=== PATIENT | female | born 1950 | race Caucasian/White ===

== ENCOUNTER 2016-09-14 11:34 | Day surgery (SDC) | payer OTHER ==
[~2016-09-14] VITALS: Ht 142.2 cm; Wt 85.7 kg
[~2016-09-14 11:34] MED LIST: /DULO30CA OR; /INSU7030 SC; /INSULEV SUBQ; ACET1TAB17 PO; ACET50TAOT PO; ACET65TA OR; ADVAIR INH; ASPI1TAB PO; ASPI81CH32 PO; ASPI81TA83 OR; ASPI81TA85 PO; ATOR40TA75 PO; AZEL0.055; BACT800T5 PO; BENI20TA11 OR; CALC500T31 PO; CIPR-250 PO; FLAG500T PO; FLON0.05; FLUT1SPR2; FURO40TA2 PO; GLUC4CHW PO; GLUC4GMTAB PO; HUMA100I SC; HYDR12CA PO; IMOD2TAB16 PO; IRON65TA PO; K-TA10TA OR; LASI40TA OR; LASI40TA PO; LATA5OPD OU; LEVO100T5 PO; LISI-538 PO; LISI10TA4 PO; LISI20TA5 PO; LOPE2CA PO; LOPR50TA OR; METO50TA7 PO; NITR0.4S SL; NITR4TASL SL; NOVO1INJ4 SC; NOVOLOG SUBQ; NOVOLOG100 MG/ML SC; OMEP20TA PO; OMEP20TA7 OR; ONDA4TAB5 PO; PROAAER10 INH; PROVENTIL; ROSU10TA OR; SIMV40TA2 OR; SIMV40TA2 PO; SYMB16INH INH; SYNT100T OR; SYNT125T PO; TRUL0.5I SC; VICTOZA SUBQ; VITA-112 PO; VITA-122 PO; [UNRECOGNIZED DRUG - OTHER] INH; actos PO; antibiotic; asa PO; januvia PO; levamir SC; lortab PO; potassium OR; symbicort INH
[2016-09-14] MEDS ORDERED: LR 500 ML IV ONE (11:45)
[2016-09-14] MEDS ORDERED: LIDOCAINE 1% SDV 5 ML VIAL SQ ONE (11:45)
[2016-09-14] MEDS ORDERED: NS 1,000 ML IV SCH (11:45)
[2016-09-14] MEDS ORDERED: BUPIVACAINE HCL 0.25% 30 ML VIAL As Ordered ONE (12:45)
[2016-09-14] MEDS ORDERED: LIDOCAINE 1% SDV INJ 30 ML VIAL As Ordered ONE ×2 (12:45→13:31)
[2016-09-14] MEDS ORDERED: HEPARIN SOD (PORCINE) 5000 UNITS/ML VIAL As Ordered ONE ×2 (12:46→13:31)
[2016-09-14] MEDS ORDERED: BUPIVACAINE HCL 0.5% 30 ML VIAL As Ordered ONE (13:31)
[2016-09-14] MEDS ORDERED: PROPOFOL 500 MG/50 ML VIAL As Ordered ONE (13:34)
[2016-09-14] MEDS ORDERED: LIDOCAINE 2% INJ 100 MG/5 ML SDV (FOR ANES.) As Ordered ONE (13:34)
[2016-09-14] MEDS ORDERED: MIDAZOLAM INJ 2 MG/2 ML VIAL (J2250) As Ordered ONE (13:34)
[2016-09-14] MEDS ORDERED: fentaNYL 250 MCG/5 ML INJECTION (J3010) As Ordered ONE (13:34)
[2016-09-14] MEDS ORDERED: ONDANSETRON 4MG/2ML VIAL (J2405) As Ordered ONE (13:43)
[2016-09-14] MEDS ORDERED: PHENYLephrine HCL 500 MCG/5 ML (100MCG/ML) SYRINGE (J2370) As Ordered ONE (13:46)
[2016-09-14 15:45] VITALS: BP 196/71
[2016-09-14] MEDS ORDERED: ACETAMINOPHEN TAB 650MG DOSE (2X325MG) PO ONE (15:45)
--- NOTE | 2016-09-14 20:48 | ROOPDOC ---
[facility] Report Of Operation Report of Operation DATE OF PROCEDURE: 09/14/16 PREOPERATIVE DIAGNOSES: Chronic renal insufficiency nearing end-stage renal disease. POSTOPERATIVE DIAGNOSES: Chronic renal insufficiency nearing end-stage renal disease. PROCEDURE: Exploration of the right cephalic vein at the wrist. Right brachiocephalic arteriovenous fistula formation SURGEON: Dr. Manpreet Benito MD HADOOP ADMIN: None INDICATION: Patient is a 66-year-old female with chronic renal insufficiency nearing end-stage renal disease. Patient was evaluated and recommended to undergo a right radiocephalic possible brachiocephalic arteriovenous fistula formation. Risks, benefits and alternative treatment options were discussed with the patient. Benefits included but were not limited to presence of a functioning arteriovenous fistula at the time of hemodialysis initiation preventing need for central tunnel venous catheter for dialysis access. Alternative treatment options included but were not limited to no intervention. Risks included but were not limited to infection, bleeding, worsening of the patient's renal function requiring hemodialysis sooner than expected, failure of arterial venous access to maintain patency with thrombosis, failure of arterial venous access to mature requiring secondary intervention, steal syndrome, possible need for further open surgical intervention, cerebrovascular accident, myocardial infarction, pulmonary embolus, DVT, loss of limb, loss of life and poor outcome. Patient's questions were answered. The patient accepts these risks and consents to proceed with a right radiocephalic possible right brachiocephalic arteriovenous fistula formation. ANESTHESIA: Local Mac with 18 cc of 1% lidocaine mixed with 0.5% Marcaine. ESTIMATED BLOOD LOSS: Approximately 25 mL. IV FLUIDS: 100 cc HEPARIN: None PROTAMINE: None COMPLICATIONS: None. DRAINS: None SPECIMENS: None IMPLANTS: None PROCEDURE: Patient was taken to the operating room, placed supine on the operating room table and prepped and draped in a standard surgical fashion. A time out was then completed with myself and all the staff in the room with confirmation of the correct procedure, patient, and laterality. A tourniquet was applied to the right upper extremity the location of the cephalic vein at the wrist was marked as well as the radial artery. An incision was made overlying the cephalic vein after anesthetized the overlying skin of 1% lidocaine mixed with 0.5% Marcaine. An incision was made with a scalpel and carried down through the skin and subcutaneous tissue with Metzenbaum scissors. The cephalic vein was dissected free sharply and noted to be small and sclerotic and was not a good candidate for use for hemodialysis access creation. Hemostasis was obtained after which the incision was closed using 3- 0 Monocryl to close the skin in a running subcuticular fashion. Steri-Strips and dressings were applied The overlying skin at the antecubital fossa was then anesthetized with 1% lidocaine mixed with 0.5% Marcaine. The incision was then made transversely at the antecubital fossa. The cephalic vein was then sharply dissected free and clamped as far distal as possible. The cephalic vein was then transected with the remnant ligated distally using an a 3-0 silk suture. The brachial artery was then sharply dissected free and encircled with vessel loops. The cephalic vein was then dilated with heparinized saline and noted to flush easily. The cephalic vein was then brought to the brachial artery and was noted to be of adequate length and without tension.. The cephalic vein was then anastomosed to the brachial artery in an end to side fashion, after an arteriotomy was made in the brachial artery and after clamping proximally and distally. Once the anastomosis was completed and good flow was noted in the cephalic vein and the distal brachial artery with ultrasound evaluation. Hemostasis was obtained and the incision was closed using 2-0 Vicryl to approximate the deeper layers and 3-0 Monocryl suture in a running subcuticular fashion to approximate the skin. All instrument, sponge and needle counts were correct at the end of the case. There was good flow noted in the fistula with a thrill palpable. The right hand was well perfused after creation of the brachiocephalic arteriovenous fistula. Dr. Benito was present for and directed the entire case. There were no complications. Patient was transferred to the recovery room awake, alert, extubated and in stable condition. There was a thrill palpable in the cephalic vein in the right upper arm. Craig Benito MD Sep 14, 2016 20:48
--- NOTE | 2016-09-15 22:36 | ECGEPIP ---
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
== END 2016-09-14 16:15 | disposition home or self-care (01) ==
LOC: M SDC 11:34
PROVIDERS: ATTEND Surgery Vascular Surgery
DX: N18.4 Chronic kidney disease, stage 4 (severe) (principal); E11.9 Type 2 diabetes mellitus without complications; I10 Essential (primary) hypertension; I25.2 Old myocardial infarction; Z98.61 Coronary angioplasty status; E78.5 Hyperlipidemia, unspecified; E03.9 Hypothyroidism, unspecified; K44.9 Diaphragmatic hernia without obstruction or gangrene; K21.9 Gastro-esophageal reflux disease without esophagitis; Z79.899 Other long term (current) drug therapy; Z91.040 Latex allergy status; Z88.8 Allergy status to other drugs, medicaments and biological substances; Z79.82 Long term (current) use of aspirin
CPT/HCPCS: 36415; 36821; 84132; 93005; J2250; J2370; J2405; J3010

== ENCOUNTER 2016-09-17 11:57 | Day surgery (SDC) | payer OTHER ==
[~2016-09-17] VITALS: Ht 142.9 cm; Wt 84.6 kg
[2016-09-17] MEDS ORDERED: HUMA75VL SC ×2 (12:13)
[2016-09-17] MEDS ORDERED: AZOP0.2S OU (13:14)
[2016-09-17] MEDS ORDERED: CALC1CAP31 PO (13:14)
[2016-09-17] MEDS ORDERED: CLINDAMYCIN INJ 900MG/6ML VIAL As Ordered ONE (14:23)
[2016-09-17] MEDS ORDERED: CONRAY-60 60% 50ML VIAL (Q9961) As Ordered ONE (14:23)
[2016-09-17] MEDS ORDERED: BUPIVACAINE HCL 0.5% 30 ML VIAL As Ordered ONE ×2 (15:36→16:14)
[2016-09-17] MEDS ORDERED: LIDOCAINE 1% SDV INJ 30 ML VIAL As Ordered ONE ×2 (15:36→16:14)
[2016-09-17] MEDS ORDERED: fentaNYL 100 MCG/2 ML INJECTION (J3010) As Ordered ONE ×2 (15:44→16:46)
[2016-09-17] MEDS ORDERED: MIDAZOLAM INJ 2 MG/2 ML VIAL (J2250) As Ordered ONE (15:44)
[2016-09-17] MEDS ORDERED: HEPARIN SOD (PORCINE) 5000 UNITS/ML VIAL As Ordered ONE (16:14)
[2016-09-17] MEDS ORDERED: ALBUTEROL 90 MCG/ACT 8GM HFA INHALER INH PRN (17:30)
[2016-09-17] MEDS ORDERED: NITROGLYCERIN 0.4 MG SUBL TABLET SL PRN (17:30)
[2016-09-17] MEDS ORDERED: ACETAMINOPHEN TAB 650MG DOSE (2X325MG) PO PRN (17:30)
[2016-09-17] MEDS ORDERED: PERCOCET 5MG/325MG TAB As Ordered ONE (17:57)
[2016-09-17] MEDS ORDERED: NS 1,000 ML IV SCH (18:15)
[2016-09-17] MEDS ORDERED: ONDANSETRON 4MG/2ML VIAL (J2405) IV PRN (18:15)
[2016-09-17] MEDS ORDERED: PERCOCET 5MG/325MG TAB PO PRN (18:15)
[2016-09-17] MEDS ORDERED: fentaNYL 100 MCG/2 ML INJECTION (J3010) IV PRN (18:15)
[2016-09-17 18:45] VITALS: BP 140/82
[2016-09-17 19:15] VITALS: BP 167/72
[2016-09-17 19:45] VITALS: BP 158/70
[2016-09-17 20:45] VITALS: BP 142/67
[2016-09-17 21:45] VITALS: BP 137/64
[2016-09-17] MEDS: ATORVASTATIN 20 MG TAB PO SCH (22:06)
[2016-09-17] MEDS: NORCO, ANEXSIA 5/325MG TABLET (HYDROcodone/ACETAMINOPHEN) PO PRN (22:07)
[2016-09-17] MEDS: METOPROLOL TART 50 MG TAB PO SCH (22:07)
[2016-09-17] MEDS: HumaLOG 75/25 MIX INSULIN PER UNIT SC SCH (22:07)
[2016-09-17] MEDS: BRINZOLAMIDE 1 % OPHTH SUSP (AZOPT) 10ML OU SCH (22:08)
[2016-09-17] MEDS: LATANOPROST 0.005% OPHTH SOLN 2.5 ML OU SCH (22:08)
[2016-09-17 22:45] VITALS: BP 134/63
--- NOTE | 2016-09-17 23:47 | ROOPDOC ---
[facility] Report Of Operation Report of Operation DATE OF PROCEDURE: 09/17/16 PREOPERATIVE DIAGNOSES: Chronic renal insufficiency. Right hand pain, swelling and ischemia. Status post right brachiocephalic arterial venous fistula formation. POSTOPERATIVE DIAGNOSES: Chronic renal insufficiency. Right hand pain, swelling and ischemia. Status post right brachiocephalic arterial venous fistula formation. . PROCEDURE: Ligation right upper arm cephalic vein. Right brachial artery exploration with thromboembolectomy and patch angioplasty with XenoSure biologic patch. Ultrasound evaluation of the right brachial artery. Removal of ligation of cephalic vein and bandaging of cephalic vein. SURGEON: Dr. Manpreet Benito MD ELEMENTARY LIBRARIAN: None INDICATION: Patient is a 66-year-old female with chronic renal insufficiency who underwent creation of a right brachiocephalic arteriovenous fistula after exploration of the stopping at the wrists showed a cephalic vein which was not usable for hemodialysis access creation. Patient presented today with pain swelling and loss of motor and sensory in the right hand. Patient will undergo ligation of the arteriovenous fistula secondary to steal syndrome. Risks benefits and alternative treatment options were discussed with the patient. Benefits including but when not limited to return of function to her right hand and resolution of her symptoms. Alternative treatment options included but were not limited to no intervention. Risks included but were not limited to infection, bleeding, worsening of renal function requiring hemodialysis sooner than expected, cerebrovascular accident, myocardial infarction, pulmonary embolus, deep venous thrombosis, possible need for further surgical intervention , loss of limb, loss of life and poor outcome. Patient's questions were answered. Patient understands and accepts these risks and consents to proceed. ANESTHESIA: Local mac. ESTIMATED BLOOD LOSS: Approximately 20 mL. IV FLUIDS: 100 cc HEPARIN: 5000 units PROTAMINE: None COMPLICATIONS: None. DRAINS: None SPECIMENS: None IMPLANTS: The XenoSure patch for patch angioplasty of the right brachial artery PROCEDURE: Patient was taken to the operating room placed on the operating table in the right upper extremity was prepped and draped in a standard surgical fashion. A timeout was performed with myself and the staff members in the room confirming the correct patient, procedure and laterality. The skin overlying the cephalic vein above the antecubital fossa was anesthetized with 1 % lidocaine mixed with 0.5% Marcaine.. The cephalic vein was encircled with a 2 -0 silk suture and this was used to ligate the cephalic vein. There was still a good thrill in the fistula and a second stab incision was made with ligation of the cephalic vein which resulted in pulsatility of the right brachiocephalic arteriovenous fistula. The right-handed not perfuse well after ligation of the fistula. Radial and ulnar pulses were not able to be found with palpation or with the Doppler ultrasound. Ultrasound was then used to visualize the brachial artery above and below the anastomosis and at the anastomosis. The ultrasound showed the brachial artery to be widely patent needs a compressible free of thrombus above the anastomosis in anastomosis was widely patent but there was thrombus visualized within the brachial artery distal to the anastomosis of the brachial artery to the cephalic vein. The incision overlying the fistula creation was then opened. The brachial artery was sharply dissected free proximally and distally and then clamped after the patient had received heparin for systemic anticoagulations. An arteriotomy was made in the brachial artery and elongated proximally and distally with pot scissors. Upon opening the brachial artery there was thrombus noted distal to the arterial venous anastomosis. This was removed. There was good back bleeding from the brachial artery with retrograde flushing. There was good in flow noted with antegrade flushing of the brachial artery. The arteriotomy was then closed using a XenoSure biologic patch and 5-0 Prolene suture in a running continuous fashion. There was good flow noted in the brachial artery proximal and distal to the arch of venous anastomosis which was evaluated with Doppler ultrasound. The previously placed silk sutures are out. Vein were removed. There was good flow in the arteriovenous fistula. Doppler was then used to evaluate the brachial artery distal to the arch of venous anastomosis and the flow was noted to be monophasic. A 5-0 Prolene suture was then used to reduce the size of the cephalic vein just after the arterial venous anastomosis. There was still good flow in the fistula after bending of the cephalic vein and the flow in the brachial artery distal to the arterial venous anastomosis was now triphasic. The patient also had palpable radial and ulnar pulses at this time. The wounds were then closed with 2-0 Vicryl approximated beeper layers and 3-0 Monocryl to approximate the skin in a running subcuticular fashion. Steri-Strips and dressings were applied. All instrument, sponge and needle counts were correct at the end of the case. There were no complications. Dr. Benito was present for and directed entire case. Patient was transferred to the recovery room extubated, awake, alert and in stable condition. Craig Benito MD Sep 17, 2016 23:46
[2016-09-18] VITALS: BP 121/61
[2016-09-18 04:00] VITALS: BP 137/60
[2016-09-18] MEDS: NORCO, ANEXSIA 5/325MG TABLET (HYDROcodone/ACETAMINOPHEN) PO PRN ×2 (04:13→17:05)
[2016-09-18] MEDS: LEVOTHYROXINE 100MCG TABLET (0.1MG) PO SCH (05:33)
[2016-09-18] MEDS: HumaLOG 75/25 MIX INSULIN PER UNIT SC SCH ×4 (07:30→20:24)
[2016-09-18] MEDS: SYMBICORT 160/4.5MCG INHALER 6GM INH SCH ×2 (07:59→20:51)
[2016-09-18 08:00] VITALS: BP 149/70
[2016-09-18] MEDS ORDERED: ONDANSETRON 4MG/2ML VIAL (J2405) IV PRN (08:30)
[2016-09-18] MEDS ORDERED: ONDANSETRON 4 MG TAB (S0181) PO PRN (08:30)
[2016-09-18] MEDS ORDERED: ONDANSETRON 4MG/2ML VIAL (J2405) As Ordered ONE (08:44)
[2016-09-18] MEDS ORDERED: SLF 3 ML SYR IV PRN (09:00)
[2016-09-18] MEDS: CALCITRIOL 0.25 MCG CAP (S0169) PO SCH (10:00)
[2016-09-18] MEDS: VITAMIN D 1,000 INTERNATIONAL UNITS TABLET PO SCH (10:00)
[2016-09-18] MEDS: OMEPRAZOLE 20 MG CAP PO SCH (10:01)
[2016-09-18] MEDS: ASPIRIN 81 MG ENTERIC TAB PO SCH (10:01)
[2016-09-18] MEDS: METOPROLOL TART 50 MG TAB PO SCH ×2 (10:02→21:09)
[2016-09-18] MEDS: FUROSEMIDE 40 MG TAB PO SCH (10:02)
[2016-09-18] MEDS: BRINZOLAMIDE 1 % OPHTH SUSP (AZOPT) 10ML OU SCH ×2 (10:02→21:08)
[2016-09-18 12:00] VITALS: BP 142/69
[2016-09-18] MEDS: SLF 3 ML SYR IV SCH ×2 (14:00→21:09)
[2016-09-18 16:00] VITALS: BP 135/60
[2016-09-18] MEDS ORDERED: HumaLOG 75/25 MIX INSULIN PER UNIT SC ONE (18:15)
[2016-09-18 20:00] VITALS: BP 142/67
[2016-09-18] MEDS: LATANOPROST 0.005% OPHTH SOLN 2.5 ML OU SCH (21:08)
[2016-09-18] MEDS: ATORVASTATIN 20 MG TAB PO SCH (21:09)
--- NOTE | 2016-09-18 22:29 | IPNPDOC ---
Date Seen The patient was seen on 09/18/16. Progress Note SUBJECTIVE: Patient is complaining of pain in her right hand with some mild numbness and tingling. OBJECTIVE PHYSICAL EXAMINATION: VITAL SIGNS: Please see below. GENERAL: Sitting up eating dinner comfortably HEENT: Normal CARDIOVASCULAR: Regular rate and rhythm. RESPIRATORY: Clear to auscultation bilaterally. ABDOMINAL: Soft nontender nondistended EXTREMITIES: Right upper extremity well-perfused incisions clean, 2+ brachial radial and ulnar pulses the upper extremity. There is swelling in the hand and fingers with good range of motion. NEUROLOGICAL: Awake alert oriented x3 PSYCHOLOGICAL: Normal LABORATORY DATA: Please see below. MICROBIOLOGY: Please see below. DVT prophylaxis ordered?: Patient will risk for DVT and is up and ambulatory. ASSESSMENT AND PLAN: This is a 66-year-old white female with right hand numbness and tingling after undergoing a right brachiocephalic rupture of his fistula. The patient underwent revision of the fistula with findings of thrombosis of the brachial artery distal to the arteriovenous anastomosis. The patient now has good perfusion of the right hand with widely patent brachial artery. PROBLEMS: 1. right hand pain and swelling: Patient's and his well-perfused but continues to have pain and swelling in the right hand. 2 DISPOSITION: Patient for probable discharge 09/19/2016. VS, I&O, 24H, Fishbone Vital Signs/I&O Vital Signs Date Time Temp Pulse Resp B/P (MAP) Pulse Ox O2 Delivery O2 Flow Rate FiO2 09/18/16 21:09 76 142/67 09/18/16 20:00 97.7 16 95 Room Air I&O- Last 24 Hours up to 6 AM 09/18/16 06:00 Intake Total 1100 ml Output Total 720 ml Balance 380 ml Laboratory Data 24H LABS Laboratory Tests 2 09/18/16 06:03: Bedside Glucose (Misc Panel) 80 09/18/16 07:56: Bedside Glucose (Misc Panel) 106 09/18/16 11:42: Bedside Glucose (Misc Panel) 238H 09/18/16 16:45: Bedside Glucose (Misc Panel) 122H 09/18/16 20:07: Bedside Glucose (Misc Panel) 54L 09/18/16 21:07: Bedside Glucose (Misc Panel) 80 Craig Benito MD Sep 18, 2016 22:29
[2016-09-19] VITALS: BP 148/67
[2016-09-19 04:00] VITALS: BP 139/69
[2016-09-19] MEDS: LEVOTHYROXINE 100MCG TABLET (0.1MG) PO SCH (05:27)
[2016-09-19] MEDS: SLF 3 ML SYR IV SCH (05:28)
[2016-09-19 08:00] VITALS: BP 135/67
[2016-09-19] MEDS: SYMBICORT 160/4.5MCG INHALER 6GM INH SCH (08:21)
[2016-09-19 08:33] VITALS: BP 135/67
[2016-09-19] MEDS: FUROSEMIDE 40 MG TAB PO SCH (08:33)
[2016-09-19] MEDS: METOPROLOL TART 50 MG TAB PO SCH (08:33)
[2016-09-19] MEDS: VITAMIN D 1,000 INTERNATIONAL UNITS TABLET PO SCH (08:33)
[2016-09-19] MEDS: CALCITRIOL 0.25 MCG CAP (S0169) PO SCH (08:33)
[2016-09-19] MEDS: OMEPRAZOLE 20 MG CAP PO SCH (08:34)
[2016-09-19] MEDS: BRINZOLAMIDE 1 % OPHTH SUSP (AZOPT) 10ML OU SCH (08:34)
[2016-09-19] MEDS: ASPIRIN 81 MG ENTERIC TAB PO SCH (08:34)
[2016-09-19] MEDS: HumaLOG 75/25 MIX INSULIN PER UNIT SC SCH ×2 (08:37→12:00)
== END 2016-09-19 12:30 | disposition home or self-care (01) ==
LOC: M ED 11:57 → M SDC 12:45 → M PED 18:30 → M SDC 09-19 12:30
PROVIDERS: ATTEND Surgery Vascular Surgery
DX: T82.898A Other specified complication of vascular prosthetic devices, implants and grafts, initial encounter (principal); I74.2 Embolism and thrombosis of arteries of the upper extremities; N18.9 Chronic kidney disease, unspecified; I99.8 Other disorder of circulatory system
CPT/HCPCS: 35321; 37607; 93990; 94640; 99284; C1768; J2250; J2405; J3010

== ENCOUNTER 2016-09-22 08:31 | Emergency (ER) | payer OTHER ==
[~2016-09-22] VITALS: Ht 121.9 cm; Wt 85.0 kg
[~2016-09-22 08:31] MED LIST changes: +AZOP0.2S OU; +CALC1CAP31 PO; +HUMA75VL SC
--- NOTE | 2016-09-22 10:27 | REP ---
Right hip two views : There is no fracture or dislocation. Mineralization and joint spaces are normal. There are no calcifications or foreign bodies. Impression: Negative right hip . Signed by Ronny Muñoz MD 09/22/2016 10:19 A
[2016-09-22] MEDS ORDERED: TYLE500T78 PO (11:28)
[2016-09-22 11:41] VITALS: BP 166/74
== END 2016-09-22 11:40 | disposition home or self-care (01) ==
LOC: M ED 08:31
DX: S73.101A Unspecified sprain of right hip, initial encounter (principal); W18.30XA Fall on same level, unspecified, initial encounter; Y92.018 Other place in single-family (private) house as the place of occurrence of the external cause; Y99.9 Unspecified external cause status; Y93.9 Activity, unspecified; Z88.1 Allergy status to other antibiotic agents; Z88.2 Allergy status to sulfonamides; Z88.5 Allergy status to narcotic agent; Z91.040 Latex allergy status; Z79.82 Long term (current) use of aspirin; Z79.4 Long term (current) use of insulin; Z79.899 Other long term (current) drug therapy

== ENCOUNTER 2016-11-26 15:02 | Emergency (ER) | payer OTHER ==
[~2016-11-26] VITALS: Ht 142.2 cm; Wt 82.0 kg
[~2016-11-26 15:02] MED LIST changes: +TYLE500T78 PO
[2016-11-26] MEDS ORDERED: IRON65TA PO (15:20)
[2016-11-26] MEDS ORDERED: VENTAER IN (15:20)
[2016-11-26 16:21] LABS: BASO % 0.3 % (0.0-1.0); EOS # 0.3 10^3/uL (0.0-0.50); EOS % 2.4 % (0.0-3.0); IMMATURE GRANULOCYTE % 0.3 % (0-0); LYMPH # 1.4 10^3/uL (1.5-4.5); LYMPH % 11.8 % (24.0-44.0); MEAN CORPUSCULAR HEMOGLOBIN 28.4 pg (27.0-33.0); MEAN CORPUSCULAR HGB CONC 32.6 g/dl (32.0-36.5); MEAN CORPUSCULAR VOLUME 87.2 fl (80.0-96.0); MONO # 0.7 10^3/uL (0.0-0.8); MONO % 5.7 % (0.0-5.0); NEUTROPHILS # 9.6 10^3/uL (1.8-7.7); NEUTROPHILS % 79.5 % (36.0-66.0); PLATELET COUNT, AUTOMATED 362 10^3/uL (150-450); RED CELL DISTRIBUTION WIDTH 14.7 % (11.5-14.5)
[2016-11-26 16:33] LABS: INR 0.88
[2016-11-26 18:34] VITALS: BP 163/78
== END 2016-11-26 18:38 | disposition home or self-care (01) ==
LOC: EDBD 15:02 → M ED 15:02
DX: R04.0 Epistaxis (principal); E11.22 Type 2 diabetes mellitus with diabetic chronic kidney disease; N18.9 Chronic kidney disease, unspecified; J45.909 Unspecified asthma, uncomplicated; Z88.1 Allergy status to other antibiotic agents; Z88.2 Allergy status to sulfonamides; Z88.5 Allergy status to narcotic agent; Z88.8 Allergy status to other drugs, medicaments and biological substances; Z91.041 Radiographic dye allergy status; Z79.82 Long term (current) use of aspirin; Z79.84 Long term (current) use of oral hypoglycemic drugs; Z79.899 Other long term (current) drug therapy

== ENCOUNTER → 2017-03-21 | Outpatient (CLI) | payer OTHER | LOC: M RAD 12:57 | DX: N18.6 End stage renal disease (principal); I74.2 Embolism and thrombosis of arteries of the upper extremities | CPT/HCPCS: 93923 ==

== ENCOUNTER 2017-03-24 15:00 | Inpatient (IN) | payer OTHER ==
[2017-03-24] MEDS: ASPIRIN 81 MG CHEW TABLET PO (15:30)
[2017-03-24] MEDS: NITROGLYCERIN 0.4 MG SUBL TABLET SL ×2 (15:31→15:45)
[2017-03-24] MEDS: NS 1,000 ML IV (15:57)
[2017-03-24 16:03] LABS: VENOUS BASE EXCESS -2.7 (-2.0-2.0); VENOUS O2 SATURATION 52.4 % (60.0-80.0); VENOUS PARTIAL PRESSURE CO2 43.7 mmHg (38.0-50.0); VENOUS PARTIAL PRESSURE O2 30.3 mmHg (30.0-50.0); VENOUS PH 7.339 UNITS (7.330-7.430); VENOUS STANDARD HCO3 21.4 MEQ/L; VENOUS TOTAL CO2 24.3 MEQ/L (24.0-28.0)
[2017-03-24 16:10] LABS: BASO % 0.3 % (0.0-1.0); EOS # 0.1 10^3/uL (0.0-0.50); EOS % 0.9 % (0.0-3.0); HEMATOCRIT 30.7 % (36.0-47.0); HEMOGLOBIN 9.6 g/dl (12.0-16.0); IMMATURE GRANULOCYTE % 0.3 % (0-3.0); LYMPH # 1.7 10^3/uL (1.5-4.5); LYMPH % 14.8 % (24.0-44.0); MEAN CORPUSCULAR HEMOGLOBIN 26.2 pg (27.0-33.0); MEAN CORPUSCULAR HGB CONC 31.3 g/dl (32.0-36.5); MEAN CORPUSCULAR VOLUME 83.9 fl (80.0-96.0); MONO # 0.7 10^3/uL (0.0-0.8); MONO % 6.1 % (0.0-5.0); NEUTROPHILS % 77.6 % (36.0-66.0); PLATELET COUNT, AUTOMATED 539 10^3/uL (150-450); RED BLOOD COUNT 3.66 10^6/uL (4.00-5.40); RED CELL DISTRIBUTION WIDTH 15.4 % (11.5-14.5); WHITE BLOOD COUNT 11.7 10^3/uL (4.0-10.0)
[2017-03-24 16:20] LABS: INR 1.11; PROTHROMBIN TIME 14.5 SECONDS (12.4-14.5)
[2017-03-24 16:37] LABS: ALBUMIN 2.7 GM/DL (3.2-5.2); ALBUMIN/GLOBULIN RATIO 0.59 (1.00-1.93); ALKALINE PHOSPHATASE 136 U/L (45-117); ALT/SGPT 45 U/L (12-78); ANION GAP 8 MEQ/L (8-16); AST/SGOT 21 U/L (7-37); BILIRUBIN,DIRECT 0.1 MG/DL (0.0-0.2); BILIRUBIN,TOTAL 0.3 MG/DL (0.2-1.0); BLOOD UREA NITROGEN 54 MG/DL (7-18); CALCIUM LEVEL 8.3 MG/DL (8.8-10.2); CARBON DIOXIDE LEVEL 25 MEQ/L (21-32); CHLORIDE LEVEL 107 MEQ/L (98-107); CPK CREATINE PHOSPHOKINASE 119 U/L (26-192); CREATININE FOR GFR 2.66 MG/DL (0.55-1.30); GLUCOSE, FASTING 91 MG/DL (70-100); LIPASE 426 U/L (73-393); POTASSIUM SERUM 4.9 MEQ/L (3.5-5.1); SODIUM LEVEL 140 MEQ/L (136-145); TOTAL PROTEIN 7.3 GM/DL (6.4-8.2); TROPONIN I < 0.02 NG/ML (< 0.10)
[2017-03-24 16:38] LABS: CK-MB VALUE MASS 1.8 NG/ML (0.0-3.6); MB/CK RELATIVE INDEX 1.51 (< OR =4)
[2017-03-24 16:58] LABS: C REACTIVE PROTEIN QUANTITATIV 3.03 MG/DL (0.00-0.30)
[2017-03-24] MEDS ORDERED: DEXTROSE 50% 50 ML SYRINGE IV (19:00)
[2017-03-24] MEDS ORDERED: GLUCAGON FOR INJ 1 MG VIAL (J1610) SC (19:00)
[2017-03-24] MEDS ORDERED: GLUCOSE 4 GM CHEW TABLET PO (19:00)
[2017-03-24] MEDS ORDERED: ALBUTEROL 90 MCG/ACT 8GM HFA INHALER INH (19:00)
[2017-03-24] MEDS ORDERED: HEPARIN SOD (PORCINE) 5000 UNITS/ML VIAL IV (19:00)
[2017-03-24] MEDS ORDERED: ONDANSETRON 4MG/2ML VIAL (J2405) IV (19:00)
[2017-03-24] MEDS ORDERED: IPRATROPIUM 0.5MG/ALBUTEROL 2.5MG INH SOL UD 3ML (DUONEB)(J7620) NEB (19:30)
[2017-03-24] MEDS ORDERED: CALCITRIOL 0.25 MCG CAP (S0169) PO (19:30)
[2017-03-24 20:24] LABS: CK-MB VALUE MASS 2.1 NG/ML (0.0-3.6); CPK CREATINE PHOSPHOKINASE 180 U/L (26-192); MB/CK RELATIVE INDEX 1.16 (< OR =4); TROPONIN I < 0.02 NG/ML (< 0.10)
[2017-03-24] MEDS: HEPARIN DRIP 25,000 UNITS in APPROPRIATE DILUENT 1 EA IV (20:53)
[2017-03-24] MEDS: NITROGLYCERIN 2% OINT 1 GM *U/D* PKT TOP (20:55)
[2017-03-24] MEDS ORDERED: LEVEMIR (INSULIN DETEMIR) 1 UNITS/0.01ML SC (21:00)
[2017-03-24] MEDS: SENOKOT S TAB PO (21:00)
[2017-03-24] MEDS: HumaLOG INSULIN (NovoLOG) PER UNIT SC (21:00)
[2017-03-24] MEDS: LEVEMIR (INSULIN DETEMIR) 1 UNITS/0.01ML SC (21:00)
[2017-03-24 22:12] LABS: BEDSIDE GLUCOSE 144 MG/DL (80-115)
[2017-03-24] MEDS: SYMBICORT 160/4.5MCG INHALER 6GM INH (22:16)
[2017-03-24] MEDS: METOPROLOL TART 50 MG TAB PO (22:59)
[2017-03-24] MEDS: ATORVASTATIN 20 MG TAB PO (23:00)
[2017-03-24] MEDS: MEROPENEM INJ 500 MG in APPROPRIATE DILUENT 1 EA IV (23:07)
[2017-03-24] MEDS: ISOSORBIDE DIN. (ISORDIL) 30 MG TAB PO (23:41)
[2017-03-25 03:28] LABS: HEMATOCRIT 27.2 % (36.0-47.0); HEMOGLOBIN 8.6 g/dl (12.0-16.0); MEAN CORPUSCULAR HEMOGLOBIN 26.6 pg (27.0-33.0); MEAN CORPUSCULAR HGB CONC 31.6 g/dl (32.0-36.5); MEAN CORPUSCULAR VOLUME 84.2 fl (80.0-96.0); RED BLOOD COUNT 3.23 10^6/uL (4.00-5.40); RED CELL DISTRIBUTION WIDTH 15.5 % (11.5-14.5); WHITE BLOOD COUNT 12.2 10^3/uL (4.0-10.0)
[2017-03-25 03:33] LABS: PLATELET COUNT, AUTOMATED 411 10^3/uL (150-450)
[2017-03-25 03:42] LABS: PARTIAL THROMBOPLASTIN TIME 87.5 SECONDS (26.8-37.9)
[2017-03-25 03:52] LABS: ALBUMIN 2.2 GM/DL (3.2-5.2); ALBUMIN/GLOBULIN RATIO 0.47 (1.00-1.93); ALKALINE PHOSPHATASE 103 U/L (45-117); ALT/SGPT 37 U/L (12-78); ANION GAP 9 MEQ/L (8-16); AST/SGOT 19 U/L (7-37); BILIRUBIN,TOTAL 0.3 MG/DL (0.2-1.0); BLOOD UREA NITROGEN 53 MG/DL (7-18); C REACTIVE PROTEIN QUANTITATIV 2.49 MG/DL (0.00-0.30); CARBON DIOXIDE LEVEL 23 MEQ/L (21-32); CHLORIDE LEVEL 111 MEQ/L (98-107); CPK CREATINE PHOSPHOKINASE 286 U/L (26-192); CREATININE FOR GFR 2.66 MG/DL (0.55-1.30); GLUCOSE, FASTING 109 MG/DL (70-100); POTASSIUM SERUM 4.1 MEQ/L (3.5-5.1); SODIUM LEVEL 143 MEQ/L (136-145); T UPTAKE 35 % (30-39); THYROXINE (T4) 8.7 UG/DL (4.5-12.0); TOTAL PROTEIN 6.9 GM/DL (6.4-8.2); TROPONIN I < 0.02 NG/ML (< 0.10)
[2017-03-25 03:57] LABS: CK-MB VALUE MASS 2.8 NG/ML (0.0-3.6); MB/CK RELATIVE INDEX 0.97 (< OR =4)
[2017-03-25] MEDS: ISOSORBIDE DIN. (ISORDIL) 30 MG TAB PO ×3 (05:44→22:09)
[2017-03-25] MEDS: LEVOTHYROXINE 100MCG TABLET (0.1MG) PO (06:00)
[2017-03-25] MEDS: HumaLOG INSULIN (NovoLOG) PER UNIT SC ×4 (08:53→21:00)
[2017-03-25] MEDS: VITAMIN D 1,000 INTERNATIONAL UNITS TABLET PO (08:54)
[2017-03-25] MEDS: FERROUS SULFATE 325MG TAB PO (08:54)
[2017-03-25] MEDS: CALCITRIOL 0.25 MCG CAP (S0169) PO (08:54)
[2017-03-25] MEDS: ASPIRIN 81 MG ENTERIC TAB PO (08:54)
[2017-03-25] MEDS: METOPROLOL TART 50 MG TAB PO ×2 (08:55→22:09)
[2017-03-25] MEDS: FUROSEMIDE 40 MG TAB PO (08:55)
[2017-03-25] MEDS: SENOKOT S TAB PO ×2 (08:55→22:09)
[2017-03-25] MEDS: OMEPRAZOLE 20 MG CAP PO (08:55)
[2017-03-25] MEDS: LEVEMIR (INSULIN DETEMIR) 1 UNITS/0.01ML SC ×2 (08:55→21:00)
[2017-03-25] MEDS ORDERED: IRON SUCROSE 100MG 5ML VIAL (J1756 PER 1MG) IV (09:30)
[2017-03-25 09:40] LABS: INR 1.19; PROTHROMBIN TIME 15.3 SECONDS (12.4-14.5)
[2017-03-25 09:53] LABS: PARTIAL THROMBOPLASTIN TIME 126.1 SECONDS (26.8-37.9)
[2017-03-25] MEDS: SYMBICORT 160/4.5MCG INHALER 6GM INH ×2 (09:56→20:41)
[2017-03-25] MEDS: MEROPENEM INJ 500 MG in APPROPRIATE DILUENT 1 EA IV ×2 (11:42→22:08)
[2017-03-25] MEDS: INFLUENZA VIRUS VACCINE HIGH DOSE 0.5 ML SYRINGE (90662) IM (11:43)
[2017-03-25 12:20] LABS: BEDSIDE GLUCOSE 115 MG/DL (80-115)
[2017-03-25] MEDS: IRON SUCROSE 25 MG in NS 50 ML IV (12:23)
[2017-03-25] MEDS: IRON SUCROSE 475 MG in NS 250 ML IV (13:59)
[2017-03-25 17:18] LABS: BEDSIDE GLUCOSE 112 MG/DL (80-115)
[2017-03-25 18:16] LABS: PARTIAL THROMBOPLASTIN TIME 167.8 SECONDS (26.8-37.9)
[2017-03-25] MEDS: ATORVASTATIN 20 MG TAB PO (22:08)
[2017-03-26 01:40] LABS: PARTIAL THROMBOPLASTIN TIME 102.3 SECONDS (26.8-37.9)
[2017-03-26] MEDS: HEPARIN DRIP 25,000 UNITS in APPROPRIATE DILUENT 1 EA IV (03:05)
[2017-03-26 03:33] LABS: BEDSIDE GLUCOSE 233 MG/DL (80-115)
[2017-03-26 05:04] LABS: HEMATOCRIT 26.4 % (36.0-47.0); HEMOGLOBIN 8.3 g/dl (12.0-16.0); MEAN CORPUSCULAR HGB CONC 31.4 g/dl (32.0-36.5); MEAN CORPUSCULAR VOLUME 82.8 fl (80.0-96.0); PLATELET COUNT, AUTOMATED 451 10^3/uL (150-450); RED BLOOD COUNT 3.19 10^6/uL (4.00-5.40); RED CELL DISTRIBUTION WIDTH 15.3 % (11.5-14.5); WHITE BLOOD COUNT 10.1 10^3/uL (4.0-10.0)
[2017-03-26 05:28] LABS: ALBUMIN 2.2 GM/DL (3.2-5.2); ALBUMIN/GLOBULIN RATIO 0.48 (1.00-1.93); ALKALINE PHOSPHATASE 105 U/L (45-117); ALT/SGPT 31 U/L (12-78); ANION GAP 8 MEQ/L (8-16); AST/SGOT 17 U/L (7-37); BILIRUBIN,TOTAL 0.2 MG/DL (0.2-1.0); BLOOD UREA NITROGEN 48 MG/DL (7-18); CALCIUM LEVEL 8.3 MG/DL (8.8-10.2); CARBON DIOXIDE LEVEL 25 MEQ/L (21-32); CHLORIDE LEVEL 110 MEQ/L (98-107); GLOMERULAR FILTRATION RATE 20.5 (>45); GLUCOSE, FASTING 90 MG/DL (70-100); SODIUM LEVEL 143 MEQ/L (136-145); TOTAL PROTEIN 6.8 GM/DL (6.4-8.2)
[2017-03-26 05:54] LABS: PARTIAL THROMBOPLASTIN TIME 76.6 SECONDS (26.8-37.9)
[2017-03-26] MEDS: LEVOTHYROXINE 100MCG TABLET (0.1MG) PO (06:06)
[2017-03-26] MEDS: ISOSORBIDE DIN. (ISORDIL) 30 MG TAB PO (06:06)
[2017-03-26] MEDS: SYMBICORT 160/4.5MCG INHALER 6GM INH ×2 (06:52→20:00)
[2017-03-26] MEDS: HumaLOG INSULIN (NovoLOG) PER UNIT SC ×4 (07:38→20:51)
[2017-03-26] MEDS: ASPIRIN 81 MG ENTERIC TAB PO (10:00)
[2017-03-26] MEDS: VITAMIN D 1,000 INTERNATIONAL UNITS TABLET PO (10:00)
[2017-03-26] MEDS: CALCITRIOL 0.25 MCG CAP (S0169) PO (10:00)
[2017-03-26] MEDS: SENOKOT S TAB PO ×2 (10:01→21:57)
[2017-03-26] MEDS: OMEPRAZOLE 20 MG CAP PO (10:01)
[2017-03-26] MEDS: METOPROLOL TART 50 MG TAB PO ×2 (10:01→21:57)
[2017-03-26] MEDS: FERROUS SULFATE 325MG TAB PO (10:01)
[2017-03-26] MEDS: FUROSEMIDE 40 MG TAB PO (10:02)
[2017-03-26] MEDS: LEVEMIR (INSULIN DETEMIR) 1 UNITS/0.01ML SC ×2 (10:04→21:58)
[2017-03-26] MEDS: MEROPENEM INJ 500 MG in APPROPRIATE DILUENT 1 EA IV ×2 (10:04→22:25)
[2017-03-26 12:10] LABS: BEDSIDE GLUCOSE 204 MG/DL (80-115)
[2017-03-26 17:18] LABS: BEDSIDE GLUCOSE 127 MG/DL (80-115)
[2017-03-26 18:05] LABS: IRON (FE) 259 UG/DL (50-170); PERCENT SATURATION 101.6 % (13.2-45.0); TOTAL IRON BINDING CAPACITY 255 UG/DL (250-450)
[2017-03-26] MEDS: ATORVASTATIN 20 MG TAB PO (21:57)
[2017-03-26] MEDS: HEPARIN SOD (PORCINE) 5000 UNITS/ML VIAL SQ (21:58)
[2017-03-27] MEDS: LEVOTHYROXINE 100MCG TABLET (0.1MG) PO (05:46)
[2017-03-27 06:21] LABS: HEMATOCRIT 29.5 % (36.0-47.0); MEAN CORPUSCULAR HEMOGLOBIN 25.6 pg (27.0-33.0); MEAN CORPUSCULAR HGB CONC 30.5 g/dl (32.0-36.5); MEAN CORPUSCULAR VOLUME 83.8 fl (80.0-96.0); PLATELET COUNT, AUTOMATED 471 10^3/uL (150-450); RED BLOOD COUNT 3.52 10^6/uL (4.00-5.40); RED CELL DISTRIBUTION WIDTH 15.7 % (11.5-14.5); WHITE BLOOD COUNT 10.2 10^3/uL (4.0-10.0)
[2017-03-27 06:41] LABS: ALBUMIN 2.3 GM/DL (3.2-5.2); ALBUMIN/GLOBULIN RATIO 0.47 (1.00-1.93); ALKALINE PHOSPHATASE 105 U/L (45-117); ALT/SGPT 29 U/L (12-78); ANION GAP 9 MEQ/L (8-16); AST/SGOT 20 U/L (7-37); BILIRUBIN,TOTAL 0.2 MG/DL (0.2-1.0); BLOOD UREA NITROGEN 44 MG/DL (7-18); CALCIUM LEVEL 8.6 MG/DL (8.8-10.2); CARBON DIOXIDE LEVEL 23 MEQ/L (21-32); CHLORIDE LEVEL 109 MEQ/L (98-107); CREATININE FOR GFR 2.54 MG/DL (0.55-1.30); GLOMERULAR FILTRATION RATE 20.1 (>45); GLUCOSE, FASTING 90 MG/DL (70-100); POTASSIUM SERUM 4.2 MEQ/L (3.5-5.1); SODIUM LEVEL 141 MEQ/L (136-145); TOTAL PROTEIN 7.2 GM/DL (6.4-8.2)
[2017-03-27] MEDS: HumaLOG INSULIN (NovoLOG) PER UNIT SC ×4 (07:27→21:00)
[2017-03-27] MEDS: SYMBICORT 160/4.5MCG INHALER 6GM INH ×2 (08:13→21:21)
[2017-03-27] MEDS: LEVEMIR (INSULIN DETEMIR) 1 UNITS/0.01ML SC (09:00)
[2017-03-27] MEDS: HEPARIN SOD (PORCINE) 5000 UNITS/ML VIAL SQ ×2 (09:20→19:41)
[2017-03-27] MEDS: FERROUS SULFATE 325MG TAB PO (09:20)
[2017-03-27] MEDS: SENOKOT S TAB PO ×2 (09:21→19:43)
[2017-03-27] MEDS: FUROSEMIDE 40 MG TAB PO (09:21)
[2017-03-27] MEDS: OMEPRAZOLE 20 MG CAP PO (09:21)
[2017-03-27] MEDS: ASPIRIN 81 MG ENTERIC TAB PO (09:22)
[2017-03-27] MEDS: METOPROLOL TART 50 MG TAB PO ×2 (09:22→19:43)
[2017-03-27] MEDS: VITAMIN D 1,000 INTERNATIONAL UNITS TABLET PO (09:22)
[2017-03-27] MEDS: CALCITRIOL 0.25 MCG CAP (S0169) PO (09:22)
[2017-03-27] MEDS: MEROPENEM INJ 500 MG in APPROPRIATE DILUENT 1 EA IV ×2 (10:38→22:03)
[2017-03-27] MEDS ORDERED: ACETAMINOPHEN TAB 650MG DOSE (2X325MG) PO (13:15)
[2017-03-27] MEDS: ATORVASTATIN 20 MG TAB PO (19:42)
[2017-03-27 21:15] LABS: BEDSIDE GLUCOSE 140 MG/DL (80-115)
[2017-03-28 02:39] LABS: BEDSIDE GLUCOSE 88 MG/DL (80-115)
[2017-03-28 02:39] LABS: BEDSIDE GLUCOSE 174 MG/DL (80-115)
[2017-03-28 02:39] LABS: BEDSIDE GLUCOSE 146 MG/DL (80-115)
[2017-03-28 02:39] LABS: BEDSIDE GLUCOSE 64 MG/DL (80-115)
[2017-03-28 02:39] LABS: BEDSIDE GLUCOSE 84 MG/DL (80-115)
[2017-03-28 02:39] LABS: BEDSIDE GLUCOSE 48 MG/DL (80-115)
[2017-03-28] MEDS: LEVOTHYROXINE 100MCG TABLET (0.1MG) PO (06:04)
[2017-03-28 06:13] LABS: HEMATOCRIT 28.5 % (36.0-47.0); HEMOGLOBIN 8.8 g/dl (12.0-16.0); MEAN CORPUSCULAR HEMOGLOBIN 25.9 pg (27.0-33.0); MEAN CORPUSCULAR HGB CONC 30.9 g/dl (32.0-36.5); MEAN CORPUSCULAR VOLUME 83.8 fl (80.0-96.0); PLATELET COUNT, AUTOMATED 448 10^3/uL (150-450); RED CELL DISTRIBUTION WIDTH 15.6 % (11.5-14.5); WHITE BLOOD COUNT 10.6 10^3/uL (4.0-10.0)
[2017-03-28 06:45] LABS: ALBUMIN 2.3 GM/DL (3.2-5.2); ALBUMIN/GLOBULIN RATIO 0.47 (1.00-1.93); ALKALINE PHOSPHATASE 110 U/L (45-117); ALT/SGPT 31 U/L (12-78); ANION GAP 9 MEQ/L (8-16); AST/SGOT 24 U/L (7-37); BILIRUBIN,TOTAL 0.3 MG/DL (0.2-1.0); BLOOD UREA NITROGEN 41 MG/DL (7-18); CALCIUM LEVEL 8.7 MG/DL (8.8-10.2); CARBON DIOXIDE LEVEL 22 MEQ/L (21-32); CHLORIDE LEVEL 109 MEQ/L (98-107); CREATININE FOR GFR 2.51 MG/DL (0.55-1.30); GLOMERULAR FILTRATION RATE 20.4 (>45); GLUCOSE, FASTING 87 MG/DL (70-100); POTASSIUM SERUM 4.1 MEQ/L (3.5-5.1); SODIUM LEVEL 140 MEQ/L (136-145); TOTAL PROTEIN 7.2 GM/DL (6.4-8.2)
[2017-03-28] MEDS: HumaLOG INSULIN (NovoLOG) PER UNIT SC ×2 (07:30→12:00)
[2017-03-28] MEDS: SYMBICORT 160/4.5MCG INHALER 6GM INH (07:41)
[2017-03-28] MEDS: LEVEMIR (INSULIN DETEMIR) 1 UNITS/0.01ML SC (09:00)
[2017-03-28] MEDS ORDERED: DARBEPOETIN 100 MCG/0.5 ML *DIALYSIS* SYRINGE (J0882) SC (09:00)
[2017-03-28] MEDS: HEPARIN SOD (PORCINE) 5000 UNITS/ML VIAL SQ (09:12)
[2017-03-28] MEDS: CALCITRIOL 0.25 MCG CAP (S0169) PO (09:13)
[2017-03-28] MEDS: METOPROLOL TART 50 MG TAB PO (09:13)
[2017-03-28] MEDS: OMEPRAZOLE 20 MG CAP PO (09:13)
[2017-03-28] MEDS: VITAMIN D 1,000 INTERNATIONAL UNITS TABLET PO (09:13)
[2017-03-28] MEDS: SENOKOT S TAB PO (09:13)
[2017-03-28] MEDS: FUROSEMIDE 40 MG TAB PO (09:13)
[2017-03-28] MEDS: FERROUS SULFATE 325MG TAB PO (09:13)
[2017-03-28] MEDS: LevoFLOXacin 250 MG TABLET PO (09:13)
[2017-03-28] MEDS: ASPIRIN 81 MG ENTERIC TAB PO (09:13)
[2017-03-28] MEDS: DARBEPOETIN 100 MCG/0.5 ML *NON-DIALYSIS* SYRINGE (J0881) SC (10:29)
[2017-03-28] MEDS ORDERED: FUROSEMIDE 40 MG TAB PO (21:00)
[2017-03-30 05:59] LABS: BEDSIDE GLUCOSE 230 MG/DL (80-115)
== END 2017-03-28 16:15 | disposition home or self-care (01) | DRG 194 ==
LOC: M PCU 03-25 00:10 → M ED 15:00 → M MS5PR 03-26 20:15 → M ED INP 19:00
DX: J18.9 Pneumonia, unspecified organism (principal); N18.4 Chronic kidney disease, stage 4 (severe); N17.9 Acute kidney failure, unspecified; I13.0 Hypertensive heart and chronic kidney disease with heart failure and stage 1 through stage 4 chronic kidney disease, or unspecified chronic kidney disease; I50.32 Chronic diastolic (congestive) heart failure; D63.1 Anemia in chronic kidney disease; I25.10 Atherosclerotic heart disease of native coronary artery without angina pectoris; M19.90 Unspecified osteoarthritis, unspecified site; E78.5 Hyperlipidemia, unspecified; J45.909 Unspecified asthma, uncomplicated; I44.7 Left bundle-branch block, unspecified; Z88.8 Allergy status to other drugs, medicaments and biological substances; Z91.040 Latex allergy status; Z88.1 Allergy status to other antibiotic agents; Z79.82 Long term (current) use of aspirin; Z79.899 Other long term (current) drug therapy; Z79.4 Long term (current) use of insulin; I16.0 Hypertensive urgency; E03.9 Hypothyroidism, unspecified; G47.33 Obstructive sleep apnea (adult) (pediatric)

== ENCOUNTER → 2017-03-24 | Outpatient (REF) | payer OTHER ==
[2017-03-24 18:55] LABS: FERRITIN 88 NG/ML (8-252); IRON (FE) 20 UG/DL (50-170); PERCENT SATURATION 8.1 % (13.2-45.0); TOTAL IRON BINDING CAPACITY 247 UG/DL (250-450)
== END ==
LOC: M LAB REF 17:12
DX: N18.4 Chronic kidney disease, stage 4 (severe) (principal); D63.1 Anemia in chronic kidney disease

== ENCOUNTER → 2017-04-25 | Outpatient (CLI) | payer OTHER | LOC: M RAD 12:51 | DX: N18.6 End stage renal disease (principal); I74.2 Embolism and thrombosis of arteries of the upper extremities | CPT/HCPCS: G0365 ==

== ENCOUNTER 2017-07-26 13:45 | Day surgery (SDC) | payer OTHER ==
[~2017-07-26 13:45] MED LIST changes: -/DULO30CA OR; -/INSU7030 SC; -/INSULEV SUBQ; -ACET1TAB17 PO; -ACET50TAOT PO; -ACET65TA OR; -ADVAIR INH; -ASPI1TAB PO; -ASPI81CH32 PO; -ASPI81TA83 OR; -ASPI81TA85 PO; -ATOR40TA75 PO; -AZEL0.055; -AZOP0.2S OU; -BACT800T5 PO; -BENI20TA11 OR; -CALC1CAP31 PO; -CALC500T31 PO; -CIPR-250 PO; +DEXTROSE 50% 50 ML SYRINGE; -FLAG500T PO; -FLON0.05; -FLUT1SPR2; -FURO40TA2 PO; -GLUC4CHW PO; -GLUC4GMTAB PO; -HUMA100I SC; -HUMA75VL SC; -HYDR12CA PO; -IMOD2TAB16 PO; -IRON65TA PO; -K-TA10TA OR; -LASI40TA OR; -LASI40TA PO; -LATA5OPD OU; -LEVO100T5 PO; -LISI-538 PO; -LISI10TA4 PO; -LISI20TA5 PO; -LOPE2CA PO; -LOPR50TA OR; -METO50TA7 PO; -NITR0.4S SL; -NITR4TASL SL; -NOVO1INJ4 SC; -NOVOLOG SUBQ; -NOVOLOG100 MG/ML SC; -OMEP20TA PO; -OMEP20TA7 OR; -ONDA4TAB5 PO; -PROAAER10 INH; -PROVENTIL; -ROSU10TA OR; -SIMV40TA2 OR; -SIMV40TA2 PO; -SYMB16INH INH; -SYNT100T OR; -SYNT125T PO; -TRUL0.5I SC; -TYLE500T78 PO; -VICTOZA SUBQ; -VITA-112 PO; -VITA-122 PO; -[UNRECOGNIZED DRUG - OTHER] INH; -actos PO; -antibiotic; -asa PO; -januvia PO; -levamir SC; -lortab PO; -potassium OR; -symbicort INH
[2017-07-26] MEDS ORDERED: LR 1,000 ML IV (14:00)
[2017-07-26 14:10] LABS: BEDSIDE GLUCOSE 56 MG/DL (80-115)
[2017-07-26] MEDS ORDERED: MIDAZOLAM INJ 2 MG/2 ML VIAL (J2250) As Ordered (14:35)
[2017-07-26] MEDS ORDERED: fentaNYL 100 MCG/2 ML INJECTION (J3010) As Ordered (14:35)
[2017-07-26] MEDS ORDERED: PROPOFOL 200 MG/20 ML VIAL As Ordered ×7 (14:36→17:46)
[2017-07-26] MEDS ORDERED: LIDOCAINE 2% INJ 100 MG/5 ML SDV (FOR ANES.) As Ordered (14:36)
[2017-07-26] MEDS: NS 1,000 ML IV (14:36)
[2017-07-26] MEDS: DEXTROSE 50% 50 ML VIAL IV (14:37)
[2017-07-26 14:41] LABS: POTASSIUM SERUM 4.3 MEQ/L (3.5-5.1)
[2017-07-26 15:24] LABS: BEDSIDE GLUCOSE 104 MG/DL (80-115)
[2017-07-26] MEDS: HEPARIN SOD (PORCINE) 5000 UNITS/ML VIAL As Ordered ×2 (15:46→16:33)
[2017-07-26] MEDS ORDERED: HEPARIN SOD (PORCINE) 5000 UNITS/ML VIAL As Ordered (17:26)
[2017-07-26] MEDS: LIDOCAINE 1% MDV 20ML VIAL As Ordered (18:03)
[2017-07-26] MEDS: BUPIVACAINE HCL 0.5% 10 ML VIAL As Ordered (18:03)
[2017-07-26 18:36] LABS: BEDSIDE GLUCOSE 73 MG/DL (80-115)
[2017-07-26] MEDS ORDERED: fentaNYL 100 MCG/2 ML INJECTION (J3010) IV (19:00)
[2017-07-26] MEDS ORDERED: ONDANSETRON 4MG/2ML VIAL (J2405) IV (19:00)
== END 2017-07-26 19:36 | disposition home or self-care (01) ==
LOC: M SDC 13:45
DX: E11.22 Type 2 diabetes mellitus with diabetic chronic kidney disease (principal); I12.9 Hypertensive chronic kidney disease with stage 1 through stage 4 chronic kidney disease, or unspecified chronic kidney disease; N18.9 Chronic kidney disease, unspecified; I25.10 Atherosclerotic heart disease of native coronary artery without angina pectoris; I25.2 Old myocardial infarction; K21.9 Gastro-esophageal reflux disease without esophagitis; E03.9 Hypothyroidism, unspecified; K44.9 Diaphragmatic hernia without obstruction or gangrene; Z79.899 Other long term (current) drug therapy; Z87.891 Personal history of nicotine dependence; E78.5 Hyperlipidemia, unspecified; D64.9 Anemia, unspecified
CPT/HCPCS: 37246

== ENCOUNTER → 2017-08-16 | Outpatient (CLI) | payer OTHER ==
[~2017-08-16] MED LIST changes: -DEXTROSE 50% 50 ML SYRINGE; +ISOVUE-300 61% 50ML VIAL (Q9967) As Ordered; +MIDAZOLAM INJ 2 MG/2 ML VIAL (J2250) As Ordered; +fentaNYL 100 MCG/2 ML INJECTION (J3010) As Ordered
== END | disposition home or self-care (01) ==
LOC: M IRPRO 09:40
DX: T82.898A Other specified complication of vascular prosthetic devices, implants and grafts, initial encounter (principal); I70.208 Unspecified atherosclerosis of native arteries of extremities, other extremity; N18.9 Chronic kidney disease, unspecified; E11.22 Type 2 diabetes mellitus with diabetic chronic kidney disease; I12.9 Hypertensive chronic kidney disease with stage 1 through stage 4 chronic kidney disease, or unspecified chronic kidney disease
CPT/HCPCS: 36901

== ENCOUNTER → 2017-08-17 | Outpatient (REF) | payer OTHER ==
[2017-08-17 18:43] LABS: CHOLESTEROL LEVEL 112 MG/DL (<200); TRIGLYCERIDES LEVEL 115 MG/DL (<150)
[2017-08-17 18:44] LABS: CHOLESTEROL RISK RATIO 2.666 (<5); FERRITIN 122 NG/ML (8-252); HDL CHOLESTEROL 42 MG/DL (>40); IRON (FE) 36 UG/DL (50-170); NON-HDL-C 70 MG/DL; PERCENT SATURATION 15.5 % (13.2-45.0); TOTAL IRON BINDING CAPACITY 233 UG/DL (250-450)
[2017-08-19 10:50] LABS: HEPATITIS B SURFACE ANTIGEN NEGATIVE (NEGATIVE)
[2017-08-19 11:12] LABS: HEPATITIS C VIRUS ABY INDEX 0.1 INDEX (<0.8)
[2017-08-19 11:13] LABS: HEPATITIS B CORE ANTIBODY IGM NEGATIVE (NEGATIVE)
[2017-08-19 11:55] LABS: HEPATITIS B SURFACE ANTIBODY NEGATIVE (POSITIVE)
== END ==
LOC: M LAB REF 17:21
DX: N18.4 Chronic kidney disease, stage 4 (severe) (principal); D63.1 Anemia in chronic kidney disease
CPT/HCPCS: 83550

== ENCOUNTER 2017-08-18 15:52 | Emergency (ER) | payer OTHER ==
[2017-08-18] MEDS: NORCO, ANEXSIA 5/325MG TABLET (HYDROcodone/ACETAMINOPHEN) PO (17:50)
== END 2017-08-18 20:06 | disposition home or self-care (01) ==
LOC: M ED 15:52
DX: M51.36 Other intervertebral disc degeneration, lumbar region (principal); M54.32 Sciatica, left side; M43.16 Spondylolisthesis, lumbar region; W10.9XXA Fall (on) (from) unspecified stairs and steps, initial encounter; Y92.099 Unspecified place in other non-institutional residence as the place of occurrence of the external cause; Y93.9 Activity, unspecified; Y99.9 Unspecified external cause status; E11.9 Type 2 diabetes mellitus without complications; I50.9 Heart failure, unspecified; I25.2 Old myocardial infarction; I10 Essential (primary) hypertension; E78.5 Hyperlipidemia, unspecified; E03.9 Hypothyroidism, unspecified; M54.9 Dorsalgia, unspecified; F41.9 Anxiety disorder, unspecified; F32.9 Major depressive disorder, single episode, unspecified; J44.9 Chronic obstructive pulmonary disease, unspecified; G47.33 Obstructive sleep apnea (adult) (pediatric); K21.9 Gastro-esophageal reflux disease without esophagitis; Z79.82 Long term (current) use of aspirin; Z79.4 Long term (current) use of insulin; Z79.899 Other long term (current) drug therapy; Z88.8 Allergy status to other drugs, medicaments and biological substances; Z88.1 Allergy status to other antibiotic agents; Z88.5 Allergy status to narcotic agent; Z91.040 Latex allergy status
CPT/HCPCS: 72110

== ENCOUNTER 2017-10-04 17:44 | Inpatient (IN) | payer OTHER ==
[2017-10-04 18:25] LABS: VENOUS BASE EXCESS -11.8 (-2.0-2.0); VENOUS HCO3 13.4 MEQ/L (23.0-27.0); VENOUS O2 SATURATION 97.2 % (60.0-80.0); VENOUS PARTIAL PRESSURE CO2 27.8 mmHg (38.0-50.0); VENOUS PARTIAL PRESSURE O2 108.1 mmHg (30.0-50.0); VENOUS PH 7.301 UNITS (7.330-7.430); VENOUS STANDARD HCO3 14.9 MEQ/L; VENOUS TOTAL CO2 14.3 MEQ/L (24.0-28.0)
[2017-10-04 18:34] LABS: BASO % 0.2 % (0.0-1.0); EOS # 0.2 10^3/uL (0.0-0.50); EOS % 1.9 % (0.0-3.0); HEMATOCRIT 35.9 % (36.0-47.0); HEMOGLOBIN 11.3 g/dl (12.0-15.5); IMMATURE GRANULOCYTE % 0.3 % (0-3.0); LYMPH # 0.9 10^3/uL (1.5-4.5); LYMPH % 7.3 % (24.0-44.0); MEAN CORPUSCULAR HGB CONC 31.5 g/dl (32.0-36.5); MEAN CORPUSCULAR VOLUME 89.1 fl (80.0-96.0); MONO # 0.7 10^3/uL (0.0-0.8); MONO % 6.1 % (0.0-5.0); NEUTROPHILS # 10.2 10^3/uL (1.8-7.7); NEUTROPHILS % 84.2 % (36.0-66.0); PLATELET COUNT, AUTOMATED 380 10^3/uL (150-450); RED BLOOD COUNT 4.03 10^6/uL (4.00-5.40); RED CELL DISTRIBUTION WIDTH 14.5 % (11.5-14.5); WHITE BLOOD COUNT 12.2 10^3/uL (4.0-10.0)
[2017-10-04 18:55] LABS: BEDSIDE GLUCOSE 88 MG/DL (80-115)
[2017-10-04 18:56] LABS: AMMONIA 28 uMOL/L (<32)
[2017-10-04 18:59] LABS: LACTIC ACID SEPSIS PROTOCOL 0.9 MMOL/L (0.4-2.0)
[2017-10-04 19:00] LABS: ALBUMIN 3.2 GM/DL (3.2-5.2); ALKALINE PHOSPHATASE 104 U/L (45-117); ALT/SGPT 31 U/L (12-78); ANION GAP 11 MEQ/L (8-16); AST/SGOT 25 U/L (7-37); BILIRUBIN,DIRECT 0.1 MG/DL (0.0-0.2); BILIRUBIN,TOTAL 0.4 MG/DL (0.2-1.0); BLOOD UREA NITROGEN 57 MG/DL (7-18); CALCIUM LEVEL 9.3 MG/DL (8.8-10.2); CARBON DIOXIDE LEVEL 27 MEQ/L (21-32); CHLORIDE LEVEL 102 MEQ/L (98-107); CPK CREATINE PHOSPHOKINASE 183 U/L (26-192); CREATININE FOR GFR 3.54 MG/DL (0.55-1.30); GLOMERULAR FILTRATION RATE 13.6 (>45); GLUCOSE, FASTING 80 MG/DL (70-100); POTASSIUM SERUM 3.6 MEQ/L (3.5-5.1); SODIUM LEVEL 140 MEQ/L (136-145); TOTAL PROTEIN 8.5 GM/DL (6.4-8.2); TROPONIN I < 0.02 NG/ML (< 0.10)
[2017-10-04 19:06] LABS: CK-MB VALUE MASS 2.6 NG/ML (<3.6); MB/CK RELATIVE INDEX 1.42 (< OR =4)
[2017-10-04 20:11] LABS: BEDSIDE GLUCOSE 84 MG/DL (80-115)
[2017-10-04 20:59] LABS: PHOSPHORUS LEVEL 4.1 MG/DL (2.5-4.9)
[2017-10-04] MEDS: HumaLOG INSULIN (NovoLOG) PER UNIT SC (21:00)
[2017-10-04 22:18] LABS: CPK CREATINE PHOSPHOKINASE 184 U/L (26-192)
[2017-10-04 22:29] LABS: BEDSIDE GLUCOSE 44 MG/DL (80-115)
[2017-10-04] MEDS: D5W/0.9% SODIUM CHLORIDE 1,000 ML IV (22:29)
[2017-10-04] MEDS ORDERED: DEXTROSE 50% 50 ML SYRINGE IV (22:30)
[2017-10-04] MEDS ORDERED: GLUCAGON FOR INJ 1 MG VIAL (J1610) SC (22:30)
[2017-10-04] MEDS ORDERED: GLUCOSE 4 GM CHEW TABLET PO (22:30)
[2017-10-04 22:45] LABS: BEDSIDE GLUCOSE 74 MG/DL (80-115)
[2017-10-04 23:08] LABS: BEDSIDE GLUCOSE 83 MG/DL (80-115)
[2017-10-05 00:28] LABS: APPEARANCE, URINE HAZY (CLEAR); BACTERIA, URINE AUTO 1+ (NEGATIVE); BILIRUBIN, URINE AUTO NEGATIVE (NEGATIVE); BLOOD, URINE BLOOD 1+ (NEGATIVE); COLOR, URINE YELLOW (YELLOW); GLUCOSE, URINE (UA) AUTO NEGATIVE (NEGATIVE); KETONE, URINE AUTO NEGATIVE (NEGATIVE); LEUKOCYTE ESTERASE, URINE AUTO 3+ (NEGATIVE); NITRITE, URINE AUTO NEGATIVE (NEGATIVE); PROTEIN, URINE AUTO 1+ mg/dL (NEGATIVE); RBC, URINE AUTO 1 /HPF (0-3); SPECIFIC GRAVITY URINE AUTO 1.008 (1.002-1.035); SQUAMOUS EPITHELIAL CELL UR AU 0 /HPF (0-6); UROBILINOGEN, URINE AUTO 0.2 mg/dL (0.0-2.0); WBC, URINE AUTO 121 /HPF (0-3)
[2017-10-05] MEDS ORDERED: ACETAMINOPHEN 500 MG TAB PO (00:30)
[2017-10-05] MEDS: SYMBICORT 160/4.5MCG INHALER 6GM INH ×3 (00:30→20:04)
[2017-10-05] MEDS ORDERED: ALBUTEROL 90 MCG/ACT 8GM HFA INHALER INH (00:30)
[2017-10-05 00:38] LABS: SODIUM,RANDOM URINE 57 MEQ/L
[2017-10-05 00:38] LABS: CREATININE,RANDOM URINE 54.4 MG/DL
[2017-10-05 00:46] LABS: MAGNESIUM LEVEL 2.1 MG/DL (1.8-2.4)
[2017-10-05] MEDS: ATORVASTATIN 20 MG TAB PO ×2 (01:20→20:20)
[2017-10-05] MEDS: METOPROLOL TART 50 MG TAB PO ×3 (01:21→20:22)
[2017-10-05 02:01] LABS: BEDSIDE GLUCOSE 141 MG/DL (80-115)
[2017-10-05 05:00] LABS: BEDSIDE GLUCOSE 148 MG/DL (80-115)
[2017-10-05 06:15] LABS: BASO % 0.3 % (0.0-1.0); EOS # 0.3 10^3/uL (0.0-0.50); EOS % 2.9 % (0.0-3.0); HEMATOCRIT 30.4 % (36.0-47.0); HEMOGLOBIN 9.7 g/dl (12.0-15.5); IMMATURE GRANULOCYTE % 0.4 % (0-3.0); LYMPH # 1.1 10^3/uL (1.5-4.5); LYMPH % 11.6 % (24.0-44.0); MEAN CORPUSCULAR HEMOGLOBIN 27.9 pg (27.0-33.0); MEAN CORPUSCULAR HGB CONC 31.9 g/dl (32.0-36.5); MEAN CORPUSCULAR VOLUME 87.4 fl (80.0-96.0); MONO # 0.8 10^3/uL (0.0-0.8); MONO % 8.4 % (0.0-5.0); NEUTROPHILS # 7.1 10^3/uL (1.8-7.7); NEUTROPHILS % 76.4 % (36.0-66.0); PLATELET COUNT, AUTOMATED 339 10^3/uL (150-450); RED BLOOD COUNT 3.48 10^6/uL (4.00-5.40); RED CELL DISTRIBUTION WIDTH 14.4 % (11.5-14.5); WHITE BLOOD COUNT 9.3 10^3/uL (4.0-10.0)
[2017-10-05 06:16] LABS: ALBUMIN 2.5 GM/DL (3.2-5.2); ALBUMIN/GLOBULIN RATIO 0.57 (1.00-1.93); ALKALINE PHOSPHATASE 82 U/L (45-117); ALT/SGPT 21 U/L (12-78); ANION GAP 11 MEQ/L (8-16); AST/SGOT 20 U/L (7-37); BILIRUBIN,TOTAL 0.4 MG/DL (0.2-1.0); BLOOD UREA NITROGEN 55 MG/DL (7-18); CALCIUM LEVEL 8.7 MG/DL (8.8-10.2); CARBON DIOXIDE LEVEL 23 MEQ/L (21-32); CHLORIDE LEVEL 108 MEQ/L (98-107); CREATININE FOR GFR 3.03 MG/DL (0.55-1.30); GLOMERULAR FILTRATION RATE 16.3 (>45); GLUCOSE, FASTING 138 MG/DL (70-100); MAGNESIUM LEVEL 2.2 MG/DL (1.8-2.4); POTASSIUM SERUM 3.5 MEQ/L (3.5-5.1); SODIUM LEVEL 142 MEQ/L (136-145); TOTAL PROTEIN 6.9 GM/DL (6.4-8.2)
[2017-10-05 07:07] LABS: ESTIMATED AVERAGE GLUCOSE 148 MG/DL (60-110); HEMOGLOBIN A1c 6.8 %
[2017-10-05 08:32] LABS: BEDSIDE GLUCOSE 159 MG/DL (80-115)
[2017-10-05] MEDS: ASPIRIN 81 MG ENTERIC TAB PO (09:05)
[2017-10-05] MEDS: OMEPRAZOLE 20 MG CAP PO (09:05)
[2017-10-05] MEDS: D5W/0.9% SODIUM CHLORIDE 1,000 ML IV (09:05)
[2017-10-05] MEDS: LEVOTHYROXINE 100MCG TABLET (0.1MG) PO (09:05)
[2017-10-05] MEDS: FERROUS SULFATE 325MG TAB PO (09:05)
[2017-10-05] MEDS: HumaLOG INSULIN (NovoLOG) PER UNIT SC ×4 (09:05→20:00)
[2017-10-05] MEDS: PREVNAR 13 VACCINE SYRINGE (CPT CODE:90670) IM (09:06)
[2017-10-05] MEDS: VITAMIN D 1,000 INTERNATIONAL UNITS TABLET PO (09:06)
[2017-10-05] MEDS: HumaLOG 75/25 MIX INSULIN PER UNIT SC (09:51)
[2017-10-05 11:18] LABS: BEDSIDE GLUCOSE 198 MG/DL (80-115)
[2017-10-05 16:31] LABS: BEDSIDE GLUCOSE 66 MG/DL (80-115)
[2017-10-05 17:02] LABS: BEDSIDE GLUCOSE 60 MG/DL (80-115)
[2017-10-05 17:52] LABS: BEDSIDE GLUCOSE 114 MG/DL (80-115)
[2017-10-05 18:44] LABS: BEDSIDE GLUCOSE 131 MG/DL (80-115)
[2017-10-05 19:55] LABS: BEDSIDE GLUCOSE 127 MG/DL (80-115)
[2017-10-05 23:54] LABS: BEDSIDE GLUCOSE 175 MG/DL (80-115)
[2017-10-06 00:15] LABS: BEDSIDE GLUCOSE 173 MG/DL (80-115)
[2017-10-06 03:23] LABS: BEDSIDE GLUCOSE 146 MG/DL (80-115)
[2017-10-06 04:12] LABS: HEMATOCRIT 29.4 % (36.0-47.0); HEMOGLOBIN 9.3 g/dl (12.0-15.5); MEAN CORPUSCULAR HGB CONC 31.6 g/dl (32.0-36.5); MEAN CORPUSCULAR VOLUME 88.6 fl (80.0-96.0); PLATELET COUNT, AUTOMATED 329 10^3/uL (150-450); RED BLOOD COUNT 3.32 10^6/uL (4.00-5.40); RED CELL DISTRIBUTION WIDTH 14.4 % (11.5-14.5); WHITE BLOOD COUNT 8.2 10^3/uL (4.0-10.0)
[2017-10-06 04:29] LABS: CK-MB VALUE MASS 2.5 NG/ML (<3.6); CPK CREATINE PHOSPHOKINASE 155 U/L (26-192); MAGNESIUM LEVEL 2.1 MG/DL (1.8-2.4); MB/CK RELATIVE INDEX 1.61 (< OR =4); TROPONIN I < 0.02 NG/ML (< 0.10)
[2017-10-06 04:37] LABS: ANION GAP 10 MEQ/L (8-16); BLOOD UREA NITROGEN 48 MG/DL (7-18); CALCIUM LEVEL 8.1 MG/DL (8.8-10.2); CARBON DIOXIDE LEVEL 26 MEQ/L (21-32); CHLORIDE LEVEL 110 MEQ/L (98-107); CREATININE FOR GFR 3.14 MG/DL (0.55-1.30); GLOMERULAR FILTRATION RATE 15.7 (>45); GLUCOSE, FASTING 139 MG/DL (70-100); MAGNESIUM LEVEL 2.1 MG/DL (1.8-2.4); POTASSIUM SERUM 4.4 MEQ/L (3.5-5.1); SODIUM LEVEL 146 MEQ/L (136-145)
[2017-10-06] MEDS ORDERED: NITROGLYCERIN 0.4 MG SUBL TABLET SL (05:00)
[2017-10-06] MEDS: HumaLOG INSULIN (NovoLOG) PER UNIT SC ×2 (07:30→12:06)
[2017-10-06] MEDS: SYMBICORT 160/4.5MCG INHALER 6GM INH (07:58)
[2017-10-06] MEDS: ASPIRIN 81 MG ENTERIC TAB PO (08:33)
[2017-10-06] MEDS: LEVOTHYROXINE 100MCG TABLET (0.1MG) PO (08:33)
[2017-10-06] MEDS: OMEPRAZOLE 20 MG CAP PO (08:33)
[2017-10-06] MEDS: FERROUS SULFATE 325MG TAB PO (08:33)
[2017-10-06] MEDS: VITAMIN D 1,000 INTERNATIONAL UNITS TABLET PO (08:34)
[2017-10-06] MEDS: METOPROLOL TART 50 MG TAB PO (08:34)
[2017-10-06 11:37] LABS: BEDSIDE GLUCOSE 187 MG/DL (80-115)
== END 2017-10-06 14:40 | disposition home or self-care (01) | DRG 638 ==
LOC: M ED 17:44 → M ED INP 20:06 → M MSPAV 22:18
PROVIDERS: Hospitalist
DX: E10.641 Type 1 diabetes mellitus with hypoglycemia with coma (principal); N18.4 Chronic kidney disease, stage 4 (severe); N17.9 Acute kidney failure, unspecified; I25.10 Atherosclerotic heart disease of native coronary artery without angina pectoris; E03.9 Hypothyroidism, unspecified; Z95.2 Presence of prosthetic heart valve; M19.90 Unspecified osteoarthritis, unspecified site; E78.5 Hyperlipidemia, unspecified; I12.9 Hypertensive chronic kidney disease with stage 1 through stage 4 chronic kidney disease, or unspecified chronic kidney disease; J45.909 Unspecified asthma, uncomplicated; Z79.899 Other long term (current) drug therapy; Z79.82 Long term (current) use of aspirin; Z79.4 Long term (current) use of insulin; Z88.8 Allergy status to other drugs, medicaments and biological substances; Z88.2 Allergy status to sulfonamides; Z91.040 Latex allergy status

== ENCOUNTER 2017-11-02 13:14 | Outpatient (CLI) | payer OTHER ==
[2017-11-02] MEDS: IRON SUCROSE 25 MG in NS 50 ML IV (13:49)
[2017-11-02] MEDS: IRON SUCROSE 275 MG in NS 250 ML IV (15:00)
== END 2017-11-02 18:30 | disposition home or self-care (01) ==
LOC: M INFU 13:14
DX: D50.9 Iron deficiency anemia, unspecified (principal); Z88.1 Allergy status to other antibiotic agents; Z88.8 Allergy status to other drugs, medicaments and biological substances; Z91.040 Latex allergy status
CPT/HCPCS: J1756

== ENCOUNTER → 2017-12-23 | Outpatient (CLI) | payer OTHER | LOC: M PLARAD 13:15 | DX: M47.896 Other spondylosis, lumbar region (principal); M51.26 Other intervertebral disc displacement, lumbar region | CPT/HCPCS: 72148 ==

== ENCOUNTER → 2018-03-25 | Outpatient (CLI) | payer MEDICARE, OTHER ==
[~2018-03-25] MED LIST changes: +/DULO30CA OR; +/INSU7030 SC; +/INSULEV SUBQ; +ACET1TAB55 PO; +ACET500T15 PO; +ACET65TA OR; +ADVAIR INH; +AMLO5TAB6 PO; +ASPI1TAB PO; +ASPI81CH32 PO; +ASPI81TA83 OR; +ASPI81TA85 PO; +ATOR40TA75 PO; +AZEL0.055; +AZOP0.2S OU; +BACT800T5 PO; +BENI20TA11 OR; +CALC1CAP31 PO; +CALC500T31 PO; +CIPR-250 PO; +FLAG500T PO; +FLON0.05; +FLUT1SPR2; +FURO40TA2 PO; +GLUC4CHW19 PO; +GLUC4GMTAB PO; +HUMA100I SC; +HUMA100I5; +HUMA75IN2 SC; +HUMA75VL SC; +HUMA75VLDS SC; +HYDR12CA PO; +IMOD2TAB16 PO; +INSUHUMDS SC; +IRON65TA PO; -ISOVUE-300 61% 50ML VIAL (Q9967) As Ordered; +K-TA10TA OR; +LASI40TA OR; +LASI40TA PO; +LATA5OPD OU; +LEVA250T13 PO; +LEVO100T5 PO; +LISI-538 PO; +LISI10TA4 PO; +LISI20TA5 PO; +LOPE2CA PO; +LOPR50TA OR; +METO50TA7 PO; -MIDAZOLAM INJ 2 MG/2 ML VIAL (J2250) As Ordered; +NITR0.4S SL; +NITR4TASL SL; +NORCOTAB PO; +NOVO1INJ4 SC; +NOVOINJ3 SC; +NOVOLOG SUBQ; +NOVOLOG100 MG/ML SC; +OMEP20TA PO; +OMEP20TA7 OR; +ONDA4TAB5 PO; +PROAAER10 INH; +PROVENTIL; +ROSU10TA OR; +SIMV40TA2 OR; +SIMV40TA2 PO; +SYMB16INH INH; +SYNT100T OR; +SYNT125T PO; +TIZA-208 PO; +TORS20TA2 PO; +TRES1INJ; +TRUL0.5I SC; +TYLE500T78 PO; +VENTAER INH; +VICTOZA SUBQ; +VITA-112 PO; +VITA-121 PO; +VITA-122 PO; +[UNRECOGNIZED DRUG - OTHER] INH; +actos PO; +antibiotic; +asa PO; -fentaNYL 100 MCG/2 ML INJECTION (J3010) As Ordered; +januvia PO; +levamir SC; +lortab PO; +potassium OR; +symbicort INH
--- NOTE | 2018-03-26 09:02 | REP ---
CHEST PA AND LATERAL: 03/25/2018. COMPARISON: CT chest 10/05/2017, AP chest 10/04/2017, 03/24/2017. CLINICAL HISTORY: Dyspnea. Dialysis patient with history of LA, CHF, and hypertension. FINDINGS: Lung aquino are well inflated. Scarring peripherally in the left mid upper lung zone, adjacent pleural thickening and stranding into the left midchest, stable from multiple prior studies. Heavier basilar fibrotic change, but no definite effusion or dense consolidation. There is no pneumothorax or pneumomediastinum. Heart size mildly prominent with left atrial enlargement. Calcified tortuous aorta. This is unchanged. Airway is intact. No widening of the mediastinum. There are advanced degenerative changes of the left shoulder at the glenohumeral joint as before with [id number] and severe chondromalacia. There is no acute compression deformity on the lateral view. IMPRESSION: 1. Peripheral scarring left mid upper lung zone, unchanged with no effusion or dense consolidation. 2. Cardiomegaly with left atrial and ventricular enlargement. No christian edema. 3. Tortuous calcified aorta. Lateral pleural thickening on both sides other than that heavier scarring in the left upper lung zone. 4. Advanced degenerative changes left glenohumeral joint with sclerosis and [id number] changes. Electronically Signed by August Amezquita MD 03/26/2018 09:14 A
== END ==
LOC: M RAD 14:11
PROVIDERS: ATTEND Internal Medicine Nephrology
DX: I51.7 Cardiomegaly (principal); I70.0 Atherosclerosis of aorta; J92.9 Pleural plaque without asbestos; M19.012 Primary osteoarthritis, left shoulder; M94.212 Chondromalacia, left shoulder

== ENCOUNTER → 2018-03-27 | Outpatient (REF) | payer MEDICARE ==
[2018-03-27 17:49] LABS: CHOLESTEROL LEVEL 161 MG/DL (<200); CHOLESTEROL RISK RATIO 2.824 (<5); HDL CHOLESTEROL 57 MG/DL (>40); LDL CHOLESTEROL 82 MG/DL (<100); NON-HDL-C 104 MG/DL; TRIGLYCERIDES LEVEL 108 MG/DL (<150)
[2018-03-29 10:15] LABS: HEPATITIS B SURFACE ANTIGEN NEGATIVE (NEGATIVE)
[2018-03-29 10:30] LABS: HEPATITIS C VIRUS ABY INDEX < 0.0 INDEX (<0.8)
[2018-03-29 10:31] LABS: HEPATITIS B CORE ANTIBODY IGM NEGATIVE (NEGATIVE)
[2018-03-29 11:59] LABS: HEPATITIS B SURFACE ANTIBODY NEGATIVE (POSITIVE)
== END ==
LOC: M LAB REF 17:03
PROVIDERS: ATTEND Internal Medicine Nephrology
DX: E11.22 Type 2 diabetes mellitus with diabetic chronic kidney disease (principal); N18.4 Chronic kidney disease, stage 4 (severe); D63.1 Anemia in chronic kidney disease

== ENCOUNTER → 2018-05-08 | Outpatient (CLI) | payer MEDICARE ==
[~2018-05-08] MED LIST changes: -/DULO30CA OR; -/INSU7030 SC; -/INSULEV SUBQ; -ASPI1TAB PO; -ASPI81CH32 PO; +ASPI81CH33 PO; +ASPI81TA26 PO; +BUPIVACAINE HCL 0.5% 10 ML VIAL As Ordered ONE; +CRES10TA32 OR; +CYMB1CAP5 OR; -GLUC4GMTAB PO; +HYDR-3715 PO; +ISOVUE-300 61% 100ML VIAL (Q9967) As Ordered ONE; +ISOVUE-370 76% 125ML VIAL (Q9967 PER ML) As Ordered ONE; +LATA0.0013 OU; -LATA5OPD OU; +LEAD1CHW PO; +LEVE0.01 SUBQ; +LEVO112T2 PO; +LIDOCAINE 2% MDV 20 ML VIAL As Ordered ONE; +METO1TAB7 PO; +MIDAZOLAM INJ 2 MG/2 ML VIAL (J2250) As Ordered ONE; -NORCOTAB PO; -ROSU10TA OR; -TIZA-208 PO; +TIZA4TAB4 PO; +fentaNYL 100 MCG/2 ML INJECTION (J3010) As Ordered ONE
--- NOTE | 2018-05-08 13:06 | ROOPDOC ---
[facility] Report Of Operation Report of Operation DATE OF PROCEDURE: 05/08/2018 PREOPERATIVE DIAGNOSIS: End-stage renal disease. Dysfunctional autogenous left brachiocephalic arteriovenous fistula. POSTOPERATIVE DIAGNOSIS: End-stage renal disease. Dysfunctional autogenous left brachiocephalic arteriovenous fistula. PROCEDURE: Left brachiocephalic arteriovenous fistulogram. Retrograde left brachial artery angiogram. Recanalization of occluded left cephalic vein Left cephalic vein angioplasty with 5 mm X 200 mm balloon. Left subclavian vein angioplasty with 5 mm X 200 mm balloon SURGEON: Dr. Patito Benito MD TRANSPORTATION MUSEUM HELPER: [Mary Garcia, Cynthia Diaz] INDICATION: Patient is a with end-stage renal disease who dialyzes through a left brachiocephalic arteriovenous fistula. Patient has had . Patient has had difficulty with excessive bleeding on decannulization as well as pulsatility within the arteriovenous fistula. Patient will undergo a left brachiocephalic arteriovenous fistulogram with possible angioplasty, atherectomy and/or stenting. Risks, benefits and alternative treatment options were discussed with the patient. Benefits included but were not limited to improved functioning of the arterial venous fistula and maintained patency. Alternative treatment options included but were not limited to no intervention. Risks included but were not limited to infection, bleeding, loss of arteriovenous access, steal syndrome, possible need for open surgical intervention, anesthetic complications, allergic reaction or complication from the prepping and draping materials, scarring of the skin, hematoma formation, bruising, possible need for transfusion of blood products, cerebrovascular accident, myocardial infarction, pulmonary embolus, deep venous thrombosis, loss of limb, loss of life and poor outcome. Patient's questions were answered. Patient voices understanding of these risks, benefits and alternative treatment options. Patient voices acceptance of these risks associated with the procedure and consents to proceed with a fistulogram with possible angioplasty, atherectomy and/or stenting. ANESTHESIA: Local with mL of 2% lidocaine SEDATION TIME: [No sedation was given]. SEDATION TIME:. The sedation was administered by . The cardiopulmonary monitoring during sedation was performed by . Administration of sedation and cardiopulmonary monitoring were performed under my direct supervision and direction. I was present for and directed the entire case. There were no sedation related complications. Patient was stable post sedation and returned to pre-sedation status. ESTIMATED BLOOD LOSS: Approximately mL. IV FLUIDS: mL. HEPARIN: None PROTAMINE: None FLUORO TIME: minutes CONTRAST: mL. of isovue 300 COMPLICATIONS: None DRAINS: None. SPECIMENS: None. IMPLANTS: None PROCEDURE: Patient was taken to the angiography suite, placed supine on the angiography room table and then prepped and draped in a standard surgical fashion. A procedural time-out was conducted by myself and the team members involved in the procedure confirming the correct patient, procedure and laterality. The left brachiocephalic arteriovenous fistula was then cannulated with [a micro-puncture needle]. A fistulogram was performed showing . A micropuncture wire was then advanced through the micropuncture needle which was up-sized to a micropuncture sheath. A Jensen wire was advanced through the catheter and used to cross through the cephalic vein into the central venous system. The catheter was exchanged for a 5 Armenian sheath over the Jensen wire. The mm x mm balloon was then used to angioplasty the cephalic vein with a prolonged inflation time. The mm x mm balloon was then used to angioplasty the subclavian vein with a prolonged inflation time. The completion fistulogram was performed showing resolution of the stenosis with good flow through the cephalic vein subclavian vein junction. During inflation of the angioplasty balloon within the cephalic vein a retrograde brachial artery angiogram was performed showing [the remainder of the cephalic vein from the cannulation site to the brachial artery to be widely patent. There was good flow noted in the brachial artery proximal and distal to the arteriovenous anastomosis and no stenosis at the arteriovenous anastomosis.] The sheath was removed and a 2-0 Prolene pursestring suture was placed at the puncture site for hemostasis. Dressings were then applied. Patient tolerated the procedure well. All instrument, sponge and needle counts were correct at the end of the case. There were no complications. Dr. Benito was present for and directed the entire case. Patient was transferred to the recovery area and subsequently [to the floor in stable condition] once the 2-0 Prolene pursestring suture was removed and good hemostasis noted. PROCEDURE: Patient was taken to the angiography suite, placed supine on the angiography room table and then prepped and draped in a standard surgical fashion. A procedural time-out was conducted by myself and the team members involved in the procedure confirming the correct patient, procedure and laterality. The left brachiocephalic arteriovenous fistula was then cannulated with [a micro-puncture needle]. A fistulogram was performed showing . A micropuncture wire was then advanced through the micropuncture needle which was up-sized to a micropuncture sheath. A Jensen wire was advanced through the catheter and used to cross through the cephalic vein into the central venous system. The catheter was exchanged for a 5 Armenian sheath over the Jensen wire. The mm x mm balloon was then used to angioplasty the cephalic vein with a prolonged inflation time. The mm x mm balloon was then used to angioplasty the subclavian vein with a prolonged inflation time. The completion fistulogram was performed showing resolution of the stenosis with good flow through the cephalic vein subclavian vein junction. During inflation of the angioplasty balloon within the cephalic vein, a retrograde brachial artery angiogram was p erformed showing [the remainder of the cephalic vein from the cannulation site to the brachial artery to be widely patent. There was good flow noted in the brachial artery proximal and distal to the arteriovenous anastomosis and no stenosis at the arteriovenous anastomosis.] A second cannulation of the left brachiocephalic arteriovenous fistula was performed using a micropuncture needle after anesthetizing the overlying skin and subcutaneous tissue with 2% lidocaine. The micropuncture wire was advanced to the micropuncture needle which was upsized to a micropuncture sheath. A Jensen wire was advanced through the micropuncture sheath was upsized to a 5 Armenian sheath. An angled Glidewire and angle glide catheter were then used to traverse to stop pain into the brachial artery and a retrograde fashion. A selective brachial artery angiogram was then performed showing . The brachial artery was then angioplasty with a mm x mm balloon with a prolonged inflation time. A catheter was again placed in the brachial artery and followup angiogram and fistulogram were performed showing no residual stenosis, with good flow through the brachial artery into the arteriovenous fistula as well as in the brachial artery distal to the arteriovenous anastomosis. The sheaths were removed and a 2-0 Prolene pursestring sutures were placed at the puncture sites for hemostasis. Dressings were then applied. Patient tolerated the procedure well. All instrument, sponge and needle counts were correct at the end of the case. There were no complications. Dr. Benito was present for and directed the entire case. Patient was transferred to the recovery area and subsequently [to the floor in stable condition] once the 2-0 Prolene pursestring sutures were removed and good hemostasis noted. RADIOLOGIC SUPERVISION AND INTERPRETATION: The fistulogram showed the cephalic vein to have a percent stenosis in [cephalic vein subclavian vein junction]. The cephalic vein underwent angioplasty with a mm x mm balloon with prolonged inflation time. The subclavian vein underwent angioplasty with a mm x mm balloon with prolonged inflation time. The completion fistulogram showed resolution of the stenosis with excellent flow through the cephalic and subclavian veins. The retrograde brachial artery angiogram showed . A second cannulation of the arteriovenous fistula was performed. A catheter was then placed in the brachial artery and a retrograde fashion. The selective brachial artery angiogram with runoff and fistula gram showed . The brachial artery was then angioplasty with a mm x mm balloon with a prolonged inflation time. The cephalic vein at the antecubital fossa was then angioplasty with a mm x mm balloon with a prolonged inflation time. A completion selective brachial artery angiogram with runoff and fistulogram showed [ resolution of the stenosis at the arteriovenous anastomosis with good flow in the brachial artery proximal and distal to the arteriovenous anastomosis, as well as good flow into the arteriovenous fistula.] CONCLUSION:The fistula which had poor flow, weak thrill, decreased pulse within these vein with compression of the cephalic vein in the upper arm and pulsatility within the cephalic vein noted prior to the intervention had a strongly palpable thrill at the completion of the intervention and was stable for use for dialysis access. Craig Benito MD May 08, 2018 13:06
== END | disposition home or self-care (01) ==
LOC: M IRPRO 06:40
PROVIDERS: ATTEND Surgery Vascular Surgery
DX: T82.858A Stenosis of other vascular prosthetic devices, implants and grafts, initial encounter (principal); N18.6 End stage renal disease; Z99.2 Dependence on renal dialysis

== ENCOUNTER 2018-05-09 09:08 | Inpatient (IN) | payer MEDICARE ==
[~2018-05-09] VITALS: Ht 142.2 cm; Wt 87.8 kg
[2018-05-09] VITALS (10 sets, daily range): BP systolic 93–151; BP diastolic 52–90
[2018-05-09] MEDS: VITAMIN D 1,000 INTERNATIONAL UNITS TABLET PO SCH (09:00)
[2018-05-09] MEDS: OMEPRAZOLE 20 MG CAP PO SCH (09:00)
[~2018-05-09 09:08] MED LIST changes: +ASPI1TAB PO; +ASPI81CH32 PO; -ASPI81CH33 PO; -ASPI81TA26 PO; -BUPIVACAINE HCL 0.5% 10 ML VIAL As Ordered ONE; -ISOVUE-300 61% 100ML VIAL (Q9967) As Ordered ONE; -ISOVUE-370 76% 125ML VIAL (Q9967 PER ML) As Ordered ONE; -LEVO112T2 PO; -LIDOCAINE 2% MDV 20 ML VIAL As Ordered ONE; -METO1TAB7 PO; -MIDAZOLAM INJ 2 MG/2 ML VIAL (J2250) As Ordered ONE; +TIZA-208 PO; -TIZA4TAB4 PO; -fentaNYL 100 MCG/2 ML INJECTION (J3010) As Ordered ONE
[2018-05-09] MEDS ORDERED: HEPARIN 1,000 UNITS/ML 10ML VIAL (FOR RADIOLOGY& DIALYSIS ONLY) As Ordered ONE (09:26)
[2018-05-09] MEDS ORDERED: BUPIVACAINE HCL 0.5% 10 ML VIAL As Ordered ONE (09:26)
[2018-05-09] MEDS ORDERED: LIDOCAINE 2% MDV 20 ML VIAL As Ordered ONE (09:27)
[2018-05-09] MEDS ORDERED: MIDAZOLAM INJ 2 MG/2 ML VIAL (J2250) As Ordered ONE (10:22)
[2018-05-09] MEDS ORDERED: fentaNYL 100 MCG/2 ML INJECTION (J3010) As Ordered ONE (10:22)
[2018-05-09 11:01] LABS: HEMOGLOBIN 9.2 g/dl (12.0-15.5); MEAN CORPUSCULAR HGB CONC 30.7 g/dl (32.0-36.5); MEAN CORPUSCULAR VOLUME 91.2 fl (80.0-96.0); PLATELET COUNT, AUTOMATED 352 10^3/uL (150-450); RED BLOOD COUNT 3.29 10^6/uL (4.00-5.40); WHITE BLOOD COUNT 13.5 10^3/uL (4.0-10.0)
[2018-05-09 11:04] LABS: ABG BASE EXCESS -3.9 (-2.0-2.0); ABG HCO3 20.8 MEQ/L (22.0-26.0); ABG O2 SATURATION 99.1 % (95.0-99.0); ABG PARTIAL PRESSURE CO2 35.8 mmHg (35.0-45.0); ABG PARTIAL PRESSURE O2 157.7 mmHg (75.0-100.0); ABG STANDARD HCO3 21.3 MEQ/L (22.0-26.0); ABG TOTAL CO2 21.8 MEQ/L (23.0-31.0); ABG pH (ARTERIAL) 7.381 UNITS (7.350-7.450)
[2018-05-09 11:12] LABS: INR 1.11; PROTHROMBIN TIME 14.5 SECONDS (12.1-14.4)
[2018-05-09] MEDS ORDERED: HEPARIN 1,000 UNITS/ML 10ML VIAL (FOR RADIOLOGY& DIALYSIS ONLY) XX ONE (11:15)
[2018-05-09 11:24] LABS: CALCIUM LEVEL 8.5 MG/DL (8.8-10.2); CREATININE FOR GFR 3.49 MG/DL (0.55-1.30); GLOMERULAR FILTRATION RATE 13.9 (>45)
[2018-05-09 11:27] LABS: ALBUMIN 2.8 GM/DL (3.2-5.2); BILIRUBIN,TOTAL 0.5 MG/DL (0.2-1.0); CALCIUM LEVEL 8.2 MG/DL (8.8-10.2); CREATININE FOR GFR 3.49 MG/DL (0.55-1.30); GLOMERULAR FILTRATION RATE 13.9 (>45); MB/CK RELATIVE INDEX 2.01 (< OR =4); PHOSPHORUS LEVEL 5.4 MG/DL (2.5-4.9); POTASSIUM SERUM 5.1 MEQ/L (3.5-5.1); TOTAL PROTEIN 6.2 GM/DL (6.4-8.2); TROPONIN I 0.02 NG/ML (< 0.10)
--- NOTE | 2018-05-09 11:27 | REP ---
Chest one-view HISTORY: Chest pain Comparison: 03/25/2018 Parenchymal densities are present in the left mid and lower lung consistent with scarring. The right lung is clear. The cardiac silhouette is enlarged. The pulmonary vasculature is normal in appearance. Degenerative changes present in the left shoulder. A catheter is present in the region of the right atrium. Impression: No acute disease. Electronically Signed by Breezy Arenas MD 05/09/2018 11:19 A
[2018-05-09] MEDS ORDERED: ATROPINE SULF 1MG/10ML SYRINGE (J0461) ONE (11:28)
[2018-05-09] MEDS ORDERED: CALCIUM CHLORIDE 10% 1 GM/10 ML SYR ONE (11:28)
[2018-05-09] MEDS ORDERED: TORS20TA2 PO (11:52)
[2018-05-09] MEDS ORDERED: LEVO112T2 PO (11:52)
[2018-05-09] MEDS ORDERED: METO1TAB7 PO (11:52)
[2018-05-09] MEDS ORDERED: HUMA75VL SC (11:52)
[2018-05-09] MEDS ORDERED: HumaLOG INSULIN (NovoLOG) PER UNIT SC SCH (12:00)
[2018-05-09] MEDS ORDERED: ALBUTEROL 90 MCG/ACT 8GM HFA INHALER INH ONE (12:15)
[2018-05-09 12:27] LABS: FREE T4 1.27 NG/DL (0.76-1.46); THYROID STIMULATING HORMONE 4.09 uIU/ML (0.358-3.740)
[2018-05-09] MEDS: HEPARIN SOD (PORCINE) 5000 UNITS/ML VIAL SQ SCH ×2 (13:47→20:40)
[2018-05-09] MEDS: ASPIRIN 325 MG TAB PO SCH (13:47)
--- NOTE | 2018-05-09 15:23 | ECGEPIP ---
Stationary ECG Study [facility] Test Date: 2018-05-09 Pat Name: MARYBETH HERNADEZ Department: Room: [place] [address] Gender: F [employer]print Reader: : 1950 Requested By: GOVIND Rockwell Order Number: [id number] Reading MD: Kari Hopper Measurements Intervals [place] Rate: 76 P: 65 DE: 154 QRS: -1 QRSD: 136 T: -89 QT: 405 QTc: 456 Interpretive Statements SINUS RHYTHM LEFT BUNDLE BRANCH BLOCK stable c/w 10/06/17 Electronically Signed On 05-09-2018 15:23:20 EDT by Kari Hopper
--- NOTE | 2018-05-09 15:50 | ROOPDOC ---
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 PROCEDURE: Ultrasound guided right internal jugular vein cannulation. Fluoroscopic guided right internal jugular vein 19 cm tip to cuff tunneled central venous catheter insertion. ATTENDING SURGEON: DR. Patito Benito M.D. FIELD RADIO TECHNICIAN: Mary Garcia INDICATION:Patient is an 67-year-old female who has renal failure who requires access for renal replacement therapy. Patient has a left autogenous brachiocephalic arteriovenous fistula which has been difficult to cannulate with resultant large hematoma in the left arm and inability to obtain access for renal replacement therapy via hemodialysis. Patient will undergo ultrasound and fluoroscopic guided placement of a right internal jugular vein tunneled central venous catheter. The procedure was described and explained to the patient in detail including drawing of pictures demonstrating the procedure and anatomy. Risks, benefits and alternative treatment options were discussed with the patient. Alternative treatment options included but were not limited to no intervention. Benefits included but were not limited to access for hemodialysis until permanent access for renal replacement therapy is created. Risks included, but were not limited to infection, bleeding, pneumothorax, hemothorax, cannulation site deep venous thrombosis, possible need for open surgical intervention, allergic reaction or complication from prepping and draping materials, possible need for transfusion of blood products, anesthetic complications, cerebrovascular accident, myocardial infarction, pulmonary embolus, deep venous thrombosis, loss of limb, loss of life, poor satisfaction and poor outcome. Risks of not performing the procedure included but were not limited to inability to obtain renal replacement therapy via hemodialysis and . The patient's questions were answered. The patient voices understanding of these risks, benefits and alternative treatment options. The patient voices acceptance of the risks associated with the procedure and agrees to proceed with an ultrasound and fluoroscopic guided right internal jugular vein tunneled central venous catheter insertion. There were no promises or guarantees made to the patient regarding the outcome or results of the procedure. ANESTHESIA: Local with 20 mL of 2% lidocaine mixed with 0.5% Marcaine. EBL: 20 ml. IVF: 200 ml. FLUORO TIME: 1.1 minutes. CONTRAST: None. COMPLICATIONS: None. DRAINS: None. SPECIMENS: None. IMPLANTS: Right internal jugular vein tunneled central venous catheter with use of a 19 cm tip to cuff [place] hemodialysis catheter. DESCRIPTION OF PROCEDURE: Patient was taken to the angiography suite, placed supine on the angiography room table and then prepped and draped in a standard surgical fashion. A timeout was conducted by myself and the team members in the room confirming the correct patient, procedure and laterality. Ultrasound guidance was used to cannulate the right internal jugular vein using a micropuncture needle after anesthetizing the overlying skin and subcutaneous tissue with 2% lidocaine. The cannulation of the right internal jugular vein was performed with real-time concurrent visualization of the entry of the micropuncture needle into the right internal jugular vein with a hardcopy image preserved. The ultrasound showed the right internal jugular vein to be widely patent, easily compressible and free of thrombus. The micropuncture wire was advanced through the micropuncture needle which was upsized to a micropuncture sheath. An Amplatz wire was advanced through the micropuncture sheath which was then used to sequentially dilate the right internal jugular vein under fluoroscopic guidance. An introducer sheath was then placed over the Amplatz wire and the wire was removed. The catheter was tunneled through a puncture wound in the right chest after anesthetizing the overlying skin and subcutaneous tissue with 2% lidocaine and brought out through a puncture wound at the right internal jugular vein entry site. The catheter was then advanced through the introducer sheath which had been positioned under fluoroscopic guidance. The catheter was positioned under fluoroscopic guidance with the tip in the superior vena cava right atrial junction. Both ports of the catheter were aspirated, noted to aspirate easily and then flushed with heparinized saline. The catheter was secured to the right anterior chest wall using #2-0 Prolene suture after anesthetizing the overlying skin and subcutaneous tissue with 2% lidocaine. The puncture wound in the right neck was closed using #4-0 Monocryl in inverted interrupted fashion. Dressings were applied. The patient tolerated the procedure well. All instrument, sponge and needle counts were correct at the end of the case. There were no complications. Dr. Benito was present for and directed the entire case. Patient was transferred to the recovery area and subsequently to the ICU in critical condition. The tunneled central venous catheter is stable for use for hemodialysis access. RADIOLOGIC SUPERVISION AND INTERPRETATION: The initial ultrasound showed the right internal jugular vein to be easily compressible, widely patent and free of thrombus. Ultrasound was used to guide cannulation of the right internal jugular vein with real-time concurrent visualization of the entry of the needle into the right internal jugular vein with a hardcopy image preserved. Fluoroscopic guidance was then used to sequentially dilate the right internal jugular vein, place and introducer sheath and position the catheter with the tip in the superior vena cava/right atrial junction. Final fluoroscopic image showed the catheter to be in good position and good alignment with no pneumo- or hemothorax noted with the tip in the superior vena cava/right atrial junction. The tunneled central venous catheter is stable for use for hemodialysis access. Craig Benito MD May 09, 2018 15:50
--- NOTE | 2018-05-09 16:23 | HPE ---
DATE OF ADMISSION: 05/09/2017 CRITICAL CARE TIME: As mentioned on the H and P by the resident, Dr. Pal. I was called urgently by Dr. Benito to see a patient who went into complete AV block and then bradycardia. He had been placing a dialysis catheter. On my arrival to the floor, there was no evidence of pneumothorax. Patient was not hypoxic. She had a blood pressure but she was having left sided chest discomfort. Heart rate at that time was 35-40. She had already been transferred to a stretcher. Before moving her, I asked to give 1 gram of calcium gluconate, which was given out of the code cart. I was assured that pacer pads were in place and she was being monitored. I could see her monitor. She was able to talk. She was not tachypneic. She had oxygen in place. There were no obvious signs of hemorrhage. I therefore walked with them as she is being transferred to the intensive care unit (ICU), She did have nausea and bradycardia down to 20 in the elevator. I went to transcutaneously pace and found that the electrodes were not attached. I therefore could not synchronize pacing. Patient was then urgently brought into the ICU, placed on monitoring and by that time had converted to a sinus rhythm with a heart rate of 75. Electrodes were placed. Electrocardiogram was performed showing no ST elevation but a chronic left bundle branch block. There was some strain in ST depression in lead 6 that appeared slightly different from prior electrocardiogram. Troponin, cardiac enzymes were ordered. Blood pressure was 130 and as soon as her heart rate went up her anginal symptoms stopped. She currently denies chest discomfort. She is short of breath with the supine position but has 100% oxygen on 2 liters. Therefore, this patient with bradycardia was transient likely secondary to procedure with possible vagal episode, possible electrical disturbance in the face of electrolyte abnormalities with chronic kidney disease. Patient's potassium is 5.0. No evidence of acidemia on blood gas. Nephrology advised of her admission and they will consider whether or not dialysis is necessary. At this point in time, I do not have an acute indication for dialysis. Patient's blood sugar was checked after this episode on arrival to the ICU. Blood sugar was 65. We will continue to monitor for hypoglycemia and hold hypoglycemic medications. She will be on sliding scale insulin. Patient was assessed by myself and resident. We reviewed history and physical. I personally performed critical care at her bedside for an hour and a half, and this excludes all procedures. I agree with the history and physical as outlined above by Dr. Pal.
--- NOTE | 2018-05-09 16:39 | HPE ---
DATE OF ADMISSION: 05/09/2018 HISTORY OF PRESENT ILLNESS: Patient is a 67-year-old female who presented today for a PermaCath placement per Dr. Benito. She was undergoing her procedure when it was noticed that she developed some chest pain, as well as shortness of breath. The patient was found to be in a complete heart block at the time. Dr. Benito had contacted the courseware developer, stating that the patient was in heart block. She had pacers connected; however, she was never paced. Upon arrival in the angiogram suite, the patient was given 1 gram of calcium gluconate. She remained somewhat short of breath. The patient was transferred to the intensive care unit (ICU). Her vitals remained stable. The patient was awake and alert and had stated that she had previously been evaluated for end-stage renal disease and had received dialysis approximately two weeks ago. She had received a fistula in her left arm. She went to receive dialysis on 04/28/2018. At that time, her fistula was found to be occluded. They had attempted to do dialysis again yesterday, however, unsuccessful and she had her PermaCath placement today. The patient states that in the past, she has had chest pain and admits to a history of an myocardial infarction (SC) in which she was sent to [facility] in 2013 for a stent placement. She states that she does get short of breath with ambulation. She does get chest pains at times. She states that the chest pain that she had in the angiogram suite today was similar to the chest pain that she experienced during her first SC. She stated that the pain was located in the left side of her chest. She denies it radiating anywhere. She did admit to some nausea and she did admit to some feelings of flushness and dizziness when this chest pain came on. She stated the chest pain lasted approximately 20 minutes and when it resolved, so did the shortness of breath. The patient also admits to multiple episodes of hypoglycemia requiring hospitalization. She states she has had diabetes mellitus and she frequently bottoms out with her sugars and will fall over. PAST MEDICAL HISTORY: 1. History of myocardial infarction status post the stent placement 2013. 2. End-stage renal disease requiring hemodialysis. 3. Obstructive sleep apnea. 4. Asthma. 5. Diabetes mellitus, on insulin. 6. Hypothyroidism. 7. Hypertension. 8. Hypercholesterolemia. 9. Restrictive ventilatory impairment. PAST SURGICAL HISTORY: 1. Appendectomy. 2. Heart catheterization and stent placement 2013. 3. Right ankle fracture repair. CURRENT MEDICATIONS: - Symbicort 160/4.5 mcg two puffs twice a day - Ventolin HFA 108 two puffs daily as needed - Lasix 40 mg once a day - Synthroid 100 mcg daily - Nitrostat 0.4 mg as needed - metoprolol 50 mg twice a day - omeprazole 20 mg once daily - lisinopril 10 mg daily - continuous positive airway pressure (C-PAP) - vitamin D 1000 units - glucose 46 units - Flovent - saline nasal spray - aspirin 81 mg - Trulicity 0.75 mg - atorvastatin 40 mg daily - hydrochlorothiazide 25 mg - iron 325 mg - calcitriol 0.25 mcg - Humalog Kwikpen - Tresiba Flextouch ALLERGIES: MACROBID, KEFLEX, TRAMADOL, LATEX, BACTRIM, and TEQUIN. FAMILY HISTORY: Noncontributory. SOCIAL HISTORY: Patient lives at home with her daughter. 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 She denies any history of smoking. She denies any alcohol use. She denies any history of intravenous drug use. REVIEW OF SYSTEMS: RESPIRATORY: Patient complains of shortness of breath. She denies any cough. She denies any sputum production. She denies any hemoptysis. CARDIOVASCULAR: Patient complains of left-sided chest pain that lasts approximately 20 minutes associated with shortness of breath and diaphoresis. GASTROINTESTINAL: The patient complains of nausea or vomiting. Otherwise, review of systems negative. PHYSICAL EXAMINATION: VITAL SIGNS: Temperature 98.4, pulse 74, respiratory rate 18, blood pressure 139/90, mean arterial pressure (MAP) 106, pulse oximetry 95% on room air. GENERAL: Patient is awake, alert and oriented. She appears in mild distress, and she is not using accessory muscles. HEENT: Atraumatic, normocephalic. Eyes are nonicteric. Trachea is midline. Tongue is midline. CARDIOVASCULAR: Slightly distant heart sound with normal S1, S2. Regular rate and rhythm. No clicks, rubs or murmurs noted on examination. Slight jugular venous distention PULMONARY: Patient is currently on room air. She has clear vesicular lung sounds bilaterally. There are no wheezes, rhonchi or rales noted. Good respiratory effort. No wheezing or crackles. GASTROINTESTINAL: Abdomen is soft, nondistended, nontender to palpation in all four quadrants. No rebound tenderness or guarding. Positive bowel sounds. No rashes or lesions. No hernias. SKIN: No rashes or lesions noted on examination. EXTREMITIES: No edema. Pulses are full and equal on bilateral upper and lower extremities. NEUROLOGICAL: No focal neurological deficits noted on examination. ASSESSMENT: 1. Symptomatic bradycardia. Patient experienced an episode of symptomatic bradycardia. There is a rhythm strips demonstrating a moment of asystole. Patient was given atropine in the angiogram suite as well as a 1 gram of calcium gluconate. It appears this is likely physiologic, as she went into this bradycardia when she had the wire advanced; however, she also has end-stage renal disease and has not received dialysis. This could be secondary to metabolic derangement. The patient had tracer pads placed; however, was not transcutaneous paced. She was transferred to the ICU, where she has been monitored. Currently, she is in sinus rhythm. She has her metoprolol on hold. Cardiology consult has been placed. We will continue to monitor. 2. Ischemia, likely secondary to hypertension. As stated above, patient went into symptomatic bradycardia and experienced episode of hypotension. She did complain of left-sided chest pain that she described as similar to her previous chest pain when she had a myocardial infarction in 2013. Currently, she has received aspirin, atorvastatin which she takes daily. Her metoprolol has been held today due to her bradycardia. She has a stat echocardiogram ordered; however, the results are still pending. Cardiology has been consulted for evaluation. Cardiac marker panel revealed a troponin of 0.02. Will continue to trend. At this time, her vitals remained with good pressures. 3. History of hypertension and myocardial infarction. Will continue her atorvastatin and her aspirin 81 mg. Her metoprolol has been placed on hold due to episode of bradycardia and heart block. Will hold her lisinopril and her hydrochlorothiazide as well. Will monitor blood pressures. 4. Asthma. Patient will be continued on Symbicort and DuoNebs. Currently, she is saturating at 100% on room air. Will continue to monitor. 5. Leukocytosis. Patient's leukocytosis is likely reactive to her episode of symptomatic bradycardia. Will continue to monitor. She remains afebrile. No indication of infection. 6. Diabetes mellitus type 2 with history of hypoglycemia. Patient has a history of diabetes mellitus type 2. She is on insulin at home. She reports that she has multiple episodes of hypoglycemia and when then she bottoms out. A blood glucose level was drawn in the ICU. Her blood glucose was 65. She was given glucose tablets. We will continue to monitor. She is on every 6 hours sliding scale. 7. Anemia. Patient was found to be anemic on laboratory examination, with a hemoglobin of 9.2. This is likely chronic and secondary to her end-stage renal disease. Will continue to monitor for in-trend. 8. Hypothyroid. Patient's has a history of hypothyroidism. She is currently on Synthroid. A TSH was ordered due to her episode of bradycardia. Results are pending. 9. Gastrointestinal (GI) prophylaxis. Patient will be continued on omeprazole 20 mg. 10. Deep venous thrombosis (DVT) prophylaxis. Patient is receiving heparin every 8 hours subcutaneous. Critical Care Time 1hr 30 min My faculty preceptor for this patient encounter was physically present during the encounter and was fully available. All aspects of the patient interview, examination, medical decision-making process, and medical care plan development were reviewed and approved by the faculty preceptor. The faculty preceptor is aware and concurs with the plan as stated in the body of this note and will attest to such by his/her co-signature. ERMA
[2018-05-09] MEDS: HumaLOG INSULIN (NovoLOG) PER UNIT SC SCH ×2 (16:43→20:40)
[2018-05-09 18:28] LABS: MB/CK RELATIVE INDEX 1.57 (< OR =4); TROPONIN I 0.11 NG/ML (< 0.10)
[2018-05-09] MEDS: SYMBICORT 160/4.5MCG INHALER 6GM INH SCH (19:15)
[2018-05-09] MEDS: ATORVASTATIN 20 MG TAB PO SCH (20:39)
--- NOTE | 2018-05-09 21:20 | ECHO ---
DATE OF PROCEDURE: 05/09/2018 REFERRING PHYSICIAN: Dr. Elvis Pal. INDICATION: Chest pain, unspecified. HEIGHT: 142 cm. WEIGHT: 98.4 kg. 2D MEASUREMENTS: Left atrium: 3.5 cm Left atrial volume index: 30 Left ventricle diastole: 3.7 cm Ventricular septum: 1.28 cm Posterior wall: 1.30 cm Aortic root: 3.1 cm Aortic annulus: 1.8 cm Inferior vena cava: 1.6 cm with more than 50% respiratory variation. DOPPLER MEASUREMENTS: Aortic valve velocity: 168 cm/s LVOT velocity: 124 cm/s LVOT VTI: 27.4 cm Mitral E velocity: 75.2 cm/s Mitral A velocity: 98.0 cm/s Mitral deceleration time: 304 ms Mild tricuspid regurgitation. Estimated right ventricle systolic pressure: 28-33 mmHg assuming a right atrial pressure of 5-10 mmHg. Pulmonary artery systolic pressure: 33 mmHg by pulmonary acceleration method. MITRAL ANNULAR TISSUE DOPPLER: E prime septal: 4.9 cm/s E prime lateral: 5.55 cm/s DESCRIPTION: Rhythm was sinus with left bundle branch block. Image quality was adequate. This was a 2D, M-mode, color flow Doppler and pulse wave Doppler examination and included mitral annular tissue Doppler. CONCLUSIONS: 1. Mild concentric left ventricle hypertrophy. Normal regional left ventricular (LV) wall motion and wall thickening. No paradoxical septal motion apparent. Normal LV systolic function. Left ventricular ejection fraction (LVEF) 70% by visual estimate. Grade 1 LV diastolic dysfunction (impaired relaxation filling pattern). 2. Mild left atrial dilatation by left atrial volume index. 3. Tiny pericardial effusion seen over the posterior wall of the left ventricle. 4. Mild aortic valve sclerosis of a 3-cusp aortic valve. No aortic regurgitation. 5. Suggestive of mild elevation of pulmonary artery systolic pressure. 6. Otherwise normal appearing echocardiogram Doppler findings.
[2018-05-10] VITALS: BP 139/64
[2018-05-10 02:22] LABS: MB/CK RELATIVE INDEX 1.13 (< OR =4); TROPONIN I 0.05 NG/ML (< 0.10)
[2018-05-10 04:00] VITALS: BP 139/63
[2018-05-10 04:46] LABS: HEMATOCRIT 24.6 % (36.0-47.0); HEMOGLOBIN 7.8 g/dl (12.0-15.5); MEAN CORPUSCULAR HGB CONC 31.7 g/dl (32.0-36.5); MEAN CORPUSCULAR VOLUME 91.4 fl (80.0-96.0); PLATELET COUNT, AUTOMATED 278 10^3/uL (150-450); RED BLOOD COUNT 2.69 10^6/uL (4.00-5.40)
[2018-05-10] MEDS ORDERED: LEVOTHYROXINE 112MCG TABLET (0.112MG) PO SCH ×2 (06:00→10:57)
[2018-05-10] MEDS: HEPARIN SOD (PORCINE) 5000 UNITS/ML VIAL SQ SCH ×3 (06:08→21:27)
[2018-05-10 07:00] VITALS: BP 146/64
[2018-05-10] MEDS: HumaLOG INSULIN (NovoLOG) PER UNIT SC SCH ×4 (07:20→20:12)
[2018-05-10] MEDS: ASPIRIN 325 MG TAB PO SCH (08:29)
[2018-05-10] MEDS: VITAMIN D 1,000 INTERNATIONAL UNITS TABLET PO SCH (08:29)
[2018-05-10] MEDS: OMEPRAZOLE 20 MG CAP PO SCH (08:29)
[2018-05-10] MEDS: SYMBICORT 160/4.5MCG INHALER 6GM INH SCH ×2 (09:00→21:14)
[2018-05-10 10:13] LABS: CALCIUM LEVEL 8.2 MG/DL (8.8-10.2); CREATININE FOR GFR 3.88 MG/DL (0.55-1.30); GLOMERULAR FILTRATION RATE 12.3 (>45); MB/CK RELATIVE INDEX 1.13 (< OR =4); POTASSIUM SERUM 4.7 MEQ/L (3.5-5.1); TROPONIN I 0.02 NG/ML (< 0.10)
--- NOTE | 2018-05-10 10:35 | CCN ---
DATE: 05/10/2018 This is an addendum to the note already dictated by Dr. Pal. I, Dr. Rao Nelson, independently examined Barbie Duran. She is doing well off oxygen. No oxygen desaturation. No further bradycardia since yesterdays episode. She is anemic this morning. Because of her transient ischemia during the time of bradycardia, we have elected to transfuse her. This was felt to be best done while she is receiving dialysis. We will therefore have her stay for another day. She has not been significantly hyperglycemic despite holding her medications. She has frequent hypoglycemic episodes at home. This will likely need to be readjusted over time. There is a possibility that with the development of renal failure that she may not need as much hyperglycemic control. The plan for her cardiac is to have her have an event recorder at home. I believe this was a transient event due to the wire placement during the time of the catheter, which is a known phenomenon. However, Dr. Burton plans on following the patient to ensure no underlying arrhythmias that would require intervention. The patient is now considered to be able to be transferred to the floor, therefore we will transfer to the hospitalist service.
[2018-05-10] MEDS: LEVOTHYROXINE 112MCG TABLET (0.112MG) PO SCH (11:33)
[2018-05-10] MEDS: TORSEMIDE 20 MG TAB PO SCH (11:33)
--- NOTE | 2018-05-10 14:22 | CR ---
DATE OF CONSULTATION: 05/10/2018 REQUESTING PROVIDER: Dr. Seaman REASON FOR CONSULTATION: To assist in the management of end-stage renal disease. HISTORY OF PRESENT ILLNESS: Mrs. Duran is a 67-year-old female who was admitted to [facility] yesterday when she developed severe bradycardia with AV fabien block during the procedure for Perma-Cath placement. She recently started dialysis via left upper arm AV fistula and developed significant infiltration, due to which her fistula is not usable. She had a Perma-Cath placed yesterday for temporary use; however, developed severe bradycardia with fabien block, due to which she was admitted to intensive care unit for observation and possible consideration for a pacemaker placement. She was seen by Dr. Burton who did not feel that a pacemaker was indicated. In any event, the patient has not been dialyzed all week due to lack of a functioning access and nephrology consultation was requested due to the need for dialysis. The patient has complained of dyspnea on exertion and also has developed worsening anemia. Nephrology consultation was requested this morning as the patient needs dialysis. PAST MEDICAL AND SURGICAL HISTORY: Significant for: 1. End-stage renal disease, recently started dialysis. 2. Type 2 diabetes. 3. Obstructive sleep apnea. 4. History of asthma. 5. Hypertension. 6. Hypercholesterolemia. 7. Morbid obesity. 8. History of coronary artery disease with prior myocardial infarction, angioplasty and stent placement in 2013. Past surgical history is significant for: 1. Appendectomy. 2. Cardiac catheterization with stent placement. 3. Right ankle fracture. 4. Left arm AV fistula creation and Perma-Cath placement yesterday in her right internal jugular vein. MEDICATIONS: Home medications include: - Symbicort - Ventolin - Lasix - Synthroid - Nitrostat - metoprolol - omeprazole - lisinopril - vitamin D - Flovent inhaler - aspirin 81 mg daily - Trulicity - atorvastatin - hydrochlorothiazide, - ferrous sulfate - calcitriol - Humalog - Tresiba ALLERGIES: She has multiple allergies including: LATEX, BACTRIM, TEQUIN, TRAMADOL, KEFLEX, MACROBID. FAMILY HISTORY: Negative for end-stage renal disease. PERSONAL AND SOCIAL HISTORY: The patient lives at home with her daughter. 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 She denies any tobacco or alcohol use. REVIEW OF SYSTEMS: She is generally feeling weak but denies any fever or chills. Ears, nose and throat are unremarkable. Cardiovascular system significant for dyspnea on exertion. She denies any chest pain at present. She had AV block and bradycardia yesterday, which resolved spontaneously. She did have a new Perma-Cath placed. Respiratory system significant for asthma and obstructive sleep apnea. She denies any hemoptysis or pleuritic type of chest pain. Gastrointestinal system is negative for nausea, vomiting or diarrhea. Genitourinary system is negative for dysuria or hematuria. Endocrine system is significant for type 2 diabetes, hypothyroidism and secondary hyperparathyroidism. Neurological system is negative for seizures or stroke. Musculoskeletal system significant for chronic degenerative arthritis. Psychosocial system negative for depression or anxiety. Hematological system is significant for significant anemia with hemoglobin down to 7.8 and hematocrit 24.6 today. PHYSICAL EXAMINATION: The patient is seen in intensive care unit this morning while she is sitting in the chair. Her temperature is 97.6 degrees Fahrenheit, heart rate 76 per minute and respiratory rate 18 per minute. Blood pressure 146/64 mmHg and oxygen saturation 91% on room air. Head is atraumatic. Neck is supple and jugular venous distention (JVD) is probably mildly elevated while she is she is sitting upright. She has a right-sided internal jugular vein Perma-Cath in place. Heart sounds are regular at present and lungs with diminished breath sounds and a few basilar rales. Abdomen is obese, soft and nontender. Bowel sounds are present. Extremities are without cyanosis or clubbing. Left arm AV fistula is patent; however, she has massive ecchymosis and hematoma on her left arm. Neurologically, she is awake, alert and oriented times three. Today's labs show sodium 141, potassium 4.7, CO2 23, BUN 71 and creatinine 3.88. Calcium 8.2 and glucose 175. Yesterday her hemoglobin was 9.2 and hematocrit 31. Today, her hemoglobin is 7.8 and hematocrit 24.6. PROBLEMS: 1. End-stage renal disease. The patient had problems with her left arm AV fistula due to which dialysis was not possible and she underwent a Perma-Cath placement yesterday. We will dialyze here this afternoon. 2. Anemia. She most likely has acute blood loss anemia and will be transfused 2 units of packed red blood cells during dialysis. 3. Congestive heart failure. The patient has decompensated volume status with dyspnea on exertion. We will try to remove at least 2 liters of fluid with dialysis today and see how she tolerates. 4. Bradycardia and AV block. This was transient and related to guidewire and catheter placement, which resolved shortly after the incident. She has remained in sinus rhythm since then. At this point, I think she can be transferred out of ICU and we will dialyze her in the room. Thank you for involving me in the care of Ms. Duran. I will follow her along with you.
--- NOTE | 2018-05-10 14:53 | CR ---
DATE OF CONSULTATION: 05/09/2018 REFERRING PHYSICIAN: Dr. Craig Benito REASON FOR CONSULTATION: Complete heart block. HISTORY OF PRESENT ILLNESS: Barbie Duran is a pleasant 67-year-old woman with morbid obesity, diabetes on insulin, chronic kidney disease stage IV, status post left upper extremity hemodialysis arteriovenous (AV) fistula, chronic left bundle branch block, systemic hypertension, coronary artery disease status post percutaneous coronary stenting in 2013, and dyslipidemia. Earlier today during the insertion of a dual lumen dialysis catheter via the right internal jugular vein at the point that the guidewire had been placed into the vein she developed episodes of nonsustained ventricular tachycardia and complete heart block. The ventricular tachycardia resolved with pulling back on the guidewire and the complete heart block persisted longer than that but resolved on its own. She was not symptomatic during complete heart block. A rhythm strip acquired 05/09/2018 at 1024 hours shows underlying sinus rhythm with a complete heart block with heart rate of 33 beats per minute at which time she was hemodynamically stable with regards to blood pressure and she was having some chest pain. The patient estimates that she has had six episodes of loss of consciousness since coronary stenting in 2013 and attributes these to low blood sugar attacks. She reports infrequent episodes of a localized sharp stabbing pain unrelated to exertion along the mid lower left anterior chest. She had anterior chest pain during the dialysis catheter insertion procedure today. This has resolved. She reports chronic stable exertional dyspnea that occurs with ordinary activities of daily living. No orthopnea or paroxysmal nocturnal dyspnea (PND). No leg or ankle swelling. No embolic events, transient ischemic attacks (TIAs) or strokes. No palpitations. No claudication symptoms. ADVERSE DRUG REACTIONS: CEPHALEXIN (dyspnea), GATIFLOXACIN (rash, dyspnea), TRAMADOL (rash, dyspnea), NITROFURANTOIN (rash), LATEX, SULFAMETHOXAZOLE (renal dysfunction), TRIMETHOPRIM (renal dysfunction). MEDICATIONS PRIOR TO ADMISSION: - acetaminophen 500 mg times two tablets four times a day as needed - Ventolin 2 puffs four times a day as needed - aspirin 81 mg daily - atorvastatin 40 mg at bedtime - azelastine 0.15% nasal spray twice a day - Symbicort 2 puffs twice a day - calcitriol 0.5 mg fives times per week (Tuesday through Tuesday) - calcitriol 0.25 mg twice a week (Saturdays and Sundays) - vitamin D3 1000 units by mouth daily - glucose 4 grams by mouth as needed for blood sugars less than 50 - Humalog mix 75/25 - 20 units subcutaneous three times a day - iron 325 mg daily - levothyroxine 112 mcg daily - metoprolol succinate 50 mg twice a day - nitroglycerin 0.4 mg sublingual every 5 minutes as needed for chest pain - omeprazole 20 mg daily - torsemide 40 mg daily - Tresiba 94 units subcutaneous daily - Trulicity 1.5 mg subcutaneous once a week on Fridays CURRENT MEDICATIONS IN HOSPITAL: The patient's current medications in the hospital are as follows: - aspirin 325 mg daily - atorvastatin 40 mg at bedtime - Symbicort 2 puffs twice a day - calcitriol 0.25 mg twice a week (Saturdays and Sundays) - heparin 5000 units subcutaneous every 8 hours - Humalog insulin per sliding scale - levothyroxine 100 mcg daily - omeprazole 20 mg daily - vitamin D 1000 units by mouth daily OTHER PAST MEDICAL HISTORY AND PAST SURGICAL HISTORY: Chronic kidney disease (CKD) stage IV. Chronic diastolic heart failure. Coronary artery disease (CAD). Status post coronary stenting in 2013. Type 2 diabetes on insulin. Dyslipidemia. Systemic hypertension. Asthma. Status post left upper extremity arteriovenous (AV) fistula. Carpal tunnel surgery. Appendectomy. Cataract surgeries. Foot surgery. Morbid obesity. FAMILY HISTORY: Noncontributory at the patient's current age. SOCIAL HISTORY: Nonsmoker. No alcohol. REVIEW OF SYSTEMS: Status post bilateral cataract extractions. Glaucoma. Tonsillectomy. Vertigo. Headaches. Reports heart attacks in 1998 and 2014. Prior pleural effusion. Sleep apnea on continuous positive airway pressure (CPAP) with oxygen 2 liters per minute by nasal cannula. Hiatal hernia. Diverticulosis. section () times one, prior dilation and curettage (D and C). Urinary incontinence. Herniated neck disc. Arthritis is both knees and hands. A left foot fracture status post surgical repair. Bilateral carpal tunnel release. Prior back injury. Chronic back pain. Generalized muscle weakness. Iron deficiency anemia. No anxiety, panic attacks or depression. All other 10-point review of systems questions negative. PHYSICAL EXAMINATION: A pleasant, morbidly obese woman who appears her chronological age was not in any respiratory or psychological distress. Height 56 inches, weight 87.9 kg. Body mass index (BMI) 43.4. Temperature 98.4, pulse 75 (regular), respiratory rate 18, blood pressure 139/65, 02 saturation 100%. No conjunctival pallor, scleral icterus or xanthelasma. Oral mucosa is moist without pallor or cyanosis. Jugular venous pulsations were at 3 cm. Bandages over the right carotid region status post tunneled dialysis catheter in situ right pectoral region. Trachea midline. No palpable thyroid. No clubbing, nail bed cyanosis, or splinter hemorrhages. No skin lesions, skin pallor or icterus other than ecchymosis of right upper extremity. Oriented to person, place and time. Mood and affect normal. Curvature of the spine normal. Gait not tested as the patient is on bedrest. Gross motor, strength and tone normal. No vesiculations, abnormal movements or atrophy. Respiratory expansion effort was good. No crackles or wheezes. No palpable apex beat. No parasternal heaves, thrills, or palpable heart sounds. First and second heart sound normal. No S3 or S4. No murmurs. Carotids are normal in volume and contour and without bruits. No palpable abdominal aorta but difficult to palpate due to abdominal obesity. Femoral pulses normal. Pedal pulses normal. No peripheral edema. Abdomen was obese, soft, nontender with normal bowel sounds. Liver span difficult to assess due to abdominal obesity. No hepatosplenomegaly or other organomegaly. Stool for occult blood not presently indicated. INVESTIGATIONS: An echocardiogram 03/26/2017 on this patient at [facility] reported normal left ventricular (LV) size and sytolic function, left ventricular function (LVF) of 70% by visual estimate. No regional wall motion abnormalities of the left ventricle. Normal LV diastolic function. Mild elevation of estimated right ventricular systolic pressure. Left pleural effusion. No pericardial effusion. Mild mitral annular calcification with very mild mitral regurgitation. Mild aortic valve sclerosis of a three-cuspid aortic valve. Very mild aortic regurgitation. Moderately technically difficult echocardiogram. Electrocardiogram on 05/09/2018 at 1050 hours shows sinus rhythm with normal WI interval. Left bundle branch block. LABORATORY WORK 05/09/2018 was reviewed: White blood cell (WBC) 13.5, hemoglobin 9.2, hematocrit 30.0, platelets 352, PT/ INR 1.11. Sodium 143, potassium 5.1, chloride 111, CO2 24, BUN 69, creatinine 3.49, estimated glomerular filtration rate (GFR) of 13.9, glucose 92, calcium 8.2, phosphorus 5.4, bilirubin 0.5, AST 19, ALT 20, alkaline phosphatase 96, lactate dehydrogenase (LDH) 212, creatine phosphokinase (CPK) 134, CPK-MB 3.0, troponin I is 0.02. Total protein 6.2, albumin 2.8. Triglycerides 81, cholesterol 134. Thyroid-stimulating hormone (TSH) 4.049. Free T4 1.27. ASSESSMENT AND RECOMMENDATIONS: 1. Transient complete heart block. This patient's transient complete heart block occurred in the setting of a guidewire that was in the right ventricle enough to cause transient runs of ventricular ectopy which resolved with pulling back the wire. She has pre-existing left bundle branch block. I believe that the patient's transient complete heart block was most likely secondary to the guidewire inducing transient right bundle branch block in a patient with pre-existing left bundle branch block resulting in the transient third-degree arteriovenous (AV) block. This has resolved. At this point I recommend discontinuation of beta nanyc from the patient's regimen both in hospital and skilled nursing. My plan is to bring her back to my office and arrange for her to have an outpatient 30-day event monitor for further evaluation. 2. Coronary artery disease (CAD) ([place] vessel). The patient reports a remote history of prior heart attacks and percutaneous coronary intervention (PCI) in 2013. She has not been having any anginal type pain other than some chest discomfort this morning during her procedure. The plan will be to reassess her coronary prognosis with a cardiac nuclear stress test. Her electrocardiogram (ECG) shows left bundle branch block. One set of cardiac enzymes today was negative. My plan is to discontinue the patient's beta-nancy. She is maintained on aspirin and atorvastatin. OLIVIA inhibitor or angiotensin receptor nancy (ARB) are not good options for her in the setting of approaching end-stage kidney disease for which she is getting ready to be put on dialysis. 3. Status post percutaneous coronary intervention. As per CAD category above. 4. Dyslipidemia. Lipid values as above indicate control. Continue her usual dose of statin therapy. 5. Systemic hypertension. Blood pressures in hospital are adequately controlled at present. As mentioned, my plan is to take her off of beta-nancy. 6. Left bundle branch block. This is known to be chronic. As mentioned above, the plan will be to get an outpatient 30-day event monitor following her discharge from hospital. 7. A history of intermittent loss of consciousness over the past five years that she attributes to low blood sugar attacks. The plan will be to get a 30-day event monitor on her. 8. Precordial chest pain today during her dialysis catheter placement. Cardiac enzymes negative so far. The plan will be to assess her coronary prognosis with an inpatient cardiac nuclear stress test. Thank you kindly for asking me to participate in the cardiac care of Barbie Duran. Edited 05/10/2018 @ 1453 [facility]
[2018-05-10 16:40] VITALS: BP 165/74
--- NOTE | 2018-05-10 18:12 | CCN ---
DATE: 05/10/2018 CRITICAL CARE PROGRESS NOTE: SUBJECTIVE: The patient was seen and examined this morning. She currently has no complaints. She denies any chest pain. She denies any lightheadedness. She denies any shortness of breath. She states that she has an appetite and feels quite well. She stated that since the episode yesterday she has had no change in her symptoms. The patient has been monitored overnight. She has had no episodes of bradycardia. Of note, she has not received any of her insulin and she has been on a consistent-carbohydrate diet with fairly adequate glycemic control. The patient has been stable and will likely be transferred to medical/surgical floor. She has not received dialysis since arriving and will likely receive dialysis before her discharge from the hospital. OBJECTIVE: VITAL SIGNS: Temperature 97.6, pulse 64, respiratory rate 18, blood pressure 146/64 with a mean arterial pressure of 91, pulse oximetry 91% on room air. GENERAL: The patient is awake, alert, and oriented. She appears in no acute distress. She is sitting up comfortably in her chair. She is conversive. HEENT: Trachea is midline. Eyes are anicteric. Normocephalic, atraumatic. No jugular venous distention (JVD). CARDIOVASCULAR: Regular rate and rhythm. Normal S1, S2. No clicks, rubs or murmurs noted on examination. No JVD. No carotid bruits. RESPIRATORY: Clear vesicular lung sounds bilaterally with mild bibasilar crackles. Good respiratory effort. No wheezes, rhonchi or rales noted on examination. The patient is on room air and saturating at 91%. ABDOMINAL: Soft, nondistended, nontender to palpation in all four quadrants. No rebound tenderness or guarding. Positive bowel sounds throughout. EXTREMITIES: Pulses are full and equal in bilateral upper and lower extremities. No edema. NEUROLOGICAL: No focal neurological deficits noted on examination. PSYCHIATRIC: Mood and affect appear appropriate. LABORATORY DATA: Hematology: White blood cell count 9.0, hemoglobin 7.8, hematocrit 24.6, and platelet count 278. Chemistries: Sodium 141, potassium 4.7, chloride 110, carbon dioxide 23, BUN 71, creatinine 3.88, fasting glucose 175. Cardiac troponins 0.02 today. ASSESSMENT AND PLAN: 1. Anemia: The patient was found to be anemic today with a hemoglobin of 7.8. She did have a procedure yesterday and there was some bleeding. The patient did have an ischemic event with a bump in her troponin to 0.11 yesterday. She was continued on aspirin. Given her history of myocardial infarction (ND) in the past, we will transfuse two units of blood. The patient is to receive hemodialysis with her blood transfusion today. The patient has been type and screened. 2. Renal failure: The patient has a diagnosis of end-stage renal disease. She has recently had a fistula in her left arm. However, that failed due to thrombosis. She was in yesterday for a PermaCath placement and she had an episode of symptomatic bradycardia resulting incomplete heart block. She has since been stable and has still not received dialysis. Nephrology was consulted and has evaluated the patient. They will resume with dialysis today with the patient's blood transfusion. The patient will likely be discharged tomorrow. 3. Symptomatic bradycardia. The patient an episode of symptomatic bradycardia yesterday during her procedure. She has been in sinus rhythm with an appropriate rate since yesterday. She has been evaluated by cardiology who performed an echocardiogram which demonstrated a mild concentric left ventricular hypertrophy with normal regional left ventricular wall motion and wall thickening. No paradoxical septal motion was apparent. Left ventricular ejection fraction was 70% and a grade 1 left ventricular diastolic dysfunction. She had mild atrial dilation by left atrial volume index and a tiny pericardial effusion seen at the posterior wall of the left ventricle. The patient's metoprolol has been placed on hold. She will likely not be continued on this medication upon discharge. She will likely to have followup with Dr. Burton of cardiology. Dr. Burton of cardiology suggested a Holter monitor or 30-day event monitor upon discharge from the hospital. 4. History of hypoglycemia in the setting of type 2 diabetes mellitus. The patient has been on three medications including insulin, Tresiba, and Trulicity for her diabetes. She states that she frequently bottoms out and has at one point fallen and broken her arm. In the hospital, she has been on a consistent-carbohydrate diet and her glucose has been consistently low enough where she has not been receiving sliding scale. She will likely need to stop these medications upon discharge and followup with her primary care physician of her type 2 diabetes and episodes of hypoglycemia. 5. History of hypertension and myocardial infarction in 2013: The patient has a history of hypertension and her metoprolol is on hold. Her blood pressure is adequate. She is continued on atorvastatin and aspirin full dose due to her recent ischemic episode. 6. Asthma. The patient has a history of asthma. She is continued on Symbicort. She has no complaints and there is no wheezing on examination. 7. Leukocytosis. The patient had leukocytosis yesterday that was likely reactive to her ischemic event. This leukocytosis has resolved. 8. Hypothyroidism. The patient is currently on Synthroid. 9. Gastrointestinal (GI) prophylaxis. The patient is on omeprazole and we will continue. 10. Deep vein thrombosis (DVT) prophylaxis. The patient is receiving heparin subcutaneous. DISPOSITION: The patient will be transferred to the medical/surgical floor and transferred to hospitalist service for further management. She will likely be discharged tomorrow following her dialysis today. My faculty preceptor for this patient encounter was physically present during the encounter and was fully available. All aspects of the patient interview, examination, medical decision making process, and medical care plan development were reviewed and approved by the faculty preceptor. The faculty preceptor is aware and concurs with the plan as stated in the body of this note and will attest to such by his/her co-signature. ERMA
[2018-05-10] MEDS: ATORVASTATIN 20 MG TAB PO SCH (21:27)
[2018-05-10] MEDS ORDERED: ACETAMINOPH W/CODEINE #3 TAB UD PO ONE (21:45)
[2018-05-10 22:00] VITALS: BP 155/72
[2018-05-11] MEDS ORDERED: ONDANSETRON 4 MG TAB (S0181) PO PRN (04:15)
[2018-05-11] MEDS: LEVOTHYROXINE 112MCG TABLET (0.112MG) PO SCH (05:53)
[2018-05-11] MEDS: HEPARIN SOD (PORCINE) 5000 UNITS/ML VIAL SQ SCH (05:53)
[2018-05-11 06:00] VITALS: BP 156/70
[2018-05-11 06:37] LABS: HEMATOCRIT 33.9 % (36.0-47.0); MEAN CORPUSCULAR HEMOGLOBIN 28.7 pg (27.0-33.0); MEAN CORPUSCULAR HGB CONC 32.4 g/dl (32.0-36.5); MEAN CORPUSCULAR VOLUME 88.5 fl (80.0-96.0); PLATELET COUNT, AUTOMATED 246 10^3/uL (150-450); RED BLOOD COUNT 3.83 10^6/uL (4.00-5.40); WHITE BLOOD COUNT 9.1 10^3/uL (4.0-10.0)
[2018-05-11 07:01] LABS: CALCIUM LEVEL 7.7 MG/DL (8.8-10.2); CREATININE FOR GFR 2.58 MG/DL (0.55-1.30); GLOMERULAR FILTRATION RATE 19.7 (>45); POTASSIUM SERUM 3.9 MEQ/L (3.5-5.1)
[2018-05-11] MEDS: SYMBICORT 160/4.5MCG INHALER 6GM INH SCH (07:35)
[2018-05-11] MEDS: VITAMIN D 1,000 INTERNATIONAL UNITS TABLET PO SCH (08:23)
[2018-05-11] MEDS: ASPIRIN 325 MG TAB PO SCH (08:23)
[2018-05-11] MEDS: HumaLOG INSULIN (NovoLOG) PER UNIT SC SCH ×2 (08:24→11:54)
[2018-05-11] MEDS: OMEPRAZOLE 20 MG CAP PO SCH (08:24)
[2018-05-11] MEDS: TORSEMIDE 20 MG TAB PO SCH (08:24)
--- NOTE | 2018-05-11 11:53 | IPN ---
DATE OF VISIT: 05/11/2018 Mrs. Duran seen this morning on her bedside. She is feeling much better today and denies any dizziness, nausea, vomiting, dyspnea or chest pain. She was admitted due to bradycardia and atrioventricular (AV) block during Perma-Cath placement. She converted to sinus rhythm shortly afterwards in intensive care unit. She did have a drop in her hematocrit and required transfusion of 2 units of packed red blood cells (RBCs) yesterday. She was dialyzed yesterday afternoon and has been now transferred to regular medical floor. On physical exam, temperature 96.4 degrees Fahrenheit, heart rate 64 per minute and respiratory rate 16 per minute. Blood pressure 156/70 mmHg and oxygen saturation 93% on room air. Head is atraumatic. Neck is supple and without jugular venous distention (JVD) or thyroid enlargement. She has no oral thrush or ulcers. Heart sounds are regular and lungs sound clear to auscultation bilaterally. Abdomen soft and nontender, and bowel sounds are normal. Extremities have no cyanosis or clubbing. Her left arm AV fistula is patent with large area of ecchymosis and hematoma in her left upper arm. She has right-sided internal jugular vein Perma-Cath in place. Neurologically, she is awake, alert and oriented times three. Today's labs show WBC count 9.1, hemoglobin 11.0 and hematocrit 33.9. Sodium 138, potassium 3.9, CO2 of 28, BUN 29 and creatinine 2.58. Calcium level is 7.7. PROBLEMS: 1. End-stage renal disease. Patient was dialyzed yesterday and she will be next dialyzed tomorrow at her regular day and time. 2. Congestive heart failure. She does have history of congestive heart failure and we removed about 2.5 liters fluid yesterday with dialysis. At present, her volume seems clinically well-compensated. 3. Acute blood loss anemia. Patient has significant hematoma in her left arm due to infiltration of AV fistula. She dropped her hematocrit yesterday and was transfused 2 units of packed RBCs. Her anemia has already improved. She will be followed for anemia in outpatient dialysis clinic. 4. Bradycardia and AV fabien block. Patient did have a transient episode of bradycardia during the procedure for Perma-Cath placement. She has improved and remained stable since then. She was seen by cardiology and pacemaker was not indicated. She is feeling well now. I feel she can be discharged to home today and followup in outpatient dialysis clinic.
--- NOTE | 2018-05-11 20:47 | DSES ---
DATE OF ADMISSION: 05/09/2018 DATE OF DISCHARGE: 05/11/2018 DISCHARGE DIAGNOSIS: Heart block. SECONDARY DIAGNOSIS: End-stage renal disease, on hemodialysis. Coronary artery disease. Obstructive sleep apnea. Asthma. Insulin-dependent diabetes. Hypothyroidism. Hypertension. Hypercholesterolemia. Restrictive ambulatory impairment. Anemia of end-stage renal disease. Abnormal troponin. HOSPITAL COURSE: The patient is a 67-year-old female who was undergoing palpation to PermaCath placement for dialysis access. When the guidewire was placed, she did go into complete heart block. She was admitted to the medical intensive care unit and seen by supervisor blueprinting and photocopy services who will continue consultation by Dr. Burton of cardiology as well as Dr. Marcial of nephrology. It was believed that her transient heart block was secondary to a right ventricular guidewire placement and tip is almost going back to the wire. Cardiology did plan to have a 30 day event monitor to be completed on the outpatient setting as well as possibly a nuclear stress test in their office. SUBJECTIVE: Patient tells me that she is feeling well and would like to go home. She has no complaints whatsoever. OBJECTIVE: VITAL SIGNS: Temperature 96.4, pulse 64, respiratory rate 16, blood pressure 136/70, oxygen saturation 97% on room air. GENERAL: She is an obese pleasant female lying comfortably in bed. No acute distress. HEENT: Cranial nerves II through XII grossly intact. She has moist mucous membranes. No elevation of JVP. CARDIOVASCULAR: S1, S2, regular. RESPIRATORY: Fairly clear. ABDOMEN: Obese. She has a hematoma over her left fistula site because of right tunneled catheter in place. EXTREMITIES: No clubbing, cyanosis or edema. LABORATORY STUDIES: WBC 9.1, hemoglobin 11, platelet count 246. Chemistry panel: Sodium 138, potassium 8.9, chloride 104, bicarbonate 28, BUN 29, creatinine 2.5. IMAGING: The patient did have a chest x-ray that revealed no acute disease. ASSESSMENT AND PLAN: A 67-year-old female with end-stage renal disease, who is undergoing PermaCath placement who developed a transient complete heart block. 1. Transient complete heart block. Dr. Burton's help was greatly appreciated. Plan for outpatient 30 day event monitor. No recurrence. Likely secondary to guidewire in the right ventricle. It does appear to have resolved. 2. Coronary artery disease. She did have an abnormal troponin and she was hypotensive briefly. Agree with outpatient nuclear stress testing through Dr. Burton's office. 3. Anemia of end-stage renal disease. Nephrology's help is greatly appreciated. She did receive dialysis while hospitalized. She received 2 units of packed red blood cells during her stay. The patient is on calcitriol, torsemide. 4. Hypothyroidism. Continue Synthroid. 5. Dyslipidemia. Continue with Lipitor. 6. Gastroesophageal reflux disease. Continue with omeprazole. 7. Vitamin D deficiency. Continue with supplementation. 8. Insulin-dependent diabetes. She is on sliding scale while hospitalized and was well controlled. 9. COPD and asthma. She is to continue with Symbicort. 10. Coronary artery disease. She is on aspirin, statin. Curiously not a beta nancy. Will defer to cardiology. She has been taken off her beta nancy with regards to her heart block as outlined above. 11. Hypertension. No beta nancy as outlined above. 12. Deep venous thrombosis (DVT) prophylaxis. She received heparin while here. DISPOSITION: The patient is being discharged home. Her clinical condition has resolved. She has a followup with Dr. Burton and also followup with nephrology for regular hemodialysis. Followup with primary care provider within 7 days. Her activity as is prior to admission. Her diet is renal consistent carbohydrate. She is to check her fingersticks and restart insulin as needed at half the usual dosing. She is to call her primary care's office with questions. She had some mild hypoglycemia while here. MEDICATIONS AT THE TIME OF DISCHARGE: - Extra-strength Tylenol 1 gram 4 times daily as needed for pain - Ventolin HFA 2 puffs inhaled 4 times daily as needed for shortness of breath. - aspirin 81 mg daily - atorvastatin 40 mg at bedtime - azelastine one spray nasally twice a day - Symbicort 160/4.5 two puffs twice a day - calcitriol 0.5 mcg five times a week Tuesday through Tuesday and 2.25 mcg Tuesday and Tuesday - vitamin D3 1000 units daily - glucose 4 grams two as needed for blood sugar less than 50. - iron 325 mg by mouth daily - Synthroid 112 mcg daily - Nitrostat 0.4 mg sublingual every 5 minutes as needed for chest pain - omeprazole 20 mg daily - torsemide 40 mg daily She is to stop taking her metoprolol and her insulin as well as Trulicity in the interim and to monitor her fingersticks and restart if needed. Could consider outpatient hemoglobin A1c testing as well. Time: Greater than 30 minutes spent organizing disposition.
[2018-05-13] MEDS ORDERED: CALCITRIOL 0.25 MCG CAP (S0169) PO SCH (09:00)
== END 2018-05-11 13:50 | disposition home or self-care (01) | DRG 314 ==
LOC: M IRPRO 09:08 → M ICU 10:40 → M MSPAV 05-10 13:07
PROVIDERS: ADMIT Surgery Vascular Surgery; ATTEND Internal Medicine
PROC: 02HV33Z Insertion of Infusion Device into Superior Vena Cava, Percutaneous Approach (ICD-10-PCS; principal; 2018-05-09)
PROC: 0JH63XZ Insertion of Tunneled Vascular Access Device into Chest Subcutaneous Tissue and Fascia, Percutaneous Approach (ICD-10-PCS; 2018-05-09)
PROC: 30233N1 Transfusion of Nonautologous Red Blood Cells into Peripheral Vein, Percutaneous Approach (ICD-10-PCS; 2018-05-10)
PROC: 5A1D70Z Performance of Urinary Filtration, Intermittent, Less than 6 Hours Per Day (ICD-10-PCS; 2018-05-10)
DX: I97.89 Other postprocedural complications and disorders of the circulatory system, not elsewhere classified (principal); N18.6 End stage renal disease; I44.2 Atrioventricular block, complete; I13.2 Hypertensive heart and chronic kidney disease with heart failure and with stage 5 chronic kidney disease, or end stage renal disease; D62 Acute posthemorrhagic anemia; G47.33 Obstructive sleep apnea (adult) (pediatric); I25.10 Atherosclerotic heart disease of native coronary artery without angina pectoris; J45.909 Unspecified asthma, uncomplicated; E11.9 Type 2 diabetes mellitus without complications; E03.9 Hypothyroidism, unspecified; E78.00 Pure hypercholesterolemia, unspecified; D63.1 Anemia in chronic kidney disease; E78.5 Hyperlipidemia, unspecified; K21.9 Gastro-esophageal reflux disease without esophagitis; E55.9 Vitamin D deficiency, unspecified; Z79.82 Long term (current) use of aspirin; Z79.899 Other long term (current) drug therapy; I25.2 Old myocardial infarction; Z95.2 Presence of prosthetic heart valve; Z88.8 Allergy status to other drugs, medicaments and biological substances; Z91.040 Latex allergy status; D72.829 Elevated white blood cell count, unspecified; E66.01 Morbid (severe) obesity due to excess calories; I50.9 Heart failure, unspecified

== ENCOUNTER → 2018-05-23 | Outpatient (CLI) | payer MEDICARE ==
[~2018-05-23] MED LIST changes: +ACET-683 PO; -ASPI1TAB PO; -ASPI81CH32 PO; +ASPI81CH33 PO; +ASPI81TA26 PO; +BUPIVACAINE HCL 0.5% 10 ML VIAL As Ordered ONE; +D-101000 PO; +IRON65TA2 PO; +ISOVUE-300 61% 100ML VIAL (Q9967) As Ordered ONE; +LEVO112T2 PO; +LEVO500T3 PO; +LIDOCAINE 2% MDV 20 ML VIAL As Ordered ONE; +LOPE-1 PO; +METO1TAB7 PO; +MIDAZOLAM INJ 2 MG/2 ML VIAL (J2250) As Ordered ONE; +SYMB80INH INH; -TIZA-208 PO; +TIZA4TAB4 PO; +TRES100I SC; +fentaNYL 100 MCG/2 ML INJECTION (J3010) As Ordered ONE
--- NOTE | 2018-06-14 08:16 | REPIR ---
DATE OF PROCEDURE: 05/23/2017 ATTENDING SURGEON: Dr. Patito Benito ASSISTANTS: Jayla Cast and Jovan Ritchie PREOPERATIVE DIAGNOSES: 1. End-stage renal disease. 2. Dysfunctional left brachiocephalic arteriovenous fistula. POSTOPERATIVE DIAGNOSES: 1. End-stage renal disease. 2. Dysfunctional left brachiocephalic arteriovenous fistula. PROCEDURES: Left brachiocephalic arteriovenous fistulogram. Retrograde left brachial artery angiogram. Left cephalic vein angioplasty with 10 x 80 mm balloon. Left subclavian vein angioplasty with 10 x 80 mm balloon. INDICATION: The patient is a 67-year-old female with difficulty with use of her left brachiocephalic arteriovenous fistula who will undergo a fistulogram with possible angioplasty, stent and/or atherectomy. Risks, benefits and alternative treatment options were discussed with the patient. ANESTHESIA: Local with 1 mL of 2% lidocaine mixed with 0.5% Marcaine. FLUORO TIME: 0.3 minutes. CONTRAST: 3 mL of ISOVUE 300. HEPARIN: None. COMPLICATIONS: None. DRAINS: None. SPECIMENS: None. IMPLANTS: None. PROCEDURE: The patient was taken to the angiography suite, placed supine on the angiography room table, and the left upper extremity was prepped and draped in the standard surgical fashion. The fistula was cannulated and a fistulogram showed stenosis in the cephalic vein/subclavian vein junction. This was angioplastied with 10 x 80 balloon. A retrograde left brachial artery angiogram was performed during inflation with a 10 x 80 balloon showing no intervention required. The completion fistulogram showed resolution of the stenosis with excellent flow through the cephalic vein into the subclavian vein essentially with no residual stenosis remaining. Catheters and wires were removed. The sheath was removed and a #2-0 Prolene suture was placed at the puncture site for hemostasis. Dressings were then applied. The patient tolerated the procedure well. All instrument, sponge, and needle counts were correct at the end of the case. There were no complications. Dr. Benito was present for and directed the entire case. The patient was transferred to holding area and subsequently to the floor in stable condition. The fistula is stable for use for hemodialysis access.
== END | disposition home or self-care (01) ==
LOC: M IRPRO 08:37
PROVIDERS: ATTEND Surgery Vascular Surgery
DX: T82.858A Stenosis of other vascular prosthetic devices, implants and grafts, initial encounter (principal); N18.6 End stage renal disease
CPT/HCPCS: 36902; C1725; C1769; C1894; J2250; J3010; Q9967

== ENCOUNTER 2018-05-25 20:03 | Emergency (ER) | payer MEDICARE ==
[~2018-05-25] VITALS: Ht 142.2 cm; Wt 86.4 kg
[~2018-05-25 20:03] MED LIST changes: -ACET-683 PO; -BUPIVACAINE HCL 0.5% 10 ML VIAL As Ordered ONE; -D-101000 PO; -IRON65TA2 PO; -ISOVUE-300 61% 100ML VIAL (Q9967) As Ordered ONE; -LEVO500T3 PO; -LIDOCAINE 2% MDV 20 ML VIAL As Ordered ONE; -LOPE-1 PO; -MIDAZOLAM INJ 2 MG/2 ML VIAL (J2250) As Ordered ONE; -SYMB80INH INH; -TRES100I SC; -fentaNYL 100 MCG/2 ML INJECTION (J3010) As Ordered ONE
[2018-05-25] MEDS ORDERED: NS 1,000 ML IV SCH (20:30)
[2018-05-25] MEDS ORDERED: ACETAMINOPHEN TAB 650MG DOSE (2X325MG) PO ONE (20:30)
[2018-05-25] MEDS ORDERED: ONDANSETRON 4MG/2ML VIAL (J2405) IV ONE (20:30)
[2018-05-25 21:47] LABS: BASO # 0.1 10^3/uL (0.0-0.2); BASO % 0.3 % (0.0-1.0); HEMOGLOBIN 11.6 g/dl (12.0-15.5); LYMPH # 0.6 10^3/uL (1.5-4.5); LYMPH % 2.7 % (24.0-44.0); MEAN CORPUSCULAR HEMOGLOBIN 29.1 pg (27.0-33.0); MEAN CORPUSCULAR HGB CONC 32.2 g/dl (32.0-36.5); MEAN CORPUSCULAR VOLUME 90.5 fl (80.0-96.0); MONO # 0.9 10^3/uL (0.0-0.8); NEUTROPHILS % 92.2 % (36.0-66.0); PLATELET COUNT, AUTOMATED 234 10^3/uL (150-450); RED BLOOD COUNT 3.98 10^6/uL (4.00-5.40); WHITE BLOOD COUNT 23.8 10^3/uL (4.0-10.0)
[2018-05-25 22:05] LABS: ALBUMIN 2.9 GM/DL (3.2-5.2); BILIRUBIN,DIRECT 0.3 MG/DL (0.0-0.2); BILIRUBIN,TOTAL 0.7 MG/DL (0.2-1.0); CALCIUM LEVEL 8.5 MG/DL (8.8-10.2); CREATININE FOR GFR 3.25 MG/DL (0.55-1.30); GLOMERULAR FILTRATION RATE 15.1 (>45); POTASSIUM SERUM 3.8 MEQ/L (3.5-5.1); TOTAL PROTEIN 6.6 GM/DL (6.4-8.2)
--- NOTE | 2018-05-25 22:06 | REPVR ---
EXAM: XR Chest, 2 Views EXAM DATE/TIME: 05/25/2018 8:35 PM CLINICAL HISTORY: 67 years old, female; Condition or disease; Other: Fever TECHNIQUE: Imaging protocol: XR of the chest, 2 views. COMPARISON: CR PORTABLE CHEST X-RAY 05/09/2018 10:58 AM FINDINGS: Tubes, catheters and devices: Double-lumen venous catheter enters from the right subclavian approach with the tip at the superior cavoatrial junction. Lungs: Unremarkable. No consolidation. Pleural space: Unremarkable. No pleural effusion. No pneumothorax. Heart/Mediastinum: Unremarkable. No cardiomegaly. Bones/joints: Degenerative arthropathy left shoulder. Otherwise unremarkable. IMPRESSION: No acute findings Electronically signed by: Pito Owen On 05/25/2018 22:05:57 PM
[2018-05-25 22:11] LABS: INFLUENZA A AMPLIFICATION NEGATIVE (NEGATIVE); INFLUENZA B AMPLIFICATION NEGATIVE (NEGATIVE)
[2018-05-25] MEDS ORDERED: IBUPROFEN 600 MG TAB PO ONE (22:30)
[2018-05-25] MEDS ORDERED: SYMB80INH INH (23:30)
[2018-05-25] MEDS ORDERED: LOPE-1 PO (23:30)
[2018-05-25] MEDS ORDERED: TRUL0.5I SC (23:30)
[2018-05-25] MEDS ORDERED: HUMA75IN2 SC (23:35)
[2018-05-25] MEDS ORDERED: TRES100I SC (23:35)
[2018-05-25] MEDS ORDERED: METO50TA7 PO (23:35)
[2018-05-25] MEDS ORDERED: LevoFLOXacin IV 750 MG in APPROPRIATE DILUENT 1 EA IV ONE (23:45)
[2018-05-25] MEDS ORDERED: LEVO500T3 PO (23:51)
[2018-05-26 01:19] VITALS: BP 100/52
[2018-05-26] MEDS ORDERED: IRON65TA2 PO (22:40)
[2018-05-26] MEDS ORDERED: ACET-683 PO (22:40)
[2018-05-26] MEDS ORDERED: D-101000 PO (22:40)
== END 2018-05-26 01:37 | disposition home or self-care (01) ==
LOC: M ED 20:03
DX: N39.0 Urinary tract infection, site not specified (principal); E11.9 Type 2 diabetes mellitus without complications; I12.0 Hypertensive chronic kidney disease with stage 5 chronic kidney disease or end stage renal disease; N18.6 End stage renal disease; J45.909 Unspecified asthma, uncomplicated; E07.9 Disorder of thyroid, unspecified; E78.5 Hyperlipidemia, unspecified; G47.33 Obstructive sleep apnea (adult) (pediatric); Z99.2 Dependence on renal dialysis; Z79.899 Other long term (current) drug therapy; Z79.890 Hormone replacement therapy; Z79.4 Long term (current) use of insulin; Z79.82 Long term (current) use of aspirin; Z88.1 Allergy status to other antibiotic agents; Z88.2 Allergy status to sulfonamides; Z88.5 Allergy status to narcotic agent; Z88.8 Allergy status to other drugs, medicaments and biological substances; Z91.040 Latex allergy status

== ENCOUNTER 2018-05-26 21:08 | Inpatient (IN) | payer MEDICARE ==
[~2018-05-26] VITALS: Ht 149.9 cm; Wt 88.1 kg
[~2018-05-26 21:08] MED LIST changes: +LEVO500T3 PO; +LOPE-1 PO; +SYMB80INH INH; +TRES100I SC
[2018-05-26] MEDS: NS 1,000 ML IV SCH (21:45)
[2018-05-26 22:16] LABS: BASO % 0.2 % (0.0-1.0); HEMATOCRIT 32.9 % (36.0-47.0); HEMOGLOBIN 10.6 g/dl (12.0-15.5); LYMPH # 0.3 10^3/uL (1.5-4.5); LYMPH % 2.1 % (24.0-44.0); MEAN CORPUSCULAR HEMOGLOBIN 28.9 pg (27.0-33.0); MEAN CORPUSCULAR HGB CONC 32.2 g/dl (32.0-36.5); MEAN CORPUSCULAR VOLUME 89.6 fl (80.0-96.0); MONO # 0.7 10^3/uL (0.0-0.8); MONO % 5.3 % (0.0-5.0); NEUTROPHILS # 11.9 10^3/uL (1.8-7.7); NEUTROPHILS % 91.9 % (36.0-66.0); PLATELET COUNT, AUTOMATED 211 10^3/uL (150-450); RED BLOOD COUNT 3.67 10^6/uL (4.00-5.40)
[2018-05-26 22:27] LABS: ABG BASE EXCESS 4.8 (-2.0-2.0); ABG HCO3 27.2 MEQ/L (22.0-26.0); ABG PARTIAL PRESSURE CO2 32.5 mmHg (35.0-45.0); ABG PARTIAL PRESSURE O2 102.8 mmHg (75.0-100.0); ABG STANDARD HCO3 28.8 MEQ/L (22.0-26.0); ABG TOTAL CO2 28.2 MEQ/L (23.0-31.0); ABG pH (ARTERIAL) 7.541 UNITS (7.350-7.450)
[2018-05-26 22:38] LABS: ALBUMIN 2.4 GM/DL (3.2-5.2); BILIRUBIN,DIRECT 0.4 MG/DL (0.0-0.2); BILIRUBIN,TOTAL 0.7 MG/DL (0.2-1.0); CALCIUM LEVEL 7.5 MG/DL (8.8-10.2); CREATININE FOR GFR 2.49 MG/DL (0.55-1.30); GLOMERULAR FILTRATION RATE 20.5 (>45); MB/CK RELATIVE INDEX 0.67 (< OR =4); POTASSIUM SERUM 3.2 MEQ/L (3.5-5.1); TOTAL PROTEIN 5.9 GM/DL (6.4-8.2); TROPONIN I 0.02 NG/ML (< 0.10)
[2018-05-26] MEDS ORDERED: D-101000 PO (22:40)
[2018-05-26] MEDS ORDERED: ACET-683 PO (22:40)
[2018-05-26] MEDS ORDERED: IRON65TA2 PO (22:40)
[2018-05-26] MEDS ORDERED: NS 1,000 ML IV ONE (22:45)
[2018-05-26] MEDS ORDERED: GLUCOSE 4 GM CHEW TABLET PO PRN (22:45)
[2018-05-26] MEDS ORDERED: GLUCAGON FOR INJ 1 MG VIAL (J1610) SC PRN (22:45)
[2018-05-26] MEDS ORDERED: VANCOMYCIN HCL 1,000 MG, VIAL MATE ADAPTER 1 EACH in D5W 250 ML IV SCH (22:45)
[2018-05-26] MEDS ORDERED: IPRATROPIUM 0.5MG/ALBUTEROL 2.5MG INH SOL UD 3ML (DUONEB)(J7620) NEB PRN (22:45)
[2018-05-26] MEDS ORDERED: DEXTROSE 50% 50 ML SYRINGE IV PRN (22:45)
[2018-05-26] MEDS ORDERED: VANCOMYCIN HCL 1,000 MG, VIAL MATE ADAPTER 1 EACH in D5W 250 ML IV ONE (23:00)
[2018-05-26] MEDS: HumaLOG INSULIN (NovoLOG) PER UNIT SC SCH (23:42)
--- NOTE | 2018-05-26 23:42 | HPEPDOC ---
General Date of Admission May 26, 2018 at 22:36 Chief Complaint The patient is a 67-year-old female admitted with a reason for visit of UTI. History of Present Illness 67 year-old female past medical history of hypertension, dyslipidemia, diabetes, asthma, chronic diastolic congestive heart failure, coronary artery disease status post stenting in 2013, and end-stage renal disease on hemodialysis (M, W, F) was sent to the ER following dialysis this evening after she was noted to be hypotensive and febrile. The patient states that she has been having generalized weakness and several episodes of vomiting since Tuesday. She denies any acute complaints of lightheadedness, dizziness, chest pain, palpitations, abdominal pain, sick contacts, recent travel, or any diarrhea. She did come to the ER last night and was diagnosed with a urinary tract infection. She was discharged home on antibiotic therapy. However, the patient states that she started to feel febrile again today and was sent here for further evaluation and management. Home Medications Scheduled Aspirin (Aspirin EC) 81 Mg Tab, 81 MG PO DAILY, (Reported) Atorvastatin Calcium (Atorvastatin Calcium) 40 Mg Tab, 40 MG PO DAILY, (Reported) Azelastine HCl (Azelastine HCl) 0.15 % Spr, 1 SPRAY NA BID, (Reported) Budesonide/Formoterol (Symbicort 80-4.5 Mcg Inhaler) 6.9 Gm Hfa.aer.ad, 2 PUFF INH BID, (Reported) Calcitriol (Calcitriol) 0.25 Mcg Cap, 0.25 MCG PO DAILY, (Reported) Cholecalciferol (Vitamin D3) (Vitamin D3) 1,000 Unit Capsule, 1,000 UNIT PO DAILY, (Reported) Dulaglutide (Trulicity) 1.5 Mg/0.5 Ml Pen.injctr, 1.5 MG SC 1XWK, (Reported) TAKES ON FRIDAYS Ferrous Sulfate (Iron) 325 Mg Tablet, 325 MG PO DAILY, (Reported) Insulin Degludec (Tresiba) 100 Unit/1 Ml Vial, 80 UNIT SC QAM, (Reported) Insulin Lispro Protamin/Lispro (Humalog Mix 75-25 Kwikpen) 100 Unit/1 Ml Insuln.pen, 20 UNITS SC WM, (Reported) Levothyroxine Sodium (Levothyroxine Sodium) 112 Mcg Tab, 112 MCG PO DAILY, (Reported) Metoprolol Tartrate (Metoprolol Tartrate) 50 Mg Tablet, 50 MG PO BID, (Reported) Omeprazole (Omeprazole) 20 Mg Tab, 20 MG PO DAILY, (Reported) Torsemide (Torsemide) 20 Mg Tab, 30 MG PO DAILY, (Reported) Scheduled PRN Acetaminophen (Acetaminophen) 500 Mg Tablet, 1,000 MG PO Q6H PRN for PAIN, (Reported) Albuterol Sulfate (Ventolin Hfa) 108 Mcg/Act Aer, 2 PUFFS INH QID PRN for SHORTNESS OF BREATH, (Reported) Dextrose (Glucose) 4 Gm Chw, 4 GM PO PRN PRN for BLOOD SUGAR < 50, (Reported) Loperamide HCl (Imodium A-D) 2 Mg Capsule, 2 TAB PO DAILY PRN for DIARRHEA, (Reported) Nitroglycerin (Nitrostat) 0.4 Mg Subl, 0.4 MG SL NITRO PRN for CHEST PAIN, (Reported) Allergies Coded Allergies: cephalexin (Verified Allergy, Severe, RASH, DYSPNEA, 05/09/18) gatifloxacin (Verified Allergy, Severe, RASH, DYSPNEA, 05/09/18) tramadol (Verified Allergy, Severe, RASH, DYSPNEA, 05/09/18) nitrofurantoin (Verified Allergy, Mild, RASH, 05/09/18) latex (Verified Allergy, Unknown, 05/09/18) sulfamethoxazole (Verified Adverse Reaction, Intermediate, EFFECTS KIDNEY FUNCTION, 05/09/18) trimethoprim (Verified Adverse Reaction, Intermediate, EFFECTS KIDNEY FUNCTION, 05/09/18) Past Medical History Medical History As noted in HPI. Surgical History Cataract surgeries, appendectomy, carpal tunnel surgery, left upper extremity AV fistula creation, foot surgery, permacath placement for dialysis Social History * Smoker: Denies Alcohol: Denies Drugs: denies Review of Systems Other systems 10 point review of systems negative unless otherwise specified HPI. Physical Examination General Exam: Positive: Alert, Cooperative, No Acute Distress ENT Exam: Positive: Atraumatic; Negative: Mucous membr. moist/pink (dry mucous membranes) Chest Exam: Positive: Diminished Heart Exam: Positive: Rate Normal, Normal S1, Normal S2 Abdomen Exam: Positive: Soft; Negative: Tenderness Extremity Exam: Negative: Tenderness, Swelling Psych Exam: Positive: Oriented x 3 Vital Signs Vital Signs Date Time Temp Pulse Resp B/P (MAP) Pulse Ox O2 Delivery O2 Flow Rate FiO2 05/26/18 23:36 98.8 75 20 122/59 (80) 96 Nasal Cannula 2.0 Laboratory Data Labs 24H Laboratory Tests 2 05/26/18 21:59: Immature Granulocyte % (Auto) 0.5, White Blood Count 13.0H, Red Blood Count 3.67L, Hemoglobin 10.6L, Hematocrit 32.9L, Mean Corpuscular Volume 89.6, Mean Corpuscular Hemoglobin 28.9, Mean Corpuscular Hemoglobin Concent 32.2, Red Cell Distribution Width 16.2H, Platelet Count 211, Neutrophils (%) (Auto) 91.9H, Lymphocytes (%) (Auto) 2.1L, Monocytes (%) (Auto) 5.3H, Eosinophils (%) (Auto) 0.0, Basophils (%) (Auto) 0.2, Neutrophils # (Auto) 11.9H, Lymphocytes # (Auto) 0.3L, Monocytes # (Auto) 0.7, Eosinophils # (Auto) 0.0, Basophils # (Auto) 0.0, Nucleated Red Blood Cells % (auto) 0.0, Anion Gap 7L, Glomerular Filtration Rate 20.5L, Lactic Acid Level 1.2, Calcium Level 7.5L, Aspartate Amino Transf (AST/SGOT) 56H, Alanine Aminotransferase (ALT/SGPT) 37, Alkaline Phosphatase 132H, Total Bilirubin 0.7, Direct Bilirubin 0.4H, Total Creatine Kinase 706H, Creatine Kinase MB 5.0H, Creatine Kinase MB Relative Index 0.67, Troponin I 0.02, Total Protein 5.9L, Albumin 2.4L, Albumin/Globulin Ratio 0.69L, Lipase 88 05/26/18 22:20: Blood Gas Bicarbonate Standard 28.8H, Arterial Blood pH 7.541H, Arterial Blood Partial Pressure CO2 32.5L, Arterial Blood Partial Pressure O2 102.8H, Arterial Blood Total CO2 28.2, Arterial Blood HCO3 27.2H, Arterial Blood Base Excess 4.8H, Arterial Blood Oxygen Saturation 98.0 CBC/BMP Laboratory Tests 05/26/18 21:59 Red Blood Count 3.67 L, Mean Corpuscular Volume 89.6, Mean Corpuscular Hemoglobin 28.9, Mean Corpuscular Hemoglobin Concent 32.2, Red Cell Distribution Width 16.2 H, Neutrophils (%) (Auto) 91.9 H, Lymphocytes (%) (Auto) 2.1 L, Monocytes (%) (Auto) 5.3 H, Eosinophils (%) (Auto) 0.0, Basophils (%) (Auto) 0.2, Neutrophils # (Auto) 11.9 H, Lymphocytes # (Auto) 0.3 L, Monocytes # (Auto) 0.7, Eosinophils # (Auto) 0.0, Basophils # (Auto) 0.0 Plan / VTE VTE Prophylaxis Ordered?: Yes Plan Plan Sepsis possibly 2/2 UTI, s/p failure of outpatient Abx therapy Urinalysis noted, Urine Culture from 05/25 pending Blood cultures drawn in dialysis today--we will follow up WBC appears to be improving from yesterday We will cont to empirically cover the patient with Vanco/Zosyn Cont to monitor progress in PCU and de-escalate Abx coverage based on cultures ESRD on HD (M,W,F) s/p Dialysis today Consider Nephrology consult if the patient will remain admitted until Tuesday CAD s/p Stenting in 2013 Cont ASA, Statin Diabetes Mellitus ISS Basal insulin held 2/2 decreased PO intake Asthma, stable Cont Inhaler therapy as ordered Hx of Diastolic CHF Does not appear to be volume decompensated Dyslipidemia Continue statin GERD Continue PPI Hypothyroidism Continue levothyroxine DVT prophylaxis Heparin subcutaneous SHAKILA SANTILLAN MD May 26, 2018 23:41
[2018-05-27] MEDS: PIPERACILLIN/TAZOBACTAM SOD 2.25 GM in D5W MINI-BAG PLUS 50 ML IV SCH ×2 (01:13→13:16)
[2018-05-27] MEDS ORDERED: VANCOMYCIN HCL 1,000 MG, VIAL MATE ADAPTER 1 EACH in D5W 250 ML IV SCH (01:15)
[2018-05-27] MEDS: IPRATROPIUM 0.5MG/ALBUTEROL 2.5MG INH SOL UD 3ML (DUONEB)(J7620) NEB SCH ×4 (02:00→21:19)
--- NOTE | 2018-05-27 02:06 | PHACANCOPD ---
PHARMACY VANCOMYCIN DOSING Pt Demographics Demographics Patient Age:67 , Weight:84.000 , Gender: female Adjusted Body Weight Date: 05/27/18, Adjusted Body Weight: Kg Events Past 24 Hours Events Past 24 Hours: YES: Dialysis Vancomycin Vancomycin indication: SEPSIS/UIT Vancomycin Target Ranges: 10-20 mcg/ml Vancomycin Load Y/N: No Load Dose Date Time Vancomycin Load Dose: Date: Time: Vancomycin Dose Date: 05/27/18. Current Vancomycin Dose: [1 GRAM HD] Intermittent Dosing?: No Labs Labs Laboratory Tests 05/26/18 21:59 Red Blood Count 3.67 L, Mean Corpuscular Volume 89.6, Mean Corpuscular Hemoglobi n 28.9, Mean Corpuscular Hemoglobin Concent 32.2, Red Cell Distribution Width 16.2 H, Neutrophils (%) (Auto) 91.9 H, Lymphocytes (%) (Auto) 2.1 L, Monocytes (%) (Auto) 5.3 H, Eosinophils (%) (Auto) 0.0, Basophils (%) (Auto) 0.2, Neutrophils # (Auto) 11.9 H, Lymphocytes # (Auto) 0.3 L, Monocytes # (Auto) 0.7, Eosinophils # (Auto) 0.0, Basophils # (Auto) 0.0 Creatinine Clearance Date:05/27/18. Creatinine Clearance: [23.8]CALCULATED POST DIALYSIS. Assessment and Plan Maintaining Current Dose?: Yes Reason for dose change: No Dose Change Pharmacist Note Pharmacist Note Date: 05/27/18. Pharmacist note:67 YOF-[facility].HT;59",84KG;SCR=2.49 ;cALCULATED crcl=23.8.. ordered Pip/Tazo 2.25 grams IV Q12h and vancomycin per Pharmacy dosing protocol.Will administer Vancomycin post dialysis days(MWF)-will continue to follow [facility] May 27, 2018 02:06
[2018-05-27] MEDS: HEPARIN SOD (PORCINE) 5000 UNITS/ML VIAL SC SCH ×3 (06:34→21:06)
[2018-05-27] MEDS: LEVOTHYROXINE 112MCG TABLET (0.112MG) PO SCH (06:40)
[2018-05-27] MEDS: HumaLOG INSULIN (NovoLOG) PER UNIT SC SCH ×4 (07:30→21:00)
[2018-05-27] MEDS: NS 1,000 ML IV SCH (07:45)
[2018-05-27] MEDS: SYMBICORT 80/4.5MCG INHALER 6GM INH SCH ×2 (08:00→21:18)
[2018-05-27] MEDS: ATORVASTATIN 20 MG TAB PO SCH (08:33)
[2018-05-27] MEDS: OMEPRAZOLE 20 MG CAP PO SCH (08:34)
[2018-05-27] MEDS: ASPIRIN 81 MG ENTERIC TAB PO SCH (08:34)
[2018-05-27] MEDS: VITAMIN D 1,000 INTERNATIONAL UNITS TABLET PO SCH (08:34)
[2018-05-27] MEDS ORDERED: LevoFLOXacin IV 500 MG in APPROPRIATE DILUENT 1 EA IV SCH (09:00)
--- NOTE | 2018-05-27 12:25 | IPNPDOC ---
Subjective Date Seen The patient was seen on 05/27/18. Subjective Chief Complaint/HPI The patient is a 67 year-old female with a history chronic diastolic congestive heart failure, coronary artery disease status and ESRD on HD who was sent to the ER from dialysis after she was noted to be hypotensive and febrile Events since last encounter The patient reports she is feeling a little better compared to when she came in. She still feels a little dizzy. Denies any chest pain or shortness of breath or cough. Denies any nausea or vomiting. No abdominal pain. Denies any overt dysuria. Low-grade fever this morning. Reports she lives with her daughterit is a single story house but she has about 12 steps to get into the house. Usually uses a walker to ambulate. Objective Physical Examination General Exam: Positive: Alert, Cooperative, No Acute Distress, Other (lying in bed) ENT Exam: Positive: Atraumatic, Mucous membr. moist/pink Chest Exam: Positive: Clear to auscultation; Negative: Rales, Rhonchi Heart Exam: Positive: Rate Normal, Normal S1, Normal S2 Abdomen Exam: Positive: Soft; Negative: Tenderness Extremity Exam: Positive: Normal pulses Neuro Exam: Positive: Other (awake, alert, answering questions appropriately) Psych Exam: Positive: Mental status NL, Mood NL, Oriented x 3 Assessment /Plan Assessment Sepsis secondary to urinary tract infection present on admission with failed outpatient treatment: -Continue IV vancomycin and Zosyn -Follow up on urine cultures from 05/25pen -Labs ordered for tomorrow -Blood pressure normal -Low-grade fever -Respiratory virus panel negative -DC IV fluids as patient is a dialysis patient End-stage renal disease on hemodialysis Friday: -Last hemodialysis was on Tuesday -We will consult nephrology if patient does require dialysis on Tuesday if she still here Coronary disease status post stenting in 2014: -Continue aspirin and statin Diabetes Mellitus type 2: -Continue sliding insulin -Holding basal insulin - may resume by tomorrow if by mouth intake remains well. Patient did tolerate breakfast well this morning Asthma, stable -Continue Symbicort, nebs Chronic Diastolic CHF -Watch for any fluid overload. I will DC patient's IV fluids as she is tolerating oral intake Dyslipidemia -Continue atorvastatin GERD -Continue omeprazole Hypothyroidism -Continue levothyroxine DVT prophylaxis -Subcutaneous Heparin Disposition: Continue IV antibiotics and follow up on cultures. Anticipate eventual discharge home within the next 24-48 hours pending results of cultures and if patient is able to transition to oral antibiotics. PT/OT evaluation for eventual disposition. Plan/VTE VTE Prophylaxis Ordered?: Yes VS, I&O, 24H, Fishbone Vital Signs/I&O Vital Signs Date Time Temp Pulse Resp B/P (MAP) Pulse Ox O2 Delivery O2 Flow Rate FiO2 05/27/18 09:26 99.3 80 23 124/60 (81) 99 Room Air 05/27/18 06:40 2.0 I&O- Last 24 Hours up to 6 AM 05/27/18 06:00 Intake Total 1050 ml Balance 1050 ml Laboratory Data 24H LABS Laboratory Tests 2 05/26/18 21:59: Immature Granulocyte % (Auto) 0.5, White Blood Count 13.0H, Red Blood Count 3.67L, Hemoglobin 10.6L, Hematocrit 32.9L, Mean Corpuscular Volume 89.6, Mean Corpuscular Hemoglobin 28.9, Mean Corpuscular Hemoglobin Concent 32.2, Red Cell Distribution Width 16.2H, Platelet Count 211, Neutrophils (%) (Auto) 91.9H, Lymphocytes (%) (Auto) 2.1L, Monocytes (%) (Auto) 5.3H, Eosinophils (%) (Auto) 0.0, Basophils (%) (Auto) 0.2, Neutrophils # (Auto) 11.9H, Lymphocytes # (Auto) 0.3L, Monocytes # (Auto) 0.7, Eosinophils # (Auto) 0.0, Basophils # (Auto) 0.0, Nucleated Red Blood Cells % (auto) 0.0, Anion Gap 7L, Glomerular Filtration Rate 20.5L, Lactic Acid Level 1.2, Calcium Level 7.5L, Aspartate Amino Transf (AST/SGOT) 56H, Alanine Aminotransferase (ALT/SGPT) 37, Alkaline Phosphatase 132H, Total Bilirubin 0.7, Direct Bilirubin 0.4H, Total Creatine Kinase 706H, Creatine Kinase MB 5.0H, Creatine Kinase MB Relative Index 0.67, Troponin I 0.02, Total Protein 5.9L, Albumin 2.4L, Albumin/Globulin Ratio 0.69L, Lipase 88 05/26/18 22:20: Blood Gas Bicarbonate Standard 28.8H, Arterial Blood pH 7.541H, Arterial Blood Partial Pressure CO2 32.5L, Arterial Blood Partial Pressure O2 102.8H, Arterial Blood Total CO2 28.2, Arterial Blood HCO3 27.2H, Arterial Blood Base Excess 4.8H, Arterial Blood Oxygen Saturation 98.0 05/26/18 23:41: Bedside Glucose (Misc Panel) 88 05/27/18 06:56: Random Vancomycin Level 13.2 05/27/18 07:28: Bedside Glucose (Misc Panel) 73L 05/27/18 08:35: Bedside Glucose (Misc Panel) 107 05/27/18 11:11: Bedside Glucose (Misc Panel) 165H CBC/BMP Laboratory Tests 05/26/18 21:59 Red Blood Count 3.67 L, Mean Corpuscular Volume 89.6, Mean Corpuscular Hemoglobin 28.9, Mean Corpuscular Hemoglobin Concent 32.2, Red Cell Distribution Width 16.2 H, Neutrophils (%) (Auto) 91.9 H, Lymphocytes (%) (Auto) 2.1 L, Monocytes (%) (Auto) 5.3 H, Eosinophils (%) (Auto) 0.0, Basophils (%) (Auto) 0.2, Neutrophils # (Auto) 11.9 H, Lymphocytes # (Auto) 0.3 L, Monocytes # (Auto) 0.7, Eosinophils # (Auto) 0.0, Basophils # (Auto) 0.0 Microbiology Microbiology 05/27/18 MRSA Screen, Received Pending 05/27/18 Respiratory Virus Panel (PCR) ([facility]) - Final, Complete PRATTPRITESH Cunningham MD May 27, 2018 12:24
--- NOTE | 2018-05-27 12:41 | CR ---
DATE OF CONSULTATION: 05/27/2018 NEPHROLOGY CONSULTATION FOR: Austin Miller MD REASON FOR CONSULTATION: To assist in the management of end-stage renal disease. HISTORY OF PRESENT ILLNESS: Mrs. Duran is a 67-year-old female with known history of type 2 diabetes, hypertension, chronic diastolic congestive heart failure, coronary artery disease and end-stage renal disease. She was seen in the emergency room 2 days ago and was found to have urinalysis with multiple WBCs. She had fever and leukocytosis on CBC. At that time, it was felt by emergency room (ER) physician that she only has urinary tract infection (UTI), and she was given one dose of intravenous Levaquin and sent home with oral Levaquin. The patient came for her regular dialysis treatment yesterday and developed fever up to 102 degrees Fahrenheit with shivering and chills. She also has a Perma-Cath in place which is currently being used for dialysis due to problems with her left arm arteriovenous (AV) fistula. My concern was possible sepsis due to which she was sent back to the emergency room after dialysis. She was given vancomycin 1 gram in dialysis unit prior to admission. She was admitted last evening and I have seen her this morning. PAST MEDICAL AND SURGICAL HISTORY: Significant for: 1. Type 2 diabetes. 2. Hypertension. 3. Chronic diastolic congestive heart failure. 4. Asthma. 5. Coronary artery disease, status post angioplasty with stents. 6. End-stage renal disease. 7. Anemia. 8. Hyperlipidemia. 9. Hypothyroidism. 10. Gastroesophageal reflux disease. Past surgical history is significant for appendectomy, carpal tunnel surgery, cataract surgery, left upper extremity AV fistula creation, Perma-Cath placement and foot surgery. ALLERGIES: She has multiple allergies including CEPHALEXIN, TRAMADOL, NITROFURANTOIN, LATEX, SULFAMETHOXAZOLE and TRIMETHOPRIM. MEDICATIONS: Home medications include aspirin 81 mg daily, atorvastatin 40 mg daily, calcitriol 0.25 mcg daily, vitamin D 1000 units daily, Trulicity 1.5 mcg once a week, ferrous sulfate 325 mg daily, Tresiba 80 units daily, Humalog insulin per sliding scale, levothyroxine 112 mcg daily, metoprolol 50 mg twice a day, omeprazole 20 mg daily, and torsemide 20 mg daily. PERSONAL AND SOCIAL HISTORY: The patient does not smoke or drink. FAMILY HISTORY: Family history is noncontributory for this admission, and there is no family history for end-stage renal disease. REVIEW OF SYSTEMS: The patient had fever, chills and shivering during dialysis yesterday. Prior to this, she was seen in the emergency room 2 days ago with low grade fever and not feeling well. She was started on antibiotic for possible UTI. Ears, nose and throat are unremarkable. Cardiovascular system is significant for diastolic congestive heart failure. She denies any dyspnea, chest pain or leg edema. Respiratory system is negative for hemoptysis or cough. Gastrointestinal (GI) system is negative for vomiting or diarrhea. Genitourinary () system is significant for UTI on her urinalysis. She denies any flank pain or hematuria. Musculoskeletal system is significant for chronic degenerative arthritis. Hematological system is significant for anemia of chronic kidney disease. Endocrine system is significant for hypothyroidism, secondary hyperparathyroidism and type 2 diabetes. Psychosocial system is negative for depression or anxiety. Neurological system negative for seizures or stroke. PHYSICAL EXAMINATION: The patient is seen in the emergency room where she is still waiting for a bed. Her temperature is 98.8 degrees Fahrenheit, heart rate 80 per minute and respiratory rate 20 per minute. Blood pressure 148/60 mmHg and oxygen saturation 100% on 2 liters of oxygen. Head is atraumatic. Neck is supple and without jugular venous distention (JVD) or thyroid enlargement. Heart sounds are regular and lungs clear to auscultation. Abdomen is soft and nontender. Bowel sounds are normal. Extremities have no cyanosis or clubbing. She has an AV fistula in her left upper arm. She had a dressing on the antecubital fossa area where she had angioplasty done several days ago and I removed the dressing. There is no drainage of bleeding. She has a Perma-Cath on right upper chest without any drainage or bleeding. Neurologically she is awake, alert and oriented times three. LABORATORY DATA: WBC count is 13.0, hemoglobin 10.6 and hematocrit 32.9. Sodium 137, potassium 3.2, CO2 of 31, BUN 18 and creatinine 2.49. Lactic acid was 1.2 and calcium 7.5. Respiratory panel was negative. A urine culture is pending from 2 days ago. She also had blood cultures drawn in outpatient dialysis clinic, which are still pending. PROBLEM #1: Fever and chills. Concerned about possibility of sepsis related to hemodialysis catheter. The patient was given vancomycin 1 gram after dialysis last evening, and her vancomycin level this morning is 13.2. I will give her another dose of 500 mg of vancomycin today and then after next dialysis. She has already been on levofloxacin as an outpatient. She is also been started on Zosyn 2.25 grams every 12 hours. PROBLEM #2: End-stage renal disease. The patient did complete her dialysis treatment prior to admission and will be scheduled for next dialysis on Tuesday. There is no emergent need for dialysis today. PROBLEM #3: Hypokalemia. Her potassium was slightly low, but those labs were drawn right after her dialysis treatment. We will check her chemistry again tomorrow morning. At this point, I will hold off on potassium supplement. Thank you for involving me in the care of Mrs. Duran. I will follow her along with you.
[2018-05-27] MEDS ORDERED: VANCOMYCIN HCL 500 MG in D5W MINI-BAG PLUS 100 ML IV ONE (13:00)
--- NOTE | 2018-05-27 14:50 | PHACANCOPD ---
PHARMACY VANCOMYCIN DOSING Pt Demographics Demographics Patient Age:67 , Weight:84.000 , Gender: female Adjusted Body Weight Date: 05/27/18, Adjusted Body Weight: Kg Vancomycin Vancomycin indication: SEPSIS/UIT Vancomycin Target Ranges: 10-20 mcg/ml Vancomycin Load Y/N: No Load Dose Date Time Vancomycin Load Dose: Date: Time: Vancomycin Dose 05/27 - extra 500mg given - con't vanco 1gm after HD Date: 05/27/18. Current Vancomycin Dose: [1 GRAM HD] Intermittent Dosing?: No Labs Labs Vital Signs Label Value Date Time Patient Temperature 99.6 degrees F 05/27/18 1216 Temperature Source Oral 05/27/18 1216 Item Value Date Time White Blood Count 13.0 10^3/uL H 05/26/182158 Creatinine 2.49 MG/DL H 05/26/182158 Micro Microbiology 05/27/18 MRSA Screen, Received Pending 05/27/18 Respiratory Virus Panel (PCR) ([facility]) - Final, Complete Creatinine Clearance Date:05/27/18. Creatinine Clearance: [23.8]CALCULATED POST DIALYSIS. Assessment and Plan Maintaining Current Dose?: Yes Reason for dose change: Trough too low Pharmacist Note Pharmacist Note 05/27: Patient's random came back at 13.[address] Marcial ordered an additional 500mg of Vancomycin this morning. No labs were drawn this morning but patient had an elevated WBC yesterday of 13, and she has been running fevers (tmax 102 at dialysis yesterday). She has a procalcitonin and MRSA screen pending. Patient has no history of MRSA or Vancomycin use at our facility. We will continue to monitor and make adjustments as necessary. Date: 05/27/18. Pharmacist note:67 YOF-[facility].HT;59",84KG;SCR=2.49 ;cALCULATED crcl=23.8.. ordered Pip/Tazo 2.25 grams IV Q12h and vancomycin per Pharmacy dosing protocol.Will administer Van comycin post dialysis days(MWF)-will continue to follow [facility] May 27, 2018 14:50
[2018-05-27] MEDS: **VANCO AFTER HD** MISC XX SCH (16:00)
[2018-05-27] MEDS: ACETAMINOPHEN 500 MG TAB PO PRN (21:05)
[2018-05-28] MEDS: PIPERACILLIN/TAZOBACTAM SOD 2.25 GM in D5W MINI-BAG PLUS 50 ML IV SCH ×2 (00:27→13:11)
[2018-05-28] MEDS: IPRATROPIUM 0.5MG/ALBUTEROL 2.5MG INH SOL UD 3ML (DUONEB)(J7620) NEB SCH ×4 (02:00→20:00)
[2018-05-28] MEDS: LEVOTHYROXINE 112MCG TABLET (0.112MG) PO SCH (06:17)
[2018-05-28] MEDS: HEPARIN SOD (PORCINE) 5000 UNITS/ML VIAL SC SCH ×3 (06:17→20:35)
[2018-05-28] MEDS: HumaLOG INSULIN (NovoLOG) PER UNIT SC SCH ×4 (06:54→20:34)
[2018-05-28 07:05] LABS: HEMATOCRIT 28.7 % (36.0-47.0); HEMOGLOBIN 9.2 g/dl (12.0-15.5); MEAN CORPUSCULAR HEMOGLOBIN 29.1 pg (27.0-33.0); MEAN CORPUSCULAR HGB CONC 32.1 g/dl (32.0-36.5); MEAN CORPUSCULAR VOLUME 90.8 fl (80.0-96.0); PLATELET COUNT, AUTOMATED 190 10^3/uL (150-450); RED BLOOD COUNT 3.16 10^6/uL (4.00-5.40); WHITE BLOOD COUNT 7.4 10^3/uL (4.0-10.0)
[2018-05-28 07:39] LABS: ALBUMIN 2.1 GM/DL (3.2-5.2); CALCIUM LEVEL 7.7 MG/DL (8.8-10.2); CREATININE FOR GFR 3.81 MG/DL (0.55-1.30); GLOMERULAR FILTRATION RATE 12.5 (>45); PHOSPHORUS LEVEL 3.5 MG/DL (2.5-4.9); POTASSIUM SERUM 3.1 MEQ/L (3.5-5.1)
[2018-05-28] MEDS ORDERED: POTASSIUM CHLORIDE 10 MEQ SR TABLET PO ONE (08:00)
[2018-05-28] MEDS: ASPIRIN 81 MG ENTERIC TAB PO SCH (08:10)
[2018-05-28] MEDS: VITAMIN D 1,000 INTERNATIONAL UNITS TABLET PO SCH (08:10)
[2018-05-28] MEDS: ATORVASTATIN 20 MG TAB PO SCH (08:11)
[2018-05-28] MEDS: OMEPRAZOLE 20 MG CAP PO SCH (08:11)
[2018-05-28] MEDS: SYMBICORT 80/4.5MCG INHALER 6GM INH SCH ×2 (08:30→21:09)
--- NOTE | 2018-05-28 09:07 | REP ---
Portable chest, 10:06 p.m., single AP view, the patient is upright: Comparison is 05/25/2018. The cardiac size is enlarged and the cardiac apex obscures the left costophrenic angle. This is unchanged. The visualized left lung is clear. Right lung is clear. There is a right IJ dual lumen central venous catheter with the tip at the confluence of the superior vena cava and right atrium, unchanged. There is advanced deforming arthropathy of the left shoulder, unchanged. Impression: There is no interval change. Electronically Signed by Ronny Muñoz MD 05/27/2018 07:46 A
[2018-05-28] MEDS: **VANCO AFTER HD** MISC XX SCH (16:00)
[2018-05-28 16:45] VITALS: BP 144/62
--- NOTE | 2018-05-28 17:20 | IPNPDOC ---
Subjective Date Seen The patient was seen on 05/28/18. Subjective Chief Complaint/HPI The patient is a 67 year-old female with a history chronic diastolic congestive heart failure, coronary artery disease status and ESRD on HD who was sent to the ER from dialysis after she was noted to be hypotensive and febrile Events since last encounter The patient reports she is feeling better. Denies anyone and fevers/chills or sweats. No nausea or vomiting. Tolerating oral intake. Denies abdominal pain. Denies constipation. Has been urinatingdenies any dysuria. Reports she was a little dizzy/unsteady when she got up but seemed to do okay with assistance and was able to ambulate okay with assistance. No chest pain or shortness of breath. Objective Physical Examination General Exam: Positive: Alert, Cooperative, No Acute Distress, Other (lying in bed) ENT Exam: Positive: Atraumatic, Mucous membr. moist/pink Chest Exam: Positive: Clear to auscultation, Other (area of suture above right HD catheter siteminimal erythema and able to express very small amount of purulent discharge. HD catheter site itself has dressing in place and appears normal to inspection.); Negative: Rales, Rhonchi Heart Exam: Positive: Rate Normal, Normal S1, Normal S2 Abdomen Exam: Positive: Soft; Negative: Tenderness Extremity Exam: Positive: Normal pulses Neuro Exam: Positive: Other (awake, alert, answering questions appropriately) Psych Exam: Positive: Mental status NL Assessment /Plan Assessment Sepsis secondary to E coli urinary tract infection present on admission with dayami led outpatient treatment: -Continue D2 of IV vancomycin and Zosyn -Urine Cx shows pansensitive E coli -Discussed with Dr. Marcial regarding the small amount of purulent material that was expressed from the wound above the site of HD cath: I request to send the material for culture. -We will consult ID to evaluate regarding possible catheter infection -Blood cultures were sent at dialysis and should hopefully be back by tomorrow -Blood pressure normal -Fevers have resolved -Respiratory virus panel negative -Off IV fluids End-stage renal disease on hemodialysis : -Last hemodialysis was on Tuesday -HD per nephrology Coronary disease status post stenting in 2013: -Continue aspirin and statin Diabetes Mellitus type 2: -Continue sliding insulin -Holding basal insulin - may resume if oral intake is good and fingersticks are higher - fasting sugar this morning was only 86 Asthma, stable -Continue Symbicort, nebs Chronic Diastolic CHF -Watch for any fluid overload. Dyslipidemia -Continue atorvastatin GERD -Continue omeprazole Hypothyroidism -Continue levothyroxine DVT PPx: sc heparin Dispo: Continue IV antibiotics. We will need to consult ID tomorrow given c oncern regarding possible HD catheter infection. PT/OT evaluation to determine eventual disposition. Plan/VTE VTE Prophylaxis Ordered?: Yes VS, I&O, 24H, Fishbone Vital Signs/I&O Vital Signs Date Time Temp Pulse Resp B/P (MAP) Pulse Ox O2 Delivery O2 Flow Rate FiO2 05/28/18 15:10 98.2 74 20 134/62 (86) 100 Room Air 05/28/18 04:00 2.0 I&O- Last 24 Hours up to 6 AM 05/28/18 06:00 Intake Total 50 ml Output Total 300 ml Balance -250 ml Laboratory Data 24H LABS Laboratory Tests 2 05/27/18 17:51: Bedside Glucose (Misc Panel) 164H 05/27/18 20:56: Bedside Glucose (Misc Panel) 221H 05/27/18 23:40: Bedside Glucose (Misc Panel) 203H 05/28/18 06:54: Nucleated Red Blood Cells % (auto) 0.0, Blood Urea Nitrogen 33#H, Creatinine 3.81#H, Sodium Level 137, Potassium Level 3.1L, Chloride Level 102, Carbon Dioxide Level 27, Anion Gap 8, Glomerular Filtration Rate 12.5L, Calcium Level 7.7L, Phosphorus Level 3.5, Albumin 2.1L 05/28/18 12:04: Bedside Glucose (Misc Panel) 206H CBC/BMP Laboratory Tests 05/28/18 06:54 Red Blood Count 3.16 L, Mean Corpuscular Volume 90.8, Mean Corpuscular Hemoglobin 29.1, Mean Corpuscular Hemoglobin Concent 32.1, Red Cell Distribution Width 16.3 H, Anion Gap 8 Microbiology Microbiology 05/27/18 MRSA Screen - Final, Complete 05/27/18 Respiratory Virus Panel (PCR) ([facility]) - Final, Complete 05/28/18 Gram Stain, Received Pending 05/28/18 Wound Culture, Received Pending PRITESH PRATT MD May 28, 2018 17:20
[2018-05-28 20:00] VITALS: BP 125/53
--- NOTE | 2018-05-28 20:34 | ECGEPIP ---
Stationary ECG Study [facility] - ED Test Date: 2018-05-26 Pat Name: MARYBETH HERNADEZ Department: Room: [place] [address] Gender: F Duck Operator: ANTHONY : 1950 Requested By: KVNG Tristan Order Number: [id number] Reading MD: Lynn Womack Measurements Intervals [place] Rate: 87 P: 68 MA: 146 QRS: -24 QRSD: 152 T: 141 QT: 429 QTc: 517 Interpretive Statements SINUS RHYTHM WITH OCCASIONAL SUPRAVENTRICULAR PREMATURE COMPLEXES LEFT BUNDLE BRANCH BLOCK INCREASED RATE 05/09/18 Electronically Signed On 05-28-2018 20:33:51 EDT by Lynn Womack
[2018-05-28 23:59] VITALS: BP 129/71
[2018-05-29] MEDS: IPRATROPIUM 0.5MG/ALBUTEROL 2.5MG INH SOL UD 3ML (DUONEB)(J7620) NEB SCH ×5 (02:00→20:00)
[2018-05-29 04:00] VITALS: BP 152/64
[2018-05-29 05:23] LABS: BASO % 0.3 % (0.0-1.0); EOS # 0.2 10^3/uL (0.0-0.50); EOS % 2.1 % (0.0-3.0); HEMATOCRIT 29.3 % (36.0-47.0); HEMOGLOBIN 9.6 g/dl (12.0-15.5); LYMPH # 1.2 10^3/uL (1.5-4.5); LYMPH % 13.1 % (24.0-44.0); MEAN CORPUSCULAR HEMOGLOBIN 29.7 pg (27.0-33.0); MEAN CORPUSCULAR HGB CONC 32.8 g/dl (32.0-36.5); MEAN CORPUSCULAR VOLUME 90.7 fl (80.0-96.0); MONO # 0.9 10^3/uL (0.0-0.8); MONO % 9.8 % (0.0-5.0); NEUTROPHILS # 6.8 10^3/uL (1.8-7.7); NEUTROPHILS % 74.2 % (36.0-66.0); PLATELET COUNT, AUTOMATED 213 10^3/uL (150-450); RED BLOOD COUNT 3.23 10^6/uL (4.00-5.40); WHITE BLOOD COUNT 9.1 10^3/uL (4.0-10.0)
[2018-05-29] MEDS: LEVOTHYROXINE 112MCG TABLET (0.112MG) PO SCH (06:00)
[2018-05-29] MEDS: HEPARIN SOD (PORCINE) 5000 UNITS/ML VIAL SC SCH ×3 (06:11→20:28)
[2018-05-29] MEDS: HumaLOG INSULIN (NovoLOG) PER UNIT SC SCH ×4 (06:11→20:21)
[2018-05-29] MEDS: ATORVASTATIN 20 MG TAB PO SCH (06:12)
[2018-05-29] MEDS: ASPIRIN 81 MG ENTERIC TAB PO SCH (06:12)
[2018-05-29] MEDS: VITAMIN D 1,000 INTERNATIONAL UNITS TABLET PO SCH (06:12)
[2018-05-29] MEDS: OMEPRAZOLE 20 MG CAP PO SCH (06:12)
[2018-05-29 06:14] LABS: CALCIUM LEVEL 7.7 MG/DL (8.8-10.2); CREATININE FOR GFR 4.01 MG/DL (0.55-1.30); GLOMERULAR FILTRATION RATE 11.8 (>45); MAGNESIUM LEVEL 1.7 MG/DL (1.8-2.4); PHOSPHORUS LEVEL 2.8 MG/DL (2.5-4.9); POTASSIUM SERUM 3.9 MEQ/L (3.5-5.1)
[2018-05-29] MEDS ORDERED: MAGNESIUM OXIDE 400 MG TAB (MAG-OX) PO ONE (07:45)
[2018-05-29 08:00] VITALS: BP 158/78
--- NOTE | 2018-05-29 08:26 | IPN ---
DATE: 05/28/2018 Mrs. Duran is seen this morning on her bedside in the emergency room. She is still waiting for a floor bed. She is feeling better and denies any nausea, vomiting, dyspnea or chest pain. She is currently being treated for UTI and fever with broad-spectrum antibiotics. She was also given vancomycin 1 gram after dialysis on Tuesday and another dose of 500 mg yesterday. She has been on Zosyn 2.25 grams every 12 hours. She had fever up to 102 degrees Fahrenheit and shivering and chills on the day of admission. Since then, her fever has resolved and she denies any shivering or chills. PHYSICAL EXAMINATION: Temperature 97.2 degrees Fahrenheit, heart rate 70 per minute and respiratory rate 20 per minute. Blood pressure 140/64 mmHg and oxygen saturation 99% on room air. Head is atraumatic. Neck is supple and JVD is not abnormally elevated. She has no oral thrush or ulcers. Heart sounds are regular and lungs clear to auscultation. Abdomen is soft and nontender and without palpable organomegaly. Bowel sounds are normal. Extremities have no cyanosis or clubbing. Neurologically she is awake, alert and oriented times three. Today's labs show sodium 137, potassium 3.1, CO2 27, BUN 33 and creatinine 3.81. Albumin is 2.1. WBC count is 7.4, hemoglobin 9.2 and hematocrit 28.7. PROBLEMS: 1. End-stage renal disease. The patient was dialyzed on Tuesday prior to admission and we will go ahead and schedule her for dialysis tomorrow. We will reevaluate her tomorrow morning and see how she is doing. 2. Hypokalemia related to decreased oral intake and dialysis. It is likely to correct once she starts eating a regular diet. She has been given one dose of potassium supplement this morning and electrolytes should be checked again tomorrow morning. 3. Anemia. Her anemia did get worse since admission, probably related to hemodilution. Admission labs were drawn shortly after dialysis, at a time when she was most likely hemoconcentrated. Her CBC will be checked tomorrow morning and we will consider to give her Aranesp if needed during dialysis. 4. UTI and fever. There is no other obvious source of her fever. I was concerned about the possibility of bacteremia related to PermaCath. We covered her with vancomycin and will follow-up on the blood cultures that were drawn as an outpatient on Tuesday in dialysis clinic. She remains on Zosyn for now 2.25 grams for UTI. Her leukocytosis has resolved.
[2018-05-29] MEDS ORDERED: SLF 3 ML SYR IV PRN (11:00)
[2018-05-29 12:00] VITALS: BP 140/78
[2018-05-29] MEDS: PIPERACILLIN/TAZOBACTAM SOD 2.25 GM in D5W MINI-BAG PLUS 50 ML IV SCH ×3 (12:54)
[2018-05-29] MEDS: SYMBICORT 80/4.5MCG INHALER 6GM INH SCH ×2 (13:51→21:18)
[2018-05-29] MEDS: SLF 3 ML SYR IV SCH ×2 (14:51→20:28)
[2018-05-29 16:00] VITALS: BP 138/68
[2018-05-29] MEDS: **VANCO AFTER HD** MISC XX SCH (18:02)
--- NOTE | 2018-05-29 18:09 | IPNPDOC ---
Subjective Date Seen The patient was seen on 05/29/18. Subjective Chief Complaint/HPI The patient is a 67 year-old female with a history chronic diastolic congestive heart failure, coronary artery disease status and ESRD on HD who was sent to the ER from dialysis after she was noted to be hypotensive and febrile Events since last encounter The patient reports she is doing well. Denies anyone and Prilosec fevers chills or sweats. Denies any nausea or vomiting. Reports a little dizziness as well as some dyspnea with exertion and standing up. No abdominal pain. Denies any constipation. Denies dysuria. Objective Physical Examination General Exam: Positive: Alert, Cooperative, No Acute Distress, Other (lying in bed) ENT Exam: Positive: Atraumatic, Mucous membr. moist/pink Chest Exam: Positive: Other (very slight basilar crackles.); Negative: Rales, Rhonchi Heart Exam: Positive: Rate Normal, Normal S1, Normal S2 Abdomen Exam: Positive: Soft; Negative: Tenderness Extremity Exam: Positive: Normal pulses Skin Exam: Positive: Other skin issue (right permacath site of her chest appears intact with dressing in place. Area of suturing about the site shows minimal erythema. No purulence expressible today.) Neuro Exam: Positive: Other (awake, alert, answering questions appropriately) Psych Exam: Positive: Mental status NL Assessment /Plan Assessment Sepsis secondary to E coli urinary tract infection present on admission with failed outpatient treatment: -Continue D3 of IV vancomycin and Zosyn -Urine Cx shows pansensitive E coli -Per discussion nephrologyconcern is that she may have infection involving the permacath -Plan to attempt hemodialysis through her AV fistula site todayif successful, may be able to discontinue the permacath -Cultures sent from hemodialysis prior to presentation to the hospital were pendingresults were not available as of this morning -Discussed with IDDr. Beth. She'll be seeing the patient tomorrow to make recommendations regarding antibiotics -Hemodynamically stable -Fevers have resolved -Respiratory virus panel negative -Off IV fluids End-stage renal disease on hemodialysis : -Patient to undergo dialysis today -HD per nephrology Coronary disease status post stenting in 2013: -Continue aspirin and statin Diabetes Mellitus type 2: -Continue sliding insulin -Holding basal insulin - may resume if fingersticks are highercurrently 150-170 range Asthma, stable -Continue Symbicort, nebs Chronic Diastolic CHF -Watch for any fluid overload. Dyslipidemia -Continue atorvastatin GERD -Continue omeprazole Hypothyroidism -Continue levothyroxine DVT prophylaxis: -Subcutaneous heparin Plan/VTE VTE Prophylaxis Ordered?: Yes VS, I&O, 24H, Fishbone Vital Signs/I&O Vital Signs Date Time Temp Pulse Resp B/P (MAP) Pulse Ox O2 Delivery O2 Flow Rate FiO2 05/29/18 12:00 97.9 87 17 140/78 (98) 97 05/28/18 15:10 Room Air 05/28/18 04:00 2.0 I&O- Last 24 Hours up to 6 AM 05/29/18 06:00 Intake Total 770 ml Output Total 455 ml Balance 315 ml Laboratory Data 24H LABS Laboratory Tests 2 05/28/18 20:34: Bedside Glucose (Misc Panel) 140H 05/29/18 05:04: Immature Granulocyte % (Auto) 0.5, White Blood Count 9.1, Red Blood Count 3.23L, Hemoglobin 9.6L, Hematocrit 29.3L, Mean Corpuscular Volume 90.7, Mean Corpuscular Hemoglobin 29.7, Mean Corpuscular Hemoglobin Concent 32.8, Red Cell Distribution Width 16.6H, Platelet Count 213, Neutrophils (%) (Auto) 74.2H, Lymphocytes (%) (Auto) 13.1L, Monocytes (%) (Auto) 9.8H, Eosinophils (%) (Auto) 2.1, Basophils (%) (Auto) 0.3, Neutrophils # (Auto) 6.8, Lymphocytes # (Auto) 1.2L, Monocytes # (Auto) 0.9H, Eosinophils # (Auto) 0.2, Basophils # (Auto) 0.0, Nucleated Red Blood Cells % (auto) 0.0, Anion Gap 7L, Glomerular Filtration Rate 11.8L, Blood Urea Nitrogen 37H, Creatinine 4.01H, Sodium Level 138, Potassium Level 3.9#, Chloride Level 105, Carbon Dioxide Level 26, Calcium Level 7.7L, Ph osphorus Level 2.8, Magnesium Level 1.7L, Random Vancomycin Level 12.0 05/29/18 11:17: Bedside Glucose (Misc Panel) 177H 05/29/18 17:47: Bedside Glucose (Misc Panel) 157H CBC/BMP Laboratory Tests 05/29/18 05:04 Red Blood Count 3.23 L, Mean Corpuscular Volume 90.7, Mean Corpuscular Hemoglobin 29.7, Mean Corpuscular Hemoglobin Concent 32.8, Red Cell Distribution Width 16.6 H, Neutrophils (%) (Auto) 74.2 H, Lymphocytes (%) (Auto) 13.1 L, Monocytes (%) (Auto) 9.8 H, Eosinophils (%) (Auto) 2.1, Basophils (%) (Auto) 0.3, Neutrophils # (Auto) 6.8, Lymphocytes # (Auto) 1.2 L, Monocytes # (Auto) 0.9 H, Eosinophils # (Auto) 0.2, Basophils # (Auto) 0.0, Calcium Level 7.7 L Microbiology Microbiology 05/27/18 MRSA Screen - Final, Complete 05/27/18 Respiratory Virus Panel (PCR) ([facility]) - Final, Complete 05/28/18 Gram Stain - Final, Resulted 05/28/18 Wound Culture, Resulted Pending PRITESH PRATT MD May 29, 2018 18:09
[2018-05-29 20:00] VITALS: BP 148/69
[2018-05-29 22:35] VITALS: BP 149/66
[2018-05-30] MEDS: ACETAMINOPHEN 500 MG TAB PO PRN (01:05)
[2018-05-30] MEDS: IPRATROPIUM 0.5MG/ALBUTEROL 2.5MG INH SOL UD 3ML (DUONEB)(J7620) NEB SCH ×3 (01:28→13:58)
[2018-05-30] MEDS: PIPERACILLIN/TAZOBACTAM SOD 2.25 GM in D5W MINI-BAG PLUS 50 ML IV SCH ×2 (01:51→12:33)
[2018-05-30] MEDS: SLF 3 ML SYR IV SCH ×2 (05:32→14:00)
[2018-05-30] MEDS: HEPARIN SOD (PORCINE) 5000 UNITS/ML VIAL SC SCH ×2 (05:32→15:37)
[2018-05-30] MEDS: LEVOTHYROXINE 112MCG TABLET (0.112MG) PO SCH (05:32)
[2018-05-30 06:00] VITALS: BP 157/70
[2018-05-30 07:00] LABS: BASO # 0.1 10^3/uL (0.0-0.2); BASO % 0.5 % (0.0-1.0); EOS # 0.2 10^3/uL (0.0-0.50); EOS % 1.5 % (0.0-3.0); HEMATOCRIT 28.4 % (36.0-47.0); HEMOGLOBIN 9.1 g/dl (12.0-15.5); LYMPH # 1.9 10^3/uL (1.5-4.5); LYMPH % 17.5 % (24.0-44.0); MEAN CORPUSCULAR HEMOGLOBIN 28.6 pg (27.0-33.0); MEAN CORPUSCULAR VOLUME 89.3 fl (80.0-96.0); MONO # 1.1 10^3/uL (0.0-0.8); NEUTROPHILS # 7.7 10^3/uL (1.8-7.7); NEUTROPHILS % 69.9 % (36.0-66.0); PLATELET COUNT, AUTOMATED 222 10^3/uL (150-450); RED BLOOD COUNT 3.18 10^6/uL (4.00-5.40)
[2018-05-30 07:22] LABS: CALCIUM LEVEL 8.4 MG/DL (8.8-10.2); CREATININE FOR GFR 2.83 MG/DL (0.55-1.30); GLOMERULAR FILTRATION RATE 17.7 (>45); MAGNESIUM LEVEL 1.8 MG/DL (1.8-2.4); PHOSPHORUS LEVEL 2.9 MG/DL (2.5-4.9); POTASSIUM SERUM 3.3 MEQ/L (3.5-5.1)
[2018-05-30] MEDS: SYMBICORT 80/4.5MCG INHALER 6GM INH SCH (07:58)
--- NOTE | 2018-05-30 08:26 | IPN ---
DATE: 05/29/2018 Ms. Duran is seen this afternoon on her bedside during dialysis. I had seen her this morning also. She has been feeling well and fever and chills have completely resolved. Her blood cultures drawn in the outpatient dialysis clinic have been reported negative so far. She denies any nausea, vomiting, fever or chills. She does get some dyspnea on exertion. On physical examination, temperature 98.4 degrees Fahrenheit, heart rate 80 per minute and respiratory rate 17 per minute. Blood pressure 158/78 mmHg and oxygen saturation 96% on room air. Head is atraumatic. Neck is supple and without jugular venous distention (JVD) or thyroid enlargement. Heart sounds are irregular in rhythm. Lungs have slightly diminished breath sounds bilaterally. Abdomen obese, soft and nontender. Extremities have no cyanosis or clubbing. Left arm AV fistula is patent and seems ready for use. She also has a Perma-Cath in right upper chest. Today's labs show WBC count 9.1, hemoglobin 9.6 and hematocrit 29.3. Platelets 213. Sodium 138, potassium 3.9, CO2 26, BUN 37 and creatinine 4.01. Glucose 168 and calcium 7.7. PROBLEMS: 1. End-stage renal disease. The patient is being dialyzed today and we tried to use her left arm AV fistula which is working reasonably well. At this point, she still has a Perma-Cath and we would like to remove it as soon as her fistula function stabilizes. She is tolerating her dialysis treatment well. 2. Fever and chills. She did have a urinary tract infection (UTI) and blood cultures drawn in outpatient clinic have been negative so far. I do not feel that she has bacteremia. Her leukocytosis has resolved. She remains on Zosyn and vancomycin. 3. Anemia. Her anemia has been mild and stable and does not need any urgent intervention. 4. Hypokalemia. Her potassium level was low yesterday but has now improved. She will be dialyzed today with 3.0 mEq potassium bath. Her electrolytes will be checked tomorrow. 5. Disposition. I have feel that if the patient remains afebrile for the next 24 hours and blood cultures remain negative, she can probably be discharged to home and follow up at outpatient clinic. If her AV fistula could be used for next week during dialysis, then will consider to get her Perma-Cath removed.
[2018-05-30] MEDS: HumaLOG INSULIN (NovoLOG) PER UNIT SC SCH ×3 (08:47→17:49)
[2018-05-30] MEDS: OMEPRAZOLE 20 MG CAP PO SCH (08:47)
[2018-05-30] MEDS: VITAMIN D 1,000 INTERNATIONAL UNITS TABLET PO SCH (08:47)
[2018-05-30] MEDS: ATORVASTATIN 20 MG TAB PO SCH (08:47)
[2018-05-30] MEDS: ASPIRIN 81 MG ENTERIC TAB PO SCH (08:47)
[2018-05-30] MEDS ORDERED: LIDOCAINE 2% MDV 20 ML VIAL As Ordered ONE (10:53)
--- NOTE | 2018-05-30 12:49 | IPN ---
DATE OF SERVICE: 05/30/2018 SUBJECTIVE: The patient seen and examined this morning at the bedside. Denies any acute overnight events or issues. She was successfully dialyzed yesterday via her fistula. Her fistula has also been examined by vascular surgery (Dr. Benito), and plan is for PermCath removal this afternoon. She remains afebrile and has no new complaints. Tolerated her treatment yesterday. A review of intake and output yesterday shows net negative 1 liter. Weight in the bed scale today is not recorded. General: The patient is seen lying in bed. Elderly obese female. Comfortable. No acute distress. Extraocular muscles are intact. Tongue is moist. Neck is supple. Jugular veins are not elevated. Heart sounds are regular. S1, S2. There is symmetric air entry bilaterally. No crackle or rales. The abdomen is obese, soft, and there is no tenderness. The left upper extremity fistula is patent with thrill and bruit. The right PermCath has a dressing. The lower extremities are negative for edema or cyanosis. LABORATORIES: White count 11.0, hemoglobin 9.1, platelets 222. Sodium 137, potassium 3.3, bicarbonate 28, magnesium 1.8. INPATIENT MEDICATIONS: Reviewed by me and no change from prior. PROBLEMS: 1. End-stage renal disease. On hemodialysis on a Tuesday, Tuesday, Tuesday schedule. She was dialyzed yesterday successfully via her fistula. She did have fistuloplasty about a week ago, and her fistula was examined by vascular surgery today and deemed appropriate for use, and plan is for PermCath removal later on this afternoon. Her electrolytes and volume status are otherwise reasonable, and no change is being made to her chronic dialysis prescription. 2. Fevers and leukocytosis, Escherichia (E.) coli urinary tract infection (UTI), and concern for possible PermCath-associated infection. The patient is presently on broad-spectrum antibiotics. Plan is for PermCath removal later today, and she can be switched over to oral antibiotics. The primary team is in discussion with infectious disease regarding antibiotic management and the duration thereof. The patient remains afebrile, and outpatient hemodialysis blood cultures have been negative. 3. Diastolic congestive heart failure. The patient's volume status is regulated by dialysis and is acceptable. She continues on oral fluid restriction and is tolerating fluid removal without issue. 4. Anemia. This is mild and stable, and the patient will continue with Aranesp in the outpatient setting. DISPOSITION: The patient is for PermCath removal this afternoon. Her antibiotics are to be addressed by infectious disease, and she can likely be discharged on an oral regimen.
[2018-05-30 14:00] VITALS: BP 169/70
[2018-05-30] MEDS: **VANCO AFTER HD** MISC XX SCH (16:00)
[2018-05-30] MEDS ORDERED: TRES100I SC (18:05)
--- NOTE | 2018-05-30 18:17 | DS.PDOC ---
Discharge Summary General Date of Admission May 26, 2018 at 22:36 Date of Discharge 05/30/2018 Discharge Summary PROCEDURES PERFORMED DURING STAY: Removal of permacath by Dr. Benito ADMITTING DIAGNOSES: Sepsis possibly 2/2 UTI, s/p failure of outpatient Abx therapy ESRD on HD (M,W,F) CAD s/p Stenting in 2013 Diabetes Mellitus Asthma, stable Hx of Diastolic CHF Dyslipidemia GERD Hypothyroidism DISCHARGE DIAGNOSES: Sepsis secondary to E coli urinary tract infection present on admission with failed outpatient treatment as well as MSSA tunnel infection due to his post removal of permacath on 05/30/[address] Benito End-stage renal disease on hemodialysis Coronary disease status post stenting in 2013 Diabetes Mellitus type 2 Asthma, stable Chronic Diastolic CHF Dyslipidemia GERD Hypothyroidism COMPLICATIONS/CHIEF COMPLAINT: UTI. HISTORY OF PRESENT ILLNESS: The patient is a 67-year-old female with a history of end-stage renal disease and hemodialysis were initially present to the ER diagnosed with UTI sent him on oral antibiotics but on subsequent day of dialysis had developed fever of 10 2F as well as hypotension sent back to the ER found to be in sepsis secondary to urinary tract infection with failed outpatient treatment admitted to the hospital for further management of same. HOSPITAL COURSE: Sepsis secondary to E coli urinary tract infection present on admission with failed outpatient treatment: -Patient was treated with IV vancomycin and Zosyn -Urine Cx shows pansensitive E coli -Per discussion nephrologyconcern is that she may have infection involving the permacath -Cultures of purulent drainage from the permacath tunnel head revealed MSSA -Patient was seen in consultation from ID by Dr. Beth -Plan is for patient to get IV cefazolin with dialysis. -Permacath was removed by Dr. Benito today -Patient had hemodialysis done successfully yesterday using her left upper extremity AV fistula site -Hemodynamically stable -Fevers have resolved -Respiratory virus panel negative -Off IV fluids End-stage renal disease on hemodialysis : -Patient to resume dialysis per usual schedule starting tomorrow Coronary disease status post stenting in 2013: -Continue aspirin and statin Diabetes Mellitus type 2: -Was on sliding insulin -We will holding patient's Trulicity, Tresiba as well as scheduled premeal 75/25 insulin -Despite this, fingersticks are running in 150s to 170s range with the highest sugar being 233 this evening. -I will resume patient's Tresiba at 10 units daily (she received only 14 units total on sliding scale yesterday) -I have advised her to increase that to see Clari 10 units daily if fingersticks are consistently over 200s or as advised by her PCP -I will be holding the patient's Trulicity and 75/25 insulin on discharge as also her torsemide, since her oral intake is not yet at baseline Asthma, stable -Continue Symbicort, nebs Chronic Diastolic CHF -Hold torsemide on dischargemay be resumed as outpatient once tolerating oral intake well Dyslipidemia -Continue atorvastatin GERD -Continue omeprazole Hypothyroidism -Continue levothyroxine DISCHARGE MEDICATIONS: Please see below. ALLERGIES: Please see below. PHYSICAL EXAMINATION ON DISCHARGE: VITAL SIGNS: Please see below. GENERAL: Lying in bed. No distress HEENT: PERRLA CARDIOVASCULAR EXAMINATION: S1, S2 heard, no rubs or gallops RESPIRATORY EXAMINATION: Clear to auscultation ABDOMINAL EXAMINATION: Soft, nontender NEUROLOGICAL EXAMINATION: Awake, alert, answering questions appropriately LABORATORY DATA: Please see below. ACTIVITY: As tolerated with walker DIET: Renal diet DISCHARGE PLAN: Patient to be discharged home today. She may resume outpatient dialysis per usual schedule tomorrow. Patient to receive IV cefazolin with dialysis per discussion with Dr. Beth was discussed this with Dr. Marcial DISPOSITION: Home ITEMS TO FOLLOWUP ON ON OUTPATIENT: 1. Up titration of insulin regimen based on blood sugars 2. Resumption of torsemide once tolerating oral intake well DISCHARGE CONDITION: Stable. TIME SPENT ON DISCHARGE: 35 minutes. Vital Signs/I&Os Vital Signs Date Time Temp Pulse Resp B/P (MAP) Pulse Ox O2 Delivery O2 Flow Rate FiO2 05/30/18 14:00 97.3 72 18 169/70 (103) 98 05/28/18 15:10 Room Air 05/28/18 04:00 2.0 I&O- Last 24 Hours up to 6 AM 05/30/18 06:00 Intake Total 1370 ml Output Total 2200 ml Balance -830 ml Laboratory Data Labs 24H Laboratory Tests 2 05/29/18 20:18: Bedside Glucose (Misc Panel) 261H 05/30/18 06:24: Immature Granulocyte % (Auto) 0.6, White Blood Count 11.0H, Red Blood Count 3.18L, Hemoglobin 9.1L, Hematocrit 28.4L, Mean Corpuscular Volume 89.3, Mean Corpuscular Hemoglobin 28.6, Mean Corpuscular Hemoglobin Concent 32.0, Red Cell Distribution Width 16.4H, Platelet Count 222, Neutrophils (%) (Auto) 69.9H, Lymphocytes (%) (Auto) 17.5L, Monocytes (%) (Auto) 10.0H, Eosinophils (%) (Auto) 1.5, Basophils (%) (Auto) 0.5, Neutrophils # (Auto) 7.7, Lymphocytes # (Auto) 1.9, Monocytes # (Auto) 1.1H, Eosinophils # (Auto) 0.2, Basophils # (Auto) 0.1, Nucleated Red Blood Cells % (auto) 0.0, Anion Gap 6L, Glomerular Filtration Rate 17.7L, Blood Urea Nitrogen 27H, Creatinine 2.83H, Sodium Level 137, Potassium Level 3.3L, Chloride Level 103, Carbon Dioxide Level 28, Calcium Level 8.4L, Phosphorus Level 2.9, Magnesium Level 1.8 05/30/18 11:35: Bedside Glucose (Misc Panel) 171H 05/30/18 16:34: Bedside Glucose (Misc Panel) 233H CBC/BMP Laboratory Tests 05/30/18 06:24 Red Blood Count 3.18 L, Mean Corpuscular Volume 89.3, Mean Corpuscular Hemoglobin 28.6, Mean Corpuscular Hemoglobin Concent 32.0, Red Cell Distribution Width 16.4 H, Neutrophils (%) (Auto) 69.9 H, Lymphocytes (%) (Auto) 17.5 L, Monocytes (%) (Auto) 10.0 H, Eosinophils (%) (Auto) 1.5, Basophils (%) (Auto) 0.5, Neutrophils # (Auto) 7.7, Lymphocytes # (Auto) 1.9, Monocytes # (Auto) 1.1 H, Eosinophils # (Auto) 0.2, Basophils # (Auto) 0.1, Calcium Level 8.4 L FSBS Laboratory Tests Test 05/29/18 20:18 05/30/18 11:35 05/30/18 16:34 Range/Units Bedside Glucose (Misc Panel) 261 171 233 80-115 MG/DL Microbiology Microbiology 05/27/18 MRSA Screen - Final, Complete 05/27/18 Respiratory Virus Panel (PCR) (NAWAF) - Final, Complete 05/28/18 Gram Stain - Final, Complete 05/28/18 Wound Culture - Final, Complete Staphylococcus Aureus Discharge Medications Scheduled Aspirin (Aspirin EC) 81 Mg Tab, 81 MG PO DAILY, (Reported) Atorvastatin Calcium (Atorvastatin Calcium) 40 Mg Tab, 40 MG PO DAILY, (Reported) Azelastine HCl (Azelastine HCl) 0.15 % Spr, 1 SPRAY NA BID, (Reported) Budesonide/Formoterol (Symbicort 80-4.5 Mcg Inhaler) 6.9 Gm Hfa.aer.ad, 2 PUFF INH BID, (Reported) Calcitriol (Calcitriol) 0.25 Mcg Cap, 0.25 MCG PO DAILY, (Reported) Cholecalciferol (Vitamin D3) (Vitamin D3) 1,000 Unit Capsule, 1,000 UNIT PO DAILY, (Reported) Ferrous Sulfate (Iron) 325 Mg Tablet, 325 MG PO DAILY, (Reported) Insulin Degludec (Tresiba) 100 Unit/1 Ml Vial, 10 UNIT SC QAM Levothyroxine Sodium (Levothyroxine Sodium) 112 Mcg Tab, 112 MCG PO DAILY, (Reported) Metoprolol Tartrate (Metoprolol Tartrate) 50 Mg Tablet, 50 MG PO BID, (Reported) Omeprazole (Omeprazole) 20 Mg Tab, 20 MG PO DAILY, (Reported) Scheduled PRN Acetaminophen (Acetaminophen) 500 Mg Tablet, 1,000 MG PO Q6H PRN for PAIN, (Reported) Albuterol Sulfate (Ventolin Hfa) 108 Mcg/Act Aer, 2 PUFFS INH QID PRN for SHORTNESS OF BREATH, (Reported) Dextrose (Glucose) 4 Gm Chw, 4 GM PO PRN PRN for BLOOD SUGAR < 50, (Reported) Loperamide HCl (Imodium A-D) 2 Mg Capsule, 2 TAB PO DAILY PRN for DIARRHEA, (Reported) Nitroglycerin (Nitrostat) 0.4 Mg Subl, 0.4 MG SL NITRO PRN for CHEST PAIN, (Reported) Allergies Coded Allergies: cephalexin (Verified Allergy, Severe, RASH, DYSPNEA, 05/09/18) gatifloxacin (Verified Allergy, Severe, RASH, DYSPNEA, 05/09/18) tramadol (Verified Allergy, Severe, RASH, DYSPNEA, 05/09/18) nitrofurantoin (Verified Allergy, Mild, RASH, 05/09/18) latex (Verified Allergy, Unknown, 05/09/18) sulfamethoxazole (Verified Adverse Reaction, Intermediate, EFFECTS KIDNEY FUNCTION, 05/09/18) trimethoprim (Verified Adverse Reaction, Intermediate, EFFECTS KIDNEY FUNCTION, 05/09/18) PRITESH PRATT MD May 30, 2018 18:17
--- NOTE | 2018-05-30 23:44 | CR.PDOC ---
General Date of Consultation: May 30, 2018 Consultation Ms Duran is an 67 year old female who presented to the ED from her routine HD session after she was found to be hypotensive and febrile during her procedure. She apparently had been having episodes of generalized weakness and vomiting prior to that. She had been seen in the ED prior to this admission and was given antibiotics for a UTI. She currently denies any pain with urination, she states she does still make urine. She now feels well, no complaints of SOB or vomiting, her appetite is back to normal she says. No recent muscle aches or chills nor fevers. Past Medical Hx: HTN, DM2, asthma, CHF diastolic, CAD s/p stenting in 2013, ESRD with HD MWF, DLP Surgical History Cataract surgery, appendectomy, carpal tunnel surgery, left upper extremity AV fistula creation and permacath placement ALLERGIES: Please see below. HOME MEDICATIONS: Please see below. SOCIAL HISTORY: She does not smoke, drink nor do drugs. REVIEW OF SYSTEMS: CONSTITUTIONAL: no recent fevers or muscle aches HEENT: no change in vision CARDIOVASCULAR: no chest pain RESPIRATORY: no SOB or cough GENITOURINARY: no pain with urination or blood in urine MUSCULOSKELETAL: no new muscle aches or joint pain GASTROINTESTINAL: no n/v or diarrhea SKIN: no new rashes PHYSICAL EXAMINATION: VITAL SIGNS: Please see below. GENERAL APPEARANCE: plesant and conversant, no distress HEENT: nares patent b/l, no oral lesions, moist mucus membranes RESPIRATORY: no rales or rhonchi or wheezing or crackles appreciated, her chest shows permacath that has some surrounding erythema, no pus or blood exudation, vein does feel slight cord like CARDIOVASCULAR: normal s1 and s2, no murmurs rubs or gallops ABDOMEN: no hepatosplenomegaly, no distension, no pain to palpation, no distension, nabsx4 EXTREMITIES: trace swelling b/l LE LABORATORY DATA: Please see below. ASSESSMENT/PLAN: This is an 67 year old female who was admitted after found to be hypotensive and febrile during her routine HD session. 1. UTI with E.coli -would switch to IV Cefazolin for reasons outlined below and since it is sensitive to the patients E. coli infection, she has received vancomycin, levofloxacin and zosyn this visit. 2. Permacath suppurative thrombophlebitis -this permacath needs to be removed, once removed recommend 14 days of antibiotic therapy which can be with IV Cefazolin as sensitive to both MSSA and the patients E. coli, she can have this antibiotic during her routine outpatient HD sessions. Vital Signs/I&O Vital Signs Date Time Temp Pulse Resp B/P (MAP) Pulse Ox O2 Delivery O2 Flow Rate FiO2 05/30/18 14:00 97.3 72 18 169/70 (103) 98 05/28/18 15:10 Room Air 05/28/18 04:00 2.0 I&O- Last 24 Hours up to 6 AM 05/30/18 05:59 Intake Total 1490 ml Output Total 2400 ml Balance -910 ml Laboratory Data Labs 24H Laboratory Tests 2 05/30/18 06:24: Immature Granulocyte % (Auto) 0.6, White Blood Count 11.0H, Red Blood Count 3.18L, Hemoglobin 9.1L, Hematocrit 28.4L, Mean Corpuscular Volume 89.3, Mean Corpuscular Hemoglobin 28.6, Mean Corpuscular Hemoglobin Concent 32.0, Red Cell Distribution Width 16.4H, Platelet Count 222, Neutrophils (%) (Auto) 69.9H, Lymphocytes (%) (Auto) 17.5L, Monocytes (%) (Auto) 10.0H, Eosinophils (%) (Auto) 1.5, Basophils (%) (Auto) 0.5, Neutrophils # (Auto) 7.7, Lymphocytes # (Auto) 1.9, Monocytes # (Auto) 1.1H, Eosinophils # (Auto) 0.2, Basophils # (Auto) 0.1, Nucleated Red Blood Cells % (auto) 0.0, Anion Gap 6L, Glomerular Filtration Rate 17.7L, Blood Urea Nitrogen 27H, Creatinine 2.83H, Sodium Level 137, Potassium Level 3.3L, Chloride Level 103, Carbon Dioxide Level 28, Calcium Level 8.4L, Phosphorus Level 2.9, Magnesium Level 1.8 05/30/18 11:35: Bedside Glucose (Misc Panel) 171H 05/30/18 16:34: Bedside Glucose (Misc Panel) 233H CBC/BMP Laboratory Tests 05/30/18 06:24 Red Blood Count 3.18 L, Mean Corpuscular Volume 89.3, Mean Corpuscular Hem oglobin 28.6, Mean Corpuscular Hemoglobin Concent 32.0, Red Cell Distribution Width 16.4 H, Neutrophils (%) (Auto) 69.9 H, Lymphocytes (%) (Auto) 17.5 L, Monocytes (%) (Auto) 10.0 H, Eosinophils (%) (Auto) 1.5, Basophils (%) (Auto) 0.5, Neutrophils # (Auto) 7.7, Lymphocytes # (Auto) 1.9, Monocytes # (Auto) 1.1 H, Eosinophils # (Auto) 0.2, Basophils # (Auto) 0.1, Calcium Level 8.4 L Microbiology Microbiology 05/27/18 MRSA Screen - Final, Complete 05/27/18 Respiratory Virus Panel (PCR) (NAWAF) - Final, Complete 05/28/18 Gram Stain - Final, Complete 05/28/18 Wound Culture - Final, Complete Staphylococcus Aureus Allergies Coded Allergies: cephalexin (Verified Allergy, Severe, RASH, DYSPNEA, 05/09/18) gatifloxacin (Verified Allergy, Severe, RASH, DYSPNEA, 05/09/18) tramadol (Verified Allergy, Severe, RASH, DYSPNEA, 05/09/18) nitrofurantoin (Verified Allergy, Mild, RASH, 05/09/18) latex (Verified Allergy, Unknown, 05/09/18) sulfamethoxazole (Verified Adverse Reaction, Intermediate, EFFECTS KIDNEY FUNCTION, 05/09/18) trimethoprim (Verified Adverse Reaction, Intermediate, EFFECTS KIDNEY FUNCTION, 05/09/18) Home Medications Scheduled Aspirin (Aspirin EC) 81 Mg Tab, 81 MG PO DAILY, (Reported) Atorvastatin Calcium (Atorvastatin Calcium) 40 Mg Tab, 40 MG PO DAILY, (Reported) Azelastine HCl (Azelastine HCl) 0.15 % Spr, 1 SPRAY NA BID, (Reported) Budesonide/Formoterol (Symbicort 80-4.5 Mcg Inhaler) 6.9 Gm Hfa.aer.ad, 2 PUFF INH BID for 30 Days, #10.2 (Reported) Calcitriol (Calcitriol) 0.25 Mcg Cap, 0.25 MCG PO DAILY, (Reported) Cholecalciferol (Vitamin D3) (Vitamin D3) 1,000 Unit Capsule, 1,000 UNIT PO DAILY, (Reported) Ferrous Sulfate (Iron) 325 Mg Tablet, 325 MG PO DAILY, (Reported) Insulin Degludec (Tresiba) 100 Unit/1 Ml Vial, 10 UNIT SC QAM, #1 Levothyroxine Sodium (Levothyroxine Sodium) 112 Mcg Tab, 112 MCG PO DAILY, (Reported) Metoprolol Tartrate (Metoprolol Tartrate) 50 Mg Tablet, 50 MG PO BID, (Reported) Omeprazole (Omeprazole) 20 Mg Tab, 20 MG PO DAILY, (Reported) Scheduled PRN Acetaminophen (Acetaminophen) 500 Mg Tablet, 1,000 MG PO Q6H PRN for PAIN, (Reported) Albuterol Sulfate (Ventolin Hfa) 108 Mcg/Act Aer, 2 PUFFS INH QID PRN for SHORTNESS OF BREATH, (Reported) Dextrose (Glucose) 4 Gm Chw, 4 GM PO PRN PRN for BLOOD SUGAR < 50, (Reported) Loperamide HCl (Imodium A-D) 2 Mg Capsule, 2 TAB PO DAILY PRN for DIARRHEA, (Reported) Nitroglycerin (Nitrostat) 0.4 Mg Subl, 0.4 MG SL NITRO PRN for CHEST PAIN, (Reported) GME ATTESTATION GME ATTESTATION My faculty preceptor for this patient encounter was physically present during the encounter and was fully available. All aspects of the patient interview, examination, medical decision making process, and medical care plan development were reviewed and approved by the faculty preceptor. The faculty preceptor is aware and concurs with the plan as stated in the body of this note and will attest to such by his/her cosignature. FLOR ROMO DO May 30, 2018 23:44
== END 2018-05-30 18:53 | disposition home or self-care (01) | DRG 314 ==
LOC: EDBD 21:08 → M ED 21:08 → M ED INP 22:36 → M PCU 05-28 16:45 → M MS4PR 05-29 22:31
PROVIDERS: ADMIT Internal Medicine; ATTEND Internal Medicine
PROC: 5A1D70Z Performance of Urinary Filtration, Intermittent, Less than 6 Hours Per Day (ICD-10-PCS; principal; 2018-05-29)
PROC: 02PY33Z Removal of Infusion Device from Great Vessel, Percutaneous Approach (ICD-10-PCS; 2018-05-30)
DX: T82.7XXA Infection and inflammatory reaction due to other cardiac and vascular devices, implants and grafts, initial encounter (principal); A41.9 Sepsis, unspecified organism; N18.6 End stage renal disease; N39.0 Urinary tract infection, site not specified; I50.32 Chronic diastolic (congestive) heart failure; I13.2 Hypertensive heart and chronic kidney disease with heart failure and with stage 5 chronic kidney disease, or end stage renal disease; I25.10 Atherosclerotic heart disease of native coronary artery without angina pectoris; Z95.2 Presence of prosthetic heart valve; E03.9 Hypothyroidism, unspecified; K21.9 Gastro-esophageal reflux disease without esophagitis; E11.9 Type 2 diabetes mellitus without complications; J45.909 Unspecified asthma, uncomplicated; E78.5 Hyperlipidemia, unspecified; B96.29 Other Escherichia coli [E. coli] as the cause of diseases classified elsewhere; B95.61 Methicillin susceptible Staphylococcus aureus infection as the cause of diseases classified elsewhere; Z79.82 Long term (current) use of aspirin; Z79.899 Other long term (current) drug therapy; Z91.040 Latex allergy status; Z88.8 Allergy status to other drugs, medicaments and biological substances; Z88.2 Allergy status to sulfonamides; Z79.4 Long term (current) use of insulin; D63.1 Anemia in chronic kidney disease; E87.6 Hypokalemia; Y83.1 Surgical operation with implant of artificial internal device as the cause of abnormal reaction of the patient, or of later complication, without mention of misadventure at the time of the procedure

== ENCOUNTER 2018-07-14 12:34 | Emergency (ER) | payer MEDICARE ==
[~2018-07-14 12:34] MED LIST changes: +ACET-683 PO; +D-101000 PO; +IRON65TA2 PO
[2018-07-14] MEDS ORDERED: TIZA4CAP PO (13:06)
[2018-07-14] MEDS ORDERED: HUMA75VL SC (13:06)
[2018-07-14 14:32] VITALS: BP 120/56
== END 2018-07-14 14:35 | disposition home or self-care (01) ==
LOC: EDBD 12:34 → EDUNIT# 12:34 → M ED 12:34
DX: E11.649 Type 2 diabetes mellitus with hypoglycemia without coma (principal); I10 Essential (primary) hypertension; J44.9 Chronic obstructive pulmonary disease, unspecified; N28.9 Disorder of kidney and ureter, unspecified; E07.9 Disorder of thyroid, unspecified; Z79.899 Other long term (current) drug therapy; Z79.890 Hormone replacement therapy; Z79.82 Long term (current) use of aspirin; Z79.4 Long term (current) use of insulin; Z88.1 Allergy status to other antibiotic agents; Z88.2 Allergy status to sulfonamides; Z88.5 Allergy status to narcotic agent; Z88.8 Allergy status to other drugs, medicaments and biological substances; Z91.040 Latex allergy status

== ENCOUNTER 2018-08-05 14:18 | Emergency (ER) | payer MEDICARE ==
[~2018-08-05] VITALS: Ht 142.2 cm; Wt 86.4 kg
[~2018-08-05 14:18] MED LIST changes: +TIZA4CAP PO
[2018-08-05 14:58] LABS: BASO # 0.1 10^3/uL (0.0-0.2); BASO % 0.4 % (0.0-1.0); EOS # 0.2 10^3/uL (0.0-0.50); EOS % 1.1 % (0.0-3.0); HEMATOCRIT 39.6 % (36.0-47.0); HEMOGLOBIN 12.6 g/dl (12.0-15.5); LYMPH # 1.1 10^3/uL (1.5-4.5); LYMPH % 8.1 % (24.0-44.0); MEAN CORPUSCULAR HEMOGLOBIN 31.3 pg (27.0-33.0); MEAN CORPUSCULAR HGB CONC 31.8 g/dl (32.0-36.5); MEAN CORPUSCULAR VOLUME 98.3 fl (80.0-96.0); MONO # 0.8 10^3/uL (0.0-0.8); MONO % 5.4 % (0.0-5.0); NEUTROPHILS # 11.9 10^3/uL (1.8-7.7); NEUTROPHILS % 84.6 % (36.0-66.0); PLATELET COUNT, AUTOMATED 325 10^3/uL (150-450); RED BLOOD COUNT 4.03 10^6/uL (4.00-5.40)
[2018-08-05] MEDS ORDERED: TRUL0.5I SC (15:02)
[2018-08-05 15:34] LABS: BLOOD UREA NITROGEN 49 MG/DL (7-18); CARBON DIOXIDE LEVEL 23 MEQ/L (21-32); CHLORIDE LEVEL 106 MEQ/L (98-107); GLOMERULAR FILTRATION RATE 12.9 (>45); GLUCOSE, FASTING 77 MG/DL (70-100); POTASSIUM SERUM 4.5 MEQ/L (3.5-5.1); SODIUM LEVEL 138 MEQ/L (136-145)
[2018-08-05 15:35] LABS: ALBUMIN 3.5 GM/DL (3.2-5.2); ALT/SGPT 30 U/L (12-78); BILIRUBIN,DIRECT < 0.1 MG/DL (0.0-0.2); BILIRUBIN,TOTAL 0.5 MG/DL (0.2-1.0); CALCIUM LEVEL 9.4 MG/DL (8.8-10.2)
[2018-08-05 16:15] VITALS: BP 152/74
--- NOTE | 2018-08-06 07:06 | ECGEPIP ---
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
== END 2018-08-05 16:30 | disposition home or self-care (01) ==
LOC: EDBD 14:18 → M ED 14:18
DX: E11.649 Type 2 diabetes mellitus with hypoglycemia without coma (principal); I13.2 Hypertensive heart and chronic kidney disease with heart failure and with stage 5 chronic kidney disease, or end stage renal disease; I50.9 Heart failure, unspecified; I25.10 Atherosclerotic heart disease of native coronary artery without angina pectoris; E78.5 Hyperlipidemia, unspecified; N18.5 Chronic kidney disease, stage 5; Z99.2 Dependence on renal dialysis; E11.22 Type 2 diabetes mellitus with diabetic chronic kidney disease; J45.909 Unspecified asthma, uncomplicated; Z95.5 Presence of coronary angioplasty implant and graft; Z88.1 Allergy status to other antibiotic agents; Z88.2 Allergy status to sulfonamides; Z88.5 Allergy status to narcotic agent; Z91.040 Latex allergy status; Z79.899 Other long term (current) drug therapy; Z79.82 Long term (current) use of aspirin

== ENCOUNTER 2018-08-08 17:37 | Inpatient (IN) | payer MEDICARE ==
[~2018-08-08] VITALS: Ht 144.8 cm; Wt 88.2 kg
[~2018-08-08 17:37] MED LIST changes: -ALTEPLASE 2 MG/2 ML VIAL (J2997 PER 1MG) As Ordered ONE; -BUPIVACAINE HCL 0.5% 10 ML VIAL As Ordered ONE; -DEXTROSE 50% 50 ML SYRINGE As Ordered ONE; -HEPARIN 1,000 UNITS/ML 10ML VIAL (FOR RADIOLOGY& DIALYSIS ONLY) As Ordered ONE; -HUMA100I3 SC; -ISOVUE-300 61% 50ML VIAL (Q9967) As Ordered ONE; -LIDOCAINE 2% INJ 100 MG/5 ML SDV (FOR ANES.) As Ordered ONE; -LIDOCAINE 2% MDV 20 ML VIAL As Ordered ONE; -LOPE2TAB11 PO; -PROPOFOL 200 MG/20 ML VIAL As Ordered ONE; -PROTAMINE SULF INJ 50 MG/5 ML VIAL (J2720) As Ordered ONE; -TRES1INJ SQ
[2018-08-08] MEDS ORDERED: ONDANSETRON 4MG/2ML VIAL (J2405) IV ONE (18:00)
[2018-08-08] MEDS ORDERED: TORS20TA2 PO ×3 (18:07→22:04)
[2018-08-08] MEDS ORDERED: TRES1INJ SQ (18:07)
[2018-08-08 19:33] LABS: BASO # 0.1 10^3/uL (0.0-0.2); BASO % 0.3 % (0.0-1.0); EOS % 0.2 % (0.0-3.0); HEMATOCRIT 27.2 % (36.0-47.0); HEMOGLOBIN 8.7 g/dl (12.0-15.5); LYMPH # 1.4 10^3/uL (1.5-4.5); LYMPH % 8.1 % (24.0-44.0); MEAN CORPUSCULAR HEMOGLOBIN 31.9 pg (27.0-33.0); MEAN CORPUSCULAR VOLUME 99.6 fl (80.0-96.0); MONO # 1.2 10^3/uL (0.0-0.8); MONO % 7.2 % (0.0-5.0); NEUTROPHILS # 14.4 10^3/uL (1.8-7.7); NEUTROPHILS % 83.6 % (36.0-66.0); PLATELET COUNT, AUTOMATED 292 10^3/uL (150-450); RED BLOOD COUNT 2.73 10^6/uL (4.00-5.40); WHITE BLOOD COUNT 17.3 10^3/uL (4.0-10.0)
[2018-08-08 19:43] LABS: INR 1.07; PARTIAL THROMBOPLASTIN TIME 27.7 SECONDS (25.0-38.4); PROTHROMBIN TIME 13.6 SECONDS (11.8-14.0)
[2018-08-08 20:11] LABS: CREATININE FOR GFR 4.11 MG/DL (0.55-1.30); GLOMERULAR FILTRATION RATE 11.5 (>45)
[2018-08-08 20:12] LABS: ALBUMIN 2.8 GM/DL (3.2-5.2); BILIRUBIN,DIRECT 0.1 MG/DL (0.0-0.2); BILIRUBIN,TOTAL 0.4 MG/DL (0.2-1.0); CALCIUM LEVEL 8.5 MG/DL (8.8-10.2); CK-MB VALUE MASS 3.2 NG/ML (<3.6); FREE T4 1.16 NG/DL (0.76-1.46); MB/CK RELATIVE INDEX 2.96 (< OR =4); POTASSIUM SERUM 4.2 MEQ/L (3.5-5.1); THYROID STIMULATING HORMONE 4.46 uIU/ML (0.358-3.740); TOTAL PROTEIN 6.3 GM/DL (6.4-8.2); TROPONIN I 0.06 NG/ML (< 0.10)
[2018-08-08] MEDS: DOCUSATE SODIUM 100 MG CAP PO SCH (21:00)
[2018-08-08] MEDS ORDERED: MAALOX 30 ML SUSP *UDC PO PRN (22:00)
[2018-08-08] MEDS ORDERED: MOM 30ML SUSPENSION UDC PO PRN (22:00)
[2018-08-08] MEDS ORDERED: LOPE2TAB11 PO (22:04)
[2018-08-08] MEDS ORDERED: TRUL0.5I SC (22:04)
[2018-08-08] MEDS ORDERED: HUMA100I3 SC (22:04)
[2018-08-08] MEDS ORDERED: SYMB16INH INH (22:04)
[2018-08-08] MEDS ORDERED: METO50TA7 PO (22:04)
--- NOTE | 2018-08-08 22:29 | ECGEPIP ---
[facility] - ED Test Date: 2018-08-08 Pat Name: MARYBETH HERNADEZ Department: Room: - Gender: Female Spray Operator: TC : 1950 Requested By: KOKI Kay Order Number: [id number] Reading MD: Billy Bennett Measurements Intervals [place] Rate: 90 P: 53 FL: 147 QRS: QRSD: 140 T: 161 QT: 404 QTc: 496 Interpretive Statements SINUS RHYTHM LEFT BUNDLE BRANCH BLOCK Prolonged QT interval Similar to tracing done 08-05-18 Electronically Signed on 08-08-2018 22:29:03 EDT by Billy Bennett
[2018-08-08] MEDS ORDERED: NS 1,000 ML IV SCH (23:13)
[2018-08-08 23:15] VITALS: BP 149/64
[2018-08-08] MEDS ORDERED: diphenhydrAMINE 25 MG CAP PO ONE (23:15)
[2018-08-08] MEDS ORDERED: ACETAMINOPHEN TAB 650MG DOSE (2X325MG) PO ONE (23:15)
[2018-08-09 01:00] VITALS: BP 120/54
[2018-08-09 01:15] VITALS: BP 121/58
[2018-08-09 02:00] VITALS: BP 122/56
--- NOTE | 2018-08-09 03:52 | HPEPDOC ---
General Date of Admission 08/08/18 Date of Service: Aug 08, 2018 Primary Care Physician: Mehreen Weinstein Other Providers Acosta LUTZ Attending Physician: RAYNA CALDERÓN DO Chief Complaint The patient is a 68-year-old female admitted with a reason for visit of Lightheaded After Procedure. Source: Patient Exam Limitations: No limitations Timing/Duration: Day(s), Getting worse Severity: Severe Associated Symptoms: Diaphoresis, Malaise, Nausea, Shortness of breath, Syncope, Weakness, Hypotension, Dizziness History of Present Illness 68 yo diabetic female with ESRD on dialysis (MWF) brought to ED after near syncopal episode. Patient had dialysis on tuesday and problems with fistula to left arm including "stringy clots" in dialysis machine. She was dr Lutz today and had fisulogram performed with increased bleeding. Pressure dressing applied and patient was monitor. While in XRAY she became diaphoretic, hypotensive and increased bleeding from fistula in left arm. She had brief near syncopal episode and brought to ED. In the ED Vomited twice. She was not hypoglycemic. Lab evaluation showed a significant drop in hemoglobin from 12 to 8.7. Case discussed with Dr Lutz by ED doc and I discussed case also with nephrology industrial relations specialist (Dr Shane). patient is being admitted for transfusion, monitoring of fistula bleeding and dialysis tomorrow. Home Medications Scheduled Aspirin (Aspirin EC) 81 Mg Tab, 81 MG PO DAILY, (Reported) Atorvastatin Calcium (Atorvastatin Calcium) 40 Mg Tab, 40 MG PO DAILY, (Reported) ON HOLD Azelastine HCl (Azelastine HCl) 0.15 % Spr, 1 SPRAY NA BID, (Reported) Budesonide/Formoterol (Symbicort 160-4.5 Mcg Inhaler) 6 Gm Hfa.aer.ad, 2 PUFF INH BID, (Reported) Calcitriol (Calcitriol) 0.25 Mcg Cap, 0.25 MCG PO DAILY, (Reported) Cholecalciferol (Vitamin D3) (Vitamin D3) 1,000 Unit Capsule, 1,000 UNIT PO DAILY, (Reported) Dulaglutide (Trulicity) 1.5 Mg/0.5 Ml Pen.injctr, 1.5 MG SC 1XWK, (Reported) FRIDAYS Ferrous Sulfate (Iron) 325 Mg Tablet, 325 MG PO DAILY, (Reported) Insulin Degludec (Tresiba Flextouch U-200) 200 Unit/1 Ml Insuln.pen, 80 UNITS SQ DAILY, (Reported) Insulin Lispro (Humalog) 100 Unit/1 Ml Cartridge, 15 UNITS SC AC, (Reported) Levothyroxine Sodium (Levothyroxine Sodium) 112 Mcg Tab, 112 MCG PO DAILY, (Reported) Metoprolol Tartrate (Metoprolol Tartrate) 50 Mg Tablet, 50 MG PO BID, (Reported) ON HOLD Omeprazole (Omeprazole) 20 Mg Tab, 20 MG PO DAILY, (Reported) Torsemide (Torsemide) 20 Mg Tablet, 40 MG PO DAILY, (Reported) Torsemide (Torsemide) 20 Mg Tablet, 30 MG PO QPM, (Reported) 1500 Scheduled PRN Albuterol Sulfate (Ventolin Hfa) 108 Mcg/Act Aer, 2 PUFFS INH QID PRN for SHORTNESS OF BREATH, (Reported) Dextrose (Glucose) 4 Gm Chw, 4 GM PO ASDIRECTED PRN for BLOOD SUGAR < 50, (Reported) Loperamide HCl (Imodium A-D) 2 Mg Tablet, 2 MG PO DAILY PRN for DIARRHEA, (Reported) Nitroglycerin (Nitrostat) 0.4 Mg Subl, 0.4 MG SL NITRO PRN for CHEST PAIN, (Reported) Allergies Coded Allergies: cephalexin (Verified Allergy, Severe, RASH, DYSPNEA, 05/09/18) gatifloxacin (Verified Allergy, Severe, RASH, DYSPNEA, 05/09/18) tramadol (Verified Allergy, Severe, RASH, DYSPNEA, 05/09/18) nitrofurantoin (Verified Allergy, Mild, RASH, 05/09/18) latex (Verified Allergy, Unknown, 05/09/18) sulfamethoxazole (Verified Adverse Reaction, Intermediate, EFFECTS KIDNEY FUNCTION, 05/09/18) trimethoprim (Verified Adverse Reaction, Intermediate, EFFECTS KIDNEY FUNCTION, 05/09/18) Past Medical History Medical History hypertension, dyslipidemia, diabetes, asthma, chronic diastolic congestive heart failure, coronary artery disease status post stenting in 2013, and end- stage renal disease on hemodialysis (M, W, F), hypothryoid, cholelithiasis Surgical History Appy, T&A, left fistula placement 07/2017, Bilateral cataract surgery, Carpal tunnel surgery bilaterally, left elbow fracture, abd laparotomy Family History Significant Family History: COPD (both parents) Social History * Smoker: Denies Alcohol: Denies Drugs: denies A-FIB/CHADSVASC A-FIB History Current/History of A-Fib/PAF?: No Current PO Anticoag Therapy: No Review of Systems Other systems 12 comprehensive systems reviewed and negative except as per HPI Physical Examination General Exam: Positive: Alert, Cooperative, No Acute Distress Eye Exam: Positive: PERRLA, Conjunctiva & lids normal ENT Exam: Positive: Atraumatic, Mucous membr. moist/pink, Pharynx Normal, Other ENT (edentulous) Neck Exam: Positive: Supple, +2 carotid pulse wo bruit Chest Exam: Positive: Clear to auscultation, Normal air movement, Rales (bibase) Heart Exam: Positive: Rate Normal, Regular Rhythm Telemetry: Positive: Other Telemetry: (LBBB (chronic) Patient is wearing a holter monitor) Abdomen Exam: Positive: Normal bowel sounds, Soft (NT ND) Extremity Exam: Positive: Normal pulses; Negative: Clubbing, Cyanosis, Edema Skin Exam: Positive: Nl turgor and temperature Neuro Exam: Positive: Normal Speech, Strength at 5/5 X4 ext, Normal Tone, Sensation Intact Psych Exam: Positive: Mental status NL, Mood NL, Oriented x 3 Vital Signs Vital Signs Date Time Temp Pulse Resp B/P (MAP) Pulse Ox O2 Delivery O2 Flow Rate FiO2 08/08/18 20:36 75 122/57 (78) 82 139/61 (87) 88 128/63 (84) 08/08/18 20:00 18 100 08/08/18 17:56 96.0 Room Air Laboratory Data Labs 24H Laboratory Tests 2 08/08/18 19:16: Immature Granulocyte % (Auto) 0.6, White Blood Count 17.3H, Red Blood Count 2.73L, Hemoglobin 8.7L, Hematocrit 27.2L, Mean Corpuscular Volume 99.6H, Mean Corpuscular Hemoglobin 31.9, Mean Corpuscular Hemoglobin Concent 32.0, Red Cell Distribution Width 15.1H, Platelet Count 292, Neutrophils (%) (Auto) 83.6H, Lymphocytes (%) (Auto) 8.1L, Monocytes (%) (Auto) 7.2H, Eosinophils (%) (Auto) 0.2, Basophils (%) (Auto) 0.3, Neutrophils # (Auto) 14.4H, Lymphocytes # (Auto) 1.4L, Monocytes # (Auto) 1.2H, Eosinophils # (Auto) 0.0, Basophils # (Auto) 0.1, Nucleated Red Blood Cells % (auto) 0.0, Prothrombin Time 13.6, Prothromb Time International Ratio 1.07, Activated Partial Thromboplast Time 27.7, Anion Gap 12, Glomerular Filtration Rate 11.5L, Calcium Level 8.5L, Aspartate Amino Transf (AST/SGOT) 19, Alanine Aminotransferase (ALT/SGPT) 21, Alkaline Phosphatase 94, Total Bilirubin 0.4, Direct Bilirubin 0.1, Total Creatine Kinase 108, Creatine Kinase MB 3.2, Creatine Kinase MB Relative Index 2.96, Troponin I 0.06, Total Protein 6.3L, Albumin 2.8L, Albumin/Globulin Ratio 0.80L, Lipase 169, Thyroid Stimulating Hormone (TSH) 4.460H, Free Thyroxine 1.16 08/08/18 19:25: Bedside Glucose (Misc Panel) 164H CBC/BMP Laboratory Tests 08/08/18 19:16 Red Blood Count 2.73 L, Mean Corpuscular Volume 99.6 H, Mean Corpuscular Hemoglobin 31.9, Mean Corpuscular Hemoglobin Concent 32.0, Red Cell Distribution Width 15.1 H, Neutrophils (%) (Auto) 83.6 H, Lymphocytes (%) (Auto) 8.1 L, Monocytes (%) (Auto) 7.2 H, Eosinophils (%) (Auto) 0.2, Basophils (%) (Auto) 0.3, Neutrophils # (Auto) 14.4 H, Lymphocytes # (Auto) 1.4 L, Monocytes # (Auto) 1.2 H, Eosinophils # (Auto) 0.0, Basophils # (Auto) 0.1 RAD Interpretation STUDY: CXR Rad Actions: Report Not Available, Films Reviewed, Discussed with the pt (and ER doc) RAD Interpretation: Other Result Comments: (cardiomegally, no CHF, no effusion) Assessment/Plan 1) acute blood loss anemia from left arm fistula after fistulogram performed earlier today Transfuse [address] Lutz (notified by ED Doc). serial H/H q12h 2) ESRD with CKD V - dialysis M,W,F - Dr Shane notified and case discussed 3) Diabetes - on chronic insulin without hyperglycemia or hypoglycemia - SSI, Levemir 4) LBBB - chronic - continue with outpatient holter monitor. daughter to bring in replacement battery. Has f/u appt with cardiology (Dr Cruz) 5) DIXON - daughter to bring in home CPAP machine CODE: FULL DVT Prophylaxis - hold enoxaprin due to acute blood loss anemia. SCD ordered Plan / VTE VTE Prophylaxis Ordered?: Yes RAYNA CALDERÓN DO Aug 08, 2018 21:46
[2018-08-09] MEDS ORDERED: LOPERAMIDE 2 MG CAP PO PRN (04:00)
[2018-08-09] MEDS ORDERED: ALBUTEROL 90 MCG/ACT 8GM HFA INHALER INH PRN (04:00)
[2018-08-09 05:52] LABS: HEMATOCRIT 27.2 % (36.0-47.0); MEAN CORPUSCULAR HEMOGLOBIN 30.9 pg (27.0-33.0); MEAN CORPUSCULAR HGB CONC 33.1 g/dl (32.0-36.5); MEAN CORPUSCULAR VOLUME 93.5 fl (80.0-96.0); PLATELET COUNT, AUTOMATED 238 10^3/uL (150-450); RED BLOOD COUNT 2.91 10^6/uL (4.00-5.40); WHITE BLOOD COUNT 11.2 10^3/uL (4.0-10.0)
[2018-08-09] MEDS: LEVOTHYROXINE 112MCG TABLET (0.112MG) PO SCH (06:14)
[2018-08-09] MEDS: ACETAMINOPHEN TAB 650MG DOSE (2X325MG) PO PRN (06:14)
[2018-08-09 07:10] LABS: CALCIUM LEVEL 8.3 MG/DL (8.8-10.2); CREATININE FOR GFR 4.22 MG/DL (0.55-1.30); GLOMERULAR FILTRATION RATE 11.1 (>45); POTASSIUM SERUM 3.9 MEQ/L (3.5-5.1)
--- NOTE | 2018-08-09 07:52 | REP ---
REASON: Near syncopal episode. COMPARISON: Frontal view obtained 05/26/2018 and two-view examination of 05/15/2018. There is cardiomegaly status quo. The lung aquino are stable. No acute parenchymal opacities or pleural effusions have developed. The right-sided central venous catheter has been removed. There are chronic osseous changes status quo. IMPRESSION: Stable appearing chronic left lung base changes and cardiomegaly without evidence of acute cardiopulmonary disease. Electronically Signed by Jayant Jordan DO 08/09/2018 03:42 P
[2018-08-09] MEDS: SYMBICORT 160/4.5MCG INHALER 6GM INH SCH ×2 (07:54→20:44)
[2018-08-09 08:00] VITALS: BP 112/60
[2018-08-09] MEDS: OMEPRAZOLE 20 MG CAP PO SCH (11:04)
[2018-08-09] MEDS: METOPROLOL TART 50 MG TAB PO SCH ×2 (11:04→20:23)
[2018-08-09] MEDS: ATORVASTATIN 20 MG TAB PO SCH (11:04)
[2018-08-09] MEDS: DOCUSATE SODIUM 100 MG CAP PO SCH ×2 (11:05→20:23)
[2018-08-09] MEDS: TORSEMIDE 20 MG TAB PO SCH (11:05)
[2018-08-09] MEDS: CALCITRIOL 0.25 MCG CAP (S0169) PO SCH (11:05)
[2018-08-09] MEDS: FERROUS SULFATE 325MG TAB PO SCH (11:05)
[2018-08-09] MEDS: VITAMIN D 1,000 INTERNATIONAL UNITS TABLET PO SCH (11:05)
[2018-08-09] MEDS: ASPIRIN 81 MG ENTERIC TAB PO SCH (11:05)
--- NOTE | 2018-08-09 14:35 | CR.PDOC ---
General Date of Consultation: Aug 09, [address] Benito. HPI: 68 yo female with ESRD on dialysis (MWF) brought to ED after near syncopal episode. Patient had dialysis on tuesday and had problems with fistula to left arm including "stringy clots" in dialysis machine. She was seen by Dr Benito 08/08/18 for fistulogram. Report from Fistulogram 08/08/18 not available. The pt apparently had bleeding and pressure dressing was applied and the patient was monitored. While in XR she became diaphoretic, hypotensive and increased bleeding from fistula in left arm. She had brief near syncopal episode and was brought to ED. Lab evaluation showed a significant drop in hemoglobin from 12 to 8.7. Case was discussed with Dr Benito by ED, the patient was admitted for transfusion, monitoring of fistula bleeding and dialysis as per Nephrology. No acute medical complaints today. The pt is OOB to chair, dressing is applied to AVF LUE and no additional bleeding since admission. Denies any fevers, chills, weakness, fatigue, Headache, Chest Pain, Shortness of breath, cough, palpitations, abdominal pain, N/V/D or changes in bowel or bladder habits. Medical History hypertension, dyslipidemia, diabetes, asthma, chronic diastolic congestive heart failure, coronary artery disease status post stenting in 2013, end-stage renal disease on hemodialysis (M, W, F), hypothryoid, cholelithiasis Surgical History Appendectomy, T&A, left fistula placement 07/2017, Bilateral cataract surgery, Carpal tunnel surgery bilaterally, left elbow fracture, abd laparotomy SOCHX: Tobacco use Denies Alcohol: Denies Drugs: denies FAMHX: Mother/father COPD. ROS: As noted in HPI, otherwise 11pt ROS of systems reviewed and unremarkable. PE: GEN: 68yoF, appears stated age. Well-nourished, well developed. No acute distress. Alert and oriented x 3. HEENT: Normocephalic, atraumatic. Sclera are nonicteric. Conjunctiva without injection. Moist mucous membranes. CHEST: Regular rate and rhythm, +S1, +S2 LUNGS: Clear to auscultation bilaterally. No wheezes, rales, or rhonchi. Parachute thing appears symmetric and easy. ABD: Round, soft, non-tender, non-distended. +Bowel sounds throughout. EXT: AVF Lt upper arm with dressing applied, no bleeding. SKIN: Dar[place], dry, warm. No rashes. NEURO: Alert and oriented x 3. Cranial nerves III-XII are intact. No focal deficits appreciated. A&P: 1. ESRD. Hemodialysis every Tuesday/Tuesday/Tuesday as per nephrology. AVF Lt upper extremity S/P fistulogram as per Dr. Benito 08/08/18 report is not available at this time. The patient had subsequent bleeding from AVF. No recurrent bleeding is reported since admission. 1 U PRBC 08/09/18. Hgb 9.0. Plan as relayed by Dr. Benito 08/09/18 is for PermCath 08/10/18. Thank you for your consultation. We will continue to follow along with you. Vital Signs/I&O Vital Signs Date Time Temp Pulse Resp B/P (MAP) Pulse Ox O2 Delivery O2 Flow Rate FiO2 08/09/18 11:04 98/64 08/09/18 08:00 96.7 68 17 98 2.0 08/08/18 17:56 Room Air I&O- Last 24 Hours up to 6 AM 08/09/18 06:00 Intake Total 0 ml Output Total 0 ml Balance 0 ml Laboratory Data Labs 24H Laboratory Tests 2 08/08/18 19:16: Immature Granulocyte % (Auto) 0.6, White Blood Count 17.3H, Red Blood Count 2.73L, Hemoglobin 8.7L, Hematocrit 27.2L, Mean Corpuscular Volume 99.6H, Mean Corpuscular Hemoglobin 31.9, Mean Corpuscular Hemoglobin Concent 32.0, Red Cell Distribution Width 15.1H, Platelet Count 292, Neutrophils (%) (Auto) 83.6H, Lymphocytes (%) (Auto) 8.1L, Monocytes (%) (Auto) 7.2H, Eosinophils (%) (Auto) 0.2, Basophils (%) (Auto) 0.3, Neutrophils # (Auto) 14.4H, Lymphocytes # (Auto) 1.4L, Monocytes # (Auto) 1.2H, Eosinophils # (Auto) 0.0, Basophils # (Auto) 0.1, Nucleated Red Blood Cells % (auto) 0.0, Prothrombin Time 13.6, Prothromb Time International Ratio 1.07, Activated Partial Thromboplast Time 27.7, Anion Gap 12, Glomerular Filtration Rate 11.5L, Calcium Level 8.5L, Aspartate Amino Transf (AST/SGOT) 19, Alanine Aminotransferase (ALT/SGPT) 21, Alkaline Phosphatase 94, Total Bilirubin 0.4, Direct Bilirubin 0.1, Total Creatine Kinase 108, Creatine Kinase MB 3.2, Creatine Kinase MB Relative Index 2.96, Troponin I 0.06, Total Protein 6.3L, Albumin 2.8L, Albumin/Globulin Ratio 0.80L, Lipase 169, Thyroid Stimulating Hormone (TSH) 4.460H, Free Thyroxine 1.16 08/08/18 19:25: Bedside Glucose (Misc Panel) 164H 08/09/18 05:24: Nucleated Red Blood Cells % (auto) 0.0, Anion Gap 9, Glomerular Filtration Rate 11.1L, Calcium Level 8.3L, Blood Urea Nitrogen 58H, Creatinine 4.22H, Sodium Level 141, Potassium Level 3.9, Chloride Level 110H, Carbon Dioxide Level 22 CBC/BMP Laboratory Tests 08/08/18 19:16 Red Blood Count 2.73 L, Mean Corpuscular Volume 99.6 H, Mean Corpuscular Hemoglobin 31.9, Mean Corpuscular Hemoglobin Concent 32.0, Red Cell Distribution Width 15.1 H, Neutrophils (%) (Auto) 83.6 H, Lymphocytes (%) (Auto) 8.1 L, Monocytes (%) (Auto) 7.2 H, Eosinophils (%) (Auto) 0.2, Basophils (%) (Auto) 0.3, Neutrophils # (Auto) 14.4 H, Lymphocytes # (Auto) 1.4 L, Monocytes # (Auto) 1.2 H, Eosinophils # (Auto) 0.0, Basophils # (Auto) 0.1 08/09/18 05:24 Red Blood Count 2.91 L, Mean Corpuscular Volume 93.5, Mean Corpuscular Hemoglobin 30.9, Mean Corpuscular Hemoglobin Concent 33.1, Red Cell Distribution Width 15.9 H, Calcium Level 8.3 L Allergies Coded Allergies: cephalexin (Verified Allergy, Severe, RASH, DYSPNEA, 05/09/18) gatifloxacin (Verified Allergy, Severe, RASH, DYSPNEA, 05/09/18) tramadol (Verified Allergy, Severe, RASH, DYSPNEA, 05/09/18) nitrofurantoin (Verified Allergy, Mild, RASH, 05/09/18) latex (Verified Allergy, Unknown, 05/09/18) sulfamethoxazole (Verified Adverse Reaction, Intermediate, EFFECTS KIDNEY FUNCTION, 05/09/18) trimethoprim (Verified Adverse Reaction, Intermediate, EFFECTS KIDNEY FUNCTION, 05/09/18) Home Medications Scheduled Aspirin (Aspirin EC) 81 Mg Tab, 81 MG PO DAILY, (Reported) Atorvastatin Calcium (Atorvastatin Calcium) 40 Mg Tab, 40 MG PO DAILY, (Reported) ON HOLD Azelastine HCl (Azelastine HCl) 0.15 % Spr, 1 SPRAY NA BID, (Reported) Budesonide/Formoterol (Symbicort 160-4.5 Mcg Inhaler) 6 Gm Hfa.aer.ad, 2 PUFF INH BID, (Reported) Calcitriol (Calcitriol) 0.25 Mcg Cap, 0.25 MCG PO DAILY, (Reported) Cholecalciferol (Vitamin D3) (Vitamin D3) 1,000 Unit Capsule, 1,000 UNIT PO DAILY, (Reported) Dulaglutide (Trulicity) 1.5 Mg/0.5 Ml Pen.injctr, 1.5 MG SC 1XWK, (Reported) FRIDAYS Ferrous Sulfate (Iron) 325 Mg Tablet, 325 MG PO DAILY, (Reported) Insulin Degludec (Tresiba Flextouch U-200) 200 Unit/1 Ml Insuln.pen, 80 UNITS SQ DAILY, (Reported) Insulin Lispro (Humalog) 100 Unit/1 Ml Cartridge, 15 UNITS SC AC, (Reported) Levothyroxine Sodium (Levothyroxine Sodium) 112 Mcg Tab, 112 MCG PO DAILY, (Reported) Metoprolol Tartrate (Metoprolol Tartrate) 50 Mg Tablet, 50 MG PO BID, (Reported) ON HOLD Omeprazole (Omeprazole) 20 Mg Tab, 20 MG PO DAILY, (Reported) Torsemide (Torsemide) 20 Mg Tablet, 40 MG PO DAILY, (Reported) Torsemide (Torsemide) 20 Mg Tablet, 30 MG PO QPM, (Reported) 1500 Scheduled PRN Albuterol Sulfate (Ventolin Hfa) 108 Mcg/Act Aer, 2 PUFFS INH QID PRN for SHORTNESS OF BREATH, (Reported) Dextrose (Glucose) 4 Gm Chw, 4 GM PO ASDIRECTED PRN for BLOOD SUGAR < 50, (Reported) Loperamide HCl (Imodium A-D) 2 Mg Tablet, 2 MG PO DAILY PRN for DIARRHEA, (Reported) Nitroglycerin (Nitrostat) 0.4 Mg Subl, 0.4 MG SL NITRO PRN for CHEST PAIN, (Reported) Bisi Pastor Aug 09, 2018 14:35
--- NOTE | 2018-08-09 14:49 | IPNPDOC ---
Text Note Date of Service The patient was seen on 08/09/18. NOTE Subjective: Patient is a 68-year-old female with a PMHx of ESRD on HD (MWF), HTN, DLP, DM2, Asthma, Chronic Diastolic CHF, CAD s/p stent (2013), Hypothyroidism, who presented to the ER after she was found to have a near-syncopal episode after a procedure. She reported that on Tuesday she was having problems with her fistula causing clots in the dialysis machine and she was subsequent sent for a fistulogram with Dr. Benito. Her procedure, patient began to experience some bleeding .Pressure dressing was applied. However, patient became hypotensive and diaphoretic and was sent to the emergency room for further evaluation. Patient was admitted to hospital service for further evaluation and treatment. Vascular surgery and nephrology were called on consultation. Patient was seen and examined at the bedside. . Currently, patient reports that she stilts rinsing some mild left arm pain. She denies nausea, vomiting, abdominal pain, constipation, diarrhea. Objective: Vitals (See below) General: Lying in bed, no acute distress, comfortable, AAOx3 HEENT: NC, AT CVS: RRR, +S1S2 Lungs: Fair air entry b/l, -w/r/r Abdomen: Soft, nondistended, nontender Extremities: - Edema, - Calf tenderness, left arm AV fistula with pressure dressing in place Assessment and plan: Acute blood loss anemia - likely 2/2 bleeding from L arm AVF - Continue patient is an improvement in her blood count - s/p 1 unit PRBC; will transfuse additional unit of PRBC - Will go for reevaluation of fistula with Dr. Benito within next 2 days - Vascular surgery on consultation ESRD on HD - Patient has received dialysis on Tuesday - On for additional hemodialysis after permacath is placed tomorrow with Dr. Benito - Nephrology is on consultation Left bundle-branch block - Has a known history of this and follows with cardiology as an outpatient, Dr. Burton - Patient has a Holter monitor placed IDDM2 - c/w ISS and Levemir HTN - BP well controlled - c/w Metoprolol and Torsemide Chronic Diastolic CHF - no evidence of fluid overload - c/w Torsemide DLP - c/w atorvastatin Asthma - c/w inhaled therapy as ordered DIXON on CPAP - may allow home CPAP use while inpatient CAD s/p stent (2013) - c/w ASA 81, Atorvastatin Hypothyroidism - c/w Levothyroxine GERD - c/w Omeprazole DVT prophylaxis - c/w SCDs/RAFA Code Status: - Full code VS,Fishbone, I+O VS, Fishbone, I+O Laboratory Tests 08/08/18 19:16 Red Blood Count 2.73 L, Mean Corpuscular Volume 99.6 H, Mean Corpuscular Hemoglobin 31.9, Mean Corpuscular Hemoglobin Concent 32.0, Red Cell Distribution Width 15.1 H, Neutrophils (%) (Auto) 83.6 H, Lymphocytes (%) (Auto) 8.1 L, Monocytes (%) (Auto) 7.2 H, Eosinophils (%) (Auto) 0.2, Basophils (%) (Auto) 0.3, Neutrophils # (Auto) 14.4 H, Lymphocytes # (Auto) 1.4 L, Monocytes # (Auto) 1.2 H, Eosinophils # (Auto) 0.0, Basophils # (Auto) 0.1 08/09/18 05:24 Red Blood Count 2.91 L, Mean Corpuscular Volume 93.5, Mean Corpuscular Hemoglobin 30.9, Mean Corpuscular Hemoglobin Concent 33.1, Red Cell Distribution Width 15.9 H, Calcium Level 8.3 L Vital Signs Date Time Temp Pulse Resp B/P (MAP) Pulse Ox O2 Delivery O2 Flow Rate FiO2 08/09/18 11:04 98/64 08/09/18 08:00 96.7 68 17 98 2.0 08/08/18 17:56 Room Air I&O- Last 24 Hours up to 6 AM 08/09/18 06:00 Intake Total 0 ml Output Total 0 ml Balance 0 ml RAYMOND GROVES MD Aug 09, 2018 14:49
[2018-08-09] MEDS ORDERED: TORSEMIDE 20 MG TAB PO SCH (15:00)
[2018-08-09] MEDS ORDERED: SLF 3 ML SYR IV PRN (15:00)
[2018-08-09 16:00] VITALS: BP 135/95
[2018-08-09 18:35] LABS: HEMATOCRIT 37.1 % (36.0-47.0); HEMOGLOBIN 12.2 g/dl (12.0-15.5)
[2018-08-09] MEDS: SLF 3 ML SYR IV SCH (20:23)
[2018-08-09 22:00] VITALS: BP 155/72
[2018-08-10 00:31] LABS: HEMATOCRIT 29.7 % (36.0-47.0)
[2018-08-10 00:48] LABS: HEMOGLOBIN 9.9 g/dl (12.0-15.5)
[2018-08-10] MEDS: ACETAMINOPHEN TAB 650MG DOSE (2X325MG) PO PRN ×2 (00:48→18:02)
[2018-08-10 06:00] VITALS: BP 148/61
[2018-08-10] MEDS: SLF 3 ML SYR IV SCH ×3 (06:20→21:02)
[2018-08-10] MEDS: LEVOTHYROXINE 112MCG TABLET (0.112MG) PO SCH (06:20)
--- NOTE | 2018-08-10 07:26 | CR ---
INITIAL INPATIENT CONSULTATION DATE OF SERVICE: 08/09/2018 REQUESTING PHYSICIAN: Dr. Magali Kaur CONSULTING PHYSICIAN: Dr. Shane REASON FOR CONSULTATION: Management of end-stage renal disease and hemodialysis. CHIEF COMPLAINT: The patient was admitted after the outpatient fistulogram procedure because of bleeding and lightheadedness. HISTORY OF PRESENT ILLNESS: Barbie Duran is a 68-year-old female with past medical history of end-stage renal disease on hemodialysis every Tuesday, Tuesday, Tuesday, history of diabetes mellitus type 2, hypertension, secondary hyperparathyroidism, other multiple medical comorbidities as mentioned below. She was having a problem with the left upper arm AV fistula flow and was having clots. She was seen by vascular surgery as outpatient. She got the fistulogram done yesterday and removal of clots was attempted, however, the patient had bleeding during the procedure and fistula could not be opened up adequately. She was sent to the emergency room for further evaluation. She was diaphoretic and hypotensive and complained of lightheadedness. The patient also vomited twice in the emergency room. She was admitted overnight under the hospitalist service. Initial evaluation showed that her hemoglobin had dropped from 12 to 8.7 after the procedure. She was given 2 units of packed red blood cells (PRBC) transfusion overnight. Nephrology service was called for further help in the management of this patient and arrangement of hemodialysis today. I saw and evaluated the patient today morning at the bedside. The patient reports that she is feeling much better today as compared with yesterday. She denies any more bleeding from the AV fistula site. She is otherwise afebrile and denies any active complaints. OBJECTIVE: Vital signs: Temperature is 97 degrees Fahrenheit, blood pressure 135/95, pulse is 71, respiratory rate of 17, saturating 98% on room air. Head and neck exam extraocular muscles intact. Pupils equally round and reactive to light. Mucous membranes are moist. Neck is supple. There is no jugular venous distention (JVD). Cardiovascular: S1, S2, regular rate. Trace edema of the bilateral lower extremities. Respiratory: Chest is clear to auscultation bilaterally. Bilateral equal air entry. No rales or rhonchi. Abdomen: Soft, obese, positive bowel sounds, nontender. No organomegaly. Musculoskeletal: No clubbing or cyanosis. Pulses are 2+. CAREER DEVELOPMENT SPECIALIST: No focal deficit. Power is 5+5 in all extremities. Skin: No rashes or ulcers. AV axis - the patient has left upper arm AV fistula site dressing. There is no thrill and bruit noted in the AV fistula. LAB REVIEW: CBC showed a WBC of 17.3 and hemoglobin of 8.7 with a platelet of 292 on arrival, INR is 1. BMP today showed sodium 141, potassium 3.9, chloride 110, bicarb 22, BUN 58, creatinine is 4.2. IMAGING STUDIES: A chest x-ray done yesterday showed stable appearing chronic left lung base changes and cardiomegaly without acute cardiopulmonary disease. CURRENT INPATIENT MEDICATIONS: The patient's medications were all reviewed by me. She was getting gentle IV fluid hydration which has been stopped now. She is on Tylenol as needed, albuterol as needed, aspirin 81 mg daily, Lipitor 40 mg daily, Symbicort two puffs twice a day, calcitriol 0.25 mcg by mouth daily, Benadryl 25 mg by mouth once dose, Colace 100 mg by mouth twice a day, iron tablet 325 mg by mouth daily, levothyroxine 112 mcg by mouth daily, metoprolol 50 mg by mouth twice a day, Milk of Magnesia, omeprazole 20 mg daily, torsemide 40 mg by mouth daily, vitamin D 1000 units by mouth daily. ASSESSMENT: 68-year-old female with past medical history of end-stage renal disease on hemodialysis, diabetes mellitus type 2, admitted this time because of symptomatic anemia and near syncope after left upper arm AV fistula site procedure and bleeding. PLAN: 1. End-stage renal disease on hemodialysis. Today is patient's regular day of dialysis according to Tuesday, Tuesday, Tuesday schedule, however, patient's left arm AV fistula is thrombosed now. She has no access. She will get tunneled hemodialysis catheter placement and she will be dialyzed after the catheter. 2. Acute blood loss anemia. The patient already got 2 units of PRBC transfusion, hemoglobin has nicely improved. There is no more bleeding from the AV fistula site. 3. Left upper arm AV fistula malfunction. Thrombectomy was tried yesterday, however, the patient has excessive bleeding. AV fistula has thrombosed. The patient will get tunneled dialysis catheter tomorrow morning. 4. Diabetes mellitus type 2. Continue current dose of insulin sliding scale. Rest of the management is as per primary team. 5. Secondary hyperparathyroidism in renal failure. Continue current dose of calcitriol 0.25 mcg by mouth daily. 6. Chronic lower extremity edema. Continue home dose of torsemide 30 mg by mouth daily. Thank you for involving me in the care of this patient. I shall be happy to follow the patient with you tomorrow morning.
[2018-08-10] MEDS: SYMBICORT 160/4.5MCG INHALER 6GM INH SCH ×2 (07:30→20:28)
[2018-08-10] MEDS ORDERED: fentaNYL 100 MCG/2 ML INJECTION (J3010) As Ordered ONE (07:45)
[2018-08-10] MEDS ORDERED: PROPOFOL 200 MG/20 ML VIAL As Ordered ONE (07:45)
[2018-08-10] MEDS ORDERED: LIDOCAINE 2% INJ 100 MG/5 ML SDV (FOR ANES.) As Ordered ONE (07:45)
[2018-08-10] MEDS ORDERED: DARBEPOETIN 100 MCG/0.5 ML *DIALYSIS* SYRINGE (J0882) IV SCH (08:30)
[2018-08-10] MEDS: TORSEMIDE 20 MG TAB PO SCH (09:00)
[2018-08-10] MEDS: DOCUSATE SODIUM 100 MG CAP PO SCH ×2 (09:24→21:01)
[2018-08-10] MEDS: METOPROLOL TART 50 MG TAB PO SCH ×2 (09:25→21:01)
[2018-08-10] MEDS: CALCITRIOL 0.25 MCG CAP (S0169) PO SCH (09:25)
[2018-08-10] MEDS: ATORVASTATIN 20 MG TAB PO SCH (09:25)
[2018-08-10] MEDS: OMEPRAZOLE 20 MG CAP PO SCH (09:25)
[2018-08-10] MEDS: FERROUS SULFATE 325MG TAB PO SCH (09:25)
[2018-08-10] MEDS: ASPIRIN 81 MG ENTERIC TAB PO SCH (09:25)
[2018-08-10] MEDS: VITAMIN D 1,000 INTERNATIONAL UNITS TABLET PO SCH (09:25)
--- NOTE | 2018-08-10 09:58 | IPNPDOC ---
Text Note Date of Service The patient was seen on 08/10/18. NOTE Subjective: Patient is a 68-year-old female with a PMHx of ESRD on HD (MW), HTN, DLP, DM2, Asthma, Chronic Diastolic CHF, CAD s/p stent (2013), Hypothyroidism, who presented to the ER after she was found to have a near-syncopal episode after a procedure. She reported that on Tuesday she was having problems with her fistula causing clots in the dialysis machine and she was subsequent sent for a fistulogram with Dr. Benito. Her procedure, patient began to experience some bleeding .Pressure dressing was applied. However, patient became hypotensive and diaphoretic and was sent to the emergency room for further evaluation. Patient was admitted to hospital service for further evaluation and treatment. Vascular surgery and nephrology were called on consultation. Patient was seen and examined at the bedside. Patient reports some left arm pain. She denies any nausea, vomiting, chest pain, shortness of breath or palpitations. Denies any diarrhea or constipation. Objective: Vitals (See below) General: Lying in bed, no acute distress, comfortable, AAOx3 HEENT: NC, AT CVS: RRR, +S1S2 Lungs: Fair air entry b/l, no appreciable wheezing, rhonchi, rales Abdomen: Remains soft, without any distention or tenderness Extremities: No evidence of edema, - Calf tenderness, left arm AV fistula with pressure dressing in place Assessment and plan: Acute blood loss anemia - likely 2/2 bleeding from L arm AVF - Continue patient is an improvement in her blood count - s/p 2 unit PRBC; Hg has improved appropriately - Vascular surgery on consultation ESRD on HD - Patient has received dialysis on Tuesday - Will go for additional hemodialysis after permacath is placed today with Dr. Benito; tentatively scheduled for 11 AM today - Nephrology is on consultation Left bundle-branch block - Has a known history of this and follows with cardiology as an outpatient, Dr. Burton - Patient has a Holter monitor placed IDDM2 - c/w ISS and Levemir HTN - BP well controlled - c/w Metoprolol and Torsemide Chronic Diastolic CHF - no evidence of fluid overload - c/w Torsemide DLP - c/w atorvastatin Asthma - c/w inhaled therapy as ordered DIXON on CPAP - may allow home CPAP use while inpatient CAD s/p stent (2013) - c/w ASA 81, Atorvastatin Hypothyroidism - c/w Levothyroxine GERD - c/w Omeprazole DVT prophylaxis - c/w SCDs/RAFA Code Status: - Full code VS,Fishbone, I+O VS, Fishbone, I+O Laboratory Tests 08/09/18 18:18 08/10/18 00:07 Vital Signs Date Time Temp Pulse Resp B/P (MAP) Pulse Ox O2 Delivery O2 Flow Rate FiO2 08/10/18 09:25 76 84/40 08/10/18 06:00 97.2 16 99 08/09/18 08:00 2.0 08/08/18 17:56 Room Air I&O- Last 24 Hours up to 6 AM 08/10/18 06:00 Intake Total 965 ml Output Total 600 ml Balance 365 ml RAYMOND GROVES MD Aug 10, 2018 09:57
[2018-08-10] MEDS ORDERED: NS 500 ML IV ONE (10:00)
[2018-08-10] MEDS ORDERED: DEXTROSE 50% 50 ML SYRINGE IV PRN (10:45)
[2018-08-10] MEDS ORDERED: GLUCOSE 4 GM CHEW TABLET PO PRN (10:45)
[2018-08-10] MEDS ORDERED: GLUCAGON FOR INJ 1 MG VIAL (J1610) SC PRN (10:45)
[2018-08-10] MEDS ORDERED: HEPARIN SOD (PORCINE) 5000 UNITS/ML VIAL As Ordered ONE (10:53)
[2018-08-10] MEDS ORDERED: LIDOCAINE 1% SDV INJ 30 ML VIAL As Ordered ONE (10:53)
[2018-08-10] MEDS ORDERED: BUPIVACAINE HCL 0.5% 30 ML VIAL As Ordered ONE (10:54)
[2018-08-10 11:20] LABS: ALBUMIN 2.9 GM/DL (3.2-5.2); CALCIUM LEVEL 7.9 MG/DL (8.8-10.2); CREATININE FOR GFR 4.23 MG/DL (0.55-1.30); GLOMERULAR FILTRATION RATE 11.1 (>45); PHOSPHORUS LEVEL 4.9 MG/DL (2.5-4.9); POTASSIUM SERUM 4.6 MEQ/L (3.5-5.1)
[2018-08-10] MEDS ORDERED: HEPARIN 1,000 UNITS/ML 10ML VIAL (FOR RADIOLOGY& DIALYSIS ONLY) XX ONE (11:45)
[2018-08-10] MEDS: HumaLOG INSULIN (NovoLOG) PER UNIT SC SCH ×2 (12:00→17:30)
[2018-08-10 12:05] LABS: HEMATOCRIT 29.9 % (36.0-47.0); HEMOGLOBIN 9.9 g/dl (12.0-15.5)
--- NOTE | 2018-08-10 12:54 | REP ---
Clinical: Catheter placement. Technique: Intraoperative fluoroscopic imaging using C-arm technique. Findings: Multiple images demonstrate the patient to be status post left-sided Perma-Cath placement with tip in the right atrium. Total fluoroscopic time 7 seconds. Impression: Satisfactory Perma-Cath placement. Electronically Signed by John King MD 08/10/2018 12:45 P
--- NOTE | 2018-08-10 14:57 | IPN ---
DATE OF SERVICE: 08/10/2018 SUBJECTIVE: The patient was seen and examined at the bedside today morning. The patient is afebrile. She denies any more bleeding from the AV fistula site. She cannot have dialysis done yesterday because she had no access. The patient is going to have tunneled dialysis catheter placed today. She otherwise denies any active complaints. OBJECTIVE: Vital signs: Temperature is 97.2 degrees Fahrenheit, blood pressure 148/61, pulse is 71, respiratory rate of 16, saturating 99% on room air. Intake and output - urine output recorded as 850 mL so far today since overnight. Weight in the bed scale is not available. PHYSICAL EXAMINATION: General: The patient is awake, alert, oriented times three, laying in bed in no apparent distress. Head and neck exam extraocular muscles intact. Pupils equally round and reactive to light. Mucous membranes are moist. Neck is supple. There is no jugular venous distention (JVD). Cardiovascular: S1 and S2, regular rate. No murmur, rub, or gallop. Trace edema of the bilateral extremities. Respiratory: Chest is clear to auscultation bilaterally. Bilateral equal air entry. No rales or rhonchi. Abdomen: Soft, obese, positive bowel sounds. Nontender. No organomegaly. Musculoskeletal: No clubbing or cyanosis. Pulses are 2+. TIMBER FELLER: No focal deficit. Power is 5/5 in all extremities. Skin: No rashes or ulcers. Left upper arm AV fistula is covered with a dressing and there is no thrill or bruit. LAB REVIEW: Hemoglobin today morning is 9.9, hematocrit is 29.7. BMP is pending. CURRENT INPATIENT MEDICATIONS: The patient's medications were all reviewed by me. There is no change in the medications today as compared with yesterday. ASSESSMENT AND PLAN: 1. End-stage renal disease on hemodialysis. The patient's regular dialysis days are Tuesday, Tuesday, Tuesday. She missed her dialysis yesterday. The patient is going to have her tunneled dialysis catheter placed and she will be dialyzed after that. 2. Acute blood loss anemia. The patient has been given 2 units of packed red blood cells (PRBC) transfusion, hemoglobin is stable at 9.9. No further need of blood transfusion. 3. Chronic lower extremity edema. Continue current dose of torsemide 30 mg daily.
[2018-08-10 16:00] VITALS: BP 140/75
[2018-08-10 19:00] LABS: CK-MB VALUE MASS 2.8 NG/ML (<3.6); MB/CK RELATIVE INDEX 3.18 (< OR =4); TROPONIN I 0.2 NG/ML (< 0.10)
[2018-08-10] MEDS ORDERED: HumaLOG INSULIN (NovoLOG) PER UNIT SC SCH (21:00)
[2018-08-10 22:00] VITALS: BP 125/75
[2018-08-11 00:22] LABS: HEMATOCRIT 30.2 % (36.0-47.0); HEMOGLOBIN 10.2 g/dl (12.0-15.5)
[2018-08-11 01:10] LABS: CK-MB VALUE MASS 2.4 NG/ML (<3.6); MB/CK RELATIVE INDEX 2.5 (< OR =4); TROPONIN I 0.11 NG/ML (< 0.10)
[2018-08-11 06:00] VITALS: BP 131/58
[2018-08-11 06:16] LABS: TROPONIN I 0.06 NG/ML (< 0.10)
[2018-08-11] MEDS: SLF 3 ML SYR IV SCH (06:34)
[2018-08-11] MEDS: LEVOTHYROXINE 112MCG TABLET (0.112MG) PO SCH (06:34)
[2018-08-11] MEDS: HumaLOG INSULIN (NovoLOG) PER UNIT SC SCH (07:30)
--- NOTE | 2018-08-11 07:52 | REP ---
Clinical: Trauma. Fall. Technique: AP, lateral, bilateral oblique and sunrise views of the left knee. Findings: Mild/early moderate tricompartmental osteoarthritic degenerative changes are appreciated. No definite acute fracture identified. Impression: Limited by osteopenia and degenerative changes. No definite acute fracture. If the patient remains symptomatic consider reevaluation including CT or MRI based on symptomatology. Electronically Signed by John King MD 08/11/2018 07:43 A
[2018-08-11] MEDS: SYMBICORT 160/4.5MCG INHALER 6GM INH SCH (08:02)
[2018-08-11 08:23] VITALS: BP 133/91
[2018-08-11 08:55] LABS: BASO # 0.1 10^3/uL (0.0-0.2); BASO % 0.4 % (0.0-1.0); EOS # 0.4 10^3/uL (0.0-0.50); EOS % 3.3 % (0.0-3.0); HEMATOCRIT 29.9 % (36.0-47.0); HEMOGLOBIN 9.8 g/dl (12.0-15.5); LYMPH # 1.7 10^3/uL (1.5-4.5); LYMPH % 13.6 % (24.0-44.0); MEAN CORPUSCULAR HEMOGLOBIN 30.8 pg (27.0-33.0); MEAN CORPUSCULAR HGB CONC 32.8 g/dl (32.0-36.5); MONO # 1.2 10^3/uL (0.0-0.8); NEUTROPHILS # 9.3 10^3/uL (1.8-7.7); NEUTROPHILS % 73.3 % (36.0-66.0); PLATELET COUNT, AUTOMATED 200 10^3/uL (150-450); RED BLOOD COUNT 3.18 10^6/uL (4.00-5.40); WHITE BLOOD COUNT 12.7 10^3/uL (4.0-10.0)
[2018-08-11 09:00] VITALS: BP 133/91
[2018-08-11] MEDS: METOPROLOL TART 50 MG TAB PO SCH (09:00)
[2018-08-11] MEDS: DOCUSATE SODIUM 100 MG CAP PO SCH (09:00)
[2018-08-11] MEDS ORDERED: HEPARIN 1,000 UNITS/ML 10ML VIAL (FOR RADIOLOGY& DIALYSIS ONLY) IV ONE (10:00)
[2018-08-11] MEDS ORDERED: HEPARIN 1,000 UNITS/ML 10ML VIAL (FOR RADIOLOGY& DIALYSIS ONLY) XX ONE (10:00)
[2018-08-11 10:05] LABS: ALBUMIN 2.6 GM/DL (3.2-5.2); BILIRUBIN,TOTAL 0.4 MG/DL (0.2-1.0); CALCIUM LEVEL 8.1 MG/DL (8.8-10.2); CREATININE FOR GFR 3.08 MG/DL (0.55-1.30); MAGNESIUM LEVEL 1.9 MG/DL (1.8-2.4); POTASSIUM SERUM 3.3 MEQ/L (3.5-5.1); TOTAL PROTEIN 6.5 GM/DL (6.4-8.2)
[2018-08-11] MEDS: ATORVASTATIN 20 MG TAB PO SCH (10:08)
[2018-08-11] MEDS: FERROUS SULFATE 325MG TAB PO SCH (10:08)
[2018-08-11] MEDS: VITAMIN D 1,000 INTERNATIONAL UNITS TABLET PO SCH (10:08)
[2018-08-11] MEDS: OMEPRAZOLE 20 MG CAP PO SCH (10:08)
[2018-08-11] MEDS: TORSEMIDE 20 MG TAB PO SCH (10:09)
[2018-08-11] MEDS: ASPIRIN 81 MG ENTERIC TAB PO SCH (10:09)
[2018-08-11] MEDS: CALCITRIOL 0.25 MCG CAP (S0169) PO SCH (10:09)
--- NOTE | 2018-08-11 11:01 | DS.PDOC ---
Discharge Summary General Date of Admission Aug 08, 2018 at 21:46 Date of Discharge 08/11/2018 Discharge Summary PROCEDURES PERFORMED DURING STAY: PermCath placement with Dr. Benito on 08/10/2018 ADMITTING DIAGNOSES / DISCHARGE DIAGNOSES: Acute blood loss anemia - likely 2/2 bleeding from L arm AVF ESRD on HD Left bundle-branch block IDDM2 HTN Chronic Diastolic CHF DLP Asthma DIXON on CPAP CAD s/p stent (2013) Hypothyroidism GERD DVT prophylaxis COMPLICATIONS/CHIEF COMPLAINT: Shortness of breath / Dialysis malfunction HISTORY OF PRESENT ILLNESS: Patient is a 68-year-old female with a PMHx of ESRD on HD (MWF), HTN, DLP, DM2, Asthma, Chronic Diastolic CHF, CAD s/p stent (2013), Hypothyroidism, who presented to the ER after she was found to have a near-syncopal episode after a procedure. She reported that on Tuesday she was having problems with her fistula causing clots in the dialysis machine and she was subsequent sent for a fistulogram with Dr. Benito. Her procedure, patient began to experience some bleeding .Pressure dressing was applied. However, patient became hypotensive and diaphoretic and was sent to the emergency room for further evaluation. Patient was admitted to hospital service for further evaluation and treatment. Vascular surgery and nephrology were called on consultation. HOSPITAL COURSE: Acute blood loss anemia - likely 2/2 bleeding from L arm AVF - Continue patient is an improvement in her blood count - s/p 2 unit PRBC; Hg has improved appropriately - Vascular surgery on consultation ESRD on HD - Patient has received dialysis on Tuesday and on - s/p PermaCath placement with Dr. Benito on 08/10/18 - Will go for outpatient HD today - Nephrology is on consultation Left bundle-branch block - Has a known history of this and follows with cardiology as an outpatient, Dr. Burton - Patient has a Holter monitor placed IDDM2 - c/w ISS and Levemir HTN - BP well controlled - c/w Metoprolol and Torsemide Chronic Diastolic CHF - no evidence of fluid overload - c/w Torsemide DLP - c/w atorvastatin Asthma - c/w inhaled therapy as ordered DIXON on CPAP - may allow home CPAP use while inpatient CAD s/p stent (2013) - c/w ASA 81, Atorvastatin Hypothyroidism - c/w Levothyroxine GERD - c/w Omeprazole DVT prophylaxis - c/w SCDs/RAFA DISCHARGE MEDICATIONS: Please see below. ALLERGIES: Please see below. PHYSICAL EXAMINATION ON DISCHARGE: Vitals (See below) General: Lying in bed, no acute distress, comfortable, AAOx3 HEENT: NC, AT CVS: RRR, +S1S2, Chest wall PermaCath with dressing in place Lungs: Fair air entry b/l, there are no appreciable rhonchi, rales or wheezing Abdomen: Remains soft, remains soft without distention or tenderness Extremities: No evidence of edema, - Calf tenderness, left arm AV fistula with pressure dressing intact LABORATORY DATA: Please see below. ACTIVITY: [As tolerated]. DISCHARGE PLAN: Follow up with Dr. Aggie Mujica, Dr. Benito Remain compliant with treatment plan and medications Return to the ER if you experience any problems DISPOSITION: Home with services DISCHARGE CONDITION: [Stable]. TIME SPENT ON DISCHARGE: 35 minutes Vital Signs/I&Os Vital Signs Date Time Temp Pulse Resp B/P (MAP) Pulse Ox O2 Delivery O2 Flow Rate FiO2 08/11/18 09:00 74 133/91 08/11/18 06:00 98.1 15 99 08/09/18 08:00 2.0 08/08/18 17:56 Room Air I&O- Last 24 Hours up to 6 AM 08/11/18 06:00 Intake Total 1080 ml Output Total 2925 ml Balance -1845 ml Laboratory Data Labs 24H Laboratory Tests 2 08/10/18 16:03: Bedside Glucose (Misc Panel) 113 08/10/18 18:13: Total Creatine Kinase 88, Creatine Kinase MB 2.8, Creatine Kinase MB Relative Index 3.18, Troponin I 0.20#H 08/10/18 20:11: Bedside Glucose (Misc Panel) 158H 08/11/18 00:17: Total Creatine Kinase 96, Creatine Kinase MB 2.4, Creatine Kinase MB Relative Index 2.50, Troponin I 0.11#H 08/11/18 05:24: Immature Granulocyte % (Auto) 0.4, White Blood Count 12.7H, Red Blood Count 3.18L, Hemoglobin 9.8L, Hematocrit 29.9L, Mean Corpuscular Volume 94.0, Mean Corpuscular Hemoglobin 30.8, Mean Corpuscular Hemoglobin Concent 32.8, Red Cell Distribution Width 16.2H, Platelet Count 200, Neutrophils (%) (Auto) 73.3H, Lymphocytes (%) (Auto) 13.6L, Monocytes (%) (Auto) 9.0H, Eosinophils (%) (Auto) 3.3H, Basophils (%) (Auto) 0.4, Neutrophils # (Auto) 9.3H, Lymphocytes # (Auto) 1.7, Monocytes # (Auto) 1.2H, Eosinophils # (Auto) 0.4, Basophils # (Auto) 0.1, Nucleated Red Blood Cells % (auto) 0.0, Anion Gap 13, Glomerular Filtration Rate 16.0L, Blood Urea Nitrogen 29#H, Creatinine 3.08H, Sodium Level 139, Potassium Level 3.3#L, Chloride Level 105, Carbon Dioxide Level 21, Calcium Level 8.1L, Aspartate Amino Transf (AST/SGOT) 16, Alanine Aminotransferase (ALT/SGPT) 18, Alkaline Phosphatase 86, Total Bilirubin 0.4, Total Protein 6.5, Albumin 2.6L, Magnesium Level 1.9, Troponin I 0.06#, Albumin/Globulin Ratio 0.67L CBC/BMP Laboratory Tests 08/11/18 00:17 08/11/18 05:24 Red Blood Count 3.18 L, Mean Corpuscular Volume 94.0, Mean Corpuscular Hemoglobin 30.8, Mean Corpuscular Hemoglobin Concent 32.8, Red Cell Distribution Width 16.2 H, Neutrophils (%) (Auto) 73.3 H, Lymphocytes (%) (Auto) 13.6 L, Monocytes (%) (Auto) 9.0 H, Eosinophils (%) (Auto) 3.3 H, Basophils (%) (Auto) 0.4, Neutrophils # (Auto) 9.3 H, Lymphocytes # (Auto) 1.7, Monocytes # (Auto) 1.2 H, Eosinophils # (Auto) 0.4, Basophils # (Auto) 0.1, Calcium Level 8.1 L, Aspartate Amino Transf (AST/SGOT) 16, Alanine Aminotransferase (ALT/SGPT) 18, Alkaline Phosphatase 86, Total Bilirubin 0.4, Total Protein 6.5, Albumin 2.6 L FSBS Laboratory Tests Test 08/10/18 16:03 08/10/18 20:11 Range/Units Bedside Glucose (Misc Panel) 113 158 80-115 MG/DL Discharge Medications Scheduled Aspirin (Aspirin EC) 81 Mg Tab, 81 MG PO DAILY, (Reported) Atorvastatin Calcium (Atorvastatin Calcium) 40 Mg Tab, 40 MG PO DAILY, (Reported) ON HOLD Azelastine HCl (Azelastine HCl) 0.15 % Spr, 1 SPRAY NA BID, (Reported) Budesonide/Formoterol (Symbicort 160-4.5 Mcg Inhaler) 6 Gm Hfa.aer.ad, 2 PUFF INH BID, (Reported) Calcitriol (Calcitriol) 0.25 Mcg Cap, 0.25 MCG PO DAILY, (Reported) Cholecalciferol (Vitamin D3) (Vitamin D3) 1,000 Unit Capsule, 1,000 UNIT PO DAILY, (Reported) Dulaglutide (Trulicity) 1.5 Mg/0.5 Ml Pen.injctr, 1.5 MG SC 1XWK, (Reported) FRIDAYS Ferrous Sulfate (Iron) 325 Mg Tablet, 325 MG PO DAILY, (Reported) Insulin Degludec (Tresiba Flextouch U-200) 200 Unit/1 Ml Insuln.pen, 80 UNITS SQ DAILY, (Reported) Insulin Lispro (Humalog) 100 Unit/1 Ml Cartridge, 15 UNITS SC AC, (Reported) Levothyroxine Sodium (Levothyroxine Sodium) 112 Mcg Tab, 112 MCG PO DAILY, (Reported) Metoprolol Tartrate (Metoprolol Tartrate) 50 Mg Tablet, 50 MG PO BID, (Reported) ON HOLD Omeprazole (Omeprazole) 20 Mg Tab, 20 MG PO DAILY, (Reported) Torsemide (Torsemide) 20 Mg Tablet, 40 MG PO DAILY, (Reported) Torsemide (Torsemide) 20 Mg Tablet, 30 MG PO QPM, (Reported) 1500 Scheduled PRN Albuterol Sulfate (Ventolin Hfa) 108 Mcg/Act Aer, 2 PUFFS INH QID PRN for SHORTNESS OF BREATH, (Reported) Dextrose (Glucose) 4 Gm Chw, 4 GM PO ASDIRECTED PRN for BLOOD SUGAR < 50, (Reported) Loperamide HCl (Imodium A-D) 2 Mg Tablet, 2 MG PO DAILY PRN for DIARRHEA, (Reported) Nitroglycerin (Nitrostat) 0.4 Mg Subl, 0.4 MG SL NITRO PRN for CHEST PAIN, (Reported) Allergies Coded Allergies: cephalexin (Verified Allergy, Severe, RASH, DYSPNEA, 05/09/18) gatifloxacin (Verified Allergy, Severe, RASH, DYSPNEA, 05/09/18) tramadol (Verified Allergy, Severe, RASH, DYSPNEA, 05/09/18) nitrofurantoin (Verified Allergy, Mild, RASH, 05/09/18) latex (Verified Allergy, Unknown, 05/09/18) sulfamethoxazole (Verified Adverse Reaction, Intermediate, EFFECTS KIDNEY FUNCTION, 05/09/18) trimethoprim (Verified Adverse Reaction, Intermediate, EFFECTS KIDNEY FUNCTION, 05/09/18) RAYMOND GROVES MD Aug 11, 2018 11:01
--- NOTE | 2018-08-11 11:18 | ECGEPIP ---
[facility] Test Date: 2018-08-10 Pat Name: MARYBETH HERNADEZ Department: Room: [place] [address] Gender: Female [employer] Supervisor: MIKEY : [id number] Requested By: RAYMOND GROVES Order Number: [id number] Reading MD: Kristin Escobedo Measurements Intervals [place] Rate: 71 P: 69 MS: 149 QRS: 1 QRSD: 153 T: 177 QT: 449 QTc: 489 Interpretive Statements SINUS RHYTHM LEFT BUNDLE BRANCH BLOCK NO CHANGE COMPARED TO 08/08/18 Electronically Signed on 08-11-2018 11:17:57 EDT by Kristin Escobedo
--- NOTE | 2018-08-11 15:31 | IPN ---
DATE: 08/11/2018 SUBJECTIVE: The patient was seen and examined at the bedside this morning. She is afebrile, hemodynamically stable. She was dialyzed yesterday after replacement of the tunneled hemodialysis catheter. She denies any active complaints. OBJECTIVE: Vital signs: Temperature is 98.1 degrees Fahrenheit, blood pressure 133/91, pulse is 74, respiratory of 15, saturating 99% on room air. Intake and output: Urine output recorded are 475 mL, ultrafiltration with hemodialysis was 2 liters. Weight on the bed scale is not available. PHYSICAL EXAMINATION: General: The patient is awake, alert, oriented times three. She is laying in bed in no apparent distress. Head and neck exam: Extraocular muscles intact. Pupils equally round and reactive to light. Mucous membranes are moist. Neck is supple. She has a left IJ tunneled hemodialysis catheter. Cardiovascular: S1, S2. Regular rate. No murmur, rub or gallop. Respiratory: Chest is clear to auscultation bilaterally. Bilateral equal air entry. No rales or rhonchi. Abdomen: Soft. Positive bowel sounds. Nontender. No organomegaly. Musculoskeletal: No clubbing or cyanosis. Pulses are 2+. Central nervous system (MOLDER LABELS): No focal deficit. Power is 5/5 in all extremities. LABORATORY REVIEW: CBC showed WBC 12.7, hemoglobin 9.8, platelets are 200. BMP showed sodium 139, potassium 3.3, chloride 105, bicarbonate 21, BUN 29, creatinine is 3. ASSESSMENT/PLAN: 1. End-stage renal disease on hemodialysis. The patient was dialyzed yesterday after placement of catheter. Today is the patient's regular day of dialysis. She will be dialyzed as outpatient today. She has a chair available at [facility]. 2. Acute blood loss anemia. The patient got packed red blood cell transfusion. Hemoglobin level is stable. Rest of anemia management will be done as outpatient with Eliseo. 3. Lower extremity edema. Continue current dose of torsemide. The patient will get further fluid removal with dialysis today. 4. Hypokalemia. I have talked to the dialysis center, they will dialyze her with a 3K bath instead of her regular 2K bath.
--- NOTE | 2018-08-11 17:19 | ROOPDOC ---
[facility] Report Of Operation Report of Operation DATE OF PROCEDURE: 08/10/2018 PREPROCEDURE DIAGNOSES: End-stage renal disease requiring access for renal replacement therapy. Thrombosed left brachiocephalic arteriovenous fistula. POSTPROCEDURE DIAGNOSES: End-stage renal disease requiring access for renal replacement therapy. Thrombosed left brachiocephalic arteriovenous fistula. PROCEDURE: Ultrasound right internal jugular vein evaluation. Ultrasound guided left internal jugular vein cannulation. Fluoroscopic guided left internal jugular vein 19 cm tip to cuff tunneled central venous catheter insertion. ATTENDING SURGEON: DR. Patito Benito M.D. ASSOCIATE MANAGER: None INDICATION:Patient is an 68-year-old female who has renal failure who requires access for renal replacement therapy. Patient presented with thrombosed left brachiocephalic arteriovenous fistula which underwent thrombolysis and has had recurrent thrombosis. Patient requires access to undergo renal replacement therapy via hemodialysis. Patient will undergo ultrasound and fluoroscopic guided placement of a left internal jugular vein tunneled central venous catheter. The procedure was described and explained to the patient in detail including drawing of pictures demonstrating the procedure and anatomy. Risks, benefits and alternative treatment options were discussed with the patient. A lternative treatment options included but were not limited to no intervention. Benefits included but were not limited to access for hemodialysis until permanent access for renal replacement therapy is created. Risks included, but were not limited to infection, bleeding, pneumothorax, hemothorax, cannulation site deep venous thrombosis, possible need for open surgical intervention, allergic reaction or complication from prepping and draping materials, possible need for transfusion of blood products, anesthetic complications, cerebrovascular accident, myocardial infarction, pulmonary embolus, deep venous thrombosis, loss of limb, loss of life, poor satisfaction and poor outcome. Risks of not performing the procedure included but were not limited to inability to obtain renal replacement therapy via hemodialysis and . The patient's questions were answered. The patient voices understanding of these risks, benefits and alternative treatment options. The patient voices acceptance of the risks associated with the procedure and agrees to proceed with an ultrasound and fluoroscopic guided left internal jugular vein tunneled central venous catheter insertion. There were no promises or guarantees made to the patient regarding the outcome or results of the procedure. ANESTHESIA: Local MAC with 20 mL of 1% lidocaine mixed with 0.5% Marcaine. EBL: 15 ml. IVF: 100 ml. FLUORO TIME: 0.1 minutes. CONTRAST: None. COMPLICATIONS: None. DRAINS: None. SPECIMENS: None. IMPLANTS: Left internal jugular vein tunneled central venous catheter with use of a 23 cm tip to cuff [place] hemodialysis catheter. DESCRIPTION OF PROCEDURE: Patient was taken to the angiography suite, placed supine on the angiography room table and then prepped and draped in a standard surgical fashion. A timeout was conducted by myself and the team members in the room confirming the correct patient, procedure and laterality. Ultrasound was used to evaluate the right internal jugular vein which was noted to be severely stenotic just above the clavicle with the cervical internal jugular vein noted to be widely patent, easily compressible and free of thrombus. Due to the high- grade stenosis in the right internal jugular vein and the plan for a future right upper extremity arteriovenous access the decision was made to proceed with a left internal jugular vein tunneled central venous catheter. Ultrasound guidance was used to cannulate the left internal jugular vein using a micropuncture needle after anesthetizing the overlying skin and subcutaneous tissue with 1% lidocaine mixed with 0.5% Marcaine. The cannulation of the left internal jugular vein was performed with real-time concurrent visualization of the entry of the micropuncture needle into the left internal jugular vein with a hardcopy image preserved. The ultrasound showed the left internal jugular vein to be widely patent, easily compressible and free of thrombus. The micropuncture wire was advanced through the micropuncture needle which was upsized to a micropuncture sheath. An Amplatz wire was advanced through the micropuncture sheath which was then used to sequentially dilate the left internal jugular vein under fluoroscopic guidance. An introducer sheath was then placed over the Amplatz wire and the wire was removed. The catheter was tunneled through a puncture wound in the left chest after anesthetizing the overlying skin and subcutaneous tissue with 1% lidocaine mixed with 0.5% Marcaine and brought out through a puncture wound at the left internal jugular vein entry site. The catheter was then advanced through the introducer sheath which had been positioned under fluoroscopic guidance. The catheter was positioned under fluoroscopic guidance with the tip in the superior vena cava right atrial junction. Both ports of the catheter were aspirated, noted to aspirate easily and then flushed with heparinized saline. The catheter was secured to the left anterior chest wall using #2-0 Prolene suture after anesthetizing the overlying skin and subcutaneous tissue with 1% lidocaine mixed with 0.5% Marcaine. The puncture wound in the left neck was closed using #4-0 Monocryl in inverted interrupted fashion. Steri-Strips and dressings were applied. The patient tolerated the procedure well. All instrument, sponge and needle counts were correct at the end of the case. There were no complications. Dr. Benito was present for and directed the entire case. Patient was transferred to the recovery area and subsequently to the floor in stable condition. The tunneled central venous catheter is stable for use for hemodialysis access. RADIOLOGIC SUPERVISION AND INTERPRETATION: The right internal jugular vein was evaluated using ultrasound guidance and there was noted to be a high-grade stenosis in these internal jugular vein just above the clavicle. The right i nternal jugular vein above the stenosis in the cervical portion was widely patent, easily compressible and free of thrombus. The ultrasound of the left internal jugular vein showed the left internal jugular vein to be easily compressible, widely patent and free of thrombus. Ultrasound was used to guide cannulation of the left internal jugular vein with real-time concurrent visuali zation of the entry of the needle into the left internal jugular vein with a hardcopy image preserved. Fluoroscopic guidance was then used to sequentially dilate the left internal jugular vein, place and introducer sheath and position the catheter with the tip in the superior vena cava/right atrial junction. Final fluoroscopic image showed the catheter to be in good position and good alignment with no pneumo- or hemothorax noted with the tip in the superior vena cava/right atrial junction. The tunneled central venous catheter is stable for use for hemodialysis access. PLAN: The left internal jugular vein tunneled central venous catheter stable for use. The patient has a thrombosed left brachiocephalic arteriovenous fistula which has undergone multiple interventions and thrombolysis in an attempt to maintain patency. The patient will require new access created in the right upper extremity and will use her left internal jugular vein tunneled central venous catheter for hemodialysis access until the new permanent access is created and stable for use. Craig Benito MD Aug 11, 2018 17:19
--- NOTE | 2018-08-16 15:02 | REPIR ---
DATE OF PROCEDURE: 08/08/2018 ATTENDING SURGEON: Dr. Patito Benito ASSISTANTS: Cynthia Diaz and Mary Garcia. PREOPERATIVE DIAGNOSES: End-stage renal disease, thrombosed left brachiocephalic arteriovenous fistula. POSTOPERATIVE DIAGNOSES: End-stage renal disease, thrombosed left brachiocephalic arteriovenous fistula. PROCEDURE: Left brachiocephalic arteriovenous fistulogram and thrombolysis, left brachial artery cephalic vein angioplasty with 6 x 100 balloon, left cephalic vein and subclavian vein angioplasty with 8 x 20 balloon. INDICATION: The patient is a 68-year-old female with a thrombosed left brachiocephalic arteriovenous fistula, who will undergo angioplasty and/or thrombolysis. ANESTHESIA: Was local. ESTIMATED BLOOD LOSS: Minimal. FLUOROSCOPY TIME: 3.4 minutes. CONTRAST: 6 mL. HEPARIN: None. COMPLICATION: None. DRAINS: None. SPECIMENS: None. IMPLANTS: None. PROCEDURE: The patient was taken to the angiography suite, placed supine on the angiography room table and then prepped and draped in a standard surgical fashion. The fistula was cannulated and noted to be thrombosed. A wire was advanced through the fistula and two sheaths were placed and TPN heparin were given, and then, the fistula was ballooned with the brachial artery and cephalic vein being angioplasty with a 6 x 100 balloon, the entire length of the cephalic vein and subclavian vein being angioplastied with an 8 x 20 balloon. A completion fistulogram showed the fistula to be patent with good flow through the fistula. Sheaths were removed and #2-0 Prolene sutures were placed at the puncture site for hemostasis. Dressings were then applied. The patient tolerated the procedure well. All instrument, sponge and needle counts were correct at the end of the case. There were no complications. Dr. Benito was present for and directed the entire case. The patient was transferred to the holding area and subsequently discharged in stable condition.
== END 2018-08-11 11:22 | disposition home or self-care (01) | DRG 314 ==
LOC: M ED 17:37 → M ED INP 21:46 → M PCU 23:20 → M MSPAV 08-09 15:37
PROVIDERS: ADMIT Family Medicine; ATTEND Internal Medicine
PROC: 30233N1 Transfusion of Nonautologous Red Blood Cells into Peripheral Vein, Percutaneous Approach (ICD-10-PCS; principal; 2018-08-09)
PROC: 02HV33Z Insertion of Infusion Device into Superior Vena Cava, Percutaneous Approach (ICD-10-PCS; 2018-08-10)
PROC: 0JH63XZ Insertion of Tunneled Vascular Access Device into Chest Subcutaneous Tissue and Fascia, Percutaneous Approach (ICD-10-PCS; 2018-08-10)
PROC: 5A1D70Z Performance of Urinary Filtration, Intermittent, Less than 6 Hours Per Day (ICD-10-PCS; 2018-08-10)
DX: T82.868A Thrombosis due to vascular prosthetic devices, implants and grafts, initial encounter (principal); N18.6 End stage renal disease; D62 Acute posthemorrhagic anemia; I13.2 Hypertensive heart and chronic kidney disease with heart failure and with stage 5 chronic kidney disease, or end stage renal disease; I50.32 Chronic diastolic (congestive) heart failure; T81.83XA Persistent postprocedural fistula, initial encounter; I97.618 Postprocedural hemorrhage of a circulatory system organ or structure following other circulatory system procedure; K21.9 Gastro-esophageal reflux disease without esophagitis; G47.33 Obstructive sleep apnea (adult) (pediatric); J45.909 Unspecified asthma, uncomplicated; I44.7 Left bundle-branch block, unspecified; I25.10 Atherosclerotic heart disease of native coronary artery without angina pectoris; Z95.2 Presence of prosthetic heart valve; E03.9 Hypothyroidism, unspecified; E11.9 Type 2 diabetes mellitus without complications; Z79.899 Other long term (current) drug therapy; Z79.82 Long term (current) use of aspirin; Z79.4 Long term (current) use of insulin; Z88.2 Allergy status to sulfonamides; Z91.040 Latex allergy status; Z88.8 Allergy status to other drugs, medicaments and biological substances; R55 Syncope and collapse; E78.5 Hyperlipidemia, unspecified; E87.6 Hypokalemia; Y83.8 Other surgical procedures as the cause of abnormal reaction of the patient, or of later complication, without mention of misadventure at the time of the procedure

== ENCOUNTER → 2018-08-08 | Outpatient (CLI) | payer MEDICARE ==
[~2018-08-08] MED LIST changes: +ALTEPLASE 2 MG/2 ML VIAL (J2997 PER 1MG) As Ordered ONE; +BUPIVACAINE HCL 0.5% 10 ML VIAL As Ordered ONE; +DEXTROSE 50% 50 ML SYRINGE As Ordered ONE; +HEPARIN 1,000 UNITS/ML 10ML VIAL (FOR RADIOLOGY& DIALYSIS ONLY) As Ordered ONE; +HUMA100I3 SC; +ISOVUE-300 61% 50ML VIAL (Q9967) As Ordered ONE; +LIDOCAINE 2% INJ 100 MG/5 ML SDV (FOR ANES.) As Ordered ONE; +LIDOCAINE 2% MDV 20 ML VIAL As Ordered ONE; +LOPE2TAB11 PO; +PROPOFOL 200 MG/20 ML VIAL As Ordered ONE; +PROTAMINE SULF INJ 50 MG/5 ML VIAL (J2720) As Ordered ONE; +TRES1INJ SQ
--- NOTE | 2018-08-16 15:02 | REPIR ---
DATE OF PROCEDURE: 08/08/2018 ATTENDING SURGEON: Dr. Patito Benito ASSISTANTS: Cynthia Diaz and Mary Garcia. PREOPERATIVE DIAGNOSES: End-stage renal disease, thrombosed left brachiocephalic arteriovenous fistula. POSTOPERATIVE DIAGNOSES: End-stage renal disease, thrombosed left brachiocephalic arteriovenous fistula. PROCEDURE: Left brachiocephalic arteriovenous fistulogram and thrombolysis, left brachial artery cephalic vein angioplasty with 6 x 100 balloon, left cephalic vein and subclavian vein angioplasty with 8 x 200 balloon. INDICATION: The patient is a 68-year-old female with a thrombosed left brachiocephalic arteriovenous fistula, who will undergo angioplasty and/or thrombolysis. ANESTHESIA: Was local. ESTIMATED BLOOD LOSS: Minimal. FLUOROSCOPY TIME: 3.4 minutes. CONTRAST: 6 mL. HEPARIN: None. COMPLICATION: None. DRAINS: None. SPECIMENS: None. IMPLANTS: None. DESCRIPTION OF PROCEDURE: Patient was taken to the angiography suite, placed supine on the angiography room table, and then prepped and draped in a standard surgical fashion. The fistula was cannulated and noted to be thrombosed. A wire was advanced through the fistula and two sheaths were placed, and tissue plasminogen activator (tPA) and heparin were given. Then, the fistula was ballooned with the brachial artery and cephalic vein being angioplastied with a 6 x 100 balloon, the entire length of the cephalic vein and subclavian vein being angioplastied with an 8 x 200 balloon. A completion fistulogram showed the fistula to be patent with good flow through the fistula. Sheaths were removed, and #2-0 Prolene sutures were placed at the puncture sites for hemostasis. Dressings were then applied. Patient tolerated the procedure well. All instrument, sponge, and needle counts were correct at the end of the case. There were no complications. Dr. Benito was present for and directed the entire case. Patient was transferred to the holding area and subsequently discharged in stable condition. Edited: [facility] 08/18/2018 1949
== END ==
LOC: M IRPRO 12:44
PROVIDERS: ATTEND Surgery Vascular Surgery
DX: N18.6 End stage renal disease (principal); T82.868A Thrombosis due to vascular prosthetic devices, implants and grafts, initial encounter; X58.XXXA Exposure to other specified factors, initial encounter

== ENCOUNTER → 2018-09-19 | Outpatient (CLI) | payer MEDICARE ==
[~2018-09-19] MED LIST changes: +HUMA100I3 SC; -LOPE-1 PO; +LOPE-39 PO; +LOPE2TAB12 PO; +TRES1INJ SQ
--- NOTE | 2018-09-19 18:05 | REP ---
BILATERAL VEIN MAPPING PRE AVF: 09/19/2018. Local history: 94. The fistula., end-stage renal disease. Left upper extremity: The patient has an AV fistula on the left which is occluded with thrombus. There is thrombus in the left subclavian, axillary and cephalic vein proximal to distal. Right upper extremity: VENOUS Basilic (mm) Cephalic (mm) Proximal humerus: 7.3 4.0 Distal humerus: 6.4 4.7 Upper forearm: 3.0 2.2 Lower forearm/wrist: 1.8 2.5 ARTERIAL: PSV Waveform Size (mm) Axillary: 119 cm/S triphasic 5.2 Brachial 111 cm/S triphasic 4.5 Radial: 96.3 cm/S triphasic 2.2 Ulnar: 90.9 cm/S triphasic 2.5 Electronically Signed by August Amezquita MD 09/19/2018 05:56 P
== END ==
LOC: M RAD 12:48
PROVIDERS: ATTEND Physician Assistant
DX: N18.6 End stage renal disease (principal); Z01.818 Encounter for other preprocedural examination

== ENCOUNTER 2018-10-31 07:54 | Day surgery (SDC) | payer MEDICARE ==
[~2018-10-31] VITALS: Ht 157.5 cm; Wt 85.9 kg
[~2018-10-31 07:54] MED LIST changes: +LIDOCAINE 1% MDV 20ML VIAL SQ PRN; +NS 1,000 ML IV ONE
[2018-10-31] MEDS ORDERED: D5W/0.9% SODIUM CHLORIDE 1,000 ML IV ONE (09:00)
[2018-10-31] MEDS ORDERED: PROPOFOL 500 MG/50 ML VIAL As Ordered ONE (13:07)
[2018-10-31] MEDS ORDERED: LIDOCAINE 2% INJ 100 MG/5 ML SDV (FOR ANES.) As Ordered ONE (13:07)
[2018-10-31] MEDS ORDERED: ONDANSETRON 4MG/2ML VIAL (J2405) As Ordered ONE (13:07)
[2018-10-31] MEDS ORDERED: fentaNYL 100 MCG/2 ML INJECTION (J3010) As Ordered ONE (13:08)
[2018-10-31] MEDS ORDERED: MIDAZOLAM INJ 2 MG/2 ML VIAL (J2250) As Ordered ONE (13:08)
[2018-10-31] MEDS ORDERED: HEPARIN SOD (PORCINE) 5000 UNITS/ML VIAL As Ordered ONE ×2 (13:10→13:11)
[2018-10-31] MEDS ORDERED: BUPIVACAINE HCL 0.5% 30 ML VIAL As Ordered ONE (13:11)
[2018-10-31] MEDS ORDERED: LIDOCAINE 1% SDV INJ 30 ML VIAL As Ordered ONE (13:11)
[2018-10-31] MEDS ORDERED: LIDOCAINE 2% MDV 20 ML VIAL As Ordered ONE (13:12)
[2018-10-31 15:30] VITALS: BP 129/58
--- NOTE | 2018-11-02 21:19 | ROOPDOC ---
[facility] Report Of Operation Report of Operation DATE OF PROCEDURE: PREOPERATIVE DIAGNOSES: [End-stage renal disease.] POSTOPERATIVE DIAGNOSES: [End-stage renal disease.] PROCEDURE: Right brachiocephalic autogenous arteriovenous fistula creation. SURGEON: Dr. Patito Benito M.D. RN AMBULATORY: INDICATION: [ ] Patient was evaluated and recommendation was to undergo an autogenous right brachiocephalic arteriovenous fistula creation. The procedure was explained and described to the patient in detail including drawing of pictures delineating the surgery and the anatomy. Risks, benefits and alternative treatment options were discussed with the patient. Benefits included but were not limited to having a functioning arteriovenous fistula allowing for removal of the current tunneled central venous catheter being used for dialysis access. Alternative treatment options included but were not limited to no intervention with continued use of the tunneled central venous catheter for he modialysis access. Risks included but were not limited to infection, bleeding, failure of autogenous arteriovenous fistula to maintain patency with thrombosis, failure of arteriovenous fistula to mature requiring secondary intervention, steal syndrome, possible need for further open surgical intervention, complication reaction to the prepping and draping materials, anesthetic complication, possible need for transfusion of blood products, scarring, bruising, nerve injury, cerebrovascular accident, myocardial infarction, pulmonary embolus , deep venous thrombosis, sedation related complication, loss of limb, loss of life, poor satisfaction and poor outcome. Patient's questions were answered. Patient voices understanding of these risks, benefits and alternative treatment options. Patient voices understanding of the risks associated with the procedure and consents to proceed with autogenous arteriovenous fistula formation. No guarantees or promises were made regarding the results or outcome of the procedure. ANESTHESIA: [Local Mac.] IVF: mL. ESTIMATED BLOOD LOSS: mL. HEPARIN:[None] PROTAMINE:[None] COMPLICATIONS:[None] DRAINS:[None] SPECIMENS:[None] IMPLANTS:[None] FINDINGS: [ ] DESCRIPTION OF PROCEDURE: Patient was taken to operating room, placed supine on the operating room table, and the patient was prepped and draped in a standard surgical fashion. A time-out was then conducted by myself and the team members in the room confirming the correct patient, procedure and laterality. A tourniquet was then applied to the right upper arm to dilate the cephalic vein along the course of the forearm and upper arm. An incision was then made at the antecubital fossa after the overlying tissue were anesthetized with 1% lidocaine mixed with 0.5 % Marcaine. The cephalic vein and brachial artery were sharply dissected proximally and distally and encircled with vessel loops. The cephalic vein was then transected as far distal as possible with the remnant ligated with a 2-0 silk suture. The cephalic vein was then dilated using heparinized saline. The cephalic vein was brought to the brachial artery and anastomosed to the brachial artery in an end to side fashion using 6-0 Prolene suture after an arteriotomy was made in the brachial artery and elongated with stephenson scissors. There was good flow noted in the fistula at the completion of the anastomosis using Doppler ultrasound. Hemostasis was obtained after which the incision was closed using 4-0 Monocryl to approximate the skin in a running subcuticular fashion. Steri-Strips and dressings were applied. The patient tolerated the procedure well. All instrument, sponge and needle counts were correct at the end of the case. There were no complications. Dr. Benito was present for and directed the entire case. Patient was transferred to the recovery room awake, alert, extubated and in stable condition. The right hand was well perfused with 2+ radial and ulnar pulses palpable at the completion of the procedure. The results of the procedure were discussed with the patient in the recovery room. [The results of the procedure were discussed with the family in the surgical holding area.] Craig Benito MD Nov 02, 2018 21:19
== END 2018-10-31 15:46 | disposition home or self-care (01) ==
LOC: M SDC 07:54
PROVIDERS: ATTEND Surgery Vascular Surgery
DX: N18.6 End stage renal disease (principal); E11.22 Type 2 diabetes mellitus with diabetic chronic kidney disease; I12.0 Hypertensive chronic kidney disease with stage 5 chronic kidney disease or end stage renal disease; I25.119 Atherosclerotic heart disease of native coronary artery with unspecified angina pectoris; I25.2 Old myocardial infarction; E03.9 Hypothyroidism, unspecified; D63.1 Anemia in chronic kidney disease; J45.909 Unspecified asthma, uncomplicated; J30.89 Other allergic rhinitis; R60.0 Localized edema; I42.9 Cardiomyopathy, unspecified; K21.9 Gastro-esophageal reflux disease without esophagitis; M15.0 Primary generalized (osteo)arthritis; M81.0 Age-related osteoporosis without current pathological fracture; G47.30 Sleep apnea, unspecified; R06.83 Snoring; K44.9 Diaphragmatic hernia without obstruction or gangrene; Z91.040 Latex allergy status; Z79.899 Other long term (current) drug therapy; Z79.82 Long term (current) use of aspirin; Z79.4 Long term (current) use of insulin; Z95.5 Presence of coronary angioplasty implant and graft; Z86.718 Personal history of other venous thrombosis and embolism; Z96.1 Presence of intraocular lens; Z98.41 Cataract extraction status, right eye; Z98.42 Cataract extraction status, left eye; Z99.2 Dependence on renal dialysis; Z78.0 Asymptomatic menopausal state
CPT/HCPCS: 36415; 36821; 84132; J2250; J2405; J3010

== ENCOUNTER → 2018-11-23 | Outpatient (CLI) | payer MEDICARE ==
[~2018-11-23] MED LIST changes: -LIDOCAINE 1% MDV 20ML VIAL SQ PRN; -NS 1,000 ML IV ONE; +OMEP-358 PO; -OMEP20TA PO
--- NOTE | 2018-11-24 08:05 | REP ---
Bilateral upper extremity arterial and venous Doppler ultrasound: History: Encounter for preprocedural exam. End-stage renal disease. Right-sided arteriovenous fistula placed September 30. Nonfunctioning left-sided arterial venous fistula placed 1 year ago. Findings: The left-sided cephalic vein in the upper arm is occluded. No other evidence of venous thrombosis. Adjacent to the left cephalic vein at the shoulder anteriorly there is a 1.5 cm cyst. The left arteriovenous fistula is occluded 7 mm from the brachial artery and anastomosis with swirling blood flow. Monophasic wave form is retrieved from the brachial artery and anastomosis with 110 cm/sec velocity. On the right the arteriovenous fistula is patent. Brachial artery to cephalic vein. The brachial arterial side monophasic flow is seen with velocity of 10.4 cm/sec. Mid and anastomosis velocity is 4.5 cm/sec. The cephalic vein at the site of the anastomosis velocity is 5.3 cm/sec flow is felt to be decreased in the right brachial arteriovenous fistula question partial occlusion. Right upper extremity venous diameter chart: Right upper humerus basilic 4.1 mm, cephalic 2.3 mm Lower humerus basilic 2.6 mm, cephalic 2.9 mm Upper forearm basilic 1.7 mm, cephalic 1.4 mm Lower forearm basilic 1.1 mm, cephalic 0.7 mm Median cubital 3.0 mm Left upper extremity venous diameter chart: Left upper humerus basilic 3.4 mm, cephalic occluded Lower humerus basilic 3.7 mm, cephalic occluded Upper forearm basilic 1.8 mm, cephalic 2.2 mm Lower forearm basilic 0.8 mm, cephalic 1.2 mm Median cubital 2.2 mm Right upper extremity arterial velocity and size diameter chart: Axillary artery 123 cm/S, 4.5 mm Brachial artery 117 cm/S, 3.2 mm Radial artery 74 cm/sec, 1.9 mm Ulnar artery 88 cm/sec, 1.4 mm Left upper extremity arterial Doppler velocity and size diameter chart: Axillary artery 124 cm/sec, 3.7 mm Brachial artery 132 cm/sec, 3.6 mm Radial artery 40 cm/sec, 1.6 mm Ulnar artery 68 cm/sec, 1.8 mm Electronically Signed by Adryan Hurt MD 11/24/2018 07:56 A
== END ==
LOC: M RAD 10:51
PROVIDERS: ATTEND Physician Assistant
DX: Z01.818 Encounter for other preprocedural examination (principal); N18.6 End stage renal disease

== ENCOUNTER → 2018-12-19 | Outpatient (CLI) | payer MEDICARE ==
[~2018-12-19] MED LIST changes: +ISOVUE-300 61% 50ML VIAL (Q9967) As Ordered ONE; +LIDOCAINE 1% MDV 20ML VIAL As Ordered ONE; +MIDAZOLAM INJ 2 MG/2 ML VIAL (J2250) As Ordered ONE; +fentaNYL 100 MCG/2 ML INJECTION (J3010) As Ordered ONE
--- NOTE | 2018-12-19 11:40 | ROOPDOC ---
[facility] Report Of Operation Report of Operation DATE OF PROCEDURE: 12/19/18 PREPROCEDURE DIAGNOSES: End-stage renal disease with poor maturation of diminutive diameter right upper extremity brachiocephalic AV fistula POSTPROCEDURE DIAGNOSES: End-stage renal disease with thrombosed right upper extremity brachiocephalic AV fistula PROCEDURE: Ultrasound examination of right brachiocephalic AV fistula SURGEON: Familia Aleman MD ANESTHESIA: None. INDICATION FOR PROCEDURE: Ms. Duran is a 68-year-old patient with end-stage renal disease currently dialyzing with a PermCath due to difficulties with her left upper extremity brachiocephalic AV fistula. She underwent an arteriogram with Dr. Benito and had rupture of the fistula with gross extravasation and extensive hematoma and bruising in the arm and the fistula was subsequently not salvageable. She then had a PermCath placed and a right brachiocephalic AV fistula, but the fistula is extremely diminutive in size. We examined in clinic and it was patent but small and we suggested we try to see if we can gently dilate it up with balloon-assisted maturation, but that there was a possibility it was too small for maturation. Risks benefits and alternatives to a fistulogram with intervention were explained to the patient she was agreeable to proceed. Informed consent was obtained. INTERPRETATION: Initial ultrasound exam of the arm revealed that the fistula was not only still diminutive in size but also thrombosed and not viable. The wall of the vein was thickened and very small. This will not be suitable for maturation and use for AV access. The brachial artery is widely patent. No fistulogram was performed. REPORT OF OPERATION: Patient was brought to the angiographic suite in stable co ndition. A right M is prepped and draped in a sterile fashion. A timeout was performed. Upon ultrasound examination of the arm prior to access, I noted that the vein was very thickened, diminutive, and thrombosed. The brachial artery is widely patent. I discussed with the patient that I did not feel the fistula was suitable for a thrombectomy and would not mature successfully for AV access. I discussed with her that I feel the best option for her would be a brachial axillary graft. We will schedule her for new access placement. We will plan on using the right upper extremity since left upper extremity is still healing after previous fistula rupture. ESTIMATED BLOOD LOSS: Approximately 0 mL. COMPLICATIONS: None. PLAN: Our plan will be see patient back in clinic to discuss options for brachial axillary graft in the right upper extremity. The benefit of this for this particular patient with very diminutive veins and poor options for autologous access is that the graft will be able to be used for dialysis within 1-2 weeks. Continue using PermCath for dialysis. FAMILIA ALEMAN MD Dec 19, 2018 11:40
[2018-12-19 11:43] VITALS: BP 129/58
== END ==
LOC: M IRPRO 07:42
PROVIDERS: ATTEND Surgery Vascular Surgery
DX: T82.868A Thrombosis due to vascular prosthetic devices, implants and grafts, initial encounter (principal); N18.6 End stage renal disease; X58.XXXA Exposure to other specified factors, initial encounter; Y93.9 Activity, unspecified; Y92.9 Unspecified place or not applicable; Y99.9 Unspecified external cause status
CPT/HCPCS: 93971; C1769; C1894; Q9967

== ENCOUNTER 2019-01-16 14:09 | Day surgery (SDC) | payer MEDICARE ==
[~2019-01-16] VITALS: Ht 142.2 cm; Wt 85.7 kg
[~2019-01-16 14:09] MED LIST changes: -AZEL0.055; +AZEL0.055 NARES; -ISOVUE-300 61% 50ML VIAL (Q9967) As Ordered ONE; -LIDOCAINE 1% MDV 20ML VIAL As Ordered ONE; -MIDAZOLAM INJ 2 MG/2 ML VIAL (J2250) As Ordered ONE; -SIMV40TA2 PO; +SIMV40TA20 PO; +TRES1INJ SC; -TRES1INJ SQ; +VANCOMYCIN HCL 500 MG in D5W MINI-BAG PLUS 100 ML IV SCH; -fentaNYL 100 MCG/2 ML INJECTION (J3010) As Ordered ONE
[2019-01-16] MEDS: D5W/0.2% SODIUM CHLORIDE 1,000 ML IV ONE (15:30)
[2019-01-16] MEDS ORDERED: VIAL MATE ADAPTER XX ONE (15:33)
[2019-01-16] MEDS ORDERED: LIDOCAINE 2% INJ 100 MG/5 ML SDV (FOR ANES.) As Ordered ONE (15:36)
[2019-01-16] MEDS ORDERED: PROPOFOL 200 MG/20 ML VIAL As Ordered ONE (15:36)
[2019-01-16] MEDS ORDERED: ONDANSETRON 4MG/2ML VIAL (J2405) As Ordered ONE (15:37)
[2019-01-16] MEDS ORDERED: dexameTHASONE 4 MG/ML 1ML VIAL (J1100) As Ordered ONE (15:37)
[2019-01-16] MEDS: VANCOMYCIN HCL 1,000 MG, VIAL MATE ADAPTER 1 EACH in D5W 250 ML IV ONE (16:10)
[2019-01-16] MEDS: VANCOMYCIN HCL 500 MG in D5W MINI-BAG PLUS 100 ML IV ONE (16:12)
[2019-01-16] MEDS ORDERED: MIDAZOLAM INJ 2 MG/2 ML VIAL (J2250) As Ordered ONE (16:25)
[2019-01-16] MEDS ORDERED: fentaNYL 100 MCG/2 ML INJECTION (J3010) As Ordered ONE ×2 (16:26→19:34)
[2019-01-16] MEDS ORDERED: ROCURONIUM BROMIDE 50 MG/5 ML VIAL As Ordered ONE (17:17)
[2019-01-16] MEDS ORDERED: ePHEDrine SULFATE 25 MG/5 ML(5MG/ML) SYRINGE As Ordered ONE (18:05)
[2019-01-16] MEDS ORDERED: PHENYLephrine HCL 500 MCG/5 ML (100MCG/ML) SYRINGE (J2370) As Ordered ONE (18:22)
[2019-01-16] MEDS: HEPARIN SOD (PORCINE) 5000 UNITS/ML VIAL As Ordered ONE ×2 (18:22)
[2019-01-16] MEDS ORDERED: SUGAMMADEX SODIUM 500 MG/5 ML VIAL (BRIDION) As Ordered ONE (18:28)
[2019-01-16] MEDS ORDERED: HEPARIN SOD (PORCINE) 5000 UNITS/ML VIAL As Ordered ONE (19:24)
[2019-01-16] MEDS: LIDOCAINE 1% SDV INJ 30 ML VIAL As Ordered ONE (20:21)
[2019-01-16] MEDS ORDERED: OXYC1TAB23 PO (20:32)
[2019-01-16] MEDS ORDERED: PLAV1TAB2 PO (20:37)
[2019-01-16] MEDS ORDERED: fentaNYL 100 MCG/2 ML INJECTION (J3010) IV PRN (20:45)
[2019-01-16] MEDS ORDERED: ONDANSETRON 4MG/2ML VIAL (J2405) IV PRN (20:45)
[2019-01-16] MEDS: NORCO, ANEXSIA 5/325MG TABLET (HYDROcodone/ACETAMINOPHEN) PO PRN (20:50)
--- NOTE | 2019-01-16 20:50 | ROOPDOC ---
[facility] Report Of Operation Report of Operation DATE OF PROCEDURE: 01/16/19 PREPROCEDURE DIAGNOSES: End-stage renal disease requiring access for dialysis POSTPROCEDURE DIAGNOSES: Same PROCEDURE: Right upper extremity brachial axillary artegraft AV access placement SURGEON: Familia Aleman MD ANESTHESIA: Local anesthesia 15 mL lidocaine and LMA anesthesia. INTERPRETATION FOR PROCEDURE: Ms. Duran is a very pleasant 68-year-old patient who has had multiple bilateral upper extremity failed fistulas in the past with Dr. Benito including radial cephalic and brachiocephalic fistulas, and required new access for dialysis. After reviewing her vein mapping, it was apparent that the patient has very small veins not suitable for maturation for access. We discussed instead the placement of a brachial axillary Artegraft instead. Risks benefits and alternatives were explained she is agreeable to proceed. Informed consent was obtained. REPORT OF OPERATION: The patient was brought to the operating room in stable condition. LMA anesthesia and antibiotics were administered without complication. Her right upper extremity and axilla were prepped and draped in a sterile fashion including Ioban. A timeout was performed. Local anesthesia was a dministered to the skin and subcutaneous tissue just proximal to the antecubital crease vertically over the brachial artery pulse. An incision was made over the brachial artery and carried down to the subcutaneous tissue with Bovie cautery. The brachial sheath was opened and the artery was encountered and skeletonized proximally and distally and Vesseloops were placed. Local anesthesia was administered to the skin and subcutaneous tissue in the axilla over the axillary artery pulse. Incision was made and carried down through the extensive axillary subcutaneous tissue with Bovie cautery. The axillary vein was identified and skeletonized proximally and distally within the incision. A vessel loop was placed distally. The Artegraft was prepared. The distal end was beveled to a 5 mm opening and the excess graft was closed with a 5-0 Prolene suture. This will be the arterial end of the graft. The graft was marked to ensure orientation remained intact. A tunneler was used to tunnel from the brachial artery to the axillary vein and the graft was then placed through the tunneler keeping orientation intact. The 5 mm graft opening was anastomosed to the brachial artery and an end-to-side fashion. The Vesseloops were secured on the brachial artery and a 5 mm arteriotomy was made. The graft was anastomosed with running 5-0 Prolene suture. Before the final sutures are placed we flushed the inflow an d the outflow of the graft. A clamp was placed on the graft and flow was restored to the hand. Following this, the graft was flushed with heparinized saline and cut in a long bevel for the venous anastomosis. The vessel loop was secured is fully on the vein and a bulldog clamp was placed proximally. Along venotomy was made in the graft was anastomosed to the vein in an end-to-side fashion with 5-0 Prolene suture. Before the final sutures are placed we had good inflow and outflow through the vein but we did not have good flow to the graft when reroute at least the clamp. We did not complete her venous anastomosis and returned to the arterial anastomosis. A small transverse incision was made in the bower of the graft near the arterial anastomosis and a 2 Paramjit balloon was passed proximally and distally in the brachial artery. A very small platelet aggregate was removed no significant clot was noted. We closed the graft with 5- 0 Prolene suture and had excellent flow through the brachial artery and through the graft. We then finished her anastomosis on the vein and restored flow. Following this we had an excellent signal over the graft in the upper arm and over the palmar arch. The hand was warm and pink. Both incisions were copiously irrigated with saline. The arterial incision was closed in 3 layers with 3-0 Vicryl suture and 4-0 Vicryl suture and the skin was closed with a running subc uticular Monocryl suture. Mastisol and Steri-Strips were used to dress the wound. The axillary incision was closed with 2 deep layers of 2-0 Vicryl suture, 2 more superficial layers with 3-0 Vicryl suture, the deep dermal layer was approximated with running 4-0 Vicryl suture. The skin was closed with a running subcuticular Monocryl suture. Mastisol and Steri-Strips were placed over the incision. Sterile dressings were applied. The patient was allowed to awaken and taken to recovery in stable condition. There were no complications. She tolerated the procedure well. ESTIMATED BLOOD LOSS: Approximately 50 mL. COMPLICATIONS: None. PLAN: We will see the patient back in a week to check her incisions and flow through the AV graft. We'll start her on Plavix to prevent thrombosis of the graft. She will have a prescription for pain as well. It's okay to shower every 24 hours and pat incisions dry. Try to leave the Steri-Strips intact for 7 days to help with healing. FAMILIA ALEMAN MD Jan 16, 2019 20:50
[2019-01-16] MEDS: PERCOCET 5MG/325MG TAB PO ONE (22:20)
[2019-01-16] MEDS: CLOPIDOGREL 75 MG TAB PO ONE (22:20)
[2019-01-16 22:25] VITALS: BP 146/67
== END 2019-01-16 22:30 | disposition home or self-care (01) ==
LOC: M SDC 14:09
PROVIDERS: ATTEND Surgery Vascular Surgery
DX: N18.6 End stage renal disease (principal); T82.898A Other specified complication of vascular prosthetic devices, implants and grafts, initial encounter; I13.11 Hypertensive heart and chronic kidney disease without heart failure, with stage 5 chronic kidney disease, or end stage renal disease; E10.22 Type 1 diabetes mellitus with diabetic chronic kidney disease; E10.40 Type 1 diabetes mellitus with diabetic neuropathy, unspecified; I25.119 Atherosclerotic heart disease of native coronary artery with unspecified angina pectoris; I25.2 Old myocardial infarction; I44.2 Atrioventricular block, complete; E78.00 Pure hypercholesterolemia, unspecified; R60.0 Localized edema; I42.9 Cardiomyopathy, unspecified; K57.30 Diverticulosis of large intestine without perforation or abscess without bleeding; K44.9 Diaphragmatic hernia without obstruction or gangrene; R19.7 Diarrhea, unspecified; M15.0 Primary generalized (osteo)arthritis; M50.20 Other cervical disc displacement, unspecified cervical region; M81.0 Age-related osteoporosis without current pathological fracture; R42 Dizziness and giddiness; J45.909 Unspecified asthma, uncomplicated; R06.83 Snoring; G47.33 Obstructive sleep apnea (adult) (pediatric); R94.31 Abnormal electrocardiogram [ECG] [EKG]; Z88.1 Allergy status to other antibiotic agents; Z88.5 Allergy status to narcotic agent; Z88.8 Allergy status to other drugs, medicaments and biological substances; Z91.040 Latex allergy status; Z79.899 Other long term (current) drug therapy; Z79.82 Long term (current) use of aspirin; Z79.4 Long term (current) use of insulin; Z96.1 Presence of intraocular lens; Z98.41 Cataract extraction status, right eye; Z98.42 Cataract extraction status, left eye; Z78.0 Asymptomatic menopausal state; X58.XXXA Exposure to other specified factors, initial encounter; Y93.9 Activity, unspecified; Y92.9 Unspecified place or not applicable; Y99.9 Unspecified external cause status; Z99.2 Dependence on renal dialysis

== ENCOUNTER 2019-01-19 12:08 | Inpatient (IN) | payer MEDICARE ==
[~2019-01-19] VITALS: Ht 142.2 cm; Wt 89.5 kg
[~2019-01-19 12:08] MED LIST changes: +OXYC1TAB23 PO; +PLAV1TAB2 PO; -VANCOMYCIN HCL 500 MG in D5W MINI-BAG PLUS 100 ML IV SCH
[2019-01-19 13:00] VITALS: BP 114/52
--- NOTE | 2019-01-19 13:49 | CR.PDOC ---
General Date of Consultation: Jan 19, [address] Aleman HPI: Ms. Duran is a 68-year-old patient who had a left upper extremity AV access that failed, and then Dr. Benito had placed a new right upper extremity brachiocephalic AV fistula. Subsequently the fistula was very small and attempts to salvage were unsuccessful related to finding it thrombosed. No additional procedures were attempted on the left upper extremity because she was still healing from a gross extravasation after fistulogram and angioplasty with Dr. Benito in the past. The patient is status post right upper extremity brachial axillary graft 01/16/[address] Aleman. The patient is still using her PermCath for dialysis. This morning the patient was seen on an urgent basis as she called the office stating she has been having intense right arm pain which kept her up all last evening. She used Percocet to try to relieve the pain however it only helped slightly. She also reports numbness and tingling in her right hand which is worse if her hand is down, she keeps it across her abdomen to try to minimize the discomfort. Her right hand has been purplish in color. Her fingers feel colder than her left. Sometimes the pain has been so intense she feels weak in the hand. She states it has been getting worse since she went home on January 16. She states her arm just does not "feel right". She states the pain kept her up all of last evening. She had pain all throughout yesterday and is afraid is going to get worse over the weekend. Currently she remains on dialysis every Tuesday, she is due for dialysis today. The pt denies TIA, amaurosis fugax, nausea, vomiting, fever, chills, SOB, chest pain, abdominal pain, back pain. PMHx: IDDM Hypertension Dyslipidemia Glaucoma CAD GERD COPD Obesity. BMI 41.8 PSHX: Cataract extraction Right foot fracture Carpal tunnel release Tonsillectomy Appendectomy Left upper extremity and right upper extremity AV fistula and fistula revisions. Multiple fistulograms. SOCHX: Tobacco use: Nonsmoker ETOH: Denies FAMHX: History of diabetes, CAD, hypertension ROS: As noted in HPI, otherwise 11pt ROS of systems reviewed and unremarkable. PE: GEN: 68 yo F, appears stated age. Well-nourished, well developed. No acute distress. Alert and oriented x 3. Pleasant, interactive. HEENT: Normocephalic, atraumatic. Moist mucous membranes. CHEST: Regular rate and rhythm, +S1, +S2 LUNGS: Clear to auscultation bilaterally. No wheezes, rales, or rhonchi. ABD: Round, soft, non-tender, non-distended. EXT: The patient is noted to have surgical sites right upper extremity status post recent right upper extremity AV graft placement, the patient is noted to have some ecchymosis surrounding the surgical sites however there is no active bleeding or drainage. The patient is noted to have a general purplish discoloration to the fingers of her right hand. This is in contrast to pinkish appearance of the left hand. Fingers of the right hand are cooler to touch than the left. She is holding her arm across her abdomen to decrease her discomfort. The patient is noted to have sluggish capillary refill of the fingers of her right hand. Radial and ulnar pulses are nonpalpable. I am able to get a monophasic radial pulse with Doppler, ulnar pulse is monophasic with Doppler and difficult to obtain Doppler pulse over the palmar arch. With placing some pressure over the patient's AV graft radial pulse improves with strong Doppler signal. Ulnar pulse is slightly improved but still monophasic and I am able to Doppler signal over the palmar arch. The patient also reports the numb tingly sensation improves with applying pressure over the graft NEURO: Alert and oriented x 3. Cranial nerves III-XII are intact. Patient ambulates with the assistance of a walker. A&P: The patient is status post right upper extremity brachial axillary graft 01/16/[address] Aleman. The patient is reporting symptoms consistent with steal syndrome of the right upper extremity status post recent AV graft placement in the right upper extremity. The patient is reviewed with Dr. Aleman. The plan is to arrange direct admission from our office with hospitalist service. Spoke with Dr. Murphy to assist in facilitating this. I have relayed to Dr. Marcial that the patient is due for dialysis today. Continue with hemodialysis as per nephrology. The patient is currently using PermCath for dialysis access. Plan is for possible AV graft revision/banding versus ligation. The procedure, indication, risks, and benefits are reviewed with the patient. The patient verbalizes understanding and agreement. Informed consent is obtained and placed with the chart. Nothing by mouth after midnight tonight. The patient's medication list from the office is reviewed. The patient is currently on aspirin 81 mg daily. Vital Signs/I&O Vital Signs Date Time Temp Pulse Resp B/P (MAP) Pulse Ox O2 Delivery O2 Flow Rate FiO2 01/19/19 13:00 97.6 52 17 114/52 (72) 98 Laboratory Data Labs 24H Admission labs pending. Allergies Coded Allergies: cephalexin (Verified Allergy, Severe, RASH, DYSPNEA, 01/01/19) gatifloxacin (Verified Allergy, Severe, RASH, DYSPNEA, 01/01/19) tramadol (Verified Allergy, Severe, RASH, DYSPNEA, 01/01/19) nitrofurantoin (Verified Allergy, Mild, RASH, 01/01/19) latex (Verified Allergy, Unknown, RED, SWOLLEN, RASH, 01/01/19) sulfamethoxazole (Verified Adverse Reaction, Intermediate, EFFECTS KIDNEY FUNCTION, 01/01/19) trimethoprim (Verified Adverse Reaction, Intermediate, EFFECTS KIDNEY FUNCTION, 01/01/19) Home Medications Scheduled Aspirin (Aspirin EC) 81 Mg Tab, 81 MG PO DAILY, (Reported) Atorvastatin Calcium (Atorvastatin Calcium) 40 Mg Tab, 40 MG PO DAILY, (Reported) Azelastine HCl (Azelastine HCl) 0.15 % Spr, 1 SPRAY NA BID, (Reported) Budesonide/Formoterol (Symbicort 160-4.5 Mcg Inhaler) 6 Gm Hfa.aer.ad, 2 PUFF INH BID, (Reported) Calcitriol (Calcitriol) 0.25 Mcg Cap, 0.25 MCG PO DAILY, (Reported) Cholecalciferol (Vitamin D3) (Vitamin D3) 1,000 Unit Capsule, 1,000 UNIT PO DAILY, (Reported) Clopidogrel Bisulfate (Plavix) 75 Mg Tablet, 75 MG PO DAILY for 30 Days, #30 Dulaglutide (Trulicity) 1.5 Mg/0.5 Ml Pen.injctr, 1.5 MG SC 1XWK, (Reported) FRIDAYS Ferrous Sulfate (Iron) 325 Mg Tablet, 325 MG PO DAILY, (Reported) Insulin Degludec (Tresiba Flextouch U-200) 200 Unit/1 Ml Insuln.pen, 80 UNITS SQ DAILY, (Reported) Insulin Lispro (Humalog) 100 Unit/1 Ml Cartridge, 15-20 UNITS SC AC, (Reported) Levothyroxine Sodium (Levothyroxine Sodium) 112 Mcg Tab, 112 MCG PO DAILY, (Reported) Metoprolol Tartrate (Metoprolol Tartrate) 50 Mg Tablet, 50 MG PO BID, (Reported) Omeprazole (Omeprazole) 20 Mg Tab, 20 MG PO DAILY, (Reported) Torsemide (Torsemide) 20 Mg Tablet, 40 MG PO 4TIMES WEEKLY, (Reported) Scheduled PRN Albuterol Sulfate (Ventolin Hfa) 108 Mcg/Act Aer, 2 PUFFS INH QID PRN for SHORTNESS OF BREATH, (Reported) Dextrose (Glucose) 4 Gm Chw, 4 GM PO ASDIRECTED PRN for BLOOD SUGAR < 50, (Reported) Loperamide HCl (Imodium A-D) 2 Mg Tablet, 2 MG PO DAILY PRN for DIARRHEA, (Reported) Nitroglycerin (Nitrostat) 0.4 Mg Subl, 0.4 MG SL NITRO PRN for CHEST PAIN, (Reported) Oxycodone HCl/Acetaminophen (Oxycodone-Acetaminophen 5-325) 1 Each Tablet, 1 TAB PO QIDP PRN for pain for 5 Days, #20 Bisi Pastor Jan 19, 2019 13:49
[2019-01-19] MEDS ORDERED: VITA100066 PO (14:14)
[2019-01-19] MEDS ORDERED: CLOP75TA2 PO (14:14)
[2019-01-19] MEDS ORDERED: OXYC1TAB23 PO (14:14)
[2019-01-19 14:47] LABS: HEMATOCRIT 32.5 % (36.0-47.0); HEMOGLOBIN 10.5 g/dl (12.0-15.5); MEAN CORPUSCULAR HEMOGLOBIN 32.5 pg (27.0-33.0); MEAN CORPUSCULAR HGB CONC 32.3 g/dl (32.0-36.5); MEAN CORPUSCULAR VOLUME 100.6 fl (80.0-96.0); PLATELET COUNT, AUTOMATED 282 10^3/uL (150-450); RED BLOOD COUNT 3.23 10^6/uL (4.00-5.40); WHITE BLOOD COUNT 14.5 10^3/uL (4.0-10.0)
[2019-01-19 14:58] LABS: INR 1.09; PROTHROMBIN TIME 13.8 SECONDS (11.8-14.0)
[2019-01-19 15:04] LABS: ALBUMIN 2.8 GM/DL (3.2-5.2); BILIRUBIN,TOTAL 0.3 MG/DL (0.2-1.0); CALCIUM LEVEL 8.4 MG/DL (8.8-10.2); CREATININE FOR GFR 4.77 MG/DL (0.55-1.30); GLOMERULAR FILTRATION RATE 9.6 (>45); TOTAL PROTEIN 6.4 GM/DL (6.4-8.2)
[2019-01-19 15:23] LABS: PHOSPHORUS LEVEL 4.8 MG/DL (2.5-4.9)
[2019-01-19] MEDS ORDERED: GLUCOSE 4 GM CHEW TABLET PO PRN ×2 (16:15→16:30)
[2019-01-19] MEDS ORDERED: NITROGLYCERIN 0.4 MG SUBL TABLET SL PRN (16:15)
[2019-01-19] MEDS ORDERED: LOPERAMIDE 2 MG CAPLET PO PRN (16:15)
[2019-01-19] MEDS ORDERED: PERCOCET 5MG/325MG TAB PO PRN (16:15)
[2019-01-19] MEDS ORDERED: GLUCAGON FOR INJ 1 MG VIAL (J1610) SC PRN (16:30)
[2019-01-19] MEDS ORDERED: DEXTROSE 50% 50 ML SYRINGE IV PRN (16:30)
[2019-01-19] MEDS ORDERED: HumaLOG INSULIN (NovoLOG) PER UNIT SC SCH (17:30)
[2019-01-19] MEDS: HumaLOG INSULIN (NovoLOG) PER UNIT SC SCH ×2 (18:45→21:00)
--- NOTE | 2019-01-19 19:06 | HPEPDOC ---
General Date of Admission Jan 19, 2019 at 12:48 Date of Service: Jan 19, 2019 Other Providers [id number] Attending Physician: AIMEE OSCAR MD Chief Complaint The patient is a 68-year-old female admitted with a reason for visit of A/V Fistula. Source: Patient Exam Limitations: No limitations Timing/Duration: Day(s) Severity: Moderate History of Present Illness 68 yo woman with ESRD on HD (MWF), hypertension, dyslipidemia, diabetes, chronic diastolic congestive heart failure, CAD s/p PCI who was seen in the vascular clinic this morning as an urgent visit for intense right arm pain that did not allow her to sleep last night despite taking her Percocet to try to relieve the pain, with associated numbness and tingling which was worse when she allowed it drop to gravity. She also noticed that it was more purplish than her left and felt cooler. Of note, Ms. Duran has a complicated RUE dialysis access history, including a right upper extremity brachiocephalic AV fistula that was subsequently established to be very small and attempts to salvage it were unsuccessful after it thrombosed. She then most recently had a right upper extremity brachial axillary graft on 01/16/[address] Aleman and now presented to the clinic today with the complaint detailed above and was found to have steal syndrome 2/2 to the graft and was sent for direct admission to the hospital in preparation for a revision tomorrow by Dr. Aleman. Of note, she was also due for HD today, that she had after arrival to the floor via a permcath. On arrival to the floor from clinic, her vitals were BP 114/52, HR 52, RR 17, temp 97.6 while saturating 98% on room air. She was comfortable and having her lunch before heading over to dialysis and reported her pain as mild at this time. Initial labs showed WBC 14.5, H/H 10.5/32.5, platelets 282, K 5, BUN 65, Cr 4.77, glucose 153 and unremarkable LFTs. Home Medications Scheduled Aspirin (Aspirin EC) 81 Mg Tab, 81 MG PO DAILY, (Reported) Atorvastatin Calcium (Atorvastatin Calcium) 40 Mg Tab, 40 MG PO DAILY, (Reported) Azelastine HCl (Azelastine HCl) 0.15 % Spr, 1 SPRAY NARES DAILY, (Reported) Budesonide/Formoterol (Symbicort 160-4.5 Mcg Inhaler) 6 Gm Hfa.aer.ad, 2 PUFF INH BID, (Reported) Calcitriol (Calcitriol) 0.25 Mcg Cap, 0.25 MCG PO 3XW, (Reported) RECEIVES AT DIALYIS MON/WED/TUE Cholecalciferol (Vitamin D3) (Vitamin D3) 1,000 Unit Tablet, 1,000 UNIT PO DAILY, (Reported) Clopidogrel Bisulfate (Clopidogrel) 75 Mg Tablet, 75 MG PO DAILY, (Reported) Dulaglutide (Trulicity) 1.5 Mg/0.5 Ml Pen.injctr, 1.5 MG SC QWEEK, (Reported) FRIDAYS Ferrous Sulfate (Iron) 325 Mg Tablet, 325 MG PO DAILY, (Reported) Insulin Degludec (Tresiba Flextouch U-200) 200 Unit/1 Ml Insuln.pen, 40 UNITS SC DAILY, (Reported) Insulin Lispro (Humalog) 100 Unit/1 Ml Cartridge, 15-20 UNITS SC AC, (Reported) Levothyroxine Sodium (Levothyroxine Sodium) 112 Mcg Tab, 112 MCG PO DAILY, (Reported) Metoprolol Tartrate (Metoprolol Tartrate) 50 Mg Tablet, 50 MG PO BID, (Reported) Omeprazole (Omeprazole) 20 Mg Tab, 20 MG PO DAILY, (Reported) Torsemide (Torsemide) 20 Mg Tablet, 40 MG PO 4XWK, (Reported) TAKES ON NON-DIALYSIS DAYS TUE//TUE/TUE Scheduled PRN Albuterol Sulfate (Ventolin Hfa) 108 Mcg/Act Aer, 2 PUFFS INH QID PRN for SHORTNESS OF BREATH, (Reported) Dextrose (Glucose) 4 Gm Chw, 4 GM PO ASDIRECTED PRN for BLOOD SUGAR < 50, (Reported) Loperamide HCl (Imodium A-D) 2 Mg Tablet, 2 MG PO DAILY PRN for DIARRHEA, (Reported) Nitroglycerin (Nitrostat) 0.4 Mg Subl, 0.4 MG SL Q5MP PRN for CHEST PAIN, (Reported) Oxycodone HCl/Acetaminophen (Oxycodone-Acetaminophen 5-325) 1 Each Tablet, 1 TAB PO QID PRN for PAIN, (Reported) Allergies Coded Allergies: cephalexin (Verified Allergy, Severe, RASH, DYSPNEA, 01/01/19) gatifloxacin (Verified Allergy, Severe, RASH, DYSPNEA, 01/01/19) tramadol (Verified Allergy, Severe, RASH, DYSPNEA, 01/01/19) nitrofurantoin (Verified Allergy, Mild, RASH, 01/01/19) chlorhexidine (Verified Allergy, Unknown, RASH, 01/19/19) latex (Verified Allergy, Unknown, RED, SWOLLEN, RASH, 01/01/19) sulfamethoxazole (Verified Adverse Reaction, Intermediate, EFFECTS KIDNEY FUNCTION, 01/01/19) trimethoprim (Verified Adverse Reaction, Intermediate, EFFECTS KIDNEY FUNCTION, 01/01/19) Past Medical History Medical History hypertension, dyslipidemia, diabetes, asthma, chronic diastolic congestive heart failure, coronary artery disease status post stenting in 2013, and end-stage renal disease on hemodialysis (M, W, F), hypothryoid, cholelithiasis, glaucoma, GERD, COPD, morbid obesity Surgical History Appendectomy, Bilateral cataract surgery, Carpal tunnel surgery bilaterally, left elbow fracture, abd laparotomy, right foot fracture, tonsillectomy, C- section, Left upper extremity and right upper extremity AV fistula and fistula revisions. Multiple fistulograms. Family History History of diabetes, CAD, hypertension Social History * Smoker: Denies Alcohol: Denies Drugs: denies Recent Travel/Sick Contacts: Denies: Recent travel, Recent sick contacts Psychosocial History: No pertinent psych hx A-FIB/CHADSVASC A-FIB History Current/History of A-Fib/PAF?: No Current PO Anticoag Therapy: No Age/Risk Factor Scoring CHADSVASC: CHADSVASC Response (Comments) Value Age Risk Factor Age 65-74 years old 1 Gender Risk Factor Female 1 Hx of HTN Yes 1 Hx of Stroke/TIA/or VTE No 0 Hx of Diabetes Yes 1 Hx of Vascular Disease Yes 1 Total 5 Treatment Treatment ordered: NONE Reason Anticoagulant not given: Not indicated/[id number] Physical Examination Extremity Exam: Positive: Other (cool hands, purplish in color, RUE brachial graft, LUE is WWP, no extremity edema) Vital Signs Vital Signs Date Time Temp Pulse Resp B/P (MAP) Pulse Ox O2 Delivery O2 Flow Rate FiO2 01/19/19 13:00 97.6 52 17 114/52 (72) 98 Laboratory Data Labs 24H Laboratory Tests 2 12/13/19 14:23: Nucleated Red Blood Cells % (auto) 0.0, Prothrombin Time 13.8, Prothromb Time International Ratio 1.09, Anion Gap 11, Glomerular Filtration Rate 9.6L, Calcium Level 8.4L, Phosphorus Level 4.8, Total Bilirubin 0.3, Aspartate Amino Transf (AST/SGOT) 23, Alanine Aminotransferase (ALT/SGPT) 33, Alkaline Phosphatase 124H, Total Protein 6.4, Albumin 2.8L, Albumin/Globulin Ratio 0.78L CBC/BMP Laboratory Tests 01/19/19 14:23 Assessment/Plan Assessment: 68 yo woman with ESRD on HD (MWF), hypertension, dyslipidemia, diabetes, chronic diastolic congestive heart failure, CAD s/p PCI who was seen in the vascular clinic this morning as an urgent visit for intense right arm pain and was found to have steal syndrome 2/2 a right upper extremity brachial axillary graft that was placed on 01/16/19 and was sent for direct admission to the hospital in preparation for a revision tomorrow by Dr. Aleman. Of note, she was also due for HD today, that she had after arrival to the floor via a permcath. Plan: RUE steal syndrome with associated pain: -continue home percocet, appears sufficient for the pain -NPO at midnight for revision tomorrow with Dr. Aleman, vascular surgery c onsult is placed and team is planning and driving the plan ESRD with CKD V -dialysis M,W,F, had dialysis shortly after arrival today -nephrology consult placed -has permcath access for HD -NPO after midnight for OR tomorrow AM Diabetes -Levemir for home script -SSI -FSBG AC/HS -hypoglycemia protocol -consistent carb diet, 2g sodium DIXON -CPAP per home settings CAD: -continue cardioprotective meds, including ASA and plavix COPD: -continue symbicort -Duonebs Q6H PRN Hyperlipidemia: -continue home lipitor Fe deficiency anemia: -continue Fe supplementation diastolic CHF: well compensated -continue torsemide per home script -Has HD per home schedule -2g sodium Hypothyroidism: -continue home synthroid DVT ppx: will wait on heparin SC pending OR tomorrow AM. SCDs Diet: 2g sodium, consistent carb, NPO after midnight for OR tomorrow CODE: FULL Plan / VTE VTE Prophylaxis Ordered?: Yes AIMEE OSCAR MD Jan 19, 2019 19:06
[2019-01-19] MEDS: SYMBICORT 160/4.5MCG INHALER 6GM INH SCH (20:00)
[2019-01-19] MEDS ORDERED: HEPARIN SOD (PORCINE) 5000 UNITS/ML VIAL SC SCH (21:00)
[2019-01-19] MEDS: METOPROLOL TART 50 MG TAB PO SCH (21:25)
[2019-01-19 22:00] VITALS: BP 141/73
[2019-01-20] VITALS (10 sets, daily range): BP systolic 113–146; BP diastolic 54–60
[2019-01-20] MEDS: LEVOTHYROXINE 112MCG TABLET (0.112MG) PO SCH (05:29)
[2019-01-20 05:57] LABS: HEMATOCRIT 32.4 % (36.0-47.0); HEMOGLOBIN 10.6 g/dl (12.0-15.5); MEAN CORPUSCULAR HEMOGLOBIN 32.4 pg (27.0-33.0); MEAN CORPUSCULAR HGB CONC 32.7 g/dl (32.0-36.5); MEAN CORPUSCULAR VOLUME 99.1 fl (80.0-96.0); PLATELET COUNT, AUTOMATED 279 10^3/uL (150-450); RED BLOOD COUNT 3.27 10^6/uL (4.00-5.40); WHITE BLOOD COUNT 11.3 10^3/uL (4.0-10.0)
[2019-01-20 06:30] LABS: CALCIUM LEVEL 8.3 MG/DL (8.8-10.2); CREATININE FOR GFR 3.02 MG/DL (0.55-1.30); GLOMERULAR FILTRATION RATE 16.3 (>45); MAGNESIUM LEVEL 1.9 MG/DL (1.8-2.4); POTASSIUM SERUM 4.1 MEQ/L (3.5-5.1)
[2019-01-20] MEDS: HumaLOG INSULIN (NovoLOG) PER UNIT SC SCH ×4 (07:30→20:45)
--- NOTE | 2019-01-20 08:01 | IPNPDOC ---
Date Seen The patient was seen on 01/20/19. Progress Note Patient seen and examined. Right upper extremity hand perfusion is diminished status post placement of a right brachial axillary Artegraft 2 days ago. She has had multiple failed autologous access in the past with Dr. Benito, including Lisbeth fistula and brachiocephalic fistula. After multiple fistulas, there can be some diminishment of flow through the arterial system at baseline, and then we added additional limitation with a new graft placement. She had a good biphasic signal in the palmar arch in the operating room, but as flow through the graft increased over the past few days, the flow to her hand has diminished. With compression of the graft, we do have yazidi of flow to the hand, which indicates that she has not thrombosed distal to the graft. Her hand is cool pale but motor and sensory are intact. It is somewhat painful for her to move her hand with full range of motion. I discussed with the patient the risks benefits alternatives to a revision of her graft to narrow the arterial inflow and see if we can preserve flow into the graft while giving her additional blood flow to her hand. Unfortunately, this patient has very limited options for AV access, and we are hopeful we can salvage the graft, but if necessary we will ligate the graft to preserve flow to the hand. After an extensive conversation, the patient was agreeable to proceed and informed consent was obtained. Today, I went over the plan again with her this morning prior to surgery and she is again a greeable. We will give her 1 g of vancomycin for surgical prophylaxis, I did explain to her that a redo surgery with an artificial graft is higher risk for infection while healing, but we will do our best to try to make sure she feels a satisfactory manner. Depending on how the patient does today, she may be ready for discharge later today or tomorrow. VS, I&O, 24H, Fishbone Vital Signs/I&O Vital Signs Date Time Temp Pulse Resp B/P (MAP) Pulse Ox O2 Delivery O2 Flow Rate FiO2 01/20/19 06:00 98.3 67 16 128/60 (82) 97 Room Air l I&O- Last 24 Hours up to 6 AM 01/20/19 06:00 Intake Total 240 ml Output Total 2600 ml Balance -2360 ml Laboratory Data 24H LABS Laboratory Tests 2 01/19/19 14:23: Nucleated Red Blood Cells % (auto) 0.0, Prothrombin Time 13.8, Prothromb Time International Ratio 1.09, Anion Gap 11, Glomerular Filtration Rate 9.6L, Calcium Level 8.4L, Phosphorus Level 4.8, Total Bilirubin 0.3, Aspartate Amino Transf (AST/SGOT) 23, Alanine Aminotransferase (ALT/SGPT) 33, Alkaline Phosphatase 124H, Total Protein 6.4, Albumin 2.8L, Albumin/Globulin Ratio 0.78L 01/19/19 18:57: Bedside Glucose (Misc Panel) 98 01/19/19 21:12: Bedside Glucose (Misc Panel) 194H 01/20/19 05:09: Nucleated Red Blood Cells % (auto) 0.0, Anion Gap 9, Glomerular Filtration Rate 16.3L, Calcium Level 8.3L, Magnesium Level 1.9 CBC/BMP Laboratory Tests 01/19/19 14:23 01/20/19 05:09 FAMILIA PACE MD Jan 20, 2019 08:01
[2019-01-20] MEDS ORDERED: VANCOMYCIN 1000 MG/20 ML VIAL (J3370) As Ordered ONE (08:19)
[2019-01-20] MEDS ORDERED: LIDOCAINE 1% SDV INJ 30 ML VIAL As Ordered ONE (08:19)
[2019-01-20] MEDS ORDERED: HEPARIN SOD (PORCINE) 5000 UNITS/ML VIAL As Ordered ONE (08:19)
[2019-01-20] MEDS ORDERED: ONDANSETRON 4MG/2ML VIAL (J2405) As Ordered ONE (08:37)
[2019-01-20] MEDS ORDERED: MIDAZOLAM INJ 2 MG/2 ML VIAL (J2250) As Ordered ONE (08:37)
[2019-01-20] MEDS ORDERED: DESFLURANE 240 ML INHALANT As Ordered ONE (08:37)
[2019-01-20] MEDS ORDERED: fentaNYL 100 MCG/2 ML INJECTION (J3010) As Ordered ONE (08:37)
[2019-01-20] MEDS ORDERED: METOCLOPRAMIDE INJ 10MG/2ML VIAL (J2765) As Ordered ONE (08:37)
[2019-01-20] MEDS ORDERED: SUGAMMADEX SODIUM 500 MG/5 ML VIAL (BRIDION) As Ordered ONE (08:37)
[2019-01-20] MEDS ORDERED: LIDOCAINE 2% INJ 100 MG/5 ML SDV (FOR ANES.) As Ordered ONE (08:37)
[2019-01-20] MEDS ORDERED: ROCURONIUM BROMIDE 50 MG/5 ML VIAL As Ordered ONE (08:37)
[2019-01-20] MEDS ORDERED: PROPOFOL 200 MG/20 ML VIAL As Ordered ONE (08:37)
[2019-01-20] MEDS ORDERED: LEVEMIR (INSULIN DETEMIR) 1 UNITS/0.01ML SC SCH (09:00)
[2019-01-20] MEDS: AZELASTINE 137MCG NASAL SPY 30 ML (ASTELIN) SCH (09:00)
[2019-01-20] MEDS ORDERED: LEVEMIR (INSULIN DETEMIR) 1 UNITS/0.01ML SC ONE (09:00)
[2019-01-20] MEDS ORDERED: ACETAMINOPHEN 1000MG 100ML IV BTL (OFIRMEV) (J0131 PER 10MG) As Ordered ONE (09:17)
--- NOTE | 2019-01-20 10:12 | ROOPDOC ---
[facility] Report Of Operation Report of Operation DATE OF PROCEDURE: 01/20/19 PREPROCEDURE DIAGNOSES: End-stage renal disease with steal syndrome right upper extremity status post brachial axillary graft placement. POSTPROCEDURE DIAGNOSES: Same. PROCEDURE: 1. Banding right brachial axillary graft SURGEON: Familia Aleman MD ANESTHESIA: Gen. anesthesia and local. INDICATION FOR PROCEDURE: Ms. Duran is a very pleasant 68-year-old patient who has had multiple failed autologous access in the right upper extremity in the past with Dr. Benito, no option for new access in the left upper extremity, and underwent a right brachial axillary Artegraft placement 2 days ago. Initially, the patient had good perfusion to her hand in the operating room postprocedure, but as graft flow increased, she developed worsening ischemic symptoms to her right hand. Her sensation and motor were intact, but the fingertips were purple and cool and I could not palpate a radial pulse. With compression of the graft, perfusion to the hand dramatically improved indicating she did not have a distal thrombosis. Risks benefits and alternatives to a right AV graft banding versus ligation were explained to the patient and she was agreeable to proceed. Informed consent was obtained. REPORT OF OPERATION: The patient was brought to the operating room in stable condition and placed supine and the or table. Anesthesia was administered along with antibiotics without complication. Her right upper extremity was prepped and draped in sterile fashion. A timeout was performed. Her previous antecubital incision sutures were removed and saline was used to irrigate. The graft was compressed, and Doppler was used to listen at the palmar arch. We slowly released flow through the graft and established the amount of limitation of inflow needed to maintain perfusion to the hand. We then narrowed the graft with 5-0 Prolene suture near the AV anastomosis for 2 cm length and then extended the taper out to the edge of the graft. Following this, there was still excellent Doppler flow over the graft, but we now had a warm pink and with triphasic flow at the palmar arch as well. We irrigated with copious amounts of normal saline. The deep tissues were approximated with a running 3-0 Vicryl suture. The deep dermal layer was approximated with a running 3-0 Vicryl suture. The skin was closed with a running subcuticular Monocryl suture. Steri-Strips and Mastisol were used to dress the incision and a 2 x 2 gauze and Tegaderm were placed over the incision. The patient was allowed to awaken from anesthesia and was taken to recovery in stable condition. ESTIMATED BLOOD LOSS: Approximately 5 mL. COMPLICATIONS: None. PLAN: We will continue to use the PermCath for dialysis until the patient's ante cubital and axillary incisions have healed. Hopefully, when we see her in a week for follow-up, her incisions will be healed and we can start to use the graft for dialysis. If the patient is doing well later this afternoon, it is okay for discharge home today if she feels up to it; otherwise, we can discharge her in the morning. Resume preoperative diet. FAMILIA ALEMAN MD Jan 20, 2019 10:12
[2019-01-20] MEDS ORDERED: NS 1,000 ML IV SCH (10:15)
[2019-01-20] MEDS ORDERED: fentaNYL 100 MCG/2 ML INJECTION (J3010) IV PRN (10:15)
[2019-01-20] MEDS ORDERED: PERCOCET 5MG/325MG TAB PO PRN (10:15)
[2019-01-20] MEDS ORDERED: ONDANSETRON 4MG/2ML VIAL (J2405) IV PRN (10:15)
[2019-01-20] MEDS: METOPROLOL TART 50 MG TAB PO SCH ×2 (11:07→20:53)
[2019-01-20] MEDS: OMEPRAZOLE 20 MG CAP PO SCH (11:08)
[2019-01-20] MEDS: VITAMIN D 1,000 INTERNATIONAL UNITS TABLET PO SCH (11:08)
[2019-01-20] MEDS: FERROUS SULFATE 325MG TAB PO SCH (11:08)
[2019-01-20] MEDS: TORSEMIDE 20 MG TAB PO SCH (11:08)
[2019-01-20] MEDS: ATORVASTATIN 20 MG TAB PO SCH (11:08)
[2019-01-20] MEDS: ASPIRIN 81 MG ENTERIC TAB PO SCH (11:09)
[2019-01-20] MEDS: SYMBICORT 160/4.5MCG INHALER 6GM INH SCH ×2 (11:28→19:34)
--- NOTE | 2019-01-20 14:37 | IPNPDOC ---
Text Note Date of Service The patient was seen on 01/20/19. NOTE Subjective: -Doing well this morning -No issues, pending going to the OR this morning Objective: General: morbidly obese, comfortable, NAD HEENT: NCAT, PERRLA, EOMI, MMM Neck: supple, no JVD Pulm: CTAB, no crackles or wheezing, breathing comfortably on room air and speaking in full sentences Cardiac: 2/6 systolic murmur, RRR Abd: Normoactive bowel sounds, soft, NTND Ext: WWP, no LE edema, cool right hand, purplish in color, RUE brachial graft, LUE is WWP, no extremity edema, with scars of prior HD access. Neuro: AOx3, moving all extremities Psych: AOx3, normal affect Labs: WBC 11.6 Hgb 10.6 Hct 32.4 Platelets 279 Na 136 K 4.1 Cr 3.02 Mag 1.9 68 yo woman with ESRD on HD (MWF), hypertension, dyslipidemia, diabetes, chronic diastolic congestive heart failure, CAD s/p PCI who was seen in the vascular clinic this morning as an urgent visit for intense right arm pain and was found to have steal syndrome 2/2 a right upper extremity brachial axillary graft that was placed on 01/16/19 and was sent for direct admission to the hospital in preparation for a revision today by Dr. Aleman. Plan: RUE steal syndrome with associated pain: -continued home percocet overnight, will assess after the OR -has revision this morning with Dr. Aleman ESRD with CKD V -dialysis M,W,F, had dialysis shortly after arrival 01/19 -nephrology consult placed -has permcath access for HD Diabetes -Levemir per home script -SSI -FSBG AC/HS -hypoglycemia protocol -Diet per vascular team after OR, otherwise to get back to consistent carb diet, 2g sodium DIXON -CPAP per home settings CAD: -continue cardioprotective meds, including ASA and plavix COPD: -continue symbicort -Duonebs Q6H PRN Hyperlipidemia: -continue home lipitor Fe deficiency anemia: -continue Fe supplementation diastolic CHF: well compensated -continue torsemide per home script -Has HD per home schedule -2g sodium Hypothyroidism: -continue home synthroid DVT ppx: SCDs with OR today Diet: Per vascular after OR, to eventual 2g sodium, consistent carb CODE: FULL VS,Fishbone, I+O VS, Fishbone, I+O Laboratory Tests 01/19/19 14:23 01/20/19 05:09 Vital Signs Date Time Temp Pulse Resp B/P (MAP) Pulse Ox O2 Delivery O2 Flow Rate FiO2 01/20/19 06:00 98.3 67 16 128/60 (82) 97 Room Air I&O- Last 24 Hours up to 6 AM 01/20/19 06:00 Intake Total 240 ml Output Total 2600 ml Balance -2360 ml AIMEE OSCAR MD Jan 20, 2019 08:00
--- NOTE | 2019-01-20 16:09 | IPNPDOC ---
Date Seen The patient was seen on 01/20/19. Progress Note POSTOP CHECK: Patient seen and examined status post right upper extremity banding of her brach ial axillary AV graft. She is doing well and says her hand feels so much better. It is warm and pink with a palpable radial pulse. She has a triphasic signal over the palmar arch. She has a good signal over the AV graft. It is a little more difficult to actually feel the thrill in the graft after narrowing the inflow, but there is a strong Doppler signal. Were pleased that her hand perfusion is improved. It is okay from a vascular standpoint for her to go home tonight or tomorrow. VS, I&O, 24H, Fishbone Vital Signs/I&O Vital Signs Date Time Temp Pulse Resp B/P (MAP) Pulse Ox O2 Delivery O2 Flow Rate FiO2 01/20/19 16:01 97.0 66 18 113/55 (74) 97 Room Air 01/20/19 10:40 2 I&O- Last 24 Hours up to 6 AM0 01/20/19 06:00 Intake Total 240 ml Output Total 2600 ml Balance -2360 ml Laboratory Data 24H LABS Laboratory Tests 2 01/19/19 18:57: Bedside Glucose (Misc Panel) 98 01/19/19 21:12: Bedside Glucose (Misc Panel) 194H 01/20/19 05:09: Nucleated Red Blood Cells % (auto) 0.0, Anion Gap 9, Glomerular Filtration Rate 16.3L, Calcium Level 8.3L, Magnesium Level 1.9 01/20/19 10:00: Bedside Glucose (Misc Panel) 118H 01/20/19 11:25: Bedside Glucose (Misc Panel) 124H CBC/BMP Laboratory Tests 01/20/19 05:09 FAMILIA PACE MD Jan 20, 2019 16:09
[2019-01-21 02:00] VITALS: BP 119/54
[2019-01-21] MEDS: LEVOTHYROXINE 112MCG TABLET (0.112MG) PO SCH (05:37)
[2019-01-21 06:00] VITALS: BP 119/55
[2019-01-21 06:14] LABS: HEMATOCRIT 33.7 % (36.0-47.0); HEMOGLOBIN 10.7 g/dl (12.0-15.5); MEAN CORPUSCULAR HEMOGLOBIN 32.4 pg (27.0-33.0); MEAN CORPUSCULAR HGB CONC 31.8 g/dl (32.0-36.5); MEAN CORPUSCULAR VOLUME 102.1 fl (80.0-96.0); PLATELET COUNT, AUTOMATED 277 10^3/uL (150-450); WHITE BLOOD COUNT 11.2 10^3/uL (4.0-10.0)
[2019-01-21 06:35] LABS: CALCIUM LEVEL 7.9 MG/DL (8.8-10.2); CREATININE FOR GFR 4.54 MG/DL (0.55-1.30); GLOMERULAR FILTRATION RATE 10.2 (>45); POTASSIUM SERUM 4.4 MEQ/L (3.5-5.1)
[2019-01-21] MEDS: HumaLOG INSULIN (NovoLOG) PER UNIT SC SCH (07:30)
[2019-01-21] MEDS: SYMBICORT 160/4.5MCG INHALER 6GM INH SCH (07:52)
[2019-01-21] MEDS ORDERED: VANCOMYCIN HCL 1,000 MG, VIAL MATE ADAPTER 1 EACH in D5W 250 ML IV ONE (09:00)
[2019-01-21] MEDS ORDERED: LEVEMIR (INSULIN DETEMIR) 1 UNITS/0.01ML SC SCH (09:00)
[2019-01-21 09:20] VITALS: BP 130/52
[2019-01-21] MEDS: VITAMIN D 1,000 INTERNATIONAL UNITS TABLET PO SCH (09:20)
[2019-01-21] MEDS: OMEPRAZOLE 20 MG CAP PO SCH (09:20)
[2019-01-21] MEDS: ATORVASTATIN 20 MG TAB PO SCH (09:20)
[2019-01-21] MEDS: METOPROLOL TART 50 MG TAB PO SCH (09:20)
[2019-01-21] MEDS: TORSEMIDE 20 MG TAB PO SCH (09:20)
[2019-01-21] MEDS: FERROUS SULFATE 325MG TAB PO SCH (09:20)
[2019-01-21] MEDS: ASPIRIN 81 MG ENTERIC TAB PO SCH (09:20)
[2019-01-21] MEDS: AZELASTINE 137MCG NASAL SPY 30 ML (ASTELIN) SCH (09:21)
--- NOTE | 2019-01-21 09:35 | DS.PDOC ---
Discharge Summary General Date of Admission Jan 19, 2019 at 12:48 Date of Discharge 01/21/2019 Attending Physician: AIMEE OSCAR MD Specialist/Consultants Involve: FAMILIA ALEMAN MD Discharge Summary PROCEDURES PERFORMED DURING STAY: s/p right upper extremity banding of her brachial axillary AV graft on 01/20/2019 ADMITTING DIAGNOSES: 1. RUE steal syndrome 2/2 brachial axillary AV dialysis graft DISCHARGE DIAGNOSES: 1. RUE steal syndrome 2/2 brachial axillary AV dialysis graft COMPLICATIONS/CHIEF COMPLAINT: A/V Fistula. HISTORY OF PRESENT ILLNESS: 68 yo woman with ESRD on HD (MWF), hypertension, dyslipidemia, diabetes, chronic diastolic congestive heart failure, CAD s/p PCI who was seen in the vascular clinic on the morning of admission as an urgent visit for intense right arm pain that did not allow her to sleep the night befor e despite taking her Percocet to try to relieve the pain, with associated numbness and tingling which was worse when she allowed it drop to gravity. She also noticed that it was more purplish than her left and felt cooler. Of note, Ms. Duran has a complicated RUE dialysis access history, including a right upper extremity brachiocephalic AV fistula that was subsequently established to be very small and attempts to salvage it were unsuccessful after it thrombosed. She then most recently had a right upper extremity brachial axillary graft on 01/16/[address] Aleman and prior to this admission presented to the clinic today with the complaint detailed above and was found to have steal syndrome 2/2 to the graft and was sent for direct admission to the hospital in preparation for a revision on 01/20/[address] Aleman. Of note, she was also due for HD on the day of admission that she had after arrival to the floor via a permcath. HOSPITAL COURSE: On arrival to the floor from clinic, her vitals were BP 114/52, HR 52, RR 17, temp 97.6 while saturating 98% on room air. She was comfortable and having her lunch before heading over to dialysis and reported her pain as mild at this time. Initial labs showed WBC 14.5, H/H 10.5/32.5, platelets 282, K 5, BUN 65, Cr 4.77, glucose 153 and unremarkable LFTs. She had her right upper extremity banding of her brachial axillary AV graft and did well post procedure and was cleared by Dr. Aleman for discharge home. I am not discharging her home to follow up with vascular, nephrology and her PCP as an outpatient, without any changes to her medications. DISCHARGE MEDICATIONS: Please see below. ALLERGIES: Please see below. PHYSICAL EXAMINATION ON DISCHARGE: VITAL SIGNS: Please see below. General: morbidly obese, comfortable, NAD HEENT: NCAT, PERRLA, EOMI, MMM Neck: supple, no JVD Pulm: CTAB, no crackles or wheezing, breathing comfortably on room air and speaking in full sentences Cardiac: 2/6 systolic murmur, RRR Abd: Normoactive bowel sounds, soft, NTND Ext: WWP, no LE edema, bilateral US WWP with normal color, no extremity edema. Neuro: AOx3, moving all extremities Psych: AOx3, normal affect LABORATORY DATA: Please see below. IMAGING: None this admission PROGNOSIS: Good ACTIVITY: As tolerated DIET: Consistent carb, renal and 2g sodium DISCHARGE PLAN: Home with vascular, nephrology and PCP follow up DISPOSITION: Home DISCHARGE INSTRUCTIONS: 1. Home with vascular, nephrology and PCP follow up, and resume HD schedule per outpatient schedule ITEMS TO FOLLOWUP ON ON OUTPATIENT: 1. RUE recent right upper extremity banding of her brachial axillary AV graft, with vascular 2. HD for ESRD 3. PCP follow up DISCHARGE CONDITION: Stable TIME SPENT ON DISCHARGE: 45 minutes. Vital Signs/I&Os Vital Signs Date Time Temp Pulse Resp B/P (MAP) Pulse Ox O2 Delivery O2 Flow Rate FiO2 01/21/19 07:02 94 Room Air 01/21/19 06:00 97.9 60 14 119/55 (76) 01/20/19 10:40 2 I&O- Last 24 Hours up to 6 AM 01/21/19 06:00 Intake Total 1495 ml Output Total 1000 ml Balance 495 ml Laboratory Data Labs 24H Laboratory Tests 2 01/20/19 10:00: Bedside Glucose (Misc Panel) 118H 01/20/19 11:25: Bedside Glucose (Misc Panel) 124H 01/20/19 16:31: Bedside Glucose (Misc Panel) 150H 01/20/19 20:44: Bedside Glucose (Misc Panel) 173H 01/21/19 05:23: Nucleated Red Blood Cells % (auto) 0.0, Anion Gap 10, Glomerular Filtration Rate 10.2L, Calcium Level 7.9L, Magnesium Level 2.0 CBC/BMP Laboratory Tests 01/21/19 05:23 FSBS Laboratory Tests Test 01/20/19 10:00 01/20/19 11:25 01/20/19 16:31 01/20/19 20:44 Range/Units Bedside Glucose (Misc Panel) 118 124 150 173 80-115 MG/DL Discharge Medications Scheduled Aspirin (Aspirin EC) 81 Mg Tab, 81 MG PO DAILY, (Reported) Atorvastatin Calcium (Atorvastatin Calcium) 40 Mg Tab, 40 MG PO DAILY, (Reported) Azelastine HCl (Azelastine HCl) 0.15 % Spr, 1 SPRAY NARES DAILY, (Reported) Budesonide/Formoterol (Symbicort 160-4.5 Mcg Inhaler) 6 Gm Hfa.aer.ad, 2 PUFF INH BID, (Reported) Calcitriol (Calcitriol) 0.25 Mcg Cap, 0.25 MCG PO 3XW, (Reported) RECEIVES AT DIALYIS TUE/TUE/TUE Cholecalciferol (Vitamin D3) (Vitamin D3) 1,000 Unit Tablet, 1,000 UNIT PO DAILY, (Reported) Clopidogrel Bisulfate (Clopidogrel) 75 Mg Tablet, 75 MG PO DAILY, (Reported) Dulaglutide (Trulicity) 1.5 Mg/0.5 Ml Pen.injctr, 1.5 MG SC QWEEK, (Reported) FRIDAYS Ferrous Sulfate (Iron) 325 Mg Tablet, 325 MG PO DAILY, (Reported) Insulin Degludec (Tresiba Flextouch U-200) 200 Unit/1 Ml Insuln.pen, 40 UNITS SC DAILY, (Reported) Insulin Lispro (Humalog) 100 Unit/1 Ml Cartridge, 15-20 UNITS SC AC, (Reported) Levothyroxine Sodium (Levothyroxine Sodium) 112 Mcg Tab, 112 MCG PO DAILY, (Reported) Metoprolol Tartrate (Metoprolol Tartrate) 50 Mg Tablet, 50 MG PO BID, (Reported) Omeprazole (Omeprazole) 20 Mg Tab, 20 MG PO DAILY, (Reported) Torsemide (Torsemide) 20 Mg Tablet, 40 MG PO 4XWK, (Reported) TAKES ON NON-DIALYSIS DAYS TUE//SAT/SUN Scheduled PRN Albuterol Sulfate (Ventolin Hfa) 108 Mcg/Act Aer, 2 PUFFS INH QID PRN for SHORTNESS OF BREATH, (Reported) Dextrose (Glucose) 4 Gm Chw, 4 GM PO ASDIRECTED PRN for BLOOD SUGAR < 50, (Repor randi) Loperamide HCl (Imodium A-D) 2 Mg Tablet, 2 MG PO DAILY PRN for DIARRHEA, (Reported) Nitroglycerin (Nitrostat) 0.4 Mg Subl, 0.4 MG SL Q5MP PRN for CHEST PAIN, (Reported) Oxycodone HCl/Acetaminophen (Oxycodone-Acetaminophen 5-325) 1 Each Tablet, 1 TAB PO QID PRN for PAIN, (Reported) Allergies Coded Allergies: cephalexin (Verified Allergy, Severe, RASH, DYSPNEA, 01/01/19) gatifloxacin (Verified Allergy, Severe, RASH, DYSPNEA, 01/01/19) tramadol (Verified Allergy, Severe, RASH, DYSPNEA, 01/01/19) nitrofurantoin (Verified Allergy, Mild, RASH, 01/01/19) chlorhexidine (Verified Allergy, Unknown, RASH, 01/19/19) latex (Verified Allergy, Unknown, RED, SWOLLEN, RASH, 01/01/19) sulfamethoxazole (Verified Adverse Reaction, Intermediate, EFFECTS KIDNEY FUNCTION, 01/01/19) trimethoprim (Verified Adverse Reaction, Intermediate, EFFECTS KIDNEY FUNCTION, 01/01/19) AIMEE OSCAR MD Jan 21, 2019 08:21
== END 2019-01-21 11:14 | disposition home or self-care (01) | DRG 252 ==
LOC: M MSPAV 12:48
PROVIDERS: ADMIT Internal Medicine; ATTEND Internal Medicine
PROC: 5A1D70Z Performance of Urinary Filtration, Intermittent, Less than 6 Hours Per Day (ICD-10-PCS; principal; 2019-01-19)
PROC: 03L70ZZ Occlusion of Right Brachial Artery, Open Approach (ICD-10-PCS; 2019-01-20)
DX: T82.898A Other specified complication of vascular prosthetic devices, implants and grafts, initial encounter (principal); N18.6 End stage renal disease; I50.32 Chronic diastolic (congestive) heart failure; I13.2 Hypertensive heart and chronic kidney disease with heart failure and with stage 5 chronic kidney disease, or end stage renal disease; E78.5 Hyperlipidemia, unspecified; E11.9 Type 2 diabetes mellitus without complications; I25.10 Atherosclerotic heart disease of native coronary artery without angina pectoris; E66.01 Morbid (severe) obesity due to excess calories; Z79.82 Long term (current) use of aspirin; Z79.899 Other long term (current) drug therapy; Z88.8 Allergy status to other drugs, medicaments and biological substances; Z88.2 Allergy status to sulfonamides; G47.33 Obstructive sleep apnea (adult) (pediatric); J44.9 Chronic obstructive pulmonary disease, unspecified; D50.9 Iron deficiency anemia, unspecified; E03.9 Hypothyroidism, unspecified; Y83.2 Surgical operation with anastomosis, bypass or graft as the cause of abnormal reaction of the patient, or of later complication, without mention of misadventure at the time of the procedure

== ENCOUNTER 2019-02-23 16:41 | Emergency (ER) | payer MEDICARE ==
[~2019-02-23] VITALS: Ht 142.2 cm; Wt 91.2 kg
[~2019-02-23 16:41] MED LIST changes: +CLOP75TA2 PO; +ONDA-83 PO; -ONDA4TAB5 PO; +VITA100066 PO
[2019-02-23] MEDS ORDERED: HUMA75IN2 SC (17:07)
[2019-02-23] MEDS ORDERED: GI COCKTAIL 50ML BTL(HYOSCYAMINE/MAALOX/LIDOCAINE VISCOUS)(1:3:1) PO ONE (17:45)
[2019-02-23] MEDS ORDERED: ONDANSETRON 4MG/2ML VIAL (J2405) IV ONE (17:45)
[2019-02-23] MEDS ORDERED: ACETAMINOPHEN 325 MG TAB PO ONE (18:15)
[2019-02-23 18:17] LABS: BASO # 0.1 10^3/uL (0.0-0.2); BASO % 0.5 % (0.0-1.0); EOS # 0.2 10^3/uL (0.0-0.5); EOS % 1.4 % (0.0-3.0); LYMPH # 1.5 10^3/uL (1.5-5.0); LYMPH % 11.2 % (24.0-44.0); MEAN CORPUSCULAR HEMOGLOBIN 32.3 pg (27.0-33.0); MEAN CORPUSCULAR HGB CONC 32.4 g/dl (32.0-36.5); MEAN CORPUSCULAR VOLUME 99.5 fl (80.0-96.0); MONO # 0.8 10^3/uL (0.0-0.8); MONO % 5.9 % (0.0-5.0); NEUTROPHILS # 10.8 10^3/uL (1.5-8.5); NEUTROPHILS % 80.7 % (36.0-66.0); PLATELET COUNT, AUTOMATED 331 10^3/uL (150-450); RED BLOOD COUNT 3.72 10^6/uL (4.00-5.40); WHITE BLOOD COUNT 13.4 10^3/uL (4.0-10.0)
[2019-02-23 18:46] LABS: ALBUMIN 3.1 GM/DL (3.2-5.2); ALT/SGPT 25 U/L (12-78); BILIRUBIN,DIRECT < 0.1 MG/DL (0.0-0.2); BILIRUBIN,TOTAL 0.3 MG/DL (0.2-1.0); LIPASE 266 U/L (73-393); TOTAL PROTEIN 6.8 GM/DL (6.4-8.2)
--- NOTE | 2019-02-23 19:18 | REPVR ---
PROCEDURE INFORMATION: Exam: CT Abdomen And Pelvis Without Contrast Exam date and time: 02/23/2019 6:11 PM Age: 68 years old Clinical indication: Abdominal pain; Additional info: Llq abdominal pain, HX diverticulitis TECHNIQUE: Imaging protocol: Computed tomography of the abdomen and pelvis without contrast. Radiation optimization: All CT scans at this facility use at least one of these dose optimization techniques: automated exposure control; mA and/or kV adjustment per patient size (includes targeted exams where dose is matched to clinical indication); or iterative reconstruction. COMPARISON: CT ABD PELVIS W/O CONTRAST 2015-10-03 05:57 FINDINGS: Lungs: Dependent subsegmental pulmonary atelectasis. Left lower lobe from atelectasis. Pleural space: Trace left-sided pleural effusion. Left lower lung pleural thickening. Liver: Normal. No mass. Gallbladder and bile ducts: Normal. No calcified stones. No ductal dilation. Pancreas: Normal. No ductal dilation. Spleen: Normal. No splenomegaly. Adrenals: Normal. No mass. Kidneys and ureters: Renal lobulation. Stomach and bowel: Moderate diverticulosis coli without acute inflammation. Gastric wall thickening. Appendix: No evidence of appendicitis. Intraperitoneal space: Unremarkable. No free air. No significant fluid collection. Vasculature: Unremarkable. No abdominal aortic aneurysm. Lymph nodes: Unremarkable. No enlarged lymph nodes. Bladder: Unremarkable as visualized. Reproductive: Unremarkable as visualized. Bones/joints: Moderate lumbar spondylosis. Soft tissues: Unremarkable. IMPRESSION: 1. Moderate diverticulosis coli without acute inflammation. 2. Gastric wall thickening. Electronically signed by: Billy Rojas On 02/23/2019 19:18:30 PM
[2019-02-23] MEDS ORDERED: AUGM500T34 PO (19:57)
[2019-02-23] MEDS ORDERED: AUGMENTIN 500 MG TAB PO ONE (20:00)
[2019-02-23 20:12] VITALS: BP 128/58
== END 2019-02-23 20:54 | disposition home or self-care (01) ==
LOC: M ED 16:41
DX: N39.0 Urinary tract infection, site not specified (principal); K57.30 Diverticulosis of large intestine without perforation or abscess without bleeding; K31.89 Other diseases of stomach and duodenum; R42 Dizziness and giddiness; E11.9 Type 2 diabetes mellitus without complications; N18.6 End stage renal disease; I11.9 Hypertensive heart disease without heart failure; Z88.1 Allergy status to other antibiotic agents; Z88.2 Allergy status to sulfonamides; Z88.5 Allergy status to narcotic agent; Z91.040 Latex allergy status
CPT/HCPCS: 74176; 80047; 80076; 81001; 83605; 83690; 85025; 87088; 87186; 93041; 96374; 99284; J2405

== ENCOUNTER 2019-04-18 17:17 | Emergency (ER) | payer MEDICARE ==
[~2019-04-18] VITALS: Ht 142.2 cm; Wt 86.8 kg
[~2019-04-18 17:17] MED LIST changes: +AUGM500T34 PO
[2019-04-18] MEDS ORDERED: HUMA100I5 (17:42)
[2019-04-18] MEDS ORDERED: LANTINJ4 (17:42)
--- NOTE | 2019-04-18 18:07 | REP ---
Portable chest, 05:45 p.m., single AP view with the patient semi upright: Comparison is the PA and lateral chest dated 08/08/2018. As chronic effacement of the left costophrenic angle, likely pleural adhesion, unchanged. The lung aquino otherwise clear. The There is a left IJ dual lumen central venous catheter with the tip seen in the right atrium in satisfactory location. There is no pneumothorax. There is chronic deformity of the left humeral head, unchanged. Impression: There has been interval placement of a left IJ dual lumen central venous catheter. Otherwise, there are chronic changes as described. Electronically Signed by Ronny Muñoz MD 04/18/2019 05:59 P
[2019-04-18 18:29] LABS: BASO # 0.1 10^3/uL (0.0-0.2); BASO % 0.5 % (0.0-1.0); EOS # 0.2 10^3/uL (0.0-0.5); EOS % 1.8 % (0.0-3.0); HEMATOCRIT 37.7 % (36.0-47.0); HEMOGLOBIN 12.3 g/dl (12.0-15.5); LYMPH # 1.6 10^3/uL (1.5-5.0); LYMPH % 12.1 % (24.0-44.0); MEAN CORPUSCULAR HEMOGLOBIN 31.9 pg (27.0-33.0); MEAN CORPUSCULAR HGB CONC 32.6 g/dl (32.0-36.5); MEAN CORPUSCULAR VOLUME 97.7 fl (80.0-96.0); MONO # 0.8 10^3/uL (0.0-0.8); MONO % 5.9 % (0.0-5.0); NEUTROPHILS # 10.7 10^3/uL (1.5-8.5); NEUTROPHILS % 79.3 % (36.0-66.0); PLATELET COUNT, AUTOMATED 378 10^3/uL (150-450); RED BLOOD COUNT 3.86 10^6/uL (4.00-5.40); WHITE BLOOD COUNT 13.5 10^3/uL (4.0-10.0)
[2019-04-18 18:40] LABS: INR 0.96; PROTHROMBIN TIME 12.4 SECONDS (11.8-14.0)
[2019-04-18 18:41] LABS: PARTIAL THROMBOPLASTIN TIME 38.9 SECONDS (25.0-38.4)
[2019-04-18 19:03] LABS: ALBUMIN 3.3 GM/DL (3.2-5.2); ALT/SGPT 31 U/L (12-78); BILIRUBIN,DIRECT < 0.1 MG/DL (0.0-0.2); BILIRUBIN,TOTAL 0.3 MG/DL (0.2-1.0); BLOOD UREA NITROGEN 29 MG/DL (7-18); CALCIUM LEVEL 8.8 MG/DL (8.8-10.2); CARBON DIOXIDE LEVEL 26 MEQ/L (21-32); CHLORIDE LEVEL 97 MEQ/L (98-107); CK-MB VALUE MASS 3.1 NG/ML (<3.6); CPK CREATINE PHOSPHOKINASE 92 U/L (26-192); CREATININE FOR GFR 2.99 MG/DL (0.55-1.30); GLOMERULAR FILTRATION RATE 16.5 (>45); GLUCOSE, FASTING 454 MG/DL (70-100); LIPASE 284 U/L (73-393); MB/CK RELATIVE INDEX 3.37 (< OR =4); NT-PRO BNP 1171 PG/ML (<125); POTASSIUM SERUM 4.4 MEQ/L (3.5-5.1); SODIUM LEVEL 131 MEQ/L (136-145); TOTAL PROTEIN 7.4 GM/DL (6.4-8.2); TROPONIN I < 0.02 NG/ML (< 0.10)
[2019-04-18] MEDS ORDERED: HumuLIN R (REGULAR) INSULIN (NovoLIN R) **100U/ML** PER UNIT IV ONE (19:45)
[2019-04-18] MEDS ORDERED: ASPIRIN 325 MG TAB PO ONE (19:45)
--- NOTE | 2019-04-18 21:01 | ECGEPIP ---
[facility] - ED Test Date: 2019-04-18 Pat Name: MARYBETH HERNADEZ Department: Room: - Gender: Female [employer] Director: AB : 1950 Requested By: SUZY Caputo Order Number: [id number] Reading MD: Lynn Womack Measurements Intervals [place] Rate: 79 P: 39 MD: 152 QRS: 4 QRSD: 141 T: 156 QT: 407 QTc: 469 Interpretive Statements SINUS RHYTHM LEFT BUNDLE BRANCH BLOCK SIMILAR 08/10/18 Electronically Signed on 04-18-2019 21:01:04 EDT by Lynn Womack
[2019-04-18 22:09] LABS: CK-MB VALUE MASS 2.4 NG/ML (<3.6); CPK CREATINE PHOSPHOKINASE 81 U/L (26-192); MB/CK RELATIVE INDEX 2.96 (< OR =4); TROPONIN I < 0.02 NG/ML (< 0.10)
[2019-04-18 22:27] VITALS: BP 141/78
--- NOTE | 2019-04-19 18:55 | ECGEPIP ---
[facility] - ED Test Date: 2019-04-18 Pat Name: MARYBETH HERNADEZ Department: Room: - Gender: Female Director Funds Development: apoorva : 1950 Requested By: CARINA ALVARES Order Number: [id number] Reading MD: Lynn Womack Measurements Intervals [place] Rate: 74 P: 50 RI: 148 QRS: 5 QRSD: 142 T: 170 QT: 418 QTc: 467 Interpretive Statements SINUS RHYTHM LEFT BUNDLE BRANCH BLOCK SIMILAR 04/18/19 Electronically Signed on 04-19-2019 18:55:24 EDT by Lynn Womack
== END 2019-04-18 22:28 | disposition home or self-care (01) ==
LOC: EDSEX 17:17 → EDBD 17:17 → M ED 17:17
DX: E11.65 Type 2 diabetes mellitus with hyperglycemia (principal); N18.9 Chronic kidney disease, unspecified; I25.10 Atherosclerotic heart disease of native coronary artery without angina pectoris; I12.9 Hypertensive chronic kidney disease with stage 1 through stage 4 chronic kidney disease, or unspecified chronic kidney disease; E78.49 Other hyperlipidemia; G47.33 Obstructive sleep apnea (adult) (pediatric); Z98.61 Coronary angioplasty status; Z88.1 Allergy status to other antibiotic agents; Z88.2 Allergy status to sulfonamides; Z88.8 Allergy status to other drugs, medicaments and biological substances; Z91.040 Latex allergy status

== ENCOUNTER 2019-04-29 13:36 | Inpatient (IN) | payer MEDICARE ==
[~2019-04-29] VITALS: Ht 142.2 cm; Wt 90.5 kg
[~2019-04-29 13:36] MED LIST changes: +HUMA100I5 SC; +LANTINJ4 SC
[2019-04-29] MEDS ORDERED: NS 1,000 ML IV SCH (13:50)
[2019-04-29] MEDS ORDERED: ONDANSETRON 4MG/2ML VIAL (J2405) IV ONE (14:00)
--- NOTE | 2019-04-29 14:14 | REP ---
Clinical: Chest pain and malaise. Comparison: 04/18/2019. Findings: Double-lumen dialysis catheter again noted with tip in the SVC/right atrium. The mediastinum and cardiac silhouette are stable. Lung aquino demonstrate diffuse chronic interstitial changes along with chronic left pleuroparenchymal changes including blunting and elevation to the left diaphragmatic surface with blunting of the left costophrenic angle and lateral pleural thickening. No obvious acute process. No pneumothorax. Skeletal structures are intact. Impression: 1. Chronic appearing pleuroparenchymal changes at the left base unchanged from prior examination. 2. No obvious acute process appreciated. Electronically Signed by John King MD 04/29/2019 02:05 P
[2019-04-29 14:28] LABS: BASO # 0.1 10^3/uL (0.0-0.2); BASO % 0.6 % (0.0-1.0); EOS # 0.2 10^3/uL (0.0-0.5); EOS % 1.7 % (0.0-3.0); HEMATOCRIT 30.8 % (36.0-47.0); HEMOGLOBIN 9.9 g/dl (12.0-15.5); LYMPH # 1.1 10^3/uL (1.5-5.0); LYMPH % 8.8 % (24.0-44.0); MEAN CORPUSCULAR HEMOGLOBIN 31.6 pg (27.0-33.0); MEAN CORPUSCULAR HGB CONC 32.1 g/dl (32.0-36.5); MEAN CORPUSCULAR VOLUME 98.4 fl (80.0-96.0); MONO # 0.7 10^3/uL (0.0-0.8); MONO % 5.4 % (0.0-5.0); NEUTROPHILS # 10.6 10^3/uL (1.5-8.5); NEUTROPHILS % 82.6 % (36.0-66.0); PLATELET COUNT, AUTOMATED 287 10^3/uL (150-450); RED BLOOD COUNT 3.13 10^6/uL (4.00-5.40); WHITE BLOOD COUNT 12.8 10^3/uL (4.0-10.0)
[2019-04-29 14:57] LABS: ALBUMIN 2.9 GM/DL (3.2-5.2); ALT/SGPT 23 U/L (12-78); BILIRUBIN,DIRECT < 0.1 MG/DL (0.0-0.2); BILIRUBIN,TOTAL 0.3 MG/DL (0.2-1.0); BLOOD UREA NITROGEN 108 MG/DL (7-18); CALCIUM LEVEL 7.7 MG/DL (8.8-10.2); CARBON DIOXIDE LEVEL 21 MEQ/L (21-32); CHLORIDE LEVEL 105 MEQ/L (98-107); CREATININE FOR GFR 5.62 MG/DL (0.55-1.30); GLUCOSE, FASTING 235 MG/DL (70-100); LIPASE 260 U/L (73-393); POTASSIUM SERUM 5.1 MEQ/L (3.5-5.1); SODIUM LEVEL 136 MEQ/L (136-145); TOTAL PROTEIN 6.8 GM/DL (6.4-8.2)
[2019-04-29] MEDS ORDERED: VITAD1000T PO (16:10)
[2019-04-29] MEDS ORDERED: ACET-683 PO (16:11)
--- NOTE | 2019-04-29 16:46 | HPEPDOC ---
[facility] Medical History & Physical Date of Admission Apr 29, 2019 Date of Service: Apr 29, 2019 History and Physical CHIEF COMPLAINT: SOB HISTORY OF PRESENT ILLNESS: Patient is 68 year old female with PMH ESRD on HD MWF, IDDM, CAD s/p PCI, chronic HFpEF, Asthma, GERD presents to the ER with complaints of feeling ill and SOB. She stated that she started having diarrhea early in the week and had not gone to dialysis because of that. Diarrhea had resolved but she missed 2 sessions and started to get SOB this morning. She also reports associated chills and feel like she is wheezing. Otherwise denies any other complaints including chest pain, fever, nausea, vomiting, or diarrhea at this time. PAST MEDICAL HISTORY: Refer to HPI PAST SURGICAL HISTORY: Appendectomy Cataract surgery Carpal tunnel surgery Tonsillectomy SOCIAL HISTORY: Denies tobacco, alcohol or illicit drug use. FAMILY HISTORY: Mother- COPD Father- unknown ALLERGIES: Please see below. REVIEW OF SYSTEMS: 10 point review of system negative except as stated in HPI HOME MEDICATIONS: Please see below. PHYSICAL EXAMINATION: General: Alert, morbidly obese, limited in mobility Eyes: Normal sclera, EOMI HENT: Atraumatic Cardiovascular: Normal rate Pulmonary: no wheezing appreciated, decrease breath sounds due to body habitus, possibly minimal crackles at lung bases. GI: Soft, nontender, nondistended Skin: Warm and dry Neuro: CN grossly intact. No focal deficits. Psych: oriented x 3 LABORATORY DATA: See below. IMAGING: CXR- 1. Chronic appearing pleuroparenchymal changes at the left base unchanged from prior examination. 2. No obvious acute process appreciated. MICROBIOLOGY: Please see below. ASSESSMENT AND PLAN: 1. ESRD on HD MWF - missed 2 session of dialysis now with SOB started today. - Likely 2/2 fluid overload. No significant wheezing noted on lung exam, may have minimal crackles. - Consulted nephrology for likely HD tomorrow. Elevated BUN/Cr but electrolytes are otherwise satisfactory. K 5.1. - c/w diuresis in the mean time. 2. chronic HFpEF - No significant LE edema but symptomatically likely fluid overloaded 2/2 missed HD. - c/w torsemide. 3. IDDM - resume home insulin regimen. -ISS with ACHS. 4. CAD s/p PCI - c/w asa, plavix and statin. - No active chest pain. EKG with LBBB, old, similar to previous EKGs. 5. Asthma - Has SOB but in no apparent respiratory distress. - c/w nebs PRN. 6. GERD - c/w prilosec. 7. Hypothyroidism - on synthroid 112 mcg. 8. Morbid obesity BMI 44.8, complicating nursing care DVT ppx: HSQ and RAFA Code status: Full code Vital Signs Vital Signs Date Time Temp Pulse Resp B/P (MAP) Pulse Ox O2 Delivery O2 Flow Rate FiO2 04/29/19 15:31 95.7 22 Room Air 04/29/19 15:15 58 112/76 (88) 99 Laboratory Data Labs 24H Laboratory Tests 2 04/29/19 14:22: Immature Granulocyte % (Auto) 0.9, Neutrophils (%) (Auto) 82.6H, Lymphocytes (%) (Auto) 8.8L, Monocytes (%) (Auto) 5.4H, Eosinophils (%) (Auto) 1.7, Basophils (%) (Auto) 0.6, Neutrophils # (Auto) 10.6H, Lymphocytes # (Auto) 1.1L, Monocytes # (Auto) 0.7, Eosinophils # (Auto) 0.2, Basophils # (Auto) 0.1, Nucleated Red Blood Cells % (auto) 0.0, Anion Gap 10, Glomerular Filtration Rate 8.0L, Calcium Level 7.7L, Total Bilirubin 0.3, Direct Bilirubin < 0.1, Aspartate Amino Transf (AST/SGOT) 14, Alanine Aminotransferase (ALT/SGPT) 23, Alkaline Phosphatase 111, Total Protein 6.8, Albumin 2.9L, Albumin/Globulin Ratio 0.74L, Lipase 260 CBC/BMP Laboratory Tests 04/29/19 14:22 Home Medications Scheduled Aspirin (Aspirin EC) 81 Mg Tab, 81 MG PO DAILY Atorvastatin Calcium (Atorvastatin Calcium) 40 Mg Tab, 40 MG PO DAILY Azelastine HCl (Azelastine HCl) 0.15 % Spr, 1 SPRAY NARES DAILY Budesonide/Formoterol (Symbicort 160-4.5 Mcg Inhaler) 6 Gm Hfa.aer.ad, 2 PUFF INH BID Calcitriol (Calcitriol) 0.25 Mcg Cap, 0.25 MCG PO 3XW RECEIVES AT DIALYIS MON/WED/FRI Cholecalciferol (Vitamin D3) (Vitamin D3) 1,000 Unit Tablet, 1,000 UNITS PO DAILY Clopidogrel Bisulfate (Clopidogrel) 75 Mg Tablet, 75 MG PO DAILY Dulaglutide (Trulicity) 1.5 Mg/0.5 Ml Pen.injctr, 1.5 MG SC QWEEK FRIDAYS Ferrous Sulfate (Iron) 325 Mg Tablet, 325 MG PO DAILY Insulin Glargine,Hum.rec.anlog (Lantus Solostar) 100 Unit/1 Ml Insuln.pen, 10 UNITS SC DAILY Insulin Lispro (Humalog Kwikpen U-100) 100 Unit/1 Ml Insuln.pen, 20 UNITS SC AC Levothyroxine Sodium (Levothyroxine Sodium) 112 Mcg Tab, 112 MCG PO DAILY Metoprolol Tartrate (Metoprolol Tartrate) 50 Mg Tablet, 50 MG PO BID Omeprazole (Omeprazole) 20 Mg Tab, 20 MG PO DAILY Torsemide (Torsemide) 20 Mg Tablet, 40 MG PO 4XWK TAKES ON NON-DIALYSIS DAYS TUE//TUE/TUE Scheduled PRN Acetaminophen (Acetaminophen) 500 Mg Tablet, 1,000 MG PO Q6H PRN for PAIN Albuterol Sulfate (Ventolin Hfa) 108 Mcg/Act Aer, 2 PUFFS INH QID PRN for SHORTNESS OF BREATH Dextrose (Glucose) 4 Gm Chw, 4 GM PO ASDIRECTED PRN for BLOOD SUGAR < 50 Loperamide HCl (Imodium A-D) 2 Mg Tablet, 2 MG PO DAILY PRN for DIARRHEA Nitroglycerin (Nitrostat) 0.4 Mg Subl, 0.4 MG SL Q5MP PRN for CHEST PAIN Allergies Coded Allergies: cephalexin (Verified Allergy, Severe, RASH, DYSPNEA, 01/01/19) gatifloxacin (Verified Allergy, Severe, RASH, DYSPNEA, 01/01/19) tramadol (Verified Allergy, Severe, RASH, DYSPNEA, 01/01/19) chlorhexidine (Verified Allergy, Mild, RASH, 02/23/19) nitrofurantoin (Verified Allergy, Mild, RASH, 01/01/19) Cephalosporins (Verified Allergy, Unknown, 02/23/19) latex (Verified Allergy, Unknown, RED, SWOLLEN, RASH, 01/01/19) sulfamethoxazole (Verified Adverse Reaction, Intermediate, EFFECTS KIDNEY FUNCTION, 01/01/19) trimethoprim (Verified Adverse Reaction, Intermediate, EFFECTS KIDNEY FUNCTION, 01/01/19) A-FIB/CHADSVASC A-FIB History Current/History of A-Fib/PAF?: No ZANE MELÉNDEZ MD Apr 29, 2019 16:46
[2019-04-29] MEDS ORDERED: LOPERAMIDE 2 MG CAPLET PO PRN (17:00)
[2019-04-29] MEDS ORDERED: GLUCOSE 4 GM CHEW TABLET PO PRN (17:00)
[2019-04-29] MEDS ORDERED: ALBUTEROL 90 MCG/ACT 8GM HFA INHALER INH PRN (17:00)
[2019-04-29] MEDS ORDERED: NITROGLYCERIN 0.4 MG SUBL TABLET SL PRN (17:00)
[2019-04-29] MEDS: HumaLOG INSULIN (NovoLOG) PER UNIT SC SCH (17:30)
[2019-04-29 17:45] VITALS: BP 135/59
[2019-04-29 17:48] VITALS: O2SAT 100
--- NOTE | 2019-04-29 17:52 | ECGEPIP ---
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
[2019-04-29] MEDS: METOPROLOL TART 50 MG TAB PO SCH (20:56)
[2019-04-29] MEDS: HEPARIN SOD (PORCINE) 5000 UNITS/ML VIAL (J1644 PER 1000UNITS) SC SCH (21:02)
[2019-04-29] MEDS: SYMBICORT 160/4.5MCG INHALER 6GM INH SCH (21:37)
[2019-04-29 22:00] VITALS: BP 154/82
[2019-04-30] MEDS: ACETAMINOPHEN 500 MG TAB PO PRN ×2 (01:08→15:27)
[2019-04-30 06:00] VITALS: BP 118/90
[2019-04-30] MEDS: HEPARIN SOD (PORCINE) 5000 UNITS/ML VIAL (J1644 PER 1000UNITS) SC SCH ×2 (06:17→14:51)
[2019-04-30] MEDS: LEVOTHYROXINE 112MCG TABLET (0.112MG) PO SCH (06:17)
[2019-04-30] MEDS: METOPROLOL TART 50 MG TAB PO SCH ×2 (06:18→20:07)
[2019-04-30 06:23] LABS: HEMATOCRIT 28.2 % (36.0-47.0); HEMOGLOBIN 9.3 g/dl (12.0-15.5); MEAN CORPUSCULAR HEMOGLOBIN 32.4 pg (27.0-33.0); MEAN CORPUSCULAR VOLUME 98.3 fl (80.0-96.0); PLATELET COUNT, AUTOMATED 286 10^3/uL (150-450); RED BLOOD COUNT 2.87 10^6/uL (4.00-5.40); WHITE BLOOD COUNT 11.8 10^3/uL (4.0-10.0)
[2019-04-30 06:45] LABS: ALBUMIN 2.7 GM/DL (3.2-5.2); BILIRUBIN,TOTAL 0.3 MG/DL (0.2-1.0); CALCIUM LEVEL 7.7 MG/DL (8.8-10.2); CREATININE FOR GFR 5.35 MG/DL (0.55-1.30); GLOMERULAR FILTRATION RATE 8.4 (>45); POTASSIUM SERUM 4.6 MEQ/L (3.5-5.1)
[2019-04-30] MEDS: SYMBICORT 160/4.5MCG INHALER 6GM INH SCH ×2 (08:05→20:17)
[2019-04-30] MEDS: OMEPRAZOLE 20 MG CAP PO SCH (08:06)
[2019-04-30] MEDS: ATORVASTATIN 20 MG TAB PO SCH (08:06)
[2019-04-30] MEDS: VITAMIN D 1,000 INTERNATIONAL UNITS TABLET PO SCH (08:06)
[2019-04-30] MEDS: LEVEMIR (INSULIN DETEMIR) 1 UNITS/0.01ML SC SCH (08:07)
[2019-04-30] MEDS: HumaLOG INSULIN (NovoLOG) PER UNIT SC SCH ×3 (08:07→17:30)
[2019-04-30] MEDS: ASPIRIN 81 MG ENTERIC TAB PO SCH (09:00)
[2019-04-30] MEDS ORDERED: ASPIRIN 81 MG ENTERIC TAB PO SCH (09:00)
[2019-04-30] MEDS ORDERED: FERROUS SULFATE 325MG TAB PO SCH (09:00)
[2019-04-30] MEDS ORDERED: CLOPIDOGREL 75 MG TAB PO SCH (09:00)
[2019-04-30] MEDS ORDERED: IRON SUCROSE 100MG 5ML VIAL (J1756 PER 1MG) IV SCH (10:00)
[2019-04-30] MEDS ORDERED: DARBEPOETIN 200MCG/0.4ML *DIALYSIS* SYRINGE (J0882 PER 1MCG) IV SCH (10:00)
[2019-04-30] MEDS ORDERED: HEPARIN 1,000 UNITS/ML 10ML VIAL (FOR RADIOLOGY& DIALYSIS ONLY)(J1644-10) IV ONE (11:30)
[2019-04-30] MEDS ORDERED: HEPARIN 1,000 UNITS/ML 10ML VIAL (FOR RADIOLOGY& DIALYSIS ONLY)(J1644-10) XX ONE (11:30)
[2019-04-30] MEDS ORDERED: DARBEPOETIN 100 MCG/0.5 ML *DIALYSIS* SYRINGE (J0882) IV ONE (12:00)
--- NOTE | 2019-04-30 12:36 | CR ---
DATE OF CONSULTATION: 04/30/2019 REQUESTING PHYSICIAN: Dr. Vasquez Frye CONSULTING PHYSICIAN: Dr. Shane REASON FOR CONSULTATION: Management of end-stage renal disease and hemodialysis. CHIEF COMPLAINT: The patient presented to the emergency room with progressive shortness of breath. HISTORY OF PRESENT ILLNESS: Barbie Duran is a 68 year old female with past medical history of end-stage renal disease on hemodialysis q. Tuesday, Tuesday, Tuesday, chronic diastolic congestive heart failure, and multiple other comorbidities as mentioned below. She is supposed to come for dialysis on a regular schedule, but she missed the last two sessions of dialysis on Tuesday and Tuesday and reported she was not feeling well so she did not come for dialysis She started getting progressive shortness of breath and instead of coming for dialysis she presented to the emergency room yesterday. She was admitted under the hospitalist service yesterday because of acute on chronic decompensated diastolic congestive heart failure. Nephrology service was called for further help in the management of this patient. I saw and evaluated the patient today morning at the bedside during hemodialysis procedure which I had already arranged today morning to be done. The patient is tolerating the hemodialysis procedure well. PAST MEDICAL HISTORY: Past medical history of end-stage renal disease on hemodialysis q. Tuesday, Tuesday, Tuesday, diabetes mellitus type 2 - insulin dependent, coronary artery disease status post percutaneous coronary intervention (PCI) in the past, chronic diastolic congestive heart failure, asthma, gastroesophageal reflux disease, and morbid obesity. PAST SURGICAL HISTORY: Status post appendectomy in the past, status post cataract surgery, carpal tunnel surgery, tonsillectomy, , status post right upper arm AV fistula placement, and left internal jugular (IJ) tunneled dialysis catheter placement. ALLERGIES: She is allergic to CEPHALOSPORINS, CHLORHEXIDINE, CHLOROQUINOLONES, LATEX, NITROFURANTOIN, and SULFA DRUGS. FAMILY HISTORY: No significant family history of end-stage renal disease requiring hemodialysis. SOCIAL HISTORY: The patient denies any smoking, illicit drug abuse or alcohol abuse. REVIEW OF SYSTEMS: Constitutional: The patient denies any fevers or chills. Eyes: She denies any blurry vision or double vision. ENT: She denies any dysphagia or odynophagia. Respiratory: Mildly decreased breath sounds at the bases, otherwise no active rales or rhonchi. Abdomen is obese, soft. No organomegaly was noted. Musculoskeletal: No clubbing or cyanosis. Pulses are 2+. GLOBAL ACCOUNT MANAGER: No focal deficit. Power is 5/5 in all extremities. LAB REVIEW: CBC showed a WBC of 11.8, hemoglobin 9.3, platelets of 286. BMP showed sodium 139, potassium 4.6, chloride 107, bicarb 21, BUN 107, creatinine 5.3, albumin is 2.7. IMAGING STUDIES: A chest x-ray was done yesterday which showed chronic pleural parenchymal changes at the left base. No obvious acute process was appreciated. CURRENT INPATIENT MEDICATIONS: The patient's medications include Tylenol p.r.n., albuterol p.r.n., aspirin 81 mg daily, Lipitor 40 mg daily, Symbicort two puffs twice a day, Plavix 75 mg by mouth daily, Aranesp was started today morning 200 mcg IV with hemodialysis, ferrous sulfate 325 mg by mouth daily, insulin Levemir 10 units subcutaneous daily, insulin lispro sliding scale. I have started her on Venofer 200 mg IV with hemodialysis. She is on levothyroxine 112 mcg by mouth daily, Imodium p.r.n. for diarrhea, metoprolol 50 mg by mouth twice a day, omeprazole 20 mg by mouth daily, Zofran p.r.n., and vitamin D 1000 units by mouth daily. ASSESSMENT: 68-year-old female with history of insulin dependent diabetes, coronary artery disease, chronic diastolic congestive heart failure, history of asthma, and end-stage renal disease on hemodialysis admitted at this time with shortness of breath secondary to noncompliance with hemodialysis. PLAN: 1. End-stage renal disease on hemodialysis. The patient has missed two sessions of hemodialysis last week. She is being urgently dialyzed at this time today morning. She is tolerating the hemodialysis procedure well. Ultrafiltration goal is 5 liters as tolerated by her blood pressure. 2. Anemia in end-stage renal disease. The patient is started on Venofer and Aranesp with dialysis. Hemoglobin level is expected to improve. 3. Acute on chronic diastolic congestive heart failure. As mentioned above, the patient has missed two sessions of dialysis. Her volume status would get better with dialysis today. 4. Diabetes mellitus type 2 insulin dependent. Continue current dose of insulin regimen. 5. Coronary artery disease without angina pectoris. Continue current dose of aspirin, Lipitor, metoprolol and Plavix. 6. Hypothyroidism. Continue current dose of levothyroxine 112 mcg by mouth daily. Thank you for involving me in the care of this patient. I shall be happy to follow the patient along with you tomorrow morning.
[2019-04-30] MEDS ORDERED: ALBUTEROL SULFATE 2.5 MG/0.5 ML INH NEB SOLN INH PRN (12:45)
[2019-04-30 14:00] VITALS: BP 114/49
[2019-04-30] MEDS: CAPSAICIN 0.025% CR 60 GM TOP PRN (15:26)
--- NOTE | 2019-04-30 15:29 | IPNPDOC ---
Date Seen The patient was seen on 04/30/19. Progress Note SUBJECTIVE: Patient underwent HD this morning and reported that she is breathing much bet ter, although still reports some SOB. Denies any other complaints in particular apart from mild SOB. BUN/Cr this AM 107/5.35. Afebrile overnight. K 4.5 OBJECTIVE PHYSICAL EXAMINATION: VITAL SIGNS: Please see below. General: Alert, morbidly obese, limited in mobility Eyes: Normal sclera, EOMI HENT: Atraumatic Cardiovascular: Normal rate Pulmonary: no wheezing appreciated, decrease breath sounds due to body habitus, possibly minimal crackles at lung bases. GI: Soft, nontender, nondistended Skin: Warm and dry Neuro: CN grossly intact. No focal deficits. Psych: oriented x 3 LABORATORY DATA, IMAGING STUDIES, MICROBIOLOGY: Please see below. DVT prophylaxis ordered?: HSQ and RAFA IMAGING: CXR- 1. Chronic appearing pleuroparenchymal changes at the left base unchanged from prior examination. 2. No obvious acute process appreciated. MICROBIOLOGY: Please see below. ASSESSMENT AND PLAN: 1. ESRD on HD MWF - missed 2 session of dialysis and presented with SOB. improved post dialysis. - Monitor electrolytes. Unsure if patient will need another HD session tomorrow given current volume status. - Diuretic had been held as patient only takes it on days when she doesn't get HD. If she doesn't get HD tomorrow, restart diuretic. 2. chronic HFpEF - No significant LE edema but symptomatically likely fluid overloaded 2/2 missed HD. - c/w torsemide schedule as at home on days when HD is not given. 3. IDDM - resume home insulin regimen. -ISS with ACHS. 4. CAD s/p PCI - c/w asa, plavix and statin. - No active chest pain. EKG with LBBB, old, similar to previous EKGs. 5. Asthma - Has SOB but in no apparent respiratory distress. - c/w nebs PRN. 6. GERD - c/w prilosec. 7. Hypothyroidism - on synthroid 112 mcg. 8. Morbid obesity BMI 44.8, complicating nursing care DVT ppx: HSQ and RAFA Code status: Full code Dispo: Likely can be d/c tomorrow if pass PT home safety eval and clear by nephro. Re-assess breathing status in AM. VS, I&O, 24H, [place] Vital Signs/I&O Vital Signs Date Time Temp Pulse Resp B/P (MAP) Pulse Ox O2 Delivery O2 Flow Rate FiO2 04/30/19 14:00 97.2 77 17 114/49 (70) 99 Room Air I&O- Last 24 Hours up to 6 AM 04/30/19 06:00 Intake Total 900 ml Output Total 400 ml Balance 500 ml Laboratory Data 24H LABS Laboratory Tests 2 04/30/19 06:03: Nucleated Red Blood Cells % (auto) 0.0, Anion Gap 11, Glomerular Filtration Rate 8.4L, Calcium Level 7.7L, Total Bilirubin 0.3, Aspartate Amino Transf (AST/SGOT) 10, Alanine Aminotransferase (ALT/SGPT) 15, Alkaline Phosphatase 98, Total Protein 6.0L, Albumin 2.7L, Albumin/Globulin Ratio 0.82L 04/30/19 13:03: Bedside Glucose (Misc Panel) 104 CBC/BMP Laboratory Tests 04/30/19 06:03 ZANE MELÉNDEZ MD Apr 30, 2019 15:29
[2019-04-30 16:51] VITALS: O2SAT 97
[2019-04-30] MEDS: NYSTATIN 100,000 UNITS/GM TOPICAL PWD 15 GM TOP SCH (20:11)
[2019-04-30 21:46] VITALS: O2SAT 96
[2019-04-30 21:54] LABS: HEMATOCRIT 25.5 % (36.0-47.0); HEMOGLOBIN 8.4 g/dl (12.0-15.5)
[2019-04-30 22:00] VITALS: BP 106/42
[2019-05-01] VITALS (11 sets, daily range): BP systolic 90–116; BP diastolic 42–53; O2SAT 96–97
[2019-05-01] MEDS: ACETAMINOPHEN 500 MG TAB PO PRN (01:44)
[2019-05-01 03:30] LABS: HEMATOCRIT 25.6 % (36.0-47.0); HEMOGLOBIN 8.4 g/dl (12.0-15.5)
[2019-05-01] MEDS: LEVOTHYROXINE 112MCG TABLET (0.112MG) PO SCH (06:10)
[2019-05-01 06:44] LABS: HEMATOCRIT 24.6 % (36.0-47.0); HEMOGLOBIN 8.1 g/dl (12.0-15.5); MEAN CORPUSCULAR HEMOGLOBIN 32.3 pg (27.0-33.0); MEAN CORPUSCULAR HGB CONC 32.9 g/dl (32.0-36.5); PLATELET COUNT, AUTOMATED 292 10^3/uL (150-450); RED BLOOD COUNT 2.51 10^6/uL (4.00-5.40); WHITE BLOOD COUNT 14.1 10^3/uL (4.0-10.0)
[2019-05-01 07:04] LABS: ALBUMIN 2.6 GM/DL (3.2-5.2); BILIRUBIN,TOTAL 0.3 MG/DL (0.2-1.0); CALCIUM LEVEL 7.3 MG/DL (8.8-10.2); CREATININE FOR GFR 3.92 MG/DL (0.55-1.30); GLOMERULAR FILTRATION RATE 12.1 (>45); POTASSIUM SERUM 4.5 MEQ/L (3.5-5.1); TOTAL PROTEIN 5.7 GM/DL (6.4-8.2)
[2019-05-01] MEDS: SYMBICORT 160/4.5MCG INHALER 6GM INH SCH ×2 (07:43→20:11)
[2019-05-01] MEDS: NYSTATIN 100,000 UNITS/GM TOPICAL PWD 15 GM TOP SCH (08:07)
[2019-05-01] MEDS: ATORVASTATIN 20 MG TAB PO SCH (08:07)
[2019-05-01] MEDS: OMEPRAZOLE 20 MG CAP PO SCH (08:07)
[2019-05-01] MEDS: ASPIRIN 81 MG ENTERIC TAB PO SCH (08:07)
[2019-05-01] MEDS: VITAMIN D 1,000 INTERNATIONAL UNITS TABLET PO SCH (08:07)
[2019-05-01] MEDS: LEVEMIR (INSULIN DETEMIR) 1 UNITS/0.01ML SC SCH (08:08)
[2019-05-01] MEDS: METOPROLOL TART 50 MG TAB PO SCH ×2 (08:08→21:33)
[2019-05-01] MEDS: HumaLOG INSULIN (NovoLOG) PER UNIT SC SCH ×3 (08:18→16:20)
[2019-05-01] MEDS ORDERED: PREVNAR 13 VACCINE SYRINGE (CPT CODE:90670) IM ONE (09:00)
[2019-05-01] MEDS ORDERED: D5W MINI IV SCH (11:30)
[2019-05-01] MEDS ORDERED: AZTREONAM IV SCH (11:30)
--- NOTE | 2019-05-01 12:16 | IPN ---
DATE: 05/01/2019 SUBJECTIVE: The patient was seen and examined the bedside this morning. She was dialyzed yesterday. She tolerated the hemodialysis procedure well. 1.1 liters of fluid was removed. The last 24-hour events were noted. The patient started having bright red blood per rectum and mixed with the stools. She is currently being worked up for possible GI bleed. Plavix was stopped yesterday. The patient reports moderate amount of pain in the lower abdomen bilaterally. She denies any nausea, vomiting or fevers or chills but she has worsening leukocytosis. OBJECTIVE: Vital signs: Temperature is 96.8 degrees Fahrenheit, blood pressure 113/46, pulse is 70, respiratory of 16, saturating 96% on room air. Intake and output: Urine output is not recorded since overnight. Ultrafiltration with hemodialysis was 1.9 liters weight in the bed scale is 88.3 kg. PHYSICAL EXAMINATION: General: The patient is awake, alert, oriented times three, laying in bed in no apparent distress. Head and neck exam extraocular muscles intact. Pupils equally round and reactive to light. Mucous membranes are moist. Neck is supple. There is no jugular venous distention (JVD). Cardiovascular: S1, S2 regular rate. No edema of the bilateral lower extremities. Respiratory: Chest is clear to auscultation bilaterally. Bilateral equal air entry. No rales or rhonchi. Abdomen: Soft, mildly tender to deep palpation in bilateral lower quadrants Genitourinary: Bladder is not palpable. Musculoskeletal: No clubbing or cyanosis. Pulses are 2+. AV axis: She has a right upper arm AV fistula with a positive thrill and bruit and she has a left internal jugular (IJ) tunneled hemodialysis catheter. Central nervous system (VOLUMETRIC WEIGHER): No focal deficit. Power is 5/5 in all extremities. LAB REVIEW: CBC showed WBC 14.1, hemoglobin 8.1, platelets of 292. BMP showed sodium 137, potassium 4.5, chloride 103, bicarb 26, BUN 51, creatinine is 3.9, albumin is 2.6. CURRENT INPATIENT MEDICATIONS. The patient's medications were all reviewed by me. The patient is allergic to multiple antibiotics so I have started her on aztreonam 0.5 grams IV every 12 hourly and Flagyl 500 mg IV every eight hourly, Plavix was stopped yesterday. She continues to be on aspirin. No other change in the medications today as compared with yesterday. ASSESSMENT/PLAN: 1. End-stage renal disease: The patient was dialyzed yesterday after missing two sessions of dialysis last week. Volume status is optimal. No urgent need of dialysis again today. She will be dialyzed tomorrow morning. 2. Anemia secondary to end-stage renal disease and possible GI bleed. I have ordered 1 unit of pack red blood cell (PRBC) transfusion. Continue current dose of Venofer and Aranesp with dialysis as well. 3. Bright red blood per rectum: The patient has tenderness in the bilateral lower quadrant. She has history of diverticulosis as well. I have covered her with antibiotics for possible diverticulitis versus GI bleed and as mentioned above, she has been started on Azactam and IV Flagyl. Rest of the management is as per primary team. 4. Chronic diastolic congestive heart failure. Volume status is optimal. Further dialysis and fluid removal will be tomorrow morning. 5. Coronary artery disease without angina pectoris: The patient is having blood per rectum. She continues to be on aspirin and Lipitor and metoprolol. Plavix has been stopped. 6. Diabetes mellitus type 2 insulin dependent. Continue insulin Levemir and sliding scale.
[2019-05-01] MEDS: metroNIDAZOLE 500 MG in IV 1 EA IV SCH ×2 (12:23→21:34)
[2019-05-01] MEDS: AZTREONAM 0.5 GM in D5W 50 ML IV SCH (14:23)
[2019-05-01] MEDS: ONDANSETRON 4 MG TAB (S0181) PO PRN (18:34)
--- NOTE | 2019-05-01 19:24 | IPNPDOC ---
Date Seen The patient was seen on 05/01/19. Progress Note SUBJECTIVE: 68-year-old female with past medical history of end-stage renal disease, diabetes mellitus, coronary artery disease and GERD who was admitted for missing 2 of her dialysis sessions and presenting with volume overload requiring emergent hemodialysis. Upon completion of hemodialysis. Patient developed bright red blood per rectum, which has persisted since then and had multiple episodes overnight and one episode in the morning today. Patient denies any prior history of GI bleed, currently on aspirin and Plavix for coronary artery disease/peripheral artery disease. Patient is otherwise asymptomatic, denies any shortness of breath, chest pain, nausea, vomiting or headache. She does report mild diffuse abdominal pain. 10 point review of system is negative except for above PHYSICAL EXAMINATION: VITAL SIGNS: Please see below. GENERAL: Morbidly Obese HEENT: Normocephalic, atraumatic, moist mucous membranes NECK: Supple CARDIOVASCULAR EXAMINATION: S1, S2, no murmurs RESPIRATORY EXAMINATION: Scattered rhonchi, no wheezing ABDOMINAL EXAMINATION: Soft, mild diffuse tenderness, nondistended, positive bowel sounds EXTREMITIES: Range of motion intact SKIN: No rash NEUROLOGICAL EXAMINATION: Alert and oriented 3, no focal deficits PSYCHIATRIC EXAMINATION: Calm and cooperative LABORATORY DATA, IMAGING STUDIES, MICROBIOLOGY: Please see below. ASSESSMENT AND PLAN: 68-year-old female with multiple medical comorbidities admitted for rectal bleeding and missing outpatient with dialysis. PROBLEMS: 1. GI bleed: Will hold Plavix, H&H downtrending, transfuse 1 unit of packed red blood cells today, GI following, empiric antibiotics, GI panel pending. 2. End-stage renal disease: Missed 2 consecutive hemodialysis sessions prior to hospitalization, now stable after receiving hemodialysis, continue further management as per nephrology. 3. Diabetes mellitus: Discontinue Levemir, continue sliding scale insulin coverage with meals and at bedtime.. 4. Coronary artery disease: continue aspirin, statin and beta nancy hold Plavix. 5. Hypothyroidism: Continue levothyroxine DVT prophylaxis: SCDs. GI prophylaxis: PPI VS, I&O, 24H, Fishbone Vital Signs/I&O Vital Signs Date Time Temp Pulse Resp B/P (MAP) Pulse Ox O2 Delivery O2 Flow Rate FiO2 05/01/19 18:35 97.7 71 18 100/48 95 Room Air I&O- Last 24 Hours up to 6 AM 3/24/20 06:00 Intake Total 500 ml Output Total 2050 ml Balance -1550 ml Laboratory Data 24H LABS Laboratory Tests 2 04/30/19 20:07: Bedside Glucose (Misc Panel) 95 05/01/19 06:33: Nucleated Red Blood Cells % (auto) 0.0, Anion Gap 8, Glomerular Filtration Rate 12.1L, Calcium Level 7.3L, Total Bilirubin 0.3, Aspartate Amino Transf (AST/SGOT) 14, Alanine Aminotransferase (ALT/SGPT) 18, Alkaline Phosphatase 88, Total Protein 5.7L, Albumin 2.6L, Albumin/Globulin Ratio 0.84L 05/01/19 11:22: Bedside Glucose (Misc Panel) 71L 05/01/19 16:16: Bedside Glucose (Misc Panel) 93 CBC/BMP Laboratory Tests 04/30/19 21:48 05/01/19 03:24 05/01/19 06:33 KORI EVANS MD May 01, 2019 19:24
[2019-05-02] VITALS (14 sets, daily range): BP systolic 101–133; BP diastolic 48–86; O2SAT 97
[2019-05-02] MEDS: AZTREONAM 0.5 GM in D5W 50 ML IV SCH ×2 (01:26→17:39)
[2019-05-02] MEDS: metroNIDAZOLE 500 MG in IV 1 EA IV SCH ×2 (03:38→18:27)
[2019-05-02] MEDS: VITAMIN D 1,000 INTERNATIONAL UNITS TABLET PO SCH (06:02)
[2019-05-02] MEDS: ASPIRIN 81 MG ENTERIC TAB PO SCH (06:02)
[2019-05-02] MEDS: OMEPRAZOLE 20 MG CAP PO SCH (06:02)
[2019-05-02] MEDS: METOPROLOL TART 50 MG TAB PO SCH ×2 (06:02→20:21)
[2019-05-02] MEDS: LEVOTHYROXINE 112MCG TABLET (0.112MG) PO SCH (06:03)
[2019-05-02] MEDS: ATORVASTATIN 20 MG TAB PO SCH (06:03)
[2019-05-02 06:13] LABS: HEMATOCRIT 24.1 % (36.0-47.0); HEMOGLOBIN 7.8 g/dl (12.0-15.5); MEAN CORPUSCULAR HEMOGLOBIN 31.7 pg (27.0-33.0); MEAN CORPUSCULAR HGB CONC 32.4 g/dl (32.0-36.5); PLATELET COUNT, AUTOMATED 276 10^3/uL (150-450); RED BLOOD COUNT 2.46 10^6/uL (4.00-5.40); WHITE BLOOD COUNT 13.6 10^3/uL (4.0-10.0)
[2019-05-02 06:37] LABS: ALBUMIN 2.6 GM/DL (3.2-5.2); BILIRUBIN,TOTAL 0.3 MG/DL (0.2-1.0); CALCIUM LEVEL 7.4 MG/DL (8.8-10.2); CREATININE FOR GFR 4.65 MG/DL (0.55-1.30); GLOMERULAR FILTRATION RATE 9.9 (>45); POTASSIUM SERUM 4.4 MEQ/L (3.5-5.1); TOTAL PROTEIN 5.8 GM/DL (6.4-8.2)
[2019-05-02] MEDS: SYMBICORT 160/4.5MCG INHALER 6GM INH SCH ×2 (07:23→20:36)
[2019-05-02] MEDS: HumaLOG INSULIN (NovoLOG) PER UNIT SC SCH ×4 (07:30→21:00)
[2019-05-02] MEDS: NYSTATIN 100,000 UNITS/GM TOPICAL PWD 15 GM TOP SCH (07:57)
[2019-05-02] MEDS ORDERED: IRON SUCROSE 100MG 5ML VIAL (J1756 PER 1MG) IV SCH (10:00)
[2019-05-02] MEDS ORDERED: HEPARIN 1,000 UNITS/ML 10ML VIAL (FOR RADIOLOGY& DIALYSIS ONLY)(J1644-10) XX ONE (10:15)
[2019-05-02] MEDS ORDERED: GLUCAGON FOR INJ 1 MG VIAL (J1610) SC PRN (10:45)
[2019-05-02] MEDS ORDERED: DEXTROSE 50% 50 ML SYRINGE IV PRN (10:45)
--- NOTE | 2019-05-02 11:07 | IPN ---
DATE OF SERVICE: 05/02/2019 SUBJECTIVE: The patient was seen and examined at the bedside today morning. She is afebrile, hemodynamically stable. She reports that she is still having some blood in the stools, but the frequency is decreasing. She feels better today as compared with yesterday and abdominal pain is better. She is also having more appetite and able to keep some liquid diet down. Today is day of dialysis as well. Her hemoglobin has dropped to 7.8 and she will need some blood transfusion with dialysis today. OBJECTIVE: Vital Signs: Temperature is 97.9 degrees Fahrenheit, blood pressure 112/50, pulse is 70, respiratory rate of 18, saturating 97% on room air. Intake and Output. There is no urine output recorded. She had one void since overnight. Weight in the bed scale is 88.5 kg. PHYSICAL EXAMINATION: General: The patient is awake, alert, oriented x3, laying in bed, in no apparent distress. Head and Neck Exam: Extraocular muscles intact. Pupils equally round and reactive to light. Mucous membranes are moist. Neck is supple. There is no jugular venous distention (JVD). Cardiovascular: S1, S2, regular rate. No edema of the bilateral lower extremities. Respiratory: Chest is clear to auscultation bilaterally. Bilateral equal air entry. No rales or rhonchi. Abdomen: Soft, obese, positive bowel sounds. Nontender at this time. Genitourinary: Bladder is not palpable. Musculoskeletal: No clubbing or cyanosis. Pulses are 2+. AV Kindred: He has a right upper arm AV fistula with positive thrill and bruit and a left internal jugular (IJ) tunneled dialysis catheter. INFORMATION TECH: No focal deficit. Power is 5/5 in all extremities. LAB REVIEW: CBC showed WBC 13.6, hemoglobin 7.8, platelets of 176. BMP showed sodium 136, potassium 4.4, chloride 103, bicarb 23, BUN 61, creatinine is 4.6. CURRENT INPATIENT MEDICATIONS: The patient's medications were all reviewed by me. She was started on Azactam and Flagyl yesterday. Her aspirin has been stopped today. She continues to be on IV Venofer and 2 units of blood have been ordered today to be given with dialysis. ASSESSMENT/PLAN: 1. End-stage renal disease. The patient will be dialyzed today in the afternoon. Ultrafiltration goal will be 1.5 to 2 liters during dialysis. 2. Anemia secondary to end-stage renal disease and GI bleed. The patient is going to get 2 units of PRBC transfusion during dialysis and she is also getting Venofer with dialysis along with Aranesp. 3. Lower GI bleed. The patient is pending evaluation by GI. Antiplatelet medications have been on hold. She is being empirically covered with Azactam and Flagyl for possible diverticulitis. 4. Chronic diastolic congestive heart failure. Volume status is optimal and it is being managed with dialysis. 5. Coronary artery disease without angina pectoris. The patient's aspirin and Plavix have been on hold. She continues to be on Lipitor and metoprolol.
[2019-05-02] MEDS ORDERED: MOM 30ML SUSPENSION UDC PO ONE (17:00)
[2019-05-02] MEDS: ACETAMINOPHEN 500 MG TAB PO PRN (20:21)
[2019-05-02] MEDS: CAPSAICIN 0.025% CR 60 GM TOP PRN (20:22)
--- NOTE | 2019-05-02 21:16 | IPNPDOC ---
Date Seen The patient was seen on 05/02/19. Progress Note SUBJECTIVE: 68-year-old female with past medical history of end-stage renal disease, diabetes mellitus, coronary artery disease and GERD who was admitted for missing 2 of her dialysis sessions and presenting with volume overload requiring emergent hemodialysis. Upon completion of hemodialysis. Patient developed bright red blood per rectum, which has persisted since then and had multiple episodes overnight and one episode in the morning today. Patient denies any prior history of GI bleed, currently on aspirin and Plavix for coronary artery disease/peripheral artery disease. Patient is otherwise asymptomatic, denies any shortness of breath, chest pain, nausea, vomiting or headache. She does report mild diffuse abdominal pain. 05/02/19 Had multiple bloody BMs yesterday, starting improving overnight with decreased amount of blood with continued improvement today as she reports having one BM in the morning with small amount of blood mixed in. She is otherwise asymptomatic, received 1 unit PRBC yesterday with progressive decline in hemoglobin today. 10 point review of system is negative except for above PHYSICAL EXAMINATION: VITAL SIGNS: Please see below. GENERAL: Morbidly Obese HEENT: Normocephalic, atraumatic, moist mucous membranes NECK: Supple CARDIOVASCULAR EXAMINATION: S1, S2, no murmurs RESPIRATORY EXAMINATION: Scattered rhonchi, no wheezing ABDOMINAL EXAMINATION: Soft, mild diffuse tenderness, nondistended, positive bowel sounds EXTREMITIES: Range of motion intact SKIN: No rash NEUROLOGICAL EXAMINATION: Alert and oriented 3, no focal deficits PSYCHIATRIC EXAMINATION: Calm and cooperative LABORATORY DATA, IMAGING STUDIES, MICROBIOLOGY: Please see below. ASSESSMENT AND PLAN: 68-year-old female with multiple medical comorbidities admitted for rectal bleeding and missing outpatient with dialysis. PROBLEMS: 1. GI bleed: Will hold aspirin/Plavix, s/p 1 unit PRBC yesterday, H&H downtrending, transfuse 2 unit of packed red blood cells today during HD, GI eval appreciated, tentatively plan for endoscopy on Tuesday, empiric antibiotics. 2. End-stage renal disease: HD today, management as per nephrology. 3. Diabetes mellitus: continue sliding scale insulin coverage with meals and at bedtime.. 4. Coronary artery disease: continue statin and beta nancy holding aspirin/Plavix. 5. Hypothyroidism: Continue levothyroxine DVT prophylaxis: SCDs. GI prophylaxis: PPI VS, I&O, 24H, Fishbone Vital Signs/I&O Vital Signs Date Time Temp Pulse Resp B/P (MAP) Pulse Ox O2 Delivery O2 Flow Rate FiO2 05/02/19 20:21 76 120/59 05/02/19 16:27 97.8 17 92 Nasal Cannula 2.0 I&O- Last 24 Hours up to 6 AM 05/02/19 06:00 Intake Total 2120 ml Output Total 0 ml Balance 2120 ml Laboratory Data 24H LABS Laboratory Tests 2 05/02/19 05:50: Nucleated Red Blood Cells % (auto) 0.1H, Anion Gap 10, Glomerular Filtration Rate 9.9L, Calcium Level 7.4L, Total Bilirubin 0.3, Aspartate Amino Transf (AST/SGOT) 18, Alanine Aminotransferase (ALT/SGPT) 17, Alkaline Phosphatase 86, Total Protein 5.8L, Albumin 2.6L, Albumin/Globulin Ratio 0.81L 05/02/19 17:32: Bedside Glucose (Misc Panel) 97 05/02/19 20:30: Bedside Glucose (Misc Panel) 239H CBC/BMP Laboratory Tests 05/02/19 05:50 KORI EVANS MD May 02, 2019 21:16
[2019-05-02] MEDS: ONDANSETRON 4 MG TAB (S0181) PO PRN (23:03)
[2019-05-03] MEDS: metroNIDAZOLE 500 MG in IV 1 EA IV SCH ×3 (01:51→18:03)
[2019-05-03 04:09] VITALS: O2SAT 100
[2019-05-03] MEDS: AZTREONAM 0.5 GM in D5W 50 ML IV SCH ×2 (05:12→17:05)
[2019-05-03 06:00] VITALS: BP 116/56
[2019-05-03] MEDS: LEVOTHYROXINE 112MCG TABLET (0.112MG) PO SCH (06:05)
[2019-05-03 06:16] LABS: HEMATOCRIT 33.1 % (36.0-47.0); MEAN CORPUSCULAR VOLUME 94.3 fl (80.0-96.0); PLATELET COUNT, AUTOMATED 241 10^3/uL (150-450); RED BLOOD COUNT 3.51 10^6/uL (4.00-5.40); WHITE BLOOD COUNT 14.1 10^3/uL (4.0-10.0)
[2019-05-03 06:25] LABS: HEMOGLOBIN 11.6 g/dl (12.0-15.5)
[2019-05-03] MEDS: SYMBICORT 160/4.5MCG INHALER 6GM INH SCH ×2 (07:29→20:21)
[2019-05-03] MEDS ORDERED: MOM 30ML SUSPENSION UDC PO ONE (08:00)
[2019-05-03] MEDS: METOPROLOL TART 50 MG TAB PO SCH ×2 (08:15→21:08)
[2019-05-03] MEDS: OMEPRAZOLE 20 MG CAP PO SCH (08:15)
[2019-05-03] MEDS: VITAMIN D 1,000 INTERNATIONAL UNITS TABLET PO SCH (08:15)
[2019-05-03] MEDS: NYSTATIN 100,000 UNITS/GM TOPICAL PWD 15 GM TOP SCH (08:15)
[2019-05-03] MEDS: ATORVASTATIN 20 MG TAB PO SCH (08:15)
[2019-05-03] MEDS: HumaLOG INSULIN (NovoLOG) PER UNIT SC SCH ×4 (08:16→21:08)
--- NOTE | 2019-05-03 11:18 | IPN ---
DATE OF SERVICE: 05/03/2019 SUBJECTIVE: The patient was seen and examined at the bedside today morning. She is afebrile, hemodynamically stable. She reports she is still having some blood mixed with the stools. She was given packed red blood cell (PRBC) transfusion unit yesterday. Hemoglobin has nicely improved to 11.6, but the patient reports that she is getting the colonoscopy prep done today and she will have the colonoscopy done tomorrow. She was also dialyzed yesterday. She tolerated the hemodialysis procedure well. OBJECTIVE: Vital Signs: Temperature is 97.4 degrees Fahrenheit, blood pressure 116/56, pulse is 64, respiratory rate of 18, saturating 99% on nasal cannula at 2 liters. Intake and Output: There is no urine output recorded. Ultrafiltration with hemodialysis was 2 liters. Weight in the bed scale is 89.3 kg. PHYSICAL EXAMINATION: General: The patient is awake, alert, oriented x3, sitting up in the sofa, in no apparent distress. Head and Neck Exam: Extraocular muscles intact. Pupils equally round and reactive to light. Mucous membranes are moist. Neck is supple. There is no jugular venous distention (JVD). Cardiovascular: S1, S2, regular rate. No edema of the bilateral lower extremities. Respiratory: Chest is clear to auscultation bilaterally. Bilateral equal air entry. No rales or rhonchi. Abdomen: Soft. Positive bowel sounds. Nontender. No organomegaly. Musculoskeletal: No clubbing or cyanosis. Pulses are 2+. PARALEGAL ASSISTANT: No focal deficit. Power is 5/5 in all extremities. LAB REVIEW: CBC showed a WBC of 14.1, hemoglobin 11.6, platelets 241. BMP showed sodium 136, potassium 4.4, chloride 103, bicarb 23, BUN 61, creatinine is 4.6. CURRENT INPATIENT MEDICATIONS: The patient's medications were all reviewed by me. She continues to be on aztreonam and Flagyl. No other change in the medications today as compared with yesterday. ASSESSMENT/PLAN: 1. End-stage renal disease. The patient was dialyzed yesterday. Volume status is optimal. Next hemodialysis will be done tomorrow. 2. Anemia secondary to end-stage renal disease and lower GI bleed. The patient got two PRBC transfusion yesterday and hemoglobin level is optimal. Continue Aranesp and Venofer. 3. Bright red blood per rectum. The patient is getting the colonoscopy prep done today and she is going to have colonoscopy tomorrow. 4. Chronic diastolic congestive heart failure. Volume status is optimal.
[2019-05-03 14:00] VITALS: BP 111/61
[2019-05-03] MEDS ORDERED: POLYETHYLENE GLYCOL (MIRALAX) 238GM BOTTLE PO ONE (15:00)
--- NOTE | 2019-05-03 18:26 | IPNPDOC ---
Date Seen The patient was seen on 05/03/19. Progress Note SUBJECTIVE: 68-year-old female with past medical history of end-stage renal disease, diabetes mellitus, coronary artery disease and GERD who was admitted for missing 2 of her dialysis sessions and presenting with volume overload requiring emergent hemodialysis. Upon completion of hemodialysis. Patient developed bright red blood per rectum, which has persisted since then and had multiple episodes overnight and one episode in the morning today. Patient denies any prior history of GI bleed, currently on aspirin and Plavix for coronary artery disease/peripheral artery disease. Patient is otherwise asymptomatic, denies any shortness of breath, chest pain, nausea, vomiting or headache. She does report mild diffuse abdominal pain. 05/02/19 Had multiple bloody BMs yesterday, starting improving overnight with decreased amount of blood with continued improvement today as she reports having one BM in the morning with small amount of blood mixed in. She is otherwise asymptomatic, received 1 unit PRBC yesterday with progressive decline in hemoglobin today. 05/03/19 Patient seen in the morning, comfortable, continues to have left his bowel movements, significant improvement in hemoglobin after receiving 2 units of packed cells yesterday, no new complaints. 10 point review of system is negative except for above PHYSICAL EXAMINATION: VITAL SIGNS: Please see below. GENERAL: Morbidly Obese HEENT: Normocephalic, atraumatic, moist mucous membranes NECK: Supple CARDIOVASCULAR EXAMINATION: S1, S2, no murmurs RESPIRATORY EXAMINATION: Scattered rhonchi, no wheezing ABDOMINAL EXAMINATION: Soft, no tenderness, nondistended, positive bowel sounds EXTREMITIES: Range of motion intact SKIN: No rash NEUROLOGICAL EXAMINATION: Alert and oriented 3, no focal deficits PSYCHIATRIC EXAMINATION: Calm and cooperative LABORATORY DATA, IMAGING STUDIES, MICROBIOLOGY: Please see below. ASSESSMENT AND PLAN: 68-year-old female with multiple medical comorbidities admitted for rectal bleeding and missing outpatient with dialysis. PROBLEMS: 1. GI bleed: Will hold aspirin/Plavix, s/p 3 units PRBC total, hemoglobin is significantly improved, scheduled for colonoscopy tomorrow, empiric antibiotics. 2. End-stage renal disease: Underwent hemodialysis yesterday, management as per nephrology. 3. Diabetes mellitus: continue sliding scale insulin coverage with meals and at bedtime.. 4. Coronary artery disease: continue statin and beta nancy holding aspirin/Plavix. 5. Hypothyroidism: Continue levothyroxine DVT prophylaxis: SCDs. GI prophylaxis: PPI VS, I&O, 24H, Fishbone Vital Signs/I&O Vital Signs Date Time Temp Pulse Resp B/P (MAP) Pulse Ox O2 Delivery O2 Flow Rate FiO2 05/03/19 14:00 97.7 68 18 111/61 (78) 97 Room Air 05/03/19 06:00 2.0 I&O- Last 24 Hours up to 6 AM 05/03/19 06:00 Intake Total 2250 ml Output Total 2000 ml Balance 250 ml Laboratory Data 24H LABS Laboratory Tests 2 05/02/19 20:30: Bedside Glucose (Misc Panel) 239H 05/03/19 06:00: Nucleated Red Blood Cells % (auto) 0.4H 05/03/19 06:08: Bedside Glucose (Misc Panel) 157H 05/03/19 11:54: Bedside Glucose (Misc Panel) 183H 05/03/19 16:38: Bedside Glucose (Misc Panel) 233H CBC/BMP Laboratory Tests 05/03/19 06:00 KORI EVANS MD May 03, 2019 18:26
[2019-05-03 22:00] VITALS: BP 119/58; O2SAT 94
[2019-05-04] MEDS: metroNIDAZOLE 500 MG in IV 1 EA IV SCH ×3 (01:33→20:15)
[2019-05-04] MEDS ORDERED: POLYETHYLENE GLYCOL (MIRALAX) 238GM BOTTLE PO ONE (05:00)
[2019-05-04] MEDS: AZTREONAM 0.5 GM in D5W 50 ML IV SCH ×2 (05:01→18:30)
[2019-05-04] MEDS: METOPROLOL TART 50 MG TAB PO SCH ×2 (05:48→20:15)
[2019-05-04] MEDS: LEVOTHYROXINE 112MCG TABLET (0.112MG) PO SCH (05:48)
[2019-05-04] MEDS: ATORVASTATIN 20 MG TAB PO SCH (05:48)
[2019-05-04] MEDS: VITAMIN D 1,000 INTERNATIONAL UNITS TABLET PO SCH (05:48)
[2019-05-04] MEDS: OMEPRAZOLE 20 MG CAP PO SCH (05:49)
[2019-05-04 06:00] VITALS: BP 111/63
[2019-05-04] MEDS: SYMBICORT 160/4.5MCG INHALER 6GM INH SCH ×2 (07:09→20:05)
[2019-05-04] MEDS: HumaLOG INSULIN (NovoLOG) PER UNIT SC SCH ×4 (08:34→20:09)
[2019-05-04] MEDS: NYSTATIN 100,000 UNITS/GM TOPICAL PWD 15 GM TOP SCH (08:34)
[2019-05-04 10:21] VITALS: O2SAT 98
[2019-05-04 14:00] VITALS: BP 112/63
[2019-05-04] MEDS ORDERED: propofoL 200 MG/20 ML VIAL As Ordered ONE (16:25)
[2019-05-04] MEDS ORDERED: LIDOCAINE 2% INJ 100 MG/5 ML SDV (FOR ANES.) As Ordered ONE (16:25)
[2019-05-04] MEDS ORDERED: GLUCAGON FOR INJ 1 MG VIAL (J1610) As Ordered ONE (17:14)
--- NOTE | 2019-05-04 17:42 | ROOR ---
Patient Name: Barbie Duran Procedure Date: 05/04/2019 4:32 PM Date of : 1950 Age: 68 Gender: Female Note Status: Finalized Procedure: Colonoscopy Indications: Hematochezia, Acute post hemorrhagic anemia Providers: Billy KAPLAN MD Referring MD: 2. Inpatient 2. Inpatient Requesting Provider: Medicines: Monitored Anesthesia Care Complications: No immediate complications. Procedure: Pre-Anesthesia Assessment: - The heart rate, respiratory rate, oxygen saturations, blood pressure, adequacy of pulmonary ventilation, and response to care were monitored throughout the procedure. The Colonoscope was introduced through the anus and advanced to the cecum, identified by appendiceal orifice and ileocecal valve. The colonoscopy was somewhat difficult due to multiple diverticula in the colon, inadequate bowel prep and a tortuous colon. The patient tolerated the procedure well. The quality of the bowel preparation was fair. Findings: The perianal and digital rectal examinations were normal. A single (solitary) fifteen mm ulcer was found in the mid ascending colon. Stigmata of recent bleeding were present. Biopsies were taken with a cold forceps for histology. Multiple small and large-mouthed diverticula were found in the sigmoid colon, descending colon, transverse colon and ascending colon. There was no evidence of diverticular bleeding. Small Internal Hemorrhoids. Impression: - Preparation of the colon was fair. - A single (solitary) ulcer in the mid ascending colon. Biopsied. - Severe diverticulosis in the sigmoid colon, in the descending colon, in the transverse colon and in the ascending colon. There was no evidence of diverticular bleeding. - Small Internal Hemorrhoids. (- I suspect acute bleeding episode was likely form ulcer site. There is presently no bleeding, and the site appears to be healing/granulation tissue). Recommendation: - Await pathology results. - Advance diet as tolerated. - Telephone my office for pathology results in 2 weeks. - Please assess need for plavix in this patient. Would prefer to hold plavix another 4-5 days if at all possible. - Return to primary care physician as previously scheduled. - If the pathology report is benign, then repeat colonoscopy to check healing in 6 months. Billy Kaplan MD Billy KAPLAN MD 05/04/2019 5:42:50 PM Electronically signed by Billy KAPLAN MD Number of Addenda: 0 Note Initiated On: 05/04/2019 4:32 PM Estimated Blood Loss: Estimated blood loss: none.
[2019-05-04] MEDS ORDERED: LR 1,000 ML IV SCH (17:45)
--- NOTE | 2019-05-04 18:20 | IPNPDOC ---
Date Seen The patient was seen on 05/04/19. Progress Note SUBJECTIVE: 68-year-old female with past medical history of end-stage renal disease, diabetes mellitus, coronary artery disease and GERD who was admitted for missing 2 of her dialysis sessions and presenting with volume overload requiring emergent hemodialysis. Upon completion of hemodialysis. Patient developed bright red blood per rectum, which has persisted since then and had multiple episodes overnight and one episode in the morning today. Patient denies any prior history of GI bleed, currently on aspirin and Plavix for coronary artery disease/peripheral artery disease. Patient is otherwise asymptomatic, denies any shortness of breath, chest pain, nausea, vomiting or headache. She does report mild diffuse abdominal pain. 05/02/19 Had multiple bloody BMs yesterday, starting improving overnight with decreased amount of blood with continued improvement today as she reports having one BM in the morning with small amount of blood mixed in. She is otherwise asymptomatic, received 1 unit PRBC yesterday with progressive decline in hemoglobin today. 05/03/19 Patient seen in the morning, comfortable, continues to have left his bowel movements, significant improvement in hemoglobin after receiving 2 units of packed cells yesterday, no new complaints. 05/04/19 Underwent bowel prep for colonoscopy overnight, comfortable in chair, no complaints at this time, scheduled for colonoscopy later today. 10 point review of system is negative except for above PHYSICAL EXAMINATION: VITAL SIGNS: Please see below. GENERAL: Morbidly Obese HEENT: Normocephalic, atraumatic, moist mucous membranes NECK: Supple CARDIOVASCULAR EXAMINATION: S1, S2, no murmurs RESPIRATORY EXAMINATION: Scattered rhonchi, no wheezing ABDOMINAL EXAMINATION: Soft, no tenderness, nondistended, positive bowel sounds EXTREMITIES: Range of motion intact SKIN: No rash NEUROLOGICAL EXAMINATION: Alert and oriented 3, no focal deficits PSYCHIATRIC EXAMINATION: Calm and cooperative LABORATORY DATA, IMAGING STUDIES, MICROBIOLOGY: Please see below. ASSESSMENT AND PLAN: 68-year-old female with multiple medical comorbidities admitted for rectal bleeding and missing outpatient with dialysis. PROBLEMS: 1. GI bleed: Holding aspirin/Plavix, s/p 3 units PRBC total, H&H stable, scheduled for colonoscopy later today, empiric antibiotics. 2. End-stage renal disease: Continue Aranesp, hemodialysis as per nephrology. 3. Diabetes mellitus: continue sliding scale insulin coverage with meals and at bedtime.. 4. Coronary artery disease: continue statin and beta nancy holding aspirin/Plavix. 5. Hypothyroidism: Continue levothyroxine DVT prophylaxis: SCDs. GI prophylaxis: PPI VS, I&O, 24H, Fishbone Vital Signs/I&O Vital Signs Date Time Temp Pulse Resp B/P (MAP) Pulse Ox O2 Delivery O2 Flow Rate FiO2 05/04/19 17:40 62 18 124/60 (81) 98 Room Air 05/04/19 17:35 97.5 05/04/19 10:21 2.0 I&O- Last 24 Hours up to 6 AM 05/04/19 06:00 Intake Total 2580 ml Balance 2580 ml Laboratory Data 24H LABS Laboratory Tests 2 05/03/19 20:28: Bedside Glucose (Misc Panel) 253H 05/04/19 08:04: Bedside Glucose (Misc Panel) 210H 05/04/19 11:32: Bedside Glucose (Misc Panel) 124H 05/04/19 16:46: Bedside Glucose (Misc Panel) 102 KORI EVANS MD May 04, 2019 18:20
[2019-05-04 18:27] VITALS: BP 121/51
--- NOTE | 2019-05-04 20:58 | IPN ---
DATE: 05/04/2019 SUBJECTIVE The patient was seen and examined the bedside today morning. She is afebrile, hemodynamically stable. She got the colonoscopy prep done overnight. She is nothing by mouth (npo) at this time for colonoscopy in the afternoon. Today's is the patient's regular day of dialysis. However dialysis is being postponed because of colonoscopy today. She denies any more bleeding per rectum. OBJECTIVE Vital signs: Temperature is 97.4 degrees Fahrenheit, blood pressure 121/51, pulse is 88, respiratory rate of 20, saturating 97% on room air. Intake and output: There is no urine output recorded. Weight on the bed scale is 90.7 kg. PHYSICAL EXAMINATION General: The patient is awake, alert, oriented times three, laying in bed in no apparent distress. Head and neck examination: Extraocular muscles intact. Pupils equally round and reactive to light. Mucous membranes are moist. Neck is supple. There is no JVD. Cardiovascular: S1, S2, regular rate. No edema of the bilateral lower extremities. Respiratory: Chest is clear to auscultation bilaterally. Bilateral equal air entry. No rales or rhonchi. Abdomen: Soft, positive bowel sounds. Nontender. No organomegaly. Musculoskeletal: No clubbing or cyanosis, pulse 2+. FINANCIAL INVESTMENT MANAGER: No focal deficit. Power is 5/5 in all extremities. LAB REVIEW: CBC showed a WBC of 14.1 and hemoglobin 11.6 and that was from yesterday. There is no BMP available today. CURRENT INPATIENT MEDICATIONS The patient's medications were all reviewed by myself. No significant change in the medications today as compared with yesterday. ASSESSMENT/PLAN 1. End-stage renal disease. The patient is cleaned for colonoscopy. She is nothing by mouth. She will not be dialyzed today. She will be dialyzed tomorrow morning. 2. Anemia secondary to GI bleed and end-stage renal disease. The patient continues to be on Aranesp and Venofer. She denies any more active complaints. She is going for colonoscopy today. 3. Chronic diastolic congestive heart failure. Volume status is optimal. Fluid is managed with dialysis. 4. Coronary artery disease. Beta-nancy and statins continue. Aspirin and Plavix was stopped because of GI bleeding.
[2019-05-05] MEDS: metroNIDAZOLE 500 MG in IV 1 EA IV SCH ×2 (02:06→10:00)
[2019-05-05] MEDS: LEVOTHYROXINE 112MCG TABLET (0.112MG) PO SCH (05:34)
[2019-05-05] MEDS: AZTREONAM 0.5 GM in D5W 50 ML IV SCH (05:34)
[2019-05-05 06:00] VITALS: BP 131/58
[2019-05-05 06:14] LABS: BASO # 0.1 10^3/uL (0.0-0.2); BASO % 0.4 % (0.0-1.0); EOS # 0.2 10^3/uL (0.0-0.5); EOS % 1.2 % (0.0-3.0); HEMATOCRIT 33.1 % (36.0-47.0); HEMOGLOBIN 11.1 g/dl (12.0-15.5); LYMPH # 1.1 10^3/uL (1.5-5.0); LYMPH % 6.7 % (24.0-44.0); MEAN CORPUSCULAR HEMOGLOBIN 32.3 pg (27.0-33.0); MEAN CORPUSCULAR HGB CONC 33.5 g/dl (32.0-36.5); MEAN CORPUSCULAR VOLUME 96.2 fl (80.0-96.0); MONO # 0.8 10^3/uL (0.0-0.8); MONO % 5.3 % (0.0-5.0); NEUTROPHILS # 13.4 10^3/uL (1.5-8.5); NEUTROPHILS % 85.5 % (36.0-66.0); PLATELET COUNT, AUTOMATED 229 10^3/uL (150-450); RED BLOOD COUNT 3.44 10^6/uL (4.00-5.40); WHITE BLOOD COUNT 15.7 10^3/uL (4.0-10.0)
[2019-05-05] MEDS: VITAMIN D 1,000 INTERNATIONAL UNITS TABLET PO SCH (06:31)
[2019-05-05] MEDS: ATORVASTATIN 20 MG TAB PO SCH (06:31)
[2019-05-05] MEDS: OMEPRAZOLE 20 MG CAP PO SCH (06:31)
[2019-05-05 06:32] VITALS: BP 131/58
[2019-05-05] MEDS: METOPROLOL TART 50 MG TAB PO SCH (06:32)
[2019-05-05 06:44] LABS: ALBUMIN 2.6 GM/DL (3.2-5.2); CALCIUM LEVEL 7.5 MG/DL (8.8-10.2); CREATININE FOR GFR 3.59 MG/DL (0.55-1.30); GLOMERULAR FILTRATION RATE 13.4 (>45); PHOSPHORUS LEVEL 3.8 MG/DL (2.5-4.9); POTASSIUM SERUM 3.4 MEQ/L (3.5-5.1)
[2019-05-05] MEDS: CAPSAICIN 0.025% CR 60 GM TOP PRN (07:36)
[2019-05-05] MEDS: NYSTATIN 100,000 UNITS/GM TOPICAL PWD 15 GM TOP SCH (07:36)
[2019-05-05] MEDS: HumaLOG INSULIN (NovoLOG) PER UNIT SC SCH ×2 (07:36→12:59)
[2019-05-05] MEDS: ACETAMINOPHEN 500 MG TAB PO PRN (07:37)
[2019-05-05] MEDS: SYMBICORT 160/4.5MCG INHALER 6GM INH SCH (07:40)
[2019-05-05] MEDS ORDERED: HEPARIN 1,000 UNITS/ML 10ML VIAL (FOR RADIOLOGY& DIALYSIS ONLY)(J1644-10) XX ONE (10:45)
[2019-05-05 14:00] VITALS: BP 128/58
--- NOTE | 2019-05-05 18:05 | IPN ---
DATE: 05/05/2019 SUBJECTIVE: The patient was seen and examined at the bedside today morning during hemodialysis procedure. She is tolerating the hemodialysis procedure well. She denies any more bleeding per rectum. Her hemoglobin level is stable. OBJECTIVE: Vital signs: Temperature is 97.8 degrees Fahrenheit, blood pressure 128/58, pulse is 78, respiratory of 17, saturating 96 on room air. Intake and output: There is no urine output recorded. Weight in the bed scale is 90.5 kg. PHYSICAL EXAMINATION: GENERAL: The patient is awake, alert, oriented times three, lying in bed getting hemodialysis done. HEAD AND NECK: Extraocular muscles intact. Pupils equally round and reactive to light. Mucous membranes are moist. Neck is supple. There is no jugular venous distention (JVD). CARDIOVASCULAR: S1, S2, regular rate. No edema of the bilateral lower extremities. RESPIRATORY: Chest is clear to auscultation bilaterally. Bilateral equal air entry. No rales or rhonchi. ABDOMEN: Soft. Positive bowel sounds. Nontender. No organomegaly. MUSCULOSKELETAL: No clubbing or cyanosis. Pulses are 2+. CENTRAL NERVOUS SYSTEM: No focal deficit. Power is 5/5 in all extremities. LABORATORY REVIEW: CBC showed WBC 15.7, hemoglobin is 11.1, platelets are 129. BMP showed sodium 134, potassium 3.4, chloride 102, bicarbonate 24, BUN 30, creatinine is 3.5. CURRENT INPATIENT MEDICATIONS: The patient's medications were all reviewed by myself. There is no significant change in the medications today as compared with yesterday. ASSESSMENT AND PLAN: 1. End-stage renal disease. The patient is being dialyzed today. Ultrafiltration goal will be 2 liters as tolerated by her blood pressure. She will resume her outpatient dialysis schedule when she is discharged from the hospital. 2. Anemia secondary to gastrointestinal (GI) bleed. The patient is status post Venofer, Aranesp, and packed red blood cells (PRBC) transfusion. Hemoglobin is stable. 3. Lower GI bleed. The patient is status post colonoscopy, which showed a healing ulcer in the ascending colon. Antiplatelet medications are on hold. Biopsy result is pending. 4. Coronary artery disease. Continue the beta nancy and statin at this time. Aspirin will be restarted after about 2 weeks. DISPOSITION: The patient is optimized from nephrology standpoint to be discharged home after dialysis today.
--- NOTE | 2019-05-05 21:53 | DS.PDOC ---
Discharge Summary General Date of Admission Apr 29, 2019 at 16:22 Date of Discharge 05/05/19 Attending Physician: KORI EVANS MD Discharge Summary PROCEDURES PERFORMED DURING STAY: Colonoscopy ADMITTING DIAGNOSES: 1. GI bleed, colonic ulcer, ESRD DISCHARGE DIAGNOSES: 1. GI bleed, colonic ulcer, ESRD COMPLICATIONS/CHIEF COMPLAINT: Shortness Of Breath. HISTORY OF PRESENT ILLNESS: 68 y.o female w/ multiple medical comorbidities was initially admitted for missing 2 HD sessions with fluid overload. She underwent emergent HD with significant clinical improvement and return to baseline. She then developed rectal bleeding, Aspirin/Plavix held, evaluated by GI, underwent colonoscopy which showed a non-bleeding ulcer in the colon. She received a total of 3 units of PRBC, bleeding resolved and H/H remained stable for >48 hours. She was advised to continue holding Plavix for 5 days and follow up w/ her PCP after to discuss restarting the Plavix. She is clinically and hemodynamically stable for discharge at this time. HOSPITAL COURSE: As above DISCHARGE MEDICATIONS: Please see below. ALLERGIES: Please see below. PHYSICAL EXAMINATION: VITAL SIGNS: Please see below. GENERAL: Morbidly Obese HEENT: Normocephalic, atraumatic, moist mucous membranes NECK: Supple CARDIOVASCULAR EXAMINATION: S1, S2, no murmurs RESPIRATORY EXAMINATION: Scattered rhonchi, no wheezing ABDOMINAL EXAMINATION: Soft, no tenderness, nondistended, positive bowel sounds EXTREMITIES: Range of motion intact SKIN: No rash NEUROLOGICAL EXAMINATION: Alert and oriented 3, no focal deficits PSYCHIATRIC EXAMINATION: Calm and cooperative LABORATORY DATA: Please see below. PROGNOSIS: Fair ACTIVITY: As tolerated DIET: Cardiac DISCHARGE PLAN: Follow up w/ GI, Nephrology & PCP in 1 week DISPOSITION: 01 Home, Self-Care. DISCHARGE INSTRUCTIONS: 1. As above DISCHARGE CONDITION: Stable TIME SPENT ON DISCHARGE: Greater than 32 minutes. Vital Signs/I&Os Vital Signs Date Time Temp Pulse Resp B/P (MAP) Pulse Ox O2 Delivery O2 Flow Rate FiO2 05/05/19 14:00 97.8 78 17 128/58 (81) 96 Room Air 05/05/19 09:00 2.0 I&O- Last 24 Hours up to 6 AM 05/05/19 06:00 Intake Total 1160 ml Balance 1160 ml Laboratory Data Labs 24H Laboratory Tests 2 05/05/19 05:54: Immature Granulocyte % (Auto) 0.9, Neutrophils (%) (Auto) 85.5H, Lymphocytes (%) (Auto) 6.7L, Monocytes (%) (Auto) 5.3H, Eosinophils (%) (Auto) 1.2, Basophils (%) (Auto) 0.4, Neutrophils # (Auto) 13.4H, Lymphocytes # (Auto) 1.1L, Monocytes # (Auto) 0.8, Eosinophils # (Auto) 0.2, Basophils # (Auto) 0.1, Nucleated Red Blood Cells % (auto) 0.2H, Anion Gap 8, Glomerular Filtration Rate 13.4L, Calcium Level 7.5L, Phosphorus Level 3.8, Albumin 2.6L 05/05/19 12:52: Bedside Glucose (Misc Panel) 150H CBC/BMP Laboratory Tests 05/05/19 05:54 FSBS Laboratory Tests Test 05/05/19 12:52 Range/Units Bedside Glucose (Misc Panel) 150 80-115 MG/DL Discharge Medications Scheduled Aspirin (Aspirin EC) 81 Mg Tab, 81 MG PO DAILY, (Reported) Atorvastatin Calcium (Atorvastatin Calcium) 40 Mg Tab, 40 MG PO DAILY, (Reported) Azelastine HCl (Azelastine HCl) 0.15 % Spr, 1 SPRAY NARES DAILY, (Reported) Budesonide/Formoterol (Symbicort 160-4.5 Mcg Inhaler) 6 Gm Hfa.aer.ad, 2 PUFF INH BID, (Reported) Calcitriol (Calcitriol) 0.25 Mcg Cap, 0.25 MCG PO 3XW, (Reported) RECEIVES AT DIALYIS TUE/TUE/TUE Cholecalciferol (Vitamin D3) (Vitamin D3) 1,000 Unit Tablet, 1,000 UNITS PO DAILY, (Reported) Dulaglutide (Trulicity) 1.5 Mg/0.5 Ml Pen.injctr, 1.5 MG SC QWEEK, (Reported) FRIDAYS Ferrous Sulfate (Iron) 325 Mg Tablet, 325 MG PO DAILY, (Reported) Insulin Glargine,Hum.rec.anlog (Lantus Solostar) 100 Unit/1 Ml Insuln.pen, 10 UNITS SC DAILY, (Reported) Insulin Lispro (Humalog Kwikpen U-100) 100 Unit/1 Ml Insuln.pen, 20 UNITS SC AC, (Reported) Levothyroxine Sodium (Levothyroxine Sodium) 112 Mcg Tab, 112 MCG PO DAILY, (Reported) Metoprolol Tartrate (Metoprolol Tartrate) 50 Mg Tablet, 50 MG PO BID, (Reported) Omeprazole (Omeprazole) 20 Mg Tab, 20 MG PO DAILY, (Reported) Torsemide (Torsemide) 20 Mg Tablet, 40 MG PO 4XWK, (Reported) TAKES ON NON-DIALYSIS DAYS E//TUE/SUN Scheduled PRN Acetaminophen (Acetaminophen) 500 Mg Tablet, 1,000 MG PO Q6H PRN for PAIN, (Reported) Albuterol Sulfate (Ventolin Hfa) 108 Mcg/Act Aer, 2 PUFFS INH QID PRN for SHORTNESS OF BREATH, (Reported) Dextrose (Glucose) 4 Gm Chw, 4 GM PO ASDIRECTED PRN for BLOOD SUGAR < 50, (Reported) Loperamide HCl (Imodium A-D) 2 Mg Tablet, 2 MG PO DAILY PRN for DIARRHEA, (Reported) Nitroglycerin (Nitrostat) 0.4 Mg Subl, 0.4 MG SL Q5MP PRN for CHEST PAIN, (Reported) Allergies Coded Allergies: cephalexin (Verified Allergy, Severe, RASH, DYSPNEA, 01/01/19) gatifloxacin (Verified Allergy, Severe, RASH, DYSPNEA, 01/01/19) tramadol (Verified Allergy, Severe, RASH, DYSPNEA, 01/01/19) chlorhexidine (Verified Allergy, Mild, RASH, 02/23/19) nitrofurantoin (Verified Allergy, Mild, RASH, 01/01/19) Cephalosporins (Verified Allergy, Unknown, 02/23/19) latex (Verified Allergy, Unknown, RED, SWOLLEN, RASH, 01/01/19) sulfamethoxazole (Verified Adverse Reaction, Intermediate, EFFECTS KIDNEY FUNCTION, 01/01/19) trimethoprim (Verified Adverse Reaction, Intermediate, EFFECTS KIDNEY FUNCTION, 01/01/19) KORI EVANS MD May 05, 2019 21:53
== END 2019-05-05 14:17 | disposition home or self-care (01) | DRG 640 ==
LOC: M ED 13:36 → M ED INP 16:22 → ENRESERVTM 17:04 → ENRESERVDT 17:04 → M MSPAV 17:30
PROVIDERS: ADMIT Student in an Organized Health Care Education/Training Program; ATTEND Internal Medicine
PROC: 5A1D70Z Performance of Urinary Filtration, Intermittent, Less than 6 Hours Per Day (ICD-10-PCS; 2019-04-30)
PROC: 30233N1 Transfusion of Nonautologous Red Blood Cells into Peripheral Vein, Percutaneous Approach (ICD-10-PCS; 2019-05-01)
PROC: 0DBK8ZX Excision of Ascending Colon, Via Natural or Artificial Opening Endoscopic, Diagnostic (ICD-10-PCS; principal; 2019-05-04 14:08)
DX: E87.70 Fluid overload, unspecified (principal); N18.6 End stage renal disease; I50.32 Chronic diastolic (congestive) heart failure; Z68.41 Body mass index [BMI] 40.0-44.9, adult; K92.2 Gastrointestinal hemorrhage, unspecified; K63.3 Ulcer of intestine; K64.9 Unspecified hemorrhoids; E11.22 Type 2 diabetes mellitus with diabetic chronic kidney disease; J45.909 Unspecified asthma, uncomplicated; K21.9 Gastro-esophageal reflux disease without esophagitis; Z99.2 Dependence on renal dialysis; Z91.15 Patient's noncompliance with renal dialysis; Z90.49 Acquired absence of other specified parts of digestive tract; Z98.49 Cataract extraction status, unspecified eye; Z98.61 Coronary angioplasty status; I25.10 Atherosclerotic heart disease of native coronary artery without angina pectoris; E03.9 Hypothyroidism, unspecified; E66.01 Morbid (severe) obesity due to excess calories; Z79.01 Long term (current) use of anticoagulants; Z79.4 Long term (current) use of insulin; Z79.82 Long term (current) use of aspirin; Z79.899 Other long term (current) drug therapy; Z88.1 Allergy status to other antibiotic agents; Z88.8 Allergy status to other drugs, medicaments and biological substances; Z91.040 Latex allergy status; E11.65 Type 2 diabetes mellitus with hyperglycemia; Z88.2 Allergy status to sulfonamides; D63.1 Anemia in chronic kidney disease; D72.829 Elevated white blood cell count, unspecified

== ENCOUNTER 2019-06-20 19:47 | Emergency (ER) | payer MEDICARE ==
[~2019-06-20] VITALS: Ht 142.2 cm; Wt 87.9 kg
[~2019-06-20 19:47] MED LIST changes: +VITAD1000T PO
[2019-06-20 21:40] LABS: BASO # 0.1 10^3/uL (0.0-0.2); BASO % 0.6 % (0.0-1.0); EOS # 0.2 10^3/uL (0.0-0.5); EOS % 1.7 % (0.0-3.0); HEMATOCRIT 37.8 % (36.0-47.0); HEMOGLOBIN 12.2 g/dl (12.0-15.5); LYMPH # 1.3 10^3/uL (1.5-5.0); LYMPH % 10.6 % (24.0-44.0); MEAN CORPUSCULAR HGB CONC 32.3 g/dl (32.0-36.5); MEAN CORPUSCULAR VOLUME 95.9 fl (80.0-96.0); MONO # 0.9 10^3/uL (0.0-0.8); MONO % 7.2 % (0.0-5.0); NEUTROPHILS # 9.7 10^3/uL (1.5-8.5); NEUTROPHILS % 79.6 % (36.0-66.0); PLATELET COUNT, AUTOMATED 376 10^3/uL (150-450); RED BLOOD COUNT 3.94 10^6/uL (4.00-5.40); WHITE BLOOD COUNT 12.1 10^3/uL (4.0-10.0)
[2019-06-20 21:56] LABS: INR 1.04; PROTHROMBIN TIME 13.3 SECONDS (11.8-14.0)
[2019-06-20 21:57] LABS: PARTIAL THROMBOPLASTIN TIME 28.1 SECONDS (25.0-38.4)
[2019-06-20 22:23] VITALS: BP 146/86
== END 2019-06-20 22:33 | disposition home or self-care (01) ==
LOC: M ED 19:47
DX: T82.898A Other specified complication of vascular prosthetic devices, implants and grafts, initial encounter (principal); X58.XXXA Exposure to other specified factors, initial encounter; Y92.89 Other specified places as the place of occurrence of the external cause; I10 Essential (primary) hypertension; E11.9 Type 2 diabetes mellitus without complications; I50.9 Heart failure, unspecified; N18.6 End stage renal disease; J45.909 Unspecified asthma, uncomplicated; E78.5 Hyperlipidemia, unspecified; G47.33 Obstructive sleep apnea (adult) (pediatric); K21.9 Gastro-esophageal reflux disease without esophagitis; E61.1 Iron deficiency; Z99.2 Dependence on renal dialysis; Z95.1 Presence of aortocoronary bypass graft; Z95.5 Presence of coronary angioplasty implant and graft; Z79.899 Other long term (current) drug therapy; Z79.890 Hormone replacement therapy; Z79.82 Long term (current) use of aspirin; Z79.4 Long term (current) use of insulin; Z88.1 Allergy status to other antibiotic agents; Z88.2 Allergy status to sulfonamides; Z88.5 Allergy status to narcotic agent; Z88.8 Allergy status to other drugs, medicaments and biological substances

== ENCOUNTER → 2019-07-17 | Outpatient (CLI) | payer MEDICARE ==
[~2019-07-17] MED LIST changes: +LIDOCAINE W/EPINEPHRINE 1% 20ML VIAL As Ordered ONE
[2019-07-17 07:45] VITALS: BP 137/70
--- NOTE | 2019-07-17 09:27 | ROOPDOC ---
[facility] Report Of Operation Report of Operation DATE OF PROCEDURE: 07/17/19 PREPROCEDURE DIAGNOSES: End-stage renal disease no longer requiring PermCath for dialysis POSTPROCEDURE DIAGNOSES: Same. PROCEDURE: Removal left IJ PermCath. SURGEON: Familia Aleman MD ANESTHESIA: Local anesthesia 8 mL lidocaine with epinephrine INDICATION FOR PROCEDURE: This is a very pleasant 68-year-old patient with end- stage renal disease currently dialyzing with a right brachial axillary AV graft. She no longer requires her left IJ PermCath for dialysis. Risks benefits and alternatives to removal of the PermCath were explained to the patient and she is agreeable to proceed. Informed consent was obtained. REPORT OF OPERATION: The patient's left neck and chest including the catheter were prepped and draped in sterile fashion. A timeout was performed. Local anesthesia was administered to the skin and subcutaneous tissue in the left chest around the catheter exit site. Blunt dissection was used to loosen the cuff from the subcutaneous tissue. Pressure was held at the jugular access site the catheter was removed. The catheter was inspected, and the cuff and tips were intact and no portion was left behind, the catheter was completely intact. Press ure was held for 15 minutes for good hemostasis and sterile dressings were applied. The patient was monitored for 30 minutes post procedure to make sure she does not have any bleeding or hematoma in the right neck. Following this she was discharged in stable condition. ESTIMATED BLOOD LOSS: Negligible. COMPLICATIONS: None. PLAN: Continue to use right upper extremity AV graft for dialysis. Resume preoperative diet and medications. Resume Plavix and eliquis tomorrow. Try to avoid laying flat or bending over for 24 hours to decreased venous pressure. Try to rest with head of bed elevated at least 45. Okay to remove dressing and s hower tomorrow. Replace dry dressing if needed. Follow-up on an as-needed basis. We appreciate the opportunity to participate in the care of this patient. FAMILIA ALEMAN MD Jul 17, 2019 09:27
== END ==
LOC: M IRPRO 07:39
PROVIDERS: ATTEND Surgery Vascular Surgery
DX: Z45.2 Encounter for adjustment and management of vascular access device (principal); N18.6 End stage renal disease; E10.22 Type 1 diabetes mellitus with diabetic chronic kidney disease; I12.0 Hypertensive chronic kidney disease with stage 5 chronic kidney disease or end stage renal disease; G47.33 Obstructive sleep apnea (adult) (pediatric); J45.909 Unspecified asthma, uncomplicated; E66.9 Obesity, unspecified; Z79.899 Other long term (current) drug therapy; Z79.82 Long term (current) use of aspirin; Z88.1 Allergy status to other antibiotic agents; Z88.5 Allergy status to narcotic agent; Z91.040 Latex allergy status; Z91.09 Other allergy status, other than to drugs and biological substances; Z99.2 Dependence on renal dialysis

== ENCOUNTER 2019-08-07 11:38 | Inpatient (IN) | payer MEDICARE ==
[~2019-08-07] VITALS: Ht 142.2 cm; Wt 89.0 kg
[~2019-08-07 11:38] MED LIST changes: -LIDOCAINE W/EPINEPHRINE 1% 20ML VIAL As Ordered ONE
--- NOTE | 2019-08-07 12:48 | REP ---
Clinical: Altered mental status. Comparison: 04/29/2019. Findings: Mediastinum and cardiac silhouette are stable. Lung aquino demonstrate chronic interstitial changes including blunting to the left diaphragmatic surface and costophrenic angle similar to prior examination. No pneumothorax. Skeletal structures stable. Impression: Chronic stable changes primarily involving the left base. Subtle superimposed acute left lower lobe opacity cannot be excluded. Electronically Signed by John King MD 08/07/2019 12:39 P
[2019-08-07] MEDS ORDERED: OMEP-218 (13:44)
[2019-08-07] MEDS ORDERED: CLOP75TA2 PO (13:44)
[2019-08-07 14:00] LABS: BASO % 0.4 % (0.0-1.0); EOS # 0.2 10^3/uL (0.0-0.5); HEMATOCRIT 32.9 % (36.0-47.0); HEMOGLOBIN 10.4 g/dl (12.0-15.5); LYMPH # 1.3 10^3/uL (1.5-5.0); LYMPH % 11.1 % (24.0-44.0); MEAN CORPUSCULAR HEMOGLOBIN 31.3 pg (27.0-33.0); MEAN CORPUSCULAR HGB CONC 31.6 g/dl (32.0-36.5); MEAN CORPUSCULAR VOLUME 99.1 fl (80.0-96.0); MONO # 0.6 10^3/uL (0.0-0.8); MONO % 5.3 % (0.0-5.0); NEUTROPHILS # 9.2 10^3/uL (1.5-8.5); NEUTROPHILS % 80.8 % (36.0-66.0); PLATELET COUNT, AUTOMATED 349 10^3/uL (150-450); RED BLOOD COUNT 3.32 10^6/uL (4.00-5.40); WHITE BLOOD COUNT 11.3 10^3/uL (4.0-10.0)
[2019-08-07 14:27] LABS: ALBUMIN 2.9 GM/DL (3.2-5.2); ALT/SGPT 32 U/L (12-78); BILIRUBIN,DIRECT 0.1 MG/DL (0.0-0.2); BILIRUBIN,TOTAL 0.3 MG/DL (0.2-1.0); BLOOD UREA NITROGEN 67 MG/DL (7-18); CARBON DIOXIDE LEVEL 26 MEQ/L (21-32); CHLORIDE LEVEL 102 MEQ/L (98-107); CK-MB VALUE MASS 2.5 NG/ML (<3.6); CPK CREATINE PHOSPHOKINASE 78 U/L (26-192); CREATININE FOR GFR 4.86 MG/DL (0.55-1.30); GLOMERULAR FILTRATION RATE 9.4 (>39); GLUCOSE, FASTING 253 MG/DL (70-100); MB/CK RELATIVE INDEX 3.21 (< OR =4); NT-PRO BNP 3546 PG/ML (<125); POTASSIUM SERUM 5.1 MEQ/L (3.5-5.1); SODIUM LEVEL 136 MEQ/L (136-145); TOTAL PROTEIN 6.4 GM/DL (6.4-8.2); TROPONIN I < 0.02 NG/ML (< 0.10)
--- NOTE | 2019-08-07 15:36 | REP ---
Clinical: Chest pain. Technique: Axial noncontrast images from the thoracic inlet to the upper abdomen with coronal and sagittal re-formations. Comparison: 10/05/2017. Findings: Irregular areas of pleural thickening involving the left hemithorax with trace bibasilar atelectasis (left greater than right) identified along with mild underlying emphysematous disease. No significant effusion or consolidation. No pneumothorax. No obvious adenopathy. Mediastinum demonstrates atherosclerotic changes to the thoracic aorta and coronary arteries without aortic aneurysm. No pericardial effusion. Musculoskeletal structures demonstrate age-related changes. Impression: Findings primarily involving the left hemithorax are likely chronic. No obvious acute focal consolidation or effusion. Electronically Signed by John King MD 08/07/2019 03:27 P
--- NOTE | 2019-08-07 15:40 | REP ---
CT BRAIN WITHOUT CONTRAST: HISTORY: Dizziness. Comparison head CT study October 04, 2017. CT FINDINGS: Preliminary digital funeral professional radiograph is unremarkable. Bone window settings demonstrate an intact bony calvarium. Visualized paranasal sinuses are clear. No intraorbital abnormality is appreciated. There is mild generalized volume loss. Vascular calcification is again noted. There are small vessel atherosclerotic changes in the periventricular white matter of the frontal lobes bilaterally. There is no evidence of intracranial hemorrhage. No infarct, mass, extra-axial fluid collection, or midline shift is appreciated. Findings are unchanged from the comparison study. IMPRESSION: Vascular calcification, diffuse atrophy and small vessel changes. No acute intracranial abnormality. Electronically Signed by Adryan Hurt MD 08/07/2019 04:03 P
--- NOTE | 2019-08-07 16:23 | ECGEPIP ---
[facility] - ED Test Date: 2019-08-07 Pat Name: MARYBETH HERNADEZ Department: Room: - Gender: Female Regulatory Affairs Analyst: : 1950 Requested By: Sterling Ronquillo Order Number: [id number] Reading MD: Lynn Womack Measurements Intervals [place] Rate: 63 P: 53 [place]: 148 QRS: 6 QRSD: 134 T: 161 QT: 458 QTc: 472 Interpretive Statements SINUS RHYTHM LEFT BUNDLE BRANCH BLOCK SIMILAR 04/29/19 Electronically Signed on 08-07-2019 16:23:07 EDT by Lynn Womack
[2019-08-07] MEDS ORDERED: DEXTROSE 50% 50 ML SYRINGE IV PRN (17:00)
[2019-08-07] MEDS ORDERED: GLUCAGON INJ 1MG VIAL SC PRN (17:00)
[2019-08-07] MEDS ORDERED: GLUCOSE 4GM CHEW TABLET PO PRN (17:00)
[2019-08-07] MEDS ORDERED: ACETAMINOPHEN TAB 650MG DOSE (2X325MG) PO PRN (17:00)
[2019-08-07] MEDS ORDERED: LIDO2.5C15 TOP (17:06)
[2019-08-07] MEDS ORDERED: ALBUTEROL SULFATE 2.5 MG/0.5 ML INH NEB SOLN INH PRN (17:15)
--- NOTE | 2019-08-07 17:16 | HPEPDOC ---
General Date of Admission 08/07/2019 Date of Service: Aug 07, 2019 Chief Complaint The patient is a 69-year-old female who presented to the hospital with complaints of the room spinning History of Present Illness Patient is a 69-year-old female with a PMHx of ESRD on HD (MWF), CAD s/p stent, Diastolic CHF, IDDM2, Asthma, GERD, Recent history of GI bleed 2/2 ulcer in colon who presented to the hospital after she reported the room spinning yesterday evening. Patient reported that yesterday evening she experienced the room spinning. Patient went back to bed. She noted that when she woke up this morning again, the room was spinning, upon trying to sit up. Patient denied any nausea, vomiting, abdominal pain. Denied any constipation or urinary discomfort. Patient has not expense any fevers or chills. Patient did report that yesterday she experienced some loose bowel movements, a nd she noted 3 such events. Because of this, she had avoided going to dialysis. Patient denies any chest pain or any change in her baseline shortness of breath or cough. Denies palpitations Patient reports that she may have experienced prior episodes but she is unclear when. Patient reports her appetite is poor and is unaware of any weight changes. Home Medications Scheduled Aspirin (Aspirin EC) 81 Mg Tab, 81 MG PO DAILY, (Reported) Atorvastatin Calcium (Atorvastatin Calcium) 40 Mg Tab, 40 MG PO DAILY, ( Reported) Azelastine HCl (Azelastine HCl) 0.15 % Spr, 1 SPRAY NARES BID, (Reported) Budesonide/Formoterol (Symbicort 160-4.5 Mcg Inhaler) 6 Gm Hfa.aer.ad, 2 PUFF INH BID, (Reported) Calcitriol (Calcitriol) 0.25 Mcg Cap, 0.25 MCG PO 3XW, (Reported) RECEIVES AT DIALYIS MON/WED/FRI Cholecalciferol (Vitamin D3) (Vitamin D3) 1,000 Unit Tablet, 1,000 UNITS PO DAILY, (Reported) Clopidogrel Bisulfate (Clopidogrel) 75 Mg Tablet, 75 MG PO DAILY, (Reported) Dulaglutide (Trulicity) 1.5 Mg/0.5 Ml Pen.injctr, 1.5 MG SC QWEEK, (Reported) FRIDAYS Ferrous Sulfate (Iron) 325 Mg Tablet, 325 MG PO DAILY, (Reported) Insulin Glargine,Hum.rec.anlog (Lantus Solostar) 100 Unit/1 Ml Insuln.pen, 30 UNITS SC DAILY, (Reported) Insulin Lispro (Humalog Kwikpen U-100) 100 Unit/1 Ml Insuln.pen, 20 UNITS SC AC, (Reported) Levothyroxine Sodium (Levothyroxine Sodium) 112 Mcg Tab, 112 MCG PO DAILY, (Reported) Lidocaine/Prilocaine (Lidocaine-Prilocaine Cream) 2.5%/2.5% Cream..g., 1 APLCT TOP ASDIRECTED, (Reported) APPLY TO ACCESS SITE 1-2 HOURS PRIOR TO DIALYSIS Metoprolol Tartrate (Metoprolol Tartrate) 50 Mg Tablet, 50 MG PO BID, (Reported) Omeprazole (Omeprazole) 20 Mg Tab, 20 MG PO DAILY, (Reported) Torsemide (Torsemide) 20 Mg Tablet, 40 MG PO 4XWK, (Reported) TAKES ON NON-DIALYSIS DAYS TUE//TUE/TUE Scheduled PRN Acetaminophen (Acetaminophen) 500 Mg Tablet, 1,000 MG PO Q6H PRN for PAIN, (Reported) Albuterol Sulfate (Ventolin Hfa) 108 Mcg/Act Aer, 2 PUFFS INH QID PRN for SHORTN ESS OF BREATH, (Reported) Dextrose (Glucose) 4 Gm Chw, 4 GM PO ASDIRECTED PRN for BLOOD SUGAR < 50, (Reported) Loperamide HCl (Imodium A-D) 2 Mg Tablet, 2 MG PO DAILY PRN for DIARRHEA, (Reported) Nitroglycerin (Nitrostat) 0.4 Mg Subl, 0.4 MG SL Q5MP PRN for CHEST PAIN, (Reported) Allergies Coded Allergies: cephalexin (Verified Allergy, Severe, RASH, DYSPNEA, 01/01/19) gatifloxacin (Verified Allergy, Severe, RASH, DYSPNEA, 01/01/19) tramadol (Verified Allergy, Severe, RASH, DYSPNEA, 01/01/19) silver nitrate (Verified Allergy, Intermediate, HIVES, RASH, 08/07/19) chlorhexidine (Verified Allergy, Mild, RASH, 02/23/19) latex (Verified Allergy, Mild, RED, SWOLLEN, RASH, 08/07/19) nitrofurantoin (Verified Allergy, Mild, RASH, 01/01/19) sulfamethoxazole (Verified Adverse Reaction, Intermediate, EFFECTS KIDNEY FUNCTION, 01/01/19) trimethoprim (Verified Adverse Reaction, Intermediate, EFFECTS KIDNEY FUN CTION, 01/01/19) Past Medical History Medical History ESRD on HD (MWF), CAD s/p stent, Diastolic CHF, IDDM2, Asthma, GERD, Recent history of GI bleed 2/2 ulcer in colon Surgical History Appendectomy Cataract surgery Carpal tunnel surgery Tonsillectomy Left ankle fracture repair Family History - Mother with a history of COPD Social History - Denies the use of alcohol, tobacco or illicit drugs - Denies recent travel or sick contacts - Lives with daughter - 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; 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 Review of Systems Other systems 10 point review of systems complete, all negative otherwise stated in HPI Vital Signs - Vitals: BP 145/58, HR 58, RR 16, Sat 93%RA, Temp 97.9F - General: Lying in bed, Speaking in full sentences, AAOx3 - HEENT: NC, AT, PERRLA - CVS: RRR, +S1S2 - Lungs: Fair air entry bilaterally, No appreciable wheezing / rales / rhonchi - Abdomen: Soft, Non-distended, Non-tender - Extremities: Trace pitting edema bilaterally, No calf tenderness - Neuro: No focal motor or sensory deficit - Skin: No visible rashes Laboratory Data Labs 24H Laboratory Tests 2 08/07/19 12:02: Anion Gap 8, Glomerular Filtration Rate 9.4L, Calcium Level 8.0L, Total Bilirubin 0.3, Direct Bilirubin 0.1, Aspartate Amino Transf (AST/SGOT) 24, Alanine Aminotransferase (ALT/SGPT) 32, Alkaline Phosphatase 111, Total Creatine Kinase 78, Creatine Kinase MB 2.5, Creatine Kinase MB Relative Index 3.21, Troponin I < 0.02, XX-Lia-T-Type Natriuretic Peptide 3546H, Total Protein 6.4, Albumin 2.9L, Albumin/Globulin Ratio 0.8L, Thyroid Stimulating Hormone (TSH) 2.660 08/07/19 13:40: Immature Granulocyte % (Auto) 0.4, Neutrophils (%) (Auto) 80.8H, Lymphocytes (%) (Auto) 11.1L, Monocytes (%) (Auto) 5.3H, Eosinophils (%) (Auto) 2.0, Basophils (%) (Auto) 0.4, Neutrophils # (Auto) 9.2H, Lymphocytes # (Auto) 1.3L, Monocytes # (Auto) 0.6, Eosinophils # (Auto) 0.2, Basophils # (Auto) 0.0, Nucleated Red Blood Cells % (auto) 0.0, Lactic Acid Level 1.2 CBC/BMP Laboratory Tests 08/07/19 12:02 08/07/19 13:40 Microbiology Microbiology 08/07/19 Blood Culture, Received Pending 08/07/19 Blood Culture, Received Pending Plan / VTE VTE Prophylaxis Ordered?: Yes Plan Plan Vertigo - Patient presented to the emergency room after she had reported vertigo-like symptoms that started yesterday evening - Troponin x1 negative; will continue to trend - EKG reviewed and is consistent with priors on record - CT head 08/06: Vascular calcification, diffuse atrophy and small vessel changes. No acute intracranial abnormality. - Will get MRI brain - Will start PT (vestibular therapy) ESRD on HD (MWF) / Diastolic CHF - Currently, patient does not appear to be in any acute distress - Saturating well on room air - Physical with trace lower extremity edema - Lab work without any significant electrolyte abnormalities - CXR 08/06: Chronic stable changes primarily involving the left base. Subtle superimposed acute left lower lobe opacity cannot be excluded. - Chest CT 08/06: Findings primarily involving the left hemithorax are likely chronic. No obvious acute focal consolidation or effusion. - Discussed case with nephrology; plan for hemodialysis tomorrow morning CAD s/p stent - c/w ASA, Plavix, and Atorvastatin HTN - c/w Metoprolol IDDM2 - Will c/w adjusted dose of long acting insulin and ISS Asthma - No evidence of exacerbation - c/w inhaled therapy as ordered Hypothyroidism - c/w Levothyroxine GERD / Recent history of GI bleed 2/2 ulcer in colon - c/w Omeprazole DVT prophylaxis - Will start TEDs / RAYMOND Vicente MD Aug 07, 2019 17:16
[2019-08-07] MEDS ORDERED: EMLA CREAM 5GM (LIDOCAINE/PRILOCAINE) TOP SCH (17:30)
[2019-08-07] MEDS ORDERED: NITROGLYCERIN 0.4 MG SUBL TABLET SL PRN (17:30)
[2019-08-07 18:35] LABS: CK-MB VALUE MASS 2.5 NG/ML (<3.6); MB/CK RELATIVE INDEX 2.98 (< OR =4); TROPONIN I 0.02 NG/ML (< 0.10)
[2019-08-07] MEDS: HumaLOG INSULIN (NovoLOG) PER UNIT SC SCH ×2 (19:39→20:59)
[2019-08-07] MEDS: ALBUTEROL SULFATE 2.5 MG/0.5 ML INH NEB SOLN INH SCH (20:00)
[2019-08-07 20:40] VITALS: BP 154/74
[2019-08-07] MEDS: METOPROLOL TART 50 MG TAB PO SCH (21:04)
[2019-08-07] MEDS: SYMBICORT 160/4.5MCG INHALER 6GM INH SCH (21:10)
--- NOTE | 2019-08-07 22:53 | REPVR ---
PROCEDURE INFORMATION: Exam: MR Head Without Contrast Exam date and time: 08/07/2019 7:55 PM Age: 69 years old Clinical indication: Altered mental status/memory loss; Age related cognitive decline; Patient HX: AMS; Additional info: Evaluate for stroke TECHNIQUE: Imaging protocol: MR of the head without contrast. COMPARISON: CT Head without contrast 08/07/2019 2:54 PM FINDINGS: Brain: There is mild cerebral atrophy and changes of chronic white matter microvascular disease. No signs of a recent infarction or hemorrhage. Scattered cavernomas are noted in the cerebellum. Ventricles: Normal. No ventriculomegaly. Bones/joints: Unremarkable. Sinuses: Normal as visualized. No acute sinusitis. Mastoid air cells: Normal as visualized. No mastoid effusion. Orbits: Unremarkable. Soft tissues: Unremarkable. IMPRESSION: 1. Atrophy and chronic white matter changes. 2. No acute intracranial abnormality. Electronically signed by: Santiago Cruz On 08/07/2019 22:53:09 PM
[2019-08-08] VITALS: BP 122/77
[2019-08-08 01:00] LABS: CK-MB VALUE MASS 2.2 NG/ML (<3.6); CPK CREATINE PHOSPHOKINASE 80 U/L (26-192); MB/CK RELATIVE INDEX 2.75 (< OR =4); TROPONIN I < 0.02 NG/ML (< 0.10)
[2019-08-08 04:00] VITALS: BP 135/63
[2019-08-08 05:07] LABS: BASO # 0.1 10^3/uL (0.0-0.2); BASO % 0.5 % (0.0-1.0); EOS # 0.3 10^3/uL (0.0-0.5); EOS % 2.8 % (0.0-3.0); HEMATOCRIT 33.2 % (36.0-47.0); HEMOGLOBIN 10.5 g/dl (12.0-15.5); LYMPH # 1.6 10^3/uL (1.5-5.0); LYMPH % 14.1 % (24.0-44.0); MEAN CORPUSCULAR HEMOGLOBIN 30.8 pg (27.0-33.0); MEAN CORPUSCULAR HGB CONC 31.6 g/dl (32.0-36.5); MEAN CORPUSCULAR VOLUME 97.4 fl (80.0-96.0); MONO # 0.7 10^3/uL (0.0-0.8); MONO % 6.5 % (0.0-5.0); NEUTROPHILS # 8.3 10^3/uL (1.5-8.5); NEUTROPHILS % 75.6 % (36.0-66.0); PLATELET COUNT, AUTOMATED 362 10^3/uL (150-450); RED BLOOD COUNT 3.41 10^6/uL (4.00-5.40)
[2019-08-08 05:31] LABS: CALCIUM LEVEL 8.1 MG/DL (8.8-10.2); CREATININE FOR GFR 4.66 MG/DL (0.55-1.30); GLOMERULAR FILTRATION RATE 9.9 (>39); MAGNESIUM LEVEL 1.6 MG/DL (1.8-2.4); POTASSIUM SERUM 4.7 MEQ/L (3.5-5.1)
[2019-08-08] MEDS: LEVOTHYROXINE 112MCG TABLET (0.112MG) PO SCH (06:09)
[2019-08-08] MEDS: HumaLOG INSULIN (NovoLOG) PER UNIT SC SCH ×4 (06:09→20:49)
[2019-08-08] MEDS: SYMBICORT 160/4.5MCG INHALER 6GM INH SCH ×2 (07:26→19:44)
[2019-08-08] MEDS: ALBUTEROL SULFATE 2.5 MG/0.5 ML INH NEB SOLN INH SCH ×4 (07:26→19:43)
[2019-08-08] MEDS: ATORVASTATIN 20 MG TAB PO SCH (07:57)
[2019-08-08] MEDS: FERROUS SULFATE 325MG TAB PO SCH (07:57)
[2019-08-08] MEDS: VITAMIN D 1,000 INTERNATIONAL UNITS TABLET PO SCH (07:57)
[2019-08-08] MEDS: CLOPIDOGREL 75 MG TAB PO SCH (07:57)
[2019-08-08] MEDS: ASPIRIN 81 MG ENTERIC TAB PO SCH (07:57)
[2019-08-08] MEDS: METOPROLOL TART 50 MG TAB PO SCH ×2 (07:58→20:49)
[2019-08-08] MEDS: OMEPRAZOLE 20 MG CAP PO SCH (07:58)
[2019-08-08] MEDS: LEVEMIR (INSULIN DETEMIR) 1 UNITS/0.01ML SC SCH (07:59)
[2019-08-08 08:00] VITALS: BP 133/64
[2019-08-08] MEDS ORDERED: CALCITRIOL 0.25 MCG CAP (S0169) PO SCH (09:00)
--- NOTE | 2019-08-08 10:02 | IPNPDOC ---
Text Note Date of Service The patient was seen on 08/08/19. NOTE Subjective: Patient is a 69-year-old female with a PMHx of ESRD on HD (MWF), CAD s/p stent, Diastolic CHF, IDDM2, Asthma, GERD, Recent history of GI bleed 2/2 ulcer in colon who presented to the hospital after she reported the room spinning yesterday evening. Patient reported that yesterday evening she experienced the room spinning. Patient went back to bed. She noted that when she woke up this morning again, the room was spinning, upon trying to sit up. Patient was admitted to the hospitalist service for further evaluation of her vertigo. Patient was seen and examined at the bedside. Patient reports that this morning she has not had any recurrence of her symptoms. She denies nausea, vomiting, abdominal pain. Denies any diarrhea. Patient is scheduled for dialysis today and will be working with physical therapy after that. Objective: Vitals (See below) General: Lying in bed, appears comfortable, AAOx3 HEENT: NC, AT CVS: +S1S2 Lungs: Fair air entry b/l, no evidence of wheezing, rhonchi or crackles Abdomen: Soft, ND, NT Extremities: Lower extremities do reveal 1+ pitting edema, - Calf tenderness Assessment and plan: Vertigo - Patient presented to the ER after she had reported vertigo-like symptoms that started yesterday evening - Patient reports she has not had a recurrence of her symptoms - Troponin x3 negative - EKG reviewed and is consistent with priors on record - CT head 08/06: Vascular calcification, diffuse atrophy and small vessel changes. No acute intracranial abnormality. - MRI brain 08/06: 1. Atrophy and chronic white matter changes. 2. No acute intracranial abnormality. - Patient will be evaluated by PT (vestibular therapy); will likely require continued outpatient vestibular therapy ESRD on HD (MWF) / Diastolic CHF - Patient reports that she missed her hemodialysis session on Tuesday - Physical with evidence of lower extremity edema - Lab work without any significant electrolyte abnormalities - CXR 08/06: Chronic stable changes primarily involving the left base. Subtle superimposed acute left lower lobe opacity cannot be excluded. - Chest CT 08/06: Findings primarily involving the left hemithorax are likely chronic. No obvious acute focal consolidation or effusion. - Nephrology on consultation; appreciate their input; will be going for regularly scheduled HD today CAD s/p stent - c/w ASA, Plavix, and Atorvastatin HTN - c/w Metoprolol IDDM2 - c/w adjusted dose of long acting insulin and ISS Asthma - No evidence of exacerbation - c/w inhaled therapy as ordered Hypothyroidism - c/w Levothyroxine GERD / Recent history of GI bleed 2/2 ulcer in colon - c/w Omeprazole DVT prophylaxis - c/w TEDs / Sequentials Disposition: - Dialysis today - Will have Vestibular therapy later today VS,Raffibone, I+O VS, Raffibone, I+O Laboratory Tests 08/07/19 12:02 08/07/19 13:40 08/08/19 04:51 Vital Signs Date Time Temp Pulse Resp B/P (MAP) Pulse Ox O2 Delivery O2 Flow Rate FiO2 08/08/19 08:00 97.6 62 16 133/64 (87) 98 Room Air I&O- Last 24 Hours up to 6 AM 08/08/19 06:00 Intake Total 400 ml Output Total 500 ml Balance -100 ml RAYMOND GROVES MD Aug 08, 2019 10:02
[2019-08-08] MEDS ORDERED: LIDOCAINE 1% SDV 5ML VIAL SQ ONE (10:30)
[2019-08-08 13:07] VITALS: BP 151/70
[2019-08-08 15:32] VITALS: BP 135/53
--- NOTE | 2019-08-08 15:57 | CR ---
DATE OF CONSULTATION: 08/08/2019 REASON FOR CONSULTATION: Assist in the management of end-stage renal disease. HISTORY OF PRESENT ILLNESS: Mrs. Duran is a 69-year-old female with multiple chronic medical problems including diabetes, coronary artery disease, diastolic congestive heart failure, gastroesophageal reflux disease (GERD), prior history of gastrointestinal (GI) bleed and asthma. She missed her dialysis on Tuesday due to not feeling well and was last dialyzed on Tuesday. She presented to the emergency room on 08/07/2019 with complaint of dizziness and the room spinning around her. It is important to know that she did not have dialysis on Tuesday and denies any vomiting or diarrhea. In any event, the patient was admitted yesterday and a nephrology consultation was requested. I have seen the patient this morning. PAST MEDICAL AND SURGICAL HISTORY: Significant for 1. History of longstanding diabetes. 2. Hypertension. 3. Coronary artery disease with prior angioplasty and stents. 4. History of diastolic congestive heart failure. 5. History of asthma. 6. History of gastroesophageal reflux disease. 7. History of GI bleed recently. 8. History of anemia of chronic renal failure. 9. History of secondary hyperparathyroidism. The past surgical history is significant for: 1. Appendectomy. 2. Cataract surgery. 3. Carpal tunnel release, 4. Tonsillectomy. 5. . 6. Left ankle fracture repair. 7. Multiple procedures for her AV fistula. MEDICATIONS: Her home medications include - aspirin 81 mg daily - atorvastatin 40 mg daily - Symbicort inhaler two puffs twice a day - vitamin D 1000 units daily - calcitriol 0.25 mcg three times a week - Plavix 75 mg daily -Trulicity 1.5 mg injection once a week - ferrous sulfate 325 mg daily - Lantus insulin 30 units daily - Humalog insulin per sliding scale - levothyroxine 112 mcg daily - metoprolol 50 mg twice a day - omeprazole 20 mg daily - torsemide 20 mg, two tablets daily four times a week on nondialysis days. - Tylenol as needed for pain - albuterol inhaler as needed for dyspnea - nitroglycerin 0.4 mg as needed for chest pain - loperamide 2 mg as needed for diarrhea. PERSONAL AND SOCIAL HISTORY: The patient denies any smoking, alcohol or drug use. FAMILY HISTORY: Noncontributory for this admission. REVIEW OF SYSTEMS: The patient denies any fever or chills. On review of head and neck. She felt that her head was lightheaded and the room was spinning around her yesterday. Those symptoms have now improved. She denies any ears, nose or throat problems. Cardiovascular system is significant for diastolic congestive heart failure and coronary artery disease. She denies any chest pain or dyspnea at present. Respiratory system is significant for asthma. She has no hemoptysis or pleuritic type of chest pain. Her breathing is comfortable. GI system is negative for vomiting or diarrhea. She does have recent history of GI bleed. system is negative for dysuria or hematuria. Endocrine system is significant for hypothyroidism, type 2 diabetes and secondary hyperparathyroidism. Psychosocial system negative for depression or anxiety. Hematological system is significant for anemia of chronic kidney disease. She is not on chronic anticoagulation. Neurological system is negative for seizures or stroke. Musculoskeletal system is significant for chronic back pain but no lower extremity edema. Skin is negative for rash or ulcers. PHYSICAL EXAMINATION: Temperature 97.6 degrees Fahrenheit, heart rate 62 per minute and respiratory rate 16 per minute. Blood pressure 133/64 mmHg and oxygen saturation 98% on room air. Head is atraumatic. Neck: Supple and jugular venous distention (JVD) difficult to be assessed. She has no oral thrush or ulcers. Heart: Sounds are regular. Lungs: Sound clear to auscultation. Abdomen: Obese, soft and nontender and bowel sounds are normal. Extremities have no cyanosis or clubbing. A right arm AV fistula is being used for dialysis and functioning well. Neurologically she is awake, alert and at her baseline mentation without a focal deficit. LABORATORY DATA: Today's labs show WBC count 11.0, hemoglobin 10.5 and hematocrit 33.2, platelets 362. Sodium 137, potassium 4.7, CO2 24, BUN 68 and creatinine 4.66. Calcium 8.1 and magnesium 1.6. Yesterday her lactic acid level was 1.2. PROBLEMS: 1. End-stage renal disease. The patient did miss her dialysis on Tuesday. She is being dialyzed this morning and tolerating her dialysis well so far. 2. Diastolic congestive heart failure: The patient has been reasonably well-compensated with dialysis and diuretic on nondialysis days. We are trying to remove about 2 liters of fluid today and she is tolerating it very well. 3. Dizziness and vertigo: She is feeling better and it remains to be seen how she does after dialysis. We will continue to monitor closely. 4. Anemia: Her anemia has been stable and does not need any urgent intervention at present. 5. Hypertension: Blood pressure very well controlled on current medications and no changes are being made today. Thank you for involving me in the care of Ms. Duran. I will follow her along with you.
[2019-08-08 20:00] VITALS: BP 106/68
[2019-08-09] VITALS: BP 105/56
[2019-08-09 04:00] VITALS: BP 130/62
[2019-08-09 05:08] LABS: BASO # 0.1 10^3/uL (0.0-0.2); BASO % 0.6 % (0.0-1.0); EOS # 0.2 10^3/uL (0.0-0.5); EOS % 2.1 % (0.0-3.0); HEMATOCRIT 32.2 % (36.0-47.0); HEMOGLOBIN 10.3 g/dl (12.0-15.5); LYMPH # 1.2 10^3/uL (1.5-5.0); LYMPH % 13.4 % (24.0-44.0); MEAN CORPUSCULAR HEMOGLOBIN 30.9 pg (27.0-33.0); MEAN CORPUSCULAR VOLUME 96.7 fl (80.0-96.0); MONO # 0.7 10^3/uL (0.0-0.8); MONO % 7.8 % (0.0-5.0); NEUTROPHILS # 6.8 10^3/uL (1.5-8.5); NEUTROPHILS % 75.8 % (36.0-66.0); PLATELET COUNT, AUTOMATED 341 10^3/uL (150-450); RED BLOOD COUNT 3.33 10^6/uL (4.00-5.40)
[2019-08-09 05:28] LABS: CREATININE FOR GFR 3.13 MG/DL (0.55-1.30); GLOMERULAR FILTRATION RATE 15.6 (>39); MAGNESIUM LEVEL 1.7 MG/DL (1.8-2.4)
[2019-08-09] MEDS ORDERED: ONDANSETRON 4MG/2ML VIAL As Ordered ONE (06:03)
[2019-08-09] MEDS ORDERED: ONDANSETRON 4MG/2ML VIAL IV PRN (06:15)
[2019-08-09] MEDS: LEVOTHYROXINE 112MCG TABLET (0.112MG) PO SCH (06:15)
[2019-08-09 07:21] VITALS: BP 124/58
[2019-08-09] MEDS: ALBUTEROL SULFATE 2.5 MG/0.5 ML INH NEB SOLN INH SCH ×2 (07:24→11:52)
[2019-08-09] MEDS: SYMBICORT 160/4.5MCG INHALER 6GM INH SCH (07:24)
[2019-08-09] MEDS: HumaLOG INSULIN (NovoLOG) PER UNIT SC SCH ×2 (08:14→11:21)
[2019-08-09] MEDS: LEVEMIR (INSULIN DETEMIR) 1 UNITS/0.01ML SC SCH (08:14)
[2019-08-09 08:15] VITALS: BP 124/58
[2019-08-09] MEDS: FERROUS SULFATE 325MG TAB PO SCH (08:15)
[2019-08-09] MEDS: CLOPIDOGREL 75 MG TAB PO SCH (08:15)
[2019-08-09] MEDS: ASPIRIN 81 MG ENTERIC TAB PO SCH (08:15)
[2019-08-09] MEDS: METOPROLOL TART 50 MG TAB PO SCH (08:15)
[2019-08-09] MEDS: OMEPRAZOLE 20 MG CAP PO SCH (08:15)
[2019-08-09] MEDS: VITAMIN D 1,000 INTERNATIONAL UNITS TABLET PO SCH (08:15)
[2019-08-09] MEDS: ATORVASTATIN 20 MG TAB PO SCH (08:15)
[2019-08-09] MEDS ORDERED: TORSEMIDE 20 MG TAB PO SCH (09:00)
--- NOTE | 2019-08-09 10:19 | DS.PDOC ---
Discharge Summary General Date of Admission Aug 07, 2019 at 16:52 Date of Discharge 08/09/2019 Discharge Summary PROCEDURES PERFORMED DURING STAY: [None]. ADMITTING DIAGNOSES / DISCHARGE DIAGNOSES: Vertigo ESRD on HD (MWF) / Diastolic CHF CAD s/p stent HTN IDDM2 Asthma Hypothyroidism GERD / Recent history of GI bleed 2/2 ulcer in colon DVT prophylaxis COMPLICATIONS/CHIEF COMPLAINT: Vertigo. HISTORY OF PRESENT ILLNESS: Patient is a 69-year-old female with a PMHx of ESRD on HD (MWF), CAD s /p stent, Diastolic CHF, IDDM2, Asthma, GERD, Recent history of GI bleed 2/2 ulcer in colon who presented to the hospital after she reported the room spinning yesterday evening. Patient reported that yesterday evening she experienced the room spinning. Patient went back to bed. She noted that when she woke up this morning again, the room was spinning, upon trying to sit up. Patient was admitted to the hospitalist service for further evaluation of her vertigo. HOSPITAL COURSE: Vertigo - Patient has denied any vertigo-like symptoms since admission - Troponin x3 negative - EKG reviewed and is consistent with priors on record - CT head 08/06: Vascular calcification, diffuse atrophy and small vessel changes. No acute intracranial abnormality. - MRI brain 08/06: 1. Atrophy and chronic white matter changes. 2. No acute intracranial abnormality. - Patient is cleared physical therapy for discharge home; will have outpatient follow-up with vestibular therapy if there is recurrence of her symptoms ESRD on HD (MWF) / Diastolic CHF - Patient reports that she missed her hemodialysis session on Tuesday - Lab work without any significant electrolyte abnormalities - CXR 08/06: Chronic stable changes primarily involving the left base. Subtle superimposed acute left lower lobe opacity cannot be excluded. - Chest CT 08/06: Findings primarily involving the left hemithorax are likely chronic. No obvious acute focal consolidation or effusion. - s/p HD on 08/07 - Nephrology on consultation; appreciate their input CAD s/p stent - c/w ASA, Plavix, and Atorvastatin HTN - c/w Metoprolol IDDM2 - c/w adjusted dose of long acting insulin and ISS Asthma - No evidence of exacerbation - c/w inhaled therapy as ordered Hypothyroidism - c/w Levothyroxine GERD / Recent history of GI bleed 2/2 ulcer in colon - c/w Omeprazole DVT prophylaxis - c/w TEDs / Sequentials DISCHARGE MEDICATIONS: Please see below. ALLERGIES: Please see below. PHYSICAL EXAMINATION ON DISCHARGE: Vitals (See below) General: Lying in bed without any evidence of distress, appears to be comfortable, AAOx3 HEENT: NC, AT CVS: +S1S2 Lungs: Air entry is fair bilaterally without evidence of rhonchi, crackles or wheezing Abdomen: Soft, nondistended Extremities: Trace pitting edema bilaterally , - Calf tenderness LABORATORY DATA: Please see below. ACTIVITY: [As tolerated]. DISCHARGE PLAN: Follow-up with primary care provider and nephrology within 7 days Remain compliant with treatment plan and medications Return to the ER if you experience any problems DISPOSITION: Home DISCHARGE CONDITION: [Stable]. TIME SPENT ON DISCHARGE: 35 minutes. Vital Signs/I&Os Vital Signs Date Time Temp Pulse Resp B/P (MAP) Pulse Ox O2 Delivery O2 Flow Rate FiO2 08/09/19 08:15 64 124/58 08/09/19 07:21 96.4 18 98 Room Air I&O- Last 24 Hours up to 6 AM 08/09/19 06:00 Intake Total 940 ml Output Total 2800 ml Balance -1860 ml Laboratory Data Labs 24H Laboratory Tests 2 08/08/19 13:10: Bedside Glucose (Misc Panel) 117H 08/08/19 16:41: Bedside Glucose (Misc Panel) 194H 08/08/19 20:46: Bedside Glucose (Misc Panel) 160H 08/09/19 04:49: Immature Granulocyte % (Auto) 0.3, Neutrophils (%) (Auto) 75.8H, Lymphocytes (%) (Auto) 13.4L, Monocytes (%) (Auto) 7.8H, Eosinophils (%) (Auto) 2.1, Basophils (%) (Auto) 0.6, Neutrophils # (Auto) 6.8, Lymphocytes # (Auto) 1.2L, Monocytes # (Auto) 0.7, Eosinophils # (Auto) 0.2, Basophils # (Auto) 0.1, Nucleated Red Blood Cells % (auto) 0.0, Anion Gap 8, Glomerular Filtration Rate 15.6L, Calcium Level 8.0L, Magnesium Level 1.7L CBC/BMP Laboratory Tests 08/09/19 04:49 FSBS Laboratory Tests Test 08/08/19 13:10 08/08/19 16:41 08/08/19 20:46 Range/Units Bedside Glucose (Misc Panel) 117 194 160 83-110 MG/DL Microbiology Microbiology 08/07/19 Blood Culture - Preliminary, Resulted No growth after 24 hours . All specim... 08/07/19 Blood Culture - Preliminary, Resulted No growth after 24 hours . All specim... Discharge Medications Scheduled Aspirin (Aspirin EC) 81 Mg Tab, 81 MG PO DAILY, (Reported) Atorvastatin Calcium (Atorvastatin Calcium) 40 Mg Tab, 40 MG PO DAILY, (Reported) Azelastine HCl (Azelastine HCl) 0.15 % Spr, 1 SPRAY NARES BID, (Reported) Budesonide/Formoterol (Symbicort 160-4.5 Mcg Inhaler) 6 Gm Hfa.aer.ad, 2 PUFF INH BID, (Reported) Calcitriol (Calcitriol) 0.25 Mcg Cap, 0.25 MCG PO 3XW, (Reported) RECEIVES AT DIALYIS TUE/TUE/TUE Cholecalciferol (Vitamin D3) (Vitamin D3) 1,000 Unit Tablet, 1,000 UNITS PO DAILY, (Reported) Clopidogrel Bisulfate (Clopidogrel) 75 Mg Tablet, 75 MG PO DAILY, (Reported) Dulaglutide (Trulicity) 1.5 Mg/0.5 Ml Pen.injctr, 1.5 MG SC QWEEK, (Reported) FRIDAYS Ferrous Sulfate (Iron) 325 Mg Tablet, 325 MG PO DAILY, (Reported) Insulin Glargine,Hum.rec.anlog (Lantus Solostar) 100 Unit/1 Ml Insuln.pen, 30 UNITS SC DAILY, (Reported) Insulin Lispro (Humalog Kwikpen U-100) 100 Unit/1 Ml Insuln.pen, 20 UNITS SC AC, (Reported) Levothyroxine Sodium (Levothyroxine Sodium) 112 Mcg Tab, 112 MCG PO DAILY, (Reported) Lidocaine/Prilocaine (Lidocaine-Prilocaine Cream) 2.5%/2.5% Cream..g., 1 APLCT TOP ASDIRECTED, (Reported) APPLY TO ACCESS SITE 1-2 HOURS PRIOR TO DIALYSIS Metoprolol Tartrate (Metoprolol Tartrate) 50 Mg Tablet, 50 MG PO BID, (Reported) Omeprazole (Omeprazole) 20 Mg Tab, 20 MG PO DAILY, (Reported) Torsemide (Torsemide) 20 Mg Tablet, 40 MG PO 4XWK, (Reported) TAKES ON NON-DIALYSIS DAYS TUE//TUE/TUE Scheduled PRN Acetaminophen (Acetaminophen) 500 Mg Tablet, 1,000 MG PO Q6H PRN for PAIN, (Reported) Albuterol Sulfate (Ventolin Hfa) 108 Mcg/Act Aer, 2 PUFFS INH QID PRN for SHORTNESS OF BREATH, (Reported) Dextrose (Glucose) 4 Gm Chw, 4 GM PO ASDIRECTED PRN for BLOOD SUGAR < 50, (Reported) Loperamide HCl (Imodium A-D) 2 Mg Tablet, 2 MG PO DAILY PRN for DIARRHEA, (Reported) Nitroglycerin (Nitrostat) 0.4 Mg Subl, 0.4 MG SL Q5MP PRN for CHEST PAIN, (Reported) Allergies Coded Allergies: cephalexin (Verified Allergy, Severe, RASH, DYSPNEA, 01/01/19) gatifloxacin (Verified Allergy, Severe, RASH, DYSPNEA, 01/01/19) tramadol (Verified Allergy, Severe, RASH, DYSPNEA, 01/01/19) silver nitrate (Verified Allergy, Intermediate, HIVES, RASH, 08/07/19) chlorhexidine (Verified Allergy, Mild, RASH, 02/23/19) latex (Verified Allergy, Mild, RED, SWOLLEN, RASH, 08/07/19) nitrofurantoin (Verified Allergy, Mild, RASH, 01/01/19) sulfamethoxazole (Verified Adverse Reaction, Intermediate, EFFECTS KIDNEY FUNCTION, 01/01/19) trimethoprim (Verified Adverse Reaction, Intermediate, EFFECTS KIDNEY FUNCTION, 01/01/19) RAYMOND GROVES MD Aug 09, 2019 10:19
--- NOTE | 2019-08-09 15:25 | IPN ---
DATE OF VISIT: 08/08/2019 Mrs. Duran is seen this morning on her bedside. She is sitting in the chair and reports that she had nausea this morning, which has now improved after she was medicated. She denies any dizziness or vertigo. She did have dialysis yesterday, which she tolerated very well, and we were able to remove about 2.5 liters of fluid with dialysis. She denies any dyspnea or chest pain. On physical exam, temperature 96.4 degrees Fahrenheit, heart rate 64 per minute and respiratory rate 18 per minute. Blood pressure 124/58 mmHg and oxygen saturation 98% on room air. Head is atraumatic. Neck is supple and jugular venous distention (JVD) difficult to be assessed. Heart sounds are regular and lungs with diminished breath sounds. Abdomen obese, soft and nontender, and bowel sounds are normal. Extremities without any cyanosis or clubbing. Right arm arteriovenous (AV) fistula is patent. Neurologically, she is awake, alert and oriented times three. Today's labs show WBC count 9.0, hemoglobin 10.3 and hematocrit 32.2. Sodium 135, potassium 4.0, CO2 28, BUN 35 and creatinine 3.13. Calcium 8.0 and magnesium 1.7. PROBLEMS: 1. End-stage renal disease. Patient was dialyzed yesterday and she tolerated dialysis well. Her next regular dialysis day is tomorrow. She can be dialyzed as an outpatient if she gets discharged today. 2. Congestive heart failure. Volume status is very well compensated and we were able to remove 2-1/2 liters of fluid yesterday without any problem. 3. Vertigo and dizziness. Her symptoms have improved and completely resolved. She is feeling well now and can continue with symptomatic treatment. I do not feel that her vertigo was related to dehydration. DISPOSITION: From renal standpoint, patient can be discharged to home and will followup in outpatient dialysis clinic. Her next dialysis is scheduled for tomorrow.
== END 2019-08-09 12:40 | disposition home or self-care (01) | DRG 149 ==
LOC: EDBD 11:38 → M ED 11:38 → M ED INP 16:52 → ENRESERV 19:46 → M PCU 20:40
PROVIDERS: ADMIT Internal Medicine; ATTEND Internal Medicine
PROC: 5A1D70Z Performance of Urinary Filtration, Intermittent, Less than 6 Hours Per Day (ICD-10-PCS; principal; 2019-08-08)
DX: R42 Dizziness and giddiness (principal); N18.6 End stage renal disease; I50.32 Chronic diastolic (congestive) heart failure; N25.81 Secondary hyperparathyroidism of renal origin; E11.9 Type 2 diabetes mellitus without complications; J45.909 Unspecified asthma, uncomplicated; K21.9 Gastro-esophageal reflux disease without esophagitis; E03.9 Hypothyroidism, unspecified; I25.10 Atherosclerotic heart disease of native coronary artery without angina pectoris; Z95.2 Presence of prosthetic heart valve; Z79.82 Long term (current) use of aspirin; Z79.899 Other long term (current) drug therapy; Z79.4 Long term (current) use of insulin; Z91.040 Latex allergy status; Z88.2 Allergy status to sulfonamides; Z88.8 Allergy status to other drugs, medicaments and biological substances

== ENCOUNTER 2019-11-03 14:02 | Emergency (ER) | payer MEDICARE ==
[~2019-11-03] VITALS: Ht 142.2 cm; Wt 86.8 kg
[~2019-11-03 14:02] MED LIST changes: +AMLO1TAB24 PO; -AMLO5TAB6 PO; +D31000TA2 PO; +LIDO2.5C15 TOP; +OMEP-218; -VITAD1000T PO
--- NOTE | 2019-11-03 14:43 | REPVR ---
PROCEDURE INFORMATION: Exam: CT Cervical Spine Without Contrast Exam date and time: 11/03/2019 2:25 PM Age: 69 years old Clinical indication: Injury or trauma; Fall; Initial encounter; Blunt trauma TECHNIQUE: Imaging protocol: Computed tomography images of the cervical spine without contrast. Radiation optimization: All CT scans at this facility use at least one of these dose optimization techniques: automated exposure control; mA and/or kV adjustment per patient size (includes targeted exams where dose is matched to clinical indication); or iterative reconstruction. COMPARISON: No relevant prior studies available. FINDINGS: Vertebrae: Cortical irregularity along the left lateral aspect of the T1 vertebral body and pedicle extending towards the transverse process best seen on axial image number 77 is favored chronic, with no convincing acute fracture line. There is moderate degenerative disc disease at C5-C6 with otherwise mild multilevel degenerative change. No acute cervical spine fracture or traumatic malalignment. Soft tissues: Unremarkable. Lungs: Lung apices are normal. Vasculature: Scattered atherosclerotic calcifications. IMPRESSION: No acute cervical spine fracture or traumatic malalignment. Electronically signed by: Dylan Hernandez On 11/03/2019 14:43:35 PM
--- NOTE | 2019-11-03 14:46 | REPVR ---
PROCEDURE INFORMATION: Exam: CT Head Without Contrast Exam date and time: 11/03/2019 2:25 PM Age: 69 years old Clinical indication: Injury or trauma; Fall; Initial encounter; Blunt trauma (contusions or hematomas) TECHNIQUE: Imaging protocol: Computed tomography of the head without contrast. Radiation optimization: All CT scans at this facility use at least one of these dose optimization techniques: automated exposure control; mA and/or kV adjustment per patient size (includes targeted exams where dose is matched to clinical indication); or iterative reconstruction. COMPARISON: CT Head without contrast 08/07/2019 2:54 PM FINDINGS: Brain: Moderate generalized cerebral volume loss and moderate patchy white matter hypoattenuation, commonly secondary to chronic small vessel ischemic change. Moderate intracranial atherosclerosis. No acute ischemic infarction. No acute intracranial hemorrhage. Cerebral ventricles: Ventriculomegaly, in keeping with degree of parenchymal volume loss. Bones/joints: No acute fracture. Paranasal sinuses: Visualized sinuses are unremarkable. No fluid levels. Mastoid air cells: Visualized mastoid air cells are well aerated. Auditory system: Partially calcified debris partially occludes both external auditory canals, likely cerumen. Soft tissues: Unremarkable. IMPRESSION: No acute intracranial abnormality. Electronically signed by: Dylan Hernandez On 11/03/2019 14:46:06 PM
[2019-11-03 15:30] VITALS: BP 120/58
--- NOTE | 2019-11-03 16:33 | REPVR ---
PROCEDURE INFORMATION: Exam: XR Lumbosacral Spine, 4 or 5 Views Exam date and time: 11/03/2019 3:24 PM Age: 69 years old Clinical indication: Other: [place]; Additional info: Trauma TECHNIQUE: Imaging protocol: XR of the lumbosacral spine, 4 or 5 views. COMPARISON: MRI-Spine, L.S. without con 12/23/2017 1:41 PM FINDINGS: Vertebrae: Minimal levocurvature of the lower lumbar spine. Multilevel posterior facet joint arthropathy. Mild to moderate disc space narrowing at L2-L3, L3-L4, and L4-L5. Moderate degenerative endplate changes at L2-L3 through L4-L5. No acute fracture is identified. Normal sagittal alignment. Soft tissues: Unremarkable. Vasculature: Atherosclerotic vascular calcifications. IMPRESSION: No acute lumbar spine fracture is identified. Electronically signed by: Mile Huddleston On 11/03/2019 16:32:49 PM
== END 2019-11-03 18:00 | disposition home or self-care (01) ==
LOC: EDBD 14:02 → M ED 14:02
DX: S13.4XXA Sprain of ligaments of cervical spine, initial encounter (principal); S39.012A Strain of muscle, fascia and tendon of lower back, initial encounter; W10.8XXA Fall (on) (from) other stairs and steps, initial encounter; Y92.019 Unspecified place in single-family (private) house as the place of occurrence of the external cause; N18.6 End stage renal disease; Z99.2 Dependence on renal dialysis; I11.0 Hypertensive heart disease with heart failure; E11.9 Type 2 diabetes mellitus without complications; Z88.1 Allergy status to other antibiotic agents; Z88.8 Allergy status to other drugs, medicaments and biological substances; Z88.2 Allergy status to sulfonamides; Z91.040 Latex allergy status; Z79.51 Long term (current) use of inhaled steroids; Z79.899 Other long term (current) drug therapy

== ENCOUNTER 2019-11-05 17:46 | Emergency (ER) | payer MEDICARE ==
[~2019-11-05] VITALS: Ht 142.2 cm; Wt 87.3 kg
[2019-11-05] MEDS ORDERED: vit d (18:00)
[2019-11-05] MEDS ORDERED: OMEP-218 (18:00)
[2019-11-05] MEDS ORDERED: magnesium (18:02)
--- NOTE | 2019-11-05 18:22 | REPVR ---
PROCEDURE INFORMATION: Exam: CT Cervical Spine Without Contrast Exam date and time: 11/05/2019 6:10 PM Age: 69 years old Clinical indication: Injury or trauma; Fall; Initial encounter; Blunt trauma; Additional info: Fall on thinner TECHNIQUE: Imaging protocol: Computed tomography images of the cervical spine without contrast. Radiation optimization: All CT scans at this facility use at least one of these dose optimization techniques: automated exposure control; mA and/or kV adjustment per patient size (includes targeted exams where dose is matched to clinical indication); or iterative reconstruction. COMPARISON: CT Spine,cervical w/o contrast 11/03/2019 2:22 PM FINDINGS: Vertebrae: Vertebral body heights are maintained. No locked or perched facets. Multilevel facet arthropathy. No acute cervical spine fracture. The dens is intact. Atlanto-axial intervals are normal. Discs/Spinal canal/Neural foramina: Multilevel degenerative changes with intervertebral disc height loss and osteophyte formation. No significant spinal stenosis. Soft tissues: Unremarkable. Lungs: Lung apices are clear. IMPRESSION: No acute cervical spine fracture. Electronically signed by: Dinh Fish On 11/05/2019 18:22:09 PM
--- NOTE | 2019-11-05 18:24 | REPVR ---
PROCEDURE INFORMATION: Exam: CT Head Without Contrast Exam date and time: 11/05/2019 6:10 PM Age: 69 years old Clinical indication: Injury or trauma; Fall; Blunt trauma (contusions or hematomas); Additional info: Fall on thinner TECHNIQUE: Imaging protocol: Computed tomography of the head without contrast. Radiation optimization: All CT scans at this facility use at least one of these dose optimization techniques: automated exposure control; mA and/or kV adjustment per patient size (includes targeted exams where dose is matched to clinical indication); or iterative reconstruction. COMPARISON: CT Head without contrast 11/03/2019 2:22 PM FINDINGS: Brain: Nonspecific hypodensities of the periventricular and deep subcortical white matter, most likely secondary to chronic small vessel ischemic change. No intracranial hemorrhage or extra-axial fluid collection. No evidence of mass effect or midline shift. Garza-white matter differentiation is normal. Cerebral ventricles: Prominence of the ventricles and sulci, most likely attributed to parenchymal volume loss. Bones/joints: No acute osseus lesion or fracture. Paranasal sinuses: Visualized sinuses are unremarkable. No fluid levels. Mastoid air cells: Unremarkable. Soft tissues: Unremarkable. IMPRESSION: 1. No acute intracranial pathology. 2. Other chronic findings, as above. Electronically signed by: Dinh Fish On 11/05/2019 18:23:48 PM
[2019-11-05] MEDS ORDERED: ONDA4TAB6 PO (20:16)
[2019-11-05 20:24] VITALS: BP 158/70
== END 2019-11-05 20:25 | disposition home or self-care (01) ==
LOC: M ED 17:46
DX: S06.0X0A Concussion without loss of consciousness, initial encounter (principal); W10.8XXA Fall (on) (from) other stairs and steps, initial encounter; Y92.019 Unspecified place in single-family (private) house as the place of occurrence of the external cause; Y99.9 Unspecified external cause status; G89.29 Other chronic pain; M54.5 Low back pain; M54.2 Cervicalgia; I11.0 Hypertensive heart disease with heart failure; J45.909 Unspecified asthma, uncomplicated; N18.6 End stage renal disease; E61.1 Iron deficiency; Z79.899 Other long term (current) drug therapy

== ENCOUNTER 2019-11-10 12:28 | Emergency (ER) | payer MEDICARE ==
[~2019-11-10] VITALS: Ht 142.2 cm; Wt 86.8 kg
[~2019-11-10 12:28] MED LIST changes: +ONDA4TAB6 PO; +magnesium; +vit d
[2019-11-10] MEDS ORDERED: ACETAMINOPHEN TAB 650MG DOSE (2X325MG) PO ONE (13:00)
[2019-11-10] MEDS ORDERED: METOCLOPRAMIDE 10 MG TAB PO ONE (13:00)
[2019-11-10] MEDS ORDERED: METOPROLOL TART 25 MG TABLET PO ONE (13:15)
[2019-11-10 13:19] VITALS: BP 146/58
--- NOTE | 2019-11-10 14:02 | REPVR ---
PROCEDURE INFORMATION: Exam: XR Right Knee Exam date and time: 11/10/2019 12:57 PM Age: 69 years old Clinical indication: Injury or trauma; Fall; Sprain or strain; Patella or knee; Bilateral TECHNIQUE: Imaging protocol: XR Right knee. Views: 1 or 2 views. COMPARISON: None provided. FINDINGS: Bones/joints: No acute fracture or dislocation is identified. The medial compartment is mildly narrowed and with mild periarticular osteophyte formation. The patellofemoral compartment is moderately narrowed and with mild periarticular osteophyte formation. Very mild osteophyte formation is present about the lateral compartment. The bones appear osteopenic. There are superior and inferior patellar enthesophytes. Soft tissues: Moderate fullness of the soft tissues in the suprapatellar region is noted. Vasculature: Atherosclerotic vascular calcifications are noted. IMPRESSION: 1. No acute fracture or dislocation identified. 2. Moderate suprapatellar soft tissue fullness suggesting effusion and/or synovial hypertrophy. 3. Apparent osteopenia. 4. Degenerative changes as described. PROCEDURE INFORMATION: Exam: XR Left Knee Exam date and time: 11/10/2019 12:57 PM Age: 69 years old Clinical indication: Injury or trauma; Fall; Sprain or strain; Patella or knee; Bilateral TECHNIQUE: Imaging protocol: XR Left knee. Views: 1 or 2 views. COMPARISON: CR Knee, complete 08/11/2018 1:37 AM FINDINGS: Bones/joints: No acute fracture or dislocation is identified. The medial compartment is mildly narrowed. The patellofemoral compartment is mildly narrowed and with mild periarticular osteophyte formation. The lateral compartment demonstrates very mild periarticular osteophyte formation. An inferior patellar enthesophyte is again present. The degenerative changes appear fairly stable. The bones again appear osteopenic. Soft tissues: Mild fullness of the soft tissues in the suprapatellar region is noted. Vasculature: Atherosclerotic vascular calcifications are again present. IMPRESSION: 1. No acute fracture or dislocation identified. 2. Mild suprapatellar soft tissue fullness suggesting effusion and/or synovial hypertrophy. 3. Apparent osteopenia, as on 08/11/18. 4. Similar degenerative changes. Electronically signed by: Festus Rodriguez On 11/10/2019 14:02:39 PM
[2019-11-10 14:34] VITALS: BP 139/65
== END 2019-11-10 14:43 | disposition home or self-care (01) ==
LOC: M ED 12:28
DX: S09.90XA Unspecified injury of head, initial encounter (principal); S80.01XA Contusion of right knee, initial encounter; S80.02XA Contusion of left knee, initial encounter; W10.8XXA Fall (on) (from) other stairs and steps, initial encounter; Y92.019 Unspecified place in single-family (private) house as the place of occurrence of the external cause; Y93.9 Activity, unspecified; M85.88 Other specified disorders of bone density and structure, other site; E11.22 Type 2 diabetes mellitus with diabetic chronic kidney disease; Z99.2 Dependence on renal dialysis; G47.33 Obstructive sleep apnea (adult) (pediatric); I51.9 Heart disease, unspecified; Z88.1 Allergy status to other antibiotic agents; Z88.2 Allergy status to sulfonamides; Z88.8 Allergy status to other drugs, medicaments and biological substances; Z91.040 Latex allergy status; Z79.4 Long term (current) use of insulin; Z79.51 Long term (current) use of inhaled steroids; Z79.899 Other long term (current) drug therapy; Z79.01 Long term (current) use of anticoagulants

== ENCOUNTER → 2019-12-10 | Outpatient (REF) | payer MEDICARE | LOC: M LAB REF 16:48 | PROVIDERS: ATTEND Internal Medicine Nephrology | DX: N39.0 Urinary tract infection, site not specified (principal) ==

== ENCOUNTER → 2020-02-26 | Outpatient (CLI) | payer MEDICARE ==
[~2020-02-26] MED LIST changes: +ISOVUE-300 61% 50ML VIAL As Ordered ONE; +LIDOCAINE 1% MDV 20ML VIAL As Ordered ONE; -LISI-538 PO; +LISI10TA22 PO; -LISI10TA4 PO; +LISI20TA33 PO; +MIDAZOLAM INJ 2MG/2ML VIAL (J2250 PER 1MG) As Ordered ONE; +fentaNYL 100 MCG/2 ML INJECTION (J3010) As Ordered ONE
--- NOTE | 2020-02-26 13:58 | ROOPDOC ---
[facility] [place] Report Of Operation Report of Operation DATE OF PROCEDURE: 02/26/20 PREPROCEDURE DIAGNOSES: End-stage renal disease with difficulty with cannulation right brachial axillary graft and increased venous pressures POSTPROCEDURE DIAGNOSES: Same PROCEDURE: 1. Ultrasound-guided access right brachial axillary graft 2. Right upper extremity fistulogram and central venogram 3. Angioplasty right AV graft and venous anastomosis with 7 x 100 [place] balloon 4. Angioplasty right AV graft, axillary vein, subclavian vein into SVC with 8 x 200 Conyers balloon 5. Angioplasty right axillary vein with 8 x 20 cutting balloon 6. Completion venograms SURGEON: Familia Aleman MD ANESTHESIA: Local anesthesia 2 mL lidocaine. Moderate intravenous conscious sedation was administered by Dr. Aleman. The patient was independently monitored by registered nurse assigned at the Department of radiology using automated blood pressure, EKG, and pulse oximetry. The detailed sedation record is permanently stored in the hospital information system. The following is a brief sedation record: Start time 12:57, stop time 13:36, Versed 1 mg IV, fentanyl 50 g IV. CONTRAST: 28 mL Isovue-300 INDICATION FOR PROCEDURE: Ms. Duran is a very pleasant 69-year-old patient with end-stage renal disease currently having increased venous pressures and difficulty with cannulation in her right brachiocephalic AV graft. Risks benefits and alternatives to a right upper extremity fistulogram potential intervention were explained to the patient and she is agreeable to proceed. Informed consent was obtained. INTERPRETATION: 1. The AV anastomosis is widely patent on ultrasound. Images were saved. 2. The graft is widely patent but there is a focal stenosis in an area of fr equent access near the AV anastomosis, approximately 70% stenotic, and widely patent outflow, with the central veins widely patent. 3. After angioplasty of the graft with a 7 x 100 Conyers balloon, there is definitely an improvement in flow throughout and the outflow from the graft is dramatically improved, but still we note some residual stenosis and pulsatility, so I suspect there may be stenoses not readily visualized with fistulogram. 4. After angioplasty of the graft and the outflow back to the central system with an 8 x 200 Conyers balloon, we saw a definite improvement flow through the graft and at the graft axillary and venous anastomosis, and we noted a tight stenosis in the mid axillary vein that was difficult to appreciate initially on her first images. No extravasation noted. 5. After angioplasty of the axillary vein with an 8 x 20 cutting balloon, there is widely patent inflow through the vein and an excellent thrill in the graft. No extravasation was noted. REPORT OF OPERATION: Patient was brought to the angiographic suite in stable condition. Her right upper extremity was prepped and draped in sterile fashion. A timeout was performed. Local anesthesia was administered to skin and subcutaneous tissue near the AV anastomosis over the graft. Ultrasound was used to examine the AV anastomosis in the graft. Please interpretation above. We then accessed the graft and antegrade fashion with a microneedle under ultrasound guidance. A wire was passed through this access and the needle was removed. A 4 [place] sheath was placed and flushed with saline. Fistula grams and central venograms were performed. Please see interpretation above. We then advanced a Glidewire into the central system in the IVC under fluoroscopic guidance. We changed the sheath for some [place] sheath. We first angioplasty across the graft with a 7 x 100 Conyers balloon for three-minute inflations, please see inte rpretation for post angioplasty above. We exchange the splint for an 8 x 200 balloon to make sure there was no other outflow obstruction that we were missing on her initial imaging. With the sensation, the balloon easily inflated through the graft and the graft venous outflow anastomosis, but there was a tight waist on the balloon in the mid axillary vein, the central veins otherwise seemed widely patent with the balloon. After three-minute inflations, venogram confirmed there was no extravasation there was still good flow through the fistula, but still a little bit of pulsatility. We therefore exchange the wire in the balloon for an O18 Glidewire advantage and an 8 x 20 cutting balloon. This was advanced for several inflations across the stenosis in the axillary vein, and following this there was widely patent inflow through the axillary vein with no extravasation noted. There was no longer any pulsatility in the graft an excellent thrill was noted. We then placed a [id number] Prolene suture at the sheath site and removed the sheath and secured the suture. Pressure was held and sterile dressings were applied. Good hemostasis was noted. We marked the graft on the skin to help with access. The patient was then taken to recovery in stable condition. She tolerated the procedure and the sedation well. ESTIMATED BLOOD LOSS: Approximately 5 mL. COMPLICATIONS: None. PLAN: It is okay to use the fistula for dialysis. It's okay to resume all home medications including Plavix, and resume her diet. We encourage the patient to let us know if she is having any further issues with dialysis. We appreciate the opportunity to participate in the care of this patient. FAMILIA ALEMAN MD Feb 26, 2020 13:58
[2020-02-26 14:15] VITALS: BP 128/56
== END ==
LOC: M IRPRO 11:11
PROVIDERS: ATTEND Surgery Vascular Surgery
DX: T82.598A Other mechanical complication of other cardiac and vascular devices and implants, initial encounter (principal); N18.6 End stage renal disease; I12.0 Hypertensive chronic kidney disease with stage 5 chronic kidney disease or end stage renal disease; E10.22 Type 1 diabetes mellitus with diabetic chronic kidney disease; E66.9 Obesity, unspecified; G47.33 Obstructive sleep apnea (adult) (pediatric); J45.909 Unspecified asthma, uncomplicated; X58.XXXA Exposure to other specified factors, initial encounter; Z68.41 Body mass index [BMI] 40.0-44.9, adult; Z79.4 Long term (current) use of insulin; Z79.82 Long term (current) use of aspirin; Z79.890 Hormone replacement therapy; Z79.899 Other long term (current) drug therapy; Z88.1 Allergy status to other antibiotic agents; Z88.8 Allergy status to other drugs, medicaments and biological substances; Z91.040 Latex allergy status; Z91.09 Other allergy status, other than to drugs and biological substances; Z99.2 Dependence on renal dialysis
CPT/HCPCS: 36902; 36907; 99152; 99153; C1725; C1729; C1769; C1894; J1644; J2250; J3010; Q9967

== ENCOUNTER 2020-03-01 16:24 | Emergency (ER) | payer MEDICARE ==
[~2020-03-01 16:24] MED LIST changes: -ISOVUE-300 61% 50ML VIAL As Ordered ONE; -LIDOCAINE 1% MDV 20ML VIAL As Ordered ONE; -MIDAZOLAM INJ 2MG/2ML VIAL (J2250 PER 1MG) As Ordered ONE; -fentaNYL 100 MCG/2 ML INJECTION (J3010) As Ordered ONE
[2020-03-01] MEDS ORDERED: ACETAMINOPHEN TAB 650MG DOSE (2X325MG) PO ONE (16:45)
[2020-03-01 17:08] LABS: BASO # 0.1 10^3/uL (0.0-0.2); BASO % 0.7 % (0.0-1.0); EOS # 0.2 10^3/uL (0.0-0.5); EOS % 1.7 % (0.0-3.0); HEMATOCRIT 36.5 % (36.0-47.0); HEMOGLOBIN 11.4 g/dl (12.0-15.5); LYMPH # 1.4 10^3/uL (1.5-5.0); LYMPH % 11.7 % (24.0-44.0); MEAN CORPUSCULAR HEMOGLOBIN 29.7 pg (27.0-33.0); MEAN CORPUSCULAR HGB CONC 31.2 g/dl (32.0-36.5); MEAN CORPUSCULAR VOLUME 95.1 fl (80.0-96.0); MONO % 8.1 % (0.0-5.0); NEUTROPHILS # 9.1 10^3/uL (1.5-8.5); NEUTROPHILS % 77.3 % (36.0-66.0); PLATELET COUNT, AUTOMATED 304 10^3/uL (150-450); RED BLOOD COUNT 3.84 10^6/uL (4.00-5.40); WHITE BLOOD COUNT 11.8 10^3/uL (4.0-10.0)
--- NOTE | 2020-03-01 17:13 | REP ---
INDICATION: DYSPNEA/COUGH. COMPARISON: 08/07/2019 TECHNIQUE: Portable FINDINGS: The technique utilized in obtaining the radiograph has magnified the cardiac silhouette and accentuated the interstitial markings. There is evidence of mild cardiomegaly accentuated by technique. There are chronic fibrotic changes seen particularly in the lung bases and left greater than right status quo. No acute patchy parenchymal opacities or pleural effusions have developed. There is no change in the osseous structures. IMPRESSION: No evidence of acute disease or significant change compared to the prior exam. <Electronically signed by Jayant Jordan > 03/01/20 [id number]
[2020-03-01 17:19] LABS: INR 0.91; PROTHROMBIN TIME 12.4 SECONDS (12.5-14.3)
[2020-03-01 17:43] LABS: RSV AMPLIFICATION NEGATIVE (NEGATIVE)
[2020-03-01 17:52] LABS: ALBUMIN 3.3 GM/DL (3.2-5.2); ALT/SGPT 52 U/L (12-78); BILIRUBIN,DIRECT < 0.1 MG/DL (0.0-0.2); BILIRUBIN,TOTAL 0.5 MG/DL (0.2-1.0); BLOOD UREA NITROGEN 23 MG/DL (7-18); CALCIUM LEVEL 8.7 MG/DL (8.8-10.2); CARBON DIOXIDE LEVEL 35 MEQ/L (21-32); CHLORIDE LEVEL 97 MEQ/L (98-107); CK-MB VALUE MASS 2.3 NG/ML (<3.6); CPK CREATINE PHOSPHOKINASE 144 U/L (26-192); CREATININE FOR GFR 2.22 MG/DL (0.55-1.30); GLOMERULAR FILTRATION RATE 23.2 (>39); GLUCOSE, FASTING 125 MG/DL (70-100); NT-PRO BNP 4311 PG/ML (<125); POTASSIUM SERUM 5.1 MEQ/L (3.5-5.1); SODIUM LEVEL 135 MEQ/L (136-145); THYROXINE (T4) 11.6 UG/DL (4.5-12.0); TOTAL PROTEIN 7.2 GM/DL (6.4-8.2); TROPONIN I < 0.02 NG/ML (< 0.10)
[2020-03-01 20:02] LABS: CK-MB VALUE MASS 2.1 NG/ML (<3.6); CPK CREATINE PHOSPHOKINASE 77 U/L (26-192); MB/CK RELATIVE INDEX 2.73 (< OR =4); TROPONIN I < 0.02 NG/ML (< 0.10)
[2020-03-01 22:30] VITALS: BP 139/64
--- NOTE | 2020-03-02 08:17 | ECGEPIP ---
[facility] - ED Test Date: 2020-03-01 Pat Name: MARYBETH HERNADEZ Department: Room: - Gender: Female Policy Checker: NELSON : 1950 Requested By: SUZY GIRALDO Order Number: [id number] Reading MD: Sterling Arriaga Measurements Intervals [place] Rate: 58 P: 67 KS: 168 QRS: -2 QRSD: 141 T: 117 QT: 469 QTc: 463 Interpretive Statements SINUS BRADYCARDIA LEFT BUNDLE BRANCH BLOCK SIMILAR TO PRIOR ON SAME DATE Electronically Signed on 03-02-2020 8:17:37 EST by Sterling Arriaga
--- NOTE | 2020-03-02 08:17 | ECGEPIP ---
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
== END 2020-03-01 20:40 | disposition home or self-care (01) ==
LOC: M ED 16:24 → EDBD 16:24 → M ED 20:40
DX: R07.89 Other chest pain (principal); R05 Cough; R06.02 Shortness of breath; R94.31 Abnormal electrocardiogram [ECG] [EKG]; E11.9 Type 2 diabetes mellitus without complications; I12.0 Hypertensive chronic kidney disease with stage 5 chronic kidney disease or end stage renal disease; Z99.2 Dependence on renal dialysis; I25.2 Old myocardial infarction; E78.5 Hyperlipidemia, unspecified; K21.9 Gastro-esophageal reflux disease without esophagitis; Z88.1 Allergy status to other antibiotic agents; Z88.8 Allergy status to other drugs, medicaments and biological substances; Z88.6 Allergy status to analgesic agent; Z79.899 Other long term (current) drug therapy; Z79.4 Long term (current) use of insulin; Z79.51 Long term (current) use of inhaled steroids

== ENCOUNTER 2020-04-02 10:44 | Emergency (ER) | payer MEDICARE ==
[~2020-04-02] VITALS: Ht 142.2 cm; Wt 86.8 kg
[2020-04-02] MEDS ORDERED: DEXTROSE 50% 50 ML SYRINGE IV STA (11:13)
--- NOTE | 2020-04-02 11:45 | REP ---
INDICATION: hypoglycemia. COMPARISON: 03/01/2020. TECHNIQUE: SINGLE PORTABLE AP VIEW OF THE CHEST WAS PERFORMED. FINDINGS: Stable interstitial fibrotic change is noted left greater than right. There is left pleural thickening unchanged. There is no definite superimposed acute infiltrate. The heart and mediastinum are unchanged. IMPRESSION: NO ACUTE PULMONARY DISEASE.Stable chronic findings. <Electronically signed by Ronny Garza > 04/02/20 0062
[2020-04-02 11:46] LABS: BASO # 0.1 10^3/uL (0.0-0.2); BASO % 0.6 % (0.0-1.0); EOS # 0.3 10^3/uL (0.0-0.5); EOS % 2.4 % (0.0-3.0); HEMATOCRIT 35.5 % (36.0-47.0); LYMPH # 1.3 10^3/uL (1.5-5.0); MEAN CORPUSCULAR HEMOGLOBIN 30.1 pg (27.0-33.0); MONO # 0.9 10^3/uL (0.0-0.8); MONO % 8.4 % (2.0-8.0); NEUTROPHILS # 8.1 10^3/uL (1.5-8.5); NEUTROPHILS % 76.1 % (36.0-66.0); PLATELET COUNT, AUTOMATED 284 10^3/uL (150-450); RED BLOOD COUNT 3.66 10^6/uL (4.00-5.40); WHITE BLOOD COUNT 10.6 10^3/uL (4.0-10.0)
[2020-04-02] MEDS ORDERED: INSU100I16 SUBQ (12:14)
--- OUTSIDE RECORDS SUMMARY | 2020-04-02 12:18 | CCD | Continuity of Care Document ---
Author Author Barbie ESQUIVEL PA Organization Unknown Address [id number] [place] [address] [place] [address] Phone [phone] Care Team Providers Care Visual Basic Programmer Name Role Phone Aimee Willard MD AUTM [phone] Scar Marcial MD AUTM [phone] Shweta Harry RN ANP AUTM [phone] Sita Aleman MD AUTM [phone] Coco Preston MD AUTM [phone] Problems Active Problems Provider Date Preoperative cardiovascular examination ANDREW Buck Onset: 01/11/2019 Complete atrioventricular block ANDREW Buck Onset: 01/11/2019 Electrocardiogram abnormal ANDREW Buck Onset: 01/11 Dietary management surveillance ANDREW Buck Onset: 01/11/2019 Atherosclerotic heart disease of [place] coronary arter y without angina pectoris ANDREW Buck Onset: 01/11/2019 Hypertensive heart disease without heart failure ANDREW Braxton Onset: 01/11/2019 Obesity ANDREW Ronquillo Onset: 03/13/2020 Social History Type Date Description Comments Sex Unknown ETOH Use Does not consume alcohol Tobacco Use Start: Unknown Patient has never smoked Smoking Status Reviewed: 03/13/20 Patient has never smoked Exercise Type/Frequency Walks sporadically Exercise Type/Frequency Does housework sporadica lly Exercise Limitations Fatigue Exercise Limitations Shortness Of Breath Allergies, Adverse Reactions, Alerts Active Allergies Reaction Severity Comments Date Cephalosporins rash 05/31/2018 Nitrofurantoin rash 05/31/2018 Gatifloxacin rash 05/31/2018 Latex rash 05/31/2018 Tramadol rash/swelling 05/31/2018 Chlorhexidine 03/12/2020 Medications Active Medications SIG Qnty Indications Ordering Provide r Date Ipratropium [place] 0.02% Solution 2 sprays into each nostril twice daily Manpreet Preston MD 08/27/2019 Lantus Solostar 100U nit/ML Solution Pen-Inject as directed by nephrology Scar Marcial MD 08/27/2019 Humalog Kwikpen 100U nit/ML Solution Pen-Inject inject as directed per sliding scale Scar Phan MD 08/27/2019 Loperamide HCL 2mg Capsules 1 by mouth four times a day as needed Unknown 05/30 Glucose 4gm Chewtabs 1 tab by mouth as needed Unknown 05/30/2018 Nitroglycerin 0.4mg Tablets Sub 1 tab sl every 5 min times 3 doses as needed chest disc U nknown 05/30/2018 Metoprolol Tartrate 50mg Tablets 1 by mouth twice a day Unknown 05/30/2018 Levothyroxine Sodium 112mcg Tablet s 1 by mouth every day Unknown 05/30/2018 Iron 325(65Fe) mg Tablets 1 by mouth every day Unknown 05/30/2018 Symbicort 80-4.5mcg/Act Aerosol 2 puff twice a day Unknown 05/30/[address] 1 by mouth every day Unknown 05/30/2018 Ventolin HFA 108(90Base) mcg/Act A erosol 2 puffs as needed Unknown 05/30/2018 Acetaminophen 500mg Tablets 1-2 by mouth every 6 hours as needed Unknown 05/31/19 19 Vitamin D 1000Unit Tablets 1 by mouth every day Unknown 05/30/[address] 1 by mouth every day Unknown 05/30/2018 Calcitriol 0.25mcg Capsules 1 by mouth twice a week Unknown 05/30/2018 Atorvastatin Calcium 40mg Tablets 1 by mouth every night at bedtime Unknown Immunizations Description No Information Available Vital Signs Date Vital Result Comment 03/13/2020 1:32pm Weight 190.00 lb Home Weight 191lb Height 56 inches 4'8" BMI (Body Mass Index) 42.6 kg/m2 Heart Rate 67 /min BP Systolic Sitting 118 mmHg LA, large cuff (Ra w ith Av fistula) BP Diastolic Sitting 70 mmHg LA, large cuff (Ra with Av fistula) 08/28/2019 11:44am Weight 192.00 lb Home Weight 190lb Height 56 inches 4'8" BMI (Body Mass Index) 43.0 kg/m2 Heart Rate 66 /min BP Systolic Sitting 114 mmHg large cuff, LA BP Diastolic Sitting 62 mmHg large cuff, LA Results Test Acquired Date Facility Test Result H/L Range Note CBC without Differential 03/01/2020 [facility] - not inter faced (315)- - White Blood Count 11.8 High 4.0-10.0 Red Blood Count 3.84 Low 4.00-5.40 Platelets 304 150-450 Hemoglobin 11.4 Hematocrit 36.5 BMP 03/01/2020 [facility] - not interfaced (315)- - Calcium Ser/Plasma Mass/Vol 8.7 Sodium 135 Carbon Dioxide Ser/Plasm 35 Chloride Serum/Plasma 97 Potassium 5.1 Glucose 125 High 70-100 Blood Urea Nitrogen 23 High 7-18 Creatinine 2.22 High 0.55-1.30 G F R 23.2 Laboratory test finding 03/01/2020 [facility] - not interf aced (315)- - Thyroid Stimulating Hormone 2.900 NT Probnp QN Ser/Plas 4311 Magnesium Level 2.0 1.8-2.4 Procedures Date Code Description Status 03/13/2020 22096 ECG 12-Lead Completed Medical Devices Description No Information Available Encounters Type Date Location Provider Dx Diagnosis Office Visit 03/13/2020 2:00p Main Office ANDREW Ronquillo I25 .10 Athscl heart disease [place] coronary artery w/o ang pctrs I11.9 [facility] Atrioventricular block, comp lete R94.31 Abnormal electrocardiogram [ ECG] [EKG] E66.8 Other obesity Z71.3 Dietary counseling and surve illance Assessments Date Code Description Provider 03/13/2020 I25.10 Atherosclerotic heart disease of [place] coronary artery with ANDREW Ronquillo 03/13/2020 I11.9 Hypertensive heart disease witho ut heart failure ANDREW Ronquillo 03/13/2020 I44.2 Atrioventricular block, complete ANDREW Ronquillo 03/13/2020 R94.31 Abnormal electrocardiogram [ECG] [EKG] ANDREW Ronquillo 03/13/2020 E66.8 Other obesity ANDREW Tatum Cha, se 03/13/2020 Z71.3 Dietary counseling and surveilla nce ANDREW Ronquillo Plan of Treatment Future Appointment(s):* 09/11/2020 2:30 pm - ANDREW Ronquillo at Main Office * 04/01/2020 12:00 pm - [facility] at Main Office 03/13/2020 - ANDREW Ronquillo* I25.10 Atherosclerotic heart disease of [place] coronary artery with* New Xrays:* NM Heart Myocardial Perfusion Spect Multiple Studies, Scheduled: 06/09/20 * Recommendations:* Stress SPECT ordered for further evaluation Continue aspirin, atorvastatin, and metoprolol therapy at the current dosages Patient has nitroglycerin PRN should symptoms arise. Stressed the importance of sitting down prior to use as side effects include dizziness and lightheadedness. * I11.9 Hypertensive heart disease without heart failure* Recommendations:* Continue metoprolol at the current dosage Advised patient to please monitor blood pressures at home and to alert our office with readings >140/>90 * I44.2 Atrioventricular block, complete* Recommendations:* No further evaluation needed at this time * R94.31 Abnormal electrocardiogram [ECG] [EKG]* Recommendations:* No further evaluation is needed at this time. * E66.8 Other obesity* Recommendations:* Recommended for patient to follow a more whole food diet. Advised patient to avoid overly processed foods and packaged foods. Advised patient to avoid sodas, juices and other liquid calories. Recommended at least 30 minutes of exercise 3 days a week. * Z71.3 Dietary counseling and surveillance* Recommendations:* Recommended for patient to follow a more whole food diet. Advised patient to avoid overly processed foods and packaged foods. Advised patient to avoid sodas, juices and other liquid calories. Recommended at least 30 minutes of exercise 3 days a week. * All * Follow up:* Follow up in 6 months Functional Status Functional Condition Comment Date Status Requires assistance with ambulating uses wheeled walke r when out of the house, uses a can when at home Active Independent with bathing Active Independent with dressing Active Independent with feeding Active Independent with grooming Active Independent with standing Active Independent with toileting Activ e Mental Status Description No Information Available Referrals Description No Information Available
--- OUTSIDE RECORDS SUMMARY | 2020-04-02 12:18 | CCD | Continuity of Care Document ---
Author Author Barbie Preston M.D. Organization Unknown Address [address] [address] Phone [phone] Care Team Providers [employer] Studio Sales Associate Name Role Phone Benson Nelson MD AUTM [phone] Mehreen Weinstein AUTM [phone] Jaron Montano MD AUTM [phone] Coco Preston MD AUTM [phone] Problems Active Problems Provider Date Type 2 diabetes mellitus Sonam Ledbetter D.O. Onset: 0 05/28/2011 Chronic kidney disease stage 3 Sonam Ledbetter D.O. On set: 05/28/2011 Chronic diastolic heart failure Sonam Ledbetter D.O. O nset: 05/28/2011 Hyperlipidemia Sonam Ledbetter D.O. Onset: 2011 Benign essential hypertension Sonam Ledbetter D.O. Ons et: 05/28/2011 Type 2 diabetes mellitus Sonam Ledbetter D.O. Onset: 0 05/28/2011 Pure hypercholesterolemia Sonam Ledbetter D.O. Onset: 05/28/2011 Hypothyroidism Sonam Ledbetter D.O. Onset: 2011 Social History Type Date Description Comments Sex Unknown ETOH Use Denies alcohol use Tobacco Use Start: Unknown Patient has never smoked Allergies, Adverse Reactions, Alerts Active Allergies Reaction Severity Comments Date Keflex,Tequin,Macrobid rash 10/23 Latex Allergy 09/11/2012 TeQuin hives 03/03/2017 Macrobid hives 03/03/2017 Medications Active Medications SIG Qnty Indications Ordering Provide r Date Humalog Kwikpen 100U nit/ML Solution Pen-Inject 16 units sq before breakfast; 20 units s q before lunch and supper; MDD 60 units 45ml Coco Preston M.D. 01/22/20 20 Calcitriol 0.25mcg Capsules 2 tabs/d 4x/wk (Not HD) Coco Preston M.D. 01/22/20 20 Magnesium 500mg Tablets 1 by mouth qd Coco Preston M.D. 01/22/2020 Capsacin Cream OTC prn Coco Preston M.D. 01/22/2020 Levothyroxine Sodium 125mcg Tablet s take 1 tablet daily before breakfast on an empty stomach 90tabs Coco Preston M.D. 10/03/2019 Lantus Solostar 100U nit/ML Solution Pen-Inject inject 40 units under the skin every morning 15units Coco Preston M.D. 10/02/2019 Ipratropium [place] 0.03% Solution 1-2 sprays each nostril 2-3x/day as needed 30ml Coco Preston M.D. 08/14/2019 Clopidogrel Bisulfate 75mg Tablets 1 by mouth every day 90tabs Coco Preston M.D. 05/10/19 20 Trulicity 1.5mg/0.5ML Solution Pen -Inject inject 0.5ml once a week 6ml Coco Preston M.D. 05/10/2019 Lopressor 50mg Tablets 1 PO bid (Please Deliver) 180tabs Mehreen Weinstein, JOE 05/23/2018 Sanaexperttouch Ultra 2 w/Device Kit test twice a day and as directed e11.65 1units Mehreen Weinstein, JOE 02/14/2018 Onetouch Ultra Blue Strips use twice daily to check blood sugar dx e11.65 200units Mehreen Hernandez icer, ANP 02/14/2018 Onetouch Ultrasoft Lancets Misc test twice a day e11.65 200units Mehreen Weinstein, ANP 02/14/19 19 Cervical Collar/Soft Foam-Standard/Mediu m Misc wear as directed 1units Mehreen Weinstein, BANNER Walker With Wheels Misc use daily with seat and brakes. dx: m19.9 1units Mehreen Weinstein, ANP 07/07/2017 BD Pen Needle/Sulma/Ultra Fine/32G X 4mm 32G X 4 mm Misc 4 times a day 300units Mehreen Weinstein, BANNER 2016 Pen Duncan 31G X 6 mm Misc as dir 4/day 210units Mehreen Weinstein, ANP 01/11/2017 Ferrous Gluconate 324(37.5Fe) mg T ablets 1 by mouth every day 30tabs Adarsh Florez MD 017 Ventolin HFA 108(90Base) mcg/Act A erosol 2 puffs four times a day as needed 54gm Coco montgomery M.D. 12/12/2014 Nitrostat 0.4mg Tablets Sub one under tongue every 5 minutes x 3 as needed for chest discomfort 25tabs Mehreen Weinstein, BANNER 11/25/2014 Atorvastatin Calcium 40mg Tablets Take One Tablet By Mouth Every Day 90tabs ANDREW Thao JR 04/19/2014 Insulin Syringe/Needle 28G X 1/2" 1 ML Misc useQID Or as Directed dxE11.9 400units Mehreen bateman, BANNER 11/12/2013 Glucose 4gm Chewtabs chew 4 tablets as needed for low sugar 30units Mehreen Weinstein, BANNER 2012 Unifine Pentips [id number] 29G X 12m m Misc use bid or as directed 250.00 100units Sonam moses, D.OKitty 01/12/[address] take one capsule by mouth once daily 90caps Mehreen Weinstein, BANNER 04/24/2010 Symbicort 160-4.5mcg/Act Aerosol 2 puff twice a day 18gm Mehreen Weinstein, ANP Aspirin Adult Low Dose 81mg Tablet s DR 1 by mouth every day Unknown Vitamin D-1000 Maximum Strength 1000Unit Tablets 1 by mouth every day Unknown 0 000 Acetaminophen Extra Strength 500mg Tablets 2 by mouth three times a day for pain Unk nown Loperamide HCL 2mg Capsules 1 by mouth every day as needed Unknown Torsemide 20mg Tablets 1 by mouth four times a week Unknown Medications Administered in Office Medication SIG Qnty Indications Ordering Provider Date Administration Of Flu Vaccine Inj ection Coco Preston M.D. 11/13/19 20 Immunization Adminstration,1 Vaccine/Tox oid Injection Mehreen Weinstein, ANP 019 Administration Of Flu Vaccine Inj ection Sonam Ledbetter D.O. 11/22 Administration Of Flu Vaccine Inj ection Sonam Ledbetter D.O. 12/04 Administration Of Flu Vaccine Inj ection Sonam Ledbetter D.O. 11/29 Administration Of Flu Vaccine Inj ection Sonam Ledbetter D.O. 11/18 Administration Of Flu Vaccine Inj ection Mehreen Weinstein, ANP 11/18/2010 Administration Of Flu Vaccine Inj ection Sonam Ledbetter D.O. 11/25 Administration Of Flu Vaccine Inj ection Sonam Ledbetter D.O. 12/09 Administration Of Flu Vaccine Inj ection Sonam Ledbetter D.O. 12/24 Immunizations CPT Code Status Date Vaccine Lot # [id number] Given 11/13/2019 Influenza Vaccin e Quadrivalent Preser/Antibiotic Free Im Use [id number] Given 12/26/2018 Adacel- Tetanus Diphtheria P ertussis (Age64 & Under) [id number] 87285 Given 10/12/2017 Pneumovax 23 [id number] U-PneuC Given 10/05/2017 Prevnar 13 U-Flu Given 03/25/2017 Influenza,Unspecified U-PneuC Given 03/12/2015 Prevnar 13 [id number] Given 11/22/2014 Fluvirin Virus Vaccine 16730 01 Q2037 Given 12/04/2013 Fluvirin Virus Vaccine 96207 01 Q2037 Given 11/29/2012 Fluvirin Virus Vaccine Q2037 Given 11/19/2011 Fluvirin Virus Vaccine 20956 Given 11/19/2011 Pneumovax 23 [id number] Q2037 Given 11/18/2010 Fluvirin Virus Vaccine 25110 01 43628 Given 11/25/2009 Influenza Virus Vaccine 39398 Given 12/09/2008 Influenza Virus Vaccine 27908 Given 12/25/2007 Influenza Virus Vaccine 61584 Given 01/18/2006 Influenza Virus Vaccine 13221 Given 12/15/2004 Influenza Virus Vaccine 72796 Refused 10/12/2017 Zoster Vaccine 23381 Refused 10/12/2017 Shingrix Zoster Vaccine (HZV), Recombinant, Subunit, Adjuvanted Vital Signs Date Vital Result Comment 01/22/2020 1:55pm BP Systolic 130 mmHg BP Diastolic 70 mmHg Heart Rate 71 /min Height 57.5 inches 4'9.50" Weight 191.50 lb BMI (Body Mass Index) 40.7 kg/m2 11/13/2019 2:49pm BP Systolic 128 mmHg BP Diastolic 72 mmHg Heart Rate 64 /min Height 57.5 inches 4'9.50" Weight 195.00 lb O2 % BldC Oximetry 99 % BMI (Body Mass Index) 41.5 kg/m2 Results Test Acquired Date Facility Test Result H/L Range Note Cardiac Marker Panel 03/01/2020 [facility] enter [address] [place] [address] [phone] CPK Creatine Phosphokinase 77 U/L Normal 26-19 2 CK-MB Value Mass 2.1 NG/ML Normal <3.6 MB/CK Relative Index 2.73 Normal < Or =4 1 Troponin I < 0.02 NG/ML Normal < 0.10 2 CBC With Differential 03/01/2020 [facility] [address] [place] [address] [phone] White Blood Count 11.8 10 High 4.0-10.0 Red Blood Count 3.84 10 Low 4.00-5.40 Hemoglobin 11.4 g/dL Low 12.0-15.5 Hematocrit 36.5 % Normal 36.0-47.0 Mean Corpuscular Volume 95.1 fl Normal 80.0-96.0 Mean Corpuscular Hemoglobin 29.7 pg Normal 27.0-33.0 Mean Corpuscular HGB Conc 31.2 g/dL Low 32.0-36.5 Red Cell Distribution Width 15.0 % High 11.5-14.5 Platelet Count, Automated 304 10 Normal 150-450 Neutrophils % 77.3 % High 36.0-66.0 Lymph % 11.7 % Low 24.0-44.0 [place] % 8.1 % High 0.0-5.0 Eos % 1.7 % Normal 0.0-3.0 Baso % 0.7 % Normal 0.0-1.0 Immature Granulocyte % 0.5 % Normal 0-3.0 Nucleated Red Blood Cell % 0.0 % Normal 0-0 Neutrophils # 9.1 10 High 1.5-8.5 Lymph # 1.4 10 Low 1.5-5.0 [place] # 1.0 10 High 0.0-0.8 Eos # 0.2 10 Normal 0.0-0.5 Baso # 0.1 10 Normal 0.0-0.2 Influenza A/B RSV Covid Amp 03/01/2020 [facility] [address] [place] [address] [phone] Influenza A Amplification NEGATIVE Normal Negati ve 3 Influenza B Amplification NEGATIVE Normal Negative 4 RSV Amplification NEGATIVE Normal Negative 5 Sars Covid-19 Amplification NEGATIVE Normal Negative 6 Prothrombin Time/Inr 03/01/2020 [facility] enter [address] [place] [address] [phone] Prothrombin Time 12.4 seconds Normal 12.5-14.3 Inr 0.91 Normal 7 Cardiac Marker Panel 03/01/2020 [facility] enter [address] [place] [id number] [phone] CPK Creatine Phosphokinase 144 U/L Normal 26-19 2 CK-MB Value Mass 2.3 NG/ML Normal <3.6 MB/CK Relative Index 1.60 Normal < Or =4 8 Troponin I < 0.02 NG/ML Normal < 0.10 9 Liver Profile 03/01/2020 [facility]ter [address] [place] [address] [phone] Ast/Sgot 56 U/L High 7-37 Alt/SGPT 52 U/L Normal 12-78 Alkaline Phosphatase 132 U/L High 45-117 Bilirubin,Total 0.5 mg/dL Normal 0.2-1.0 Bilirubin,Direct < 0.1 mg/dL Normal 0.0-0.2 Total Protein 7.2 GM/DL Normal 6.4-8.2 Albumin 3.3 GM/DL Normal 3.2-5.2 Albumin/Globulin Ratio 0.8 Low 1.2-2.2 Basic Metabolic Profile 03/01/[address] [address] [phone] Glucose, Fasting 125 mg/dL High 70-100 Blood Urea Nitrogen 23 mg/dL High 7-18 Creatinine For GFR 2.22 mg/dL High 0.55-1.30 Glomerular Filtration Rate 23.2 Low >39 1 0 Sodium Level 135 mEq/L Low 136-145 Potassium Serum 5.1 mEq/L Normal 3.5-5.1 11 Chloride Level 97 mEq/L Low 98-107 Carbon Dioxide Level 35 mEq/L High 21-32 Anion Gap 3 mEq/L Low 8-16 Calcium Level 8.7 mg/dL Low 8.8-10.2 Laboratory test finding 03/01/[address] [address] [phone] NT-Pro BNP 4311 pg/mL High <125 Thyroxine (T4) 11.6 g/dL Normal 4.5-12.0 Thyroid Stimulating Hormone 2.900 uIU/ML Normal 0.358-3.740 Magnesium Level 2.0 mg/dL Normal 1.8-2.4 Laboratory test finding 02/26/[address] [address] [phone] Bedside Glucose 161 mg/dL High 83-110 12 A1c 10/02/2019 [facility] Exhibition Designer: [place] [address] [phone] Hba1c 9.9 g/dL High 4.8 - 5.6 13 Est Avg Glucose 237 mg/dL High 60 - 110 Laboratory test finding 10/02/2019 [facility] Exhibition Designer: [place] [address] [phone] Thyroid Stimulating Hormone 4.60 uIU/mL High 0.3 6 - 3.74 1 DIAGNOSIS CRITERIA MMB ng/ml Relative Index (RI) NON-AMI < or = 5 N/A DESAI ZONE > 5 < or = 4 AMI > 5 > 4 2 Troponin I Reference Interva l for Siemens [place] LOCI: 99th Percentile= 0.00-0.045 ng/ml Risk Stratification: <= 0.10 ng/ml Decreased Risk for Adverse Clinical Events. 0.10-1.50 ng/ml Increased Risk for Adv erse Clinical Events. Evaluation of additional criterion and/or repeat testing in 2-6 hours is suggested to rule out myocardial damage. >= 1.50 ng/ml Indicative of Myocardial Injury. 3 Negative results do not prec lude influenza or RSV virus infection and should not be used as the sole basis for treatment or other patient management decisions. 4 Negative results do not prec lude influenza or RSV virus infection and should not be used as the sole basis for treatment or other patient management decisions. 5 Negative results do not prec lude influenza or RSV virus infection and should not be used as the sole basis for treatment or other patient management decisions. 6 A false negative result may occur if a specimen is improperly collected, transported or handled. False negative results may also occur if inadequate numbers of organisms are present in the specimen. As with any molecular test, mutations within the target regions of Xpert Xpress SARS-CoV-2 could affect primer and/or probe binding resulting in failure to detect the presence of virus. This test cannot rule out diseases caused by other bacterial or viral pathogens. DISCLAIMER: Testing was performed using the [employer] SARS-CoV-2 test. This test was developed and its performance characteristics determined by [employer]. This test has not been FDA cleared or approved. This test has been authorized by FDA under an Emergency Use Authorization (EUA). This test is only authorized for the duration of time the declaration that circumstances exist justifying the authorization of the emergency use of in vitro diagnostic tests for detection of SARS-CoV-2 virus and/or diagnosis of COVID-19 infection under section 564(b)(1) of the Act, 21 U.S.C. 360bbb-3(b)(1), unless the authorization is terminated or revoked sooner. 7 THERAPUTIC HUMAN INR VALUES INDICATIONS NORMAL RANGES PROPHYLAXIS/TREATMENT OF: VENOUS THROMBOSIS 2.0-3.0 PULMONARY EMBOLISM 2.0-3.0 PREVENTION OF SYSTEMIC EMBOLISM FROM: TISSUE HEART VALVES 2.0-3.0 ACUTE MYOCARDIAL INFARCTION 2.0-3.0 VALVULAR HEART DISEASE 2.0-3.0 ATRIAL FIBRILLATION 2.0-3.0 MECHANICAL VALVES(HIGH RISK) 2.5-3.5 RECURRENT MYOCARDIAL INFARCTION 2.5-3.5 8 DIAGNOSIS CRITERIA MMB ng/ml Relative Index (RI) NON-AMI < or = 5 N/A DESAI ZONE > 5 < or = 4 AMI > 5 > 4 9 Troponin I Reference Interva l for [employer] [place] LOCI: 99th Percentile= 0.00-0.045 ng/ml Risk Stratification: <= 0.10 ng/ml Decreased Risk for Adverse Clinical Events. 0.10-1.50 ng/ml Increased Risk for Adv erse Clinical Events. Evaluation of additional criterion and/or repeat testing in 2-6 hours is suggested to rule out myocardial damage. >= 1.50 ng/ml Indicative of Myocardial Injury. 10 Units are mL/min/1.73 m2 Chronic Kidney Disease Staging per NKF: Stage I & II GFR >=60 Normal to Mildly Decreased Stage III GFR 30-59 Moderately Decreased Stage IV GFR 15-29 Severely Decreased Stage V GFR <15 Very Little GFR Left ESRD GFR <15 on SURVEY WORKERS SUPERVISOR 11 Testing was performed on a h emolysed specimen. Suggest recollection of specimen for more accurate test results. 12 RN Notified Nurse Notified 13 Lab Result Notes: Pre-Diabetes 5.7 - 6.4 % Diabetes = or > 6.5% Procedures Date Code Description Status 05/04/2019 [id number] Colonoscopy Completed 05/11/2016 [id number] Mammogram Completed 04/17/2015 [id number] Diabetic Retinal Eye Exam [facility] 03/18/2015 [id number] Mammogram Completed 10/16/2014 [id number] Diabetic Retinal [facility] Exam [facility] 06/12/2014 [id number] Diabetic Retinal [facility] 12/11/2013 [id number] Mammogram Completed 06/11/2013 [id number] Diabetic Retinal Eye Exam [facility] 12/11/2012 [id number] Diabetic Retinal Eye Exam [facility] 07/12/2012 [id number] Mammogram Completed 06/09/2012 [id number] Diabetic Retinal Eye Exam [facility] 11/16/2011 [id number] Diabetic Retinal Eye Exam [facility] 06/16/2011 [id number] Mammogram Completed 05/17/2011 [id number] Diabetic Retinal Eye Exam [facility] 11/13/2010 [id number] Diabetic Retinal Eye Exam [facility] 03/26/2010 [id number] Diabetic Retinal Eye Exam [facility] 01/10/2008 [id number] Mammogram Completed 01/10/2008 [id number] Bone Mineral Density Test [facility] 03/20/2002 [id number] Colonoscopy Completed Medical Devices Description No Information Available Encounters Type Date Location Provider Dx Diagnosis Office Visit 01/22/2020 2:30p [facility] Preston M.D. I12.0 Hyp chr kidney disease w sta ge 5 chr kidney disease or Esrd N18.6 End stage renal disease I25.10 Athscl heart disease of [place] coronary artery w/o ang pctrs E03.9 Hypothyroidism, unspecified K21.9 Gastro-esophageal reflux dis ease without esophagitis J45.909 Unspecified asthma, uncompli cated E11.65 Type 2 diabetes mellitus wit h hyperglycemia I50.32 Chronic diastolic (congestiv e) heart failure J30.9 Allergic rhinitis, unspecifi ed M19.90 Unspecified osteoarthritis, unspecified site Z13.89 Encounter for screening for other disorder Office Visit 11/13/2019 3:00p [facility] PTiffanie Preston M.D. 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 01/22/2020 N18.6 End stage renal disease Coco Preston M.D. 01/22/2020 I25.10 Atherosclerotic hear t disease of [place] coronary artery without angina pectoris Coco Preston M.D. 01/22/2020 E03.9 Hypothyroidism, unspecified Kaci Preston M.D. 01/22/2020 K21.9 Gastro-esophageal reflux disease without esophagitis Coco Preston M.D. 01/22/2020 J45.909 Unspecified asthma, uncomplicate d Coco Preston M.D. 01/22/2020 E11.65 Type 2 diabetes mellitus with hy perglycemia Coco Preston M.D. 01/22/2020 I50.32 Chronic diastolic (congestive) h eart failure Coco Preston M.D. 01/22/2020 J30.9 Allergic rhinitis, unspecified J vinicius Preston M.D. 01/22/2020 M19.90 Unspecified osteoarthritis, unsp ecified site Coco Preston M.D. 01/22/2020 Z13.89 Encounter for screening for othe r disorder Coco Preston M.D. 11/13/2019 E11.65 Type 2 diabetes mellitus with hy perglycemia Coco Preston M.D. 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 11/13/2019 E03.9 Hypothyroidism, unspecified Kaci Pretson M.D. 11/13/2019 J45.909 Unspecified asthma, uncomplicate d Coco Preston M.D. 11/13/2019 I12.0 Hypertensive chronic kidney disease with stage 5 chronic kidney disease or end stage renal disease Coco Preston M.D. 11/13/2019 N18.6 End stage renal disease Coco Preston M.D. 11/13/2019 Z99.2 Dependence on renal dialysis Nasir Preston M.D. 11/13/2019 K21.9 Gastro-esophageal reflux disease without esophagitis Coco Preston M.D. 11/13/2019 I25.10 Atherosclerotic hear t disease of [place] coronary artery without angina pectoris Coco Preston M.D. 11/13/2019 Z23 Encounter for immunization Coco Preston M.D. 10/02/2019 R42 Dizziness and giddiness Coco Preston M.D. 10/02/2019 Z99.2 Dependence on renal dialysis Nasir Preston M.D. 10/02/2019 N18.6 End stage renal disease Coco Preston M.D. 10/02/2019 I25.10 Atherosclerotic hear t disease of [place] coronary artery without angina pectoris Coco Preston M.D. 10/02/2019 K21.9 Gastro-esophageal reflux disease without esophagitis Coco Preston M.D. 10/02/2019 E11.65 Type 2 diabetes mellitus with hy perglycemia Coco Preston M.D. 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 10/02/2019 E03.9 Hypothyroidism, unspecified Kaci Preston M.D. 10/02/2019 J45.909 Unspecified asthma, uncomplicate d Coco Preston M.D. Plan of Treatment Future Appointment(s):* 04/22/2020 2:00 pm - Coco Preston M.D. at [facility] 01/22/2020 - Coco Preston M.D.* I12.0 Hypertensive chronic kidney disease with stage 5 chronic kidney disease or end stage renal disease * N18.6 End stage renal disease * I25.10 Atherosclerotic heart disease of [place] coronary artery without angina pectoris * E03.9 Hypothyroidism, unspecified * K21.9 Gastro-esophageal reflux disease without esophagitis * J45.909 Unspecified asthma, uncomplicated * E11.65 Type 2 diabetes mellitus with hyperglycemia * I50.32 Chronic diastolic (congestive) heart failure * J30.9 Allergic rhinitis, unspecified * M19.90 Unspecified osteoarthritis, unspecified site * Z13.89 Encounter for screening for other disorder * All * New Medication:* Humalog Kwikpen 100 Unit/ML - 16 units sq before breakfast; 20 units sq before lunch and supper; MDD 60 units * Calcitriol 0.25 mcg - 2 tabs/d 4x/wk (Not HD) * Magnesium 500 mg - 1 by mouth qd * Capsacin Cream OTC - prn * Comments:* 11. Diarrhea. Etiology unclear. Needs Imodium 2 times a month.12. Health Maintenance. Medicare wellness paperwork reviewed. Patient not smoking. Check list reviewed. CAGE, PHQ9. I have encouraged her to bring in her Healthcare Proxy paperwork. Cognitive screen is adequate. [facility] Preventative wellness reviewed. She is agreeable to Mammogram an order will be sent. Bone density not indicated. Will be managed by Nephrology. Vaccines are up to date except for Shingrix. This is recommended and she will pursue. Diet, exercise encouraged. Functional Status Description No Information Available Mental Status Description No Information Available Referrals Refer to Reason for Referral Status Appt Date Jaron Montano MD DIRECTOR OF BLOOD CONSULT FOR DIABETIC EYE CARE Sent [place] [facility] [place] [address] [phone]
--- OUTSIDE RECORDS SUMMARY | 2020-04-02 12:19 | CCD | Continuity of Care Document ---
Author Author Barbie HAWK PA Organization Unknown Address [address] [facility] [address] [place] [address] Phone [phone] Care Team Providers Care Delphi Programmer Name Role Phone Coco Trotter M.D. AUTM [phone] Problems Active Problems Provider Date Type 1 diabetes mellitus Patito Benito M.D. Onset: 08/20 Essential hypertension Patito Benito M.D. Onset: 017 Allergic asthma without status asthmaticus Patito Benito M.D. Onset: 08/20/2016 Epistaxis Tacho Austin MD Onset: 02/01/2017 Obstructive sleep apnea syndrome Tacho Austin MD Onset: 02/01/2017 End-stage renal disease Tacho Austin MD Onset: 8 Dyspnea Shweta Harry, A.N.P. Onset: 03/07/2014 Asthma without status asthmaticus Shweta Harry, A.N.P. Onset: 03/07/2014 History of allergy to latex Benson Nelson MD Onset: 11/17 Body mass index 30+ - obesity Benson Nelson MD Onset: 12/2010 Obesity Benson Nelson MD Onset: 11/17/2010 Allergic rhinitis Benson Nelson MD Onset: 11/17/2010 Disorder of lung Benson Nelson MD Onset: 05/04/2010 Uncomplicated moderate persistent asthma JOE Quan Onset: 09/20/2019 Social History Type Date Description Comments Sex Unknown Smokeless Tobacco Never Used Smokeless Tobacco ETOH Use Denies alcohol use Tobacco Use Reviewed: 09/20/19 Non Smoker Recreational Drug Use Denies Drug Use Smoking Status Reviewed: 09/20/19 Non Smoker Allergies, Adverse Reactions, Alerts Active Allergies Reaction Severity Comments Date Cephalosporins RASH, NUMBNESS 08/20/2016 Nitrofurantoin RASH, NUMBNESS 08/20/2016 Gatifloxacin RASH, NUMBNESS 08/20/2016 Tramadol RASH, NUMBNESS 08/20/2016 Latex RASH 08/20/2016 Rubber RASH 08/20/2016 Sulfamethoxazole / Trimethoprim 09/10/2015 Tramadol HCL Anaphylaxis, Additional Unspecified 11/18/2006 Macrobid Anaphylaxis 10/14/2006 Keflex Anaphylaxis 10/14/2006 Tequin Anaphylaxis 10/14/2006 Medications Active Medications SIG Qnty Indications Ordering Provide r Date Clopidogrel Bisulfate 75mg Tablets K51.411 Unknown 10/16/2019 CPAP Device 11cm JOE De La Garza 09/18/2019 Humalog 100Unit/ML Solution 16U In Am And 20U AT Lunch And PM Unknown Lantus Solostar 100U nit/ML Solution Pen-Inject 34 U every day Unknown Torsemide 20mg Tablets 40 mg once a day Unknown Hydrochlorothiazide 25mg Tablets 1 po qd Unknown HM Glucose 4-6GM-mg Chewtabs 4 by mouth as needed Unknown Latanoprost 0.005% Solution 1 gtt both eyes at hs Unknown Imodium A-D 2mg Tablets 1 by mouth as needed Unknown Azopt 1% Suspension 2 x daily Unknown Vitamin D3 1000Unit Tablets 1 qd Unknown Synthroid 100mcg Tablets 1 by mouth every day Unknown Glucose Tabs as needed Unknown Omeprazole 20mg Capsules DR 20 mg by mouth daily Unknown Nitrostat 0.4mg Tablets Sub p rn Unknown Metoprolol Tartrate 50mg Tablets 1 tab 2 x daily Unknown Ferrous Sulfate 325(65Fe) mg Table ts 1 by mouth once a day Unknown Symbicort 160-4.5mcg/Act Aerosol 2 puff twice a day Unknown Atorvastatin Calcium 40mg Tablets 1 daily Unknown Aspirin 81mg Tablets DR 1 by mouth every day Unknown Ventolin HFA 108(90Base) mcg/Act A erosol 2 puffs qid/prn Unknown Calcitriol 0.25mcg Capsules 0.25 mcg by mouth once a day Unknown Immunizations CPT Code Status Date Vaccine Lot # 72786 Given 12/12/2018 Afluria, Quadrivalent, 0.5ml , [facility]# [id number] 17690 Given 03/12/2015 Prevnar 13 72718 Given 11/21/2014 Influenza Virus Split 3 Yrs And Above For Intramuscular Use 89095 Given 11/21/2013 Influenza Virus Split 3 Yrs And Above For Intramuscular Use Q2036 Given 11/16/2012 Influenza Vaccine 3 Years Of Age Or Older (Flulaval) Q2036 Given 11/18/2010 Influenza Vaccine 3 Years Of Age Or Older (Flulaval) 56433 Given 12/04/2009 Influenza Virus Split 3 Yrs And Above For Intramuscular Use 74601 Given 07/23/2009 Pneumococcal PPSV23 Vital Signs Date Vital Result Comment 01/29/2020 11:45am BP Systolic 135 mmHg BP Diastolic 71 mmHg Height 56.5 inches 4'8.50" Weight 193.00 lb BMI (Body Mass Index) 42.5 kg/m2 [place] Body Weight 100 lb Weight 87.545 kg BSA (Body Surface Area) 1.76 m2 11/15/2019 1:42pm BP Systolic 165 mmHg BP Diastolic 72 mmHg Height 56.5 inches 4'8.50" Weight 192.00 lb BMI (Body Mass Index) 42.3 kg/m2 [place] Body Weight 100 lb Weight 87.091 kg BSA (Body Surface Area) 1.76 m2 Results Description No Information Available Procedures Date Code Description Status 09/20/2019 59164 Spirometry Completed Medical Devices Description No Information Available Encounters Type Date Location Provider Dx Diagnosis Office Visit 11/15/2019 1:45p [facility] Billy khalil MD K51.411 Inflammatory polyps of colon with rectal bleeding Office Visit 09/20/2019 1:30p [facility] Shweta To susane, JOE J45.909 Unspecified asthma, uncomplicated G47.33 Obstructive sleep apnea (jamir lt) (pediatric) Assessments Date Code Description Provider 11/15/2019 K51.411 Inflammatory polyps of colon wit h rectal bleeding Billy Kaplan MD 09/20/2019 J45.909 Unspecified asthma, uncomplicate d JOE Quan 09/20/2019 G47.33 Obstructive sleep apnea (adult) (pediatric) JOE Quan Plan of Treatment Future Appointment(s):* 03/24/2020 1:30 pm - JOE Quan at [facility] Functional Status Description No Information Available Mental Status Description No Information Available Referrals Description No Information Available
--- OUTSIDE RECORDS SUMMARY | 2020-04-02 12:19 | CCD | Continuity of Care Document ---
Author Author Barbie Preston M.D. Organization Unknown Address [address] [address] Phone [phone] Care Team Providers Care Patient Care Representative Name Role Phone Benson Nelson MD AUTM [phone] Mehreen Weinstein AUTM [phone] Jaron Montano MD AUTM [phone] Coco Preston MD AUTM [phone] Problems Active Problems Provider Date Type 2 [...] morning 15units Coco Preston M.D. 10/02/2019 Ipratropium [place] 0.03% Solution 1-2 sprays each nostril 2-3x/day as needed 30ml Coco Preston M.D. 08/14/2019 Clopidogrel Bisulfate 75mg Tablets 1 by mouth every day 90tabs Coco Preston M.D. 05/10/19 20 Trulicity 1.5mg/0.5ML Solution Pen -Inject inject 0.5ml once a week 6ml Coco Preston M.D. 05/10/2019 Lopressor 50mg Tablets 1 PO bid (Please Deliver) 180tabs Mehreen Weinstein, JOE 05/23/2018 [place] [employer] Ultra 2 w/Device Kit test twice a [...] day 300units Mehreen Weinstein, BANNER 2016 Pen [place] 31G X 6 mm Misc as dir [...] 30units Mehreen Weinstein, BANNER 2012 Unifine Pentips [id number] 29G X 12m m Misc use bid [...] CPT Code Status Date Vaccine Lot # [id number] Given 11/13/2019 Influenza Vaccin e Quadrivalent Preser/Antibiotic Free Im Use [id number] 08724 Given 12/26/2018 Adacel- Tetanus Diphtheria P ertussis (Age64 & Under) [id number] 37134 Given 10/12/2017 Pneumovax 23 [id number] U-PneuC Given 10/05/2017 Prevnar 13 U-Flu Given 03/25/2017 Influenza,Unspecified U-PneuC Given 03/12/2015 Prevnar 13 Q2037 Given 11/22/2014 Fluvirin Virus Vaccine 96888 01 Q2037 Given 12/04/2013 Fluvirin Virus Vaccine 03427 01 Q2037 Given 11/29/2012 Fluvirin Virus Vaccine Q2037 Given 11/19/2011 Fluvirin Virus Vaccine 10872 Given 11/19/2011 Pneumovax 23 [id number] Q2037 Given 11/18/2010 Fluvirin Virus Vaccine 55032 01 28157 Given 11/25/2009 Influenza Virus Vaccine 51485 Given 12/09/2008 Influenza Virus Vaccine 12601 Given 12/25/2007 Influenza Virus Vaccine 99058 Given 01/18/2006 Influenza Virus Vaccine 04353 Given 12/15/2004 Influenza Virus Vaccine 46153 Refused 10/12/2017 Zoster Vaccine 71745 Refused 10/12/2017 Shingrix Zoster Vaccine (HZV), Recombinant, [...] H/L Range Note Cardiac Marker Panel 03/01/2020 [facility] enter [address] [place] [address] [phone] CPK Creatine Phosphokinase 77 U/L Normal 26-19 2 CK-MB Value Mass 2.1 NG/ML Normal <3.6 MB/CK Relative Index 2.73 Normal < Or =4 1 Troponin I < 0.02 NG/ML Normal < 0.10 2 CBC With Differential 03/01/2020 [facility] [address] [place] [address] [phone] White Blood Count 11.8 10 High 4.0-10.0 [...] 36.0-66.0 Lymph % 11.7 % Low 24.0-44.0 [place] % 8.1 % High 0.0-5.0 Eos % 1.7 % Normal 0.0-3.0 Baso % 0.7 % Normal 0.0-1.0 Immature Granulocyte % 0.5 % Normal 0-3.0 Nucleated Red Blood Cell % 0.0 % Normal 0-0 Neutrophils # 9.1 10 High 1.5-8.5 Lymph # 1.4 10 Low 1.5-5.0 [place] # 1.0 10 High 0.0-0.8 Eos # 0.2 10 Normal 0.0-0.5 Baso # 0.1 10 Normal 0.0-0.2 Influenza A/B RSV Covid Amp 03/01/2020 [facility] [address] [place] [address] [phone] Influenza A Amplification NEGATIVE Normal Negati ve 3 Influenza B Amplification NEGATIVE Normal Negative 4 RSV Amplification NEGATIVE Normal Negative 5 Sars Covid-19 Amplification NEGATIVE Normal Negative 6 Prothrombin Time/Inr 03/01/2020 [facility] enter [address] [place] [address] [phone] Prothrombin Time 12.4 seconds Normal 12.5-14.3 Inr 0.91 Normal 7 Cardiac Marker Panel 03/01/2020 [facility] enter [address] [place] [id number] [phone] CPK Creatine Phosphokinase 144 U/L Normal 26-19 2 CK-MB Value Mass 2.3 NG/ML Normal <3.6 MB/CK Relative Index 1.60 Normal < Or =4 8 Troponin I < 0.02 NG/ML Normal < 0.10 9 Liver Profile 03/01/2020 [facility] [address] [place] [address] [phone] Ast/Sgot 56 U/L High 7-37 Alt/SGPT 52 U/L Normal 12-78 Alkaline Phosphatase 132 U/L High 45-117 Bilirubin,Total 0.5 mg/dL Normal 0.2-1.0 Bilirubin,Direct < 0.1 mg/dL Normal 0.0-0.2 Total Protein 7.2 GM/DL Normal 6.4-8.2 Albumin 3.3 GM/DL Normal 3.2-5.2 Albumin/Globulin Ratio 0.8 Low 1.2-2.2 Basic Metabolic Profile 03/01/[address] [address] [phone] Glucose, Fasting 125 mg/dL High 70-100 Blood [...] mg/dL Low 8.8-10.2 Laboratory test finding 03/01/[address] [address] [phone] NT-Pro BNP 4311 pg/mL High <125 Thyroxine (T4) 11.6 g/dL Normal 4.5-12.0 Thyroid Stimulating Hormone 2.900 uIU/ML Normal 0.358-3.740 Magnesium Level 2.0 mg/dL Normal 1.8-2.4 Laboratory test finding 02/26/[address] [address] [phone] Bedside Glucose 161 mg/dL High 83-110 12 A1c 10/02/2019 [facility] Truckman: [place] [address] [phone] Hba1c 9.9 g/dL High 4.8 - 5.6 13 Est Avg Glucose 237 mg/dL High 60 - 110 Laboratory test finding 10/02/2019 [facility] Truckman: [place] [address] [phone] Thyroid Stimulating Hormone 4.60 uIU/mL High 0.3 6 - 3.74 1 DIAGNOSIS CRITERIA MMB ng/ml Relative Index (RI) NON-AMI < or = 5 N/A DESAI ZONE > 5 < or = 4 AMI > 5 > 4 2 Troponin I Reference Interva l for [employer] [place] LOCI: 99th Percentile= 0.00-0.045 ng/ml Risk Stratification: [...] pathogens. DISCLAIMER: Testing was performed using the [employer] SARS-CoV-2 test. This test was developed and its performance characteristics determined by [employer]. This test has not been FDA cleared [...] 9 Troponin I Reference Interva l for [employer] [place] LOCI: 99th Percentile= 0.00-0.045 ng/ml Risk Stratification: [...] Little GFR Left ESRD GFR <15 on TRAFFIC CHIEF 11 Testing was performed on a h emolysed specimen. Suggest recollection of specimen for more accurate test results. 12 RN Notified Nurse Notified 13 Lab Result Notes: Pre-Diabetes 5.7 - 6.4 % Diabetes = or > 6.5% Procedures Date Code Description Status 05/04/2019 [id number] Colonoscopy Completed 05/11/2016 [id number] Mammogram Completed 04/17/2015 [id number] Diabetic Retinal Eye Exam [facility] 03/18/2015 [id number] Mammogram Completed 10/16/2014 [id number] Diabetic Retinal Eye Exam [facility] 06/12/2014 [id number] Diabetic Retinal Eye Exam [facility]ple [facility] 12/11/2013 [id number] Mammogram Completed 06/11/2013 [id number] Diabetic Retinal Eye Exam Comple [facility] 12/11/2012 [id number] Diabetic Retinal Eye Exam Comple [facility] 07/12/2012 [id number] Mammogram Completed 06/09/2012 [id number] Diabetic Retinal Eye Exam [facility] 11/16/2011 [id number] Diabetic Retinal Eye Exam Comple [facility] 06/16/2011 [id number] Mammogram Completed 05/17/2011 [id number] Diabetic Retinal Eye Exam Comple [facility] 11/13/2010 [id number] Diabetic Retinal Eye Exam Comple [facility] 03/26/2010 [id number] Diabetic Retinal Eye Exam Comple [facility] 01/10/2008 [id number] Mammogram Completed 01/10/2008 [id number] Bone Mineral Density Test Comple [facility] 03/20/2002 [id number] Colonoscopy Completed Medical Devices Description No Information Available Encounters Type Date Location Provider Dx Diagnosis Office Visit 01/22/2020 2:30p [facility] P.CKitty Preston M.D. I12.0 Hyp chr [...] for other disorder Office Visit 11/13/2019 3:00p [facility] PTiffanie Preston M.D. E11.65 Type 2 diabetes mellitus wit h hyperglycemia Z79.4 ui application developer (current) use of i nsulin E03.9 Hypothyroidism, [...] Encounter for immunization Office Visit 10/02/2019 2:00p [facility] PTiffanie Preston M.D. 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 01/22/2020 N18.6 End stage renal disease Coco Preston M.D. 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 11/13/2019 Z79.4 ui application developer (current) use of insul in Ccoo Preston M.D. 11/13/2019 E03.9 Hypothyroidism, unspecified Kaci Preston M.D. 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 11/13/2019 Z23 Encounter for immunization Coco Preston M.D. 10/02/2019 R42 Dizziness and giddiness Coco Preston M.D. 10/02/2019 Z99.2 Dependence on renal dialysis Nasir Preston M.D. 10/02/2019 N18.6 End stage renal disease Coco Preston M.D. 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 10/02/2019 K21.9 Gastro-esophageal reflux disease without esophagitis Coco Preston M.D. 10/02/2019 E11.65 Type 2 diabetes mellitus with hy perglycemia Coco Preston M.D. 10/02/2019 Z79.4 ui application developer (current) use of insul in Coco Preston M.D. 10/02/2019 E03.9 Hypothyroidism, unspecified Kaci Preston M.D. 10/02/2019 J45.909 Unspecified asthma, uncomplicate d Coco Preston M.D. Plan of Treatment Future Appointment(s):* 04/22/2020 2:00 pm - Coco Preston M.D. at [facility] 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
--- OUTSIDE RECORDS SUMMARY | 2020-04-02 12:19 | CCD | Continuity of Care Document ---
Author Author Barbie Preston M.D. Organization Unknown Address [address] [address] Phone [phone] Care Team Providers Care Tire Recapping Machine Operator Name Role Phone Benson Nelson MD AUTM [phone] Mehreen Weinstein AUTM [phone] Jaron Montano MD AUTM [phone] Coco Preston MD AUTM [phone] Problems Active Problems Provider Date Type 2 [...] 10/03/2019 Lantus Solostar 100U nit/ML Solution Pen-Inject 40 units sq every morning 15ml Coco montgomery M.D. 10/02/2019 Ipratropium [place] 0.03% Solution 1-2 sprays each nostril 2-3x/day as needed 30ml Coco Preston M.D. 08/14/2019 Clopidogrel Bisulfate 75mg Tablets 1 by mouth every day 90tabs Coco Preston M.D. 05/10/19 20 Trulicity 1.5mg/0.5ML Solution Pen -Inject inject 0.5ml once a week 6ml Coco Preston M.D. 05/10/2019 Lopressor 50mg Tablets 1 PO bid (Please Deliver) 180tabs Mehreen Weinstein, JOE 05/23/2018 Onetouch Ultra 2 w/Device Kit test twice a day and as directed e11.65 1units Mehreen Weinstein, JOE 02/14/2018 Onetouch Ultra Blue Strips use twice daily to check blood sugar dx e11.65 200units Mehreen Hernandez icer, ANP 02/14/2018 Onetouch Ultrasoft Lancets Misc test twice a day e11.65 200units Mehreen Weinstein, JOE 02/14/19 19 Cervical Collar/Soft Foam-Standard/Mediu m Misc wear as directed 1units Mehreen Weinstein, [facility] Walker With Wheels Misc use daily with seat and brakes. dx: m19.9 1units Mehreen Weinstein, ANP 07/07/2017 BD Pen Needle/Sulma/Ultra Fine/32G X 4mm 32G X 4 mm Misc 4 times a day 300units Mehreen Weinstein, ANP 2016 Pen [place] 31G X 6 mm Misc as dir [...] needed for chest discomfort 25tabs Mehreen Weinstein, [facility]) 11/25/2014 Atorvastatin Calcium 40mg Tablets Take One Tablet By Mouth Every Day 90tabs ANDREW Thao JR 04/19/2014 Insulin Syringe/Needle 28G X 1/2" 1 ML Misc useQID Or as Directed dxE11.9 400units Mehreen bateman, [facility]) 11/12/2013 Glucose 4gm Chewtabs chew 4 tablets as needed for low sugar 30units Mehreen Weinstein, [facility]) 2012 Unifine Pentips [id number] 29G X 12m m Misc use bid or as directed 250.00 100units Sonam moses, D.OKitty 01/12/[address] take one capsule by mouth once daily 90caps Laura Harrington 04/24/2010 Symbicort 160-4.5mcg/Act Aerosol 2 puff twice a day 18gm Mehreen Weinstein, ANP Aspirin Adult Low Dose 81mg Tablet s DR 1 by mouth every day Unknown Vitamin D-1000 Maximum Strength 1000Unit Tablets 1 by mouth every day Unknown 000 Acetaminophen Extra Strength 500mg Tablets 2 by mouth three times a day for pain Unk nown Loperamide HCL 2mg Capsules 1 by mouth every day as needed Unknown Torsemide 20mg Tablets 1 by mouth four times a week Unknown History Medications Lantus Solostar 100U nit/ML Solution Pen-Inject 34 units sq every morning 15ml Coco montgomery M.D. 08/14/2019 - 10/02/2019 Medications Administered in Office Medication SIG Qnty [...] CPT Code Status Date Vaccine Lot # [id number] Given 11/13/2019 Influenza Vaccin e Quadrivalent Preser/Antibiotic Free Im Use [id number] 48474 Given 12/26/2018 Adacel- Tetanus Diphtheria P ertussis (Age64 & Under) [id number] 34928 Given 10/12/2017 Pneumovax 23 [id number] U-PneuC Given 10/05/2017 Prevnar 13 U-Flu Given 03/25/2017 Influenza,Unspecified U-PneuC Given 03/12/2015 Prevnar 13 Q2037 Given 11/22/2014 Fluvirin Virus Vaccine 65927 01 Q2037 Given 12/04/2013 Fluvirin Virus Vaccine 53235 01 Q2037 Given 11/29/2012 Fluvirin Virus Vaccine Q2037 Given 11/19/2011 Fluvirin Virus Vaccine 04748 Given 11/19/2011 Pneumovax 23 [id number] Q2037 Given 11/18/2010 Fluvirin Virus Vaccine 15715 01 93670 Given 11/25/2009 Influenza Virus Vaccine 75043 Given 12/09/2008 Influenza Virus Vaccine 96473 Given 12/25/2007 Influenza Virus Vaccine 90095 Given 01/18/2006 Influenza Virus Vaccine 74077 Given 12/15/2004 Influenza Virus Vaccine 55138 Refused 10/12/2017 Zoster Vaccine 68918 Refused 10/12/2017 Shingrix Zoster Vaccine (HZV), Recombinant, [...] Date Facility Test Result H/L Range Note A1c 10/02/2019 [facility] Filer Helper: Dr Adarsh Florez [place], [place] [id number] [phone] Hba1c 9.9 g/dL High 4.8 - 5.6 1 Est Avg Glucose 237 mg/dL High 60 - 110 Laboratory test finding 10/02/2019 [facility] Filer Helper: Dr Adarsh Florez [place], [place] [address] [phone] Thyroid Stimulating Hormone 4.60 uIU/mL High 0.3 6 - 3.74 CBC With Differential 08/07/2019 [facility] [address] [place] [address] [phone] White Blood Count 11.3 10 High 4.0-10.0 Red Blood Count 3.32 10 Low 4.00-5.40 Hemoglobin 10.4 g/dL Low 12.0-15.5 Hematocrit 32.9 % Low 36.0-47.0 Mean Corpuscular Volume 99.1 fl High 80.0-96.0 Mean Corpuscular Hemoglobin 31.3 pg Normal 27.0-33.0 Mean Corpuscular HGB Conc 31.6 g/dL Low 32.0-36.5 Red Cell Distribution Width 14.5 % Normal 11.5-14.5 Platelet Count, Automated 349 10 Normal 150-450 Neutrophils % 80.8 % High 36.0-66.0 Lymph % 11.1 % Low 24.0-44.0 [place] % 5.3 % High 0.0-5.0 Eos % 2.0 % Normal 0.0-3.0 Baso % 0.4 % Normal 0.0-1.0 Immature Granulocyte % 0.4 % Normal 0-3.0 Nucleated Red Blood Cell % 0.0 % Normal 0-0 Neutrophils # 9.2 10 High 1.5-8.5 Lymph # 1.3 10 Low 1.5-5.0 [place] # 0.6 10 Normal 0.0-0.8 Eos # 0.2 10 Normal 0.0-0.5 Baso # 0.0 10 Normal 0.0-0.2 Laboratory test finding 08/07/2019 [facility] [address] [place] [address] [phone] Lactic Acid Sepsis Protocol 1.2 mmol/L Normal 0.4- 2.0 2 Type & Screen -Incl Blood Type,Joshua,AB SC 08/07/[address] [address] [phone] Blood Type B POSITIVE Normal AB Screen (Indirect Steph)Vis NEGATIVE Normal Cardiac Marker Panel 08/07/2019 [facility] [address] [place] [address] [phone] CPK Creatine Phosphokinase 78 U/L Normal 26-19 2 CK-MB Value Mass 2.5 NG/ML Normal <3.6 MB/CK Relative Index 3.21 Normal < Or =4 3 Troponin I < 0.02 NG/ML Normal < 0.10 4 Liver Profile 08/07/2019 [facility] nter [address] [place], [place] [id number] [phone] Ast/Sgot 24 U/L Normal 7-37 Alt/SGPT 32 U/L Normal 12-78 Alkaline Phosphatase 111 U/L Normal 45-117 Bilirubin,Total 0.3 mg/dL Normal 0.2-1.0 Bilirubin,Direct 0.1 mg/dL Normal 0.0-0.2 Total Protein 6.4 GM/DL Normal 6.4-8.2 Albumin 2.9 GM/DL Low 3.2-5.2 Albumin/Globulin Ratio 0.8 Low 1.2-2.2 Basic Metabolic Profile 08/07/2019 [facility] [address] [place] [address] [phone] Glucose, Fasting 253 mg/dL High 70-100 Blood Urea Nitrogen 67 mg/dL High 7-18 Creatinine For GFR 4.86 mg/dL High 0.55-1.30 Glomerular Filtration Rate 9.4 Low >39 5 Sodium Level 136 mEq/L Normal 136-145 Potassium Serum 5.1 mEq/L Normal 3.5-5.1 Chloride Level 102 mEq/L Normal 98-107 Carbon Dioxide Level 26 mEq/L Normal 21-32 Anion Gap 8 mEq/L Normal 8-16 Calcium Level 8.0 mg/dL Low 8.8-10.2 Laboratory test finding 08/07/2019 [place] [id number] [phone] NT-Pro BNP 3546 pg/mL High <125 6 Thyroid Stimulating Hormone 2.660 uIU/ML Normal 0.358-3.740 7 1 Lab Result Notes: Pre-Diabetes 5.7 - 6.4 % Diabetes = or > 6.5% 2 Y/N query for Sepsis Lactate Rule: Y 3 DIAGNOSIS CRITERIA MMB ng/ml Relative Index (RI) NON-AMI < or = 5 N/A DESAI ZONE > 5 < or = 4 AMI > 5 > 4 4 Troponin I Reference Interva l for ADP LOCI: 99th Percentile= 0.00-0.045 ng/ml Risk Stratification: <= 0.10 ng/ml Decreased Risk for Adverse Clinical Events. 0.10-1.50 ng/ml Increased Risk for Adv erse Clinical Events. Evaluation of additional criterion and/or repeat testing in 2-6 hours is suggested to rule out myocardial damage. >= 1.50 ng/ml Indicative of Myocardial Injury. 5 Units are mL/min/1.73 m2 Chronic Kidney Disease Staging per NKF: Stage I & II GFR >=60 Normal to Mildly Decreased Stage III GFR 30-59 Moderately Decreased Stage IV GFR 15-29 Severely Decreased Stage V GFR <15 Very Little GFR Left ESRD GFR <15 on GROUND INTELLIGENCE OFFICER 6 1251. 7 1251. Procedures Date Code Description Status 05/04/2019 [id number] Colonoscopy Completed 05/11/2016 [id number] Mammogram Completed 04/17/2015 [id number] Diabetic Retinal Eye Exam Comple randi 03/18/2015 [id number] Mammogram Completed 10/16/2014 [id number] Diabetic Retinal Eye Exam Comple randi 06/12/2014 [id number] Diabetic Retinal Eye Exam Comple randi 12/11/2013 [id number] Mammogram Completed 06/11/2013 [id number] Diabetic Retinal Eye Exam Comple [facility] 12/11/2012 [id number] Diabetic Retinal Eye Exam Comple randi 07/12/2012 [id number] Mammogram Completed 06/09/2012 [id number] Diabetic Retinal Eye Exam Comple randi 11/16/2011 392695354 Diabetic Retinal Eye Exam Comple randi 06/16/2011 [id number] Mammogram Completed 05/17/2011 [id number] Diabetic Retinal Eye Exam Comple randi 11/13/2010 [id number] Diabetic Retinal Eye Exam Comple [facility] 03/26/2010 [id number] Diabetic Retinal Eye Exam Comple [facility] 01/10/2008 [id number] Mammogram Completed 01/10/2008 [id number] Bone Mineral Density Test Comple [facility] 03/20/2002 [id number] Colonoscopy Completed Medical Devices Description No Information Available Encounters Type Date Location Provider Dx Diagnosis Office Visit 01/22/2020 2:30p [facility] Preston M.D. I12.0 Hyp chr kidney [...] for other disorder Office Visit 11/13/2019 3:00p [facility] Preston M.D. E11.65 Type 2 diabetes mellitus wit h hyperglycemia Z79.4 bed bug exterminator (current) use of i nsulin E03.9 Hypothyroidism, [...] Encounter for immunization Office Visit 10/02/2019 2:00p [facility] Preston M.D. R42 Dizziness and giddiness Z99.2 Dependence on renal dialysis N18.6 End stage renal disease I25.10 Athscl heart disease of [place] coronary artery w/o ang pctrs K21.9 Gastro-esophageal reflux dis ease without esophagitis E11.65 Type 2 diabetes mellitus wit h hyperglycemia Z79.4 custodial (current) use of i nsulin E03.9 Hypothyroidism, unspecified J45.909 Unspecified asthma, uncompli cated Office Visit 08/14/2019 8:30a [facility]itty Preston M.D. I12.0 Hyp chr kidney disease w sta ge 5 chr kidney disease or Esrd N18.6 End stage renal disease I25.10 Athscl heart disease of [place] coronary artery w/o ang pctrs K21.9 Gastro-esophageal reflux dis ease without esophagitis E11.65 Type 2 diabetes mellitus wit h hyperglycemia Z79.4 bed bug exterminator (current) use of i nsulin E03.9 Hypothyroidism, unspecified J45.909 Unspecified asthma, uncompli cated Assessments Date Code Description Provider 01/22/2020 I12.0 Hypertensive chronic kidney disease with stage 5 chronic kidney disease or end stage renal disease Coco Preston M.D. 01/22/2020 N18.6 End stage renal disease Coco Preston M.D. 01/22/2020 I25.10 Atherosclerotic hear t disease of [place] coronary artery without angina pectoris Coco Preston [...] hy perglycemia Coco Preston M.D. 11/13/2019 Z79.4 custodial (current) use of insul in Coco Preston [...] 11/13/2019 I25.10 Atherosclerotic hear t disease of [place] coronary artery without angina pectoris Coco Preston M.D. 11/13/2019 Z23 Encounter for immunization Coco Preston M.D. 10/02/2019 R42 Dizziness and giddiness Coco Preston M.D. 10/02/2019 Z99.2 Dependence on renal dialysis Nasir Preston M.D. 10/02/2019 N18.6 End stage renal disease Coco Preston M.D. 10/02/2019 I25.10 Atherosclerotic hear t disease of [place] coronary artery without angina pectoris Coco Preston M.D. 10/02/2019 K21.9 Gastro-esophageal reflux disease without esophagitis Coco Preston M.D. 10/02/2019 E11.65 Type 2 diabetes mellitus with hy perglycemia Coco Preston M.D. 10/02/2019 Z79.4 custodial (current) use of insul in Coco Preston M.D. 10/02/2019 E03.9 Hypothyroidism, unspecified Kaci Preston M.D. 10/02/2019 J45.909 Unspecified asthma, uncomplicate d Coco Preston M.D. 08/14/2019 I12.0 Hypertensive chronic kidney disease with stage 5 chronic kidney disease or end stage renal disease Coco Preston M.D. 08/14/2019 N18.6 End stage renal disease Coco Preston M.D. 08/14/2019 I25.10 Atherosclerotic hear t disease of [place] coronary artery without angina pectoris Coco Preston M.D. 08/14/2019 K21.9 Gastro-esophageal reflux disease without esophagitis Coco Preston M.D. 08/14/2019 E11.65 Type 2 diabetes mellitus with hy perglycemia Coco Preston M.D. 08/14/2019 Z79.4 bed bug exterminator (current) use of insul in Coco Preston M.D. 08/14/2019 E03.9 Hypothyroidism, unspecified Kaci Preston M.D. 08/14/2019 J45.909 Unspecified asthma, uncomplicate d Coco Preston M.D. Plan of Treatment Future Appointment(s):* 04/22/2020 2:00 pm - [facility] 01/22/2020 - Coco Preston M.D.* I12.0 Hypertensive chronic kidney disease with stage 5 chronic kidney disease or end stage renal disease * N18.6 End stage renal disease * I25.10 Atherosclerotic heart disease of [place] coronary artery without angina pectoris * E03.9 [...]
--- OUTSIDE RECORDS SUMMARY | 2020-04-02 12:19 | CCD | Continuity of Care Document ---
Author Author Barbie Preston M.D. Organization Unknown Address [address] [address] Phone [phone] Care Team Providers Care Supervisor Intermediates Name Role Phone Benson Nelson MD AUTM [phone] Mehreen Weinstein AUTM [phone] Jaron Montano MD AUTM [phone] Coco Preston MD AUTM [phone] Problems Active Problems Provider Date Type 2 [...] morning 15ml Coco montgomery M.D. 10/02/2019 Ipratropium [place] 0.03% Solution 1-2 sprays each nostril 2-3x/day [...] Misc wear as directed 1units Mehreen Weinstein, [facility] Walker With Wheels Misc use daily with seat and brakes. dx: m19.9 1units Mehreen Weinstein, ANP 07/07/2017 BD Pen Needle/Sulma/Ultra Fine/32G X 4mm 32G X 4 mm Misc 4 times a day 300units Mehreen Weinstein, ANP 2016 Pen [place] 31G X 6 mm Misc as dir [...] needed for chest discomfort 25tabs Mehreen Weinstein, [facility] 11/25/2014 Atorvastatin Calcium 40mg Tablets Take One Tablet By Mouth Every Day 90tabs ANDREW Thao JR 04/19/2014 Insulin Syringe/Needle 28G X 1/2" 1 ML Misc useQID Or as Directed dxE11.9 400units Mehreen bateman, [facility] 11/12/2013 Glucose 4gm Chewtabs chew 4 tablets as needed for low sugar 30units Mehreen Weinstein, [facility] 2012 Unifine Pentips [id number] 29G X 12m m Misc use bid [...] CPT Code Status Date Vaccine Lot # [id number] Given 11/13/2019 Influenza Vaccin e Quadrivalent Preser/Antibiotic Free Im Use [id number] 92669 Given 12/26/2018 Adacel- Tetanus Diphtheria P ertussis (Age64 & Under) [id number] 37101 Given 10/12/2017 Pneumovax 23 [id number] U-PneuC Given 10/05/2017 Prevnar 13 U-Flu Given 03/25/2017 Influenza,Unspecified U-PneuC Given 03/12/2015 Prevnar 13 Q2037 Given 11/22/2014 Fluvirin Virus Vaccine 01637 01 Q2037 Given 12/04/2013 Fluvirin Virus Vaccine 00505 01 Q2037 Given 11/29/2012 Fluvirin Virus Vaccine Q2037 Given 11/19/2011 Fluvirin Virus Vaccine 23219 Given 11/19/2011 Pneumovax 23 [id number] Q2037 Given 11/18/2010 Fluvirin Virus Vaccine 48495 01 93821 Given 11/25/2009 Influenza Virus Vaccine 76544 Given 12/09/2008 Influenza Virus Vaccine 56823 Given 12/25/2007 Influenza Virus Vaccine 50894 Given 01/18/2006 Influenza Virus Vaccine 99082 Given 12/15/2004 Influenza Virus Vaccine 36897 Refused 10/12/2017 Zoster Vaccine 71114 Refused 10/12/2017 Shingrix Zoster Vaccine (HZV), Recombinant, [...] Test Result H/L Range Note A1c 10/02/2019 [facility] Assistant Wrestling Coach: Dr Adarsh Florez [place], [place] [id number] [phone] Hba1c 9.9 g/dL High 4.8 - 5.6 1 Est Avg Glucose 237 mg/dL High 60 - 110 Laboratory test finding 10/02/2019 [facility] Assistant Wrestling Coach: Dr Adarsh Florez [place], [place] [address] [phone] Thyroid Stimulating Hormone 4.60 uIU/mL High 0.3 6 - 3.74 CBC With Differential 08/07/2019 [facility] [address] [place] [address] [phone] White Blood Count 11.3 10 High 4.0-10.0 [...] 36.0-66.0 Lymph % 11.1 % Low 24.0-44.0 [place] % 5.3 % High 0.0-5.0 Eos % 2.0 % Normal 0.0-3.0 Baso % 0.4 % Normal 0.0-1.0 Immature Granulocyte % 0.4 % Normal 0-3.0 Nucleated Red Blood Cell % 0.0 % Normal 0-0 Neutrophils # 9.2 10 High 1.5-8.5 Lymph # 1.3 10 Low 1.5-5.0 [place] # 0.6 10 Normal 0.0-0.8 Eos # 0.2 10 Normal 0.0-0.5 Baso # 0.0 10 Normal 0.0-0.2 Laboratory test finding 08/07/2019 [facility] [address] [place] [address] [phone] Lactic Acid Sepsis Protocol 1.2 mmol/L Normal 0.4- 2.0 2 Type & Screen -Incl Blood Type,Joshua,AB SC 08/07/[address] [address] [phone] Blood Type B POSITIVE Normal AB Screen (Indirect Steph)Vis NEGATIVE Normal Cardiac Marker Panel 08/07/2019 [facility] [address] [place] [address] [phone] CPK Creatine Phosphokinase 78 U/L Normal 26-19 2 CK-MB Value Mass 2.5 NG/ML Normal <3.6 MB/CK Relative Index 3.21 Normal < Or =4 3 Troponin I < 0.02 NG/ML Normal < 0.10 4 Liver Profile 08/07/2019 [facility] nter [address] [place], [place] [id number] [phone] Ast/Sgot 24 U/L Normal 7-37 Alt/SGPT 32 U/L Normal 12-78 Alkaline Phosphatase 111 U/L Normal 45-117 Bilirubin,Total 0.3 mg/dL Normal 0.2-1.0 Bilirubin,Direct 0.1 mg/dL Normal 0.0-0.2 Total Protein 6.4 GM/DL Normal 6.4-8.2 Albumin 2.9 GM/DL Low 3.2-5.2 Albumin/Globulin Ratio 0.8 Low 1.2-2.2 Basic Metabolic Profile 08/07/2019 [facility] [address] [place] [address] [phone] Glucose, Fasting 253 mg/dL High 70-100 Blood [...] mg/dL Low 8.8-10.2 Laboratory test finding 08/07/2019 [place] [id number] [phone] NT-Pro BNP 3546 pg/mL High <125 6 [...] 4 Troponin I Reference Interva l for [employer] LOCI: 99th Percentile= 0.00-0.045 ng/ml Risk Stratification: [...] Little GFR Left ESRD GFR <15 on TEAMCENTER CONSULTANT 6 1251. 7 1251. Procedures Date Code Description Status 05/04/2019 [id number] Colonoscopy Completed 05/11/2016 [id number] Mammogram Completed 04/17/2015 [id number] Diabetic Retinal Eye Exam Comple randi 03/18/2015 [id number] Mammogram Completed 10/16/2014 614577071 Diabetic Retinal Eye Exam Comple randi 06/12/2014 [id number] Diabetic Retinal Eye Exam Comple randi 12/11/2013 [id number] Mammogram Completed 06/11/2013 147770869 Diabetic Retinal Eye Exam Comple randi 12/11/2012 [id number] Diabetic Retinal Eye Exam Comple randi 07/12/2012 [id number] Mammogram Completed 06/09/2012 738928807 Diabetic Retinal Eye Exam Comple randi 11/16/2011 [id number] Diabetic Retinal Eye Exam Comple randi 06/16/2011 [id number] Mammogram Completed 05/17/2011 [id number] Diabetic Retinal Eye Exam Comple randi 11/13/2010 [id number] Diabetic Retinal Eye Exam Comple randi 03/26/2010 789077482 Diabetic Retinal Eye Exam Comple [facility] 01/10/2008 [id number] Mammogram Completed 01/10/2008 964530659 Bone Mineral Density Test Comple [facility] 03/20/2002 [id number] Colonoscopy Completed Medical Devices Description No Information Available Encounters Type Date Location Provider Dx Diagnosis Office Visit 11/13/2019 3:00p [facility] Preston M.D. 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 R42 Dizziness and giddiness Z99.2 Dependence on renal dialysis N18.6 End stage renal disease I25.10 Athscl heart disease of [place] coronary artery w/o ang pctrs K21.9 Gastro-esophageal reflux dis ease without esophagitis E11.65 Type 2 diabetes mellitus wit h hyperglycemia Z79.4 halfway (current) use of i nsulin E03.9 Hypothyroidism, unspecified J45.909 Unspecified asthma, uncompli cated Office Visit 08/14/2019 8:30a [facility]itty Preston M.D. I12.0 Hyp chr kidney disease w sta ge 5 chr kidney disease or Esrd N18.6 End stage renal disease I25.10 Athscl heart disease of [place] coronary artery w/o ang pctrs K21.9 Gastro-esophageal reflux dis ease without esophagitis E11.65 Type 2 diabetes mellitus wit h hyperglycemia Z79.4 halfway (current) use of i nsulin E03.9 Hypothyroidism, unspecified J45.909 Unspecified asthma, uncompli cated Assessments Date Code Description Provider 11/13/2019 E11.65 Type 2 diabetes mellitus with hy perglycemia Coco Preston M.D. 11/13/2019 Z79.4 halfway (current) use of insul in Coco Preston [...] 11/13/2019 I25.10 Atherosclerotic hear t disease of [place] coronary artery without angina pectoris Coco Preston M.D. 11/13/2019 Z23 Encounter for immunization Coco Preston M.D. 10/02/2019 R42 Dizziness and giddiness Coco Preston M.D. 10/02/2019 Z99.2 Dependence on renal dialysis Nasir Preston M.D. 10/02/2019 N18.6 End stage renal disease Coco Preston M.D. 10/02/2019 I25.10 Atherosclerotic hear t disease of [place] coronary artery without angina pectoris Coco Preston M.D. 10/02/2019 K21.9 Gastro-esophageal reflux disease without esophagitis Coco Preston M.D. 10/02/2019 E11.65 Type 2 diabetes mellitus with hy perglycemia Coco Preston M.D. 10/02/2019 Z79.4 salvage determiner (current) use of insul in Coco Preston M.D. 10/02/2019 E03.9 Hypothyroidism, unspecified Kaci Preston M.D. 10/02/2019 J45.909 Unspecified asthma, uncomplicate d Coco Preston M.D. 08/14/2019 I12.0 Hypertensive chronic kidney disease with stage 5 chronic kidney disease or end stage renal disease Coco Preston M.D. 08/14/2019 N18.6 End stage renal disease Coco Preston M.D. 08/14/2019 I25.10 Atherosclerotic hear t disease of [place] coronary artery without angina pectoris Coco Preston M.D. 08/14/2019 K21.9 Gastro-esophageal reflux disease without esophagitis Coco Preston M.D. 08/14/2019 E11.65 Type 2 diabetes mellitus with hy perglycemia Coco Preston M.D. 08/14/2019 Z79.4 halfway (current) use of insul in Coco Preston M.D. 08/14/2019 E03.9 Hypothyroidism, unspecified Kaci Preston M.D. 08/14/2019 J45.909 Unspecified asthma, uncomplicate d Coco Preston M.D. Plan of Treatment Future Appointment(s):* 04/22/2020 2:00 pm - Coco Preston M.D. at [facility]. 01/22/2020 - Coco Preston M.D.* All * New Medication:* Humalog Kwikpen 100 Unit/ML - 16 units sq before breakfast; 20 units sq before lunch and supper; MDD 60 units * Calcitriol 0.25 mcg - 2 tabs/d 4x/wk (Not HD) * Magnesium 500 mg - 1 by mouth qd * Capsacin Cream OTC - prn Functional Status Description No Information Available Mental Status Description No Information Available Referrals Description No Information Available
--- OUTSIDE RECORDS SUMMARY | 2020-04-02 12:19 | CCD | Continuity of Care Document ---
Author Author Barbie Preston M.D. Organization Unknown Address [address] [address] Phone [phone] Care Team Providers Care Rural Route Carrier Name Role Phone Benson Nelson MD AUTM [phone] Mehreen Weinstein AUTM [phone] Jaron Montano MD AUTM [phone] Coco Preston MD AUTM [phone] Problems Active Problems Provider Date Type 2 [...] morning 15units Coco Preston M.D. 10/02/2019 Ipratropium [place] 0.03% Solution 1-2 sprays each nostril 2-3x/day as needed 30ml Coco Preston M.D. 08/14/2019 Clopidogrel Bisulfate 75mg Tablets 1 by mouth every day 90tabs Coco Preston M.D. 05/10/19 20 Trulicity 1.5mg/0.5ML Solution Pen -Inject inject 0.5ml once a week 6ml Coco Preston M.D. 05/10/2019 Lopressor 50mg Tablets 1 PO bid (Please Deliver) 180tabs Mehreen Weinstein, JOE 05/23/2018 Framebridgetouch Ultra 2 w/Device Kit test twice a day and as directed e11.65 1units Mehreen Weinstein, JOE 02/14/2018 Onetouch Ultra Blue Strips use twice daily to check blood sugar dx e11.65 200units Mehreen Hernandez icer, ANP 02/14/2018 Onetouch Ultrasoft Lancets Misc test twice a day e11.65 200units Mehreen Weinstein, ANP 02/14/19 19 Cervical Collar/Soft Foam-Standard/Mediu m Misc wear as directed 1units Mehreen Weinstein, [facility] Walker With Wheels Misc use daily with seat and brakes. dx: m19.9 1units Mehreen Weinstein, ANP 07/07/2017 BD Pen Needle/Sulma/Ultra Fine/32G X 4mm 32G X 4 mm Misc 4 times a day 300units Mehreen Weinstein, [facility] 2016 Pen [place] 31G X 6 mm Misc as dir [...] needed for chest discomfort 25tabs Mehreen Weinstein, [facility] 11/25/2014 Atorvastatin Calcium 40mg Tablets Take One Tablet By Mouth Every Day 90tabs ANDREW Thao JR 04/19/2014 Insulin Syringe/Needle 28G X 1/2" 1 ML Misc useQID Or as Directed dxE11.9 400units Mehreen bateman, [facility] 11/12/2013 Glucose 4gm Chewtabs chew 4 tablets as needed for low sugar 30units Mehreen Weinstein, [facility] 2012 Unifine Pentips [id number] 29G X 12m m Misc use bid or as directed 250.00 100units Sonam moses, D.OKitty 01/12/[address] take one capsule by mouth once daily 90caps Mehreen Weinstein, [facility] 04/24/2010 Symbicort 160-4.5mcg/Act Aerosol 2 puff twice [...] CPT Code Status Date Vaccine Lot # [id number] Given 11/13/2019 Influenza Vaccin e Quadrivalent Preser/Antibiotic Free Im Use [id number] 30225 Given 12/26/2018 Adacel- Tetanus Diphtheria P ertussis (Age64 & Under) [id number] Given 10/12/2017 Pneumovax 23 [id number] U-PneuC Given 10/05/2017 Prevnar 13 U-Flu Given 03/25/2017 Influenza,Unspecified U-PneuC Given 03/12/2015 Prevnar 13 Q2037 Given 11/22/2014 Fluvirin Virus Vaccine [id number] 01 Q2037 Given 12/04/2013 Fluvirin Virus Vaccine 25148 01 Q2037 Given 11/29/2012 Fluvirin Virus Vaccine Q2037 Given 11/19/2011 Fluvirin Virus Vaccine 30240 Given 11/19/2011 Pneumovax 23 [id number] Q2037 Given 11/18/2010 Fluvirin Virus Vaccine 60074 01 23631 Given 11/25/2009 Influenza Virus Vaccine 19588 Given 12/09/2008 Influenza Virus Vaccine 26534 Given 12/25/2007 Influenza Virus Vaccine 24155 Given 01/18/2006 Influenza Virus Vaccine 25363 Given 12/15/2004 Influenza Virus Vaccine 64289 Refused 10/12/2017 Zoster Vaccine 21737 Refused 10/12/2017 Shingrix Zoster Vaccine (HZV), Recombinant, [...] H/L Range Note Cardiac Marker Panel 03/01/2020 [facility] enter [address] [place] [address] [phone] CPK Creatine Phosphokinase 77 U/L Normal 26-19 2 CK-MB Value Mass 2.1 NG/ML Normal <3.6 MB/CK Relative Index 2.73 Normal < Or =4 1 Troponin I < 0.02 NG/ML Normal < 0.10 2 CBC With Differential 03/01/2020 [facility] [address] [place] [address] [phone] White Blood Count 11.8 10 High 4.0-10.0 [...] 36.0-66.0 Lymph % 11.7 % Low 24.0-44.0 [place]ier % 8.1 % High 0.0-5.0 Eos % 1.7 % Normal 0.0-3.0 Baso % 0.7 % Normal 0.0-1.0 Immature Granulocyte % 0.5 % Normal 0-3.0 Nucleated Red Blood Cell % 0.0 % Normal 0-0 Neutrophils # 9.1 10 High 1.5-8.5 Lymph # 1.4 10 Low 1.5-5.0 [place] # 1.0 10 High 0.0-0.8 Eos # 0.2 10 Normal 0.0-0.5 Baso # 0.1 10 Normal 0.0-0.2 Influenza A/B RSV Covid Amp 03/01/2020 [facility] [address] [place] [address] [phone] Influenza A Amplification NEGATIVE Normal Negati ve 3 Influenza B Amplification NEGATIVE Normal Negative 4 RSV Amplification NEGATIVE Normal Negative 5 Sars Covid-19 Amplification NEGATIVE Normal Negative 6 Prothrombin Time/Inr 03/01/2020 [facility] enter [address] [place] [address] [phone] Prothrombin Time 12.4 seconds Normal 12.5-14.3 Inr 0.91 Normal 7 Cardiac Marker Panel 03/01/2020 [facility] enter [address] [place] [id number] [phone] CPK Creatine Phosphokinase 144 U/L Normal 26-19 2 CK-MB Value Mass 2.3 NG/ML Normal <3.6 MB/CK Relative Index 1.60 Normal < Or =4 8 Troponin I < 0.02 NG/ML Normal < 0.10 9 Liver Profile 03/01/2020 [facility] nter [address] [place] [address] [phone] Ast/Sgot 56 U/L High 7-37 Alt/SGPT 52 U/L Normal 12-78 Alkaline Phosphatase 132 U/L High 45-117 Bilirubin,Total 0.5 mg/dL Normal 0.2-1.0 Bilirubin,Direct < 0.1 mg/dL Normal 0.0-0.2 Total Protein 7.2 GM/DL Normal 6.4-8.2 Albumin 3.3 GM/DL Normal 3.2-5.2 Albumin/Globulin Ratio 0.8 Low 1.2-2.2 Basic Metabolic Profile 03/01/[address] [address] [phone] Glucose, Fasting 125 mg/dL High 70-100 Blood [...] mg/dL Low 8.8-10.2 Laboratory test finding 03/01/[address] [address] [phone] NT-Pro BNP 4311 pg/mL High <125 Thyroxine (T4) 11.6 g/dL Normal 4.5-12.0 Thyroid Stimulating Hormone 2.900 uIU/ML Normal 0.358-3.740 Magnesium Level 2.0 mg/dL Normal 1.8-2.4 Laboratory test finding 02/26/[address] [address] [phone] Bedside Glucose 161 mg/dL High 83-110 12 A1c 10/02/2019 [facility] Dice Maker: Dr [place] [address] [phone] Hba1c 9.9 g/dL High 4.8 - 5.6 13 Est Avg Glucose 237 mg/dL High 60 - 110 Laboratory test finding 10/02/2019 [facility] Dice Maker: Dr [place] [address] [phone] Thyroid Stimulating Hormone 4.60 uIU/mL High 0.3 6 - 3.74 1 DIAGNOSIS CRITERIA MMB ng/ml Relative Index (RI) NON-AMI < or = 5 N/A DESAI ZONE > 5 < or = 4 AMI > 5 > 4 2 Troponin I Reference Interva l for Siemens [employer] LOCI: 99th Percentile= 0.00-0.045 ng/ml Risk Stratification: [...] pathogens. DISCLAIMER: Testing was performed using the [facility] SARS-CoV-2 test. This test was developed and its performance characteristics determined by [facility]. This test has not been FDA cleared [...] 9 Troponin I Reference Interva l for Telespree [employer] LOCI: 99th Percentile= 0.00-0.045 ng/ml Risk Stratification: [...] Little GFR Left ESRD GFR <15 on PUTTY TINTER MAKER 11 Testing was performed on a h emolysed specimen. Suggest recollection of specimen for more accurate test results. 12 RN Notified Nurse Notified 13 Lab Result Notes: Pre-Diabetes 5.7 - 6.4 % Diabetes = or > 6.5% Procedures Date Code Description Status 05/04/2019 [id number] Colonoscopy Completed 05/11/2016 [id number] Mammogram Completed 04/17/2015 [id number] Diabetic Retinal Eye Exam [facility] 03/18/2015 [id number] Mammogram Completed 10/16/2014 [id number] Diabetic Retinal Eye Exam [facility] 06/12/2014 [id number] Diabetic Retinal Eye Exam [facility] 12/11/2013 [id number] Mammogram Completed 06/11/2013 [id number] Diabetic Retinal Eye Exam [facility] 12/11/2012 [id number] Diabetic Retinal Eye Exam [facility] 07/12/2012 [id number] Mammogram Completed 06/09/2012 [id number] Diabetic Retinal Eye Exam [facility] 11/16/2011 [id number] Diabetic Retinal Eye Exam [facility] 06/16/2011 [id number] Mammogram Completed 05/17/2011 [id number] Diabetic Retinal Eye Exam [facility] 11/13/2010 [id number] Diabetic Retinal Eye Exam [facility] 03/26/2010 [id number] Diabetic Retinal Eye Exam [facility] 01/10/2008 [id number] Mammogram Completed 01/10/2008 [id number] Bone Mineral Density Test [facility] 03/20/2002 [id number] Colonoscopy Completed Medical Devices Description No Information Available Encounters Type Date Location Provider Dx Diagnosis Office Visit 01/22/2020 2:30p [facility] P.CKitty Preston M.D. I12.0 Hyp chr [...] for other disorder Office Visit 11/13/2019 3:00p [facility] PTiffanie Preston M.D. 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 R42 Dizziness and giddiness Z99.2 Dependence on renal dialysis N18.6 End stage renal disease I25.10 Athscl heart disease of [place] coronary artery w/o ang pctrs K21.9 Gastro-esophageal reflux dis ease without esophagitis E11.65 Type 2 diabetes mellitus wit h hyperglycemia Z79.4 buttermaker helper (current) use of i nsulin E03.9 Hypothyroidism, unspecified J45.909 Unspecified asthma, uncompli cated Assessments Date Code Description Provider 01/22/2020 I12.0 Hypertensive chronic kidney disease with stage 5 chronic kidney disease or end stage renal disease Coco Preston M.D. 01/22/2020 N18.6 End stage renal disease Coco Preston M.D. 01/22/2020 I25.10 Atherosclerotic hear t disease of [place] coronary artery without angina pectoris Coco Preston [...] hy perglycemia Coco Preston M.D. 11/13/2019 Z79.4 buttermaker helper (current) use of insul in Coco Preston [...] 11/13/2019 I25.10 Atherosclerotic hear t disease of [place] coronary artery without angina pectoris Coco Preston M.D. 11/13/2019 Z23 Encounter for immunization Coco Preston M.D. 10/02/2019 R42 Dizziness and giddiness Coco Preston M.D. 10/02/2019 Z99.2 Dependence on renal dialysis Nasir Preston M.D. 10/02/2019 N18.6 End stage renal disease Coco Preston M.D. 10/02/2019 I25.10 Atherosclerotic hear t disease of [place] coronary artery without angina pectoris Coco Preston M.D. 10/02/2019 K21.9 Gastro-esophageal reflux disease without esophagitis Coco Preston M.D. 10/02/2019 E11.65 Type 2 diabetes mellitus with hy perglycemia Coco Preston M.D. 10/02/2019 Z79.4 buttermaker helper (current) use of insul in Coco Preston M.D. 10/02/2019 E03.9 Hypothyroidism, unspecified Kaci Preston M.D. 10/02/2019 J45.909 Unspecified asthma, uncomplicate d Coco Preston M.D. Plan of Treatment Future Appointment(s):* 04/22/2020 2:00 pm - Coco Preston M.D. at [facility] 01/22/2020 - Coco Preston M.D.* I12.0 Hypertensive chronic kidney disease with stage 5 chronic kidney disease or end stage renal disease * N18.6 End stage renal disease * I25.10 Atherosclerotic heart disease of [place] coronary artery without angina pectoris * E03.9 [...] Referral Status Appt Date Jaron Montano MD ALCOHOL STILL OPERATOR CONSULT FOR DIABETIC EYE CARE Sent [place] [facility] [place] [address] [phone]
--- OUTSIDE RECORDS SUMMARY | 2020-04-02 12:19 | CCD | Continuity of Care Document ---
Author Organization Unknown Address Unknown Phone Unavailable Care Team Providers Care Decision Analyst Name Role Phone Benson Nelson MD AUTM [phone] Mehreen Weinstein AUTM [phone] Jaron Montano MD AUTM [phone] Coco Preston MD AUTM [phone] Problems Active Problems Provider Date Type 2 [...] Alerts Active Allergies Reaction Severity Comments Date KeJim jorgensen,Macrobid rash 10/23 Latex Allergy 09/11/2012 TeQuin hives [...] under the skin every morning 15units Coco Pretson M.D. 10/02/2019 Ipratropium [place] 0.03% Solution 1-2 sprays each nostril 2-3x/day [...] check blood sugar dx e11.65 200units Mehreen Caputo Sp icer, ANP 02/14/2018 Onetouch Ultrasoft Lancets Misc test twice a day e11.65 200units Mehreen Weinstein, JOE 02/14/19 19 Cervical Collar/Soft Foam-Standard/Mediu m Misc wear as directed 1units Mehreen Weinstein, ANP Walker With Wheels Misc use daily with seat and brakes. dx: m19.9 1units Mehreen Weinstein, [facility] 07/07/2017 BD Pen Needle/Sulma/Ultra Fine/32G X 4mm 32G X 4 mm Misc 4 times a day 300units Mehreen Weinstein, ANP 2016 Pen [place] 31G X 6 mm Misc as dir 4/day 210units Mehreen Weinstein, [facility] 01/11/2017 Ferrous Gluconate 324(37.5Fe) mg T ablets 1 by mouth every day 30tabs Adarsh Florez MD 017 Ventolin HFA 108(90Base) mcg/Act A erosol 2 puffs four times a day as needed 54gm Coco montgomery M.D. 12/12/2014 Nitrostat 0.4mg Tablets Sub one under tongue every 5 minutes x 3 as needed for chest discomfort 25tabs Mehreen Weinstein, [facility] 11/25/2014 Atorvastatin Calcium 40mg Tablets Take One Tablet By Mouth Every Day 90tabs ANDREW Thao JR 04/19/2014 Insulin Syringe/Needle 28G X 1/2" 1 ML Misc useQID Or as Directed dxE11.9 400units Mehreen bateman, [facility] 11/12/2013 Glucose 4gm Chewtabs chew 4 tablets as needed for low sugar 30units Mehreen Weinstein, [facility] 2012 Unifine Pentips [id number] 29G X 12m m Misc use bid or as directed 250.00 100units Sonam moses, D.OKitty 01/12/[address] take one capsule by mouth once daily 90caps Mehreen Weinstein, [facility] 04/24/2010 Symbicort 160-4.5mcg/Act Aerosol 2 puff twice [...] 11/18/2010 Administration Of Flu Vaccine Inj ection Angelika Anaya.O. 11/25 Administration Of Flu Vaccine Inj ection Sonam Ledbetter D.O. 12/09 Administration Of Flu Vaccine Inj ection Sonam Ledbetter D.O. 12/24 Immunizations CPT Code Status Date Vaccine Lot # [id number] Given 11/13/2019 Influenza Vaccin e Quadrivalent Preser/Antibiotic Free Im Use [id number] 39681 Given 12/26/2018 Adacel- Tetanus Diphtheria P ertussis (Age64 & Under) [id number] 27209 Given 10/12/2017 Pneumovax 23 [id number] U-PneuC Given 10/05/2017 Prevnar 13 U-Flu Given 03/25/2017 Influenza,Unspecified U-PneuC Given 03/12/2015 Prevnar 13 Q2037 Given 11/22/2014 Fluvirin Virus Vaccine 71245 01 Q2037 Given 12/04/2013 Fluvirin Virus Vaccine 77474 01 Q2037 Given 11/29/2012 Fluvirin Virus Vaccine Q2037 Given 11/19/2011 Fluvirin Virus Vaccine 87185 Given 11/19/2011 Pneumovax 23 [id number] Q2037 Given 11/18/2010 Fluvirin Virus Vaccine 44705 01 28805 Given 11/25/2009 Influenza Virus Vaccine 61464 Given 12/09/2008 Influenza Virus Vaccine 93061 Given 12/25/2007 Influenza Virus Vaccine 05934 Given 01/18/2006 Influenza Virus Vaccine 46847 Given 12/15/2004 Influenza Virus Vaccine 68448 Refused 10/12/2017 Zoster Vaccine 77878 Refused 10/12/2017 Shingrix Zoster Vaccine (HZV), Recombinant, [...] Date Facility Test Result H/L Range Note Laboratory test finding 02/26/2020 [facility] [address] [place], [place] [id number] [phone] Bedside Glucose 161 mg/dL High 83-110 1 A1c 10/02/2019 [facility] Lens Assistant: [place] [address] [phone] Hba1c 9.9 g/dL High 4.8 - 5.6 2 Est Avg Glucose 237 mg/dL High 60 - 110 Laboratory test finding 10/02/2019 [facility] Lens Assistant: Dr Adarsh Florez [place], [place] [address] [phone] Thyroid Stimulating Hormone 4.60 uIU/mL High 0.3 6 - 3.74 1 RN Notified Nurse Notified 2 Lab Result Notes: Pre-Diabetes 5.7 - 6.4 % Diabetes = or > 6.5% Procedures Date Code Description Status 05/04/2019 [id number] Colonoscopy Completed 05/11/2016 [id number] Mammogram Completed 04/17/2015 [id number] Diabetic Retinal Eye Exam [facility] 03/18/2015 [id number] Mammogram Completed 10/16/2014 [id number] Diabetic Retinal Eye Exam [facility] 06/12/2014 [id number] Diabetic Retinal Eye Exam [facility] 12/11/2013 [id number] Mammogram Completed 06/11/2013 [id number] Diabetic Retinal Eye Exam [facility] 12/11/2012 [id number] Diabetic Retinal Eye Exam [facility] 07/12/2012 [id number] Mammogram Completed 06/09/2012 [id number] Diabetic Retinal Eye Exam [facility] 11/16/2011 [id number] Diabetic Retinal Eye Exam [facility] 06/16/2011 [id number] Mammogram Completed 05/17/2011 [id number] Diabetic Retinal Eye Exam [facility] 11/13/2010 [id number] Diabetic Retinal Eye Exam [facility] 03/26/2010 [id number] Diabetic Retinal Eye Exam [facility] 01/10/2008 [id number] Mammogram Completed 01/10/2008 [id number] Bone Mineral Density Test [facility] 03/20/2002 [id number] Colonoscopy Completed Medical Devices Description No Information Available Encounters Type Date Location Provider Dx Diagnosis Office Visit 01/22/2020 2:30p [facility] Preston M.D. I12.0 Hyp chr [...] for other disorder Office Visit 11/13/2019 3:00p [facility] Preston M.D. 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 01/22/2020 N18.6 End stage renal disease Coco Preston M.D. 01/22/2020 I25.10 Atherosclerotic hear t disease of [place] coronary artery without angina pectoris Coco Preston [...] hy perglycemia Coco Preston M.D. 11/13/2019 Z79.4 assisted (current) use of insul in Coco Preston [...] 11/13/2019 I25.10 Atherosclerotic hear t disease of [place] coronary artery without angina pectoris Coco Preston M.D. 11/13/2019 Z23 Encounter for immunization Coco Preston M.D. 10/02/2019 R42 Dizziness and giddiness Coco Preston M.D. 10/02/2019 Z99.2 Dependence on renal dialysis Nasir Preston M.D. 10/02/2019 N18.6 End stage renal disease Coco Preston M.D. 10/02/2019 I25.10 Atherosclerotic hear t disease of [place] coronary artery without angina pectoris Coco Preston M.D. 10/02/2019 K21.9 Gastro-esophageal reflux disease without esophagitis Coco Preston M.D. 10/02/2019 E11.65 Type 2 diabetes mellitus with hy perglycemia Coco Preston M.D. 10/02/2019 Z79.4 assisted (current) use of insul in Coco Preston M.D. 10/02/2019 E03.9 Hypothyroidism, unspecified Kaci Preston M.D. 10/02/2019 J45.909 Unspecified asthma, uncomplicate d Coco Preston M.D. Plan of Treatment Future Appointment(s):* 04/22/2020 2:00 pm - Coco Preston M.D. at [facility] 01/22/2020 - Coco Preston M.D.* I12.0 Hypertensive chronic kidney disease with stage 5 chronic kidney disease or end stage renal disease * N18.6 End stage renal disease * I25.10 Atherosclerotic heart disease of [place] coronary artery without angina pectoris * E03.9 [...] Referral Status Appt Date Jaron Montano MD SOFTWARE DEVELOPMENT INTERN CONSULT FOR DIABETIC EYE CARE Sent [place] [facility] [address] [place] [address] [phone]
--- OUTSIDE RECORDS SUMMARY | 2020-04-02 12:20 | CCD | Continuity of Care Document ---
Author Author Nurse #2 Barbie A Organization Unknown Address [address] [address] Phone Unavailable Care Team Providers Care Dental Hygiene Teacher Name Role Phone Benson Nelson MD AUTM [phone] Mehreen Weinstein AUTM [phone] Jaron Montano MD AUTM [phone] Coco Preston MD AUTM [phone] Problems Active Problems Provider Date Type 2 [...] SIG Qnty Indications Ordering Provide r Date Levothyroxine Sodium 125mcg Tablet s take 1 tablet daily before breakfast on an empty stomach 90tabs Coco Preston M.D. 10/03/2019 Lantus Solostar 100U nit/ML Solution Pen-Inject 40 units sq every morning 15ml Coco montgomery M.D. 10/02/2019 Ipratropium [place] 0.03% Solution 1-2 sprays each nostril 2-3x/day as needed 30ml Coco Preston M.D. 08/14/2019 Clopidogrel Bisulfate 75mg Tablets 1 by mouth every day 90tabs Coco Preston M.D. 05/10/19 20 Trulicity 1.5mg/0.5ML Solution Pen -Inject inject 0.5ml once a week 6ml Coco Preston M.D. 05/10/2019 Lopressor 50mg Tablets 1 PO bid (Please Deliver) 180tabs Mehreen Weinstein, JOE 05/23/2018 Flonase Sensimist 27 .5mcg/[place] Suspension 2 sprays each nostril 11.8ml Mehreen Weinstein, AN P 04/18/2018 Onetouch Ultra 2 w/Device Kit test twice a day and as directed e11.65 1units Mehreen Weinstein, JOE 02/14/2018 Onetouch Ultra Blue Strips use twice daily to check blood sugar dx e11.65 200units Mehreen Caputo Sp icer, ANP 02/14/2018 Onetouch Ultrasoft Lancets Misc test twice a day e11.65 200units Mehreen Weinstein, ANP 02/14/19 19 Eucrisa 2% Ointment tw ice a day to hands 60gm Mehreen Weinstein, ANP 01/17/2018 Cervical Collar/Soft Foam-Standard/Mediu m Misc wear as directed 1uncierra Weinstein, JOE Walker With Wheels Misc use daily with seat and brakes. dx: m19.9 1uncierra Weinstein, JOE 07/07/2017 Humalog Kwikpen 100U nit/ML Solution Pen-Inject Inject 20 Units Under The Skin Before Meals Maximum Da ranulfo Dose = 60 Units 15units Coco Preston M.D. 04/03/2017 Pen Rogers 31G X 6 mm Misc as dir 4/day 210units Mehreen Weinstein, ANP 01/11/2017 BD Pen Needle/Sulma/Ultra Fine/32G X 4mm 32G X 4 mm Misc 4 times a day 300units Mehreen Weinstein, ANP 2016 Ferrous Gluconate 324(37.5Fe) mg T ablets 1 by mouth every day 30tabs Adarsh Florez MD 017 Ventolin HFA 108(90Base) mcg/Act A erosol 2 puffs four times a day as needed 54gm Coco montgomery M.D. 12/12/2014 Nitrostat 0.4mg Tablets Sub one under tongue every 5 minutes x 3 as needed for chest discomfort 25tabs Mehreen Weinstein, [facility] 11/25/2014 Atorvastatin Calcium 40mg Tablets Take One Tablet By Mouth Every Day 90tabs ANDREW Thao JR 04/19/2014 Insulin Syringe/Needle 28G X 1/2" 1 ML Misc useQID Or as Directed dxE11.9 400units Mehreen bateman, [facility] 11/12/2013 Glucose 4gm Chewtabs chew 4 tablets as needed for low sugar 30units Mehreen Weinstein, [facility] 2012 Unifine Pentips [id number] 29G X 12m m Misc use bid or as directed 250.00 100units Sonam moses, D.OKitty 01/12/[address] take one capsule by mouth once daily 90caps Laura Harrington 04/24/2010 Torsemide 20mg Tablets 1 by mouth four times a week Unknown Loperamide HCL 2mg Capsules 1 by mouth every day as needed Unknown Acetaminophen Extra Strength 500mg Tablets 2 by mouth three times a day for pain Unk nown Calcitriol 0.25mcg Capsules 1 by mouth every day Unknown Azopt 1% Suspension 1 drop both eyes twice a day Unknown Vitamin D-1000 Maximum Strength 1000Unit Tablets 1 by mouth every day Unknown /0 000 Aspirin Adult Low Dose 81mg Tablet s DR 1 by mouth every day Unknown Symbicort 160-4.5mcg/Act Aerosol 2 puff twice a day 18gm Mehreen Weinstein, JOE History Medications Lantus Solostar 100U nit/ML Solution Pen-Inject 34 units sq every morning 15ml Coco montgomery M.D. 08/14/2019 - 10/02/2019 Medications Administered in Office Medication SIG Qnty Indications Ordering Provider Date Administration Of Flu Vaccine Inj ection Coco Preston M.D. 11/13/19 20 Immunization Adminstration,1 Vaccine/Tox oid Injection Mehreen Weinstein, JOE 019 Administration Of Flu Vaccine Inj ection Sonam Ledbetter D.O. 11/22 Administration Of Flu Vaccine Inj ection Sonam Ledbetter D.O. 12/04 Administration Of Flu Vaccine Inj ection Sonam Ledbetter D.O. 11/29 Administration Of Flu Vaccine Inj ection Sonam Ledbetter D.O. 11/18 Administration Of Flu Vaccine Inj ection Mehreen Weinstein, JOE 11/18/2010 Administration Of Flu Vaccine Inj ection Sonam Ledbetter D.O. 11/25 Administration Of Flu Vaccine Inj ection Sonam Ledbetter D.O. 12/09 Administration Of Flu Vaccine Inj ection Sonam Ledbetter D.O. 12/24 Immunizations CPT Code Status Date Vaccine Lot # [id number] Given 11/13/2019 Influenza Vaccin e Quadrivalent Preser/Antibiotic Free Im Use [id number] 88762 Given 12/26/2018 Adacel- Tetanus Diphtheria P ertussis (Age64 & Under) [id number] Given 10/12/2017 Pneumovax 23 [id number] U-PneuC Given 10/05/2017 Prevnar 13 U-Flu Given 03/25/2017 Influenza,Unspecified U-PneuC Given 03/12/2015 Prevnar 13 Q2037 Given 11/22/2014 Fluvirin Virus Vaccine [id number] 01 Q2037 Given 12/04/2013 Fluvirin Virus Vaccine 83099 01 Q2037 Given 11/29/2012 Fluvirin Virus Vaccine Q2037 Given 11/19/2011 Fluvirin Virus Vaccine 52809 Given 11/19/2011 Pneumovax 23 [id number] Q2037 Given 11/18/2010 Fluvirin Virus Vaccine 80713 01 57547 Given 11/25/2009 Influenza Virus Vaccine 37676 Given 12/09/2008 Influenza Virus Vaccine 36067 Given 12/25/2007 Influenza Virus Vaccine 13084 Given 01/18/2006 Influenza Virus Vaccine 12070 Given 12/15/2004 Influenza Virus Vaccine 50834 Refused 10/12/2017 Zoster Vaccine 29936 Refused 10/12/2017 Shingrix Zoster Vaccine (HZV), Recombinant, [...] Test Result H/L Range Note A1c 10/02/2019 [facility] Laborer [place]: Dr Adarsh Florez [place], [place] [id number] [phone] Hba1c 9.9 g/dL High 4.8 - 5.6 1 Est Avg Glucose 237 mg/dL High 60 - 110 Laboratory test finding 10/02/2019 [facility] Lab[facility] [place]: Dr Adarsh Florez [place], [place] [id number] [phone] Thyroid Stimulating Hormone 4.60 uIU/mL High 0.3 6 - 3.74 CBC With Differential 08/07/2019 [facility] [address] [place] [address] [phone] White Blood Count 11.3 10 High 4.0-10.0 [...] 36.0-66.0 Lymph % 11.1 % Low 24.0-44.0 [place]irie % 5.3 % High 0.0-5.0 Eos % 2.0 % Normal 0.0-3.0 Baso % 0.4 % Normal 0.0-1.0 Immature Granulocyte % 0.4 % Normal 0-3.0 Nucleated Red Blood Cell % 0.0 % Normal 0-0 Neutrophils # 9.2 10 High 1.5-8.5 Lymph # 1.3 10 Low 1.5-5.0 [place]irie # 0.6 10 Normal 0.0-0.8 Eos # 0.2 10 Normal 0.0-0.5 Baso # 0.0 10 Normal 0.0-0.2 Laboratory test finding 08/07/2019 [facility] [address] [place] [address] [phone] Lactic Acid Sepsis Protocol 1.2 mmol/L Normal 0.4- 2.0 2 Type & Screen -Incl Blood Type,Joshua,AB SC 08/07/[address] [address] [phone] Blood Type B POSITIVE Normal AB Screen (Indirect Steph)Vis NEGATIVE Normal Cardiac Marker Panel 08/07/2019 [facility] enter [address] [place] [address] [phone] CPK Creatine Phosphokinase 78 U/L Normal 26-19 2 CK-MB Value Mass 2.5 NG/ML Normal <3.6 MB/CK Relative Index 3.21 Normal < Or =4 3 Troponin I < 0.02 NG/ML Normal < 0.10 4 Liver Profile 08/07/2019 [facility] nter [address] [place], [place] [id number] [phone] Ast/Sgot 24 U/L Normal 7-37 Alt/SGPT 32 U/L Normal 12-78 Alkaline Phosphatase 111 U/L Normal 45-117 Bilirubin,Total 0.3 mg/dL Normal 0.2-1.0 Bilirubin,Direct 0.1 mg/dL Normal 0.0-0.2 Total Protein 6.4 GM/DL Normal 6.4-8.2 Albumin 2.9 GM/DL Low 3.2-5.2 Albumin/Globulin Ratio 0.8 Low 1.2-2.2 Basic Metabolic Profile 08/07/2019 [facility] [address] [place] [address] [phone] Glucose, Fasting 253 mg/dL High 70-100 Blood [...] mg/dL Low 8.8-10.2 Laboratory test finding 08/07/2019 [place] [id number] [phone] NT-Pro BNP 3546 pg/mL High <125 6 [...] 4 Troponin I Reference Interva l for Genasys LOCI: 99th Percentile= 0.00-0.045 ng/ml Risk Stratification: [...] Little GFR Left ESRD GFR <15 on MEDICAL LOGISTICS SPECIALIST 6 1251. 7 1251. Procedures Date Code Description Status 05/04/2019 [id number] Colonoscopy Completed 05/11/2016 [id number] Mammogram Completed 04/17/2015 [id number] Diabetic Retinal Eye Exam Comple randi 03/18/2015 [id number] Mammogram Completed 10/16/2014 [id number] Diabetic Retinal Eye Exam Comple randi 06/12/2014 [id number] Diabetic Retinal Eye Exam Comple randi 12/11/2013 [id number] Mammogram Completed 06/11/2013 222594547 Diabetic Retinal Eye Exam Comple randi 12/11/2012 [id number] Diabetic Retinal Eye Exam Comple randi 07/12/2012 [id number] Mammogram Completed 06/09/2012 [id number] Diabetic Retinal Eye Exam Comple randi 11/16/2011 [id number] Diabetic Retinal Eye Exam Comple randi 06/16/2011 [id number] Mammogram Completed 05/17/2011 [id number] Diabetic Retinal Eye Exam Comple randi 11/13/2010 [id number] Diabetic Retinal Eye Exam Comple randi 03/26/2010 [id number] Diabetic Retinal Eye Exam Comple [facility] 01/10/2008 [id number] Mammogram Completed 01/10/2008 770392505 Bone Mineral Density Test Comple [facility] 03/20/2002 [id number] Colonoscopy Completed Medical Devices Description No Information Available Encounters Type Date Location Provider Dx Diagnosis Office Visit 11/13/2019 3:00p [facility] M.D. 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 11/13/2019 Z79.4 correction (current) use of insul in Coco Preston [...] 11/13/2019 I25.10 Atherosclerotic hear t disease of [place] coronary artery without angina pectoris Coco Preston M.D. 11/13/2019 Z23 Encounter for immunization Coco Preston M.D. 10/02/2019 R42 Dizziness and giddiness Coco Preston M.D. 10/02/2019 Z99.2 Dependence on renal dialysis Nasir Presotn M.D. 10/02/2019 N18.6 End stage renal disease Coco Preston M.D. 10/02/2019 I25.10 Atherosclerotic hear t disease of [place] coronary artery without angina pectoris Coco Preston M.D. 10/02/2019 K21.9 Gastro-esophageal reflux disease without esophagitis Coco Preston M.D. 10/02/2019 E11.65 Type 2 diabetes mellitus with hy perglycemia Coco Preston M.D. 10/02/2019 Z79.4 exterminator (current) use of insul in Coco Preston M.D. 10/02/2019 E03.9 Hypothyroidism, unspecified Kaci Preston M.D. 10/02/2019 J45.909 Unspecified asthma, uncomplicate d Coco Preston M.D. 08/14/2019 I12.0 Hypertensive chronic kidney disease with stage 5 chronic kidney disease or end stage renal disease Coco Preston M.D. 08/14/2019 N18.6 End stage renal disease Coco Preston M.D. 08/14/2019 I25.10 Atherosclerotic hear t disease of [place] coronary artery without angina pectoris Coco Preston M.D. 08/14/2019 K21.9 Gastro-esophageal reflux disease without esophagitis Coco Preston M.D. 08/14/2019 E11.65 Type 2 diabetes mellitus with hy perglycemia Coco Preston M.D. 08/14/2019 Z79.4 exterminator (current) use of insul in Coco Preston M.D. 08/14/2019 E03.9 Hypothyroidism, unspecified Kaci Preston M.D. 08/14/2019 J45.909 Unspecified asthma, uncomplicate d Coco Preston M.D. Plan of Treatment No Information Available Functional Status Description No Information Available Mental Status Description No Information Available Referrals Description No Information Available
--- OUTSIDE RECORDS SUMMARY | 2020-04-02 12:21 | CCD ---
Author Author [facility] Organization [facility] Address Unknown Phone Unavailable Care Team Providers Care Order Processing Specialist Name Role Phone Destiney Aleman MD Unavailable Unavailable Destiney Aleman MD Unavailable Unavailable Destiney Aleman MD Unavailable Unavailable Destiney Aleman MD Unavailable Unavailable Destiney Aleman MD Unavailable Unavailable Destiney Aleman MD Unavailable Unavailable Destiney Aleman MD Unavailable Unavailable Destiney Aleman MD Unavailable Unavailable Destiney Aleman MD Unavailable Unavailable Destiney Aleman MD Unavailable Unavailable Destiney Aleman MD Unavailable Unavailable Destiney Aleman MD Unavailable Unavailable Destiney Aleman MD Unavailable Unavailable Destiney Aleman MD Unavailable Unavailable Destiney Aleman MD Unavailable Unavailable Laura Preston MD Unavailable Unavailable Laura Preston MD Unavailable Unavailable Laura Preston MD Unavailable Unavailable Laura Preston MD Unavailable Unavailable Laura Preston MD Unavailable Unavailable Laura Preston MD Unavailable Unavailable Laura Preston MD Unavailable Unavailable Laura Preston MD Unavailable Unavailable Laura Preston MD Unavailable Unavailable Laura Preston MD Unavailable Unavailable Laura Preston MD Unavailable Unavailable KaryLaura saeed MD Unavailable Unavailable KaryLaura MD Unavailable Unavailable KaryLaura goff MD Unavailable Unavailable KaryLaura MD Unavailable Unavailable KaryLaura MD Unavailable Unavailable KaryLaura MD Unavailable Unavailable KaryLaura MD Unavailable Unavailable KaryLaura saeed MD Unavailable Unavailable KaryLaura MD Unavailable Unavailable KaryLaura MD Unavailable Unavailable KaryLaura MD Unavailable Unavailable KaryLaura MD Unavailable Unavailable KaryLaura MD Unavailable Unavailable KaryLaura MD Unavailable Unavailable KaryLaura MD Unavailable Unavailable KaryLaura MD Unavailable Unavailable KaryLaura MD Unavailable Unavailable KaryLaura goff MD Unavailable Unavailable KaryLaura saeed MD Unavailable Unavailable Laura Preston MD Unavailable Unavailable Laura Pretson MD Unavailable Unavailable Laura Preston MD Unavailable Unavailable Laura Preston MD Unavailable Unavailable Laura Preston MD Unavailable Unavailable Laura Preston MD Unavailable Unavailable Laura Preston MD Unavailable Unavailable Laura Preston MD Unavailable Unavailable Laura Preston MD Unavailable Unavailable KaryLaura goff MD Unavailable Unavailable Laura Preston MD Unavailable Unavailable Laura Preston MD Unavailable Unavailable Laura Preston MD Unavailable Unavailable Laura Preston MD Unavailable Unavailable Laura Preston MD Unavailable Unavailable Laura Preston MD Unavailable Unavailable Laura Preston MD Unavailable Unavailable Laura Preston MD Unavailable Unavailable Laura Preston MD Unavailable Unavailable Laura Preston MD Unavailable Unavailable Laura Preston MD Unavailable Unavailable Laura Preston MD Unavailable Unavailable Laura Preston MD Unavailable Unavailable Laura Preston MD Unavailable Unavailable Laura Preston MD Unavailable Unavailable Laura Preston MD Unavailable Unavailable Laura Preston MD Unavailable Unavailable Laura Preston MD Unavailable Unavailable Laura Preston MD Unavailable Unavailable KaryLaura MD Unavailable Unavailable KaryLaura MD Unavailable Unavailable Laura Preston MD Unavailable Unavailable Laura Preston MD Unavailable Unavailable Laura Preston MD Unavailable Unavailable Laura Preston MD Unavailable Unavailable Laura Preston MD Unavailable Unavailable Laura Preston MD Unavailable Unavailable Laura Preston MD Unavailable Unavailable Laura Preston MD Unavailable Unavailable Laura Preston MD Unavailable Unavailable Laura Preston MD Unavailable Unavailable Laura Preston MD Unavailable Unavailable Laura Preston MD Unavailable Unavailable Laura Preston MD Unavailable Unavailable Laura Preston MD Unavailable Unavailable Laura Preston MD Unavailable Unavailable Laura Preston MD Unavailable Unavailable Laura Preston MD Unavailable Unavailable Martin, L Shawanda PA Unavailable Unavailable Martin, L Shawanda PA Unavailable Unavailable Martin, L Shawanda PA Unavailable Unavailable Martin, L Shawanda PA Unavailable Unavailable Martin, L Shawanda PA Unavailable Unavailable Martin, L Shawanda PA Unavailable Unavailable Martin, L Shawanda PA Unavailable Unavailable Martin, L Shawanda PA Unavailable Unavailable Martin, L Shawanda PA Unavailable Unavailable Martin, L Shawanda PA Unavailable Unavailable Martin, L Shawanda PA Unavailable Unavailable Martin, L Shawanda PA Unavailable Unavailable Martin, L Shawanda PA Unavailable Unavailable Martin, L Shawanda PA Unavailable Unavailable Martin, L Shawanda PA Unavailable Unavailable Martin, L Shawanda PA Unavailable Unavailable Martin, L Shawanda PA Unavailable Unavailable Martin, L Shawanda PA Unavailable Unavailable Martin, L Shawanda PA Unavailable Unavailable Martin, L Shawanda PA Unavailable Unavailable Martin, L Shawanda PA Unavailable Unavailable Martin, L Shawanda PA Unavailable Unavailable Martin, L Shawanda PA Unavailable Unavailable Pastor, L Bisi RPA Unavailable Unavailable Pastor, L Bisi RPA Unavailable Unavailable Pastor, L Bisi RPA Unavailable Unavailable Pastor, L Bisi RPA Unavailable Unavailable Pastor, L Bisi RPA Unavailable Unavailable Pastor, L Bisi RPA Unavailable Unavailable Pastor, L Bisi RPA Unavailable Unavailable Pastor, L Bisi RPA Unavailable Unavailable Pastor, L Bisi RPA Unavailable Unavailable Pastor, L Bisi RPA Unavailable Unavailable Pastor, L Bisi RPA Unavailable Unavailable Pastor, L Bisi RPA Unavailable Unavailable Pastor, L Bisi RPA Unavailable Unavailable Pastor, L Bisi RPA Unavailable Unavailable Pastor, L Bisi RPA Unavailable Unavailable Pastor, L Bisi RPA Unavailable Unavailable Pastor, L Bisi RPA Unavailable Unavailable Pastor, L Bisi RPA Unavailable Unavailable Pastor, L Bisi RPA Unavailable Unavailable Pastor, L Bisi RPA Unavailable Unavailable Pastor, L Bisi RPA Unavailable Unavailable Pastor, L Bisi RPA Unavailable Unavailable Pastor, L Bisi RPA Unavailable Unavailable Pastor, L Bisi RPA Unavailable Unavailable Pastor, L Bisi RPA Unavailable Unavailable Pastor, L Bisi RPA Unavailable Unavailable Pastor, L Bisi RPA Unavailable Unavailable Pastor, L Bisi RPA Unavailable Unavailable Pastor, L Bisi RPA Unavailable Unavailable Pastor, L Bisi RPA Unavailable Unavailable Pastor, L Bisi RPA Unavailable Unavailable Pastor, L Bisi RPA Unavailable Unavailable ALEXA, J Mehreen ANP Unavailable Unavailable ALEXA, J Mehreen ANP Unavailable Unavailable ALEXA, J Mehreen ANP Unavailable Unavailable ALEXA, J Mehreen ANP Unavailable Unavailable ALEXA, J Mehreen ANP Unavailable Unavailable ALEXA, J Mehreen ANP Unavailable Unavailable ALEXA, J Mehreen ANP Unavailable Unavailable ALEXA, J Mehreen ANP Unavailable Unavailable ALEXA, J Mehreen ANP Unavailable Unavailable ALEXA, J Mehreen ANP Unavailable Unavailable ALEXA, J Mehreen ANP Unavailable Unavailable ALEXA, J Mehreen ANP Unavailable Unavailable ALEXA, J Mehreen ANP Unavailable Unavailable ALEXA, J Mehreen ANP Unavailable Unavailable ALEXA, J Mehreen ANP Unavailable Unavailable ALEXA, J Mehreen ANP Unavailable Unavailable ALEXA, J Mehreen ANP Unavailable Unavailable ALEXA, J Mehreen ANP Unavailable Unavailable ALEXA, J Mehreen ANP Unavailable Unavailable ALEXA, J Mehreen ANP Unavailable Unavailable ALEXA, J Mehreen ANP Unavailable Unavailable ALEXA, J Mehreen ANP Unavailable Unavailable ALEXA, J Mehreen ANP Unavailable Unavailable ALEXA, J Mehreen ANP Unavailable Unavailable ALEXA, J Mehreen ANP Unavailable Unavailable ALEXA, J Mehreen ANP Unavailable Unavailable ALEXA, J Mehreen ANP Unavailable Unavailable ALEXA, J Mehreen ANP Unavailable Unavailable ALEXA, J Mehreen ANP Unavailable Unavailable ALEXA, J Mehreen ANP Unavailable Unavailable ALEXA, J Mehreen ANP Unavailable Unavailable ALEXA, J Mehreen ANP Unavailable Unavailable ALEXA, J Mehreen ANP Unavailable Unavailable ALEXA, J Mehreen ANP Unavailable Unavailable ALEXA, J Mehreen ANP Unavailable Unavailable ALEXA, J Mehreen ANP Unavailable Unavailable ALEXA, J Mehreen ANP Unavailable Unavailable ALEXA, J Mehreen ANP Unavailable Unavailable ALEXA, J Mehreen ANP Unavailable Unavailable ALEXA, J Mehreen ANP Unavailable Unavailable ALEXA, J Mehreen ANP Unavailable Unavailable ALEXA, J Mehreen ANP Unavailable Unavailable ALEXA, J Mehreen ANP Unavailable Unavailable ALEXA, J Mehreen ANP Unavailable Unavailable ALEXA, J Mehreen ANP Unavailable Unavailable ALEXA, J Mehreen ANP Unavailable Unavailable ALEXA, J Mehreen ANP Unavailable Unavailable ALEXA, J Mehreen ANP Unavailable Unavailable ALEXA, J Mehreen ANP Unavailable Unavailable ALEXA, J Mehreen ANP Unavailable Unavailable ALEXA, J Mehreen ANP Unavailable Unavailable ALEXA, J Mehreen ANP Unavailable Unavailable ALEXA, J Mehreen ANP Unavailable Unavailable ALEXA, J Mehreen ANP Unavailable Unavailable ALEXA, J Mehreen ANP Unavailable Unavailable ALEXA, J Mehreen ANP Unavailable Unavailable ALEXA, J Mehreen ANP Unavailable Unavailable ALEXA, J Mehreen ANP Unavailable Unavailable ALEXA, J Mehreen ANP Unavailable Unavailable ALEXA, J Mehreen ANP Unavailable Unavailable ALEXA, J Mehreen ANP Unavailable Unavailable ALEXA, J Mehreen ANP Unavailable Unavailable ALEXA, J Mehreen ANP Unavailable Unavailable ALEXA, J Mehreen ANP Unavailable Unavailable ALEXA, J Mehreen ANP Unavailable Unavailable ALEXA, J Mehreen ANP Unavailable Unavailable RAMONDL, SUZY STYLES Unavailable Unavailable REINDL, SUZY STYLES Unavailable Unavailable REINDL, SUZY STYLES Unavailable Unavailable REINDL, SUZY STYLES Unavailable Unavailable REINDL, SUZY STYLES Unavailable Unavailable REINDL, SUZY STYLES Unavailable Unavailable REINDL, SUZY STYLES Unavailable Unavailable REINDL, SUZY STYLES Unavailable Unavailable REINDL, SUZY STYLES Unavailable Unavailable REINDL, SUZY STYLES Unavailable Unavailable REINDL, SUZY STYLES Unavailable Unavailable REINDL, SUZY STYLES Unavailable Unavailable REINDL, SUZY STYLES Unavailable Unavailable REINDL, SUZY STYLES Unavailable Unavailable REINDL, SUZY STYLES Unavailable Unavailable REINDL, SUZY STYLES Unavailable Unavailable REINDL, SUZY STYLES Unavailable Unavailable REINDL, SUZY STYLES Unavailable Unavailable REINDL, SUZY STYLES Unavailable Unavailable REINDL, SUZY STYLES Unavailable Unavailable REINDL, SUZY STYLES Unavailable Unavailable REINDL, SUZY STYLES Unavailable Unavailable REINDL, SUZY STYLES Unavailable Unavailable REINDL, SUZY STYLES Unavailable Unavailable REINDL, SUZY STYLES Unavailable Unavailable REINDL, SUZY STYLES Unavailable Unavailable REINDL, SUZY STYLES Unavailable Unavailable REINDL, SUZY STYLES Unavailable Unavailable REINDL, SUZY STYLES Unavailable Unavailable REINDL, SUZY STYLES Unavailable Unavailable REINDL, SUZY STYLES Unavailable Unavailable REINDL, SUZY STYLES Unavailable Unavailable REINDL, SUZY STYLES Unavailable Unavailable REINDL, SUZY STYLES Unavailable Unavailable REINDL, SUZY STYLES Unavailable Unavailable REINDL, SUZY STYLES Unavailable Unavailable REINDL, SUZY STYLES Unavailable Unavailable REINDL, SUZY STYLES Unavailable Unavailable REINDL, SUZY STYLES Unavailable Unavailable REINDL, SUZY STYLES Unavailable Unavailable REINDL, SUZY STYLES Unavailable Unavailable REINDL, SUZY STYLES Unavailable Unavailable REINDL, SUZY STYLES Unavailable Unavailable REINDL, SUZY STYLES Unavailable Unavailable SIERRA, L ZACH PA Unavailable Unavailable SIERRA, L ZACH PA Unavailable Unavailable SIERRA, L ZACH PA Unavailable Unavailable SIERRA, L ZACH PA Unavailable Unavailable SIERRA, L ZACH PA Unavailable Unavailable SIERRA, L ZACH PA Unavailable Unavailable SIERRA, L ZACH PA Unavailable Unavailable SIERRA, L ZACH PA Unavailable Unavailable SIERRA, L ZACH PA Unavailable Unavailable SIERRA, L ZACH PA Unavailable Unavailable SIERRA, L ZACH PA Unavailable Unavailable SIERRA, L ZACH PA Unavailable Unavailable Piero, L Shweta STEAM ROOM ATTENDANT Unavailable Unavailable Piero, L Shweta STEAM ROOM ATTENDANT Unavailable Unavailable Piero, L Shweta STEAM ROOM ATTENDANT Unavailable Unavailable Piero, L Shweta STEAM ROOM ATTENDANT Unavailable Unavailable Piero, L Shweta STEAM ROOM ATTENDANT Unavailable Unavailable Piero, L Shweta STEAM ROOM ATTENDANT Unavailable Unavailable Piero, L Shweta STEAM ROOM ATTENDANT Unavailable Unavailable Piero, L Shweta STEAM ROOM ATTENDANT Unavailable Unavailable Piero, L Shweta STEAM ROOM ATTENDANT Unavailable Unavailable Piero, L Shweta STEAM ROOM ATTENDANT Unavailable Unavailable Piero, L Shweta STEAM ROOM ATTENDANT Unavailable Unavailable Piero, L Shweta STEAM ROOM ATTENDANT Unavailable Unavailable Piero, L Shweta STEAM ROOM ATTENDANT Unavailable Unavailable Piero, L Shweta STEAM ROOM ATTENDANT Unavailable Unavailable Piero, L Shweta STEAM ROOM ATTENDANT Unavailable Unavailable Piero, L Shweta STEAM ROOM ATTENDANT Unavailable Unavailable Piero, L Shweta STEAM ROOM ATTENDANT Unavailable Unavailable Piero, L Shweta STEAM ROOM ATTENDANT Unavailable Unavailable Piero, L Shweta STEAM ROOM ATTENDANT Unavailable Unavailable Piero, L Shweta STEAM ROOM ATTENDANT Unavailable Unavailable Piero, L Shweta STEAM ROOM ATTENDANT Unavailable Unavailable Piero, L Shweta STEAM ROOM ATTENDANT Unavailable Unavailable Re-disclosure Warning The records that you are about to access may contain information from federally-assisted alcohol or drug abuse programs. If such information is present, then the following federally mandated warning applies: This information has been disclosed to you from records protected by federal confidentiality rules (42 CFR part 2). The federal rules prohibit you from making any further disclosure of this information unless further disclosure is expressly permitted by the written consent of the person to whom it pertains or as otherwise permitted by 42 CFR part 2. A general authorization for the release of medical or other information is NOT sufficient for this purpose. The Federal rules restrict any use of the information to criminally investigate or prosecute any alcohol or drug abuse patient.The records that you are about to access may contain highly sensitive health information, the redisclosure of which is protected by Article 27-F of the [facility] Public Health law. If you continue you may have access to information: Regarding HIV / AIDS; Provided by facilities licensed or operated by the [facility] Office of Mental Health; or Provided by the [facility] Office for People With Developmental Disabilities. If such information is present, then the following [facility] mandated warning applies: This information has been disclosed to you from confidential records which are protected by state law. State law prohibits you from making any further disclosure of this information without the specific written consent of the person to whom it pertains, or as otherwise permitted by law. Any unauthorized further disclosure in violation of state law may result in a fine or half-way sentence or both. A general authorization for the release of medical or other information is NOT sufficient authorization for further disc losure. Family History Family Member Name Family Member Gender Family Member Status Date o f Status Description Data Source(s) Unknown Male Problem [facility] ([facility] Unknown Unknown Problem [facility] ([facility] Unknown Male Problem [facility] Unknown Female Problem [facility] ([facility]) Unknown Female Problem [facility] ([facility]) Unknown Female Problem [facility] ([facility]) Encounters Encounter Providers Location Date Indications Data Source(s ) Outpatient Attender: ZACH MORALES Main Office 03/13/2020 0 1:00:00 PM EST [facility] ([facility] Outpatient Attender: Coco Hopper 01:30:00 PM EST MED[facility] ([facility] ) Outpatient Attender: SUZY Nice/Sommer/Marcus/Ramon khalil 11/15/2019 01:45:00 PM EDT [facility] ([facility]) Outpatient Attender: Coco Hopper 03:00:00 PM EDT [facility] ([facility] ) Outpatient Attender: Coco Hopper 02:00:00 PM EDT [facility] ([facility] ) Outpatient Attender: Shweta Thompsonang/[place]/Marcus/Reindl 09/20/2019 01:30:00 PM EDT [facility] Outpatient Attender: Shawanda MORALES Main Office 08/28/2019 11:30:0 0 AM EDT [facility] ([facility]) Outpatient Attender: Coco Hopper 08:30:00 AM EDT [facility] ([facility] ) Outpatient Attender: Bisi Pastor RPA Arlet/[place]/Marcus/R eindl 07/26/2019 10:30:00 AM EDT [facility] Outpatient Attender: Bisi Pastor RPA [place]/Marcus/R eindl 07/05/2019 10:15:00 AM EDT [facility] Outpatient Attender: Coco Hopper 01:45:00 PM EDT [facility] ([facility] ) Outpatient Attender: Sita Nice/[place]/Marcus/ Reindl 05/22/2019 09:30:00 AM EDT [facility] Outpatient Attender: Coco Hopper 09:00:00 AM EDT [facility] ([facility] ) Outpatient Referrer: Mehreen DIAZ 05/08/2019 02:35:00 PM EDT [facility] Outpatient Referrer: Mehreen DIAZ 03/01/2019 02:21:00 PM EST [facility] Immunizations Vaccine Date Status Description Data Source(s) Influenza, injectable, MDCK, preservative free, juan antonio valent 11/13/2019 02:59:00 PM EDT completed [facility] ([place] [facility]) Medications Medication Brand Name Start Date Product Form Dose Route Admi nistrative Instructions Pharmacy Instructions Status Indications Reaction Description Data Source(s) BLOOD SUGAR DIAGNOSTIC 03/22/2020 12:00:00 AM EST strip 200 USE TWO TIMES A DAY DAILY USE TWO TIMES A DAY DAILY SOLD: 03/22/2020 [facility] 50 mg 03/21/2020 12:00:00 AM EST tablet 180 TAKE ONE TABLET BY MOUTH TWICE A DAY TAKE ONE TABLET BY MOUTH TWICE A DAY SOLD: 03/22/2020 [facility] 100 unit/mL (3 mL) 03/19/2020 12:00:00 AM EST insulin pen 45 INJECT 16UNITS UNDER SKIN AT BREAKFAST 20UNITS AT LUNCH & SUPPER MAX 60UNITS/DAY INJECT 16UNITS UNDER SKIN AT BREAKFAST 20UNITS AT LUNCH & SUPPER MAX 60UNITS/DAY SOLD: 03/19/2020 [facility] 160-4.5 mcg/actuation 03/05/2020 12:00:00 AM EST HFA aerosol inhaler 10 INHALE TWO PUFFS BY MOUTH TWICE A DAY INHALE TWO PUFFS BY MOUTH TWICE A DAY SOLD: 03/05/2020 [facility] atorvastatin 40 MG Oral Tablet ATORVASTATIN CALCIUM 03/05/2020 1 2:00:00 AM EST tablet 90 TAKE ONE TABLET BY MOUTH EVERY D AY TAKE ONE TABLET BY MOUTH EVERY DAY SOLD: 03/05/2020 [facility] 100 unit/mL 03/05/2020 12:00:00 AM EST insulin pen 45 INJECT 16UNITS BEFORE BREAKFAST;20UNITS BEFORE LUNCH & SUPPER MAX=60UNITS/DAY INJECT 16UNITS BEFORE BREAKFAST;20UNITS BEFORE LUNCH & SUPPER MAX=60UNITS/DAY SOLD: 03/05/2020 [facility] 100 unit/mL (3 mL) 03/01/2020 12:00:00 AM EST insulin pen 15 INJECT 40 UNITS UNDER THE SKIN EVERY MORNING INJECT 40 UNITS UNDER THE SKIN EVERY MORNING SOLD: 03/02/2020 [facility] 75 mg 02/20/2020 12:00:00 AM EST tablet 30 TAKE ONE TABLET BY MOUTH ONCE DAILY TAKE ONE TABLET BY MOUTH ONCE DAILY SOLD: 02/20/2020 [facility] 75 mg 02/20/2020 12:00:00 AM EST tablet 30 TAKE ONE TABLET BY MOUTH ONCE DAILY TAKE ONE TABLET BY MOUTH ONCE DAILY SOLD: 03/22/2020 [facility] 20 mg 02/20/2020 12:00:00 AM EST capsule,delayed release (DR/EC) 90 TAKE ONE CAPSULE BY MOUTH EVERY DAY TAKE ONE CAPSULE BY MOUTH EVERY DAY SOLD: 02/20/2020 [facility] 100 unit/mL (3 mL) 02/05/2020 12:00:00 AM EST insulin pen 15 INJECT 40 UNITS UNDER THE SKIN EVERY MORNING INJECT 40 UNITS UNDER THE SKIN EVERY MORNING SOLD: 02/05/2020 [facility] 32 gauge x 5/32" 02/02/2020 12:00:00 AM EST needle 300 DIRECTED FOUR TIMES A DAY DIRECTED FOUR TIMES A DAY SOLD: 02/03/2020 [facility] Capsacin Cream OTC 01/22/2020 12:00:00 AM EST active [facility] ([facility]) Magnesium 01/22/2020 12:00:00 AM EST ORAL active [facility] ([facility]) Calcitriol 0.22855 MG Oral Capsule Calcitriol 01/22/2020 12:00:[address] active [facility] ([facility]) 3 ML Insulin Lispro 100 UNT/ML Pen Injector [Humalog] Humfred Coburn 01/22/2020 12:00:00 AM EST SUBCUTANEOUS active [facility] ([facility]) 100 unit/mL 12/31/2019 12:00:00 AM EST insulin pen 15 INJECT 20 UNITS UNDER THE SKIN BEFORE MEALS MAXIMUM DAILY DOSE = 60 UNITS INJECT 20 UNITS UNDER THE SKIN BEFORE MEALS MAXIMUM DAILY DOSE = 60 UNITS SOLD: 01/01/2020 [facility] 100 unit/mL 12/31/2019 12:00:00 AM EST insulin pen 15 INJECT 20 UNITS UNDER THE SKIN BEFORE MEALS MAXIMUM DAILY DOSE = 60 UNITS INJECT 20 UNITS UNDER THE SKIN BEFORE MEALS MAXIMUM DAILY DOSE = 60 UNITS SOLD: 02/05/2020 [facility] Sulfamethoxazole 400 MG / Trimethoprim 80 MG Oral Tabl et 400-80 mg SULFAMETHOXAZOLE/TRIMETHOPRIM 12/10/2019 12:00:00 AM EST tablet 10 TAKE ONE TABLET BY MOUTH TWICE A DAY TAKE ONE TABLET BY MOUTH TWICE A DAY SOLD: 12/10/2019 [facility] 20 mg 12/06/2019 12:00:00 AM EDT tablet 90 TAKE TWO TABLETS BY MOUTH ON NON- DIALYSIS DAYS DURING THE WEEK TAKE TWO TABLETS BY MOUTH ON NON-DIALYSI S DAYS DURING THE WEEK SOLD: 03/05/2020 [facility] 20 mg 12/06/2019 12:00:00 AM EDT tablet 90 TAKE TWO TABLETS BY MOUTH ON NON- DIALYSIS DAYS DURING THE WEEK TAKE TWO TABLETS BY MOUTH ON NON-DIALYSI S DAYS DURING THE WEEK SOLD: 12/07/2019 [facility] 32 gauge x 5/32" 11/27/2019 12:00:00 AM EDT needle 300 USE DIRECTED FOUR TIMES A DAY USE DIRECTED FOUR TIMES A DAY SOLD: 11/27/2019 [facility] 20 mg 11/14/2019 12:00:00 AM EDT capsule,delayed release (DR/EC) 90 TAKE ONE CAPSULE BY MOUTH ONCE DAILY TAKE ONE CAPSULE BY MOUTH ONCE DAILY SOLD: 11/14/2019 [facility] 90 mcg/actuation 11/14/2019 12:00:00 AM EDT HFA aerosol inha ler 54 INHALE TWO PUFFS BY MOUTH FOUR TIMES A DAY NEEDED INHALE TWO PUFFS BY MOUTH FOUR TIMES A DAY NEEDED SOLD: 11/14/2019 [facility] Administration Of Flu Vaccine 11/13/2019 12:00:00 AM EDT completed [facility] ([place] [facility]) Medication administered onsite 4 mg 11/06/2019 12:00:00 AM EDT tablet,disintegrating 6 DISSOLVE ONE TABLET ON TONGUE EVERY 12 HOURS NEEDED FOR NAUSEA AND VOMITING DISSOLVE ONE TABLET ON TONGUE EVERY 12 HOURS NEEDED FOR NAUSEA AND VOMITING SOLD: 11/06/2019 [facility] 75 mg 11/02/2019 12:00:00 AM EDT tablet 30 TAKE ONE TABLET BY MOUTH ONCE DAILY TAKE ONE TABLET BY MOUTH ONCE DAILY SOLD: 11/02/2019 [facility] 75 mg 11/02/2019 12:00:00 AM EDT tablet 30 TAKE ONE TABLET BY MOUTH ONCE DAILY TAKE ONE TABLET BY MOUTH ONCE DAILY SOLD: 12/07/2019 [facility] clopidogrel 75 MG Oral Tablet Clopidogrel Bisulfate 10/16/2019 1 2:00:00 AM EDT active [facility] ( [facility] Levothyroxine Sodium 0.125 MG Oral Tablet Levothyroxine Sodi um 10/03/2019 12:00:00 AM EDT active M EDENT ([facility]) 100 unit/mL (3 mL) 10/03/2019 12:00:00 AM EDT insulin pen 15 INJECT 40 UNITS UNDER THE SKIN EVERY MORNING INJECT 40 UNITS UNDER THE SKIN EVERY MORNING SOLD: 10/03/2019 [facility] 125 mcg 10/03/2019 12:00:00 AM EDT tablet 90 TAKE 1 TABLET BY MOUTH DAILY BEFORE BREAKFAST ON AN EMPTY STOMACH TAKE 1 TABLET BY MOUTH DAILY BEFORE BREAKFAST ON AN EMPTY STOMACH SOLD: 10/03/2019 [facility] 125 mcg 10/03/2019 12:00:00 AM EDT tablet 90 TAKE 1 TABLET BY MOUTH DAILY BEFORE BREAKFAST ON AN EMPTY STOMACH TAKE 1 TABLET BY MOUTH DAILY BEFORE BREAKFAST ON AN EMPTY STOMACH SOLD: 12/28/2019 [facility] 125 mcg 10/03/2019 12:00:00 AM EDT tablet 90 TAKE 1 TABLET BY MOUTH DAILY BEFORE BREAKFAST ON AN EMPTY STOMACH TAKE 1 TABLET BY MOUTH DAILY BEFORE BREAKFAST ON AN EMPTY STOMACH SOLD: 03/22/2020 [facility] 100 unit/mL (3 mL) 10/03/2019 12:00:00 AM EDT insulin pen 15 INJECT 40 UNITS UNDER THE SKIN EVERY MORNING INJECT 40 UNITS UNDER THE SKIN EVERY MORNING SOLD: 11/29/2019 [facility] 100 unit/mL (3 mL) 10/03/2019 12:00:00 AM EDT insulin pen 15 INJECT 40 UNITS UNDER THE SKIN EVERY MORNING INJECT 40 UNITS UNDER THE SKIN EVERY MORNING SOLD: 01/01/2020 [facility] 3 ML Insulin Glargine 100 UNT/ML Pen Injector [Lantus] Lanfloryu s Tatyana 10/02/2019 12:00:00 AM EDT active MEDENT ([facility]) 100 unit/mL 09/27/2019 12:00:00 AM EDT insulin pen 15 INJECT 20 UNITS UNDER THE SKIN BEFORE MEALS MAXIMUM DAILY DOSE = 60 UNITS INJECT 20 UNITS UNDER THE SKIN BEFORE MEALS MAXIMUM DAILY DOSE = 60 UNITS SOLD: 09/27/2019 [facility] 100 unit/mL 09/27/2019 12:00:00 AM EDT insulin pen 15 INJECT 20 UNITS UNDER THE SKIN BEFORE MEALS MAXIMUM DAILY DOSE = 60 UNITS INJECT 20 UNITS UNDER THE SKIN BEFORE MEALS MAXIMUM DAILY DOSE = 60 UNITS SOLD: 11/02/2019 [facility] 100 unit/mL 09/27/2019 12:00:00 AM EDT insulin pen 15 INJECT 20 UNITS UNDER THE SKIN BEFORE MEALS MAXIMUM DAILY DOSE = 60 UNITS INJECT 20 UNITS UNDER THE SKIN BEFORE MEALS MAXIMUM DAILY DOSE = 60 UNITS SOLD: 11/27/2019 [facility] CPAP 09/18/2019 12:00:00 AM EDT active MEDENT ([facility], ) atorvastatin 40 MG Oral Tablet ATORVASTATIN CALCIUM 09/12/2019 1 2:00:00 AM EDT tablet 90 TAKE ONE TABLET BY MOUTH EVERY D AY TAKE ONE TABLET BY MOUTH EVERY DAY SOLD: 12/07/2019 [facility] 40 mg 09/12/2019 12:00:00 AM EDT tablet 90 TAKE ONE TABLET BY MOUTH EVERY DAY TAKE ONE TABLET BY MOUTH EVERY DAY SOLD: 09/12/2019 [facility] 32 gauge x 5/32" 09/04/2019 12:00:00 AM EDT needle 300 USE DIRECTED FOUR TIMES A DAY USE DIRECTED FOUR TIMES A DAY SOLD: 09/04/2019 [facility] 3 ML Insulin Lispro 100 UNT/ML Pen Injector [Humalog] Humalo g Kwikpen 08/27/2019 12:00:00 AM EDT active MEDENT ([facility]) 3 ML Insulin Glargine 100 UNT/ML Pen Injector [Lantus] Lantu s Solostar 08/27/2019 12:00:00 AM EDT active MED[facility] ([facility]) Ipratropium [place] 0.2 MG/ML Inhalant Solution Ipratropium [place] 08/27/2019 12:00:00 AM EDT active M EDENT ([facility] 100 unit/mL (3 mL) 08/22/2019 12:00:00 AM EDT insulin pen 15 INJECT 34 UNITS UNDER THE SKIN EVERY MORNING INJECT 34 UNITS UNDER THE SKIN EVERY MORNING SOLD: 08/22/2019 [facility] 0.03 % 08/14/2019 12:00:00 AM EDT spray,non-aerosol 30 SPARY 1-2 SPRAYS IN EACH NOSTRIL 2-3 TIMES A DAY NEEDED SPARY 1-2 SPRAYS IN EACH NOSTRIL 2-3 TIMES A DAY NEEDED SOLD: 10/10/2019 [facility] 0.03 % 08/14/2019 12:00:00 AM EDT spray,non-aerosol 30 SPARY 1-2 SPRAYS IN EACH NOSTRIL 2-3 TIMES A DAY NEEDED SPARY 1-2 SPRAYS IN EACH NOSTRIL 2-3 TIMES A DAY NEEDED SOLD: 08/15/2019 [facility] Ipratropium [place] Ipratropium [place] 08/14/2019 12:00:00 AM EDT active [facility] 3 ML Insulin Glargine 100 UNT/ML Pen Injector [Lantus] Lantu s Heydiostar 08/14/2019 12:00:00 AM EDT SUBCUTANEOUS completed ROSE ([facility]) 0.03 % 08/14/2019 12:00:00 AM EDT spray,non-aerosol 30 SPARY 1-2 SPRAYS IN EACH NOSTRIL 2-3 TIMES A DAY NEEDED SPARY 1-2 SPRAYS IN EACH NOSTRIL 2-3 TIMES A DAY NEEDED SOLD: 03/23/2020 [facility] 100 unit/mL 08/06/2019 12:00:00 AM EDT insulin pen 15 INJECT 20 UNITS UNDER THE SKIN BEFORE MEALS MAXIMUM DAILY DOSE = 60 UNITS INJECT 20 UNITS UNDER THE SKIN BEFORE MEALS MAXIMUM DAILY DOSE = 60 UNITS SOLD: 08/06/2019 [facility] 0.15 % (205.5 mcg) 08/06/2019 12:00:00 AM EDT spray,non-aero heydi 30 SPRAY 2 SPRAYS IN EACH NOSTRIL ONCE A DAY SPRAY 2 SPRAYS IN EACH NOSTRIL ONCE A DAY SOLD: 08/06/2019 [facility] 20 mg 08/06/2019 12:00:00 AM EDT capsule,delayed release (DR/EC) 90 TAKE ONE CAPSULE BY MOUTH EVERY DAY TAKE ONE CAPSULE BY MOUTH EVERY DAY SOLD: 08/06/2019 [facility] 100 unit/mL 08/06/2019 12:00:00 AM EDT insulin pen 15 INJECT 20 UNITS UNDER THE SKIN BEFORE MEALS MAXIMUM DAILY DOSE = 60 UNITS INJECT 20 UNITS UNDER THE SKIN BEFORE MEALS MAXIMUM DAILY DOSE = 60 UNITS SOLD: 09/03/2019 [facility] 75 mg 07/30/2019 12:00:00 AM EDT tablet 30 TAKE 1 TABLET BY MOUTH DAILY TAKE 1 TABLET BY MOUTH DAILY SOLD: 07/30/2019 [facility] 75 mg 07/30/2019 12:00:00 AM EDT tablet 30 TAKE 1 TABLET BY MOUTH DAILY TAKE 1 TABLET BY MOUTH DAILY SOLD: 08/31/2019 [facility] 75 mg 07/30/2019 12:00:00 AM EDT tablet 30 TAKE 1 TABLET BY MOUTH DAILY TAKE 1 TABLET BY MOUTH DAILY SOLD: 10/10/2019 [facility] 100 unit/mL (3 mL) 07/10/2019 12:00:00 AM EDT insulin pen 15 INJECT 24 UNITS SUBCUTANEOUSLY EVERY MORNING INJECT 24 UNITS SUBCUTANEOUSLY EVERY MORNING SOLD: 07/10/2019 [facility] 75 mg 07/04/2019 12:00:00 AM EDT tablet 30 TAKE 1 TABLET BY MOUTH DAILY TAKE 1 TABLET BY MOUTH DAILY SOLD: 07/04/2019 [facility] 20 mg 06/22/2019 12:00:00 AM EDT tablet 90 TAKE 2 TABS. BY MOUTH DIRECTED ON NON-DIALYSIS DAYS DURING THE WEEK TAKE 2 TABS. BY MOUTH DIRECTED ON NON - DIALYSIS DAYS DURING THE WEEK SOLD: 09/12/2019 [facility] 20 mg 06/22/2019 12:00:00 AM EDT tablet 90 TAKE 2 TABS. BY MOUTH DIRECTED ON NON-DIALYSIS DAYS DURING THE WEEK TAKE 2 TABS. BY MOUTH DIRECTED ON NON - DIALYSIS DAYS DURING THE WEEK SOLD: 06/22/2019 [facility] 3 ML Insulin Glargine 100 UNT/ML Pen Injector [Lantus] Lantu s Solostar 06/07/2019 12:00:00 AM EDT SUBCUTANEOUS completed MED[facility] ([facility]) 32 gauge x 5/32" 06/04/2019 12:00:00 AM EDT needle 300 USE DIRECTED FOUR TIMES A DAY USE DIRECTED FOUR TIMES A DAY SOLD: 06/04/2019 [facility] 100 unit/mL 06/04/2019 12:00:00 AM EDT insulin pen 15 INJECT 20 UNITS UNDER THE SKIN BEFORE MEALS MAX 60 UNITS PER DAY INJECT 20 UNITS UNDER THE SKIN BEFORE MEALS MAX 60 UNITS PER DAY SOLD: 06/04/2019 [facility] 100 unit/mL 06/04/2019 12:00:00 AM EDT insulin pen 15 INJECT 20 UNITS UNDER THE SKIN BEFORE MEALS MAX 60 UNITS PER DAY INJECT 20 UNITS UNDER THE SKIN BEFORE MEALS MAX 60 UNITS PER DAY SOLD: 06/29/2019 [facility] BD Uf Sulma Pen Needle [id number] 06/03/2019 12:00:00 AM EDT active MEDENT ([facility]) 1.5 mg/0.5 mL 05/11/2019 12:00:00 AM EDT pen injector 6 INJECT CONTENTS OF 1 SYRINGE UNDER THE SKIN ONCE A WEEK INJECT CONTENTS OF 1 SYRINGE UNDER THE S KIN ONCE A WEEK SOLD: 05/11/2019 [facility] 0.5 ML dulaglutide 3 MG/ML Auto-Injector [Trulicity] Trulici ty 05/10/2019 12:00:00 AM EDT active M EDENT ([facility]) clopidogrel 75 MG Oral Tablet Clopidogrel Bisulfate 05/10/2019 1 2:00:00 AM EDT ORAL active MEDENT ( [facility]) 3 ML Insulin Glargine 100 UNT/ML Pen Injector [Lantus] Lantu s Solostar 05/10/2019 12:00:00 AM EDT SUBCUTANEOUS completed MEDENT ([facility]) 100 unit/mL (3 mL) 05/10/2019 12:00:00 AM EDT insulin pen 15 INJECT 20 UNITS UNDER THE SKIN EVERY MORNING INJECT 20 UNITS UNDER THE SKIN EVERY MORNING SOLD: 05/10/2019 [facility] 112 mcg 05/02/2019 12:00:00 AM EDT tablet 90 TAKE ONE TABLET BY MOUTH EVERY DAY BEFORE BREAKFAST ON AN EMPTY STOMACH TAKE ONE TABLET BY MOUTH EVERY DAY BEFORE BREAKFAST ON AN EMPTY STOMACH SOLD: 08/31/2019 [facility] 112 mcg 05/02/2019 12:00:00 AM EDT tablet 90 TAKE ONE TABLET BY MOUTH EVERY DAY BEFORE BREAKFAST ON AN EMPTY STOMACH TAKE ONE TABLET BY MOUTH EVERY DAY BEFORE BREAKFAST ON AN EMPTY STOMACH SOLD: 05/07/2019 [facility] 100 unit/mL 04/04/2019 12:00:00 AM EST insulin pen 15 INJECT 20UNITS UNDER SKIN BEFORE MEALS MAX 60UNITS/DAY INJECT 20UNITS UNDER SKIN BEFORE MEALS M AX 60UNITS/DAY SOLD: 04/29/2019 [facility] 100 unit/mL 04/04/2019 12:00:00 AM EST insulin pen 15 INJECT 20UNITS UNDER SKIN BEFORE MEALS MAX 60UNITS/DAY INJECT 20UNITS UNDER SKIN BEFORE MEALS M AX 60UNITS/DAY SOLD: 05/07/2019 [facility] 75 mg 03/27/2019 12:00:00 AM EST tablet 30 TAKE 1 TABLET BY MOUTH DAILY TAKE 1 TABLET BY MOUTH DAILY SOLD: 06/04/2019 [facility] 75 mg 03/27/2019 12:00:00 AM EST tablet 30 TAKE 1 TABLET BY MOUTH DAILY TAKE 1 TABLET BY MOUTH DAILY SOLD: 05/07/2019 [facility] 100 unit/mL (3 mL) 03/27/2019 12:00:00 AM EST insulin pen 6 INJECT 10 UNITS UNDER THE SKIN DAILY INJECT 10 UNITS UNDER THE SKIN DAILY SOLD: 03/27/2019 [facility] 75 mg 03/27/2019 12:00:00 AM EST tablet 30 TAKE 1 TABLET BY MOUTH DAILY TAKE 1 TABLET BY MOUTH DAILY SOLD: 03/27/2019 [facility] 3 ML Insulin Glargine 100 UNT/ML Pen Injector [Lantus] Paulinou antoine Joe 03/27/2019 12:00:00 AM EST completed [facility] 50 mg 03/16/2019 12:00:00 AM EST tablet 180 TAKE ONE TABLET BY MOUTH TWICE A DAY TAKE ONE TABLET BY MOUTH TWICE A DAY SOLD: 03/16/2019 [facility] 50 mg 03/16/2019 12:00:00 AM EST tablet 180 TAKE ONE TABLET BY MOUTH TWICE A DAY TAKE ONE TABLET BY MOUTH TWICE A DAY SOLD: 09/28/2019 [facility] 33 gauge 03/16/2019 12:00:00 AM EST misc 200 TEST TWO TIMES A DAY TEST TWO TIMES A DAY SOLD: 06/29/2019 [facility] BLOOD SUGAR DIAGNOSTIC 03/16/2019 12:00:00 AM EST strip 200 DIRECTED TWO TIMES A DAY TO CHECK BLOOD SUGAR DIRECTED TWO TIMES A DAY TO CHECK BLO OD SUGAR SOLD: 03/16/2019 [facility] 33 gauge 03/16/2019 12:00:00 AM EST misc 200 TEST TWO TIMES A DAY TEST TWO TIMES A DAY SOLD: 10/10/2019 [facility] 50 mg 03/16/2019 12:00:00 AM EST tablet 180 TAKE ONE TABLET BY MOUTH TWICE A DAY TAKE ONE TABLET BY MOUTH TWICE A DAY SOLD: 12/28/2019 [facility] 160-4.5 mcg/actuation 03/16/2019 12:00:00 AM EST HFA aerosol inhaler 10 INHALE TWO PUFFS BY MOUTH TWICE A DAY INHALE TWO PUFFS BY MOUTH TWICE A DAY SOLD: 01/01/2020 [facility] 160-4.5 mcg/actuation 03/16/2019 12:00:00 AM EST HFA aerosol inhaler 10 INHALE TWO PUFFS BY MOUTH TWICE A DAY INHALE TWO PUFFS BY MOUTH TWICE A DAY SOLD: 08/15/2019 [facility] BLOOD SUGAR DIAGNOSTIC 03/16/2019 12:00:00 AM EST strip 200 DIRECTED TWO TIMES A DAY TO CHECK BLOOD SUGAR DIRECTED TWO TIMES A DAY TO CHECK BLO OD SUGAR SOLD: 12/28/2019 [facility] 160-4.5 mcg/actuation 03/16/2019 12:00:00 AM EST HFA aerosol inhaler 10 INHALE TWO PUFFS BY MOUTH TWICE A DAY INHALE TWO PUFFS BY MOUTH TWICE A DAY SOLD: 09/21/2019 [facility] 160-4.5 mcg/actuation 03/16/2019 12:00:00 AM EST HFA aerosol inhaler 10 INHALE TWO PUFFS BY MOUTH TWICE A DAY INHALE TWO PUFFS BY MOUTH TWICE A DAY SOLD: 07/02/2019 [facility] 50 mg 03/16/2019 12:00:00 AM EST tablet 180 TAKE ONE TABLET BY MOUTH TWICE A DAY TAKE ONE TABLET BY MOUTH TWICE A DAY SOLD: 06/21/2019 [facility] BLOOD SUGAR DIAGNOSTIC 03/16/2019 12:00:00 AM EST strip 200 DIRECTED TWO TIMES A DAY TO CHECK BLOOD SUGAR DIRECTED TWO TIMES A DAY TO CHECK BLO OD SUGAR SOLD: 06/29/2019 [facility] 33 gauge 03/16/2019 12:00:00 AM EST misc 200 TEST TWO TIMES A DAY TEST TWO TIMES A DAY SOLD: 03/16/2019 [facility] BLOOD SUGAR DIAGNOSTIC 03/16/2019 12:00:00 AM EST strip 200 DIRECTED TWO TIMES A DAY TO CHECK BLOOD SUGAR DIRECTED TWO TIMES A DAY TO CHECK BLO OD SUGAR SOLD: 09/28/2019 [facility] 160-4.5 mcg/actuation 03/16/2019 12:00:00 AM EST HFA aerosol inhaler 10 INHALE TWO PUFFS BY MOUTH TWICE A DAY INHALE TWO PUFFS BY MOUTH TWICE A DAY SOLD: 05/25/2019 [facility] 160-4.5 mcg/actuation 03/16/2019 12:00:00 AM EST HFA aerosol inhaler 10 INHALE TWO PUFFS BY MOUTH TWICE A DAY INHALE TWO PUFFS BY MOUTH TWICE A DAY SOLD: 03/16/2019 [facility] 100 unit/mL 02/27/2019 12:00:00 AM EST insulin pen 15 INJECT 20 UNITS UNDER THE SKIN BEFORE MEALS MAXIMUM DAILY DOSE = 60 UNITS INJECT 20 UNITS UNDER THE SKIN BEFORE MEALS MAXIMUM DAILY DOSE = 60 UNITS SOLD: 02/27/2019 [facility] 32 gauge x 5/32" 02/26/2019 12:00:00 AM EST needle 300 USE DIRECTED FOUR TIMES A DAY USE DIRECTED FOUR TIMES A DAY SOLD: 02/26/2019 [facility] LANCETS 02/24/2019 12:00:00 AM EST misc 200 TEST TWO TIMES A DAY TEST TWO TIMES A DAY SOLD: 02/25/2019 [facility] 500-125 mg 02/24/2019 12:00:00 AM EST tablet 10 TAKE ONE TABLET BY MOUTH EVERY DAY TAKE ONE TABLET BY MOUTH EVERY DAY SOLD: 02/25/2019 [facility] 40 mg 02/22/2019 12:00:00 AM EST tablet 90 TAKE ONE TABLET BY MOUTH EVERY DAY TAKE ONE TABLET BY MOUTH EVERY DAY SOLD: 06/04/2019 [facility] 40 mg 02/22/2019 12:00:00 AM EST tablet 90 TAKE ONE TABLET BY MOUTH EVERY DAY TAKE ONE TABLET BY MOUTH EVERY DAY SOLD: 02/22/2019 [facility] 75 mg 02/20/2019 12:00:00 AM EST tablet 30 TAKE ONE TABLET BY MOUTH EVERY DAY TAKE ONE TABLET BY MOUTH EVERY DAY SOLD: 02/22/2019 [facility] 112 mcg 02/20/2019 12:00:00 AM EST tablet 90 TAKE ONE TABLET BY MOUTH EVERY MORNING ON AN EMPTY STOMACH TAKE ONE TABLET BY MOUTH EVERY MORNING O N AN EMPTY STOMACH SOLD: 02/22/2019 [facility] Insurance Providers Payer name Policy type / Coverage type Policy ID Covered libertarian ID Covered libertarian's relationship to crump Policy Crump Plan Information [facility] OPTIONS [id number] SP [id number] MEDICARE [id number] SP [id number] [id number] AAR HEALTH CARE OPTIONS [id number] SP [id number] AAR O [id number] S [id number] MEDICARE C [id number] S [id number] [place] [id number] SP [id number] WELLCARE [id number] SP [id number] MEDICARE [id number] SP [id number] C99 WELLCARE [id number] SP [id number] Ghi FHP Medigap Part B [id number] Self 0AN [id number] Medicaid Medigap Part B [id number] Self [id number] Medicare Natl Govt Servic Medicare Primary [id number] Self [id number] Medicaid Medigap Part B [id number] Self [id number] Wellcare/Todays Optr Commercial [id number] Self [id number] WELLCARE O [id number] S [id number] Ghi FHP Medigap Part B [id number] Self 0AN [id number] Medicaid Medigap Part B [id number] Self [id number] Medicare [place]l Govt Servic Medicare Primary [id number] Self [id number] Medicaid Medigap Part B [id number] Self [id number] WELLCARE [id number] SP [id number] Medicare - NGS Medicare Primary [id number] Self [id number] Medicare - NGS Medicare Primary [id number] Self [id number] [place] Part [place] [id number] Self [id number] [place] Commercial [id number] Self [id number] Wellcare Commercial [id number] Self [id number] TODAYS OPTIONS [id number] SP [id number] MEDICARE [id number] SP [id number] A Today's Options Ppo Commercial [id number] Self [id number] Wellcare MCR - To Ppo Commercial [id number] Self [id number] Today's Options Ppo Commercial [id number] Self [id number] Wellcare MCR - To Ppo Commercial [id number] Self [id number] Ghi FHP Medigap Part B [id number] Self 0AN [id number] Medicaid Medigap Part B [id number] Self [id number] Medicare Natl Govt Servic Medicare Primary [id number] Self [id number] Medicaid Medigap Part B [id number] Self [id number] WELLCARE [id number] SP [id number] Ghi FHP Medigap Part B [id number] Self 0AN [id number] Medicaid Medigap Part B [id number] Self [id number] Medicare [place] Govt Servic Medicare Primary [id number] Self [id number] Medicaid Medigap Part B [id number] Self [id number] Todays Option Medicare Commercial [id number] Self [id number] PHCS (pr) Commercial [id number] Self [id number] [place] [id number] Self [id number] Todays Options Commercial [id number] Self [id number] PHCS (pr) Commercial [id number] Self [id number] [place] Med[place] B [id number] Self [id number] Todays Options Commercial [id number] Self [id number] Medicare - NGS Medicare Primary [id number] Self [id number] Medicare - NGS Medicare Primary [id number] Self [id number] [place] [id number] Self [id number] [place] Commercial [id number] Self [id number] PHCS (pr) Commercial [id number] Self [id number] [place] Med[place] Part B [id number] Self [id number] Todays Options Commercial [id number] Self [id number] Ghi P Medigap Part B [id number] Self 0AN [id number] Medicaid Medigap Part B [id number] Self [id number] Medicare [place] Govt Servic Medicare Primary [id number] Self [id number] Medicaid Medigap Part B [id number] Self [id number] Todays Option Medicare Commercial [id number] Self [id number] Ghi FHP Medigap Part B [id number] Self 0AN [id number] Medicaid Medigap Part B [id number] Self [id number] Medicare [place]l Govt Servic Medicare Primary [id number] Self [id number] Medicaid Medigap Part B [id number] Self [id number] Todays Option Medicare Commercial [id number] Self [id number] Medicare - NGS Medicare Primary [id number] Self [id number] Medicare - NGS Medicare Primary [id number] Self [id number] [place] [id number] Self [id number] [place] Commercial [id number] Self [id number] TODAYS OPTIONS/EQUATORIAL GUINEAN O [id number] S [id number] Ghi FHP Medigap Part B [id number] Self 0AN [id number] Medicaid Medigap Part B [id number] Self [id number] Medicare Natl Govt Servic Medicare Primary [id number] Self [id number] Medicaid Medigap Part B [id number] Self [id number] Todays Option Medicare Commercial [id number] Self [id number] Today's Options Medicare Commercial [id number] Self [id number] Ghi FHP Medigap Part B [id number] Self 0AN [id number] Medicaid Medigap Part B [id number] Self [id number] Medicare Natl Govt Servic Medicare Primary [id number] Self [id number] Medicaid Medigap Part B [id number] Self [id number] Todays Option Medicare Commercial [id number] Self [id number] Today's Options Medicare Commercial [id number] Self [id number] Today's Options Medicare Commercial [id number] Self [id number] Medicare - NGS Medicare Primary [id number] Self [id number] Medicare - NGS Medicare Primary [id number] Self [id number] [place] [id number] Self [id number] [place] Commercial [id number] Self [id number] Ghi FHP Medigap Part B [id number] Self 0AN [id number] Medicaid Medigap Part B [id number] Self [id number] Medicare [place] Govt Servic Medicare Primary [id number] Self [id number] Medicaid Medigap Part B [id number] Self [id number] Todays Option Medicare Commercial [id number] Self [id number] Ghi FHP Medigap Part B [id number] Self 0AN [id number] Medicaid Medigap Part B [id number] Self [id number] Medicare [place]l Govt Servic Medicare Primary [id number] Self [id number] Medicaid Medigap Part B [id number] Self [id number] Todays Option Medicare Commercial [id number] Self [id number] Ghi FHP Medigap Part B [id number] Self 0AN [id number] Medicaid Medigap Part B [id number] Self [id number] Medicare [place]l Govt Servic Medicare Primary [id number] Self [id number] Medicaid Medigap Part B [id number] Self [id number] Todays Option Medicare Commercial [id number] Self [id number] Ghi FHP Medigap Part B [id number] Self 0AN [id number] Medicaid Medigap Part B [id number] Self [id number] Medicare Natl Govt Servic Medicare Primary [id number] Self [id number] Medicaid Medigap Part B [id number] Self [id number] Todays Option Medicare Commercial [id number] Self [id number] Ghi FHP Medigap Part B [id number] Self 0AN [id number] Medicaid Medigap Part B [id number] Self [id number] Medicare [place] Govt Servic Medicare Primary [id number] Self [id number] Medicaid Medigap Part B [id number] Self [id number] Todays Option Medicare Commercial [id number] Self [id number] Ghi FHP Medigap Part B [id number] Self 0AN [id number] Medicaid Medigap Part B [id number] Self [id number] Medicare [place]l Govt Servic Medicare Primary [id number] Self [id number] Medicaid Medigap Part B [id number] Self [id number] Todays Option Medicare Commercial [id number] Self [id number] TODAYS OPTIONS [id number] SP [id number] PHCS (pr) Commercial [place] Med[place] Part B Self Todays Options Commercial Self Medicaid Medigap Part B Self Ghi FHP Medigap Part B Self Medicare [place] Govt Servic Medicare Primary Self Medicaid Medigap Part B Self Todays Option Medicare Commercial Self TODAYS OPTIONS [id number] SP [id number] MEDICARE C [id number] S [id number] A MEDICARE [id number] SP [id number] A MEDICARE [id number] Vicky [id number] A [id number] A Problems, Conditions, and Diagnoses Code Display Name Description Problem Type Effective Dates Data Source(s) 131889826 Obesity Obesity Problem 03/13/2020 12:00:00 AM ES T ROSE ([facility]) [id number] Uncomplicated moderate persistent asthma Uncomplicated moderate persistent asthma Problem 09/20/2019 12:00:00 AM JAMES ROSE ([facility], ) Surgeries/Procedures Procedure Description Date Indications Data Source(s) ECG ROUTINE ECG W/LEAST 12 LDS W/I&R 03/13/2020 12:00: 00 AM EST RO[facility] ([facility]) Spirometry 09/20/2019 12:00:00 AM JAMES CASTILLO ([facility], ) ECG ROUTINE ECG W/LEAST 12 LDS W/I&R 08/28/2019 12:00: 00 AM EDT [facility] ([facility]) Removal Of Tunneled Central Venous Catheter W/O Subcutaneous Port 07/17/2019 12:00:00 AM EDT [facility] ([facility] Colonoscopy 05/04/2019 12:00:00 AM EDT M EDENT ([facility]) Results ID Date Data Source [id number] 03/01/2020 07:34:00 PM EST MED[facility] ([facility]) Name Value Range Interpretation Code Description Data Cassidy rce(s) Supporting Document(s) MB/CK Relative Index 2.73 [facility] ([facility]) <content>DIAGNOSIS CRITERIA</content>
<content>MMB ng/ml Relative Index (RI)</content>
<content>NON-AMI < or = 5 N/A</content>
<content>DESAI ZONE > 5 < or = 4</content>
<content>AMI > 5 > 4</content>
<content></content> CPK Creatine Phosphokinase 77 U/L 26-192 [facility] ([facility]) CK-MB Value Mass 2.1 ng/[facility] Troponin I Laboratory test result [facility] ([facility]) <content>Troponin I Reference Interval f or Siemens [place] LOCI:</content>
<content></content>
<content>99th Percentile= 0.00-0.045 ng/ml</content>
<content></content>
<content>Risk Stratification:</content>
<content><= 0.10 ng/ml Decreased Risk for Adverse Clinical</content>
<content>Events.</content>
<content>0.10-1.50 ng/ml Increased Risk for Adverse Clinical</content>
<content>Events. Evaluation of additional</content>
<content>criterion and/or repeat testing in 2-6</content>
<content>hours is suggested to rule out myocardial</content>
<content>damage.</content>
<content>>= 1.50 ng/ml Indicative of Myocardial Injury.</content>
<content></content> ID Date Data Source [id number] 03/01/2020 04:56:00 PM EST MED[facility] ([facility]) Name Value Range Interpretation Code Description Data Cassidy rce(s) Supporting Document(s) Influenza A Amplification Laboratory test result [facility] ([facility]) Negative results do not preclude influen za or RSV virus infection and should not be used as the sole basis for treatment or other patient management decisions. Influenza B Amplification Laboratory test result [facility] ([facility]) Negative results do not preclude influen za or RSV virus infection and should not be used as the sole basis for treatment or other patient management decisions. RSV Amplification Laboratory test result [facility] ([facility]) Negative results do not preclude influen za or RSV virus infection and should not be used as the sole basis for treatment or other patient management decisions. Laboratory test finding (navigational concept) Laboratory test result [facility] ([facility]) A false negative result may occur if a s pecimen is improperly collected, transported or handled. False [...] pathogens. DISCLAIMER: Testing was performed using the [facility] SARS-CoV-2 test. This test was developed and its performance characteristics determined by [employer]. This test has not been FDA cleared [...] the authorization is terminated or revoked sooner. ID Date Data Source [id number] 03/01/2020 04:56:00 PM EST MED[facility] ([facility]) Name Value Range Interpretation Code Description Data Cassidy rce(s) Supporting Document(s) White Blood Count 11.8 10 4.0-10.0 [facility] ([facility]) Red Blood Count 3.84 10 4.00-5.40 [facility] ([facility]) Hemoglobin 11.4 g/dL 12.0-15.5 [facility] Hematocrit 36.5 % 36.0-47.0 [facility] Mean Corpuscular Volume 95.1 fl 80.0-96.0 [facility] ([facility]) Mean Corpuscular Hemoglobin 29.7 pg 27.0-33.0 ME DENT ([facility]) Mean Corpuscular HGB Conc 31.2 g/dL 32.0-36.5 MEDE NT ([facility]) Platelet Count, Automated 304 10 150-450 [facility] NT ([facility]) Red Cell Distribution Width 15.0 % 11.5-14.5 ME [facility] ([facility]) Lymph % 11.7 % 24.0-44.0 [facility]) Neutrophils % 77.3 % 36.0-66.0 [facility] ([facility]) [place] % 8.1 % 0.0-5.0 [facility] ([facility]) Baso % 0.7 % 0.0-1.0 [facility]) Eos % 1.7 % 0.0-3.0 [facility] ([facility]) Immature Granulocyte % 0.5 % 0-3.0 [facility] ([facility]) Neutrophils # 9.1 10 1.5-8.5 [facility] ([facility]) Nucleated Red Blood Cell % 0.0 % 0-0 [facility] ([facility]) [place] # 1.0 10 0.0-0.8 [facility] ([facility] [facility]) Lymph # 1.4 10 1.5-5.0 [facility] ([facility]) Eos # 0.2 10 0.0-0.5 [facility] ([facility]) Baso # 0.1 10 0.0-0.2 [facility] ([facility]) ID Date Data Source [id number] 03/01/2020 04:56:00 PM EST [facility] Name Value Range Interpretation Code Description Data Cassidy rce(s) Supporting Document(s) SARS coronavirus 2 RNA [Presence] in Res piratory specimen by NORBERT with probe detection NEGATIVE [facility] This lab was ordered by [facility] a nd reported by [facility]. ID Date Data Source [id number] 03/01/2020 04:55:00 PM EST [facility] ([facility]) Name Value Range Interpretation Code Description Data Cassidy rce(s) Supporting Document(s) Natriuretic peptide.B prohormone N-Terminal [Mass/volu me] in Serum or Plasma 4311 pg/mL [facility] ([facility] ) Thyrotropin [Units/volume] in Serum or Plasma by Detec tion limit <= 0.05 mIU/L 2.900 uIU/ML 0.358-3.740 [facility] ([facility] ) Magnesium [Moles/volume] in Serum or Plasma 2.0 mg/dL 1.8-2.4 [facility] ([facility]) Thyroxine (T4) Ab [Units/volume] in Serum 11.6 ug/dL 4.5-12.0 [facility] ([facility]) ID Date Data Source [id number] 03/01/2020 04:55:00 PM EST [facility] ([facility]) Name Value Range Interpretation Code Description Data Cassidy rce(s) Supporting Document(s) Glucose, Fasting 125 mg/dL 70-100 [facility] ([facility]) Blood Urea Nitrogen 23 mg/dL 7-18 [facility] ([facility]) Creatinine For GFR 2.22 mg/dL 0.55-1.30 [facility] ([facility]) Glomerular Filtration Rate 23.2 [facility] ([facility]) <content>Units are mL/min/1.73 m2</content>
<content></content>
<content>Chronic Kidney Disease Staging per NKF:</content>
<content></content>
<content>Stage I & II GFR >=60 Normal to Mildly Decreased</content>
<content>Stage III GFR 30- 59 Moderately Decreased</content>
<content>Stage IV GFR 15-29 Severely Decreased</content>
<content>Stage V GFR <15 Very Little GFR Left</content>
<content>ESRD GFR <15 on GRAVEL INSPECTOR</content>
<content></content> Chloride Level 97 meq/L 98-107 [facility] ([facility]) Sodium Level 135 meq/L 136-145 [facility] ([facility]) Potassium Serum 5.1 meq/L 3.5-5.1 [facility] ([facility]) Testing was performed on a hemolysed spe cimen. Suggest recollection of specimen for more accurate test results. Calcium Level 8.7 mg/dL 8.8-10.2 [facility] ([facility]) Carbon Dioxide Level 35 meq/L 21-32 [facility] ([facility]) Anion Gap 3 meq/L 8-16 [facility] ([facility]) ID Date Data Source [id number] 03/01/2020 04:55:00 PM EST [facility] ([facility]) Name Value Range Interpretation Code Description Data Cassidy rce(s) Supporting Document(s) Ast/Sgot 56 U/L 7-37 [facility] ([place] [facility]) Alkaline Phosphatase 132 U/L 45-117 [facility] ([facility]) Alt/SGPT 52 U/L 12-78 [facility] ([facility]) Bilirubin,Direct Laboratory test result 0.0-0.2 [facility] ([facility]) Bilirubin,Total 0.5 mg/dL 0.2-1.0 [facility] ([facility]) Total Protein 7.2 GM/DL 6.4-8.2 [facility] ([facility]) Albumin/Globulin Ratio 0.8 1.2-2.2 [facility] ([facility]) Albumin 3.3 GM/DL 3.2-5.2 [facility] ([place] [facility]) ID Date Data Source [id number] 03/01/2020 04:55:00 PM EST [facility] Name Value Range Interpretation Code Description Data Cassidy e(s) Supporting Document(s) CPK Creatine Phosphokinase 144 U/L 26-192 [facility] ([facility]) CK-MB Value Mass 2.3 ng/mL [facility] ([facility]) MB/CK Relative Index 1.60 [facility] ([facility]) <content>DIAGNOSIS CRITERIA</content>
<content>MMB ng/ml Relative Index (RI)</content>
<content>NON-AMI < or = 5 N/A</content>
<content>DESAI ZONE > 5 < or = 4</content>
<content>AMI > 5 > 4</content>
<content></content> Troponin I Laboratory test result [facility] <content>Troponin I Reference Interval f or Siemens [place] LOCI:</content>
<content></content>
<content>99th Percentile= 0.00-0.045 ng/ml</content>
<content></content>
<content>Risk Stratification:</content>
<content><= 0.10 ng/ml Decreased Risk for Adverse Clinical</content>
<content>Events.</content>
<content>0.10-1.50 ng/ml Increased Risk for Adverse Clinical</content>
<content>Events. Evaluation of additional</content>
<content>criterion and/or repeat testing in 2-6</content>
<content>hours is suggested to rule out myocardial</content>
<content>damage.</content>
<content>>= 1.50 ng/ml Indicative of Myocardial Injury.</content>
<content></content> ID Date Data Source [id number] 03/01/2020 04:55:00 PM EST [facility] ([facility]) Name Value Range Interpretation Code Description Data Cassidy rce(s) Supporting Document(s) Inr 0.91 [facility] ([facility]) THERAPUTIC HUMAN INR VALUES INDICATIONS NORMAL RANGES PROPHYLAXIS/TREATMENT OF: VENOUS THROMBOSIS 2.0-3.0 PULMONARY EMBOLISM 2.0-3.0 PREVENTION OF SYSTEMIC EMBOLISM FROM: TISSUE HEART VALVES 2.0-3.0 ACUTE MYOCARDIAL INFARCTION 2.0-3.0 VALVULAR HEART DISEASE 2.0-3.0 ATRIAL FIBRILLATION 2.0-3.0 MECHANICAL VALVES(HIGH RISK) 2.5-3.5 RECURRENT MYOCARDIAL INFARCTION 2.5-3.5 Prothrombin Time 12.4 s 12.5-14.3 [facility] ([facility]) ID Date Data Source [id number] 03/01/2020 01:47:00 PM EST [facility] Name Value Range Interpretation Code Description Data Cassidy rce(s) Supporting Document(s) Magnesium Level 2.0 1.8-2.4 [facility] ([facility]) Natriuretic peptide.B prohormone N-Terminal [Mass/volu me] in Serum or Plasma 4311 [facility] ([facility]) Thyroid Stimulating Hormone 2.900 [facility] ([facility]) ID Date Data Source [id number] 03/01/2020 01:47:00 PM EST [facility] ([facility]) Name Value Range Interpretation Code Description Data Cassidy rce(s) Supporting Document(s) Calcium [Mass/volume] in Serum or Plasma 8.7 [facility] ([facility]) Carbon dioxide, total [Moles/volume] in Serum or Plasma 35 [facility] ([facility]) Sodium 135 [facility] ([facility]) Chloride [Moles/volume] in Serum or Plasma 97 [facility] ([facility]) Blood Urea Nitrogen 23 7-18 [facility] ([facility]) Glucose 125 70-100 [facility] ([facility]) Potassium [Moles/volume] in Serum or Plasma 5.1 [facility] ([facility]) Creatinine 2.22 0.55-1.30 [facility] ([facility]) Glomerular filtration rate/1.73 sq M.pre dicted [Volume Rate/Area] in Serum or Plasma by Creatinine-based formula (MDRD) 23.2 [facility] ([facility]) ID Date Data Source [id number] 03/01/2020 01:47:00 PM EST [facility] ([facility]) Name Value Range Interpretation Code Description Data Cassidy rce(s) Supporting Document(s) White Blood Count 11.8 4.0-10.0 [facility] ([facility]) Hemoglobin 11.4 [facility] ([facility]) Platelets 304 150-450 [facility] Red Blood Count 3.84 4.00-5.40 [facility] ([facility]) Hematocrit 36.5 [facility] ([facility]) ID Date Data Source [id number] 02/26/2020 11:41:00 AM EST [facility] ([facility]) Name Value Range Interpretation Code Description Data Cassidy rce(s) Supporting Document(s) Bedside Glucose 161 mg/dL 83-110 [facility] RN Notified Nurse Notified ID Date Data Source [id number] 10/02/2019 02:34:00 PM EDT [facility] Name Value Range Interpretation Code Description Data Cassidy rce(s) Supporting Document(s) Thyrotropin [Units/volume] in Serum or Plasma by Detec tion limit <= 0.05 mIU/L 4.60 uIU/mL 0.36-3.74 [facility] ) ID Date Data Source [id number] 10/02/2019 02:34:00 PM EDT [facility] Name Value Range Interpretation Code Description Data Cassidy rce(s) Supporting Document(s) Hemoglobin A1c/Hemoglobin.total in Blood 9.9 g/dL 4.8-5.6 [facility] Lab Result Notes: Pre-Diabetes 5.7 - 6.4 % Diabetes = or > 6.5% Glucose mean value [Mass/volume] in Blood Estimated fr om glycated hemoglobin 237 mg/dL 60-110 [facility] ([facility] ) ID Date Data Source [id number] 10/02/2019 02:34:00 PM EDT [facility] ([facility]) Name Value Range Interpretation Code Description Data Cassidy rce(s) Supporting Document(s) Thyrotropin [Units/volume] in Serum or Plasma by Detec tion limit <= 0.05 mIU/L Laboratory test result [facility] ([facility]) Hemoglobin A1c/Hemoglobin.total in Blood Laboratory test result [facility] ([facility]) ID Date Data Source [id number] 08/09/2019 12:49:00 PM EDT [facility] ([facility]) Name Value Range Interpretation Code Description Data Cassidy rce(s) Supporting Document(s) Magnesium Level 1.7 1.8-2.4 [facility] ([facility] ID Date Data Source [id number] 08/09/2019 12:49:00 PM EDT [facility] ([facility]) Name Value Range Interpretation Code Description Data Cassidy rce(s) Supporting Document(s) Blood Urea Nitrogen 35 7-18 [facility] ([facility] Glucose 143 70-100 [facility] ([facility] Creatinine 1.13 0.55-1.30 [facility] ([facility] Sodium 135 136-145 [facility] ([facility] [place] Potassium 4.0 3.5-5.1 [facility] Calcium 8 8.8-10.2 [facility] Chloride 99 98-107 [facility] Carbon Dioxide 28 21-32 [facility] ([facility] Glomerular filtration rate/1.73 sq M.pre dicted [Volume Rate/Area] in Serum or Plasma by Creatinine-based formula (MDRD) 15.6 [facility] ([facility] ID Date Data Source [id number] 08/09/2019 12:49:00 PM EDT [facility] ([facility]) Name Value Range Interpretation Code Description Data Cassidy rce(s) Supporting Document(s) White Blood Count 9.0 4.0-10.0 [facility] ([facility]) Red Blood Count 3.33 4.00-5.40 [facility] ([facility]) Platelets 341 150-450 [facility] ([facility]) Hematocrit 32.2 [facility] ([facility]) Hemoglobin 10.3 [facility] ([facility]) ID Date Data Source [id number] 08/07/2019 01:40:00 PM EDT [facility] ([facility]) Name Value Range Interpretation Code Description Data Cassidy rce(s) Supporting Document(s) AB Screen (Indirect Steph)Vis Laboratory test result [facility] Blood Type Laboratory test result [facility] ([facility]) ID Date Data Source [id number] 08/07/2019 01:40:00 PM EDT [facility] ([facility]) Name Value Range Interpretation Code Description Data Cassidy rce(s) Supporting Document(s) Lactate [Mass/volume] in Serum or Plasma 1.2 mmol/L 0.4-2.0 [facility] ([facility]) Y/N query for Sepsis Lactate Rule: Y ID Date Data Source [id number] 08/07/2019 01:40:00 PM EDT [facility] ([facility]) Name Value Range Interpretation Code Description Data Cassidy rce(s) Supporting Document(s) Red Blood Count 3.32 10 4.00-5.40 [facility] ([facility]) White Blood Count 11.3 10 4.0-10.0 [facility] ([facility]) Hemoglobin 10.4 g/dL 12.0-15.5 [facility] ([facility]) Hematocrit 32.9 % 36.0-47.0 [facility] ([facility]) Mean Corpuscular Volume 99.1 fl 80.0-96.0 [facility] ([facility]) Mean Corpuscular Hemoglobin 31.3 pg 27.0-33.0 [facility] ([facility]) Platelet Count, Automated 349 10 150-450 [facility] ([facility]) Red Cell Distribution Width 14.5 % 11.5-14.5 [facility] ([facility]) Mean Corpuscular HGB Conc 31.6 g/dL 32.0-36.5 [facility] ([facility]) Neutrophils % 80.8 % 36.0-66.0 [facility] ([facility]) Lymph % 11.1 % 24.0-44.0 [facility] [facility] [place] % 5.3 % 0.0-5.0 [facility] [facility] Eos % 2.0 % 0.0-3.0 [facility] ([place] [facility]) Baso % 0.4 % 0.0-1.0 [facility] ([place] [facility]) Immature Granulocyte % 0.4 % 0-3.0 [facility] ([facility]) Nucleated Red Blood Cell % 0.0 % 0-0 [facility] ([facility]) Neutrophils # 9.2 10 1.5-8.5 [facility] ([facility]) Lymph # 1.3 10 1.5-5.0 [facility] [facility] [place] # 0.6 10 0.0-0.8 [facility] ([place] [facility]) Eos # 0.2 10 0.0-0.5 [facility] ([place] [facility]) Baso # 0.0 10 0.0-0.2 [facility] ([place] [facility]) ID Date Data Source [id number] 08/07/2019 12:02:00 PM EDT [facility] ([facility]) Name Value Range Interpretation Code Description Data Cassidy rce(s) Supporting Document(s) Thyrotropin [Units/volume] in Serum or Plasma by Detec tion limit <= 0.05 mIU/L 2.660 uIU/ML 0.358-3.740 [facility] ([facility] ) 1251. Natriuretic peptide.B prohormone N-Terminal [Mass/volu me] in Serum or Plasma 3546 pg/mL [facility] ([facility] [facility] 1251. ID Date Data Source [id number] 08/07/2019 12:02:00 PM EDT [facility] ([facility]) Name Value Range Interpretation Code Description Data Cassidy rce(s) Supporting Document(s) Glucose, Fasting 253 mg/dL 70-100 [facility] ([facility]) Blood Urea Nitrogen 67 mg/dL 7-18 [facility] ([facility]) Creatinine For GFR 4.86 mg/dL 0.55-1.30 [facility] ([facility]) Glomerular Filtration Rate 9.4 [facility] ([facility]) <content>Units are mL/min/1.73 m2</content>
<content></content>
<content>Chronic Kidney Disease Staging per NKF:</content>
<content></content>
<content>Stage I & II GFR >=60 Normal to Mildly Decreased</content>
<content>Stage III GFR 30- 59 Moderately Decreased</content>
<content>Stage IV GFR 15-29 Severely Decreased</content>
<content>Stage V GFR <15 Very Little GFR Left</content>
<content>ESRD GFR <15 on GRAVEL INSPECTOR</content>
<content></content> Sodium Level 136 meq/L 136-145 [facility] ([facility]) Chloride Level 102 meq/L 98-107 [facility] ([facility]) Potassium Serum 5.1 meq/L 3.5-5.1 [facility] ([facility]) Carbon Dioxide Level 26 meq/L 21-32 [facility] ([facility]) Calcium Level 8.0 mg/dL 8.8-10.2 [facility] ([facility]) Anion Gap 8 meq/L 8-16 [facility] ([facility]) ID Date Data Source [id number] 08/07/2019 12:02:00 PM EDT [facility] ([facility]) Name Value Range Interpretation Code Description Data Cassidy rc(s) Supporting Document(s) Alkaline Phosphatase 111 U/L 45-117 [facility] ([facility]) Ast/Sgot 24 U/L 7-37 [facility] ([place] [facility]) Alt/SGPT 32 U/L 12-78 [facility] ([place] [facility]) Total Protein 6.4 GM/DL 6.4-8.2 [facility] ([facility]) Bilirubin,Total 0.3 mg/dL 0.2-1.0 [facility] ([facility]) Bilirubin,Direct 0.1 mg/dL 0.0-0.2 [facility] ([facility]) Albumin/Globulin Ratio 0.8 1.2-2.2 [facility] ([facility]) Albumin 2.9 GM/DL 3.2-5.2 [facility] ([place] [facility]) ID Date Data Source [id number] 08/07/2019 12:02:00 PM EDT [facility] ([facility]) Name Value Range Interpretation Code Description Data Cassidy rce(s) Supporting Document(s) CPK Creatine Phosphokinase 78 U/L 26-192 [facility] ([facility]) CK-MB Value Mass 2.5 ng/mL [facility] MB/CK Relative Index 3.21 [facility] ([facility]) <content>DIAGNOSIS CRITERIA</content>
<content>MMB ng/ml Relative Index (RI)</content>
<content>NON-AMI < or = 5 N/A</content>
<content>DESAI ZONE > 5 < or = 4</content>
<content>AMI > 5 > 4</content>
<content></content> Troponin I Laboratory test result [facility] ([facility]) <content>Troponin I Reference Interval f or Siemens [place] LOCI:</content>
<content></content>
<content>99th Percentile= 0.00-0.045 ng/ml</content>
<content></content>
<content>Risk Stratification:</content>
<content><= 0.10 ng/ml Decreased Risk for Adverse Clinical</content>
<content>Events.</content>
<content>0.10-1.50 ng/ml Increased Risk for Adverse Clinical</content>
<content>Events. Evaluation of additional</content>
<content>criterion and/or repeat testing in 2-6</content>
<content>hours is suggested to rule out myocardial</content>
<content>damage.</content>
<content>>= 1.50 ng/ml Indicative of Myocardial Injury.</content>
<content></content> ID Date Data Source [id number] 07/17/2019 07:58:00 AM EDT [facility] ([facility]) Name Value Range Interpretation Code Description Data Cassidy rce(s) Supporting Document(s) Bedside Glucose 99 mg/dL 80-115 [facility] ID Date Data Source [id number] 07/17/2019 07:58:00 AM EDT [facility] ([facility]) Name Value Range Interpretation Code Description Data Cassidy rce(s) Supporting Document(s) Glucose [Mass/volume] in Capillary blood by Glucometer 99 mg/dL 80-115 Normal (applies to non-numeric results) [facility]) ID Date Data Source [id number] 06/20/2019 09:13:00 PM EDT [facility] ([facility]) Name Value Range Interpretation Code Description Data Cassidy rce(s) Supporting Document(s) aPTT in Blood by Coagulation assay 28.1 s 25.0-38.4 [facility]) ID Date Data Source [id number] 06/20/2019 09:13:00 PM EDT [facility] ([facility]) Name Value Range Interpretation Code Description Data Cassidy rce(s) Supporting Document(s) Prothrombin Time 13.3 s 11.8-14.0 [facility] ([facility]) Inr 1.04 [facility] [facility] THERAPUTIC HUMAN INR VALUES INDICATIONS NORMAL RANGES PROPHYLAXIS/TREATMENT OF: VENOUS THROMBOSIS 2.0-3.0 PULMONARY EMBOLISM 2.0-3.0 PREVENTION OF SYSTEMIC EMBOLISM FROM: TISSUE HEART VALVES 2.0-3.0 ACUTE MYOCARDIAL INFARCTION 2.0-3.0 VALVULAR HEART DISEASE 2.0-3.0 ATRIAL FIBRILLATION 2.0-3.0 MECHANICAL VALVES(HIGH RISK) 2.5-3.5 RECURRENT MYOCARDIAL INFARCTION 2.5-3.5 ID Date Data Source [id number] 06/20/2019 09:13:00 PM EDT [facility] ([facility]) Name Value Range Interpretation Code Description Data Cassidy rce(s) Supporting Document(s) White Blood Count 12.1 10 4.0-10.0 [facility] ([facility]) Red Blood Count 3.94 10 4.00-5.40 [facility] ([facility]) Mean Corpuscular Volume 95.9 fl 80.0-96.0 [facility] ([facility]) Hematocrit 37.8 % 36.0-47.0 [facility] ([facility] Hemoglobin 12.2 g/dL 12.0-15.5 [facility] ([facility]) Mean Corpuscular HGB Conc 32.3 g/dL 32.0-36.5 [facility] ([facility]) Red Cell Distribution Width 15.1 % 11.5-14.5 [facility] ([facility]) Mean Corpuscular Hemoglobin 31.0 pg 27.0-33.0 [facility] ([facility]) Platelet Count, Automated 376 10 150-450 [facility] ([facility]) Neutrophils % 79.6 % 36.0-66.0 [facility] ([facility]) [place] % 7.2 % 0.0-5.0 [facility] ([place] [facility]) Lymph % 10.6 % 24.0-44.0 [facility] [facility] Eos % 1.7 % 0.0-3.0 [facility] ([place] [facility]) Immature Granulocyte % 0.3 % 0-3.0 [facility] ([facility]) Baso % 0.6 % 0.0-1.0 [facility] ([place] [facility]) Nucleated Red Blood Cell % 0.0 % 0-0 [facility] ([facility]) Lymph # 1.3 10 1.5-5.0 [facility] [facility]) Neutrophils # 9.7 10 1.5-8.5 [facility] ([facility]) Baso # 0.1 10 0.0-0.2 [facility] ([place] [facility]) Eos # 0.2 10 0.0-0.5 [facility] ([place] [facility]) [place] # 0.9 10 0.0-0.8 [facility] ([place] [facility]) ID Date Data Source [id number] 05/10/2019 09:05:00 AM EDT [facility] ([facility]) Name Value Range Interpretation Code Description Data Cassidy rce(s) Supporting Document(s) Glucose mean value [Mass/volume] in Blood Estimated fr om glycated hemoglobin 157 mg/dL 60-110 [facility] ([facility] ) Hemoglobin A1c/Hemoglobin.total in Blood 7.1 g/dL 4.8-5.6 [facility] ([facility] Lab Result Notes: Pre-Diabetes 5.7 - 6.4 % Diabetes = or > 6.5% ID Date Data Source [id number] 05/10/2019 09:05:00 AM EDT [facility] ([facility] Name Value Range Interpretation Code Description Data Cassidy rce(s) Supporting Document(s) Hemoglobin [Mass/volume] in Blood 12.8 g/dL 12.0-18.0 [facility] ([facility]) Erythrocytes [#/volume] in Blood by Automated count 4.11 x10*6/UL 4.2 0-6.30 [facility] ([facility] [facility] Leukocytes [#/volume] in Blood by Automated count 10.3 x10*3/UL 4.1-1 0.9 [facility] ([facility]) Hematocrit [Volume Fraction] of Blood by Automated count 38.9 % 3 7.0-51.0 [facility] ([facility]) MCV 94.6 fL 80.0-97.0 [facility] ([place] [facility]) MCH 31.1 pg 26.0-32.0 [facility] ([place] [facility]) Erythrocyte distribution width [Ratio] by Automated count 15.1 % 11.6-13.7 [facility] ([facility]) MCHC 32.9 g/dL 31.0-38.0 [facility] ([place] [facility]) Platelets [#/volume] in Blood by Automated count 242 x10*3/UL 140-440 [facility] ([facility]) Lymph % 10.5 % 10.0-58.5 [facility] ([place] [facility]) MPV 7.3 FL 7.8-11.0 [facility] ([place] [facility]) Mid % 2.9 % 1.7-9.3 [facility] ([place] [facility]) Lymph # 1.0 x10*3/UL 0.6-4.1 [facility] ([facility]) Mid # 0.4 x10*3/UL 0.1-0.6 [facility] ([facility]) Neut % 86.6 % 37.0-92.0 [facility] [facility] [facility] Neut # 8.9 x10*3/UL 2.0-7.8 [facility] ([facility]) ID Date Data Source [id number] 05/10/2019 09:05:00 AM EDT [facility] ([facility]) Name Value Range Interpretation Code Description Data Cassidy rce(s) Supporting Document(s) Hemoglobin A1c/Hemoglobin.total in Blood <pending> [facility] ID Date Data Source [id number] 04/29/2019 02:22:00 PM EDT [facility] Name Value Range Interpretation Code Description Data Cassidy rce(s) Supporting Document(s) Lipoprotein lipase [Enzymatic activity/volume] in Serum or P lasma 260 U/L 73-393 [facility] ([facility] ID Date Data Source [id number] 04/29/2019 02:22:00 PM EDT [facility] ([facility] Name Value Range Interpretation Code Description Data Cassidy rce(s) Supporting Document(s) Glucose, Fasting 235 mg/dL 70-100 [facility] ([facility]) Blood Urea Nitrogen 108 mg/dL 7-18 [facility] ([facility] Creatinine For GFR 5.62 mg/dL 0.55-1.30 [facility] ([facility] Glomerular Filtration Rate 8.0 MED ENT ([facility]) <content>Units are mL/min/1.73 m2</content>
<content></content>
<content>Chronic Kidney Disease Staging per NKF:</content>
<content></content>
<content>Stage I & II GFR >=60 Normal to Mildly Decreased</content>
<content>Stage III GFR 30-59 Moderately Decreased</content>
<content>Stage IV GFR 15-29 Severely Decreased</content>
<content>Stage V GFR <15 Very Little GFR Left</content>
<content>ESRD GFR <15 on GRAVEL INSPECTOR</content>
<content></content> Sodium Level 136 meq/L 136-145 [facility] ([facility]) Carbon Dioxide Level 21 meq/L 21-32 [facility] ([facility] Potassium Serum 5.1 meq/L 3.5-5.1 [facility] ([facility]) Anion Gap 10 meq/L 8-16 [facility] ([facility]) Chloride Level 105 meq/L 98-107 [facility] ([facility] Calcium Level 7.7 mg/dL 8.8-10.2 [facility] ([facility]) ID Date Data Source [id number] 04/29/2019 02:22:00 PM EDT [facility] ([facility]) Name Value Range Interpretation Code Description Data Cassidy rce(s) Supporting Document(s) Ast/Sgot 14 U/L 7-37 [facility] ([facility]) Bilirubin,Total 0.3 mg/dL 0.2-1.0 [facility] ([facility]) Bilirubin,Direct Laboratory test result 0.0-0.2 [facility] ([facility]) Alkaline Phosphatase 111 U/L 45-117 [facility] ([facility]) Alt/SGPT 23 U/L 12-78 [facility] ([facility]) Total Protein 6.8 GM/DL 6.4-8.2 [facility] ([facility]) Albumin 2.9 GM/DL 3.2-5.2 [facility] ([facility]) Albumin/Globulin Ratio 0.74 1.00-1.93 [facility] ([facility]) ID Date Data Source [id number] 04/29/2019 02:22:00 PM EDT [facility] ([facility]) Name Value Range Interpretation Code Description Data Cassidy rce(s) Supporting Document(s) Red Blood Count 3.13 10 4.00-5.40 [facility] ([facility]) White Blood Count 12.8 10 4.0-10.0 [facility] ([facility]) Hemoglobin 9.9 g/dL 12.0-15.5 [facility] ([facility] Hematocrit 30.8 % 36.0-47.0 [facility] ([facility]) Red Cell Distribution Width 13.1 % 11.5-14.5 MI DENT ([facility]) Mean Corpuscular HGB Conc 32.1 g/dL 32.0-36.5 MEDE NT ([facility]) Mean Corpuscular Hemoglobin 31.6 pg 27.0-33.0 MI DENT ([facility]) Mean Corpuscular Volume 98.4 fl 80.0-96.0 [facility] ([facility]) Platelet Count, Automated 287 10 150-450 MEDE NT ([facility]) Neutrophils % 82.6 % 36.0-66.0 [facility] ([facility]) Lymph % 8.8 % 24.0-44.0 [facility] [facility] Immature Granulocyte % 0.9 % 0-3.0 [facility] ([facility]) Eos % 1.7 % 0.0-3.0 [facility]) [place] % 5.4 % 0.0-5.0 [facility] [facility] Baso % 0.6 % 0.0-1.0 [facility] [facility] Nucleated Red Blood Cell % 0.0 % 0-0 MED ENT ([facility]) Lymph # 1.1 10 1.5-5.0 [facility]) Neutrophils # 10.6 10 1.5-8.5 [facility] ([facility]) Eos # 0.2 10 0.0-0.5 [facility] [place] # 0.7 10 0.0-0.8 [facility]) Baso # 0.1 10 0.0-0.2 [facility]) ID Date Data Source [id number] 04/18/2019 09:36:00 PM EDT [facility] ([facility]) Name Value Range Interpretation Code Description Data Cassidy rce(s) Supporting Document(s) CK-MB Value Mass 2.4 ng/mL [facility] ([facility]) CPK Creatine Phosphokinase 81 U/L 26-192 MED ENT ([facility]) MB/CK Relative Index 2.96 [facility] ([facility]) <content>DIAGNOSIS CRITERIA</content>
<content>MMB ng/ml Relative Index (RI)</content>
<content>NON-AMI < or = 5 N/A</content>
<content>DESAI ZONE > 5 < or = 4</content>
<content>AMI > 5 > 4</content>
<content></content> Troponin I Laboratory test result [facility] ([facility]) <content>Troponin I Reference Interval f or Siemens [place] LOCI:</content>
<content></content>
<content>99th Percentile= 0.00-0.045 ng/ml</content>
<content></content>
<content>Risk Stratification:</content>
<content><= 0.10 ng/ml Decreased Risk for Adverse Clinical</content>
<content>Events.</content>
<content>0.10-1.50 ng/ml Increased Risk for Adverse Clinical</content>
<content>Events. Evaluation of additional</content>
<content>criterion and/or repeat testing in 2-6</content>
<content>hours is suggested to rule out myocardial</content>
<content>damage.</content>
<content>>= 1.50 ng/ml Indicative of Myocardial Injury.</content>
<content></content> ID Date Data Source [id number] 04/18/2019 08:55:00 PM EDT [facility] ([facility]) Name Value Range Interpretation Code Description Data Cassidy rce(s) Supporting Document(s) Bedside Glucose 157 mg/dL 80-115 [facility] ([facility]) ID Date Data Source [id number] 04/18/2019 06:16:00 PM EDT [facility] ([facility]) Name Value Range Interpretation Code Description Data Cassidy rce(s) Supporting Document(s) Natriuretic peptide.B prohormone N-Terminal [Mass/volu me] in Serum or Plasma 1171 pg/mL [facility] ([facility] ) Lipoprotein lipase [Enzymatic activity/volume] in Serum or P lasma 284 U/L 73-393 [facility] ([facility]) Thyrotropin [Units/volume] in Serum or Plasma by Detec tion limit <= 0.05 mIU/L 2.550 uIU/ML 0.358-3.740 [facility] ([facility] ) Thyroxine (T4) free [Mass/volume] in Serum or Plasma 1.50 ng/dL 0.76- 1.46 [facility] ([facility]) ID Date Data Source [id number] 04/18/2019 06:16:00 PM EDT [facility] ([facility]) Name Value Range Interpretation Code Description Data Cassidy rce(s) Supporting Document(s) Blood Urea Nitrogen 29 mg/dL 7-18 [facility] ([facility]) Glucose, Fasting 454 mg/dL 70-100 Above upper panic limits [facility] ([facility]) Glomerular Filtration Rate 16.5 MED ENT ([facility]) <content>Units are mL/min/1.73 m2</content>
<content></content>
<content>Chronic Kidney Disease Staging per NKF:</content>
<content></content>
<content>Stage I & II GFR >=60 Normal to Mildly Decreased</content>
<content>Stage III GFR 30- 59 Moderately Decreased</content>
<content>Stage IV GFR 15-29 Severely Decreased</content>
<content>Stage V GFR <15 Very Little GFR Left</content>
<content>ESRD GFR <15 on GRAVEL INSPECTOR</content>
<content></content> Creatinine For GFR 2.99 mg/dL 0.55-1.30 [facility] ([facility]) Chloride Level 97 meq/L 98-107 [facility] ([facility]) Potassium Serum 4.4 meq/L 3.5-5.1 [facility] ([facility]) Sodium Level 131 meq/L 136-145 [facility] ([facility]) Carbon Dioxide Level 26 meq/L 21-32 [facility] ([facility]) Anion Gap 8 meq/L 8-16 [facility] ([place] [facility]) Calcium Level 8.8 mg/dL 8.8-10.2 [facility] ([facility]) ID Date Data Source [id number] 04/18/2019 06:16:00 PM EDT [facility] ([facility]) Name Value Range Interpretation Code Description Data Cassidy rce(s) Supporting Document(s) Alt/SGPT 31 U/L 12-78 [facility] ([place] [facility]) Ast/Sgot 17 U/L 7-37 [facility] ([facility]) Alkaline Phosphatase 130 U/L 45-117 [facility] ([facility]) Bilirubin,Total 0.3 mg/dL 0.2-1.0 [facility] ([facility]) Bilirubin,Direct Laboratory test result 0.0-0.2 [facility] ([facility]) Albumin/Globulin Ratio 0.80 1.00-1.93 [facility] ([facility]) Total Protein 7.4 GM/DL 6.4-8.2 [facility] ([facility]) Albumin 3.3 GM/DL 3.2-5.2 [facility] ([place] [facility]) ID Date Data Source [id number] 04/18/2019 06:16:00 PM EDT [facility]) Name Value Range Interpretation Code Description Data Cassidy rce(s) Supporting Document(s) MB/CK Relative Index 3.37 [facility] <content>DIAGNOSIS CRITERIA</content>
<content>MMB ng/ml Relative Index (RI)</content>
<content>NON-AMI < or = 5 N/A</content>
<content>DESAI ZONE > 5 < or = 4</content>
<content>AMI > 5 > 4</content>
<content></content> CK-MB Value Mass 3.1 ng/mL [facility]) CPK Creatine Phosphokinase 92 U/L 26-192 [facility]) Troponin I Laboratory test result [facility] ([facility]) <content>Troponin I Reference Interval f or Siemens [place] LOCI:</content>
<content></content>
<content>99th Percentile= 0.00-0.045 ng/ml</content>
<content></content>
<content>Risk Stratification:</content>
<content><= 0.10 ng/ml Decreased Risk for Adverse Clinical</content>
<content>Events.</content>
<content>0.10-1.50 ng/ml Increased Risk for Adverse Clinical</content>
<content>Events. Evaluation of additional</content>
<content>criterion and/or repeat testing in 2-6</content>
<content>hours is suggested to rule out myocardial</content>
<content>damage.</content>
<content>>= 1.50 ng/ml Indicative of Myocardial Injury.</content>
<content></content> ID Date Data Source [id number] 04/18/2019 06:16:00 PM EDT [facility]) Name Value Range Interpretation Code Description Data Cassidy rce(s) Supporting Document(s) aPTT in Blood by Coagulation assay 38.9 s 25.0-38.4 [facility] ([facility]) ID Date Data Source [id number] 04/18/2019 06:16:00 PM EDT [facility] ([facility]) Name Value Range Interpretation Code Description Data Cassidy rce(s) Supporting Document(s) Prothrombin Time 12.4 s 11.8-14.0 [facility]) Inr 0.96 [facility] ([facility]) THERAPUTIC HUMAN INR VALUES INDICATIONS NORMAL RANGES PROPHYLAXIS/TREATMENT OF: VENOUS THROMBOSIS 2.0-3.0 PULMONARY EMBOLISM 2.0-3.0 PREVENTION OF SYSTEMIC EMBOLISM FROM: TISSUE HEART VALVES 2.0-3.0 ACUTE MYOCARDIAL INFARCTION 2.0-3.0 VALVULAR HEART DISEASE 2.0-3.0 ATRIAL FIBRILLATION 2.0-3.0 MECHANICAL VALVES(HIGH RISK) 2.5-3.5 RECURRENT MYOCARDIAL INFARCTION 2.5-3.5 ID Date Data Source [id number] 04/18/2019 06:16:00 PM EDT [facility] ([facility] Name Value Range Interpretation Code Description Data [facility] rce(s) Supporting Document(s) Hematocrit 37.7 % 36.0-47.0 [facility] ([facility]) Red Blood Count 3.86 10 4.00-5.40 [facility] ([facility]) White Blood Count 13.5 10 4.0-10.0 [facility] ([facility]) Hemoglobin 12.3 g/dL 12.0-15.5 [facility] Mean Corpuscular Hemoglobin 31.9 pg 27.0-33.0 [facility] ([facility]) Mean Corpuscular HGB Conc 32.6 g/dL 32.0-36.5 MEDE NT ([facility]) Mean Corpuscular Volume 97.7 fl 80.0-96.0 [facility] ([facility]) Red Cell Distribution Width 13.2 % 11.5-14.5 [facility] ([facility]) Lymph % 12.1 % 24.0-44.0 [facility] ([place] [facility]) Platelet Count, Automated 378 10 150-450 MEDE NT ([facility]) Neutrophils % 79.3 % 36.0-66.0 [facility] ([facility]) Eos % 1.8 % 0.0-3.0 [facility] [facility]) [place] % 5.9 % 0.0-5.0 [facility] [facility]) Baso % 0.5 % 0.0-1.0 [facility] [facility] Neutrophils # 10.7 10 1.5-8.5 [facility] ([facility]) Nucleated Red Blood Cell % 0.0 % 0-0 MED E[facility] ([facility]) Immature Granulocyte % 0.4 % 0-3.0 [facility] ([facility]) Baso # 0.1 10 0.0-0.2 [facility] [facility]) Lymph # 1.6 10 1.5-5.0 [facility] [facility] Eos # 0.2 10 0.0-0.5 [facility] [facility] [place] # 0.8 10 0.0-0.8 [facility] [facility] Procedure Social History Code Duration Value Status Description Data Source(s ) Smoking 03/13/2020 12:00:00 AM EST Patient has never smoked co mpleted Patient has never smoked [facility] ([facility]) Smoking 09/20/2019 12:00:00 AM EDT Non Smoker completed Non Smoke r [facility] ([facility], ) Vital Signs ID Date Data Source [id number] Name Value Range Interpretation Code Description Data Source(s) Diastolic blood pressure--sitting 70 mm[Hg] 70 mm[Hg] [facility] ([facility]) [place], large cuff (Ra with Av fistula) Systolic blood pressure--sitting 118 mm[Hg] 118 mm[Hg] [facility] ([facility]) [place], large cuff (Ra with Av fistula) Heart rate 67 /min 67 /min [facility] ([facility]) Body mass index (BMI) [Ratio] 42.6 kg/m2 42.6 k g/m2 [facility] ([facility]) Body height 56 [in_i] 56 [in_i] [facility] 4'8" Body weight 190.00 [lb_av] 190.00 [lb_av] MEDEN T ([facility]) Body surface area Derived from formula 1.76 m2 1.76 m2 [facility] ([facility]) Body weight 87.545 kg 87.545 kg [facility] [place] body weight 100 [lb_av] 100 [lb_av] MEDEN T ([facility]) Body mass index (BMI) [Ratio] 42.5 kg/m2 42.5 k g/m2 [facility] ([facility]) Body weight 193.00 [lb_av] 193.00 [lb_av] MEDEN T ([facility]) Body height 56.5 [in_i] 56.5 [in_i] [facility] ([facility]) 4'8.50" Diastolic blood pressure 71 mm[Hg] 71 mm[Hg] [facility] Systolic blood pressure 135 mm[Hg] 135 mm[Hg] [facility] Body mass index (BMI) [Ratio] 40.7 kg/m2 40.7 k g/m2 [facility] ([facility]) Body weight 191.50 [lb_av] 191.50 [lb_av] MEDEN T ([facility]) Body height 57.5 [in_i] 57.5 [in_i] [facility] ([facility]) 4'9.50" Heart rate 71 /min 71 /min [facility] ([facility]) Diastolic blood pressure 70 mm[Hg] 70 mm[Hg] [facility]) Systolic blood pressure 130 mm[Hg] 130 mm[Hg] [facility] Body surface area Derived from formula 1.76 m2 1.76 m2 [facility] ([facility]) Body weight 87.091 kg 87.091 kg [facility] ([facility]) [place] body weight 100 [lb_av] 100 [lb_av] MEDEN T ([facility]) Body mass index (BMI) [Ratio] 42.3 kg/m2 42.3 k g/m2 [facility] ([facility]) Body weight 192.00 [lb_av] 192.00 [lb_av] MED[facility] T ([facility]) Body height 56.5 [in_i] 56.5 [in_i] [facility] ([facility]) 4'8.50" Diastolic blood pressure 72 mm[Hg] 72 mm[Hg] [facility] ([facility]) Systolic blood pressure 165 mm[Hg] 165 mm[Hg] [facility] ([facility]) Body mass index (BMI) [Ratio] 41.5 kg/m2 41.5 k g/m2 [facility] ([facility]) Oxygen saturation in Arterial blood by Pulse oximetry 99 % 99 % [facility] ([facility]) Body weight 195.00 [lb_av] 195.00 [lb_av] MEDEN T ([facility]) Body height 57.5 [in_i] 57.5 [in_i] [facility] ([facility]) 4'9.50" Heart rate 64 /min 64 /min [facility] ([facility]) Diastolic blood pressure 72 mm[Hg] 72 mm[Hg] [facility] ([facility]) Systolic blood pressure 128 mm[Hg] 128 mm[Hg] [facility] ([facility]) Body mass index (BMI) [Ratio] 40.9 kg/m2 40.9 k g/m2 [facility] ([facility]) Body weight 192.38 [lb_av] 192.38 [lb_av] MEDEN T ([facility]) Body height 57.5 [in_i] 57.5 [in_i] [facility] ([facility]) 4'9.50" Heart rate 68 /min 68 /min [facility]) Diastolic blood pressure 68 mm[Hg] 68 mm[Hg] [facility]) RT Arm Systolic blood pressure 130 mm[Hg] 130 mm[Hg] [facility] ([facility]) RT Arm Body weight 86.638 kg 86.638 kg [facility]) [place] body weight 100 [lb_av] 100 [lb_av] MED[facility] T ([facility]) Body mass index (BMI) [Ratio] 42.1 kg/m2 42.1 k g/m2 [facility] Body weight 191.00 [lb_av] 191.00 [lb_av] MED[facility] T ([facility]) Body height 56.5 [in_i] 56.5 [in_i] [facility] ([facility]) 4'8.50" Body temperature 96.6 [degF] 96.6 [degF] [facility] ([facility]) Oxygen saturation in Arterial blood by Pulse oximetry 96 % 96 % [facility] ([facility]) Heart rate 72 /min 72 /min [facility] ([facility]) Diastolic blood pressure 70 mm[Hg] 70 mm[Hg] [facility] ([facility]) Systolic blood pressure 120 mm[Hg] 120 mm[Hg] [facility] Diastolic blood pressure--sitting 62 mm[Hg] 62 mm[Hg] [facility]) large cuff, [place] Systolic blood pressure--sitting 114 mm[Hg] 114 mm[Hg] [facility]) large cuff, [place] Heart rate 66 /min 66 /min [facility] Body mass index (BMI) [Ratio] 43.0 kg/m2 43.0 k g/m2 [facility]) Body height 56 [in_i] 56 [in_i] [facility] ([facility] 4'8" Body weight 192.00 [lb_av] 192.00 [lb_av] MEDEN T ([facility]) Body mass index (BMI) [Ratio] 40.4 kg/m2 40.4 k g/m2 [facility] ([facility]) Body weight 190.00 [lb_av] 190.00 [lb_av] MEDEN T ([facility]) Body height 57.5 [in_i] 57.5 [in_i] [facility] ([facility]) 4'9.50" Heart rate 83 /min 83 /min [facility] Diastolic blood pressure 58 mm[Hg] 58 mm[Hg] [facility]) Systolic blood pressure 102 mm[Hg] 102 mm[Hg] [facility] ([facility]) Body weight 86.751 kg 86.751 kg [facility] ([facility]) Body mass index (BMI) [Ratio] 42.1 kg/m2 42.1 k g/m2 [facility] ([facility]) Body weight 191.25 [lb_av] 191.25 [lb_av] [facility] Body height 56.5 [in_i] 56.5 [in_i] [facility] ([facility]) 4'8.50" Diastolic blood pressure 80 mm[Hg] 80 mm[Hg] [facility] ([facility]) Systolic blood pressure 120 mm[Hg] 120 mm[Hg] [facility] ([facility]) Body weight 87.205 kg 87.205 kg [facility] ([facility]) Body mass index (BMI) [Ratio] 42.3 kg/m2 42.3 k g/m2 [facility] ([facility]) Body weight 192.25 [lb_av] 192.25 [lb_av] [facility] Body height 56.5 [in_i] 56.5 [in_i] [facility] ([facility]) 4'8.50" Diastolic blood pressure 65 mm[Hg] 65 mm[Hg] [facility] ([facility]) Systolic blood pressure 99 mm[Hg] 99 mm[Hg] [facility] ([facility]) Body mass index (BMI) [Ratio] 41.1 kg/m2 41.1 k g/m2 [facility] ([facility]) Oxygen saturation in Arterial blood by Pulse oximetry 96 % 96 % [facility] Body weight 193.38 [lb_av] 193.38 [lb_av] MED[facility] T ([facility]) Body height 57.5 [in_i] 57.5 [in_i] [facility] ([facility]) 4'9.50" Heart rate 76 /min 76 /min [facility] Diastolic blood pressure 60 mm[Hg] 60 mm[Hg] [facility] ([facility]) RT Arm Systolic blood pressure 116 mm[Hg] 116 mm[Hg] [facility] ([facility]) RT Arm Body weight 85.730 kg 85.730 kg [facility] ([facility]) Body mass index (BMI) [Ratio] 41.6 kg/m2 41.6 k g/m2 [facility] ([facility]) Body weight 189.00 [lb_av] 189.00 [lb_av] [facility]) Body height 56.5 [in_i] 56.5 [in_i] [facility] ([facility]) 4'8.50" Body temperature 95.5 [degF] 95.5 [degF] [facility] ([facility]) Diastolic blood pressure 75 mm[Hg] 75 mm[Hg] [facility] ([facility]) Systolic blood pressure 129 mm[Hg] 129 mm[Hg] [facility] ([facility]) Body mass index (BMI) [Ratio] 41.5 kg/m2 41.5 k g/m2 [facility] ([facility]) Oxygen saturation in Arterial blood by Pulse oximetry 98 % 98 % [facility] ([facility]) Air Body weight 195.00 [lb_av] 195.00 [lb_av] MED[facility] T ([facility]) Body height 57.5 [in_i] 57.5 [in_i] [facility] ([facility]) 4'9.50" Heart rate 82 /min 82 /min [facility] Diastolic blood pressure 64 mm[Hg] 64 mm[Hg] [facility] ([facility]) Systolic blood pressure 102 mm[Hg] 102 mm[Hg] [facility] ([facility]) Body weight 88.168 kg 88.168 kg [facility] ([facility], ) Body mass index (BMI) [Ratio] 42.8 kg/m2 42.8 k g/m2 [facility] ([facility], ) Body weight 194.38 [lb_av] 194.38 [lb_av] JANET Kent ([facility], ) Body height 56.5 [in_i] 56.5 [in_i] [facility] ([facility], ) 4'8.50" Diastolic blood pressure 60 mm[Hg] 60 mm[Hg] [facility] Systolic blood pressure 110 mm[Hg] 110 mm[Hg] Laura CASTILLO ([facility], )
[2020-04-02 16:32] VITALS: BP 175/77
== END 2020-04-02 16:52 | disposition home or self-care (01) ==
LOC: EDBD 10:44 → M ED 10:44
DX: E11.649 Type 2 diabetes mellitus with hypoglycemia without coma (principal); I13.2 Hypertensive heart and chronic kidney disease with heart failure and with stage 5 chronic kidney disease, or end stage renal disease; Z99.2 Dependence on renal dialysis; J44.9 Chronic obstructive pulmonary disease, unspecified; I25.10 Atherosclerotic heart disease of native coronary artery without angina pectoris; E78.5 Hyperlipidemia, unspecified; Z87.891 Personal history of nicotine dependence; Z88.1 Allergy status to other antibiotic agents; Z88.8 Allergy status to other drugs, medicaments and biological substances; Z88.2 Allergy status to sulfonamides; Z91.040 Latex allergy status; Z79.51 Long term (current) use of inhaled steroids; Z79.899 Other long term (current) drug therapy

== ENCOUNTER → 2020-05-16 | Outpatient (CLI) | payer MEDICARE ==
[~2020-05-16] MED LIST changes: +ALTEPLASE 2MG/2ML VIAL As Ordered ONE; +DEXT4TAB2 PO; -GLUC4CHW19 PO; +INSU100I16 SUBQ; +ISOVUE-300 61% 50ML VIAL As Ordered ONE; +LIDOCAINE 1% MDV 20ML VIAL As Ordered ONE; +MIDAZOLAM INJ 2MG/2ML VIAL (J2250 PER 1MG) As Ordered ONE; +fentaNYL 100 MCG/2 ML INJECTION (J3010) As Ordered ONE
--- NOTE | 2020-05-16 16:44 | ROOPDOC ---
[facility] Report Of Operation Report of Operation DATE OF PROCEDURE: 05/16/20 PREPROCEDURE DIAGNOSES: End-stage renal disease with poor function right brachial axillary graft POSTPROCEDURE DIAGNOSES: Same PROCEDURE: 1. Ultrasound-guided access right brachial axillary graft 2. Right upper extremity fistulogram and central venogram 3. Angioplasty right brachial axillary graft and axillary vein with 8 x 200 Goodwin balloon 4. Thrombectomy right brachial axillary graft was 7 x 40 Goodwin balloon and 4 mg tPA 5. Completion venograms SURGEON: Familia Aleman MD ANESTHESIA: Local anesthesia 3 mL lidocaine. Moderate intravenous conscious sedation was administered by Dr. Aleman. The patient was independently monitored by registered nurse assigned to the Department of radiology using automated blood pressure, EKG, and pulse oximetry. The details sedation record is permanently stored in the hospital information system. The following is a brief sedation record: Start time 15:59, stop time 16:21, Versed 0.5 mg IV, fentanyl 25 g IV, heparin 5000 units IV. CONTRAST: 20 mL Isovue-300 INDICATION FOR PROCEDURE: This a very pleasant 69-year-old patient with a right brachial axillary Artegraft. They've had difficulty with cannulation flows. Risks benefits and alternatives to fistulogram potential intervention were explained to the patient she is agreeable to proceed. Informed consent was obtained. INTERPRETATION: 1. The AV anastomosis is widely patent on ultrasound, please see images. The area of banding done after AV graft placement for right hand steal syndrome is appropriately narrowed but not stenotic or occluded. Please see images. 2. The AV graft has an area of stenosis in the midportion, but is otherwise widely patent. There is also a 30% stenosis at the outflow junction with the axillary vein. Otherwise, the axillary vein subclavian vein and central veins are widely patent. 3. After angioplasty of the AV graft and the axillary vein with an 8 x 200 Goodwin balloon, we saw a small amount of thrombus within the graft. There was still thrill, and it was not necessarily flow-limiting, but we felt removing the thrombus will be helpful. 4 mg tPA was given and massaged into the graft. 5000 units of heparin was also given through the sheath. We then utilized to 7 x 40 Goodwin balloon at very low inflation to push the thrombus from the graft into the central system. This was done several times to clear the thrombus. Once the thrombus was clear, the thrill improved. We then placed a [id number] suture at the sheath site in the sheath was removed. Pressure was held and sterile dressings were applied. The patient tolerated the procedure and the sedation well. ESTIMATED BLOOD LOSS: Approximately 2 mL. COMPLICATIONS: none. PLAN: It is okay to use the AV access for dialysis. It is okay to resume Plavix tonight, and all other medications as directed. It is okay to resume home diet. We appreciate the opportunity to participate in the care of this patient. FAMILIA ALEMAN MD May 16, 2020 16:44
[2020-05-16 18:04] VITALS: BP 120/60
== END ==
LOC: M IRPRO 14:18
PROVIDERS: ATTEND Surgery Vascular Surgery
DX: T82.590A Other mechanical complication of surgically created arteriovenous fistula, initial encounter (principal); N18.6 End stage renal disease; X58.XXXA Exposure to other specified factors, initial encounter; Z99.2 Dependence on renal dialysis
CPT/HCPCS: 36905; 99152; 99153; C1725; C1769; C1894; J1644; J2250; J2997; J3010; Q9967

== ENCOUNTER → 2020-06-14 | Outpatient (CLI) | payer MEDICARE ==
[~2020-06-14] MED LIST changes: -ALTEPLASE 2MG/2ML VIAL As Ordered ONE; -DEXT4TAB2 PO; -ISOVUE-300 61% 50ML VIAL As Ordered ONE; -LIDOCAINE 1% MDV 20ML VIAL As Ordered ONE; -MIDAZOLAM INJ 2MG/2ML VIAL (J2250 PER 1MG) As Ordered ONE; +SFHGLU4TA PO; -fentaNYL 100 MCG/2 ML INJECTION (J3010) As Ordered ONE
--- NOTE | 2020-06-14 16:05 | REP ---
INDICATION: SHORTNESS OF BREATH. COMPARISON: 04/02/2020 TECHNIQUE: Two views FINDINGS: There is cardiomegaly status quo. There are chronic left basilar changes which appear stable. There are chronic changes along the left lateral chest wall with irregular pleural thickening. There is no change seen involving the right lung field. IMPRESSION: Chronic changes as described above. <Electronically signed by Jayant Jordan > 06/14/20 [id number]
== END ==
LOC: M RAD 14:10
PROVIDERS: ATTEND Nurse Practitioner Adult Health
DX: R06.02 Shortness of breath (principal)

== ENCOUNTER → 2020-06-26 | Outpatient (CLI) | payer MEDICARE ==
[~2020-06-26] MED LIST changes: +LIDO1CRE42 TOP; -LIDO2.5C15 TOP
[2020-06-26 10:40] LABS: BASO # 0.1 10^3/uL (0.0-0.2); BASO % 0.6 % (0.0-1.0); EOS # 0.3 10^3/uL (0.0-0.5); EOS % 2.5 % (0.0-3.0); HEMATOCRIT 37.1 % (36.0-47.0); HEMOGLOBIN 11.7 g/dl (12.0-15.5); LYMPH # 1.2 10^3/uL (1.5-5.0); LYMPH % 10.1 % (24.0-44.0); MEAN CORPUSCULAR HEMOGLOBIN 30.6 pg (27.0-33.0); MEAN CORPUSCULAR HGB CONC 31.5 g/dl (32.0-36.5); MEAN CORPUSCULAR VOLUME 97.1 fl (80.0-96.0); MONO # 1.1 10^3/uL (0.0-0.8); MONO % 8.9 % (2.0-8.0); NEUTROPHILS # 9.4 10^3/uL (1.5-8.5); NEUTROPHILS % 77.4 % (36.0-66.0); PLATELET COUNT, AUTOMATED 372 10^3/uL (150-450); RED BLOOD COUNT 3.82 10^6/uL (4.00-5.40); WHITE BLOOD COUNT 12.1 10^3/uL (4.0-10.0)
[2020-06-26 11:02] LABS: ALBUMIN 3.3 GM/DL (3.2-5.2); BILIRUBIN,TOTAL 0.5 MG/DL (0.2-1.0); CALCIUM LEVEL 8.8 MG/DL (8.8-10.2); CREATININE FOR GFR 3.94 MG/DL (0.55-1.30); POTASSIUM SERUM 4.6 MEQ/L (3.5-5.1); TOTAL PROTEIN 6.8 GM/DL (6.4-8.2)
--- NOTE | 2020-06-26 11:46 | REP ---
INDICATION: PAIN IN RT LEG / LABS 1ST COMPARISON: None. TECHNIQUE: Bilateral lower extremity arterial Doppler was performed. FINDINGS: All numeric values represent peak systolic velocity in cm/sec. On the right: POULTRY FARMER MEAT: 110 biphasic Profunda: 67 biphasic SFA proximal: 102 biphasic SFA mid: 146 biphasic SFA distal: 125 biphasic Popliteal: 68 biphasic TOMÁS proximal: 88 biphasic Tibioperoneal trunk: 53 biphasic REED DIPPER proximal: 38 biphasic REED DIPPER distal: 32 biphasic TOMÁS distal: 17 biphasic The ankle brachial index could not be calculated On the left: POULTRY FARMER MEAT: 99 biphasic Profunda: 28 biphasic SFA proximal: 97 biphasic SFA mid: 88 biphasic SFA distal: 84 biphasic Popliteal: 72 biphasic TOMÁS proximal: 71 biphasic Tibioperoneal trunk 42 biphasic REED DIPPER proximal: 28 monophasic REED DIPPER distal: No flow seen AT: Distal 63 biphasic The ankle brachial index could not be calculated. Seen in the left popliteal fossa a 3.3 x 1.2 x 2.5 cm sized cystic area was noted consistent with a Styles's cyst. The technologist noted moderate plaque with significant wall calcification in the right mid leg which limited color imaging. Calf vessels were also noted to be very small with all waveforms bidirectional. The left leg was similar to the right in degree of plaque formation and wall calcification. No flow was seen in the left posterior tibial artery from the mid to distal portion IMPRESSION: As above <Electronically signed by Jayant Jordan > 06/26/20 [id number]
== END ==
LOC: M LAB 09:42
PROVIDERS: ATTEND Physician Assistant
DX: M79.604 Pain in right leg (principal); I25.10 Atherosclerotic heart disease of native coronary artery without angina pectoris; Z79.82 Long term (current) use of aspirin

== ENCOUNTER 2020-07-02 12:54 | Emergency (ER) | payer MEDICARE ==
[~2020-07-02] VITALS: Ht 142.2 cm; Wt 90.7 kg
[2020-07-02 14:26] LABS: BASO # 0.1 10^3/uL (0.0-0.2); BASO % 0.5 % (0.0-1.0); EOS # 0.3 10^3/uL (0.0-0.5); EOS % 1.7 % (0.0-3.0); HEMATOCRIT 34.4 % (36.0-47.0); HEMOGLOBIN 10.2 g/dl (12.0-15.5); LYMPH # 0.8 10^3/uL (1.5-5.0); LYMPH % 5.6 % (24.0-44.0); MEAN CORPUSCULAR HEMOGLOBIN 31.2 pg (27.0-33.0); MEAN CORPUSCULAR HGB CONC 29.7 g/dl (32.0-36.5); MEAN CORPUSCULAR VOLUME 105.2 fl (80.0-96.0); MONO # 0.8 10^3/uL (0.0-0.8); MONO % 5.2 % (2.0-8.0); NEUTROPHILS % 86.5 % (36.0-66.0); PLATELET COUNT, AUTOMATED 306 10^3/uL (150-450); RED BLOOD COUNT 3.27 10^6/uL (4.00-5.40); WHITE BLOOD COUNT 15.1 10^3/uL (4.0-10.0)
[2020-07-02 14:54] LABS: ALBUMIN 3.4 GM/DL (3.2-5.2); ALT/SGPT 61 U/L (12-78); BILIRUBIN,DIRECT 0.1 MG/DL (0.0-0.2); BILIRUBIN,TOTAL 0.4 MG/DL (0.2-1.0); BLOOD UREA NITROGEN 88 MG/DL (7-18); CALCIUM LEVEL 7.8 MG/DL (8.8-10.2); CARBON DIOXIDE LEVEL 20 MEQ/L (21-32); CHLORIDE LEVEL 110 MEQ/L (98-107); CK-MB VALUE MASS 2.5 NG/ML (<3.6); CPK CREATINE PHOSPHOKINASE 170 U/L (26-192); CREATININE FOR GFR 6.14 MG/DL (0.55-1.30); GLOMERULAR FILTRATION RATE 7.2 (>39); GLUCOSE, FASTING 83 MG/DL (70-100); LIPASE 235 U/L (73-393); MAGNESIUM LEVEL 1.7 MG/DL (1.8-2.4); MB/CK RELATIVE INDEX 1.47 (< OR =4); POTASSIUM SERUM 5.5 MEQ/L (3.5-5.1); SODIUM LEVEL 141 MEQ/L (136-145); TOTAL PROTEIN 6.8 GM/DL (6.4-8.2); TROPONIN I < 0.02 NG/ML (< 0.10)
[2020-07-02 14:57] LABS: RSV AMPLIFICATION NEGATIVE (NEGATIVE)
--- NOTE | 2020-07-02 15:19 | REP ---
INDICATION: Abdominal Pain COMPARISON: None. TECHNIQUE: Upright view of the chest with supine and upright views of the abdomen and pelvis. FINDINGS: Frontal view of the chest demonstrates left lower lobe opacity and suspected pleural effusion with diffuse bilateral chronic changes. Abdomen and pelvis demonstrates nonspecific bowel gas pattern without obvious obstruction or perforation. Skeletal structures demonstrate age-related degenerative changes. IMPRESSION: 1. Chest x-ray cannot exclude acute left lower lobe opacities and possible small pleural effusion. 2. Abdomen demonstrates a relatively nonspecific bowel gas pattern. <Electronically signed by John King > 07/02/20 [id number]
--- NOTE | 2020-07-02 15:59 | REP ---
INDICATION: further evaluate LLL; SOB COMPARISON: 08/07/2019 TECHNIQUE: Axial noncontrast images from the thoracic inlet to the upper abdomen with coronal and sagittal reformations. This CT examination was performed using the following dose reduction techniques: Automated exposure control, adjustment of mA and/or kv according to the patient's size, and use of iterative reconstruction technique. FINDINGS: Chronic emphysematous changes along with age-related interstitial changes and bilateral pleuroparenchymal changes (left greater than right) are essentially unchanged compared to 08/07/2019. No acute consolidation, effusion or pneumothorax. Tracheobronchial tree is patent. Mediastinum demonstrates atherosclerotic changes to the thoracic aorta and coronary arteries without aortic aneurysm or cardiomegaly. No pericardial effusion. No obvious adenopathy. IMPRESSION: Chronic stable changes when compared to 08/07/2019. No obvious acute mediastinal or pleuroparenchymal process. <Electronically signed by John King > 07/02/20 [id number]
[2020-07-02 17:12] VITALS: BP 171/74
--- NOTE | 2020-07-03 05:39 | ECGEPIP ---
[facility] - ED Test Date: 2020-07-02 Pat Name: MARYBETH HERNADEZ Department: Room: - Gender: Female Community Development Specialist: LR : 1950 Requested By: SUZY GIRALDO Order Number: [id number] Reading MD: Sterling rAriaga Measurements Intervals [place] Rate: 56 P: 42 [place]: 156 QRS: 7 QRSD: 128 T: 161 QT: 498 QTc: 480 Interpretive Statements Sinus bradycardia Left bundle branch block SIMILAR TO 03/01/20 Electronically Signed on 07-03-2020 5:39:41 EDT by Sterling Arriaga
== END 2020-07-02 17:29 | disposition home or self-care (01) ==
LOC: M ED 12:54
DX: R19.7 Diarrhea, unspecified (principal); E87.70 Fluid overload, unspecified; I50.9 Heart failure, unspecified; I25.2 Old myocardial infarction; J45.909 Unspecified asthma, uncomplicated; K21.9 Gastro-esophageal reflux disease without esophagitis; Z79.899 Other long term (current) drug therapy; Z79.82 Long term (current) use of aspirin; Z79.890 Hormone replacement therapy; Z79.01 Long term (current) use of anticoagulants; Z79.4 Long term (current) use of insulin; Z88.1 Allergy status to other antibiotic agents; Z91.040 Latex allergy status; Z88.8 Allergy status to other drugs, medicaments and biological substances; Z88.2 Allergy status to sulfonamides; Z88.5 Allergy status to narcotic agent; Z95.1 Presence of aortocoronary bypass graft

== ENCOUNTER 2020-08-01 18:08 | Emergency (ER) | payer MEDICARE ==
[~2020-08-01] VITALS: Ht 142.2 cm; Wt 86.8 kg
[2020-08-01] MEDS ORDERED: fentaNYL 100 MCG/2 ML INJECTION (J3010) IV ONE (19:45)
--- NOTE | 2020-08-01 20:16 | REPVR ---
PROCEDURE INFORMATION: Exam: CT Abdomen And Pelvis Without Contrast Exam date and time: 08/01/2020 7:41 PM Age: 69 years old Clinical indication: Abdominal pain; Generalized; Additional info: Gen abd pain TECHNIQUE: Imaging protocol: Computed tomography of the abdomen and pelvis without contrast. Radiation optimization: All CT scans at this facility use at least one of these dose optimization techniques: automated exposure control; mA and/or kV adjustment per patient size (includes targeted exams where dose is matched to clinical indication); or iterative reconstruction. COMPARISON: CT ABD PELVIS W/O CONTRAST 02/23/2019 6:24 PM FINDINGS: Lungs: Parenchymal opacities both lung bases most consistent with atelectasis and/or scarring. Pleural spaces: Small bilateral pleural effusions. Liver: Normal. No mass. Gallbladder and bile ducts: Normal. No calcified stones. No ductal dilation. Pancreas: There is diffuse pancreatic atrophy. Spleen: Normal. No splenomegaly. Adrenal glands: Normal. No mass. Kidneys and ureters: Normal. No hydronephrosis. Stomach and bowel: Boggy thick-walled appearance of the right hemicolon. Finding may be secondary to incomplete distention. Clinical correlation to exclude other pathology suggested. Appendix: No evidence of appendicitis. Intraperitoneal space: There is a segment of acute inflammation in the mid sigmoid colon and adjacent pericolonic fat without evidence of a drainable abscess or free air, consistent with acute diverticulitis. Vasculature: The aortoiliac vessels demonstrate mild atherosclerotic calcification. Lymph nodes: Unremarkable. No enlarged lymph nodes. Urinary bladder: Unremarkable as visualized. Reproductive: Unremarkable as visualized. Bones/joints: The spine demonstrates moderate degenerative changes. Moderate central spinal stenosis L2-L3, slight anterolisthesis of L3 on L4. Severe central spinal stenosis L3-L4. Soft tissues: Unremarkable. Other findings: Levoscoliosis. IMPRESSION: 1. There is diffuse pancreatic atrophy. 2. There is a segment of acute inflammation in the mid sigmoid colon and adjacent pericolonic fat without evidence of a drainable abscess or free air, consistent with acute diverticulitis. 3. Boggy thick-walled appearance of the right hemicolon. Finding may be secondary to incomplete distention. Clinical correlation to exclude other pathology suggested. Electronically signed by: Pito Owen On 08/01/2020 20:16:03 PM
[2020-08-01 20:35] LABS: BASO # 0.1 10^3/uL (0.0-0.2); BASO % 0.2 % (0.0-1.0); EOS # 0.1 10^3/uL (0.0-0.5); EOS % 0.3 % (0.0-3.0); HEMATOCRIT 27.8 % (36.0-47.0); HEMOGLOBIN 8.9 g/dl (12.0-15.5); LYMPH # 0.5 10^3/uL (1.5-5.0); LYMPH % 1.8 % (24.0-44.0); MEAN CORPUSCULAR HEMOGLOBIN 31.3 pg (27.0-33.0); MEAN CORPUSCULAR VOLUME 97.9 fl (80.0-96.0); MONO # 1.3 10^3/uL (0.0-0.8); MONO % 4.8 % (2.0-8.0); NEUTROPHILS # 24.9 10^3/uL (1.5-8.5); NEUTROPHILS % 92.2 % (36.0-66.0); PLATELET COUNT, AUTOMATED 417 10^3/uL (150-450); RED BLOOD COUNT 2.84 10^6/uL (4.00-5.40); WHITE BLOOD COUNT 27.1 10^3/uL (4.0-10.0)
[2020-08-01 20:57] LABS: INR 1.08; PROTHROMBIN TIME 14.2 SECONDS (12.5-14.3)
[2020-08-01 20:58] LABS: PARTIAL THROMBOPLASTIN TIME 38.5 SECONDS (24.2-38.5)
[2020-08-01] MEDS ORDERED: ERTAPENEM SODIUM 1 GM in NS MINI-BAG PLUS 50 ML IV ONE (21:05)
[2020-08-01 21:26] LABS: ALBUMIN 2.3 GM/DL (3.2-5.2); ALT/SGPT 37 U/L (12-78); BILIRUBIN,DIRECT 0.3 MG/DL (0.0-0.2); BILIRUBIN,TOTAL 0.6 MG/DL (0.2-1.0); BLOOD UREA NITROGEN 18 MG/DL (7-18); CARBON DIOXIDE LEVEL 32 MEQ/L (21-32); CHLORIDE LEVEL 95 MEQ/L (98-107); CK-MB VALUE MASS 2.5 NG/ML (<3.6); CPK CREATINE PHOSPHOKINASE 141 U/L (26-192); GLOMERULAR FILTRATION RATE 19.4 (>39); GLUCOSE, FASTING 114 MG/DL (70-100); LIPASE 169 U/L (73-393); MB/CK RELATIVE INDEX 1.77 (< OR =4); POTASSIUM SERUM 3.5 MEQ/L (3.5-5.1); SODIUM LEVEL 134 MEQ/L (136-145); TOTAL PROTEIN 6.1 GM/DL (6.4-8.2); TROPONIN I < 0.02 NG/ML (< 0.10)
[2020-08-01] MEDS ORDERED: LEVO125T4 PO (22:04)
[2020-08-01] MEDS ORDERED: D31000TA2 PO (22:07)
[2020-08-01] MEDS ORDERED: BRIL90TA PO (22:12)
[2020-08-01] MEDS ORDERED: MED REC COMMENT (22:17)
[2020-08-01 23:13] LABS: RSV AMPLIFICATION NEGATIVE (NEGATIVE)
[2020-08-02 00:43] VITALS: BP 142/72
--- NOTE | 2020-08-02 20:44 | ECGEPIP ---
[facility] - ED Test Date: 2020-08-01 Pat Name: MARYBETH HERNADEZ Department: Room: - Gender: Female Erp Technical Lead: janine : 1950 Requested By: KOKI Kay Order Number: [id number] Reading MD: Lynn Womack Measurements Intervals [place] Rate: 118 P: 67 [place]: 136 QRS: 19 QRSD: 126 T: 189 QT: 362 QTc: 507 Interpretive Statements Sinus tachycardia with premature atrial complexes Left bundle branch block prolonged qtc increased rate 07/02/20 Electronically Signed on 08-02-2020 20:44:29 EDT by Lynn Womack
== END 2020-08-02 00:47 | disposition short-term general hospital (02) ==
LOC: M ED 18:08 → EDBD 18:08 → M ED 08-02 00:47
DX: K57.30 Diverticulosis of large intestine without perforation or abscess without bleeding (principal); N18.6 End stage renal disease; E11.9 Type 2 diabetes mellitus without complications; I50.9 Heart failure, unspecified; J45.909 Unspecified asthma, uncomplicated; Z88.8 Allergy status to other drugs, medicaments and biological substances; Z91.040 Latex allergy status; Z95.5 Presence of coronary angioplasty implant and graft; Z99.2 Dependence on renal dialysis
CPT/HCPCS: 74176; 80048; 80076; 82550; 82553; 83690; 84484; 85025; 85610; 85730; 87631; 93005; 93041; 96361; 96374; 99285; J1335; J3010

== ENCOUNTER 2020-09-08 16:04 | Emergency (ER) | payer MEDICARE ==
[~2020-09-08] VITALS: Ht 142.2 cm; Wt 86.4 kg
[~2020-09-08 16:04] MED LIST changes: +BRIL90TA PO; +LEVO125T4 PO; +MED REC COMMENT
[2020-09-08] MEDS ORDERED: LABETALOL 100MG/20ML VIAL IV STA (17:46)
--- NOTE | 2020-09-08 18:04 | REP ---
INDICATION: DYSPNEA/COUGH. COMPARISON: 06/14/2020. TECHNIQUE: Single portable AP view of the chest was performed. FINDINGS: There is poor ventilation. There is elevation of the right hemidiaphragm. Chronic scarring is noted in the left base. There is no definite superimposed acute infiltrate. The heart and mediastinum are unchanged. Multiple sternal wires are present. There is a right central venous catheter with the tip in the right atrium. IMPRESSION: Chronic findings without evidence of acute infiltrate. <Electronically signed by Ronny Garza > 09/08/20 1800
[2020-09-08 19:40] VITALS: BP 171/70
--- NOTE | 2020-09-08 20:02 | ECGEPIP ---
[facility] - ED Test Date: 2020-09-08 Pat Name: MARYBETH HERNADEZ Department: Room: - Gender: Female Conveyancer: IRLANDA : 1950 Requested By: KEYON GIRALDO Order Number: [id number] Reading MD: Lynn Womack Measurements Intervals [place] Rate: 99 P: 60 [place]: 148 QRS: 10 QRSD: 130 T: 175 QT: 384 QTc: 492 Interpretive Statements Normal sinus rhythm Left bundle branch block prolonged qtc decreased rate 08/01/20 Electronically Signed on 09-08-2020 20:02:17 EDT by Lynn Womack
[2020-09-08 20:24] LABS: BASO # 0.1 10^3/uL (0.0-0.2); BASO % 0.4 % (0.0-1.0); EOS # 0.1 10^3/uL (0.0-0.5); EOS % 0.9 % (0.0-3.0); HEMOGLOBIN 10.2 g/dl (12.0-15.5); LYMPH # 0.6 10^3/uL (1.5-5.0); LYMPH % 4.2 % (24.0-44.0); MEAN CORPUSCULAR HEMOGLOBIN 31.5 pg (27.0-33.0); MEAN CORPUSCULAR HGB CONC 30.9 g/dl (32.0-36.5); MEAN CORPUSCULAR VOLUME 101.9 fl (80.0-96.0); MONO # 0.6 10^3/uL (0.0-0.8); NEUTROPHILS # 12.7 10^3/uL (1.5-8.5); NEUTROPHILS % 89.9 % (36.0-66.0); PLATELET COUNT, AUTOMATED 388 10^3/uL (150-450); RED BLOOD COUNT 3.24 10^6/uL (4.00-5.40); WHITE BLOOD COUNT 14.1 10^3/uL (4.0-10.0)
[2020-09-08 20:46] LABS: ALBUMIN 3.1 GM/DL (3.2-5.2); ALT/SGPT 32 U/L (12-78); BILIRUBIN,DIRECT 0.1 MG/DL (0.0-0.2); BILIRUBIN,TOTAL 0.3 MG/DL (0.2-1.0); BLOOD UREA NITROGEN 15 MG/DL (7-18); CALCIUM LEVEL 8.6 MG/DL (8.8-10.2); CARBON DIOXIDE LEVEL 29 MEQ/L (21-32); CHLORIDE LEVEL 99 MEQ/L (98-107); CK-MB VALUE MASS 2.7 NG/ML (<3.6); CPK CREATINE PHOSPHOKINASE 44 U/L (26-192); CREATININE FOR GFR 2.39 MG/DL (0.55-1.30); GLOMERULAR FILTRATION RATE 21.3 (>39); GLUCOSE, FASTING 101 MG/DL (70-100); MB/CK RELATIVE INDEX 6.14 (< OR =4); SODIUM LEVEL 134 MEQ/L (136-145); TOTAL PROTEIN 6.7 GM/DL (6.4-8.2); TROPONIN I < 0.02 NG/ML (< 0.10)
[2020-09-08 22:30] VITALS: BP 156/79
== END 2020-09-08 22:40 | disposition home or self-care (01) ==
LOC: EDBD 16:04 → M ED 17:07
DX: I10 Essential (primary) hypertension (principal); R06.02 Shortness of breath; E11.9 Type 2 diabetes mellitus without complications; N18.9 Chronic kidney disease, unspecified; Z99.2 Dependence on renal dialysis; Z95.5 Presence of coronary angioplasty implant and graft; Z91.040 Latex allergy status; Z88.8 Allergy status to other drugs, medicaments and biological substances; Z88.1 Allergy status to other antibiotic agents

== ENCOUNTER 2020-10-10 13:51 | Inpatient (IN) | payer MEDICARE ==
[~2020-10-10] VITALS: Ht 142.2 cm; Wt 76.9 kg
[2020-10-10 16:31] LABS: BASO # 0.1 10^3/uL (0.0-0.2); BASO % 0.6 % (0.0-1.0); EOS % 0.4 % (0.0-3.0); HEMOGLOBIN 11.3 g/dl (12.0-15.5); LYMPH # 0.9 10^3/uL (1.5-5.0); LYMPH % 9.8 % (24.0-44.0); MEAN CORPUSCULAR HEMOGLOBIN 29.7 pg (27.0-33.0); MEAN CORPUSCULAR HGB CONC 30.5 g/dl (32.0-36.5); MEAN CORPUSCULAR VOLUME 97.4 fl (80.0-96.0); MONO # 0.6 10^3/uL (0.0-0.8); MONO % 6.1 % (2.0-8.0); NEUTROPHILS # 7.4 10^3/uL (1.5-8.5); NEUTROPHILS % 82.7 % (36.0-66.0); PLATELET COUNT, AUTOMATED 375 10^3/uL (150-450)
--- NOTE | 2020-10-10 16:52 | REP ---
INDICATION: sob and cough. COMPARISON: Comparison chest x-ray September 08, 2020. TECHNIQUE: Portable upright AP radiograph. FINDINGS: A right-sided tunnel central venous catheter is seen in place with its tip in the expected location of the right atrium. Mild cardiomegaly is observed. Prior sternotomy wires are seen. There is elevation of the right hemidiaphragm again noted. There is perihilar pleuroparenchymal fibrosis on the left unchanged. Advanced arthropathy is seen in the shoulders left greater than right. IMPRESSION: Mild cardiomegaly. Elevated right hemidiaphragm. Pleuroparenchymal fibrosis left mid lung field. No acute infiltrate seen. <Electronically signed by Yang Hurt > 10/10/20 [id number]
[2020-10-10 17:00] LABS: ALBUMIN 3.4 GM/DL (3.2-5.2); ALT/SGPT 30 U/L (12-78); BILIRUBIN,TOTAL 0.5 MG/DL (0.2-1.0); BLOOD UREA NITROGEN 46 MG/DL (7-18); CALCIUM LEVEL 8.7 MG/DL (8.8-10.2); CARBON DIOXIDE LEVEL 24 MEQ/L (21-32); CHLORIDE LEVEL 92 MEQ/L (98-107); CK-MB VALUE MASS 3.4 NG/ML (<3.6); CPK CREATINE PHOSPHOKINASE 78 U/L (26-192); CREATININE FOR GFR 5.33 MG/DL (0.55-1.30); GLOMERULAR FILTRATION RATE 8.4 (>39); GLUCOSE, FASTING 88 MG/DL (70-100); MB/CK RELATIVE INDEX 4.36 (< OR =4); NT-PRO BNP 3129 PG/ML (<125); POTASSIUM SERUM 5.7 MEQ/L (3.5-5.1); SODIUM LEVEL 128 MEQ/L (136-145); TOTAL PROTEIN 7.4 GM/DL (6.4-8.2); TROPONIN I < 0.02 NG/ML (< 0.10)
[2020-10-10] MEDS ORDERED: ISOVUE-370 76% 100ML VIAL As Ordered ONE (18:06)
--- NOTE | 2020-10-10 20:57 | REPVR ---
PROCEDURE INFORMATION: Exam: CT Abdomen And Pelvis With Contrast Exam date and time: 10/10/2020 8:20 PM Age: 70 years old Clinical indication: Nausea and vomiting TECHNIQUE: Imaging protocol: Computed tomography of the abdomen and pelvis with contrast. Radiation optimization: All CT scans at this facility use at least one of these dose optimization techniques: automated exposure control; mA and/or kV adjustment per patient size (includes targeted exams where dose is matched to clinical indication); or iterative reconstruction. Contrast material: ISOVUE 370; Contrast volume: 100 ml; Contrast route: INTRAVENOUS (IV); COMPARISON: CT ABD PELVIS W/O CONTRAST 08/01/2020 7:35 PM FINDINGS: Lungs: Near complete atelectasis or consolidation of the right lower lobe and mild left lower lobe and lingular fibro-atelectatic change. Pleural spaces: Trace bilateral pleural effusions. Liver: There is low attenuation adjacent to the falciform ligament of the liver consistent with focal fatty infiltration. Gallbladder and bile ducts: Normal. No calcified stones. No ductal dilation. Pancreas: Pancreatic atrophy for age. Spleen: Normal. No splenomegaly. Adrenal glands: Normal. No mass. Kidneys and ureters: Mild bilateral renal atrophy. Stomach and bowel: Slight colonic wall thickening with areas of pericolonic edema consistent with minimal nonspecific pancolitis. Colonic diverticulosis, greatest in the sigmoid without diverticulitis. Appendix: There are no changes of appendicitis. A normal appendix is not seen. Intraperitoneal space: Unremarkable. No free air. No significant fluid collection. Vasculature: The ascending thoracic aorta measures 27 mm. The main pulmonary artery measures 21 mm. There is mild calcification of the abdominal aorta with extension into the iliac arteries. Lymph nodes: Unremarkable. No enlarged lymph nodes. Urinary bladder: Unremarkable as visualized. Reproductive: Unremarkable as visualized. Bones/joints: Status post sternotomy and CABG. Soft tissues: Unremarkable. IMPRESSION: 1. Near complete atelectasis or consolidation of the right lower lobe which is increased since 08/01/2020. Mild left base fibro-atelectatic change is similar and there are trace bilateral pleural effusions which are probably similar. 2. Mild bilateral renal atrophy. 3. Minimal nonspecific pancolitis which is slightly increased since the prior study. 4. Colonic diverticulosis without diverticulitis. 5. Pancreatic atrophy for age. Electronically signed by: Gage Kirby On 10/10/2020 20:57:10 PM
[2020-10-11] MEDS ORDERED: ACETAMINOPHEN TAB 650MG DOSE (2X325MG) PO PRN (00:05)
[2020-10-11] MEDS ORDERED: MOM 30ML SUSPENSION UDC PO PRN (00:05)
[2020-10-11] MEDS ORDERED: MAALOX 30 ML SUSP *UDC PO PRN (00:05)
[2020-10-11] MEDS ORDERED: DEXTROSE 50% 50 ML SYRINGE IV PRN (00:30)
[2020-10-11] MEDS ORDERED: GLUCOSE 4GM CHEW TABLET PO PRN (00:30)
[2020-10-11] MEDS ORDERED: GLUCAGON INJ 1MG VIAL SC PRN (00:30)
--- NOTE | 2020-10-11 00:32 | HPEPDOC ---
[facility] Medical History & Physical Date of Admission Oct 11, 2020 Date of Service: Oct 11, 2020 History and Physical CHIEF COMPLAINT: Shortness of breath HISTORY OF PRESENT ILLNESS: 70-year-old female with a past medical history of ESRD on hemodialysis MWF, CAD status post stenting and CABG in July/2020, diastolic CHF, chronic left bundle branch block, type 2 diabetes, asthma, GERD, GI bleeding. Presents to the ER with symptoms of abdominal pain nausea vomiting and cough for the past week. She was en route to dialysis when she felt unwell and was brought to [facility] ER. Patient's last completed dialysis session was on . Dr. Peters contacted the ER and recommended the patient be admitted for hemodialysis on 10/11/2020. Patient arrived on 4 L of oxygen which is an increase from her prior level of the home at [address] abdomen showed atelectasis or consolidation of the right lower lobe increased from prior as well as nonspecific pancolitis slightly increased from prior. Patient was also tested positive for enterovirus on respiratory viral panel. Patient did not have a leukocytosis or fever. Potassium was elevated at 5.7. BNP elevated at 3100. Creatinine 5.33. Patient will be admitted for hemodialysis. PAST MEDICAL HISTORY: End-stage renal disease on hemodialysis Tuesday last session on 10/06/2020 CAD status post stenting, recent CABG in July/2020 Diastolic CHF Type 2 diabetes Asthma GERD Colonic GI bleeding PAST SURGICAL HISTORY: Appendectomy Cataract surgery Carpal tunnel surgery Tonsillectomy Left ankle fracture repair SOCIAL HISTORY: Patient denies smoking Patient denies etoh use Patient denies illicit drug use FAMILY HISTORY: Patient's mother had a COPD ALLERGIES: Please see below. REVIEW OF SYSTEMS: 10 point ROS conducted with patient, relevant findings noted in the HPI HOME MEDICATIONS: Please see below. PHYSICAL EXAMINATION: VITAL SIGNS: please see below General: NAD, comfortable HEENT: PERRLA, EOMI, sclerae clear Neck: supple, normal ROM, no JVD Respiratory: Reduced breath sounds right lower lobe. Poor inspiratory effort. No wheeze. CVS: RRR, normal S1, S2, no murmurs Abdo: soft, no masses, no hepatosplenomegaly, BS+, no rebound tenderness Extremities: no edema, pulses 2+ MSK: no joint deformities, normal ROM Neuro: no focal neuro deficits, moving all 4 extremities, CN2-12 intact. Strength 5/5 in all 4 extremities. No nystagmus. Psych: calm, cooperative, AAO x 3 LABORATORY DATA: See below. IMAGING: CT abdomen pelvis with IV contrast on 10/10/2020 IMPRESSION: 1. Near complete atelectasis or consolidation of the right lower lobe which is increased since 08/01/2020. Mild left base fibro-atelectatic change is similar and there are trace bilateral pleural effusions which are probably similar. 2. Mild bilateral renal atrophy. 3. Minimal nonspecific pancolitis which is slightly increased since the prior study. 4. Colonic diverticulosis without diverticulitis. 5. Pancreatic atrophy for age. CXR on 10/10/2020 IMPRESSION: Mild cardiomegaly. Elevated right hemidiaphragm. Pleuroparenchymal fibrosis left mid lung field. No acute infiltrate seen. MICROBIOLOGY: Please see below. ASSESSMENT: . . PLAN: ESRD on HD (MWF) / Diastolic CHF - missed last 2 HD sessions - c/o SOB, baseline 2LPM, arrived on 4LPM, weaned down to 2L - CT abdo showed RLL atelectasis, possible effusion - Nephrology, Dr. Marcial consulted for HD, fluid level management. Abdominal pain/nausea - likely 2/2 pancolitis, likely viral in etiology - no leukocytosis, no fever - will check GI panel - check procal CAD s/p stenting, CABG in 07/2020 - c/w ASA, Plavix, and Atorvastatin HTN - c/w Metoprolol - HD for fluid management, expect improvement in BP IDDM2 - Will c/w adjusted dose of long acting insulin and ISS Asthma - No evidence of exacerbation - c/w inhaled therapy as ordered Hypothyroidism - c/w Levothyroxine GERD / Recent history of GI bleed 2/2 ulcer in colon - c/w Omeprazole DVT prophylaxis - Will start TEDs / Sequentials Vital Signs Vital Signs Date Time Temp Pulse Resp B/P (MAP) Pulse Ox O2 Delivery O2 Flow Rate FiO2 10/10/20 22:58 18 Nasal Cannula 2.0 10/10/20 22:56 175/77 (109) 10/10/20 22:51 90 98 Laboratory Data Labs 24H Laboratory Tests 2 10/10/20 16:21: Immature Granulocyte % (Auto) 0.4, Neutrophils (%) (Auto) 82.7H, Lymphocytes (%) (Auto) 9.8L, Monocytes (%) (Auto) 6.1, Eosinophils (%) (Auto) 0.4, Basophils (%) (Auto) 0.6, Neutrophils # (Auto) 7.4, Lymphocytes # (Auto) 0.9L, Monocytes # (Auto) 0.6, Eosinophils # (Auto) 0.0, Basophils # (Auto) 0.1, Nucleated Red Blood Cells % (auto) 0.0, Anion Gap 12, Glomerular Filtration Rate 8.4L, Calcium Level 8.7L, Total Bilirubin 0.5, Aspartate Amino Transf (AST/SGOT) 43H, Alanine Aminotransferase (ALT/SGPT) 30, Alkaline Phosphatase 132H, Total Creatine Kinase 78, Creatine Kinase MB 3.4, Creatine Kinase MB Relative Index 4.36H, Troponin I < 0.02, QC-Wnl-B-Type Natriuretic Peptide 3129H, Total Protein 7.4, Albumin 3.4, Albumin/Globulin Ratio 0.9L 10/10/20 19:58: POC Lactate (Misc Panel) 0.69 CBC/BMP Laboratory Tests 10/10/20 16:21 Microbiology Microbiology 10/10/20 Respiratory Virus Panel (PCR) ([facility]) - Final, Complete Human Rhinovirus/Enterovirus Home Medications Scheduled Aspirin (Aspirin EC) 81 Mg Tab, 81 MG PO DAILY Atorvastatin Calcium (Atorvastatin Calcium) 40 Mg Tab, 40 MG PO DAILY Budesonide/Formoterol (Symbicort 160-4.5 Mcg Inhaler) 6 Gm Hfa.aer.ad, 2 PUFF INH BID Calcitriol (Calcitriol) 0.25 Mcg Cap, 0.25 MCG PO 3XW RECEIVES AT DIALYIS MON/WED/FRI Cholecalciferol (Vitamin D3) (Vitamin D3) 1,000 Unit Tablet, 1,000 UNITS PO DAILY Clopidogrel Bisulfate (Clopidogrel) 75 Mg Tablet, 75 MG PO DAILY Dulaglutide (Trulicity) 1.5 Mg/0.5 Ml Pen.injctr, 1.5 MG SC QWEEK FR[place] Insulin Aspart (Insulin Aspart Flexpen) 100 Unit/1 Ml Insuln.pen, 20 UNITS SUBQ TID Insulin Glargine,Hum.rec.anlog (Lantus Solostar) 100 Unit/1 Ml Insuln.pen, 30 UNITS SC DAILY Levothyroxine Sodium (Levothyroxine Sodium) 125 Mcg Tablet, 125 MCG PO DAILY Metoprolol Tartrate (Metoprolol Tartrate) 50 Mg Tablet, 50 MG PO BID Omeprazole (Omeprazole) 20 Mg Tab, 20 MG PO DAILY Torsemide (Torsemide) 20 Mg Tablet, 40 MG PO 4XWK TAKES ON NON-DIALYSIS DAYS TUE//TUE/TUE Scheduled PRN Acetaminophen (Acetaminophen) 500 Mg Tablet, 1,000 MG PO Q6H PRN for PAIN Albuterol Sulfate (Ventolin Hfa) 108 Mcg/Act Aer, 2 PUFFS INH QID PRN for SHORTNESS OF BREATH Dextrose (Glucose) 4 Gm Chw, 4 GM PO ASDIRECTED PRN for BLOOD SUGAR < 50 Loperamide HCl (Imodium A-D) 2 Mg Tablet, 2 MG PO DAILY PRN for DIARRHEA Nitroglycerin (Nitrostat) 0.4 Mg Subl, 0.4 MG SL Q5MP PRN for CHEST PAIN Miscellaneous Medications [Med Rec Comment] PT IS POOR HISTORIAN. NO FAMILY AVAILABLE TO VERIFY. CALLED [facility] ON BLOOD THINNER. PT PICKED UP 90 DAYS OF BRILINTA 06/12 AND 30 DAYS OF PLAVIX 07/11. PT UNSURE WHICH SHE IS TAKING. Allergies Coded Allergies: cephalexin (Verified Allergy, Severe, RASH, DYSPNEA, 11/05/19) gatifloxacin (Verified Allergy, Severe, RASH, DYSPNEA, 11/05/19) tramadol (Verified Allergy, Severe, RASH, DYSPNEA, 11/05/19) silver nitrate (Verified Allergy, Intermediate, HIVES, RASH, 11/05/19) chlorhexidine (Verified Allergy, Mild, RASH, 11/05/19) latex (Verified Allergy, Mild, RED, SWOLLEN, RASH, 11/05/19) nitrofurantoin (Verified Allergy, Mild, RASH, 11/05/19) sulfamethoxazole (Verified Adverse Reaction, Intermediate, EFFECTS KIDNEY FUNCTION, 11/05/19) trimethoprim (Verified Adverse Reaction, Intermediate, EFFECTS KIDNEY FUNCTION, 11/05/19) ANGELINA MURRAY MD Oct 11, 2020 00:32
[2020-10-11] MEDS ORDERED: ALBU83IN INH (00:53)
[2020-10-11] MEDS ORDERED: ACET-907 PO (00:53)
[2020-10-11] MEDS ORDERED: BACITAB PO (00:56)
[2020-10-11] MEDS ORDERED: PROT1TAB2 PO (01:02)
[2020-10-11] MEDS ORDERED: MIDO10TA PO (01:02)
[2020-10-11] MEDS ORDERED: INSUH10VL SC (01:02)
[2020-10-11] MEDS ORDERED: PANT40TA29 PO (01:03)
[2020-10-11 01:06] VITALS: BP 150/86
[2020-10-11] MEDS ORDERED: INSULANT SC (01:07)
[2020-10-11] MEDS ORDERED: HOME MED LIST COMPLETE! XX SCH (01:10)
[2020-10-11 04:47] LABS: CALCIUM LEVEL 8.2 MG/DL (8.8-10.2); CREATININE FOR GFR 5.64 MG/DL (0.55-1.30); GLOMERULAR FILTRATION RATE 7.9 (>39); MAGNESIUM LEVEL 1.8 MG/DL (1.8-2.4); POTASSIUM SERUM 4.8 MEQ/L (3.5-5.1)
[2020-10-11] MEDS: HEPARIN SOD (PORCINE) 5000UNITS/ML 1ML VIAL/SYRINGE SQ SCH ×3 (05:11→22:08)
[2020-10-11 06:00] VITALS: BP 142/64
[2020-10-11] MEDS: CLOPIDOGREL 75 MG TAB PO SCH (06:00)
[2020-10-11] MEDS: LEVOTHYROXINE 125MCG TABLET (0.125MG) PO SCH (06:00)
[2020-10-11] MEDS: HumaLOG INSULIN (NovoLOG) PER UNIT SC SCH ×3 (07:30→17:04)
[2020-10-11] MEDS: SYMBICORT 160/4.5MCG INHALER 6GM INH SCH ×2 (08:00→19:44)
[2020-10-11] MEDS: MIDODRINE 5 MG TAB PO SCH ×3 (08:00→16:52)
[2020-10-11] MEDS ORDERED: ALBUTEROL 90 MCG/ACT 8GM HFA INHALER INH PRN (08:10)
[2020-10-11] MEDS ORDERED: NITROGLYCERIN 0.4 MG SUBL TABLET SL PRN (08:10)
[2020-10-11] MEDS: LACTOBACILLUS ACIDOPHILUS CAP (BACID) PO SCH ×2 (08:31→22:07)
[2020-10-11] MEDS: PANTOPRAZOLE 40MG TAB (PROTONIX) PO SCH (08:32)
[2020-10-11] MEDS: ASPIRIN 81MG ENTERIC TABLET PO SCH (09:00)
[2020-10-11] MEDS: CALCITRIOL 0.25 MCG CAP (S0169) PO SCH (09:00)
[2020-10-11] MEDS: ALBUTEROL SULFATE 2.5 MG/0.5 ML INH NEB SOLN INH SCH ×3 (11:09→19:43)
[2020-10-11 11:54] LABS: BASO # 0.1 10^3/uL (0.0-0.2); BASO % 0.4 % (0.0-1.0); EOS # 0.1 10^3/uL (0.0-0.5); EOS % 0.8 % (0.0-3.0); HEMATOCRIT 37.2 % (36.0-47.0); HEMOGLOBIN 11.3 g/dl (12.0-15.5); LYMPH # 0.5 10^3/uL (1.5-5.0); LYMPH % 4.6 % (24.0-44.0); MEAN CORPUSCULAR HEMOGLOBIN 29.6 pg (27.0-33.0); MEAN CORPUSCULAR HGB CONC 30.4 g/dl (32.0-36.5); MEAN CORPUSCULAR VOLUME 97.4 fl (80.0-96.0); MONO # 0.6 10^3/uL (0.0-0.8); MONO % 5.2 % (2.0-8.0); NEUTROPHILS # 10.5 10^3/uL (1.5-8.5); NEUTROPHILS % 88.6 % (36.0-66.0); PLATELET COUNT, AUTOMATED 317 10^3/uL (150-450); RED BLOOD COUNT 3.82 10^6/uL (4.00-5.40); WHITE BLOOD COUNT 11.8 10^3/uL (4.0-10.0)
--- NOTE | 2020-10-11 13:08 | CR ---
CONSULTATION DATE: 10/11/2020 REQUESTING PHYSICIAN: Jam Menezes M.D. REASON FOR CONSULTATION: To assist in the management of end-stage renal disease. HISTORY OF PRESENT ILLNESS: Mrs. Duran is a 70-year-old female with known history of diabetes, end-stage renal disease, coronary artery disease, congestive heart failure and prior history of GI bleed. She was admitted due to abdominal pain and vomiting yesterday and missed her dialysis. She had frequent episodes of hypotension during dialysis and also developed abdominal pain and vomiting. A CT scan of abdomen and pelvis was done after I discussed her case with the ER physician. It did show infiltrate, right lower lobe and nonspecific pancolitis. The patient missed her dialysis yesterday and needs dialysis today. Due to it, a nephrology consultation was requested and patient was seen this morning. PAST MEDICAL AND SURGICAL HISTORY: 1. Type 2 diabetes. 2. Diastolic congestive heart failure. 3. Coronary artery disease, status post CABG. 4. End-stage renal disease. 5. Asthma. 6. Gastroesophageal reflux disease. 7. History of GI bleed in the past. PAST SURGICAL HISTORY: 1. Appendectomy. 2. Cataract surgery. 3. Carpal tunnel release. 4. Tonsillectomy. 5. . 6. Left ankle fracture repair. 7. AV fistula creation. 8. Permacath placement. 9. She recently also had CABG. PERSONAL AND SOCIAL HISTORY: Patient denies any alcohol, drug or tobacco use. FAMILY HISTORY: Significant for COPD but negative for end-stage renal disease. HOME MEDICATIONS: 1. Aspirin 81 mg daily. 2. Atorvastatin 40 mg daily. 3. Symbicort inhaler 6 mcg two puffs b.i.d. 4. Calcitriol 0.25 mcg three times a week with dialysis. 5. Vitamin D 1000 units daily. 6. Plavix 75 mg daily. 7. Trulicity 1.5 mg once a week. 8. Lantus insulin 30 units daily. 9. Humalog insulin per sliding scale. 10. Levothyroxine 125 mcg daily. 11. Metoprolol 50 mg b.i.d. 12. Omeprazole 20 mg daily. 13. Furosemide 40 mg on nondialysis days. 14. She also uses nitroglycerin as needed for chest pain, albuterol as needed for dyspnea and Tylenol as needed for pain. REVIEW OF SYSTEMS: Patient denies any fever or chills. She developed vomiting on her way to dialysis yesterday. She was not dialyzed and was sent to emergency room for further evaluation. Ears, nose and throat are unremarkable. Cardiovascular system is significant for shortness of breath. She has chronic frequent hypotension and lower extremity edema. Respiratory system is negative for hemoptysis but she does have some cough. She is noted to have right lower lobe infiltrate. GI system is significant for nausea and vomiting on admission. She denies any diarrhea at present. system is significant for a history of frequent UTIs. She denies any flank pain or dysuria at present. Musculoskeletal system is significant for chronic back pain and pain in her feet. Skin is negative for rash but she does have a tiny ulcer on the bottom of left foot. Endocrine system is significant for type 2 diabetes and secondary hypothyroidism. Hematological system is negative for any long-term anticoagulation. She has been dual antiplatelet therapy. PHYSICAL EXAMINATION: The patient is awake and alert at the time of my visit during dialysis today. Temperature is 98 degrees Fahrenheit, heart rate 102 per minute and respiratory rate 24 per minute. Blood pressure at the start of dialysis was 142/96 mmHg and now she is down to 94/50 mmHg. Oxygen saturation is 97% on two liters oxygen. Head is atraumatic. Neck: Supple and JVD is mildly elevated. She has a permacath in her right internal jugular vein. There are no oral thrush ulcers. Heart sounds are regular and lungs have diminished breath sounds at bases. Bowel sounds are normal and abdomen is soft. Extremities: Without any cyanosis or clubbing. She had some exfoliative dermatitis on her feet. She has a small ulcer on the bottom of left foot. Neurologically she is awake, alert and oriented x3. LABORATORY DATA: Today's labs showed WBC count 11.8, hemoglobin 11.3 and hematocrit 37.2. Platelets 317. Sodium 127, potassium 4.8, CO2 24, BUN 48 and creatinine 5.64. Glucose 108 and potassium 8.2. PROBLEMS: 1. End-stage renal disease. The patient did miss her dialysis yesterday. She is already being dialysis this morning. She is already being dialyzed this morning. 2. Hypotension. The patient has recurrent hypotension and I agree with midodrine 10 mg t.i.d. 3. Congestive heart failure. Her volume status is slightly decompensated. She has bilateral to small pleural effusions. We are planning to remove about two liters of fluid as tolerated. 4. Peripheral vascular disease. The patient has significant vascular disease. She has nonspecific pancolitis and also some ischemic changes in her feet. I suspect that she has compromised circulation to her bowels and lower extremities. A CT angiogram of mesenteric arteries and lower extremities is being ordered. 5. Anemia. Her anemia is mild and does not need any urgent intervention at present. 6. Shortness of breath. She does have decompensated volume status and we are trying to remove about two liters of fluid as tolerated. Her blood pressure is low and fluid removal is difficult. Thank you for involving me in the care of Mrs. Duran. I will follow her along with you.
[2020-10-11 13:48] LABS: ALBUMIN 3.4 GM/DL (3.2-5.2); BILIRUBIN,TOTAL 0.4 MG/DL (0.2-1.0); CALCIUM LEVEL 8.6 MG/DL (8.8-10.2); CREATININE FOR GFR 1.69 MG/DL (0.55-1.30); GLOMERULAR FILTRATION RATE 31.8 (>39); TOTAL PROTEIN 7.6 GM/DL (6.4-8.2)
[2020-10-11 14:00] VITALS: BP 93/65
[2020-10-11] MEDS: LEVEMIR (INSULIN DETEMIR) 1 UNITS/0.01ML SC SCH (14:09)
--- NOTE | 2020-10-11 20:14 | IPNPDOC ---
Date Seen The patient was seen on 10/11/20. Progress Note SUBJECTIVE: Patient was seen examined at bedside after she received her dialysis session this morning. Patient states that she feels well, she denies any chest pain shortness of breath palpitations nausea vomiting diarrhea. She continues to experience abdominal pain in the mid lower abdomen approximately 5 out of 10. She attempted to eat a small amount of her lunch but only ate about 30%. She denies any pain in her lower extremities. OBJECTIVE PHYSICAL EXAMINATION: VITAL SIGNS: please see below General: NAD, comfortable HEENT: PERRLA, EOMI, sclerae clear Neck: supple, normal ROM, no JVD Respiratory: lungs CTAB, no wheeze, no rales, no crackles CVS: RRR, normal S1, S2, no murmurs Abdo: soft, no masses, no hepatosplenomegaly, BS+, no rebound tenderness Extremities: no edema, nonpalpable pulses manually. However using bedside Doppler both dorsalis pedis pulses are easily heard. MSK: Patient has an ulcer on the right ball of her foot. She also has small ulcers on the tips of her great toes. These are tender to palpation. There is a great amount of dry skin i.e. xerosis. Neuro: no focal neuro deficits, moving all 4 extremities, CN2-12 intact. Strength 5/5 in all 4 extremities. No nystagmus. Psych: calm, cooperative, AAO x 3 LABORATORY DATA, IMAGING STUDIES, MICROBIOLOGY: Please see below. Echocardiogram: Patient's last echo was performed in May 2018. This showed mild concentric left ventricular hypertrophy. With an LVEF of 70%. Grade 1 LV diastolic dysfunction. DVT prophylaxis ordered?: Patient is on heparin 5000 units every 8 subcu ASSESSMENT AND PLAN: This is a -year-old [RACE] [GENDER] with . PROBLEMS: ESRD on HD (MWF) / Diastolic CHF - missed last 2 HD sessions - c/o SOB, baseline 2LPM, arrived on 4LPM, weaned down to 2L - CT abdo showed RLL atelectasis, possible effusion - Nephrology, Dr. Marcial consulted for HD, fluid level management. Abdominal pain/nausea - likely 2/2 pancolitis, likely viral in etiology, another differential is mesenteric ischemia. Although the patient's lactic acid is normal and her pain is approximately 5 out of 10 which we would expect to be much higher in acute mesenteric ischemia, we will obtain a CT angiogram of the abdomen on 10/12/2020. We will also use the study to evaluate perfusion to the lower extremities. Patient is unable to receive IV contrast this afternoon as the patient received IV contrast on admission less than 24 hours ago per sonography technician. - no leukocytosis, no fever - will check GI panel - check procal Peripheral arterial disease -Patient has cirrhosis and weak pulses in the bilateral lower extremities. Pulses are audible with Doppler bilaterally--CTA abdominal aorta with runoff ordered for 10/12/2020 to evaluate for perfusion to the lower extremities. I discussed the concerns with Dr. Proctor who recommended continue with the study and to contact him should there be any critical stenosis. Right inguinal area wound remnant of prior surgery involving CABG in 07/28 Wound appears to be clean although per RN when they change the dressing it had a foul odor. Wound culture sent Dressings will be changed every 2 days and will involve Hydrofera Blue covered with foam dressing Discussed with Dr. Proctor. Recommends contacting Dr. Marshall after the long weekend to assist with wound healing Patient states she has no pain but the area is slightly indurated. We will obtain ultrasound of the right inguinal area to evaluate for seroma/hematoma. History of diastolic CHF Patient is slightly volume decompensated. Productive symptoms no 2 L of fluid was removed with dialysis. CAD s/p stenting, CABG in 07/2020 - c/w ASA, Plavix, and Atorvastatin HTN - c/w Metoprolol - HD for fluid management, expect improvement in BP IDDM2 - Will c/w adjusted dose of long acting insulin and ISS Asthma - No evidence of exacerbation - c/w inhaled therapy as ordered Hypothyroidism - c/w Levothyroxine GERD/ history of GI bleed 2/2 ulcer in colon - c/w Omeprazole DVT prophylaxis -Heparin 5000 units subcutaneously every 8 hours. VS, I&O, 24H, Fishbone Vital Signs/I&O Vital Signs Date Time Temp Pulse Resp B/P (MAP) Pulse Ox O2 Delivery O2 Flow Rate FiO2 10/11/20 14:00 97.1 99 20 93/65 (74) 96 Nasal Cannula 2.0 I&O- Last 24 Hours up to 6 AM 10/11/20 06:00 Intake Total 0 ml Output Total 0 ml Balance 0 ml Laboratory Data 24H LABS Laboratory Tests 2 10/11/20 01:41: 10/11/20 02:00: Bedside Glucose (Misc Panel) 65L 10/11/20 03:38: Bedside Glucose (Misc Panel) 107 10/11/20 03:40: Anion Gap 10, Glomerular Filtration Rate 7.9L, Calcium Level 8.2L, Magnesium Level 1.8 10/11/20 11:43: Immature Granulocyte % (Auto) 0.4, Neutrophils (%) (Auto) 88.6H, Lymphocytes (%) (Auto) 4.6L, Monocytes (%) (Auto) 5.2, Eosinophils (%) (Auto) 0.8, Basophils (%) (Auto) 0.4, Neutrophils # (Auto) 10.5H, Lymphocytes # (Auto) 0.5L, Monocytes # (Auto) 0.6, Eosinophils # (Auto) 0.1, Basophils # (Auto) 0.1, Nucleated Red Blood Cells % (auto) 0.0, Anion Gap 8, Glomerular Filtration Rate 31.8L, Lactic Acid Level 0.3L, Calcium Level 8.6L, Total Bilirubin 0.4, Aspartate Amino Transf (AST/SGOT) 27, Alanine Aminotransferase (ALT/SGPT) 25, Alkaline Phosphatase 127H, Total Protein 7.6, Albumin 3.4, Albumin/Globulin Ratio 0.8L 10/11/20 12:56: Bedside Glucose (Misc Panel) 74L 10/11/20 16:29: Bedside Glucose (Misc Panel) 107 CBC/BMP Laboratory Tests 10/11/20 03:40 10/11/20 11:43 Microbiology Microbiology 10/11/20 Gram Stain, Received Pending 10/11/20 Wound Culture, Received Pending 10/10/20 Respiratory Virus Panel (PCR) ([facility]) - Final, Complete Human Rhinovirus/Enterovirus ANGELINA MURRAY MD Oct 11, 2020 20:14
[2020-10-11] MEDS ORDERED: ONDANSETRON 4MG/2ML VIAL IV ONE (20:30)
[2020-10-11] MEDS ORDERED: HumaLOG INSULIN (NovoLOG) PER UNIT SC SCH (21:00)
[2020-10-11] MEDS ORDERED: ATORVASTATIN 20 MG TAB PO SCH (21:00)
[2020-10-11 21:04] LABS: CALCIUM LEVEL 8.2 MG/DL (8.8-10.2); CREATININE FOR GFR 2.88 MG/DL (0.55-1.30); GLOMERULAR FILTRATION RATE 17.2 (>39); POTASSIUM SERUM 4.2 MEQ/L (3.5-5.1)
--- NOTE | 2020-10-11 21:48 | REPVR ---
PROCEDURE INFORMATION: Exam: US Abdomen, Limited; Soft Tissue Exam date and time: 10/11/2020 9:19 PM Age: 70 years old Clinical indication: Injury or trauma; Other: S/P pseudoaneurysm repain; Wound, open; Foreign body involvement not specified; Rlq; Injury date: 10/10/2020; Injury details: Patient states she had a pseudoaneurysm repaired; Additional info: Please focus study to R groin, site of wound, seroma/hematom TECHNIQUE: Imaging protocol: US abdomen. Real time ultrasound with image documentation. Limited exam focused on the soft tissues. COMPARISON: CT ABD PELVIS WITH CONTRAST 10/10/2020 8:07 PM FINDINGS: Soft tissues: Imaging in the area of incision in the right inguinal area does not demonstrate any evidence of a mass such as hematoma or seroma. Soft tissue edema demonstrated. IMPRESSION: No evidence of a mass such as a hematoma or seroma. Soft tissue edema. Electronically signed by: Pito Owen On 10/11/2020 21:47:58 PM
[2020-10-11 22:00] VITALS: BP 136/65
[2020-10-12] MEDS: CLOPIDOGREL 75 MG TAB PO SCH (05:33)
[2020-10-12] MEDS: HEPARIN SOD (PORCINE) 5000UNITS/ML 1ML VIAL/SYRINGE SQ SCH ×2 (05:33→17:02)
[2020-10-12] MEDS: LEVOTHYROXINE 125MCG TABLET (0.125MG) PO SCH (05:33)
[2020-10-12 06:00] VITALS: BP 129/60
[2020-10-12 06:29] LABS: BASO # 0.1 10^3/uL (0.0-0.2); BASO % 0.5 % (0.0-1.0); EOS % 0.3 % (0.0-3.0); HEMATOCRIT 38.3 % (36.0-47.0); HEMOGLOBIN 11.2 g/dl (12.0-15.5); LYMPH # 0.8 10^3/uL (1.5-5.0); LYMPH % 8.1 % (24.0-44.0); MEAN CORPUSCULAR HEMOGLOBIN 29.3 pg (27.0-33.0); MEAN CORPUSCULAR HGB CONC 29.2 g/dl (32.0-36.5); MEAN CORPUSCULAR VOLUME 100.3 fl (80.0-96.0); MONO # 0.7 10^3/uL (0.0-0.8); MONO % 6.4 % (2.0-8.0); NEUTROPHILS # 8.5 10^3/uL (1.5-8.5); NEUTROPHILS % 84.3 % (36.0-66.0); PLATELET COUNT, AUTOMATED 331 10^3/uL (150-450); RED BLOOD COUNT 3.82 10^6/uL (4.00-5.40); WHITE BLOOD COUNT 10.1 10^3/uL (4.0-10.0)
[2020-10-12 06:40] LABS: BILIRUBIN,TOTAL 0.3 MG/DL (0.2-1.0); CALCIUM LEVEL 8.7 MG/DL (8.8-10.2); CREATININE FOR GFR 3.52 MG/DL (0.55-1.30); GLOMERULAR FILTRATION RATE 13.6 (>39); MAGNESIUM LEVEL 2.1 MG/DL (1.8-2.4); POTASSIUM SERUM 4.8 MEQ/L (3.5-5.1); TOTAL PROTEIN 7.4 GM/DL (6.4-8.2)
[2020-10-12] MEDS: SYMBICORT 160/4.5MCG INHALER 6GM INH SCH ×2 (07:28→20:10)
[2020-10-12] MEDS: ALBUTEROL SULFATE 2.5 MG/0.5 ML INH NEB SOLN INH SCH ×4 (07:29→20:00)
[2020-10-12] MEDS: HumaLOG INSULIN (NovoLOG) PER UNIT SC SCH ×3 (07:30→17:30)
[2020-10-12] MEDS: MIDODRINE 5 MG TAB PO SCH ×3 (08:00→17:02)
[2020-10-12] MEDS ORDERED: ISOVUE-370 76% 100ML VIAL As Ordered ONE (08:01)
[2020-10-12] MEDS: LACTOBACILLUS ACIDOPHILUS CAP (BACID) PO SCH (08:25)
[2020-10-12] MEDS: CALCITRIOL 0.25 MCG CAP (S0169) PO SCH (08:25)
[2020-10-12] MEDS: ASPIRIN 81MG ENTERIC TABLET PO SCH (08:25)
[2020-10-12] MEDS: PANTOPRAZOLE 40MG TAB (PROTONIX) PO SCH (08:26)
[2020-10-12] MEDS: LEVEMIR (INSULIN DETEMIR) 1 UNITS/0.01ML SC SCH (08:36)
[2020-10-12] MEDS ORDERED: PNEUMOCOCCAL VACCINE 0.5ML SYRINGE (PNEUMOVAX 23) IM ONE (09:00)
[2020-10-12] MEDS ORDERED: guaiFENesin ER 600 MG TAB PO SCH (09:00)
--- NOTE | 2020-10-12 10:13 | REPVR ---
PROCEDURE INFORMATION: Exam: CTA Angiogram of the Abdominal Aorta and Bilateral Lower Extremities (Run-off) With IV Contrast Exam date and time: 10/12/2020 8:58 AM Age: 70 years old Clinical indication: Other: Ischemic colitis, pvd, ischemic ulcers feet TECHNIQUE: Imaging protocol: CT angiogram of the abdominal aorta, pelvis and bilateral lower extremities with IV iodinated contrast. 3D rendering (Not supervised by radiologist): MIP and/or 3D reconstructed images were created by the technologist. Radiation optimization: All CT scans at this facility use at least one of these dose optimization techniques: automated exposure control; mA and/or kV adjustment per patient size (includes targeted exams where dose is matched to clinical indication); or iterative reconstruction. Contrast material: ISOVUE 370; Contrast volume: 100 ml; Contrast route: INTRAVENOUS (IV); COMPARISON: CT ABD PELVIS WITH CONTRAST 10/10/2020 8:07 PM FINDINGS: Aorta: Atherosclerotic changes of the thoracic aorta. There is overall [id number] atherosclerotic disease of the abdominal aorta without gross aneurysm or dissection. Celiac trunk and mesenteric arteries: Moderate to severe narrowing at the origin of the celiac axis. Moderate narrowing at the origin of the SMA. The ISMA origin demonstrates severe narrowing. Renal arteries: Diminutive renal arteries bilaterally with moderate to severe narrowing at the origins. Right iliac arteries: On the right, mild disease of the iliac arterial tree most pronounced in the internal iliac. Right femoral/popliteal arteries: Postoperative changes in the region of the right femoral artery with central thrombus and at least 70% narrowing just distal to the surgical site. [id number] disease of the deep femoral artery is at extends through the level of the thigh. No popliteal aneurysm. Right infrapopliteal arteries: There is an intact trifurcation on the right with small, wispy vessels. The peroneal artery does not definitively cross the level of the ankle. The small posterior and anterior tibial arteries do cross the level of the ankle on the right. Left iliac arteries: Mild moderate disease of the internal iliac on the left as well as the left common iliac artery. The left external iliac artery is better preserved. Left femoral/popliteal arteries: Multifocal mild disease of the deep femoral artery on the left as it transit through the leg. No popliteal aneurysm. Left infrapopliteal arteries: On the left, small wispy vessels are visualized distal to the intact trifurcation. The peroneal and anterior tibial artery cross the level of the ankle. The posterior tibial artery does not seem to cross the level of the ankle. Fatty stranding along the anterior aspect of the distal lower leg on the left. Portal Venous System: No mesenteric venous gas. Lungs: Consolidative changes in the lung bases right greater than left, incompletely visualized. Infiltrates not excluded and follow-up recommended. Heart: Cardiomegaly. Mediastinum: Tiny hiatal hernia. Liver: The entirety of the liver is not included in the field of view but what is seen is somewhat low in density suggesting fatty infiltration with arterial enhancement along the anterior margin of the right lobe possibly a few transient hepatic arterial defects. No portal venous gas. Gallbladder and bile ducts: Mildly distended gallbladder without stones. No choledocholithiasis. Pancreas: Pancreatic atrophy without pancreatic mass. Spleen: Normal. No splenomegaly. Adrenals: No adrenal mass. Kidneys and ureters: Renal volume loss bilaterally without obstructive stone or hydronephrosis. No solid mass. Stomach and bowel: The stomach is poorly distended. No bowel obstruction. Sigmoid diverticulosis without acute diverticulitis. No pneumatosis. Colonic wall thickening is less obvious than on the previous. Appendix: No evidence of appendicitis. Bladder: Unremarkable. No mass. Reproductive: Postoperative changes right groin. Fatty stranding in the right groin could be postoperative. Intraperitoneal space: No free air or free fluid. Lymph nodes: Small right lower quadrant nodes are stable. Bones/joints: Sternotomy wires. Fatty stranding anterior to the sternotomy wires may be postoperative. Degenerative changes without acute fracture. No lytic or blastic disease. Soft tissues: Diffuse muscular atrophy along the body wall. No soft tissue air. Other findings: Artifact from patient arm positioning and patient body habitus. IMPRESSION: 1. Atherosclerotic changes of the abdominal aorta with narrowing of the origins of the mesenteric and renal arteries as described. 2. No evidence of ischemic bowel. 3. Renal atrophy probably vascular in origin. 4. Diminished changes of the pancolitis described on the previous. 5. Lower extremity atherosclerotic disease most pronounced below the level of knees. 6. Consolidative changes in the lung bases and infiltrates cannot be excluded. Electronically signed by: Brian Angela On 10/12/2020 10:12:39 AM
--- NOTE | 2020-10-12 11:11 | IPNPDOC ---
Date Seen The patient was seen on 10/12/20. Progress Note SUBJECTIVE: Patient was seen examined at bedside this morning. She continues to have copious upper airway secretions, with cough. She states that she feels slightly nauseous today. She is having shortness of breath. She denies any pain of the lower extremities. OBJECTIVE PHYSICAL EXAMINATION: VITAL SIGNS: please see below General: NAD, comfortable HEENT: PERRLA, EOMI, sclerae clear Neck: supple, normal ROM, no JVD Respiratory: lungs CTAB, no wheeze, no rales, no crackles CVS: RRR, normal S1, S2, no murmurs Abdo: soft, no masses, no hepatosplenomegaly, BS+, no rebound tenderness Extremities: no edema, L DP palpable 2+. Right dorsalis pedis is not palpable by manual palpation. However using bedside Doppler both dorsalis pedis pulses are easily heard. MSK: Patient has an ulcer on the right ball of her foot. She also has small ulcers on the tips of her great toes. These are tender to palpation. There is a great amount of dry skin i.e. xerosis. Neuro: no focal neuro deficits, moving all 4 extremities, CN2-12 intact. Strength 5/5 in all 4 extremities. No nystagmus. Psych: calm, cooperative, AAO x 3 LABORATORY DATA, IMAGING STUDIES, MICROBIOLOGY: Please see below. Portable CXR 10/12/2020 IMPRESSION: Interval development of congestive heart failure/volume overload. R inguinal area US (10/11/20): IMPRESSION: No evidence of a mass such as a hematoma or seroma. Soft tissue edema. CTA abdominal aorta and bilateral lower extremities (10/12/20): FINDINGS: Aorta: Atherosclerotic changes of the thoracic aorta. There is overall [id number] atherosclerotic disease of the abdominal aorta without gross aneurysm or dissection. Celiac trunk and mesenteric arteries: Moderate to severe narrowing at the origin of the celiac axis. Moderate narrowing at the origin of the SMA. The ISMA origin demonstrates severe narrowing. Renal arteries: Diminutive renal arteries bilaterally with moderate to severe narrowing at the origins. Right iliac arteries: On the right, mild disease of the iliac arterial tree most pronounced in the internal iliac. Right femoral/popliteal arteries: Postoperative changes in the region of the right femoral artery with central thrombus and at least 70% narrowing just distal to the surgical site. Vado-[id number] disease of the deep femoral artery is at extends through the level of the thigh. No popliteal aneurysm. Right infrapopliteal arteries: There is an intact trifurcation on the right with small, wispy vessels. The peroneal artery does not definitively cross the level of the ankle. The small posterior and anterior tibial arteries do cross the level of the ankle on the right. Left iliac arteries: Mild moderate disease of the internal iliac on the left as well as the left common iliac artery. The left external iliac artery is better preserved. Left femoral/popliteal arteries: Multifocal mild disease of the deep femoral artery on the left as it transit through the leg. No popliteal aneurysm. Left infrapopliteal arteries: On the left, small wispy vessels are visualized distal to the intact trifurcation. The peroneal and anterior tibial artery cross the level of the ankle. The posterior tibial artery does not seem to cross the level of the ankle. Fatty stranding along the anterior aspect of the distal lower leg on the left. Portal Venous System: No mesenteric venous gas. Lungs: Consolidative changes in the lung bases right greater than left, incompletely visualized. Infiltrates not excluded and follow-up recommended. Heart: Cardiomegaly. Mediastinum: Tiny hiatal hernia. Liver: The entirety of the liver is not included in the field of view but what is seen is somewhat low in density suggesting fatty infiltration with arterial enhancement along the anterior margin of the right lobe possibly a few transient hepatic arterial defects. No portal venous gas. Gallbladder and bile ducts: Mildly distended gallbladder without stones. No choledocholithiasis. Pancreas: Pancreatic atrophy without pancreatic mass. Spleen: Normal. No splenomegaly. Adrenals: No adrenal mass. Kidneys and ureters: Renal volume loss bilaterally without obstructive stone or hydronephrosis. No solid mass. Stomach and bowel: The stomach is poorly distended. No bowel obstruction. Sigmoid diverticulosis without acute diverticulitis. No pneumatosis. Colonic wall thickening is less obvious than on the previous. Appendix: No evidence of appendicitis. Bladder: Unremarkable. No mass. Reproductive: Postoperative changes right groin. Fatty stranding in the right groin could be postoperative. Intraperitoneal space: No free air or free fluid. Lymph nodes: Small right lower quadrant nodes are stable. Bones/joints: Sternotomy wires. Fatty stranding anterior to the sternotomy wires may be postoperative. Degenerative changes without acute fracture. No lytic or blastic disease. Soft tissues: Diffuse muscular atrophy along the body wall. No soft tissue air. Other findings: Artifact from patient arm positioning and patient body habitus. IMPRESSION: 1. Atherosclerotic changes of the abdominal aorta with narrowing of the origins of the mesenteric and renal arteries as described. 2. No evidence of ischemic bowel. 3. Renal atrophy probably vascular in origin. 4. Diminished changes of the pancolitis described on the previous. 5. Lower extremity atherosclerotic disease most pronounced below the level of knees. 6. Consolidative changes in the lung bases and infiltrates cannot be excluded. DVT prophylaxis ordered?: Patient is on aspirin and Plavix. Receiving heparin 5000 units every 8. ASSESSMENT AND PLAN: 1-year-old female with a past medical history of ESRD on hemodialysis MWF, CAD status post stenting and CABG in July/2020, diastolic CHF, chronic left bundle branch block, type 2 diabetes, asthma, GERD, GI bleeding. Presents to the ER with symptoms of abdominal pain nausea vomiting and cough for the past week. She was en route to dialysis when she felt unwell and was brought to [facility] ER. Patient's last completed dialysis session was on 10/06/2020. Dr. Peters contacted the ER and recommended the patient be admitted for hemodialysis on 10/11/2020. Patient arrived on 4 L of oxygen which is an increase from her prior level of the home at [address] abdomen showed atelectasis or consolidation of the right lower lobe increased from prior as well as nonspecific pancolitis slightly increased from prior. Patient was also tested positive for enterovirus on respiratory viral panel. Patient did not have a leukocytosis or fever. Potassium was elevated at 5.7. BNP elevated at 3100. Creatinine 5.33. Patient will be admitted for hemodialysis. PROBLEMS: ESRD on HD (MWF) / Diastolic CHF - missed last 2 HD sessions - c/o SOB, baseline 2LPM, arrived on 4LPM, weaned down to 2L - CT abdo showed RLL atelectasis, possible effusion - Nephrology, Dr. Marcial consulted for HD, fluid level management. - c/w midodrine, as patient has labile BP during dialysis - d/w Dr. Marcial, given signs of pulmonary edema vs possible infiltrate, will perform HD today Questionable infiltrate in lungs, cough concern for PNA - start patient on empiric CAP therapy - start ceftriaxone and azithromycin - check sputum cultures. Hyponatremia - Na 129 - HD today. Nephrology following. Abdominal pain/nausea - likely 2/2 pancolitis, likely viral in etiology, another differential is mesenteric ischemia. Although the patient's lactic acid is normal and her pain is approximately 5 out of 10 which we would expect to be much higher in acute mesenteric ischemia, we will obtain a CT angiogram of the abdomen on 10/12/2020. - while there is mod to severe narrowing at origin of celiac trunk, moderate narrowing at origin of SMA and severe narrowing at origin of ISMA, there is no evidence for bowel ischemia. Pain remains mild to mod, and LA is wnl. - narrowing of renal arteries at origins bilaterally - no leukocytosis, no fever - will check GI panel - check procal Peripheral arterial disease -Patient has cirrhosis and weak pulses in the bilateral lower extremities. Pulses are audible with Doppler bilaterally--CTA abdominal aorta with runoff ordered for 10/12/2020 to evaluate for perfusion to the lower extremities. - Post op R femoral artery 70% narrowing distal to surgical site. - I discussed the concerns with Dr. Proctor who is reviewing images. He believes that the patient requires transfer back to [facility] where the patient received her CABG in July 2020. Arterial thrombosis of the right femoral artery is a surgical complication and while it showed a 70% occlusion at this time she is high risk for developing acute limb ischemia. - at this time, R foot is warm with audible DP by bedside doppler. -I spoke to the transfer center at [facility] this morning they currently do not have bed availability but hopefully expect some this evening. I left my contact information. We will tentatively plan for transfer to [facility] - started patient on heparin ggt, 15 units/kg/hr Right inguinal area wound remnant of prior surgery involving CABG in 07/28 Wound appears to be clean although per RN when they change the dressing it had a foul odor. Wound culture sent Dressings will be changed every 2 days and will involve Hydrofera Blue covered with foam dressing Discussed with Dr. Proctor. Recommends contacting Dr. Marshall after the long weekend to assist with wound healing Patient states she has no pain but the area is slightly indurated. We will obtain ultrasound of the right inguinal area to evaluate for seroma/hematoma. US showed no collection. History of diastolic CHF Patient is decompensated. She will receive hemodialysis today and 10/13/2019 CAD s/p stenting, CABG in 07/2020 - c/w ASA, Plavix, and Atorvastatin HTN - c/w Metoprolol - HD for fluid management, expect improvement in BP IDDM2 - Will c/w adjusted dose of long acting insulin and ISS Asthma - No evidence of exacerbation - c/w inhaled therapy as ordered Hypothyroidism - c/w Levothyroxine GERD/ history of GI bleed 2/2 ulcer in colon - c/w Omeprazole DVT prophylaxis -Heparin 5000 units subcutaneously every 8 hours. VS, I&O, 24H, Fishbone Vital Signs/I&O Vital Signs Date Time Temp Pulse Resp B/P (MAP) Pulse Ox O2 Delivery O2 Flow Rate FiO2 10/12/20 06:00 97.8 103 18 129/60 (83) 93 Nasal Cannula 2.0 I&O- Last 24 Hours up to 6 AM 10/12/20 06:00 Intake Total 600 ml Output Total 1800 ml Balance -1200 ml Laboratory Data 24H LABS Laboratory Tests 2 10/11/20 11:43: Immature Granulocyte % (Auto) 0.4, Neutrophils (%) (Auto) 88.6H, Lymphocytes (%) (Auto) 4.6L, Monocytes (%) (Auto) 5.2, Eosinophils (%) (Auto) 0.8, Basophils (%) (Auto) 0.4, Neutrophils # (Auto) 10.5H, Lymphocytes # (Auto) 0.5L, Monocytes # (Auto) 0.6, Eosinophils # (Auto) 0.1, Basophils # (Auto) 0.1, Nucleated Red Blood Cells % (auto) 0.0, Anion Gap 8, Glomerular Filtration Rate 31.8L, Lactic Acid Level 0.3L, Calcium Level 8.6L, Total Bilirubin 0.4, Aspartate Amino Transf (AST/SGOT) 27, Alanine Aminotransferase (ALT/SGPT) 25, Alkaline Phosphatase 127H, Total Protein 7.6, Albumin 3.4, Albumin/Globulin Ratio 0.8L 10/11/20 12:56: Bedside Glucose (Misc Panel) 74L 10/11/20 16:29: Bedside Glucose (Misc Panel) 107 10/11/20 20:15: Anion Gap 8, Glomerular Filtration Rate 17.2L, Calcium Level 8.2L 10/11/20 20:26: Bedside Glucose (Misc Panel) 105 10/12/20 05:58: Immature Granulocyte % (Auto) 0.4, Neutrophils (%) (Auto) 84.3H, Lymphocytes (%) (Auto) 8.1L, Monocytes (%) (Auto) 6.4, Eosinophils (%) (Auto) 0.3, Basophils (%) (Auto) 0.5, Neutrophils # (Auto) 8.5, Lymphocytes # (Auto) 0.8L, Monocytes # (Auto) 0.7, Eosinophils # (Auto) 0.0, Basophils # (Auto) 0.1, Nucleated Red Blood Cells % (auto) 0.0, Anion Gap 6L, Glomerular Filtration Rate 13.6L, Calcium Level 8.7L, Magnesium Level 2.1, Total Bilirubin 0.3, Aspartate Amino Transf (AST/SGOT) 35, Alanine Aminotransferase (ALT/SGPT) 26, Alkaline Phosphatase 122H, Total Protein 7.4, Albumin 3.0L, Albumin/Globulin Ratio 0.7L CBC/BMP Laboratory Tests 10/11/20 11:43 10/11/20 20:15 10/12/20 05:58 Microbiology Microbiology 10/11/20 Gram Stain - Final, Resulted 10/11/20 Wound Culture, Resulted Pending 10/10/20 Respiratory Virus Panel (PCR) ([facility]) - Final, Complete Human Rhinovirus/Enterovirus ANGELINA MURRAY MD Oct 12, 2020 11:11
[2020-10-12] MEDS ORDERED: DOXYCYCLINE HYCLATE 100 MG in D5W MINI-BAG PLUS 100 ML IV SCH (12:00)
--- NOTE | 2020-10-12 12:33 | REP ---
INDICATION: cough. COMPARISON: Portable chest, 10/10/2020. TECHNIQUE: Upright AP portable chest image was obtained. FINDINGS: There is been interval development of congestive heart failure/volume overload. There is cardiomegaly, pulmonary venous hypertension and pulmonary interstitial edema. There are bilateral pleural effusions. There is a large bore hemodialysis catheter via the right subclavian vein with the tip in the right atrium. Status post median sternotomy. IMPRESSION: Interval development of congestive heart failure/volume overload. <Electronically signed by Michoacano Rosales > 10/12/20 [id number]
[2020-10-12 14:00] VITALS: BP 119/62
--- NOTE | 2020-10-12 17:44 | IPN ---
NEPHROLOGY PROGRESS NOTE DATE: 10/12/2020 SUBJECTIVE: Mrs. Duran is seen this morning at her bedside. She is quite short of breath. She had a portable chest x-ray done which I have reviewed myself. It did show bilateral infiltrates and pulmonary vascular congestion. The patient was dialyzed yesterday, however we could not remove any significant amount of fluid due to hypotension. Only 1.8 liters fluid could be removed. The patient also had a CT angiogram done yesterday which showed improved colitis, atherosclerotic changes of the abdominal aorta with a narrowing of the origin of the mesenteric renal arteries. Renal atrophy, probably vascular in origin, lower extremity atherosclerotic disease, most pronounced below the level of the knees. Consolidated changes in the lung bases and infiltrates were noted. OBJECTIVE: PHYSICAL EXAMINATION: VITAL SIGNS: Temperature 97.8 degrees Fahrenheit, heart rate 103 per minute, respiratory rate 20 per minute, blood pressure 129/60 mm of mercury and oxygen saturation 93% on 2 liters oxygen. HEENT: Head is atraumatic. NECK: Supple and JVD is mildly elevated. HEART: Tachycardic. LUNGS: Bilateral rhonchi and rales. She has diminished breath sounds at the bases. ABDOMEN: Soft and nontender and bowel sounds are normal. EXTREMITIES: Without any cyanosis or clubbing. She has a permacath present in the right upper chest. LABORATORY STUDIES: Today's labs show a white blood cell count of 10.1, hemoglobin 11.2 and hematocrit 38.3, platelet count 331. Sodium 129, potassium 4.8, CO2 24, BUN 17 and creatinine 3.52, glucose 96 and calcium 8.7. PROBLEMS: 1. Shortness of breath most likely this is related to bilateral pulmonary infiltrate and vascular congestion. I am going to dialyze her and we will ultrafiltrate another 2 liters of fluid today as tolerated. She can probably be dialyzed more frequently as she does not tolerate excessive amounts of fluid removal. We will reevaluate her again tomorrow for further dialysis. 2. Hyponatremia this is most likely related to congestive heart failure and end-stage renal disease. Hyponatremia will improve with fluid removal and further dialysis. 3. Anemia her anemia is stable and no intervention is needed at present. 4. Pulmonary infiltrates - The patient is now being treated with Doxycycline. 5. Hypotension she does get hypotensive during dialysis most frequently. She has been on Midodrine 10 mg three times daily and I would recommend to continue it, particularly before dialysis. 6. Peripheral vascular disease she does have vascular disease, particularly below the knees, however also in the right femoral artery. Hospitalist Service is consulting with Vascular Surgery.
--- NOTE | 2020-10-12 18:31 | DS.PDOC ---
Discharge Summary General Date of Admission Oct 11, 2020 at 00:03 Date of Discharge 10/12/20 Discharge Summary PROCEDURES PERFORMED DURING STAY: [None]. ADMITTING DIAGNOSES: fluid overload 2/2 decompensated CHF and missed HD abdominal pain hx of CAD s/p stenting Non healed R inguinal wound IDDM2 HTN Asthma PAD Hypothyroidism GERD Hx of GIB DISCHARGE DIAGNOSES: fluid overload 2/2 decompensated CHF and missed HD abdominal pain hx of CAD s/p stenting Non healed R inguinal wound IDDM2 HTN Asthma PAD Hypothyroidism GERD Hx of GIB COMPLICATIONS/CHIEF COMPLAINT: Enteroviral Infection, Fluid Overload, Sob. HISTORY OF PRESENT ILLNESS: 70-year-old female with a past medical history of ESRD on hemodialysis MWF, CAD status post stenting and CABG in July/2020, diastolic CHF, chronic left bundle branch block, type 2 diabetes, asthma, GERD, GI bleeding. Presents to the ER with symptoms of abdominal pain nausea vomiting and cough for the past week. She was en route to dialysis when she felt unwell and was brought to [facility] ER. Patient's last completed dialysis session was on 10/06/2020. Dr. Peters contacted the ER and recommended the patient be admitted for hemodialysis on 10/11/2020. Patient arrived on 4 L of oxygen which is an increase from her prior level of the home at [address] abdomen showed atelectasis or consolidation of the right lower lobe increased from prior as well as nonspecific pancolitis slightly increased from prior. Patient was also tested positive for enterovirus on respiratory viral panel. Patient did not have a leukocytosis or fever. Potassium was elevated at 5.7. BNP elevated at 3100. Creatinine 5.33. Patient will be admitted for hemodialysis.. HOSPITAL COURSE: ESRD on HD (MWF) / Diastolic CHF - missed last 2 HD sessions - c/o SOB, baseline 2LPM, arrived on 4LPM, weaned down to 2L - CT abdo showed RLL atelectasis, possible effusion - Nephrology, Dr. Marcial consulted for HD, fluid level management. - c/w midodrine, as patient has labile BP during dialysis - d/w Dr. Marcial, given signs of pulmonary edema vs possible infiltrate, will perform HD today Questionable infiltrate in lungs, cough concern for PNA - start patient on empiric CAP therapy - start ceftriaxone and azithromycin - check sputum cultures. Hyponatremia - Na 129 - HD today. Nephrology following. Abdominal pain/nausea - likely 2/2 pancolitis, likely viral in etiology, another differential is mesenteric ischemia. Although the patient's lactic acid is normal and her pain is approximately 5 out of 10 which we would expect to be much higher in acute mesenteric ischemia, we will obtain a CT angiogram of the abdomen on 10/12/2020. - while there is mod to severe narrowing at origin of celiac trunk, moderate narrowing at origin of SMA and severe narrowing at origin of ISMA, there is no evidence for bowel ischemia. Pain remains mild to mod, and LA is wnl. - narrowing of renal arteries at origins bilaterally - no leukocytosis, no fever - will check GI panel - check procal Peripheral arterial disease -Patient has cirrhosis and weak pulses in the bilateral lower extremities. P ulses are audible with Doppler bilaterally--CTA abdominal aorta with runoff ordered for 10/12/2020 to evaluate for perfusion to the lower extremities. - Post op R femoral artery 70% narrowing distal to surgical site. - I discussed the concerns with Dr. Proctor who is reviewing images. He believes that the patient requires transfer back to [facility] where the patient received her CABG in July 2020. Arterial thrombosis of the right femoral artery is a surgical complication and while it showed a 70% occlusion at this time she is high risk for developing acute limb ischemia. -I spoke to the transfer center at [facility] this morning they currently do not have bed availability but hopefully expect some this evening. I left my contact information. We will tentatively plan for transfer to [facility]. Right inguinal area wound remnant of prior surgery involving CABG in 07/28 Wound appears to be clean although per RN when they change the dressing it had a foul odor. Wound culture sent Dressings will be changed every 2 days and will involve Hydrofera Blue covered with foam dressing Discussed with Dr. Proctor. Recommends contacting Dr. Marshall after the long weekend to assist with wound healing Patient states she has no pain but the area is slightly indurated. We will obtain ultrasound of the right inguinal area to evaluate for seroma/hematoma. US showed no collection. acute CHF exacerbation Patient is decompensated. BNP 3100. Requires 2L She will receive hemodialysis today 10/13/2019 CAD s/p stenting, CABG in 07/2020 - c/w ASA, Plavix, and Atorvastatin HTN - c/w Metoprolol - HD for fluid management, expect improvement in BP IDDM2 - Will c/w adjusted dose of long acting insulin and ISS Asthma - No evidence of exacerbation - c/w inhaled therapy as ordered Hypothyroidism - c/w Levothyroxine GERD/ history of GI bleed 2/2 ulcer in colon - c/w Omeprazole DVT prophylaxis -Heparin 5000 units subcutaneously every 8 hours. DISCHARGE MEDICATIONS: Please see below. ALLERGIES: Please see below. PHYSICAL EXAMINATION ON DISCHARGE: VITAL SIGNS: please see below General: NAD, comfortable HEENT: PERRLA, EOMI, sclerae clear Neck: supple, normal ROM, no JVD Respiratory: lungs CTAB, no wheeze, no rales, no crackles CVS: RRR, normal S1, S2, no murmurs Abdo: soft, no masses, no hepatosplenomegaly, BS+, no rebound tenderness Extremities: no edema, L DP palpable 2+. Right dorsalis pedis is not palpable by manual palpation. However using bedside Doppler both dorsalis pedis pulses are easily heard. MSK: Patient has an ulcer on the right ball of her foot. She also has small ulcers on the tips of her great toes. These are tender to palpation. There is a great amount of dry skin i.e. xerosis. Neuro: no focal neuro deficits, moving all 4 extremities, CN2-12 intact. Strength 5/5 in all 4 extremities. No nystagmus. Psych: calm, cooperative, AAO x 3 LABORATORY DATA: Please see below. IMAGING: Portable CXR 10/12/2020 IMPRESSION: Interval development of congestive heart failure/volume overload. R inguinal area US (10/11/20): IMPRESSION: No evidence of a mass such as a hematoma or seroma. Soft tissue edema. CTA abdominal aorta and bilateral lower extremities (10/12/20): FINDINGS: Aorta: Atherosclerotic changes of the thoracic aorta. There is overall [id number] atherosclerotic disease of the abdominal aorta without gross aneurysm or dissection. Celiac trunk and mesenteric arteries: Moderate to severe narrowing at the origin of the celiac axis. Moderate narrowing at the origin of the SMA. The ISMA origin demonstrates severe narrowing. Renal arteries: Diminutive renal arteries bilaterally with moderate to severe narrowing at the origins. Right iliac arteries: On the right, mild disease of the iliac arterial tree most pronounced in the internal iliac. Right femoral/popliteal arteries: Postoperative changes in the region of the right femoral artery with central thrombus and at least 70% narrowing just distal to the surgical site. Jsbn-ar-[id number] disease of the deep femoral artery is at extends through the level of the thigh. No popliteal aneurysm. Right infrapopliteal arteries: There is an intact trifurcation on the right with small, wispy vessels. The peroneal artery does not definitively cross the level of the ankle. The small posterior and anterior tibial arteries do cross the level of the ankle on the right. Left iliac arteries: Mild moderate disease of the internal iliac on the left as well as the left common iliac artery. The left external iliac artery is better preserved. Left femoral/popliteal arteries: Multifocal mild disease of the deep femoral artery on the left as it transit through the leg. No popliteal aneurysm. Left infrapopliteal arteries: On the left, small wispy vessels are visualized distal to the intact trifurcation. The peroneal and anterior tibial artery cross the level of the ankle. The posterior tibial artery does not seem to cross the level of the ankle. Fatty stranding along the anterior aspect of the distal lower leg on the left. Portal Venous System: No mesenteric venous gas. Lungs: Consolidative changes in the lung bases right greater than left, incompletely visualized. Infiltrates not excluded and follow-up recommended. Heart: Cardiomegaly. Mediastinum: Tiny hiatal hernia. Liver: The entirety of the liver is not included in the field of view but what is seen is somewhat low in density suggesting fatty infiltration with arterial enhancement along the anterior margin of the right lobe possibly a few transient hepatic arterial defects. No portal venous gas. Gallbladder and bile ducts: Mildly distended gallbladder without stones. No choledocholithiasis. Pancreas: Pancreatic atrophy without pancreatic mass. Spleen: Normal. No splenomegaly. Adrenals: No adrenal mass. Kidneys and ureters: Renal volume loss bilaterally without obstructive stone or hydronephrosis. No solid mass. Stomach and bowel: The stomach is poorly distended. No bowel obstruction. Sigmoid diverticulosis without acute diverticulitis. No pneumatosis. Colonic wall thickening is less obvious than on the previous. Appendix: No evidence of appendicitis. Bladder: Unremarkable. No mass. Reproductive: Postoperative changes right groin. Fatty stranding in the right groin could be postoperative. Intraperitoneal space: No free air or free fluid. Lymph nodes: Small right lower quadrant nodes are stable. Bones/joints: Sternotomy wires. Fatty stranding anterior to the sternotomy wires may be postoperative. Degenerative changes without acute fracture. No lytic or blastic disease. Soft tissues: Diffuse muscular atrophy along the body wall. No soft tissue air. Other findings: Artifact from patient arm positioning and patient body habitus. IMPRESSION: 1. Atherosclerotic changes of the abdominal aorta with narrowing of the origins of the mesenteric and renal arteries as described. 2. No evidence of ischemic bowel. 3. Renal atrophy probably vascular in origin. 4. Diminished changes of the pancolitis described on the previous. 5. Lower extremity atherosclerotic disease most pronounced below the level of knees. 6. Consolidative changes in the lung bases and infiltrates cannot be excluded. CT abdomen pelvis with IV contrast on 10/10/2020 IMPRESSION: 1. Near complete atelectasis or consolidation of the right lower lobe which is increased since 08/01/2020. Mild left base fibro-atelectatic change is similar and there are trace bilateral pleural effusions which are probably similar. 2. Mild bilateral renal atrophy. 3. Minimal nonspecific pancolitis which is slightly increased since the prior study. 4. Colonic diverticulosis without diverticulitis. 5. Pancreatic atrophy for age. CXR on 10/10/2020 IMPRESSION: Mild cardiomegaly. Elevated right hemidiaphragm. Pleuroparenchymal fibrosis left mid lung field. No acute infiltrate seen. PROGNOSIS: good ACTIVITY: [As tolerated]. DIET: renal DISCHARGE PLAN: transfer to [facility] for vascular surgery eval. DISPOSITION: transfer to [facility] DISCHARGE CONDITION: [Stable]. TIME SPENT ON DISCHARGE: 35 minutes Vital Signs/I&Os Vital Signs Date Time Temp Pulse Resp B/P (MAP) Pulse Ox O2 Delivery O2 Flow Rate FiO2 10/12/20 14:00 97.6 90 19 119/62 (81) 100 Nasal Cannula 2.0 I&O- Last 24 Hours up to 6 AM 10/12/20 06:00 Intake Total 600 ml Output Total 1800 ml Balance -1200 ml Laboratory Data Labs 24H Laboratory Tests 2 10/11/20 20:15: Anion Gap 8, Glomerular Filtration Rate 17.2L, Calcium Level 8.2L 10/11/20 20:26: Bedside Glucose (Misc Panel) 105 10/12/20 05:58: Anion Gap 6L, Glomerular Filtration Rate 13.6L, Calcium Level 8.7L, Immature Granulocyte % (Auto) 0.4, Neutrophils (%) (Auto) 84.3H, Lymphocytes (%) (Auto) 8.1L, Monocytes (%) (Auto) 6.4, Eosinophils (%) (Auto) 0.3, Basophils (%) (Auto) 0.5, Neutrophils # (Auto) 8.5, Lymphocytes # (Auto) 0.8L, Monocytes # (Auto) 0.7, Eosinophils # (Auto) 0.0, Basophils # (Auto) 0.1, Nucleated Red Blood Cells % (auto) 0.0, Magnesium Level 2.1, Total Bilirubin 0.3, Aspartate Amino Transf (AST/SGOT) 35, Alanine Aminotransferase (ALT/SGPT) 26, Alkaline Phosphatase 122H, Total Protein 7.4, Albumin 3.0L, Albumin/Globulin Ratio 0.7L 10/12/20 11:16: Bedside Glucose (Misc Panel) 106 10/12/20 16:42: Bedside Glucose (Misc Panel) 111H CBC/BMP Laboratory Tests 10/11/20 20:15 10/12/20 05:58 FSBS Laboratory Tests Test 10/11/20 20:26 10/12/20 11:16 10/12/20 16:42 Range/Units Bedside Glucose (Misc Panel) 105 106 111 83-110 MG/DL Microbiology Microbiology 10/11/20 Gram Stain - Final, Resulted 10/11/20 Wound Culture, Resulted Pending 10/10/20 Respiratory Virus Panel (PCR) (NAWAF) - Final, Complete Human Rhinovirus/Enterovirus Discharge Medications Scheduled Albuterol Sulf (Albuterol Sulfate) 2.5 Mg/3 Ml Vial.neb, 2.5 MG INH QID, (Reported) Aspirin (Aspirin EC) 81 Mg Tab, 81 MG PO DAILY, (Reported) Atorvastatin Calcium (Atorvastatin Calcium) 40 Mg Tab, 40 MG PO QHS, (Reported) Budesonide/Formoterol (Symbicort 160-4.5 Mcg Inhaler) 6 Gm Hfa.aer.ad, 2 PUFF INH BID, (Reported) Calcitriol (Calcitriol) 0.25 Mcg Cap, 0.25 MCG PO DAILY, (Reported) Clopidogrel Bisulfate (Clopidogrel) 75 Mg Tablet, 75 MG PO DAILY, (Reported) Insulin Glargine (Lantus) 100 Unit/1 Ml Vial, 10 UNITS SC DAILY, (Reported) Insulin Human Lispro (Novolog) 100 Unit/1 Ml Vial, 0 SC AC, (Reported) SLIDING SCALE; IF 151-200=2 UNITS, 201-250=4 UNITS, 251-300=6 UNITS, 301- 350=8 UNITS, 351-400=10 UNITS, 401-450=12 UNITS, FOR DIABETES LESS THAN 70 OR GREATER THAN 400 CALL MD Bedoya/Nikolai/Renettabif/SKittytherm (Bacid Caplet) 1 Each Tablet, 1 TAB PO BID, (Re ported) Levothyroxine Sodium (Levothyroxine Sodium) 125 Mcg Tablet, 125 MCG PO QAM, (Reported) Midodrine HCl (Midodrine HCl) 10 Mg Tablet, 10 MG PO TID, (Reported) Pantoprazole Sodium (Pantoprazole Sodium) 40 Mg Tablet.dr, 40 MG PO DAILY, (Reported) Scheduled PRN Acetaminophen (Tylenol) 325 Mg Tablet, 650 MG PO Q6HP PRN for PAIN OR FEVER, (Reported) Albuterol Sulfate (Ventolin Hfa) 108 Mcg/Act Aer, 2 PUFFS INH Q4H PRN for SHORTNESS OF BREATH, (Reported) Nitroglycerin (Nitrostat) 0.4 Mg Subl, 0.4 MG SL Q5MP PRN for CHEST PAIN, (Reported) Allergies Coded Allergies: cephalexin (Verified Allergy, Severe, RASH, DYSPNEA, 11/05/19) gatifloxacin (Verified Allergy, Severe, RASH, DYSPNEA, 11/05/19) tramadol (Verified Allergy, Severe, RASH, DYSPNEA, 11/05/19) silver nitrate (Verified Allergy, Intermediate, HIVES, RASH, 11/05/19) chlorhexidine (Verified Allergy, Mild, RASH, 11/05/19) latex (Verified Allergy, Mild, RED, SWOLLEN, RASH, 11/05/19) nitrofurantoin (Verified Allergy, Mild, RASH, 11/05/19) sulfamethoxazole (Verified Adverse Reaction, Intermediate, EFFECTS KIDNEY FUNCTION, 11/05/19) trimethoprim (Verified Adverse Reaction, Intermediate, EFFECTS KIDNEY FUNCTION, 11/05/19) ANGELINA MURRAY MD Oct 12, 2020 18:31
[2020-10-12] MEDS ORDERED: HEPARIN DRIP 25,000 UNITS in IV 1 EA IV SCH (19:00)
[2020-10-12] MEDS ORDERED: HEPARIN SOD (PORCINE) 5000UNITS/ML 1ML VIAL/SYRINGE IV PRN (19:00)
--- NOTE | 2020-10-13 16:31 | ECGEPIP ---
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
== END 2020-10-12 21:30 | disposition short-term general hospital (02) | DRG 291 ==
LOC: EDBD 13:51 → M ED 13:51 → M MSPAV 10-11 00:03
PROVIDERS: ADMIT Family Medicine; ATTEND Family Medicine
PROC: 5A1D70Z Performance of Urinary Filtration, Intermittent, Less than 6 Hours Per Day (ICD-10-PCS; principal; 2020-10-11)
DX: I13.2 Hypertensive heart and chronic kidney disease with heart failure and with stage 5 chronic kidney disease, or end stage renal disease (principal); N18.6 End stage renal disease; I50.31 Acute diastolic (congestive) heart failure; E87.1 Hypo-osmolality and hyponatremia; E11.51 Type 2 diabetes mellitus with diabetic peripheral angiopathy without gangrene; J45.909 Unspecified asthma, uncomplicated; E03.9 Hypothyroidism, unspecified; K21.9 Gastro-esophageal reflux disease without esophagitis; I25.10 Atherosclerotic heart disease of native coronary artery without angina pectoris; Z95.2 Presence of prosthetic heart valve; Z91.15 Patient's noncompliance with renal dialysis; Z95.1 Presence of aortocoronary bypass graft; I44.7 Left bundle-branch block, unspecified; K57.30 Diverticulosis of large intestine without perforation or abscess without bleeding; Z79.82 Long term (current) use of aspirin; Z79.899 Other long term (current) drug therapy; Z88.8 Allergy status to other drugs, medicaments and biological substances; Z88.2 Allergy status to sulfonamides; Z91.040 Latex allergy status; I95.9 Hypotension, unspecified

== ENCOUNTER 2020-10-20 22:07 | Inpatient (IN) | payer MEDICARE ==
[~2020-10-20] VITALS: Ht 142.2 cm; Wt 74.5 kg
[~2020-10-20 22:07] MED LIST changes: +ACET-907 PO; +ALBU83IN INH; +BACITAB PO; +INSUH10VL SC; +INSULANT SC; +MIDO10TA PO; +PANT40TA29 PO; +PROT1TAB2 PO
--- NOTE | 2020-10-21 00:02 | REPVR ---
PROCEDURE INFORMATION: Exam: XR Chest Exam date and time: 10/20/2020 11:01 PM Age: 70 years old Clinical indication: Cough and dyspnea; Additional info: Dyspnea/cough TECHNIQUE: Imaging protocol: XR of the chest. Views: 1 view. COMPARISON: CR PORTABLE CHEST X-RAY 10/12/2020 10:24 AM FINDINGS: Lungs: Decreased level of lung inflation. Patchy opacities in both lungs are probably similar given differences in degree of lung inflation. Pleural spaces: No pneumothorax. Blunted costophrenic angles suggest likely small pleural effusions Heart/Mediastinum: No mediastinal enlargement. Prior coronary bypass changes. No change in large caliber right subclavian vascular catheter. Bones/joints: Asymmetric degenerative changes in the left glenohumeral joint. IMPRESSION: Hypoinflated lungs with patchy bilateral lung opacities which may represent infiltrates, with underlying pleural effusions, overall similar in extent given differences in degree of lung inflation Electronically signed by: Damion Gillespie On 10/21/2020 00:02:27 AM
[2020-10-21 00:14] LABS: BASO # 0.1 10^3/uL (0.0-0.2); BASO % 0.4 % (0.0-1.0); EOS # 0.1 10^3/uL (0.0-0.5); EOS % 0.8 % (0.0-3.0); HEMATOCRIT 40.7 % (36.0-47.0); HEMOGLOBIN 12.2 g/dl (12.0-15.5); LYMPH # 0.7 10^3/uL (1.5-5.0); LYMPH % 4.2 % (24.0-44.0); MEAN CORPUSCULAR HEMOGLOBIN 29.3 pg (27.0-33.0); MEAN CORPUSCULAR VOLUME 97.8 fl (80.0-96.0); MONO # 0.8 10^3/uL (0.0-0.8); NEUTROPHILS # 13.9 10^3/uL (1.5-8.5); NEUTROPHILS % 88.6 % (36.0-66.0); PLATELET COUNT, AUTOMATED 410 10^3/uL (150-450); RED BLOOD COUNT 4.16 10^6/uL (4.00-5.40); WHITE BLOOD COUNT 15.7 10^3/uL (4.0-10.0)
[2020-10-21 00:39] LABS: ALBUMIN 3.3 GM/DL (3.2-5.2); ALT/SGPT 36 U/L (12-78); BILIRUBIN,DIRECT < 0.1 MG/DL (0.0-0.2); BILIRUBIN,TOTAL 0.4 MG/DL (0.2-1.0); BLOOD UREA NITROGEN 15 MG/DL (7-18); CALCIUM LEVEL 9.5 MG/DL (8.8-10.2); CARBON DIOXIDE LEVEL 28 MEQ/L (21-32); CHLORIDE LEVEL 97 MEQ/L (98-107); CK-MB VALUE MASS 2.3 NG/ML (<3.6); CPK CREATINE PHOSPHOKINASE 60 U/L (26-192); GLUCOSE, FASTING 134 MG/DL (70-100); MB/CK RELATIVE INDEX 3.83 (< OR =4); NT-PRO BNP 1900 PG/ML (<125); POTASSIUM SERUM 5.3 MEQ/L (3.5-5.1); SODIUM LEVEL 132 MEQ/L (136-145); TOTAL PROTEIN 7.3 GM/DL (6.4-8.2); TROPONIN I < 0.02 NG/ML (< 0.10)
[2020-10-21] MEDS ORDERED: FUROSEMIDE 40MG/4ML VIAL (J1940) IV SCH (04:00)
[2020-10-21] MEDS ORDERED: MAALOX 30 ML SUSP *UDC PO PRN (04:20)
[2020-10-21] MEDS ORDERED: ACETAMINOPHEN TAB 650MG DOSE (2X325MG) PO PRN (04:20)
[2020-10-21] MEDS ORDERED: GLUCOSE 4GM CHEW TABLET PO PRN (04:20)
[2020-10-21] MEDS ORDERED: GLUCAGON INJ 1MG VIAL SC PRN (04:20)
[2020-10-21] MEDS ORDERED: MOM 30ML SUSPENSION UDC PO PRN (04:20)
[2020-10-21] MEDS ORDERED: DEXTROSE 50% 50 ML SYRINGE IV PRN (04:20)
--- NOTE | 2020-10-21 04:25 | HPEPDOC ---
[facility] Medical History & Physical Date of Admission Oct 21, 2020 Date of Service: Oct 21, 2020 Primary Care Physician: Coco Trotter Attending Physician: ADDIE FISH MD History and Physical TIME OF SERVICE: 439am CHIEF COMPLAINT: cough HISTORY OF PRESENT ILLNESS: For about 3 weeks , a 70 yr old F, has had a dry cough. The patient is at [facility] for rehab and reports being seen by a doctor there but she doesnt think she was given any medications for her cough; per the patient was on abx but didnt improve despite the abx. Ms. Duran also reported feeling more short of breath when she tries to walk up the stairs and feeling like she is choking if she tries to lie down flat on her back without a pillow behind her head. She has been using her inhalers more often and thinks that this might help her cough and shortness of breath. denied having f/c, denied chest pain, denied feeling like her legs were swollen, denied feeling like she was wheezing & denied drinking more fluids than usual recently. After dialysis yesterday she was sent to the ER for evaluation. She added that she was told that she will receive dialysis 2 days in a row. REVIEW OF SYSTEMS: 10-point review of systems negative except as listed in HPI PAST MEDICAL HISTORY: ESRD MWF via perm a cath right AV fistula failed, Chronic CAD status post stenting, recent CABG in July/2020, Chronic HFpEF (grade 1), Group 3 vs Group 2 Pulm HTN (PASP 33 ), IDDM, Chronic Asthma, GERD, Hypothyroidism, Diverticulosis/ hx of GI bleed, DIXON, PVD, Appendectomy, Cataract surgery, Carpal tunnel surgery, Tonsillectomy, , D&C Left ankle fracture repair FAMILY HISTORY: Patient's mother had a COPD SOCIAL HISTORY: Patient denies smoking, etoh use or recreational drug use ALLERGIES: Please see below. HOME MEDICATIONS: Please see below. PHYSICAL EXAMINATION: VITAL SIGNS: uable to obtain peak flow reading because she is too short of breath Vital Signs Date Time Temp Pulse Resp B/P (MAP) Pulse Ox O2 Delivery O2 Flow Rate FiO2 10/20/20 22:08 96.5 84 28 112/57 (75) 100 Nasal Cannula 10/21/20 00:22 4.0 GENERAL APPEARANCE: well-nourished and developed/ NAD HEENT: EOMI / MMM&P / NC in place / neck short with excessive subcutaneous tissue, therefore I am not unable to asses for JVP CARDIOVASCULAR: RRR/NMRG / she doesnt have BLE edema LUNGS: she is unable to speak more than a few words without having to stop and take a breath / she is using her accessory muscles / she has inspiratory crackles all the way to the apices of her lungs along with expiratory wheezing ABDOMEN: contour convex / soft & NT w palpation MUSCULOSKELETAL: she has a perm a cath at the right upper chest / NCAT / JAISON x 4 extremities INTEGUMENT: not cyanotic, flushed or pale NEUROLOGICAL: CN 2-12 grossly intact / speech not dysarthric PSYCHIATRIC: A&O / able to understand and follow all commands LABORATORY DATA: Laboratory Tests 10/20/20 23:41 IMAGING: Chest xray IMPRESSION: Hypoinflated lungs with patchy bilateral lung opacities which may represent infiltrates, with underlying pleural effusions, overall similar in extent given differences in degree of lung inflation. MICROBIOLOGY: Respiratory panel neg ASSESSMENT: is a 70 yr old w ESRD, Chronic CAD / CABG, Chronic HFpEF, Pulm HTN, IDDM, Chronic Asthma, hx of GI bleed, DIXON & PVD who is admitted for evaluation of dyspnea likely due to a combination of fluid overload and acute Asthma. PLAN: 1 Dyspnea and cough 2/2 fluid overload & acute Asthma Plan: admit to medical floor / dialysis and diuretics 2 ESRD Plan: consult Nephro for dialysis / resume home meds once they are reconciled 3 Acute on chronic HFpEF Plan; f/u Is and Os / daily weights / renal diet w fluid restriction/ IV Lasix w hold parameters 4 Acute Asthma Plan: pulse ox / O2 / Mag sulfate & Solumedrol now & switch to PO prednisone in the morning/ Albuterol q1H PRN / Duonebs Q6H / monitor peak expiratory flow readings (based on her age and height her peak flow should be approximately 375) 5 Chronic CAD status post stenting / CABG Plan: resume home meds once they are reconciled 6 IDDM Plan: consistent carbs / f/u accuchecks / hypoglycemia protocol / sliding scale insulin / f/u A1C / resume long acting insulin once home meds have been reconciled 7 Hypothyroidism Plan: levothyroxine 8 Hypotension Plan: resume midodrine once meds have been reconciled 9 Class 3 obesity Complicates care DVT px w Heparin Dispo: back to [facility] after at least 2 midnights stay / PFS consult has been placed Home Medications Scheduled Aspirin (Aspirin EC) 81 Mg Tab, 81 MG PO DAILY Atorvastatin Calcium (Atorvastatin Calcium) 40 Mg Tab, 40 MG PO QHS Budesonide/Formoterol (Symbicort 160-4.5 Mcg Inhaler) 6 Gm Hfa.aer.ad, 2 PUFF INH BID Calcitriol (Calcitriol) 0.25 Mcg Cap, 0.25 MCG PO DAILY Clopidogrel Bisulfate (Clopidogrel) 75 Mg Tablet, 75 MG PO DAILY Insulin Lispro (Insulin Lispro) 100 Unit/1 Ml Vial, 1 DOSE SC AC SLIDING SCALE: 151-200 GIVE 2 UNITS 201-250 GIVE 4 UNITS 251-300 GIVE 6 UNITS 301-350 GIVE 8 UNITS 351-400 GIVE 10 UNITS 401-450 GIVE 12 UNITS L.acidoph/L.bulg/B.bif/S.therm (Bacid Caplet) 1 Each Tablet, 1 TAB PO BID Levothyroxine Sodium (Levothyroxine Sodium) 125 Mcg Tablet, 125 MCG PO DAILY Metoprolol Tartrate (Metoprolol Tartrate) 25 Mg Tablet, 25 MG PO TID Midodrine HCl (Midodrine HCl) 10 Mg Tablet, 10 MG PO TID Vancomycin Hcl (Vancomycin HCl) 125 Mg Capsule, 125 MG PO QID END DATE 10/25/20 Scheduled PRN Acetaminophen (Tylenol) 325 Mg Tablet, 650 MG PO Q6HP PRN for PAIN LEVEL 1-5 Albuterol Sulfate (Ventolin Hfa) 108 Mcg/Act Aer, 2 PUFFS INH Q4H PRN for SHORTNESS OF BREATH Guaifenesin (Guaifenesin) 100 Mg/5 Ml Liquid, 100 MG PO Q4H PRN for CONGESTION Nitroglycerin (Nitrostat) 0.4 Mg Subl, 0.4 MG SL NITRO PRN for CHEST PAIN Allergies Coded Allergies: cephalexin (Verified Allergy, Severe, RASH, DYSPNEA, 11/05/19) gatifloxacin (Verified Allergy, Severe, RASH, DYSPNEA, 11/05/19) tramadol (Verified Allergy, Severe, RASH, DYSPNEA, 11/05/19) silver nitrate (Verified Allergy, Intermediate, HIVES, RASH, 11/05/19) chlorhexidine (Verified Allergy, Mild, RASH, 11/05/19) latex (Verified Allergy, Mild, RED, SWOLLEN, RASH, 11/05/19) nitrofurantoin (Verified Allergy, Mild, RASH, 11/05/19) sulfamethoxazole (Verified Adverse Reaction, Intermediate, EFFECTS KIDNEY FUNCTION, 11/05/19) trimethoprim (Verified Adverse Reaction, Intermediate, EFFECTS KIDNEY FUNCTION, 11/05/19) A-FIB/CHADSVASC A-FIB History Current/History of A-Fib/PAF?: No Current PO Anticoag Therapy: No ADDIE FISH MD Oct 21, 2020 04:25
[2020-10-21] MEDS ORDERED: MAG SULF 1GM/100ML (MAG RUN) 1 GM in IV 1 EA IV ONE (05:25)
[2020-10-21] MEDS ORDERED: ALBUTEROL SULFATE 2.5 MG/0.5 ML INH NEB SOLN NEB PRN (05:25)
[2020-10-21] MEDS ORDERED: methylPREDNISolone 125MG 2ML VIAL IV STA (05:25)
[2020-10-21 06:35] LABS: HEMATOCRIT 35.5 % (36.0-47.0); HEMOGLOBIN 10.7 g/dl (12.0-15.5); MEAN CORPUSCULAR HEMOGLOBIN 29.6 pg (27.0-33.0); MEAN CORPUSCULAR HGB CONC 30.1 g/dl (32.0-36.5); MEAN CORPUSCULAR VOLUME 98.1 fl (80.0-96.0); PLATELET COUNT, AUTOMATED 374 10^3/uL (150-450); RED BLOOD COUNT 3.62 10^6/uL (4.00-5.40); WHITE BLOOD COUNT 14.9 10^3/uL (4.0-10.0)
[2020-10-21 06:46] LABS: CALCIUM LEVEL 9.3 MG/DL (8.8-10.2); CREATININE FOR GFR 3.22 MG/DL (0.55-1.30); GLOMERULAR FILTRATION RATE 15.1 (>39); POTASSIUM SERUM 4.5 MEQ/L (3.5-5.1)
[2020-10-21 06:47] LABS: HEMOGLOBIN A1c 6.1 %
[2020-10-21] MEDS ORDERED: METO1TAB87 PO (06:57)
[2020-10-21] MEDS ORDERED: GUAI100S51 PO (06:57)
[2020-10-21] MEDS ORDERED: VANC125C3 PO (06:57)
[2020-10-21 08:00] VITALS: BP 103/54
[2020-10-21] MEDS ORDERED: IPRATROPIUM 0.5MG/ALBUTEROL 2.5MG INH SOL UD 3ML (DUONEB) NEB SCH (08:00)
[2020-10-21] MEDS ORDERED: guaiFENesin SYRUP 200 MG/10 ML UDC PO PRN (08:00)
[2020-10-21] MEDS ORDERED: NITROGLYCERIN 0.4 MG SUBL TABLET SL PRN (08:00)
[2020-10-21] MEDS ORDERED: ALBUTEROL SULFATE 2.5 MG/0.5 ML INH NEB SOLN INH SCH (09:00)
[2020-10-21] MEDS: predniSONE 20 MG TAB PO SCH (09:08)
[2020-10-21] MEDS: HumaLOG INSULIN (NovoLOG) PER UNIT SC SCH ×4 (09:09→21:00)
[2020-10-21] MEDS ORDERED: INSU100V2 SC (09:15)
[2020-10-21] MEDS ORDERED: BACITAB PO (09:15)
[2020-10-21] MEDS ORDERED: CLOP75TA2 PO (09:24)
[2020-10-21] MEDS ORDERED: HOME MED LIST COMPLETE! XX SCH (09:25)
[2020-10-21] MEDS: LACTOBACILLUS ACIDOPHILUS CAP (BACID) PO SCH ×2 (10:51→23:12)
[2020-10-21] MEDS: ASPIRIN 81MG ENTERIC TABLET PO SCH (10:51)
[2020-10-21] MEDS: CLOPIDOGREL 75 MG TAB PO SCH (10:52)
[2020-10-21] MEDS: CALCITRIOL 0.25 MCG CAP (S0169) PO SCH (10:52)
[2020-10-21] MEDS: LEVOTHYROXINE 125MCG TABLET (0.125MG) PO SCH (10:58)
[2020-10-21] MEDS: VANCOMYCIN ORAL SOL 250MG/5ML ORAL SYRINGE PO SCH ×2 (10:59→18:45)
[2020-10-21] MEDS: SYMBICORT 160/4.5MCG INHALER 6GM INH SCH ×2 (10:59→20:17)
[2020-10-21] MEDS ORDERED: AZITHROMYCIN 250MG TABLET PO ONE (11:00)
[2020-10-21] MEDS ORDERED: LIDOCAINE 1% SDV 5ML VIAL SQ ONE (11:25)
[2020-10-21] MEDS: MIDODRINE 5 MG TAB PO SCH ×2 (12:00→16:06)
[2020-10-21] MEDS: IPRATROPIUM 0.5MG/ALBUTEROL 2.5MG INH SOL UD 3ML (DUONEB) NEB SCH ×3 (12:00→20:17)
--- NOTE | 2020-10-21 14:12 | IPNPDOC ---
Text Note Date of Service The patient was seen on 10/21/20. NOTE Subjective: No new acute events overnight. Patient continues to complain of congested cough and difficulties in breathing Objective: GENERAL APPEARANCE: Obese female HEENT: no scleral icterus, plus JVD, EOMI CARDIOVASCULAR: S1S2 LUNGS: Crackles bilaterally ABDOMEN: soft & not tender w palpation MUSCULOSKELETAL: no cyanosis, no swelling INTEGUMENT: no generalized pallor NEUROLOGICAL: cranial nerve function from 2-12 intact, follows commands, speech not dysarthric Assessment and plan Patient is 70 years old female with past medical history of ESRD, Chronic CAD / CABG, Chronic HFpEF, Pulm HTN, IDDM, Chronic Asthma, hx of GI bleed, DIXON & PVD who is admitted for evaluation of dyspnea Dyspnea Multifactorial Most likely secondary to COPD exacerbation and fluid overload End-stage renal disease Discussed the case with Dr. Marcial, he recommended dialysis today to stabilize volume status Acute on chronic diastolic CHF BNP elevated 1900 Volume status will be regulated by dialysis Asthma exacerbation Continue inhalers, prednisone 40 p.o. daily. Patient has intermittent congested cough I added azithromycin p.o. for 5 days Coronary artery disease status post CABG Continue home meds Type 2 diabetes Insulin sliding scale Diabetes diet Hypothyroidism Continue levothyroxine Obesity BMI of 42.9 complicated acute GERD Continue PPI VS,Fishbone, I+O VS, Fishbone, I+O Laboratory Tests 10/20/20 23:41 10/21/20 05:53 Vital Signs Date Time Temp Pulse Resp B/P (MAP) Pulse Ox O2 Delivery O2 Flow Rate FiO2 10/21/20 08:00 98.0 95 20 103/54 (70) 100 Nasal Cannula 2.0 LILIAN POWER DO Oct 21, 2020 14:11
[2020-10-21] MEDS: HEPARIN SOD (PORCINE) 5000UNITS/ML 1ML VIAL/SYRINGE SC SCH ×2 (16:01→23:12)
[2020-10-21] MEDS: PANTOPRAZOLE 40MG TAB (PROTONIX) PO SCH (16:01)
[2020-10-21] MEDS: METOPROLOL TART 25 MG TABLET PO SCH ×2 (16:02→22:00)
--- NOTE | 2020-10-21 20:55 | CR ---
CONSULTATION DATE: 10/21/2020 REASON FOR CONSULTATION: Shortness of breath in this lady with end-stage renal disease. HISTORY OF PRESENT ILLNESS: Ms. Duran is a 70-year-old female with multiple chronic medical problems. She has been admitted to [facility] and [facility] multiple times during the last few months due to similar problems. She had a coronary artery bypass surgery in July 2020. Since then, she has not done very well. She has known history of grade 1 diastolic dysfunction with recurrent congestive heart failure, pulmonary hypertension, diabetes, asthma and hypothyroidism. She was admitted to [facility] just a couple of weeks ago and treated for possible pneumonia. She reports that she developed severe cough early this morning and could not breathe. She thought that she was going to collapse. She was brought to the emergency room and she frequently gets hypoxic even while talking and coughing. She did receive her dialysis treatment yesterday and is due for the next dialysis on October 22. A nephrology consultation was requested and the patient is seen this morning in the emergency room. PAST MEDICAL HISTORY: Significant for: 1. Longstanding history of diabetes. 2. Hypertension. 3. Coronary artery disease, status post coronary artery bypass grafting in July 2020. 4. History of congestive heart failure with diastolic dysfunction. 5. History of pulmonary hypertension. 6. History of chronic asthma. 7. Gastroesophageal reflux disease. 8. Hypothyroidism. 9. Diverticulosis. 10.Obstructive sleep apnea. 11.Peripheral vascular disease. PAST SURGICAL HISTORY: Significant for appendectomy, cataract surgery, carpal tunnel release, tonsillectomy, section, dilatation and curettage, left ankle fracture and coronary artery bypass surgery. She also had AV fistula surgeries and a permacath placement. PERSONAL AND SOCIAL HISTORY: The patient denies any alcohol, drugs or tobacco use. FAMILY HISTORY: Noncontributory for this admission. MEDICATIONS: Her home medications include albuterol inhaler and nebulizers as needed. Aspirin 81 mg daily, atorvastatin 40 mg daily, Symbicort 160/3.5 mcg 2 puffs twice a day, calcitriol 0.25 mcg daily, Plavix 75 mg daily, Lantus insulin 10 units daily and Humalog insulin per sliding scale, levothyroxine 125 mcg daily, midodrine 10 mg three times a day, pantoprazole 40 mg daily, nitroglycerine as needed and Tylenol as needed. ALLERGIES: She has multiple allergies including CEPHALEXIN, TRAMADOL, CHLORHEXIDINE, NITROFURANTOIN, SULFA and QUINOLONES. REVIEW OF SYSTEMS: The patient denies any fevers or chills. She is just short of breath and has frequent cough, but unable to bring up any phlegm. Ears, nose and throat are unremarkable. Cardiovascular system: Significant for coronary artery disease and diastolic congestive heart failure. She is quite short of breath. Respiratory system: Significant for cough without any hemoptysis or pleuritic type of symptoms. Gastrointestinal (GI) system: Negative for vomiting or diarrhea. She does have a history of diverticulosis. She has a history of gastrointestinal bleed in the past. Genitourinary () system: Negative for dyspnea or hematuria. Musculoskeletal system: Significant for chronic degenerative arthritis and inability to ambulate right now. Endocrine system: Significant for diabetes and hypothyroidism. She also secondary hypothyroidism. Hematological system: Significant for anemia of chronic kidney disease. She is currently not on any long-term anticoagulation. Neurological system: Negative for seizures or stroke. PHYSICAL EXAMINATION: Temperature 98.0 degrees Fahrenheit, heart rate 95 per minute, respiratory rate 24 per minute. Blood pressure 102/54 mmHg and oxygen saturation 98% on 2 liters oxygen. She did drop oxygen down to 77% in my presence when she had an episode of cough. Head is atraumatic. Neck supple and jugular venous distention (JVD) is moderately elevated. Heart sounds are regular and lungs with bilateral rhonchi and wheezing. Abdomen: Obese, soft and nontender. Bowel sounds are normal. Extremities without any cyanosis or clubbing. She has a permacath on the right upper chest. Neurologically, she is at her baseline mentation without focal deficit. LABORATORY DATA: WBC count this morning is 14.9, hemoglobin 10.7 and hematocrit 35.5, platelets 374. Sodium 133, potassium 4.5, Co2 8, BUN 16 and creatinine 3.22. Her BNP level is just 1900. Hemoglobin A1c is 6.1 and calcium 9.3. Troponin less than 0.02. Chest x-ray done in the emergency room showed hyperinflated lungs with patchy bilateral lung opacities and possible bilateral small pleural effusions. PROBLEMS: 1. Shortness of breath, most likely this is multifactorial. She probably has some volume overload; however, she also has significant bronchial secretions and cough. Will try to optimize her volume status with a short hemodialysis session today and another hemodialysis session tomorrow. Will try to remove as much fluid as she could tolerate. She probably would benefit from more aggressive respiratory treatment with antibiotics, nebulizers and possible chest PT. 2. Anemia. Her anemia is chronic and stable. Does not need any urgent intervention. 3. Hyponatremia. She has mild hyponatremia for which no intervention is needed. 4. Congestive heart failure. She does have a history of diastolic congestive heart failure in the setting of end-stage renal disease. She has chronic hypotension particularly during dialysis and is unable to tolerate aggressive fluid removal. Would try to remove some fluid today with ultrafiltration and another session of regular hemodialysis tomorrow. Thank you for involving me in the case of Ms. Duran. I will follow her along with you.
[2020-10-21 22:48] VITALS: BP 108/52
[2020-10-21] MEDS: ATORVASTATIN 20 MG TAB PO SCH (23:12)
[2020-10-22] VITALS (8 sets, daily range): BP systolic 78–103; BP diastolic 31–58; O2SAT 100
[2020-10-22] MEDS: IPRATROPIUM 0.5MG/ALBUTEROL 2.5MG INH SOL UD 3ML (DUONEB) NEB SCH ×7 (00:54→23:54)
[2020-10-22] MEDS: VANCOMYCIN ORAL SOL 250MG/5ML ORAL SYRINGE PO SCH ×4 (01:37→17:43)
[2020-10-22 05:48] LABS: BASO % 0.2 % (0.0-1.0); HEMATOCRIT 33.3 % (36.0-47.0); LYMPH % 5.6 % (24.0-44.0); MEAN CORPUSCULAR HEMOGLOBIN 29.1 pg (27.0-33.0); MEAN CORPUSCULAR VOLUME 96.8 fl (80.0-96.0); MONO # 1.2 10^3/uL (0.0-0.8); MONO % 7.2 % (2.0-8.0); NEUTROPHILS # 14.7 10^3/uL (1.5-8.5); NEUTROPHILS % 86.1 % (36.0-66.0); PLATELET COUNT, AUTOMATED 393 10^3/uL (150-450); RED BLOOD COUNT 3.44 10^6/uL (4.00-5.40); WHITE BLOOD COUNT 17.1 10^3/uL (4.0-10.0)
[2020-10-22] MEDS: METOPROLOL TART 25 MG TABLET PO SCH ×3 (06:00→21:13)
[2020-10-22] MEDS: HEPARIN SOD (PORCINE) 5000UNITS/ML 1ML VIAL/SYRINGE SC SCH ×3 (06:12→21:12)
[2020-10-22] MEDS: MIDODRINE 5 MG TAB PO SCH ×3 (06:14→17:07)
[2020-10-22] MEDS: LEVOTHYROXINE 125MCG TABLET (0.125MG) PO SCH (06:14)
[2020-10-22] MEDS: LACTOBACILLUS ACIDOPHILUS CAP (BACID) PO SCH ×2 (06:14→21:13)
[2020-10-22] MEDS: PANTOPRAZOLE 40MG TAB (PROTONIX) PO SCH (06:15)
[2020-10-22] MEDS: CLOPIDOGREL 75 MG TAB PO SCH (06:15)
[2020-10-22] MEDS: predniSONE 20 MG TAB PO SCH (06:15)
[2020-10-22] MEDS: ASPIRIN 81MG ENTERIC TABLET PO SCH (06:15)
[2020-10-22] MEDS: CALCITRIOL 0.25 MCG CAP (S0169) PO SCH (06:15)
[2020-10-22 06:27] LABS: ALBUMIN 3.1 GM/DL (3.2-5.2); BILIRUBIN,TOTAL 0.4 MG/DL (0.2-1.0); CALCIUM LEVEL 9.4 MG/DL (8.8-10.2); CREATININE FOR GFR 4.59 MG/DL (0.55-1.30); MAGNESIUM LEVEL 2.6 MG/DL (1.8-2.4); POTASSIUM SERUM 5.3 MEQ/L (3.5-5.1); TOTAL PROTEIN 6.5 GM/DL (6.4-8.2)
[2020-10-22] MEDS: AZITHROMYCIN 250MG TABLET PO SCH (06:27)
[2020-10-22] MEDS: FUROSEMIDE 40MG/4ML VIAL (J1940) IV SCH (06:36)
[2020-10-22] MEDS: HumaLOG INSULIN (NovoLOG) PER UNIT SC SCH ×4 (07:30→21:00)
[2020-10-22] MEDS: SYMBICORT 160/4.5MCG INHALER 6GM INH SCH ×2 (07:55→20:00)
--- NOTE | 2020-10-22 13:30 | IPN ---
PROGRESS NOTE DATE: 10/22/2020 SUBJECTIVE: Mrs. Duran is seen this morning on her bedside during dialysis. She is feeling slightly better compared to yesterday. She tolerated ultrafiltration well yesterday and we were able to remove about 1,500 mL of fluid. She still has cough with rattling in her chest, but she is unable to bring up any phlegm. She is no fever or chills. PHYSICAL EXAMINATION: VITALS: Temperature 96.9 degrees Fahrenheit, heart rate 86 per minute, respiratory rate 16 per minute, blood pressure 100/58 mmHg, oxygen saturation 98% on 2 liters oxygen. HEENT: Head is atraumatic. Neck is supple and JVD is minimally elevated. LUNGS: Bilateral rhonchi and wheezing. HEART: Sounds are irregular in rhythm. ABDOMEN: Soft and nontender. Bowel sounds normal. EXTREMITIES: Without any cyanosis or clubbing. NEUROLOGIC: She is at her baseline mentation without a focal deficit. LABORATORY STUDIES: Today's labs show WBC 17.1, hemoglobin 10.0, hematocrit 33.3, platelets 393,000. Sodium 132, potassium 5.3, BUN 31, creatinine 4.59. Serum albumin 3.1. PROBLEMS: 1. Shortness of breath: She has cough, but unable to bring up any phlegm. She sounds very coarse, but I do not hear any crackles in her lungs. Her volume status seems to be much better now. We are trying to remove about 1.5 liters of fluid again today. Yesterday we removed 1.5 liters with ultrafiltration. She mostly has COPD and bronchitis. She should continue with antibiotics, steroids and nebulizers along with chest physical therapy. 2. Hyperkalemia: She has mild hyperkalemia which will be corrected with dialysis and no other intervention would be needed. 3. Hyponatremia: She has mild chronic hyponatremia probably related to her lung disease and end-stage renal disease. This is also likely to improve with dialysis and no other intervention is needed. 4. Anemia: At this point, her anemia is stable and does not need any urgent intervention. Her CBC should be checked again. We will give her Aranesp if needed.
--- NOTE | 2020-10-22 13:32 | REP ---
INDICATION: pna COMPARISON: 07/02/2020 the latest prior TECHNIQUE: Standard helical technique limited by the lack of intravenous contrast administration. FINDINGS: There is no significant change in appearance of the mediastinum or pulmonary ria. There are no pleural or pericardial effusions. There is no significant change in appearance of the imaged upper abdomen or imaged osseous structures. Evaluation of the lung aquino shows a new right lower lobe consolidation with air bronchograms and bilateral asymmetric densities along with respiratory motion artifact and lung field hypoexpansion. A curvilinear and nodular density is again seen in the inferior lingula status quo. IMPRESSION: 1. Right lower lobe consolidation consistent with pneumonia versus atelectasis or likely a combination of both. Follow-up is recommended. 2. Chronic lung field changes and exam limitations as described above. <Electronically signed by Jayant Jordan > 10/22/20 [id number]
--- NOTE | 2020-10-22 14:23 | IPNPDOC ---
Text Note Date of Service The patient was seen on 10/22/20. NOTE Subjective: Patient developed hypotension event after dialysis, he her blood pressure was 75/50, subsequently increased to 85/60 Objective: GENERAL APPEARANCE: Obese female HEENT: no scleral icterus, plus JVD, EOMI CARDIOVASCULAR: S1S2, tachycardic with rate 120 LUNGS: Crackles bilaterally, gurgling lung sounds over trachea ABDOMEN: soft & not tender w palpation MUSCULOSKELETAL: no cyanosis, no swelling INTEGUMENT: no generalized pallor NEUROLOGICAL: cranial nerve function from 2-12 intact, follows commands, speech not dysarthric Assessment and plan Patient is 70 years old female with past medical history of ESRD, Chronic CAD / CABG, Chronic HFpEF, Pulm HTN, IDDM, Chronic Asthma, hx of GI bleed, DIXON & PVD who is admitted for evaluation of dyspnea Dyspnea/ acute bronchitis Multifactorial Most likely secondary to COPD exacerbation and fluid overload CT chest was done and showed. Right lower lobe consolidation consistent with pneumonia versus atelectasis or likely a combination of both. Continue azithromycin p.o. 500 mg Acapella, chest physical therapy End-stage renal disease Continue dialysis Acute on chronic diastolic CHF BNP elevated 1900 Volume status will be regulated by dialysis Asthma exacerbation Continue inhalers, prednisone 40 p.o. daily. Patient has intermittent congested cough I added azithromycin p.o. for 5 days Coronary artery disease status post CABG Continue home meds Type 2 diabetes Insulin sliding scale Diabetes diet Hypothyroidism Continue levothyroxine Obesity BMI of 42.9 complicated acute GERD Continue PPI Anemia Secondary to end-stage renal disease Aranesp per nephrology team VS,Grayson, I+O VS, Grayson, I+O Laboratory Tests 10/22/20 05:32 Vital Signs Date Time Temp Pulse Resp B/P (MAP) Pulse Ox O2 Delivery O2 Flow Rate FiO2 10/22/20 07:30 2.0 10/22/20 06:00 96.9 87 16 101/58 (72) 98 Nasal Cannula I&O- Last 24 Hours up to 6 AM 10/22/20 06:00 Intake Total 100 ml Output Total 1500 ml Balance -1400 ml LILIAN POWER DO Oct 22, 2020 14:23
--- NOTE | 2020-10-22 18:50 | ECGEPIP ---
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
[2020-10-22] MEDS: ATORVASTATIN 20 MG TAB PO SCH (21:13)
[2020-10-23] VITALS (19 sets, daily range): BP systolic 79–125; BP diastolic 41–63; O2SAT 87–99
[2020-10-23] MEDS ORDERED: NS 500 ML IV ONE (00:10)
[2020-10-23] MEDS: VANCOMYCIN ORAL SOL 250MG/5ML ORAL SYRINGE PO SCH ×4 (00:17→20:32)
[2020-10-23] MEDS ORDERED: MIDODRINE 5 MG TAB PO ONE (00:20)
[2020-10-23] MEDS: IPRATROPIUM 0.5MG/ALBUTEROL 2.5MG INH SOL UD 3ML (DUONEB) NEB SCH ×6 (04:00→23:56)
[2020-10-23] MEDS: METOPROLOL TART 25 MG TABLET PO SCH (05:31)
[2020-10-23] MEDS: LEVOTHYROXINE 125MCG TABLET (0.125MG) PO SCH (05:37)
[2020-10-23] MEDS: HEPARIN SOD (PORCINE) 5000UNITS/ML 1ML VIAL/SYRINGE SC SCH ×3 (05:37→20:32)
[2020-10-23 05:54] LABS: BASO % 0.2 % (0.0-1.0); EOS % 0.1 % (0.0-3.0); HEMATOCRIT 34.5 % (36.0-47.0); HEMOGLOBIN 10.3 g/dl (12.0-15.5); LYMPH # 1.4 10^3/uL (1.5-5.0); LYMPH % 8.8 % (24.0-44.0); MEAN CORPUSCULAR HEMOGLOBIN 29.2 pg (27.0-33.0); MEAN CORPUSCULAR HGB CONC 29.9 g/dl (32.0-36.5); MEAN CORPUSCULAR VOLUME 97.7 fl (80.0-96.0); MONO % 12.4 % (2.0-8.0); NEUTROPHILS # 12.3 10^3/uL (1.5-8.5); NEUTROPHILS % 77.6 % (36.0-66.0); PLATELET COUNT, AUTOMATED 420 10^3/uL (150-450); RED BLOOD COUNT 3.53 10^6/uL (4.00-5.40)
[2020-10-23 06:26] LABS: BILIRUBIN,TOTAL 0.3 MG/DL (0.2-1.0); CALCIUM LEVEL 9.1 MG/DL (8.8-10.2); CREATININE FOR GFR 3.12 MG/DL (0.55-1.30); GLOMERULAR FILTRATION RATE 15.7 (>39); MAGNESIUM LEVEL 2.2 MG/DL (1.8-2.4); POTASSIUM SERUM 4.4 MEQ/L (3.5-5.1); TOTAL PROTEIN 6.4 GM/DL (6.4-8.2)
[2020-10-23 06:33] LABS: WHITE BLOOD COUNT 15.9 10^3/uL (4.0-10.0)
[2020-10-23] MEDS: HumaLOG INSULIN (NovoLOG) PER UNIT SC SCH ×4 (07:30→21:00)
[2020-10-23] MEDS: SYMBICORT 160/4.5MCG INHALER 6GM INH SCH ×2 (07:40→19:46)
[2020-10-23] MEDS: CALCITRIOL 0.25 MCG CAP (S0169) PO SCH (08:45)
[2020-10-23] MEDS: PANTOPRAZOLE 40MG TAB (PROTONIX) PO SCH (08:45)
[2020-10-23] MEDS: AZITHROMYCIN 250MG TABLET PO SCH (08:45)
[2020-10-23] MEDS: predniSONE 20 MG TAB PO SCH (08:45)
[2020-10-23] MEDS: MIDODRINE 5 MG TAB PO SCH ×3 (08:45→15:35)
[2020-10-23] MEDS: ASPIRIN 81MG ENTERIC TABLET PO SCH (08:45)
[2020-10-23] MEDS: LACTOBACILLUS ACIDOPHILUS CAP (BACID) PO SCH ×2 (08:45→20:32)
[2020-10-23] MEDS: CLOPIDOGREL 75 MG TAB PO SCH (08:45)
[2020-10-23] MEDS: FUROSEMIDE 40MG/4ML VIAL (J1940) IV SCH (08:46)
--- NOTE | 2020-10-23 09:29 | IPNPDOC ---
Text Note Date of Service The patient was seen on 10/23/20. NOTE Subjective: Patient stated that she feels better today and her breathing impr michele Objective: GENERAL APPEARANCE: Obese female HEENT: no scleral icterus, plus JVD, EOMI CARDIOVASCULAR: S1S2 LUNGS: Mild crackles bilaterally, gurgling lung sounds over trachea ABDOMEN: soft & not tender w palpation MUSCULOSKELETAL: no cyanosis, +1 swelling of lower extremities INTEGUMENT: no generalized pallor NEUROLOGICAL: cranial nerve function from 2-12 intact, follows commands, speech not dysarthric Assessment and plan Patient is 70 years old female with past medical history of ESRD, Chronic CAD / CABG, Chronic HFpEF, Pulm HTN, IDDM, Chronic Asthma, hx of GI bleed, DIXON & PVD who is admitted for evaluation of dyspnea Dyspnea/ acute bronchitis Multifactorial Most likely secondary to COPD exacerbation and fluid overload CT chest was done and showed. Right lower lobe consolidation consistent with pneumonia versus atelectasis or likely a combination of both. Continue azithromycin p.o. 500 mg Acapella, chest physical therapy End-stage renal disease Continue dialysis Nephrology team follows here Acute on chronic diastolic CHF BNP significantly elevated Volume status will be regulated by dialysis Asthma exacerbation Continue inhalers, prednisone 40 p.o. daily. Patient has intermittent congested cough I added azithromycin p.o. for 5 days. Day 2 Coronary artery disease status post CABG Continue home meds Type 2 diabetes Insulin sliding scale Diabetes diet Hypothyroidism Continue levothyroxine Obesity BMI of 42.9 complicated acute GERD Continue PPI Normocytic anemia/iron deficient anemia Secondary to end-stage renal disease/and anemia of chronic diseases Aranesp per nephrology team History of C. difficile P.o. vancomycin was started outpatient. I will stop vancomycin p.o. in 3 to 4 days after completion of antibiotic treatment DVT prophylaxis with heparin 5000 twice daily VS,Fishbone, I+O VS, Fishbone, I+O Laboratory Tests 10/23/20 05:25 Vital Signs Date Time Temp Pulse Resp B/P (MAP) Pulse Ox O2 Delivery O2 Flow Rate FiO2 10/23/20 08:00 97.4 103 23 89/50 (63) 100 Nasal Cannula 2.0 I&O- Last 24 Hours up to 6 AM 10/23/20 06:00 Intake Total 320 ml Output Total 1500 ml Balance -1180 ml LILIAN POWER DO Oct 23, 2020 09:29
[2020-10-23] MEDS ORDERED: DIGOXIN 0.25 MG TAB PO ONE (11:10)
[2020-10-23] MEDS: ATORVASTATIN 20 MG TAB PO SCH (20:32)
--- NOTE | 2020-10-23 22:26 | IPN ---
NEPHROLOGY PROGRESS NOTE DATE: 10/23/2020 SUBJECTIVE: Mrs. Duran is seen this morning at her bedside. She was transferred to the progressive care unit last evening due to atrial fibrillation with rapid ventricular rate. She has been treated with beta blockers and her heart rate has improved. She is still very short of breath and continues to cough, however reports some improvement in her cough. She denies any nausea or vomiting. OBJECTIVE: PHYSICAL EXAMINATION: VITAL SIGNS: Temperature 98.4 degrees Fahrenheit, heart rate 70 per minute, respiratory rate 26 per minute. Her heart rate has been between low 70's to high 80's now. Oxygen saturation is 96% on 2 liters oxygen. HEENT: Head is atraumatic. NECK: Supple and without JVD or thyroid enlargement. HEART: Sounds are irregular in rhythm. LUNGS: Bilateral rhonchi and coarse crepitations. ABDOMEN: Soft and nontender and bowel sounds are normal. EXTREMITIES: Without any cyanosis or clubbing. NEUROLOGICAL: She is awake, alert and at her baseline mentation without any focal neurological deficits. LABORATORY STUDIES: Today's labs show a WBC count of 15.9, hemoglobin 10.3 and hematocrit 34.5. Platelet count 420. Sodium 135, potassium 4.4, CO2 28, BUN 16 and creatinine 3.12. Glucose is 111 and calcium 9.1. BNP level is up to 3,545 and albumin is 3.0. PROBLEMS: 1. End-stage renal disease - The patient was dialyzed yesterday and we will plan the next dialysis tomorrow. Electrolytes are within normal range and volume status seems well compensated. 2. Congestive heart failure - The patient had atrial fibrillation with a rapid ventricular rate through the night which most likely contributed to increase in her BNP level. She had hemodialysis and ultrafiltration over the last 2 days with 3 liters of fluid removal. I do not feel that she will tolerate further fluid removal today. She was hypotensive yesterday after ultrafiltration and required a fluid bolus. We will plan the next dialysis on October 24. 3. Atrial fibrillation with rapid ventricular rate - The patient has a history of chronic hypotension and has been on Midodrine now. She was treated with Metoprolol for atrial fibrillation rate control. I have discussed with the Hospitalist and I feel that she should be treated with Digoxin and not beta nancy as she gets very hypotensive particularly during and after dialysis. Digoxin 0.25 mg one dose is being given today and 0.125 mg daily. After 3 or 4 doses we will consider to cut down her Digoxin dose to 0.125 mg three times a week. Her Metoprolol is being stopped. 4. Cough and shortness of breath she most likely has ongoing bronchial infection. She remains on steroids and antibiotics along with nebulizer therapy. 5. Anemia so far her anemia is stable and we will continue to monitor closely. 6. Hypotension she has chronic hypotension, particularly during and after dialysis and remains on Midodrine which should be continued.
[2020-10-24] VITALS (15 sets, daily range): BP systolic 106–152; BP diastolic 51–74; O2SAT 84–99
[2020-10-24] MEDS: VANCOMYCIN ORAL SOL 250MG/5ML ORAL SYRINGE PO SCH ×5 (00:26→23:55)
[2020-10-24] MEDS: IPRATROPIUM 0.5MG/ALBUTEROL 2.5MG INH SOL UD 3ML (DUONEB) NEB SCH ×5 (03:22→20:00)
[2020-10-24] MEDS: LEVOTHYROXINE 125MCG TABLET (0.125MG) PO SCH (05:35)
[2020-10-24] MEDS: HEPARIN SOD (PORCINE) 5000UNITS/ML 1ML VIAL/SYRINGE SC SCH ×3 (05:35→21:16)
[2020-10-24] MEDS: SYMBICORT 160/4.5MCG INHALER 6GM INH SCH ×2 (07:24→20:58)
[2020-10-24] MEDS: LACTOBACILLUS ACIDOPHILUS CAP (BACID) PO SCH ×2 (08:44→21:16)
[2020-10-24] MEDS: HumaLOG INSULIN (NovoLOG) PER UNIT SC SCH ×4 (08:44→21:00)
[2020-10-24] MEDS: ASPIRIN 81MG ENTERIC TABLET PO SCH (08:44)
[2020-10-24] MEDS: DIGOXIN 0.125 MG TAB PO SCH (08:44)
[2020-10-24] MEDS: CALCITRIOL 0.25 MCG CAP (S0169) PO SCH (08:45)
[2020-10-24] MEDS: predniSONE 20 MG TAB PO SCH (08:45)
[2020-10-24] MEDS: AZITHROMYCIN 250MG TABLET PO SCH (08:45)
[2020-10-24] MEDS: CLOPIDOGREL 75 MG TAB PO SCH (08:45)
[2020-10-24] MEDS: MIDODRINE 5 MG TAB PO SCH ×3 (08:45→16:00)
[2020-10-24] MEDS: PANTOPRAZOLE 40MG TAB (PROTONIX) PO SCH (08:45)
--- NOTE | 2020-10-24 11:51 | IPNPDOC ---
Text Note Date of Service The patient was seen on 10/24/20. NOTE Subjective: Patient is a 70-year-old female who presented to the hospital with shortness of breath and was diagnosed with acute bronchitis and acute on chronic diastolic congestive heart failure. Patient says that she is feeling mildly better. Patient is scheduled to get dialysis later on today. Patient did have an episode of hypotension after ultrafiltration and she required fluid bolus. Patient also had a metoprolol discontinued and was started on digoxin for atrial fibrillation with rate is mildly elevated but she is otherwise feeling well today. Patient does not have any complaints. Review of systems: General: Patient denies fevers HEENT: Patient denies headaches Cardiovascular: Patient denies chest pain Respiratory: Patient reports improvement in her shortness of breath, cough GI: Patient denies abdominal pain, nausea, vomiting, diarrhea : Patient denies increased frequency or pain with urination Extremities: Patient denies swelling or pain in extremities Neurological: Patient denies numbness or tingling in legs Physical exam: Vitals: See below General: Alert and oriented female patient who was sitting up in bed who did not appear to be in any acute distress. Patient was wearing nasal cannula oxygen. HEENT: Normocephalic, atraumatic, moist mucous membranes. Neck: No lymphadenopathy or thyromegaly Cardiac: Irregularly irregular rhythm with a rate around 90, no murmurs, normal S1, normal S2 Pulm: Crackles in the bilateral bases with rhonchorous sounds throughout the lung aquino that cleared with coughing Abd: Nondistended, nontender to palpation, normal bowel sounds Ext: No edema bilateral lower extremities Labs: See below Imaging: No new imaging has been performed Assessment/plan: 70-year-old female with past medical history of end-stage renal disease, chronic CAD/CABG, chronic heart failure with preserved ejection fraction, pulmonary hypertension, insulin-dependent diabetes mellitus, chronic asthma, history of GIB, obstructive sleep apnea, and PVD who was admitted for evaluation of dyspnea 1. Dyspnea/acute bronchitis. Multifactorial. Most likely secondary to see his COPD exacerbation with fluid overload. Chest CT was done and showed a right lower lobe consolidation consistent with pneumonia versus atelectasis. Patient will continue on azithromycin with Acapella and chest PT. 2. End-stage renal disease. Continue with dialysis and I appreciate nephrology's help treating the patient. 3. Acute on chronic heart failure with preserved ejection fraction. Volume status was regulated by dialysis. 4. Asthma exacerbation. Continue inhalers and prednisone. 5. Coronary artery disease status post CABG. Continue home medications. 6. Type 2 diabetes. Insulin sliding scale diabetic diet. 7. Hypothyroidism. Continue levothyroxine. 8. Obesity with BMI of 36.8 today which is complicating the patient's care. 9. GERD. Continue PPI. 10. Normocytic anemia/iron deficiency anemia Secondary to end-stage renal disease. Aranesp per nephrology team. 11. History of C. difficile. P.o. vancomycin was started outpatient. Vancomycin can be continued until after completion of antibiotic treatment. DVT Prophylaxis: Heparin Disposition: Pending clinical improvement VS,Grayson, I+O VS, Grayson, I+O Vital Signs Date Time Temp Pulse Resp B/P (MAP) Pulse Ox O2 Delivery O2 Flow Rate FiO2 10/24/20 08:44 102 10/24/20 04:00 97.4 20 125/59 (81) 99 Nasal Cannula 2.0 I&O- Last 24 Hours up to 6 AM 10/24/20 06:00 Intake Total 1010 ml Output Total 0 ml Balance 1010 ml GLORIA WINCHESTER DO Oct 24, 2020 11:51
[2020-10-24] MEDS: ATORVASTATIN 20 MG TAB PO SCH (21:16)
--- NOTE | 2020-10-24 21:37 | IPN ---
PROGRESS NOTE DATE: 10/24/2020 SUBJECTIVE: Mrs. Duran is seen this morning on her bedside during hemodialysis. She is resting comfortably and reports that she has been feeling better. She did not drop her blood pressure today. She remains in atrial fibrillation, however, her ventricular rate is much better controlled. PHYSICAL EXAMINATION: VITAL SIGNS: Temperature 97.4 degrees Fahrenheit, heart rate 72 per minute, respiratory rate 18 per minute, blood pressure earlier 152/74 mmHg and most recent one down to 118/51 mmHg, oxygen saturation 97% on 2 liters oxygen. HEENT: Head is atraumatic. Neck is supple and JVD not abnormally elevated. LUNGS: Bilateral rhonchi and bronchial sounds. HEART: Sounds are irregular. ABDOMEN: Soft and nontender. Bowel sounds normal. EXTREMITIES: Without any cyanosis or clubbing. She does not have any peripheral edema. NEUROLOGIC: She is without a focal deficit. LABORATORY STUDIES: WBC 15.9; this was from yesterday. She did not have any labs done today. PROBLEMS: 1. End-stage renal disease: Patient is being dialyzed today and she is tolerating her dialysis treatment very well. 2. Congestive heart failure and hypoxemia: Patient looks quite comfortable today and we are removing 2 liters of fluid with dialysis, which she has tolerated well so far. I feel that her volume status is now very well compensated. Her BNP level can be repeated again tomorrow for comparison. 3. Bronchitis and cough: This is a chronic issue and seems to be improving with antibiotics, steroids and nebulizer therapy. I will recommend to continue with the same for at least a few more days until her condition improves. 4. Hypotension: Her blood pressure has improved with Midodrine and today she did not get hypotension during dialysis. I will recommend to continue with Midodrine 10 mg t.i.d. 5. Atrial fibrillation with rapid ventricular rate: She is now on Digoxin and ventricular rate is much better controlled. She is not likely to tolerate beta-nancy due to hypotension. 6. Anemia: Her anemia is stable at present and does not need any urgent intervention.
[2020-10-25] VITALS (19 sets, daily range): BP systolic 117–139; BP diastolic 59–66; O2SAT 94–100
[2020-10-25] MEDS: IPRATROPIUM 0.5MG/ALBUTEROL 2.5MG INH SOL UD 3ML (DUONEB) NEB SCH ×6 (04:00→19:29)
[2020-10-25] MEDS: VANCOMYCIN ORAL SOL 250MG/5ML ORAL SYRINGE PO SCH ×4 (05:50→23:53)
[2020-10-25] MEDS: HEPARIN SOD (PORCINE) 5000UNITS/ML 1ML VIAL/SYRINGE SC SCH ×3 (05:50→22:11)
[2020-10-25] MEDS: LEVOTHYROXINE 125MCG TABLET (0.125MG) PO SCH (05:51)
[2020-10-25] MEDS: SYMBICORT 160/4.5MCG INHALER 6GM INH SCH ×2 (07:13→19:29)
[2020-10-25] MEDS: HumaLOG INSULIN (NovoLOG) PER UNIT SC SCH ×4 (07:55→20:37)
[2020-10-25 08:09] LABS: BASO # 0.1 10^3/uL (0.0-0.2); BASO % 0.3 % (0.0-1.0); EOS # 0.1 10^3/uL (0.0-0.5); EOS % 0.3 % (0.0-3.0); HEMATOCRIT 38.9 % (36.0-47.0); HEMOGLOBIN 11.1 g/dl (12.0-15.5); LYMPH # 1.5 10^3/uL (1.5-5.0); LYMPH % 10.1 % (24.0-44.0); MEAN CORPUSCULAR HEMOGLOBIN 29.1 pg (27.0-33.0); MEAN CORPUSCULAR HGB CONC 28.5 g/dl (32.0-36.5); MEAN CORPUSCULAR VOLUME 101.8 fl (80.0-96.0); MONO % 10.5 % (2.0-8.0); NEUTROPHILS # 11.5 10^3/uL (1.5-8.5); NEUTROPHILS % 77.7 % (36.0-66.0); RED BLOOD COUNT 3.82 10^6/uL (4.00-5.40); WHITE BLOOD COUNT 14.8 10^3/uL (4.0-10.0)
[2020-10-25 08:39] LABS: MONO # 1.6 10^3/uL (0.0-0.8); PLATELET COUNT, AUTOMATED 346 10^3/uL (150-450)
[2020-10-25 10:13] LABS: ALBUMIN 3.2 GM/DL (3.2-5.2); BILIRUBIN,TOTAL 0.3 MG/DL (0.2-1.0); CALCIUM LEVEL 8.8 MG/DL (8.8-10.2); CREATININE FOR GFR 3.32 MG/DL (0.55-1.30); GLOMERULAR FILTRATION RATE 14.6 (>39); POTASSIUM SERUM 4.2 MEQ/L (3.5-5.1); TOTAL PROTEIN 6.5 GM/DL (6.4-8.2)
[2020-10-25] MEDS: ASPIRIN 81MG ENTERIC TABLET PO SCH (10:23)
[2020-10-25] MEDS: LACTOBACILLUS ACIDOPHILUS CAP (BACID) PO SCH ×2 (10:24→20:37)
[2020-10-25] MEDS: AZITHROMYCIN 250MG TABLET PO SCH (10:24)
[2020-10-25] MEDS: CLOPIDOGREL 75 MG TAB PO SCH (10:24)
[2020-10-25] MEDS: CALCITRIOL 0.25 MCG CAP (S0169) PO SCH (10:25)
[2020-10-25] MEDS: predniSONE 20 MG TAB PO SCH (10:25)
[2020-10-25] MEDS: DIGOXIN 0.125 MG TAB PO SCH (10:26)
[2020-10-25] MEDS: PANTOPRAZOLE 40MG TAB (PROTONIX) PO SCH (10:26)
[2020-10-25] MEDS: MIDODRINE 5 MG TAB PO SCH ×3 (10:30→16:02)
--- NOTE | 2020-10-25 14:22 | IPNPDOC ---
Text Note Date of Service The patient was seen on 10/25/20. NOTE Subjective: Patient is a 70-year-old female presented to hospital with shortness of breath and was diagnosed with acute bronchitis and acute on chronic diastolic congestive heart failure. Patient says she is feeling mildly better. Patient had dialysis done yesterday and she tolerated this well. Patient is otherwise feeling well today. Review of systems: General: Patient denies fevers HEENT: Patient denies headaches Cardiovascular: Patient denies chest pain Respiratory: Patient reports improvement in her shortness of breath and her cough GI: Patient denies abdominal pain, nausea, vomiting, diarrhea : Patient denies increased frequency or pain with urination Extremities: Patient denies swelling or pain in extremities Neurological: Patient denies numbness or tingling in legs Physical exam: Vitals: See below General: Alert and oriented female who is sitting the bedside chair I walked in. Patient has nasal cannula oxygen in place. Patient does not appear to be in any acute distress. HEENT: Normocephalic, atraumatic, moist mucous membranes. Neck: No lymphadenopathy or thyromegaly Cardiac: Regular rate and rhythm, no murmurs, normal S1, normal S2 Pulm: Rattling can be heard when the patient is breathing with rhonchi's throughout the lung field that clears with coughing. Crackles in the bilateral bases Abd: Nondistended, nontender to palpation, normal bowel sounds Ext: No edema bilateral lower extremities Labs: See below Imaging: No new imaging has been performed Assessment/plan: 70-year-old female with past medical history of ESRD, chronic coronary artery disease status post CABG, chronic heart failure preserved ejection fraction, pulmonary hypertension, insulin-dependent diabetes mellitus, chronic asthma, history of GI bleed, shortness sleep apnea, and PVD who was admitted for evaluation of dyspnea 1. Dyspnea/acute bronchitis. This is multifactorial mostly secondary to COPD exacerbation fluid overload. Chest CT was done showed a right lower lobe consolidations with pneumonia versus atelectasis. Continue with azithromycin, Acapella, and chest PT. 2. End-stage renal disease. Continue with dialysis and I appreciate Dr. Marcial 's help treating the patient. 3. Acute on chronic congestive heart failure with preserved ejection fraction. Volume status regulated by dialysis. Continue to dialyze the patient. 4. Asthma exacerbation. Continue inhalers and prednisone. 5. Coronary artery disease status post CABG. Continue home medications 6. Type 2 diabetes mellitus. Insulin sliding scale and diabetic diet. 7. Hypothyroidism. Her levothyroxine. 8. Obesity with BMI of 36.8. Complicating the patient's care. 9. GERD. Continue PPI. 10. Normocytic anemia/iron deficiency anemia. Secondary to end-stage renal disease. 11. History of C. difficile colitis. P.o. vancomycin was started outpatient. Continue till after antibiotic treatment. DVT Prophylaxis: Heparin Disposition: Pending clinical improvement VS,Grayson, I+O VS, Grayson, I+O Laboratory Tests 10/25/20 07:41 10/25/20 09:10 Vital Signs Date Time Temp Pulse Resp B/P (MAP) Pulse Ox O2 Delivery O2 Flow Rate FiO2 10/25/20 11:39 97.5 78 18 129/59 (82) 99 Nasal Cannula 2.0 I&O- Last 24 Hours up to 6 AM 10/25/20 06:00 Intake Total 1260 ml Output Total 2000 ml Balance -740 ml GLORIA WINCHESTER DO Oct 25, 2020 14:22
--- NOTE | 2020-10-25 20:19 | IPN ---
NEPHROLOGY PROGRESS NOTE DATE: 10/25/2020 SUBJECTIVE: Ms. Duran is seen on her bedside this afternoon. She is laying in her bed. She continues to be short of breath and reports persistent cough. She is still unable to bring up any phlegm. She was dialyzed yesterday and we removed 2 liters of fluid, which she tolerated well. PHYSICAL EXAMINATION: GENERAL: She is awake and without any acute distress. VITAL SIGNS: Temperature 97 degrees Fahrenheit, heart rate 92 per minute, respiratory rate 18 per minute, blood pressure 117/60 mmHg, oxygen saturation 100% on 2 liters oxygen. HEAD: Atraumatic. NECK: Supple and jugular venous distention (JVD) difficult to be assessed. She has a Permacath in her right upper chest. HEART SOUNDS: Irregular in rhythm. LUNGS: Bilateral course crepitations and rhonchi. ABDOMEN: Soft and nontender. Bowel sounds are normal. EXTREMITIES: Without any cyanosis or clubbing. NEUROLOGIC: She is awake, alert and at her baseline mentation. LABORATORY DATA: Today's labs show WBC 14.8, hemoglobin 11.1, hematocrit 38.9, platelets 346. Sodium 134, potassium 4.2, CO2 25, BUN 16, creatinine 3.32. Her BNP level is up to 4669 today. PROBLEMS: 1. End-stage renal disease. Patient was dialyzed yesterday and next dialysis will be scheduled for Tuesday. At present, there is no emergent need for dialysis today. Her electrolytes are stable. 2. Hypoxemia, cough and dyspnea. This is a combination of volume overload and infection. We have tried to optimize her volume status. We removed 2 liters yesterday. I fell that her BNP has increased because of recent atrial fibrillation and rapid ventricular rate. We will continue our efforts to remove as much fluid as she can tolerate. She has persistent cough with very coarse crepitations and rhonchi, which indicate bronchial secretions; however, she is unable to clear her airways. She remains on nebulizers, steroids and antibiotics. 3. Atrial fibrillation with rapid ventricular rate. At present, her ventricular rate is well controlled and she remains on digoxin and Eliquis. 4. Hypotension. Blood pressure is improved and she remains on midodrine 10 mg three times a day. 5. Anemia. Her anemia is mild and stable and does not need any urgent intervention.
[2020-10-25] MEDS: ATORVASTATIN 20 MG TAB PO SCH (20:37)
[2020-10-26] VITALS (7 sets, daily range): BP systolic 120–166; BP diastolic 57–71; O2SAT 100
[2020-10-26] MEDS: IPRATROPIUM 0.5MG/ALBUTEROL 2.5MG INH SOL UD 3ML (DUONEB) NEB SCH ×6 (03:51→20:00)
[2020-10-26] MEDS: HEPARIN SOD (PORCINE) 5000UNITS/ML 1ML VIAL/SYRINGE SC SCH ×3 (05:47→21:15)
[2020-10-26] MEDS: LEVOTHYROXINE 125MCG TABLET (0.125MG) PO SCH (05:47)
[2020-10-26] MEDS: VANCOMYCIN ORAL SOL 250MG/5ML ORAL SYRINGE PO SCH ×3 (05:47→17:51)
[2020-10-26 05:51] LABS: BASO % 0.2 % (0.0-1.0); HEMATOCRIT 29.4 % (36.0-47.0); LYMPH # 1.1 10^3/uL (1.5-5.0); LYMPH % 6.5 % (24.0-44.0); MEAN CORPUSCULAR HEMOGLOBIN 29.2 pg (27.0-33.0); MEAN CORPUSCULAR HGB CONC 30.6 g/dl (32.0-36.5); MEAN CORPUSCULAR VOLUME 95.5 fl (80.0-96.0); MONO # 1.3 10^3/uL (0.0-0.8); MONO % 7.7 % (2.0-8.0); NEUTROPHILS # 14.2 10^3/uL (1.5-8.5); NEUTROPHILS % 84.4 % (36.0-66.0); PLATELET COUNT, AUTOMATED 334 10^3/uL (150-450); RED BLOOD COUNT 3.08 10^6/uL (4.00-5.40); WHITE BLOOD COUNT 16.8 10^3/uL (4.0-10.0)
[2020-10-26 06:29] LABS: BILIRUBIN,TOTAL 0.3 MG/DL (0.2-1.0); CREATININE FOR GFR 4.73 MG/DL (0.55-1.30); GLOMERULAR FILTRATION RATE 9.7 (>39); POTASSIUM SERUM 4.7 MEQ/L (3.5-5.1); TOTAL PROTEIN 6.3 GM/DL (6.4-8.2)
[2020-10-26] MEDS: SYMBICORT 160/4.5MCG INHALER 6GM INH SCH ×2 (08:00→20:17)
[2020-10-26] MEDS: PANTOPRAZOLE 40MG TAB (PROTONIX) PO SCH (09:21)
[2020-10-26] MEDS: LACTOBACILLUS ACIDOPHILUS CAP (BACID) PO SCH ×2 (09:21→21:15)
[2020-10-26] MEDS: CALCITRIOL 0.25 MCG CAP (S0169) PO SCH (09:22)
[2020-10-26] MEDS: DIGOXIN 0.125 MG TAB PO SCH (09:22)
[2020-10-26] MEDS: MIDODRINE 5 MG TAB PO SCH ×3 (09:22→15:56)
[2020-10-26] MEDS: CLOPIDOGREL 75 MG TAB PO SCH (09:22)
[2020-10-26] MEDS: predniSONE 20 MG TAB PO SCH (09:22)
[2020-10-26] MEDS: ASPIRIN 81MG ENTERIC TABLET PO SCH (09:24)
[2020-10-26] MEDS: HumaLOG INSULIN (NovoLOG) PER UNIT SC SCH ×4 (09:30→21:16)
--- NOTE | 2020-10-26 10:38 | IPNPDOC ---
Text Note Date of Service The patient was seen on 10/26/20. NOTE Subjective: Patient is a 70-year-old female who initially presented to the [facility] shortness of breath and was diagnosed with acute bronchitis and acute on chronic diastolic ingestive heart failure. Patient says she is feeling mildly better. Patient's hemoglobin did drop by 2 points overnight. Patient denies having any blood in her stool or dark tarry stools. Patient otherwise is feeling well today. Review of systems: General: Patient denies fevers HEENT: Patient denies headaches Cardiovascular: Patient denies chest pain Respiratory: Patient denies shortness of breath, cough GI: Patient denies abdominal pain, nausea, vomiting, diarrhea : Patient denies increased frequency or pain with urination Extremities: Patient denies swelling or pain in extremities Neurological: Patient denies numbness or tingling in legs Physical exam: Vitals: See below General: Alert and oriented female patient who was sitting up in bed when I walked in. Patient has nasal cannula oxygen in place. Patient did not appear to be in any acute distress. HEENT: Normocephalic, atraumatic, moist mucous membranes. Neck: No lymphadenopathy or thyromegaly Cardiac: Regular rate and rhythm, no murmurs, normal S1, normal S2 Pulm: Rattling can be heard when the patient is breathing with rhonchi throughout the lung aquino. These clear with coughing. After the patient coughs, the lungs are clear to auscultation bilaterally Abd: Nondistended, nontender to palpation, normal bowel sounds Ext: No edema bilateral lower extremities Labs: See below Imaging: No new imaging has been performed Assessment/plan: 70-year-old female with past medical history of ESRD, chronic CAD status post CABG, chronic heart failure preserved ejection fraction, prior hypertension, insulin-dependent diabetes mellitus, chronic asthma, history of GI bleed, obstructive sleep apnea, and PVD was admitted for evaluation dyspnea 1. Dyspnea/acute bronchitis. This is multifactorial most likely secondary to COPD exacerbation with on top of fluid overload. Chest CT shows right lower lobe consolidation with pneumonia versus atelectasis. Azithromycin course has been completed. Continue with Acapella chest PT. 2. End-stage renal disease. Continue with dialysis and I appreciate Dr. Marcial's help treating the patient. 3. Acute on chronic congestive heart failure preserved ejection fraction. Volu me status regulated by dialysis. Continue dialysis patient. Patient appears euvolemic at this time. 4. Asthma/COPD exacerbation. Continue inhalers and prednisone. 5. Coronary artery disease status post CABG. Continue home medications. 6. Type 2 diabetes mellitus. Insulin sliding scale and diabetic diet. 7. Hypothyroidism. Continue her home levothyroxine. 8. Obesity with a BMI of 36.8. Complicating the patient's care. 9. GERD. Continue PPI. 10. Normocytic anemia/iron deficiency anemia. Patient's hemoglobin dropped from 11 yesterday to 9 this morning. Stool occult blood has been ordered. We will continue to monitor. Patient denies any blood in her stool. 11. History of C. difficile colitis. P.o. vancomycin was started outpatient. Patient will continue with this for 1 more day. DVT Prophylaxis: Heparin Disposition: Pending clinical improvement Grayson NAPIER, I+O VSGrayson, I+O Laboratory Tests 10/26/20 05:39 Vital Signs Date Time Temp Pulse Resp B/P (MAP) Pulse Ox O2 Delivery O2 Flow Rate FiO2 10/26/20 09:22 77 10/26/20 07:30 97.1 18 120/57 (78) 100 Nasal Cannula 2.0 I&O- Last 24 Hours up to 6 AM 10/26/20 06:00 Intake Total 240 ml Balance 240 ml GLORIA WINCHESTER DO Oct 26, 2020 10:38
[2020-10-26 14:09] LABS: HEMATOCRIT 33.7 % (36.0-47.0); HEMOGLOBIN 10.1 g/dl (12.0-15.5)
--- NOTE | 2020-10-26 19:20 | IPN ---
NEPHROLOGY PROGRESS NOTE DATE: 10/26/2020 SUBJECTIVE: Mrs. Duran is seen this morning at her bedside. She is laying in her bed as usual and reports persistent cough. She denies any nausea or vomiting. She has chronic dyspnea. OBJECTIVE: PHYSICAL EXAMINATION: VITAL SIGNS: Temperature 98.2 degrees Fahrenheit, heart rate 84 per minute and respiratory rate 18 per minute. Blood pressure 134/60 mm of mercury and oxygen saturation is between 97 and 100% on 2 liters oxygen. HEENT: Head is atraumatic. NECK: Supple and JVD is about 7 cm above the sternal angle. HEART: Irregular. LUNGS: Bilateral rhonchi and wheezing. ABDOMEN: Soft and nontender and bowel sounds are normal. EXTREMITIES: Without any cyanosis or clubbing. She has a permacath in her right upper chest. NEUROLOGICAL: She is at her baseline mentation. LABORATORY STUDIES: This morning labs showed a WBC count of 16.8, hemoglobin 9.0 and hematocrit 29.4 which is a significant drop compared to yesterday. A repeat hemoglobin is now 10.1 and hematocrit 33.7. Sodium is 130, potassium 4.7, BUN 27 and creatinine 4.73. Total protein 6.3 and albumin 3.0. PROBLEMS: 1. Congestive heart failure volume status is decompensated at present, however she is oxygenating up to 100% with 2 liters oxygen. I do not feel that she needs urgent dialysis today. We will plan to dialyze her tomorrow and we will try to remove about 3 liters of fluid as tolerated. I feel that she will probably need more frequent dialysis and ultrafiltration in order to optimize her volume status. 2. Hyponatremia mild hyponatremia related to end-stage renal disease and congestive heart failure. It is likely to improve with dialysis tomorrow and no other intervention is needed. She is not likely to respond to diuretics. 3. Cough and hypoxemia this is a chronic issue, and she does not seem to be able to clear her airways very well. She is being encouraged to continue getting out of bed more often and try to cough. She is receiving antibiotics, nebulizers, and steroids. 4. Anemia she did have a drop in hemoglobin, however a repeat one is at the baseline. Important thing to note is that on the her hemoglobin was 11.1, probably after dialysis when she had hemoconcentration due to fluid removal. I do not feel that she has any acute blood loss. She remains on anticoagulation due to atrial fibrillation. 5. Atrial fibrillation at present her ventricular rate is reasonably well controlled with Digoxin and she also remains on Eliquis. 6. Hypotension - blood pressure has been chronically low and she is on Midodrine 10 mg three times daily. 7. End-stage renal disease - The patient was dialyzed on Tuesday and we will plan to dialyze her again Tuesday morning.
[2020-10-26] MEDS: ATORVASTATIN 20 MG TAB PO SCH (21:15)
[2020-10-27] MEDS: VANCOMYCIN ORAL SOL 250MG/5ML ORAL SYRINGE PO SCH ×2 (00:06→06:41)
[2020-10-27 03:50] VITALS: BP 158/68
[2020-10-27] MEDS: IPRATROPIUM 0.5MG/ALBUTEROL 2.5MG INH SOL UD 3ML (DUONEB) NEB SCH ×7 (04:00→23:15)
[2020-10-27 05:27] LABS: BASO % 0.2 % (0.0-1.0); EOS % 0.2 % (0.0-3.0); HEMATOCRIT 28.6 % (36.0-47.0); HEMOGLOBIN 8.8 g/dl (12.0-15.5); LYMPH # 0.8 10^3/uL (1.5-5.0); LYMPH % 4.5 % (24.0-44.0); MEAN CORPUSCULAR HEMOGLOBIN 28.9 pg (27.0-33.0); MEAN CORPUSCULAR HGB CONC 30.8 g/dl (32.0-36.5); MEAN CORPUSCULAR VOLUME 94.1 fl (80.0-96.0); MONO # 1.1 10^3/uL (0.0-0.8); MONO % 5.7 % (2.0-8.0); NEUTROPHILS # 16.3 10^3/uL (1.5-8.5); NEUTROPHILS % 88.3 % (36.0-66.0); PLATELET COUNT, AUTOMATED 330 10^3/uL (150-450); RED BLOOD COUNT 3.04 10^6/uL (4.00-5.40); WHITE BLOOD COUNT 18.5 10^3/uL (4.0-10.0)
[2020-10-27 05:41] LABS: ALBUMIN 3.1 GM/DL (3.2-5.2); BILIRUBIN,TOTAL 0.3 MG/DL (0.2-1.0); CALCIUM LEVEL 8.9 MG/DL (8.8-10.2); CREATININE FOR GFR 5.62 MG/DL (0.55-1.30); GLOMERULAR FILTRATION RATE 7.9 (>39); POTASSIUM SERUM 5.5 MEQ/L (3.5-5.1); TOTAL PROTEIN 6.1 GM/DL (6.4-8.2)
[2020-10-27] MEDS: PANTOPRAZOLE 40MG TAB (PROTONIX) PO SCH (06:41)
[2020-10-27] MEDS: MIDODRINE 5 MG TAB PO SCH ×3 (06:41→16:44)
[2020-10-27] MEDS: LEVOTHYROXINE 125MCG TABLET (0.125MG) PO SCH (06:41)
[2020-10-27] MEDS: HEPARIN SOD (PORCINE) 5000UNITS/ML 1ML VIAL/SYRINGE SC SCH ×3 (06:41→20:39)
[2020-10-27] MEDS: CALCITRIOL 0.25 MCG CAP (S0169) PO SCH (06:41)
[2020-10-27] MEDS: CLOPIDOGREL 75 MG TAB PO SCH (06:42)
[2020-10-27] MEDS: DIGOXIN 0.125 MG TAB PO SCH (06:42)
[2020-10-27] MEDS: SYMBICORT 160/4.5MCG INHALER 6GM INH SCH ×2 (07:15→17:45)
[2020-10-27 08:00] VITALS: BP 152/64
[2020-10-27] MEDS: HumaLOG INSULIN (NovoLOG) PER UNIT SC SCH ×4 (08:26→20:57)
[2020-10-27] MEDS: LACTOBACILLUS ACIDOPHILUS CAP (BACID) PO SCH ×2 (09:00→20:38)
[2020-10-27] MEDS ORDERED: MEROPENEM INJ 500 MG in IV 1 EA IV SCH (09:00)
[2020-10-27] MEDS ORDERED: SLF 3 ML SYR IV PRN (09:30)
--- NOTE | 2020-10-27 12:32 | IPNPDOC ---
Text Note Date of Service The patient was seen on 10/27/20. NOTE Subjective: Patient is a 70-year-old female who initially presented to the [facility] with shortness of breath and was diagnosed with acute bronchitis and acute on chronic congestive heart failure. Patient says she is feeling mildly better. Patient's hemoglobin did drop. Patient denies having blood in her stool or dark tarry stools. Yesterday her stool occult blood was negative. Patient does appear more fluid overload and will be getting dialysis earlier today. Review of systems: General: Patient denies fevers HEENT: Patient denies headaches Cardiovascular: Patient denies chest pain Respiratory: Patient reports decreased shortness of breath and cough GI: Patient denies abdominal pain, nausea, vomiting, diarrhea : Patient denies increased frequency or pain with urination Extremities: Patient denies swelling or pain in extremities Neurological: Patient denies numbness or tingling in legs Physical exam: Vitals: See below General: Alert and oriented female patient who was sitting up in bed when I walked in. Patient on nasal cannula oxygen in place. Patient not appear to be in acute distress. HEENT: Normocephalic, atraumatic, moist mucous membranes. Neck: No lymphadenopathy or thyromegaly Cardiac: Regular rate and rhythm, no murmurs, normal S1, normal S2 Pulm: Bibasilar crackles with rattling heard with the patient breathing with rhonchi throughout lung aquino. These cleared with coughing. After the patient coughs, the lungs are clear to auscultation bilaterally in the upper lung aquino with crackles still in the bases. Abd: Nondistended, nontender to palpation, normal bowel sounds Ext: No edema bilateral lower extremities Labs: See below Imaging: No new imaging has been performed Assessment/plan: 70-year-old female presented with shortness of breath who was diagnosed with fluid overload secondary to CHF and end-stage renal disease 1. Dyspnea/acute bronchitis. This may be multifactorial secondary to COPD exacerbation on top of fluid overload. Patient may also be aspirating so speech therapy has been consulted for swallow evaluation. Due to the patient's leukocytosis, meropenem has been added for possible aspiration pneumonitis as patient has an allergy listed to cephalexin. We will continue to monitor and this will be done for 5 days. 2. End-stage renal disease. Continue with dialysis and I appreciate Dr. Shane's help treating the patient. 3. Acute on chronic congestive heart failure with preserved ejection fraction. Volume status regulated by dialysis. Patient will need dialysis today and ultrafiltration on Tuesday according to nephrology. 4. Asthma/COPD exacerbation. Continue inhalers and prednisone. 5. Hyponatremia. This may be secondary to fluid overload and/or digoxin use. 6. Hyperkalemia. This may be secondary to the patient's need for dialysis. Patient will be dialyzed today. 7. Coronary artery disease. Continue home medications. 8. Type 2 diabetes mellitus. Insulin sliding scale diabetic diet. 9. Hypothyroidism. Continue home levothyroxine. 10. Obesity with BMI of 36.8. Complicating patient's care. 11. GERD. Continue PPI. 12. Normocytic anemia/iron deficiency anemia. Hemoglobin did drop but stool occult blood was negative. Continue to monitor. 13. History of C. difficile colitis. P.o. vancomycin started outpatient. DVT Prophylaxis: Heparin Disposition: Pending clinical improvement, possible discharge later this week VS,Grayson, I+O VS, Grayson, I+O Laboratory Tests 10/26/20 13:21 10/27/20 04:43 10/27/20 04:44 Vital Signs Date Time Temp Pulse Resp B/P (MAP) Pulse Ox O2 Delivery O2 Flow Rate FiO2 10/27/20 08:31 2.0 10/27/20 08:00 97.4 60 22 152/64 (93) 100 Nasal Cannula I&O- Last 24 Hours up to 6 AM 10/27/20 06:00 Intake Total 1020 ml Output Total 0 ml Balance 1020 ml GLORIA WINCHESTER DO Oct 27, 2020 12:32
[2020-10-27 14:15] VITALS: BP 118/58
[2020-10-27 16:00] VITALS: BP 115/59
[2020-10-27] MEDS: predniSONE 20 MG TAB PO SCH (16:44)
[2020-10-27] MEDS: ASPIRIN 81MG ENTERIC TABLET PO SCH (16:45)
[2020-10-27] MEDS: SLF 3 ML SYR IV SCH ×2 (16:45→20:57)
[2020-10-27] MEDS: MEROPENEM INJ 500 MG in IV 1 EA IV SCH (16:46)
[2020-10-27 20:00] VITALS: BP 108/51
[2020-10-27] MEDS: ATORVASTATIN 20 MG TAB PO SCH (20:38)
--- NOTE | 2020-10-27 23:22 | IPNPDOC ---
Subjective CC/HPI The patient is a 70-year-old female admitted with a reason for visit of Fluid Overdose, Sob. Events since last encounter Pt was seen and examined during HD. She is still c/o cough with a lot of upper airway secretions but unable to bring up any sputum. General: Denies: ROS Unobtainable, Chills, Night Sweats, Fatigue, Malaise, Normal Appetite, Other Symptoms Constitutional: Denies: Chills, Fever, Malaise, Night Sweats, Weakness, Fatigue, Weight Loss, Lethargy, Other Eyes: Denies: Pain, Vision change, Conjunctivae inflammation, Eyelid inflammation, Redness, Other ENT: Denies: Head Aches, Ear Pain, Dysphagia, Sinus Congestion, Post Nasal Drip, Sore Throat, Epistaxis, Other Symptoms Skin: Denies: Rash, Lesions, Jaundice, Bruising, Itching, Dry, Breakdown, Nail Changes, Other Pulmonary: Reports: Dyspnea, Cough, Other Symptoms (upper airway secretions) Cardiovascular: Reports: Orthopnea; Denies: Chest Pain, Palpitations Gastrointestinal: Denies: Nausea, Vomiting, Abdominal Pain, Diarrhea, Constipation, Melena, Hematochezia, Other Symptoms Genitourinary: Denies: Dysuria, Frequency, Incontinence, Hematuria, Retention, Other Symptoms Hematologic: Denies: Bruising, Bleeding Excessively, Petecchia, Purpura, Enlarged Lymph Nodes, Other Hematologic Endocrine: Denies: Polydipsia, Polyphagia, Polyuria, Heat Intolerance, Cold Intolerance, Other Endocrine Sx Musculoskeletal: Denies: Neck Pain, Back Pain, Shoulder Pain, Arm Pain, Hand Pain, Leg Pain, Foot Pain, Joint Pain, Muscle Pain, Spasms, Other Symptoms Neurological: Denies: Weakness, Numbness, Incoordination, Change in speech, Confusion, Seizures, Other Symptoms Psych: Reports: Mood Normal Objective Physical Examination General Exam: Alert, No Acute Distress EYE EXAM: PERRLA, EOMI ENT EXAM: Atraumatic, Mucous membr. moist/pink Neck Exam: Supple, JVD (Moderate) Chest Exam: Normal air movement, Other (a lot of upper airway secretions and sounds) Heart Exam: Rate Normal, Normal S1, Normal S2 ABDOMEN EXAM: Normal bowel sounds, Soft; No: Tenderness Extremity Exam: No: Clubbing, Cyanosis, Edema Skin Exam: Nl turgor and temperature; No: Rash, Breakdown Neuro Exam: Normal Speech, Strength at 5/5 X4 ext, Reflexes 2+ Psych Exam: Mental status NL, Mood NL Vital Signs/I&O Vital Signs Date Time Temp Pulse Resp B/P (MAP) Pulse Ox O2 Delivery O2 Flow Rate FiO2 10/27/20 20:00 98.3 96 22 108/51 (70) 99 Nasal Cannula 2.0 I&O- Last 24 Hours up to 6 AM 10/27/20 06:00 Intake Total 1020 ml Output Total 0 ml Balance 1020 ml Laboratory Data Labs 24H Laboratory Tests 2 10/27/20 04:43: Immature Granulocyte % (Auto) 1.1, Neutrophils (%) (Auto) 88.3H, Lymphocytes (%) (Auto) 4.5L, Monocytes (%) (Auto) 5.7, Eosinophils (%) (Auto) 0.2, Basophils (%) (Auto) 0.2, Neutrophils # (Auto) 16.3H, Lymphocytes # (Auto) 0.8L, Monocytes # (Auto) 1.1H, Eosinophils # (Auto) 0.0, Basophils # (Auto) 0.0, Nucleated Red Blood Cells % (auto) 0.0 10/27/20 04:44: Anion Gap 9, Glomerular Filtration Rate 7.9L, Calcium Level 8.9, Magnesium Level 2.0, Total Bilirubin 0.3, Aspartate Amino Transf (AST/SGOT) 18, Alanine Aminotransferase (ALT/SGPT) 31, Alkaline Phosphatase 93, Total Protein 6.1L, Albumin 3.1L, Albumin/Globulin Ratio 1.0L 10/27/20 14:33: Bedside Glucose (Misc Panel) 103 10/27/20 20:52: Bedside Glucose (Misc Panel) 271H CBC/BMP Laboratory Tests 10/27/20 04:43 10/27/20 04:44 FSBS Laboratory Tests Test 10/27/20 14:33 10/27/20 20:52 Range/Units Bedside Glucose (Misc Panel) 103 271 83-110 MG/DL Current Medications Current Medications Medications (Trade) Dose Ordered Sig/Travis Route PRN Reason Start Time Stop Time Status Last Admin Dose Admin Acetaminophen (Tylenol Tab) 650 mg Q4H PRN PO MILD PAIN or TEMP > 101 10/21/20 04:20 Al Hydrox/Mg Hydrox/Simethicone (Mylanta) 30 ml DAILY PRN PO DYSPEPSIA 10/21/20 04:20 Albuterol Sulfate (Proventil Neb) 2.5 mg Q1HP PRN NEB SHORTNESS OF BREATH 10/21/20 05:25 Albuterol Sulfate (Proventil Neb) 2.5 mg QID INH 10/21/20 09:00 10/21/20 10:41 DC Albuterol/ Ipratropium (Duoneb (Ipr 0.5mg/Alb 2.5mg)) 3 ml RQ4H NEB 10/21/20 12:00 10/27/20 15:07 Albuterol/ Ipratropium (Duoneb (Ipr 0.5mg/Alb 2.5mg)) 3 ml RQ6H NEB 10/21/20 08:00 10/21/20 10:41 DC 10/21/20 07:40 Aspirin (Ecotrin) 81 mg DAILY PO 10/21/20 09:00 10/27/20 16:45 Atorvastatin Calcium (Lipitor) 40 mg QHS PO 10/21/20 21:00 10/27/20 20:38 Azithromycin (Zithromax Tab) 500 mg DAILY PO 10/22/20 09:00 10/25/20 09:01 DC 10/25/20 10:24 Budesonide/ Formoterol Fumarate (Symbicort 160/ 4.5mcg) 2 puff RBID INH 10/21/20 08:00 10/27/20 17:45 Calcitriol (Rocaltrol) 0.25 mcg DAILY PO 10/21/20 09:00 10/27/20 06:41 Clopidogrel Bisulfate (PLAVix) 75 mg DAILY PO 10/21/20 09:00 10/27/20 06:42 Dextrose (Dextrose 50%) 25 ml ASDIRECTED PRN IV SEE LABEL COMMENTS 10/21/20 04:20 Digoxin (Lanoxin) 0.125 mg DAILY PO 10/24/20 09:00 10/27/20 09:40 DC 10/27/20 06:42 Digoxin (Lanoxin) 0.125 mg MoWeFr@0900 PO 10/29/20 09:00 Furosemide (LASIX injection) 40 mg DAILY IV 10/22/20 09:00 10/23/20 11:09 DC Furosemide (LASIX injection) 40 mg Q4H IV 10/21/20 04:00 10/21/20 06:45 DC 10/21/20 04:00 Glucagon (Glucagon) 1 mg ASDIRECTED PRN SC SEE LABEL COMMENTS 10/21/20 04:20 Glucose (Glucose) 16 GM ASDIRECTED PRN PO SEE LABEL COMMENTS 10/21/20 04:20 Guaifenesin (Robitussin) 10 ml Q4H PRN PO CONGESTION 10/21/20 08:00 Heparin Sodium (Porcine) (Heparin) 5,000 units Q8H SC 10/21/20 14:00 10/27/20 20:39 Home Med (Home Med List Complete!) ASDIRECTED XX 10/21/20 09:25 10/21/20 09:41 DC Insulin Human Lispro (HumaLOG INSULIN) See Protocol Table AC SC 10/21/20 07:30 10/27/20 08:26 Insulin Human Lispro (HumaLOG INSULIN) See Protocol Table QHS SC 10/21/20 21:00 10/27/20 20:57 Lactobacillus Acidophilus (Bacid) 1 ea BID PO 10/21/20 09:00 10/27/20 20:38 Levothyroxine Sodium (Synthroid) 125 mcg DAILY@0600 PO 10/21/20 10:00 10/27/20 06:41 Magnesium Hydroxide (Milk Of Magnesia) 30 ml DAILY PRN PO CONSTIPATION 10/21/20 04:20 Meropenem 500 mg/ IV Miscellaneous Supplies 50 ml @ 100 mls/hr Q24H IV 10/27/20 09:00 10/27/20 16:31 DC Meropenem 500 mg/ IV Miscellaneous Supplies 50 ml @ 100 mls/hr Q24H IV 10/27/20 17:00 10/27/20 16:46 Methylprednisolone (SOLUmedrol) 125 mg STAT STAT IV 10/21/20 05:25 10/21/20 05:27 DC 10/21/20 05:25 Metoprolol Tartrate (Lopressor) 25 mg Q8H PO 10/21/20 14:00 10/23/20 11:09 DC 10/22/20 21:13 Midodrine (Proamatine) 10 mg TID@08,12,16 PO 10/21/20 12:00 10/27/20 16:44 Nitroglycerin (Nitrostat (1/ 150)) 0.4 mg Q5MP PRN SL CHEST PAIN 10/21/20 08:00 Pantoprazole Sodium (Protonix) 40 mg DAILY PO 10/21/20 09:00 10/27/20 06:41 Prednisone (Deltasone) 40 mg DAILY PO 10/21/20 09:00 10/27/20 16:44 Sodium Chloride (Saline Lock Flush) 2 ml ASDIRECTED PRN IV SEE LABEL COMMENTS 10/27/20 09:30 Sodium Chloride (Saline Lock Flush) 2 ml SLF IV 10/27/20 14:00 10/27/20 20:57 Vancomycin HCl (First-Vancomycin 50(Firvanq)- 250mg/5ml) 125 mg Q6H PO 10/21/20 12:00 10/27/20 11:59 DC 10/27/20 06:41 Allergies Coded Allergies: cephalexin (Verified Allergy, Severe, RASH, DYSPNEA, 11/05/19) gatifloxacin (Verified Allergy, Severe, RASH, DYSPNEA, 11/05/19) tramadol (Verified Allergy, Severe, RASH, DYSPNEA, 11/05/19) silver nitrate (Verified Allergy, Intermediate, HIVES, RASH, 11/05/19) chlorhexidine (Verified Allergy, Mild, RASH, 11/05/19) latex (Verified Allergy, Mild, RED, SWOLLEN, RASH, 11/05/19) nitrofurantoin (Verified Allergy, Mild, RASH, 11/05/19) sulfamethoxazole (Verified Adverse Reaction, Intermediate, EFFECTS KIDNEY FUNCTION, 11/05/19) trimethoprim (Verified Adverse Reaction, Intermediate, EFFECTS KIDNEY FUNCTION, 11/05/19) Assessment/Plan Date Seen The patient was seen on 10/27/20 at 23:17. Plan / VTE VTE Prophylaxis Ordered?: Yes Plan Orders past 48 Hours Orders Occult Blood Stool Specimen (10/26/20 06:57) * Nursing Order * (10/26/20 06:57) Hemoglobin & Hematocrit (10/26/20 13:00) Fingerstick Blood Sugar (10/26/20 12:10) Fingerstick Blood Sugar (10/26/20 17:00) Hemodialysis Acute Orders (10/26/20 19:06) Fingerstick Blood Sugar (10/26/20 20:48) Sodium Chloride Flush (Saline Lock Flush (10/27/20 14:00) Sodium Chloride Flush (Saline Lock Flush (10/27/20 09:30) St Bedside Swallow Eval (10/27/20 09:42) Digoxin (Lanoxin) (10/29/20 09:00) Meropenem Inj (Merrem) (10/27/20 09:00) Heparin (Heparin) (10/27/20 11:30) Heparin (Heparin) (10/27/20 11:30) Fingerstick Blood Sugar (10/27/20 14:33) Meropenem Inj (Merrem) (10/27/20 17:00) Renal Diet (10/27/20 Dinner) Fingerstick Blood Sugar (10/27/20 20:52) Plan Text ESRD on HD Chronic Hypotension Chronic Afib RLL Infiltrates and Cough h/o C Diff Anemia in ESRD Check swallow eval to r/o aspiration, Give Meropenem to cover for anaerobic infection, HD today with UF goal 2.5Kg, cont Midodrine. Oral vanco for one more week to prevent c diff recurrence. BETTY MILLER MD Oct 27, 2020 23:22
[2020-10-28] VITALS: BP 111/54
[2020-10-28] MEDS: IPRATROPIUM 0.5MG/ALBUTEROL 2.5MG INH SOL UD 3ML (DUONEB) NEB SCH ×3 (03:48→11:40)
[2020-10-28 04:00] VITALS: BP 114/64
[2020-10-28] MEDS: VANCOMYCIN ORAL SOL 250MG/5ML ORAL SYRINGE PO SCH ×4 (04:55→12:38)
[2020-10-28] MEDS: LEVOTHYROXINE 125MCG TABLET (0.125MG) PO SCH (05:51)
[2020-10-28] MEDS: SLF 3 ML SYR IV SCH ×2 (05:54→16:11)
[2020-10-28] MEDS: HEPARIN SOD (PORCINE) 5000UNITS/ML 1ML VIAL/SYRINGE SC SCH ×2 (05:54→14:00)
[2020-10-28 06:22] LABS: BASO # 0.1 10^3/uL (0.0-0.2); BASO % 0.3 % (0.0-1.0); HEMATOCRIT 31.2 % (36.0-47.0); HEMOGLOBIN 9.2 g/dl (12.0-15.5); LYMPH # 0.7 10^3/uL (1.5-5.0); LYMPH % 3.2 % (24.0-44.0); MEAN CORPUSCULAR HGB CONC 29.5 g/dl (32.0-36.5); MEAN CORPUSCULAR VOLUME 98.4 fl (80.0-96.0); MONO # 0.4 10^3/uL (0.0-0.8); MONO % 1.8 % (2.0-8.0); NEUTROPHILS # 21.6 10^3/uL (1.5-8.5); NEUTROPHILS % 93.5 % (36.0-66.0); PLATELET COUNT, AUTOMATED 280 10^3/uL (150-450); RED BLOOD COUNT 3.17 10^6/uL (4.00-5.40); WHITE BLOOD COUNT 23.1 10^3/uL (4.0-10.0)
[2020-10-28 06:34] LABS: ALBUMIN 2.8 GM/DL (3.2-5.2); BILIRUBIN,TOTAL 0.2 MG/DL (0.2-1.0); CREATININE FOR GFR 3.41 MG/DL (0.55-1.30); GLOMERULAR FILTRATION RATE 14.1 (>39); POTASSIUM SERUM 5.6 MEQ/L (3.5-5.1); TOTAL PROTEIN 6.9 GM/DL (6.4-8.2)
[2020-10-28] MEDS: SYMBICORT 160/4.5MCG INHALER 6GM INH SCH (07:16)
[2020-10-28 07:20] VITALS: BP 123/58
[2020-10-28] MEDS: CLOPIDOGREL 75 MG TAB PO SCH (09:49)
[2020-10-28] MEDS: HumaLOG INSULIN (NovoLOG) PER UNIT SC SCH ×2 (09:49→12:38)
[2020-10-28] MEDS: ASPIRIN 81MG ENTERIC TABLET PO SCH (09:49)
[2020-10-28] MEDS: PANTOPRAZOLE 40MG TAB (PROTONIX) PO SCH (09:50)
[2020-10-28] MEDS: CALCITRIOL 0.25 MCG CAP (S0169) PO SCH (09:50)
[2020-10-28] MEDS: MIDODRINE 5 MG TAB PO SCH ×3 (09:50→16:11)
[2020-10-28] MEDS: LACTOBACILLUS ACIDOPHILUS CAP (BACID) PO SCH (09:50)
[2020-10-28] MEDS ORDERED: LIDOCAINE 1% SDV 5ML VIAL SC PRN (10:05)
[2020-10-28 11:29] VITALS: BP 129/58
--- NOTE | 2020-10-28 12:18 | IPNPDOC ---
Text Note Date of Service The patient was seen on 10/28/20. NOTE Subjective: Patient is a 70-year-old female initially presented to hospital s hortness of breath was diagnosed with acute bronchitis and acute on chronic congestive heart failure. Patient is feeling mildly better today. Patient's white count continues to rise. Patient's electrolytes are abnormal. Patient did tolerate dialysis well yesterday. I did receive a message from the patient's cardiac surgeon about a wound in the patient's groin that they have been using a wound VAC. This patient was admitted and wanted an update. I did call and update the patient's cardiac surgeon about this. At this time, the patient is not complaining about any pain or difficulty with the wound. Review of systems: General: Patient denies fevers HEENT: Patient denies headaches Cardiovascular: Patient denies chest pain Respiratory: Patient reports improved shortness of breath, cough GI: Patient denies abdominal pain, nausea, vomiting, diarrhea : Patient denies increased frequency or pain with urination Extremities: Patient denies swelling or pain in extremities Neurological: Patient denies numbness or tingling in legs Physical exam: Vitals: See below General: Alert oriented female patient who was sitting in the bedside chair and walked in. Patient did not appear to be in any acute distress. HEENT: Normocephalic, atraumatic, moist mucous membranes. Neck: No lymphadenopathy or thyromegaly Cardiac: Regular rate and rhythm, no murmurs, normal S1, normal S2 Pulm: Clear to auscultation bilaterally. No wheezes, rhonchi, rales Abd: Nondistended, nontender to palpation, normal bowel sounds Ext: No edema bilateral lower extremities patient has a deep wound in the right inguinal area that has granulation tissue and no surrounding erythema Labs: See below Imaging: PA lateral chest was ordered but the read is still pending as of 1216 Assessment/plan: 70-year-old female presented with shortness of breath was diagnosed with fluid overload secondary to CHF and end-stage renal disease 1. Dyspnea/acute bronchitis. This may be multifactorial due to COPD exacerbation on top of fluid overload. Patient will continue with dialysis per nephrology. Swallow evaluation change diet to mechanical soft. Patient has increasing leukocytosis which may be secondary to steroids however, the patient's leukocytosis is 23,000. Patient was started on meropenem yesterday. Steroids have been stopped as the patient does not appear to be in exacerbation today. 2. End-stage renal disease. Continue with dialysis and I appreciate Dr. Shane's help treating the patient. 3. Right groin wound. I spoke with the patient's cardiac surgeon who suggested a wound VAC. Advanced wound care consult has been placed at this time. 4. Acute on chronic congestive heart failure preserved ejection fraction. Volume status regulated by dialysis. Patient received dialysis yesterday and will get dialysis again today. Patient echocardiogram performed on 08/21/2020 at [facility] in [place], [place] which showed a normal ejection fraction of 55 to 65%. 5. Asthma/COPD exacerbation. Continue inhalers. Prednisone has been stopped. Continue with chest PT. 6. Hyponatremia. Secondary to fluid overload. Will be dialyzed again today. 7. Hyperkalemia. Patient will get dialyzed again today. 8. Coronary artery disease. Continue home medications. 9. Type 2 diabetes. Insulin sliding scale and diabetic diet. 10. Hypothyroidism. Continue home levothyroxine. 11. Obesity with BMI 36.8. Complicating patient's care. 12. GERD. Continue PPI. 13. Normocytic anemia/iron deficiency anemia. Hemoglobin did drop a stool occult blood was negative. Continue to monitor. 14. History of C. difficile colitis. P.o. vancomycin was started outpatient was completed yesterday. DVT Prophylaxis: Heparin Disposition: Pending clinical improvement Late entry: Patient began to complain of chest pain while receiving dialysis. EKG was performed and was unchanged. Patient's troponins were within normal limits. We plan to trend troponins however, I did speak with the patient's cardiac surgeon who did accept the patient in transfer. Patient had transfer set up and was going to be transferred in the early evening. See discharge summary for more information. VS,Fishbone, I+O VS, Fishbone, I+O Laboratory Tests 10/28/20 05:27 Vital Signs Date Time Temp Pulse Resp B/P (MAP) Pulse Ox O2 Delivery O2 Flow Rate FiO2 10/28/20 11:29 97.5 77 20 129/58 (81) 99 Nasal Cannula 2.0 I&O- Last 24 Hours up to 6 AM 10/28/20 06:00 Intake Total 530 ml Output Total 2500 ml Balance -1970 ml GLORIA WINCHESTER DO Oct 28, 2020 12:18
--- NOTE | 2020-10-28 13:25 | REP ---
INDICATION: rhonchi on exam, leukocytosis COMPARISON: 10/20/2020. TECHNIQUE: Two views chest. FINDINGS: Elevated right hemidiaphragm is unchanged. The heart and mediastinum are unchanged. There are underlying fibrotic changes. There appears to be mild patchy superimposed atelectasis/infiltrate posteriorly and inferiorly. Multiple sternal wires are present. There is a right central venous catheter with the tip in the right atrium. IMPRESSION: Suspect mild patchy atelectasis or infiltrate posteriorly and inferiorly, superimposed on chronic changes. <Electronically signed by Ronny Garza > 10/28/20 [id number]
--- NOTE | 2020-10-28 13:28 | IPNPDOC ---
Subjective CC/HPI The patient is a 70-year-old female admitted with a reason for visit of Fluid Overdose, Sob. Events since last encounter She was dialyzed yesterday, still c/o sPB. Cough slightly better. Meropenem was started yesterday as well. Persistent leukocytosis noted. Swallow eval done. General: Denies: ROS Unobtainable, Chills, Night Sweats, Fatigue, Malaise, Normal Appetite, Other Symptoms Constitutional: Denies: Chills, Fever, Malaise, Night Sweats, Weakness, Fatigue, Weight Loss, Lethargy, Other Eyes: Denies: Pain, Vision change, Conjunctivae inflammation, Eyelid inflammation, Redness, Other ENT: Denies: Head Aches, Ear Pain, Dysphagia, Sinus Congestion, Post Nasal Drip, Sore Throat, Epistaxis, Other Symptoms Skin: Denies: Rash, Lesions, Jaundice, Bruising, Itching, Dry, Breakdown, Nail Changes, Other Pulmonary: Reports: Dyspnea, Cough Cardiovascular: Reports: Orthopnea; Denies: Chest Pain, Palpitations Gastrointestinal: Denies: Nausea, Vomiting, Abdominal Pain, Diarrhea, Constipation, Melena, Hematochezia, Other Symptoms Genitourinary: Denies: Dysuria, Frequency, Incontinence, Hematuria, Retention, Other Symptoms Hematologic: Denies: Bruising, Bleeding Excessively, Petecchia, Purpura, Enl arged Lymph Nodes, Other Hematologic Musculoskeletal: Denies: Neck Pain, Back Pain, Joint Pain, Muscle Pain, Spasms Neurological: Denies: Weakness, Numbness, Incoordination, Change in speech, Confusion, Seizures, Other Symptoms Psych: Reports: Mood Normal Objective Physical Examination General Exam: Alert, No Acute Distress EYE EXAM: PERRLA, EOMI ENT EXAM: Atraumatic, Mucous membr. moist/pink Neck Exam: Supple, JVD (Moderate) Chest Exam: Normal air movement, Other (a lot of upper airway secretions and sounds) Heart Exam: Rate Normal, Normal S1, Normal S2 ABDOMEN EXAM: Normal bowel sounds, Soft; No: Tenderness Extremity Exam: No: Clubbing, Cyanosis, Edema Skin Exam: Nl turgor and temperature; No: Rash, Breakdown Neuro Exam: Normal Speech, Strength at 5/5 X4 ext, Reflexes 2+ Psych Exam: Mental status NL, Mood NL Vital Signs/I&O Vital Signs Date Time Temp Pulse Resp B/P (MAP) Pulse Ox O2 Delivery O2 Flow Rate FiO2 10/28/20 11:29 97.5 77 20 129/58 (81) 99 Nasal Cannula 2.0 I&O- Last 24 Hours up to 6 AM 10/28/20 06:00 Intake Total 530 ml Output Total 2500 ml Balance -1970 ml Laboratory Data Labs 24H Laboratory Tests 2 10/27/20 14:33: Bedside Glucose (Misc Panel) 103 10/27/20 20:52: Bedside Glucose (Misc Panel) 271H 10/28/20 05:27: Immature Granulocyte % (Auto) 1.2, Neutrophils (%) (Auto) 93.5H, Lymphocytes (%) (Auto) 3.2L, Monocytes (%) (Auto) 1.8L, Eosinophils (%) (Auto) 0.0, Basophils (%) (Auto) 0.3, Neutrophils # (Auto) 21.6H, Lymphocytes # (Auto) 0.7L, Monocytes # (Auto) 0.4, Eosinophils # (Auto) 0.0, Basophils # (Auto) 0.1, Nucleated Red Blood Cells % (auto) 0.0, Anion Gap 9, Glomerular Filtration Rate 14.1L, Calcium Level 9.0, Magnesium Level 2.0, Total Bilirubin 0.2, Aspartate Amino Transf (AST/SGOT) 19, Alanine Aminotransferase (ALT/SGPT) 34, Alkaline Phosphatase 107, Total Protein 6.9, Albumin 2.8L, Albumin/Globulin Ratio 0.7L 10/28/20 12:06: Bedside Glucose (Misc Panel) 292H CBC/BMP Laboratory Tests 10/28/20 05:27 FSBS Laboratory Tests Test 10/27/20 14:33 10/27/20 20:52 10/28/20 12:06 Range/Units Bedside Glucose (Misc Panel) 103 271 292 83-110 MG/DL Current Medications Current Medications Medications (Trade) Dose Ordered Sig/Travis Route PRN Reason Start Time Stop Time Status Last Admin Dose Admin Acetaminophen (Tylenol Tab) 650 mg Q4H PRN PO MILD PAIN or TEMP > 101 10/21/20 04:20 Al Hydrox/Mg Hydrox/Simethicone (Mylanta) 30 ml DAILY PRN PO DYSPEPSIA 10/21/20 04:20 Albuterol Sulfate (Proventil Neb) 2.5 mg Q1HP PRN NEB SHORTNESS OF BREATH 10/21/20 05:25 Albuterol Sulfate (Proventil Neb) 2.5 mg QID INH 10/21/20 09:00 10/21/20 10:41 DC Albuterol/ Ipratropium (Duoneb (Ipr 0.5mg/Alb 2.5mg)) 3 ml RQ4H NEB 10/21/20 12:00 10/28/20 11:40 Albuterol/ Ipratropium (Duoneb (Ipr 0.5mg/Alb 2.5mg)) 3 ml RQ6H NEB 10/21/20 08:00 10/21/20 10:41 DC 10/21/20 07:40 Aspirin (Ecotrin) 81 mg DAILY PO 10/21/20 09:00 10/28/20 09:49 Atorvastatin Calcium (Lipitor) 40 mg QHS PO 10/21/20 21:00 10/27/20 20:38 Azithromycin (Zithromax Tab) 500 mg DAILY PO 10/22/20 09:00 10/25/20 09:01 DC 10/25/20 10:24 Budesonide/ Formoterol Fumarate (Symbicort 160/ 4.5mcg) 2 puff RBID INH 10/21/20 08:00 10/28/20 07:16 Calcitriol (Rocaltrol) 0.25 mcg DAILY PO 10/21/20 09:00 10/28/20 09:50 Clopidogrel Bisulfate (PLAVix) 75 mg DAILY PO 10/21/20 09:00 10/28/20 09:49 Dextrose (Dextrose 50%) 25 ml ASDIRECTED PRN IV SEE LABEL COMMENTS 10/21/20 04:20 Digoxin (Lanoxin) 0.125 mg DAILY PO 10/24/20 09:00 10/27/20 09:40 DC 10/27/20 06:42 Digoxin (Lanoxin) 0.125 mg MoWeFr@0900 PO 10/29/20 09:00 Furosemide (LASIX injection) 40 mg DAILY IV 10/22/20 09:00 10/23/20 11:09 DC Furosemide (LASIX injection) 40 mg Q4H IV 10/21/20 04:00 10/21/20 06:45 DC 10/21/20 04:00 Glucagon (Glucagon) 1 mg ASDIRECTED PRN SC SEE LABEL COMMENTS 10/21/20 04:20 Glucose (Glucose) 16 GM ASDIRECTED PRN PO SEE LABEL COMMENTS 10/21/20 04:20 Guaifenesin (Robitussin) 10 ml Q4H PRN PO CONGESTION 10/21/20 08:00 Heparin Sodium (Heparin) Please refer to ... ASDIRECTED XX 10/28/20 10:05 10/29/20 10:04 Heparin Sodium (Porcine) (Heparin) 5,000 units Q8H SC 10/21/20 14:00 10/28/20 05:54 Home Med (Home Med List Complete!) ASDIRECTED XX 10/21/20 09:25 10/21/20 09:41 DC Insulin Human Lispro (HumaLOG INSULIN) See Protocol Table AC SC 10/21/20 07:30 10/28/20 12:38 Insulin Human Lispro (HumaLOG INSULIN) See Protocol Table QHS SC 10/21/20 21:00 10/27/20 20:57 Lactobacillus Acidophilus (Bacid) 1 ea BID PO 10/21/20 09:00 10/28/20 09:50 Levothyroxine Sodium (Synthroid) 125 mcg DAILY@0600 PO 10/21/20 10:00 10/28/20 05:51 Lidocaine HCl (Lidocaine 1% Sdv) 0.5 ml ASDIRECTED PRN SC SEE LABEL COMMENTS 10/28/20 10:05 10/29/20 10:04 Magnesium Hydroxide (Milk Of Magnesia) 30 ml DAILY PRN PO CONSTIPATION 10/21/20 04:20 Meropenem 500 mg/ IV Miscellaneous Supplies 50 ml @ 100 mls/hr Q24H IV 10/27/20 09:00 10/27/20 16:31 DC Meropenem 500 mg/ IV Miscellaneous Supplies 50 ml @ 100 mls/hr Q24H IV 10/27/20 17:00 10/27/20 16:46 Methylprednisolone (SOLUmedrol) 125 mg STAT STAT IV 10/21/20 05:25 10/21/20 05:27 DC 10/21/20 05:25 Metoprolol Tartrate (Lopressor) 25 mg Q8H PO 10/21/20 14:00 10/23/20 11:09 DC 10/22/20 21:13 Midodrine (Proamatine) 10 mg TID@08,12,16 PO 10/21/20 12:00 10/28/20 09:50 Nitroglycerin (Nitrostat (1/ 150)) 0.4 mg Q5MP PRN SL CHEST PAIN 10/21/20 08:00 Pantoprazole Sodium (Protonix) 40 mg DAILY PO 10/21/20 09:00 10/28/20 09:50 Prednisone (Deltasone) 40 mg DAILY PO 10/21/20 09:00 10/28/20 08:40 DC 10/27/20 16:44 Sodium Chloride (Saline Lock Flush) 2 ml ASDIRECTED PRN IV SEE LABEL COMMENTS 10/27/20 09:30 Sodium Chloride (Saline Lock Flush) 2 ml SLF IV 10/27/20 14:00 10/28/20 05:54 Vancomycin HCl (First-Vancomycin 50(Firvanq)- 250mg/5ml) 125 mg Q6H PO 10/21/20 12:00 10/27/20 11:59 DC 10/27/20 06:41 Vancomycin HCl (First-Vancomycin 50(Firvanq)- 250mg/5ml) 125 mg Q6H PO 10/28/20 00:00 11/03/20 00:00 10/28/20 12:38 Allergies Coded Allergies: cephalexin (Verified Allergy, Severe, RASH, DYSPNEA, 11/05/19) gatifloxacin (Verified Allergy, Severe, RASH, DYSPNEA, 11/05/19) tramadol (Verified Allergy, Severe, RASH, DYSPNEA, 11/05/19) silver nitrate (Verified Allergy, Intermediate, HIVES, RASH, 11/05/19) chlorhexidine (Verified Allergy, Mild, RASH, 11/05/19) latex (Verified Allergy, Mild, RED, SWOLLEN, RASH, 11/05/19) nitrofurantoin (Verified Allergy, Mild, RASH, 11/05/19) sulfamethoxazole (Verified Adverse Reaction, Intermediate, EFFECTS KIDNEY FUNCTION, 11/05/19) trimethoprim (Verified Adverse Reaction, Intermediate, EFFECTS KIDNEY FUNCTION, 11/05/19) Assessment/Plan Date Seen The patient was seen on 10/28/20 at 13:24. Plan / VTE VTE Prophylaxis Ordered?: Yes Plan Orders past 48 Hours Orders Fingerstick Blood Sugar (10/26/20 17:00) Hemodialysis Acute Orders (10/26/20 19:06) Fingerstick Blood Sugar (10/26/20 20:48) Sodium Chloride Flush (Saline Lock Flush (10/27/20 14:00) Sodium Chloride Flush (Saline Lock Flush (10/27/20 09:30) St Bedside Swallow Eval (10/27/20 09:42) Digoxin (Lanoxin) (10/29/20 09:00) Meropenem Inj (Merrem) (10/27/20 09:00) Heparin (Heparin) (10/27/20 11:30) Heparin (Heparin) (10/27/20 11:30) Fingerstick Blood Sugar (10/27/20 14:33) Meropenem Inj (Merrem) (10/27/20 17:00) Fingerstick Blood Sugar (10/27/20 20:52) Vancomycin Hcl (First-Vancomycin 50(Firv (10/28/20 00:00) Chest, 2 View Pa, Lat (10/28/20 08:48) Chest Pt (10/28/20 08:48) Renal Diet (10/28/20 Breakfast) Advanced Wound Care Consult (10/28/20 09:56) Hemodialysis Acute Orders (10/28/20 10:01) Heparin (Heparin) (10/28/20 10:05) Lidocaine 1% Sdv (Lidocaine 1% Sdv) (10/28/20 10:05) Obtain Old Records Inpatient (10/28/20 12:06) Fingerstick Blood Sugar (10/28/20 12:06) Plan Text ESRD on HD Chronic Hypotension Chronic Afib RLL Infiltrates and Cough h/o C Diff Anemia in ESRD CHF and fluid overload. Hyperkalemia Diet changed to soft mechanical, cont Meropenem to cover for anaerobic infection, HD again today with UF goal 2.5Kg, cont Midodrine. Oral vanco for one more week to prevent c diff recurrence. BETTY MILLER MD Oct 28, 2020 13:28
[2020-10-28] MEDS ORDERED: ASPIRIN 81 MG CHEW TABLET PO ONE (14:15)
[2020-10-28] MEDS ORDERED: ASPIRIN 81 MG CHEW TABLET As Ordered ONE (14:19)
[2020-10-28 14:30] VITALS: BP 78/54; PULSE 103
[2020-10-28 15:28] LABS: MB/CK RELATIVE INDEX 17.65 (< OR =4); TROPONIN I 0.03 NG/ML (< 0.10)
[2020-10-28 16:00] VITALS: BP 102/56
--- NOTE | 2020-10-28 16:08 | ECGEPIP ---
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
--- NOTE | 2020-10-28 16:25 | DS.PDOC ---
Discharge Summary General Date of Admission Oct 20, 2020 at 22:08 Date of Discharge 10/28/2020 Primary Care Physician: Coco Trotter Attending Physician: GLORIA WINCHESTER DO Specialist/Consultants Involve: BETTY MILLER MD Specialist/Consultants Involve Scar Marcial MD nephrology Discharge Summary PROCEDURES PERFORMED DURING STAY: None. ADMITTING DIAGNOSES: 1. Dyspnea and cough. 2. ESRD 3. Acute on chronic heart failure preserved ejection fraction 4. Acute asthma exacerbation 5. Chronic coronary artery disease status post stenting/CABG 6. Insulin-dependent diabetes mellitus 7. Hypothyroidism 8. Hypotension 9. Class III obesity DISCHARGE DIAGNOSES: 1. Dyspnea/acute bronchitis. 2. Chest pain 3. End-stage renal disease 4. Right groin wound 5. Acute on chronic congestive heart failure preserved ejection fraction 6. Asthma/COPD exacerbation 7. Hyponatremia 8. Hyperkalemia 9. Coronary artery disease status post CABG 10. Type 2 diabetes mellitus 11. Hypothyroidism 12. Class II obesity with BMI of 36.8 13. GERD 14. Normocytic anemia 15. History of C. difficile colitis COMPLICATIONS/CHIEF COMPLAINT: Fluid Overdose, Sob. HISTORY OF PRESENT ILLNESS: Patient is a 70-year-old female who presented with a dry cough. Patient is a patient of the [facility] home for rehab reports being seen by Dr. Davis but she does not think that she was given any medications for her cough. Per the ED provider the patient was on antibiotics but did not improve despite the antibiotics. Patient also reported feeling more short of breath when she tries to walk up the stairs and feels like she is choking if she tries to lie down flat on her back without a pillow behind her head. She has been using her inhalers more often and thinks this might help her cough and shortness of breath. Ms. Duran denied having fevers or chills, denied chest pain, denied feeling like her legs were swollen, denied feeling like she was wheezing and denied drinking more fluids than usual. After dialysis yesterday, 10/20/2020, patient was sent to the ER for evaluation. She had a that she was told that she would need to receive dialysis 2 days in a row HOSPITAL COURSE: Patient was admitted for a congestive heart failure e xacerbation. Patient has end-stage renal disease and required hemodialysis. We work closely with nephrology who worked to try to dialyze the patient and make the patient more euvolemic. Patient was having issues with hypotension earlier in her hospitalization and the patient's metoprolol was changed to digoxin in order to maintain adequate rate control for her atrial fibrillation. Patient did have an episode where she had atrial fibrillation with a rapid ventricular response requiring digoxin. Patient was also put on midodrine for the hypotension which resolved. Patient did become more euvolemic on hospital course day 3 into day 4. Patient continue to be rhonchorous throughout her hospitalization and require chest PT and respiratory therapy to work with her for Acapella therapy. Patient was started on prednisone on her admission for possible asthma/COPD exacerbation as well. Patient had a CT scan that showed possible bronchitis or pneumonia so a course of azithromycin was given. Patient was started on vancomycin outpatient by her primary care provider as she has a history of C. difficile colitis. Vancomycin was continued until after her course of azithromycin. On hospital day 5, patient began to appear more fluid overloaded and as the patient's hospitalization continued into day 7, patient's white blood cell count continues to rise. Patient's vital signs however, remained stable. Patient's electrolytes began to become abnormal with her sodium becoming low and her potassium being high. Patient required more frequent dialysis in order to try to correct these electrolytes. Patient's prednisone was stopped on 10/27/2020 as she had received a 7-day course of this. Patient had a speech therapy eval on this day which recommended mechanical soft diet and thin liquids. Patient was also placed on IV meropenem 500 mg daily for dialysis dosing. On 10/28/2020, I received a call from patient's cardiac surgeon Dr. Anthony who wanted an update on the patient and also was asking about a wound in the right groin that was from when a pseudoaneurysm was corrected during a surgical procedure in July 2020. The patient's wound continued to be about the same as what it was described by Dr. Anthony and he recommended wound VAC placement. A consultation was placed for our advanced wound care doctor Dr. Mendes however, while on dialysis on 10/28/2020, the patient began to report 7/10 chest pain in the middle of her chest and was feeling more short of breath. Patient did have an episode of hypotension but did receive a fluid bolus which resolved the hypotension. I did speak with nephrology who wanted to attempt to take valve 1.5 L off the patient however, the patient continued to have chest pain and dialysis was stopped early. Patient's initial EKG was similar to EKG from 10/21/2020 showing a left bundle branch block. The patient's heart rate had increased to 100 compared to the EKG from 10/21/2020. I called back down to Dr. Anthony who earlier in the day stated that if the need arises, the patient be transferred to [facility] so that her cardiac team can take care of her. Now the patient was having chest pain, the process of transferring the patient to [facility] was started. Once a bed becomes available, the patient will be transferred to [facility]. In the meantime, patient will have every 6 hours troponins with EKGs. Patient received 324 mg of aspirin on 10/28/2020 as well as her Plavix. Patient was transferred to [facility] on 10/28/2020 via ambulance. DISCHARGE MEDICATIONS: Please see below. ALLERGIES: Please see below. PHYSICAL EXAMINATION ON DISCHARGE: VITAL SIGNS: Please see below. General: Alert and oriented female patient who was resting getting dialysis when I walked into the room. Patient appeared tired but not in any acute distress. HEENT: Normocephalic, atraumatic, moist mucous membranes. Neck: No lymphadenopathy or thyromegaly Cardiac: Irregularly irregular rhythm with heart rate around 100, no murmurs, normal S1, normal S2 Pulm: Bibasilar crackles with rhonchi throughout the lung aquino that would clear with coughing Abd: Nondistended, nontender to palpation, normal bowel sounds Ext: No edema bilateral lower extremities LABORATORY DATA: Please see below. IMAGING: Chest x-ray performed on 10/20/2020 was reported to show hypoinflated lungs with patchy bilateral lung opacities which may represent infiltrates, with underlying pleural effusions, overall similar in extent given differences in degree of lung inflation. CT of the chest performed without contrast on 10/22/2020 was reported to show right lower lobe consolidation consistent with pneumonia versus atelectasis or likely a combination of both. Follow-up is recommended. Chronic lung field changes and exam limitations as described as respiratory motion artifact in the lung field hypoexpansion. A curvilinear and nodular density is again seen in the inferior lingula status quo. PA and lateral chest x-ray performed on 10/28/2020 is reported to show suspect mild patchy atelectasis or infiltrate posteriorly and inferiorly, superimposed on chronic changes PROGNOSIS: Fair ACTIVITY: As tolerated. DIET: 2 g sodium DISCHARGE PLAN: Transfer to [facility] DISPOSITION: Transfer to [facility] in [place], [place] DISCHARGE INSTRUCTIONS: 1. Follow-up with the providers at [facility]. ITEMS TO FOLLOWUP ON ON OUTPATIENT: 1. None. DISCHARGE CONDITION: Stable. TIME SPENT ON DISCHARGE: 35 minutes. Vital Signs/I&Os Vital Signs Date Time Temp Pulse Resp B/P (MAP) Pulse Ox O2 Delivery O2 Flow Rate FiO2 10/28/20 11:29 97.5 77 20 129/58 (81) 99 Nasal Cannula 2.0 I&O- Last 24 Hours up to 6 AM 10/28/20 06:00 Intake Total 530 ml Output Total 2500 ml Balance -1970 ml Laboratory Data Labs 24H Laboratory Tests 2 10/27/20 20:52: Bedside Glucose (Misc Panel) 271H 10/28/20 05:27: Immature Granulocyte % (Auto) 1.2, Neutrophils (%) (Auto) 93.5H, Lymphocytes (%) (Auto) 3.2L, Monocytes (%) (Auto) 1.8L, Eosinophils (%) (Auto) 0.0, Basophils (%) (Auto) 0.3, Neutrophils # (Auto) 21.6H, Lymphocytes # (Auto) 0.7L, Monocytes # (Auto) 0.4, Eosinophils # (Auto) 0.0, Basophils # (Auto) 0.1, Nucleated Red Blood Cells % (auto) 0.0, Anion Gap 9, Glomerular Filtration Rate 14.1L, Calcium Level 9.0, Magnesium Level 2.0, Total Bilirubin 0.2, Aspartate Amino Transf (AST/SGOT) 19, Alanine Aminotransferase (ALT/SGPT) 34, Alkaline Phosphatase 107, Total Protein 6.9, Albumin 2.8L, Albumin/Globulin Ratio 0.7L 10/28/20 12:06: Bedside Glucose (Misc Panel) 292H 10/28/20 14:10: Total Creatine Kinase 17L, Creatine Kinase MB 3.0, Creatine Kinase MB Relative Index 17.65H, Troponin I 0.03 CBC/BMP Laboratory Tests 10/28/20 05:27 FSBS Laboratory Tests Test 10/27/20 20:52 10/28/20 12:06 Range/Units Bedside Glucose (Misc Panel) 271 292 83-110 MG/DL Microbiology Microbiology 10/26/20 Stool Occult Blood (NAWAF) - Final, Complete 10/21/20 Respiratory Virus Panel (PCR) (NAWAF) - Final, Complete Discharge Medications Scheduled Aspirin (Aspirin EC) 81 Mg Tab, 81 MG PO DAILY, (Reported) Atorvastatin Calcium (Atorvastatin Calcium) 40 Mg Tab, 40 MG PO QHS, (Reported) Budesonide/Formoterol (Symbicort 160-4.5 Mcg Inhaler) 6 Gm Hfa.aer.ad, 2 PUFF INH BID, (Reported) Calcitriol (Calcitriol) 0.25 Mcg Cap, 0.25 MCG PO DAILY, (Reported) Clopidogrel Bisulfate (Clopidogrel) 75 Mg Tablet, 75 MG PO DAILY, (Reported) Digoxin (Digoxin) 125 Mcg Tablet, 0.125 MG PO MoWeFr@0900 Insulin Lispro (Insulin Lispro) 100 Unit/1 Ml Vial, 1 DOSE SC AC, (Reported) SLIDING SCALE: 151-200 GIVE 2 UNITS 201-250 GIVE 4 UNITS 251-300 GIVE 6 UNITS 301-350 GIVE 8 UNITS 351-400 GIVE 10 UNITS 401-450 GIVE 12 UNITS L.acidoph/L.bulg/B.bif/S.therm (Bacid Caplet) 1 Each Tablet, 1 TAB PO BID, (Reported) Levothyroxine Sodium (Levothyroxine Sodium) 125 Mcg Tablet, 125 MCG PO DAILY, (Reported) Midodrine HCl (Midodrine HCl) 10 Mg Tablet, 10 MG PO TID, (Reported) Vancomycin Hcl (Vancomycin HCl) 125 Mg Capsule, 125 MG PO QID, (Reported) END DATE 10/25/20 Scheduled PRN Acetaminophen (Tylenol) 325 Mg Tablet, 650 MG PO Q6HP PRN for PAIN LEVEL 1-5, ( Reported) Albuterol Sulfate (Ventolin Hfa) 108 Mcg/Act Aer, 2 PUFFS INH Q4H PRN for SHORTNESS OF BREATH, (Reported) Guaifenesin (Guaifenesin) 100 Mg/5 Ml Liquid, 100 MG PO Q4H PRN for CONGESTION, (Reported) Nitroglycerin (Nitrostat) 0.4 Mg Subl, 0.4 MG SL NITRO PRN for CHEST PAIN, (Reported) Allergies Coded Allergies: cephalexin (Verified Allergy, Severe, RASH, DYSPNEA, 11/05/19) gatifloxacin (Verified Allergy, Severe, RASH, DYSPNEA, 11/05/19) tramadol (Verified Allergy, Severe, RASH, DYSPNEA, 11/05/19) silver nitrate (Verified Allergy, Intermediate, HIVES, RASH, 11/05/19) chlorhexidine (Verified Allergy, Mild, RASH, 11/05/19) latex (Verified Allergy, Mild, RED, SWOLLEN, RASH, 11/05/19) nitrofurantoin (Verified Allergy, Mild, RASH, 11/05/19) sulfamethoxazole (Verified Adverse Reaction, Intermediate, EFFECTS KIDNEY FUNCTION, 11/05/19) trimethoprim (Verified Adverse Reaction, Intermediate, EFFECTS KIDNEY FUNCTION, 11/05/19) GLORIA WINCHESTER DO Oct 28, 2020 16:24
[2020-10-28] MEDS: MEROPENEM INJ 500 MG in IV 1 EA IV SCH (17:28)
[2020-10-28] MEDS ORDERED: DIGO0.123 PO (17:50)
[2020-10-29] MEDS ORDERED: DIGOXIN 0.125 MG TAB PO SCH (09:00)
== END 2020-10-28 18:38 | disposition short-term general hospital (02) | DRG 291 ==
LOC: M ED 22:07 → M ED INP 22:08 → M MSPAV 10-21 22:50 → M PCU 10-22 13:26
PROVIDERS: ADMIT Internal Medicine; ATTEND Internal Medicine
PROC: 5A1D70Z Performance of Urinary Filtration, Intermittent, Less than 6 Hours Per Day (ICD-10-PCS; principal; 2020-10-22)
DX: I50.33 Acute on chronic diastolic (congestive) heart failure (principal); N18.6 End stage renal disease; J18.9 Pneumonia, unspecified organism; J45.901 Unspecified asthma with (acute) exacerbation; Z68.41 Body mass index [BMI] 40.0-44.9, adult; J44.1 Chronic obstructive pulmonary disease with (acute) exacerbation; E87.1 Hypo-osmolality and hyponatremia; E66.9 Obesity, unspecified; J20.9 Acute bronchitis, unspecified; E87.5 Hyperkalemia; I25.10 Atherosclerotic heart disease of native coronary artery without angina pectoris; Z95.1 Presence of aortocoronary bypass graft; E11.51 Type 2 diabetes mellitus with diabetic peripheral angiopathy without gangrene; E03.9 Hypothyroidism, unspecified; K21.9 Gastro-esophageal reflux disease without esophagitis; D50.9 Iron deficiency anemia, unspecified; Z79.899 Other long term (current) drug therapy; Z79.82 Long term (current) use of aspirin; Z79.4 Long term (current) use of insulin; Z88.8 Allergy status to other drugs, medicaments and biological substances; Z91.040 Latex allergy status; Z88.2 Allergy status to sulfonamides; I27.20 Pulmonary hypertension, unspecified; K57.30 Diverticulosis of large intestine without perforation or abscess without bleeding; G47.33 Obstructive sleep apnea (adult) (pediatric); I48.91 Unspecified atrial fibrillation; I95.9 Hypotension, unspecified

== ENCOUNTER 2020-11-05 14:50 | Emergency (ER) | payer MEDICARE ==
[~2020-11-05] VITALS: Ht 142.2 cm; Wt 86.8 kg
[~2020-11-05 14:50] MED LIST changes: +DIGO0.123 PO; +GUAI100S51 PO; +INSU100V2 SC; +METO1TAB87 PO; +VANC125C3 PO
--- NOTE | 2020-11-05 16:15 | REP ---
INDICATION: Syncope. COMPARISON: Comparison head CT study November 05, 2019. TECHNIQUE: Helical scanning is acquired. 5 mm axial images were reformatted. Coronal MPR images were generated. FINDINGS: Digital preliminary bread baker radiograph is unremarkable. The bony calvarium is intact. Visualized paranasal sinuses are clear except for the right maxillary sinus which is largely opacified by mucosal thickening. This is a new finding compared with the November 05, 2019 study. No intraorbital abnormality is seen. On soft tissue window settings, there is mild generalized volume loss. Moderate small vessel atherosclerotic changes are seen in the periventricular white matter of the supratentorial brain. There is some vascular calcification again noted. The small vessel changes are stable. There is no evidence of intracranial hemorrhage. No mass, extra-axial fluid collection, or midline shift is observed. IMPRESSION: Generalized volume loss, vascular calcification, and moderate small vessel changes again noted. No acute intracranial abnormality. There is right maxillary sinusitis. <Electronically signed by Yang Hurt > 11/05/20 [id number]
[2020-11-05 16:22] LABS: BASO # 0.2 10^3/uL (0.0-0.2); BASO % 0.5 % (0.0-1.0); EOS # 0.3 10^3/uL (0.0-0.5); EOS % 0.8 % (0.0-3.0); HEMATOCRIT 28.3 % (36.0-47.0); HEMOGLOBIN 8.5 g/dl (12.0-15.5); LYMPH # 0.8 10^3/uL (1.5-5.0); LYMPH % 2.2 % (24.0-44.0); MEAN CORPUSCULAR HEMOGLOBIN 29.3 pg (27.0-33.0); MEAN CORPUSCULAR VOLUME 97.6 fl (80.0-96.0); MONO # 1.1 10^3/uL (0.0-0.8); MONO % 3.2 % (2.0-8.0); NEUTROPHILS # 31.1 10^3/uL (1.5-8.5); NEUTROPHILS % 89.9 % (36.0-66.0); PLATELET COUNT, AUTOMATED 272 10^3/uL (150-450)
[2020-11-05 16:23] LABS: WHITE BLOOD COUNT 34.6 10^3/uL (4.0-10.0)
[2020-11-05 16:25] LABS: RSV AMPLIFICATION NEGATIVE (NEGATIVE)
--- NOTE | 2020-11-05 18:37 | REP ---
INDICATION: leukocytosis. COMPARISON: 10/28/2020 PA and lateral views TECHNIQUE: Portable FINDINGS: The technique utilized in obtaining the radiograph has magnified the cardiac silhouette and accentuated the interstitial markings. The cardiomediastinal silhouette is unchanged. Lung aquino are hypoexpanded. There is cardiomegaly accentuated by technique status quo. There are left basilar opacities which may have increased from the prior exam the central venous catheter tip is unchanged. Note is again made of previous median sternotomy. There is no change in the osseous structures. IMPRESSION: Possible increased left basilar opacities. The examinations are technically different. The prior exam included a lateral view. <Electronically signed by Jayant Jordan > 11/05/20 [id number]
--- NOTE | 2020-11-05 19:13 | REP ---
INDICATION: right thigh in area of packing ?deep abscess. COMPARISON: None. TECHNIQUE: Real-time sonographic evaluation to assess for abscess FINDINGS: The exam is limited due to the packing. There is a large area of shadowing. IMPRESSION: An abscess cannot be ruled out. Contrast-enhanced CT is recommended. <Electronically signed by Jayant Jordan > 11/05/20 [id number]
--- NOTE | 2020-11-05 19:53 | REPVR ---
PROCEDURE INFORMATION: Exam: CT Chest Without Contrast; Diagnostic Exam date and time: 11/05/2020 7:14 PM Age: 70 years old Clinical indication: Cough TECHNIQUE: Imaging protocol: Diagnostic computed tomography of the chest without contrast. Radiation optimization: All CT scans at this facility use at least one of these dose optimization techniques: automated exposure control; mA and/or kV adjustment per patient size (includes targeted exams where dose is matched to clinical indication); or iterative reconstruction. COMPARISON: CT Chest without contrast 10/22/2020 1:18 PM FINDINGS: Lungs: Bibasilar atelectasis. Pleural spaces: Small bilateral pleural effusions. Heart: Cardiomegaly. There is severe atherosclerotic calcification of the coronary arteries. Status post CABG. Aorta: Unremarkable. No aortic aneurysm. Lymph nodes: Multiple small mediastinal lymph nodes likely postinflammatory. Bones/joints: Marked degenerative changes in the left glenohumeral joint. Status post sternotomy. Soft tissues: Unremarkable. Other findings: Bandlike parenchymal opacity in the lingular lobe stable in appearance in comparison to the prior study. IMPRESSION: 1. Small bilateral pleural effusions. 2. Cardiomegaly. 3. Status post CABG. 4. Stable appearance of the parenchyma in comparison to the prior exam of 10/22/2020. Electronically signed by: Pito Owen On 11/05/2020 19:52:51 PM
--- NOTE | 2020-11-05 19:57 | REPVR ---
PROCEDURE INFORMATION: Exam: CT Abdomen And Pelvis Without Contrast Exam date and time: 11/05/2020 7:14 PM Age: 70 years old Clinical indication: Other: Leukocytosis TECHNIQUE: Imaging protocol: Computed tomography of the abdomen and pelvis without contrast. Radiation optimization: All CT scans at this facility use at least one of these dose optimization techniques: automated exposure control; mA and/or kV adjustment per patient size (includes targeted exams where dose is matched to clinical indication); or iterative reconstruction. COMPARISON: CT ABD PELVIS WITH CONTRAST 10/10/2020 8:07 PM FINDINGS: Liver: Normal. No mass. Gallbladder and bile ducts: Hydropic gallbladder which is otherwise unremarkable. Pancreas: There is diffuse pancreatic atrophy. Spleen: Normal. No splenomegaly. Adrenal glands: Normal. No mass. Kidneys and ureters: Normal. No hydronephrosis. Stomach and bowel: Moderate diverticulosis is present in the colon. No diverticulitis. Appendix: No evidence of appendicitis. Intraperitoneal space: Unremarkable. No free air. No significant fluid collection. Vasculature: The aortoiliac vessels demonstrate mild atherosclerotic calcification. Lymph nodes: Unremarkable. No enlarged lymph nodes. Urinary bladder: Unremarkable as visualized. Reproductive: Unremarkable as visualized. Bones/joints: Mild anterolisthesis of L3 on L4.The spine demonstrates moderate degenerative changes. [id number] central spinal stenosis L2-L3, severe central spinal stenosis L3-L4 and L4-L5. Scoliosis. Soft tissues: Unremarkable. Other findings: Osteoporosis. IMPRESSION: 1. There is diffuse pancreatic atrophy. 2. Moderate diverticulosis is present in the colon. No diverticulitis. Electronically signed by: Pito Owen On 11/05/2020 19:57:02 PM
[2020-11-05 20:31] LABS: ALBUMIN 2.6 GM/DL (3.2-5.2); ALT/SGPT 27 U/L (12-78); BILIRUBIN,DIRECT < 0.1 MG/DL (0.0-0.2); BILIRUBIN,TOTAL 0.4 MG/DL (0.2-1.0); BLOOD UREA NITROGEN 12 MG/DL (7-18); CALCIUM LEVEL 8.7 MG/DL (8.8-10.2); CARBON DIOXIDE LEVEL 27 MEQ/L (21-32); CHLORIDE LEVEL 101 MEQ/L (98-107); CK-MB VALUE MASS 2.2 NG/ML (<3.6); CPK CREATINE PHOSPHOKINASE 50 U/L (26-192); CREATININE FOR GFR 2.84 MG/DL (0.55-1.30); FREE T4 1.54 NG/DL (0.76-1.46); GLOMERULAR FILTRATION RATE 17.4 (>39); GLUCOSE, FASTING 109 MG/DL (70-100); LIPASE 216 U/L (73-393); MAGNESIUM LEVEL 1.7 MG/DL (1.8-2.4); POTASSIUM SERUM 5.2 MEQ/L (3.5-5.1); SODIUM LEVEL 135 MEQ/L (136-145); TOTAL PROTEIN 5.8 GM/DL (6.4-8.2); TROPONIN I 0.04 NG/ML (< 0.10)
[2020-11-05] MEDS ORDERED: ISOVUE-370 76% 100ML VIAL As Ordered ONE (21:48)
[2020-11-05] MEDS ORDERED: TORS20TA2 PO (23:19)
[2020-11-05] MEDS ORDERED: METO1TAB87 PO (23:19)
[2020-11-05] MEDS ORDERED: LANTINJ4 SC (23:19)
[2020-11-05] MEDS ORDERED: FERR325T18 PO (23:19)
[2020-11-05] MEDS ORDERED: OMEP1CAP73 PO (23:19)
[2020-11-05] MEDS ORDERED: D31000TA2 PO (23:19)
[2020-11-05] MEDS ORDERED: HOME MED LIST COMPLETE! XX SCH (23:20)
--- NOTE | 2020-11-05 23:29 | REPVR ---
PROCEDURE INFORMATION: Exam: CT Right Lower Extremity With Contrast; Thigh Exam date and time: 11/05/2020 10:43 PM Age: 70 years old Clinical indication: Other: Proximal wound- rule out abscess TECHNIQUE: Imaging protocol: CT of the Right lower extremity with intravenous contrast was performed. Exam focused on the thigh. Radiation optimization: All CT scans at this facility use at least one of these dose optimization techniques: automated exposure control; mA and/or kV adjustment per patient size (includes targeted exams where dose is matched to clinical indication); or iterative reconstruction. Contrast material: ISOVUE 370; Contrast volume: 100 ml; Contrast route: INTRAVENOUS (IV); COMPARISON: CT ANGIO ABDOMINAL ARTERIES 10/12/2020 8:06 AM FINDINGS: Bones/joints: The osseous structures are intact. No fracture or erosive change is evident. Soft tissues: There is a generous abdominal pannus with subcutaneous infiltration and nodularity particularly toward the left. There is a wound in the anteromedial proximal right thigh which is covered by the various folds of the pannus and inguinal crease. There is high attenuation material within the apparent wound which may reflect packing or medication. No adjacent are underlying abscess is seen. There is some additional skin thickening and irregular infiltration in the anteromedial thigh which is more caudal to the apparent site of superficial wound. There are surgical clips in the right inguinal region. Vasculature: There is short segment occlusion of the proximal right superficial femoral artery with reconstitution a short distance later. Bowel: Sigmoid diverticulosis. IMPRESSION: 1. Shallow or superficial wound in the anterior proximal thigh which contains high attenuation material and gas with confluent soft tissue at the periphery and slight surrounding infiltration of fat and is covered by various folds of the inguinal crease and generous abdominal pannus. No adjacent abscess is seen. Slightly more caudal and medial at the anteromedial proximal thigh, there is some irregular subcutaneous infiltration and skin thickening which may reflect cellulitis or scar. 2. Multiple surgical clips in the right inguinal region. 3. Short segment occlusion of the right superficial femoral artery with reconstitution a short distance more distal. 4. Nodularity and confluence within the abdominal pannus, left greater than right which may reflect cellulitis and/or previous injection sites. Electronically signed by: Gage Kirby On 11/05/2020 23:28:55 PM
[2020-11-06 00:49] LABS: BASO # 0.1 10^3/uL (0.0-0.2); BASO % 0.5 % (0.0-1.0); EOS # 0.3 10^3/uL (0.0-0.5); EOS % 1.4 % (0.0-3.0); HEMATOCRIT 25.8 % (36.0-47.0); HEMOGLOBIN 7.6 g/dl (12.0-15.5); LYMPH # 1.2 10^3/uL (1.5-5.0); LYMPH % 5.4 % (24.0-44.0); MEAN CORPUSCULAR HEMOGLOBIN 29.5 pg (27.0-33.0); MEAN CORPUSCULAR HGB CONC 29.5 g/dl (32.0-36.5); MONO # 0.9 10^3/uL (0.0-0.8); MONO % 4.2 % (2.0-8.0); NEUTROPHILS % 86.9 % (36.0-66.0); PLATELET COUNT, AUTOMATED 255 10^3/uL (150-450); RED BLOOD COUNT 2.58 10^6/uL (4.00-5.40)
[2020-11-06] MEDS: VANCOMYCIN HCL 1,000 MG, VIAL MATE ADAPTER 1 EACH in NS 250 ML IV ONE ×2 (01:53→02:04)
--- NOTE | 2020-11-06 07:47 | ECGEPIP ---
[facility] - ED Test Date: 2020-11-05 Pat Name: MARYBETH HERNADEZ Department: Room: - Gender: Female [employer] Director: ANDREE : 1950 Requested By: Lynn Womack Order Number: [id number] Reading MD: Lynn Womack Measurements Intervals [place] Rate: 97 P: 60 HI: 158 QRS: 41 QRSD: 124 T: 221 QT: 350 QTc: 444 Interpretive Statements Normal sinus rhythm Left bundle branch block similar 10/28/20 Electronically Signed on 11-06-2020 7:46:40 EDT by Lynn Womack
[2020-11-06 11:00] VITALS: BP 116/55
== END 2020-11-06 11:48 | disposition short-term general hospital (02) ==
LOC: M ED 14:50
DX: S31.109A Unspecified open wound of abdominal wall, unspecified quadrant without penetration into peritoneal cavity, initial encounter (principal); R55 Syncope and collapse; L03.314 Cellulitis of groin; D72.829 Elevated white blood cell count, unspecified; E11.9 Type 2 diabetes mellitus without complications; G47.33 Obstructive sleep apnea (adult) (pediatric); I11.0 Hypertensive heart disease with heart failure; N18.6 End stage renal disease; Y92.9 Unspecified place or not applicable; Y93.9 Activity, unspecified; Y99.9 Unspecified external cause status; Z88.1 Allergy status to other antibiotic agents; Z88.6 Allergy status to analgesic agent; Z88.8 Allergy status to other drugs, medicaments and biological substances; Z79.4 Long term (current) use of insulin; Z79.51 Long term (current) use of inhaled steroids; Z79.899 Other long term (current) drug therapy; Z99.2 Dependence on renal dialysis; Z91.040 Latex allergy status
CPT/HCPCS: 70450; 71045; 71250; 73701; 74176; 76882; 80048; 80076; 82550; 82553; 83605; 83690; 83735; 84439; 84443; 84484; 85025; 87040; 87631; 93005; 93041; 94760; 96365; 99285; J3370; Q9967

== ENCOUNTER 2020-11-17 14:33 | Observation (INO) | payer MEDICARE ==
[~2020-11-17] VITALS: Ht 142.2 cm; Wt 75.3 kg
[~2020-11-17 14:33] MED LIST changes: +FERR325T18 PO; +OMEP1CAP73 PO
--- NOTE | 2020-11-17 17:44 | REP ---
INDICATION: DYSPNEA/COUGH COMPARISON: 11/05/2020 TECHNIQUE: Portable AP view of the chest FINDINGS: Evaluation is limited by portable technique. Dialysis catheter in stable position. Sternotomy and CABG again noted. Chronic cardiomegaly suggested. Mid to lower lobe opacities remain unchanged. No pneumothorax. IMPRESSION: Bilateral mid to lower lobe opacities unchanged. <Electronically signed by John King > 11/17/20 [id number]
[2020-11-17 18:24] LABS: ALBUMIN 2.9 GM/DL (3.2-5.2); ALT/SGPT 35 U/L (12-78); BILIRUBIN,DIRECT < 0.1 MG/DL (0.0-0.2); BILIRUBIN,TOTAL 0.4 MG/DL (0.2-1.0); BLOOD UREA NITROGEN 25 MG/DL (7-18); CALCIUM LEVEL 9.3 MG/DL (8.8-10.2); CARBON DIOXIDE LEVEL 25 MEQ/L (21-32); CHLORIDE LEVEL 98 MEQ/L (98-107); CK-MB VALUE MASS 3.2 NG/ML (<3.6); CPK CREATINE PHOSPHOKINASE 51 U/L (26-192); CREATININE FOR GFR 5.43 MG/DL (0.55-1.30); GLOMERULAR FILTRATION RATE 8.3 (>39); GLUCOSE, FASTING 119 MG/DL (70-100); MB/CK RELATIVE INDEX 6.27 (< OR =4); NT-PRO BNP 2285 PG/ML (<125); POTASSIUM SERUM 5.6 MEQ/L (3.5-5.1); SODIUM LEVEL 131 MEQ/L (136-145); TOTAL PROTEIN 6.4 GM/DL (6.4-8.2); TROPONIN I < 0.02 NG/ML (< 0.10)
[2020-11-17] MEDS ORDERED: DEXTROSE 50% 50 ML SYRINGE IV PRN (18:50)
[2020-11-17] MEDS ORDERED: IPRATROPIUM 0.5MG/ALBUTEROL 2.5MG INH SOL UD 3ML (DUONEB) NEB PRN (18:50)
[2020-11-17] MEDS ORDERED: ACETAMINOPHEN TAB 650MG DOSE (2X325MG) PO PRN (18:50)
[2020-11-17] MEDS ORDERED: GLUCOSE 4GM CHEW TABLET PO PRN (18:50)
[2020-11-17] MEDS ORDERED: GLUCAGON INJ 1MG VIAL SC PRN (18:50)
[2020-11-17] MEDS ORDERED: HOME MED LIST COMPLETE! XX SCH (18:55)
[2020-11-17 19:14] LABS: BASO % 0.3 % (0.0-1.0); EOS # 0.5 10^3/uL (0.0-0.5); EOS % 4.5 % (0.0-3.0); HEMATOCRIT 33.1 % (36.0-47.0); HEMOGLOBIN 9.8 g/dl (12.0-15.5); LYMPH # 0.9 10^3/uL (1.5-5.0); LYMPH % 7.5 % (24.0-44.0); MEAN CORPUSCULAR HEMOGLOBIN 28.9 pg (27.0-33.0); MEAN CORPUSCULAR HGB CONC 29.6 g/dl (32.0-36.5); MEAN CORPUSCULAR VOLUME 97.6 fl (80.0-96.0); MONO # 0.9 10^3/uL (0.0-0.8); MONO % 7.5 % (2.0-8.0); NEUTROPHILS # 9.6 10^3/uL (1.5-8.5); NEUTROPHILS % 79.7 % (36.0-66.0); PLATELET COUNT, AUTOMATED 392 10^3/uL (150-450); RED BLOOD COUNT 3.39 10^6/uL (4.00-5.40); WHITE BLOOD COUNT 12.1 10^3/uL (4.0-10.0)
--- NOTE | 2020-11-17 19:17 | HPEPDOC ---
General Date of Admission 11/17/20 Date of Service: Nov 17, 2020 Chief Complaint The patient is a 70-year-old female admitted with a reason for visit of SOB. Source: Patient History of Present Illness Barbie Duran is a 70yo F significant medical history of CAD, CABG July 2020, CHF, hypertension, diabetes, asthma, GERD, PVD and ESRD with HD Tuesday who presents with complaints of shortness of breath and malaise. Patient reportedly had a syncopal event on Tuesday during her dialysis and dialysis was stopped and patient returned to nursing her room. Over the course of the weekend patient reports that she did not feel well and as she was to undergo HD today she reportedly felt "too ill" to go. When asked why- she describes "coughing a lot". Patient was sent to hospital given missed dialysis episodes and feeling unwell. Pt recently had cough, pna and chest pain w/u Oct 20 and s/p transfer to [facility]. She is a poor historian regarding events at [facility] or d/c timing. Patient describes cough is dry cough. Pt denies farmer, sinus congestion, sore throat, productive cough, palpitations, chest pain, n/v/d, abdominal pain, or sensory changes. Initial lab work CBC with leukocytosis ( improved compared to last lab wbc 22, today 12). Potassium 5.6, creatinine 5.43. EKG stable left bundle branch block. Troponin 0.02, patient tolerating 2 L nasal cannula baseline O2 at 100%. BNP 2285, blood glucose 119. Resp PCR neg. Blood cultures, procalc, lactic pend. Per nephrology recommendations -HD planned in a.m.; patient will be observed for further evaluation management presenting concerns. Home Medications Scheduled Aspirin (Aspirin EC) 81 Mg Tab, 81 MG PO DAILY, (Reported) Atorvastatin Calcium (Atorvastatin Calcium) 40 Mg Tab, 40 MG PO QHS, (Reported) Budesonide/Formoterol (Symbicort 160-4.5 Mcg Inhaler) 6 Gm Hfa.aer.ad, 2 PUFF INH BID, (Reported) Calcitriol (Calcitriol) 0.25 Mcg Cap, 0.25 MCG PO DAILY, (Reported) Cholecalciferol (Vitamin D3) (Vitamin D3) 1,000 Unit Tablet, 1,000 UNITS PO DAILY, (Reported) Clopidogrel Bisulfate (Clopidogrel) 75 Mg Tablet, 75 MG PO DAILY, (Reported) Ferrous Sulfate (Ferrous Sulfate) 325 Mg Tablet, 325 MG PO DAILY, (Reported) Insulin Glargine,Hum.rec.anlog (Lantus Solostar) 100 Unit/1 Ml Insuln.pen, 30 UNITS SC DAILY, (Reported) Insulin Lispro (Insulin Lispro) 100 Unit/1 Ml Vial, 1 DOSE SC AC, (Reported) SLIDING SCALE: 151-200 GIVE 2 UNITS 201-250 GIVE 4 UNITS 251-300 GIVE 6 UNITS 301-350 GIVE 8 UNITS 351-400 GIVE 10 UNITS 401-450 GIVE 12 UNITS L.acidoph/L.bulg/B.bif/S.therm (Bacid Caplet) 1 Each Tablet, 1 TAB PO BID, (Reported) Levothyroxine Sodium (Levothyroxine Sodium) 125 Mcg Tablet, 125 MCG PO DAILY, (Reported) Metoprolol Tartrate (Metoprolol Tartrate) 25 Mg Tablet, 12.5 MG PO TID, (Reported) Omeprazole (Omeprazole) 20 Mg Capsule.dr, 20 MG PO DAILY, (Reported) Torsemide (Torsemide) 20 Mg Tablet, 20 MG PO 4XWK, (Reported) TAKES 20MG BID ON TUESDAY, TUESDAY, TUESDAY AND TUESDAY Scheduled PRN Albuterol Sulfate (Ventolin Hfa) 108 Mcg/Act Aer, 2 PUFFS INH Q4H PRN for S HORTNESS OF BREATH, (Reported) Guaifenesin (Guaifenesin) 100 Mg/5 Ml Liquid, 100 MG PO Q4H PRN for CONGESTION, (Reported) Midodrine HCl (Midodrine HCl) 10 Mg Tablet, 10 MG PO TID PRN for HYPOTENSION, (Reported) Nitroglycerin (Nitrostat) 0.4 Mg Subl, 0.4 MG SL NITRO PRN for CHEST PAIN, (Reported) Allergies Coded Allergies: cephalexin (Verified Allergy, Severe, RASH, DYSPNEA, 11/05/19) gatifloxacin (Verified Allergy, Severe, RASH, DYSPNEA, 11/05/19) tramadol (Verified Allergy, Severe, RASH, DYSPNEA, 11/05/19) silver nitrate (Verified Allergy, Intermediate, HIVES, RASH, 11/05/19) chlorhexidine (Verified Allergy, Mild, RASH, 11/05/19) latex (Verified Allergy, Mild, RED, SWOLLEN, RASH, 11/05/19) nitrofurantoin (Verified Allergy, Mild, RASH, 11/05/19) sulfamethoxazole (Verified Adverse Reaction, Intermediate, EFFECTS KIDNEY FUNCTION, 11/05/19) trimethoprim (Verified Adverse Reaction, Intermediate, EFFECTS KIDNEY FUNCTION, 11/05/19) Past Medical History Medical History ESRD MWF via perm a cath right AV fistula failed, Chronic CAD status post stenting, recent CABG in July/2020, Chronic HFpEF (grade 1), Group 3 vs Group 2 Pulm HTN (PASP 33 ), IDDM, Chronic Asthma, GERD, Hypothyroidism, Diverticulosis/ hx of GI bleed, DIXON, PVD Surgical History Appendectomy, Cataract surgery, Carpal tunnel surgery, Tonsillectomy, , D&C Left ankle fracture repair, right groin and pseudoaneurysm repair July 2020 Family History Significant Family History: COPD Mother- COPD Social History * Smoker: Denies Alcohol: Denies Drugs: denies Recent Travel/Sick Contacts: Denies: Recent travel, Recent sick contacts Psychosocial History: No pertinent psych hx A-FIB/CHADSVASC A-FIB History Current/History of A-Fib/PAF?: Yes Current PO Anticoag Therapy: No Review of Systems Constitutional: Reports: Malaise, Fatigue; Denies: Chills, Fever, Night Sweats Eyes: Denies: Pain, Vision change ENT: Denies: Head Aches, Ear Pain, Dysphagia Skin: Denies: Rash, Lesions, Breakdown Pulmonary: Reports: Dyspnea; Denies: Cough Cardiovascular: Denies: Chest Pain, Palpitations, Orthopnea, Paroxysmal Noc. Dyspnea, Lt Headedness Gastrointestinal: Denies: Nausea, Vomiting, Abdominal Pain, Diarrhea Genitourinary: Denies: Dysuria, Frequency, Incontinence, Retention Hematologic: Denies: Bruising, Bleeding Excessively Musculoskeletal: Denies: Neck Pain, Back Pain, Joint Pain, Muscle Pain, Spasms Neurological: Denies: Weakness, Numbness, Change in speech, Confusion Psych: Reports: Mood Normal; Denies: Depression, Memory Issues Physical Examination General Exam: Positive: Alert, Cooperative, No Acute Distress Eye Exam: Positive: PERRLA, Conjunctiva & lids normal, EOMI; Negative: Sclera icteric ENT Exam: Positive: Atraumatic, Mucous membr. moist/pink, Pharynx Normal Neck Exam: Positive: Supple; Negative: JVD, thyromegaly Chest Exam: Positive: Diminished Heart Exam: Positive: Rate Normal, Regular Rhythm, Normal S1, Normal S2, Murmurs; Negative: Rubs Telemetry: Positive: Other Telemetry: (LBBB) Abdomen Exam: Positive: Normal bowel sounds, Soft; Negative: Tenderness, Hepatospenomegaly Extremity Exam: Positive: Normal pulses; Negative: Clubbing, Cyanosis, Edema Skin Exam: Positive: Other skin issue (Superficial bruising noted abd; R groin wound with dressing CDI); Negative: Breakdown, Lesion Neuro Exam: Positive: Normal Gait, Normal Speech, Cranial Nerves 3-12 NL, Reflexes 2+ Psych Exam: Positive: Mental status NL, Mood NL, Oriented x 3 Vital Signs Vital Signs Date Time Temp Pulse Resp B/P (MAP) Pulse Ox O2 Delivery O2 Flow Rate FiO2 11/17/20 18:33 93 100 11/17/20 17:40 144/100 (115) 11/17/20 15:36 97.9 28 Nasal Cannula 2.0 Laboratory Data Labs 24H Laboratory Tests 2 11/17/20 17:06: Anion Gap 8, Glomerular Filtration Rate 8.3L, Calcium Level 9.3, Total Bilirubin 0.4, Direct Bilirubin < 0.1, Aspartate Amino Transf (AST/SGOT) 35, Alanine Aminotransferase (ALT/SGPT) 35, Alkaline Phosphatase 124H, Total Creatine Kinase 51, Creatine Kinase MB 3.2, Creatine Kinase MB Relative Index 6.27H, Troponin I < 0.02, PG-Ppd-R-Type Natriuretic Peptide 2285H, Total Protein 6.4, Albumin 2.9L, Albumin/Globulin Ratio 0.8L, Thyroid Stimulating Hormone (TSH) 2.310 CBC/BMP Laboratory Tests 11/17/20 17:06 Microbiology Microbiology 11/17/20 Respiratory Virus Panel (PCR) (NAWAF), Received Pending Assessment/Plan 1. Dyspnea, fatigue 2/2 fluid overload with missed dialysis in ESRD pt. *Complicated by pt with chronic resp failure, CHF requiring 2LNC; asthma and recent pna. -Admit to Medical floor. -Tele, continuous pulse ox. -Pt to undergo dialysis in AM, Nephrology consulted. -Continue diuretics. -AM labs. 2. Leukocytosis: WBCs 12.2 this is a decrease from 22 last month. -Monitor patient for signs/symptoms of infection; reassuringly patient afebrile, normotensive and not tachycardic. CXR stable. -We will check pro calcitonin, lactic and blood cultures. -Patient does endorse cough in setting of hypervolemia with missed dialysis and underlying asthma and recent pneumonia. She has had reported coughing since last month. -Consider differential and empiric coverage. Should patient have elevated lactic or elevated procalcitonin would initiate. 3. Chronic HFpEF -Is and Os, daily weights. -Continue home medications, fluid restriction/ 2g Na diet - Will give torsemide tonight since pt 141/100 and missed HD 4. Chronic Asthma: Patient tolerating 2 L nasal cannula baseline. -Telemetry and continuous pulse -Scheduled and as needed breathing treatment -A.m. lab -Patient does have history of DIXON will order CPAP nightly 5. ?PAF: During last admission patient with A. fib episode. She was transferred to [facility] at that time as she was having some chest pain as well. Patient unfortunately, poor historian regarding the events at [facility]. Presently, she is not tachycardic with left bundle branch block. -Plan for telemetry and electrolyte monitor -we will continue with DVT prophylaxis, plavix and asa. 6. Chronic CAD status post stenting / CABG -Resume home meds once they are reconciled; Plavix and Asa. 7. IDDM -Monitor patient blood glucose ACHS. -Sliding scale insulin and continue home long-acting. -Consistent carb diet -a.m. labs. 8. Hypothyroidism -Continue levothyroxine 9. Hypotension: Continue midodrine 10. Class 3 obesity -Complicates care 11. R groin wound: Patient with recent intervention in July 2020; healing. Plan for site care and daily dressing changes or when soiled. Also note patient with [facility] DVT px w Heparin CODE Status: FULL Dispo: Back to [facility]; anticipate less than 2 midnight stay potentially patient to return after HD in a.m. Plan / VTE VTE Prophylaxis Ordered?: Yes KRISSY MO NP Nov 17, 2020 18:59
--- NOTE | 2020-11-17 19:33 | ECGEPIP ---
[facility] - ED Test Date: 2020-11-17 Pat Name: MARYBETH HERNADEZ Department: Room: - Gender: Female Marketing Information Coordinator: ethan : 1950 Requested By: KOKI Kay Order Number: [id number] Reading MD: Barbara Howell Measurements Intervals [place] Rate: 79 P: 10 AL: 146 QRS: 6 QRSD: 124 T: 178 QT: 372 QTc: 426 Interpretive Statements Normal sinus rhythm Left bundle branch block cw 11/05/[address] T wave changes Electronically Signed on 11-17-2020 19:33:17 EDT by Barbara Howell
[2020-11-17] MEDS ORDERED: BENZONATATE 100MG CAPSULE PO PRN (20:20)
[2020-11-17] MEDS ORDERED: NITROGLYCERIN 0.4 MG SUBL TABLET SL PRN (20:40)
[2020-11-17] MEDS ORDERED: MIDODRINE 5 MG TAB PO PRN (20:40)
[2020-11-17] MEDS ORDERED: guaiFENesin SYRUP 200 MG/10 ML UDC PO PRN (20:40)
[2020-11-17] MEDS: HumaLOG INSULIN (NovoLOG) PER UNIT SC SCH (21:00)
[2020-11-17 21:20] VITALS: BP 128/57
[2020-11-17] MEDS ORDERED: FUROSEMIDE 100MG/10ML VIAL (J1940) IV ONE (21:50)
[2020-11-17] MEDS ORDERED: TORSEMIDE 20 MG TAB PO ONE (22:00)
[2020-11-17] MEDS: ATORVASTATIN 20 MG TAB PO SCH (22:14)
[2020-11-17] MEDS: METOPROLOL TART 12.5 MG PER 1/2 TAB PO SCH (22:15)
[2020-11-17] MEDS: HEPARIN SOD (PORCINE) 5000UNITS/ML 1ML VIAL/SYRINGE SC SCH (22:15)
[2020-11-18 03:25] LABS: BASO % 0.4 % (0.0-1.0); EOS # 0.6 10^3/uL (0.0-0.5); EOS % 5.8 % (0.0-3.0); HEMOGLOBIN 8.6 g/dl (12.0-15.5); LYMPH # 0.8 10^3/uL (1.5-5.0); MEAN CORPUSCULAR HEMOGLOBIN 28.8 pg (27.0-33.0); MEAN CORPUSCULAR HGB CONC 29.7 g/dl (32.0-36.5); MONO # 0.7 10^3/uL (0.0-0.8); MONO % 6.5 % (2.0-8.0); NEUTROPHILS # 8.8 10^3/uL (1.5-8.5); NEUTROPHILS % 79.6 % (36.0-66.0); PLATELET COUNT, AUTOMATED 371 10^3/uL (150-450); RED BLOOD COUNT 2.99 10^6/uL (4.00-5.40); WHITE BLOOD COUNT 11.1 10^3/uL (4.0-10.0)
[2020-11-18 03:57] LABS: CALCIUM LEVEL 9.3 MG/DL (8.8-10.2); CREATININE FOR GFR 5.86 MG/DL (0.55-1.30); GLOMERULAR FILTRATION RATE 7.6 (>39); MAGNESIUM LEVEL 1.6 MG/DL (1.8-2.4); POTASSIUM SERUM 5.3 MEQ/L (3.5-5.1)
[2020-11-18] MEDS: HEPARIN SOD (PORCINE) 5000UNITS/ML 1ML VIAL/SYRINGE SC SCH ×3 (05:41→21:21)
[2020-11-18] MEDS: LEVOTHYROXINE 125MCG TABLET (0.125MG) PO SCH (05:41)
[2020-11-18 06:00] VITALS: BP 116/56
[2020-11-18] MEDS: SYMBICORT 160/4.5MCG INHALER 6GM INH SCH ×2 (07:29→19:56)
[2020-11-18] MEDS: HumaLOG INSULIN (NovoLOG) PER UNIT SC SCH ×4 (07:30→21:00)
[2020-11-18] MEDS: LACTOBACILLUS ACIDOPHILUS CAP (BACID) PO SCH ×2 (07:49→18:31)
[2020-11-18] MEDS: METOPROLOL TART 12.5 MG PER 1/2 TAB PO SCH ×3 (07:49→21:00)
[2020-11-18] MEDS: OMEPRAZOLE 20 MG CAP PO SCH (07:49)
[2020-11-18] MEDS: ASPIRIN 81MG ENTERIC TABLET PO SCH (07:49)
[2020-11-18] MEDS: FERROUS SULFATE 325MG TAB PO SCH (07:50)
[2020-11-18] MEDS: CALCITRIOL 0.25 MCG CAP (S0169) PO SCH (07:50)
[2020-11-18] MEDS: VITAMIN D 1,000 INTERNATIONAL UNITS TABLET PO SCH (07:50)
[2020-11-18] MEDS: TORSEMIDE 20 MG TAB PO SCH (07:50)
[2020-11-18] MEDS: CLOPIDOGREL 75 MG TAB PO SCH (07:50)
[2020-11-18] MEDS ORDERED: DARBEPOETIN 200MCG/0.4ML *DIALYSIS* SYRINGE (J0882 PER 1MCG) IV SCH (09:00)
[2020-11-18] MEDS ORDERED: LEVEMIR (INSULIN DETEMIR) 1 UNITS/0.01ML SC SCH (09:00)
[2020-11-18 09:02] LABS: FOLATE 23.4 NG/ML
[2020-11-18] MEDS: IRON SUCROSE 100MG 5ML VIAL (J1756 PER 1MG) IV SCH (10:01)
[2020-11-18 14:00] VITALS: BP 132/68
[2020-11-18] MEDS ORDERED: TORSEMIDE 20 MG TAB PO SCH (17:00)
--- NOTE | 2020-11-18 17:05 | IPNPDOC ---
Subjective Date Seen The patient was seen on 11/18/20. Subjective Chief Complaint/HPI Patient seen and examined at bedside following her dialysis session. She reported feeling tired and some improvement in her shortness of breath following dialysis. She denies chest pain, abdominal pain, nausea, vomiting, problem with urination or bowel movements Objective Physical Examination Chest Exam: Positive: Diminished Other physical findings General: Lying in bed, no acute distress Head/Neck/Throat: Trachea midline, mucous membranes moist Eyes: Sclera anicteric, no erythema or discharge appreciated bilaterally Thorax: Normal respiratory effort on 2 L nasal cannula, bibasilar crackles appreciated Cardiovascular: Normal rate, regular rhythm, normal S1, S2; radial and pedal pulses 2+, lower extremity edema Abdomen: Bowel sounds present, soft/nontender/nondistended Genitourinary: No CVA tenderness, no Gray in place Musculoskeletal: Moving all extremities, no edema Skin: Warm, dry Neurologic: AAOx3, speech fluent and goal-directed, no focal deficits, grossly intact Assessment /Plan Assessment #End-stage renal disease/missed dialysis -Underwent dialysis today and tolerated it well. -Appreciate nephrology recommendation #Acute on chronic diastolic heart failure -Reports making some urine still. Continue with scheduled torsemide and dialysis sessions as per nephrology recommendations. -Monitor i/o, and daily weight, 2 g diet, restrict fluid intake #Pneumonia -Productive cough, leukocytosis, and elevated procalcitonin. -She was recently hospitalized within the last 30 days. Therefore will cover for MRSA and Pseudomonas until further cultures have resulted. #Asthma -No signs of acute exacerbation. Continue with Symbicort, and prn neb treatments. #Deconditioning -Recent hospitalization in October for chest pain as well as pneumonia reportedly at [facility]. Was unable to provide details, will try to obtain further information from family members. PT/OT #Obstructive sleep apnea -CPAP nightly #Chronic CAD status post stenting / CABG -Continue with aspirin, Plavix, and statin there # IDDM -Sliding scale, Accu-Cheks, hypoglycemic protocol #Hypothyroidism -Continue levothyroxine #Hypotension -Continue midodrine #Class 3 obesity -Complicates care #Right groin wound: Patient with recent intervention in July 2020; healing. Local wound care -Also note patient with bruising from previous hospital injection sites to [facility] for monitoring #DVT px -Heparin Plan/VTE VTE Prophylaxis Ordered?: Yes VS, I&O, [facility] Vital Signs/I&O Vital Signs Date Time Temp Pulse Resp B/P (MAP) Pulse Ox O2 Delivery O2 Flow Rate FiO2 11/18/20 16:30 98 132/68 11/18/20 14:00 98.0 15 95 Nasal Cannula 2.0 I&O- Last 24 Hours up to 6 AM 11/18/20 06:00 Intake Total 0 ml Balance 0 ml Laboratory Data 24H LABS Laboratory Tests 2 11/17/20 17:06: Anion Gap 8, Glomerular Filtration Rate 8.3L, Calcium Level 9.3, Total Bilirubin 0.4, Direct Bilirubin < 0.1, Aspartate Amino Transf (AST/SGOT) 35, Alanine Aminotransferase (ALT/SGPT) 35, Alkaline Phosphatase 124H, Total Creatine Kinase 51, Creatine Kinase MB 3.2, Creatine Kinase MB Relative Index 6.27H, Troponin I < 0.02, VQ-Juj-C-Type Natriuretic Peptide 2285H, Total Protein 6.4, Albumin 2.9L, Albumin/Globulin Ratio 0.8L, Procalcitonin 1.37, Thyroid Stimulating Hormone (TSH) 2.310 11/17/20 17:57: Immature Granulocyte % (Auto) 0.5, Neutrophils (%) (Auto) 79.7H, Lymphocytes (%) (Auto) 7.5L, Monocytes (%) (Auto) 7.5, Eosinophils (%) (Auto) 4.5H, Basophils (%) (Auto) 0.3, Neutrophils # (Auto) 9.6H, Lymphocytes # (Auto) 0.9L, Monocytes # (Auto) 0.9H, Eosinophils # (Auto) 0.5, Basophils # (Auto) 0.0, Nucleated Red Blood Cells % (auto) 0.0 11/17/20 18:50: Vitamin B12 Level 688, Folate 23.4 11/17/20 21:47: Bedside Glucose (Misc Panel) 94 11/18/20 03:11: Immature Granulocyte % (Auto) 0.7, Neutrophils (%) (Auto) 79.6H, Lymphocytes (%) (Auto) 7.0L, Monocytes (%) (Auto) 6.5, Eosinophils (%) (Auto) 5.8H, Basophils (%) (Auto) 0.4, Neutrophils # (Auto) 8.8H, Lymphocytes # (Auto) 0.8L, Monocytes # (Auto) 0.7, Eosinophils # (Auto) 0.6H, Basophils # (Auto) 0.0, Nucleated Red Blood Cells % (auto) 0.0, Anion Gap 4L, Glomerular Filtration Rate 7.6L, Lactic Acid Level 0.6, Calcium Level 9.3, Magnesium Level 1.6L, Iron Level 50, Total Iron Binding Capacity 217L, Transferrin % Saturation 23.0, Ferritin 1692H 11/18/20 06:35: Bedside Glucose (Misc Panel) 122H 11/18/20 12:21: Bedside Glucose (Misc Panel) 85 11/18/20 16:27: Bedside Glucose (Misc Panel) 68L CBC/BMP Laboratory Tests 11/17/20 17:06 11/17/20 17:57 11/18/20 03:11 Microbiology Microbiology 11/18/20 Blood Culture, Received Pending 11/17/20 Respiratory Virus Panel (PCR) (NAWAF) - Final, Complete NATY KAUFMAN M.D. Nov 18, 2020 17:05
[2020-11-18] MEDS ORDERED: VANCOMYCIN HCL 0 MG in IV FLUID PLACE HOLDER 1 EA IV SCH (17:15)
[2020-11-18] MEDS: PIPERACILLIN/TAZOBACTAM SOD 2.25 GM in D5W MINI-BAG PLUS 50 ML IV SCH (18:31)
--- NOTE | 2020-11-18 19:27 | CR.PDOC ---
General Date of Consultation: Nov 18, 2020 Referring Provider: NATY KAUFMAN M.D. Attending Physician: BETTY MILLER MD Consultation REASON FOR CONSULTATION/CHIEF COMPLAINT: ESRD Missed HD. HISTORY OF PRESENT ILLNESS: 70yo F significant medical history of CAD, CABG July 2020, CHF, hypertension, diabetes, asthma, GERD, PVD and ESRD with HD Tuesday who presents with complaints of shortness of breath and malaise. Patient reportedly had a syncopal event on Tuesday during her dialysis and dialysis was stopped and patient returned to [place]. Over the course of the weekend patient reports that she did not feel well and as she was to undergo HD but felt "too ill" to go. When asked why- she describes "coughing a lot". Patient was sent to hospital given missed dialysis episodes and feeling unwell. Pt recently had cough, pna and chest pain w/u Oct 20 and s/p transfer to [facility]. She is a poor historian regarding events at [facility] or d/c timing. Patient describes cough is dry cough. Pt denies farmer, sinus congestion, sore throat, productive cough, palpitations, chest pain, n/v/d, abdominal pain, or sensory changes. Pt was admitted under the hospitalist service and nephrology was called for further management of ESRD. I arranged her HD early AM and evaluated her during HD. She was tolerating it well. ALLERGIES: Please see below. HOME MEDICATIONS: Please see below. PAST MEDICAL HISTORY: ESRD MWF via perm a cath right AV fistula failed, Chronic CAD status post stenting, recent CABG in July/2020, Chronic HFpEF (grade 1), Group 3 vs Group 2 Pulm HTN (PASP 33 ), IDDM, Chronic Asthma, GERD, Hypothyroidism, Diverticulosis/ hx of GI bleed, DIXON, PVD Surgical History Appendectomy, Cataract surgery, Carpal tunnel surgery, Tonsillectomy, , D&C Left ankle fracture repair, right groin and pseudoaneurysm repair July 2020 FAMILY HISTORY: Unobtainable SOCIAL HISTORY: [place] resident, No drug abuse. REVIEW OF SYSTEMS: Constitutional: Reports: Malaise, Fatigue; Denies: Chills, Fever, Night Sweats Eyes: Denies: Pain, Vision change ENT: Denies: Head Aches, Ear Pain, Dysphagia Skin: Denies: Rash, Lesions, Breakdown Pulmonary: Reports: Dyspnea; Denies: Cough Cardiovascular: Denies: Chest Pain, Palpitations, Orthopnea, Paroxysmal Noc. Dyspnea, Lt Headedness Gastrointestinal: Denies: Nausea, Vomiting, Abdominal Pain, Diarrhea Genitourinary: Denies: Dysuria, Frequency, Incontinence, Retention Hematologic: Denies: Bruising, Bleeding Excessively Musculoskeletal: Denies: Neck Pain, Back Pain, Joint Pain, Muscle Pain, Spasms Neurological: Denies: Weakness, Numbness, Change in speech, Confusion Psych: Reports: Mood Normal; Denies: Depression, Memory Issues PHYSICAL EXAMINATION: General Exam: Positive: Alert, Cooperative, No Acute Distress Eye Exam: Positive: PERRLA, Conjunctiva & lids normal, EOMI; Negative: Sclera icteric ENT Exam: Positive: Atraumatic, Mucous membr. moist/pink, Pharynx Normal Neck Exam: Positive: Supple; Negative: JVD, thyromegaly Chest Exam: Positive: Diminished Heart Exam: Positive: Rate Normal, Regular Rhythm, Normal S1, Normal S2, Murmurs; Negative: Rubs Telemetry: Positive: Other Telemetry: (LBBB) Abdomen Exam: Positive: Normal bowel sounds, Soft; Negative: Tenderness, Hepatospenomegaly Extremity Exam: Positive: Normal pulses; Negative: Clubbing, Cyanosis, Edema Skin Exam: Positive: Other skin issue (Superficial bruising noted abd; R groin wound with dressing CDI); Negative: Breakdown, Lesion Neuro Exam: Positive: Normal Gait, Normal Speech, Cranial Nerves 3-12 NL, Reflexes 2+ Psych Exam: Positive: Mental status NL, Mood NL, Oriented x 3 LABORATORY DATA: Please see below. ASSESSMENT/PLAN: 1. Dyspnea/Acute HFpEF Exacerbation: Urgent Hd being done. UF Goal 3Kg. 2.ESRD, Missed HD: HD today and next HD will be on . 3. Infiltrates on CXR, Possible HCAP: Pt is on empiric Abx coverage. 4. Hypotension: Continue midodrine 5.Anemia: Venofer and Aranesp. 6.hyperkalemia: Sec to missed HD. use 2K dialysate. 7.SHPT: Continue calcitriol. Vital Signs/I&O Vital Signs Date Time Temp Pulse Resp B/P (MAP) Pulse Ox O2 Delivery O2 Flow Rate FiO2 11/18/20 16:30 98 132/68 11/18/20 14:00 98.0 15 95 Nasal Cannula 2.0 I&O- Last 24 Hours up to 6 AM 11/18/20 06:00 Intake Total 0 ml Balance 0 ml Laboratory Data Labs 24H Laboratory Tests 2 11/17/20 21:47: Bedside Glucose (Misc Panel) 94 11/18/20 03:11: Immature Granulocyte % (Auto) 0.7, Neutrophils (%) (Auto) 79.6H, Lymphocytes (%) (Auto) 7.0L, Monocytes (%) (Auto) 6.5, Eosinophils (%) (Auto) 5.8H, Basophils (%) (Auto) 0.4, Neutrophils # (Auto) 8.8H, Lymphocytes # (Auto) 0.8L, Monocytes # (Auto) 0.7, Eosinophils # (Auto) 0.6H, Basophils # (Auto) 0.0, Nucleated Red Blood Cells % (auto) 0.0, Anion Gap 4L, Glomerular Filtration Rate 7.6L, Lactic Acid Level 0.6, Calcium Level 9.3, Magnesium Level 1.6L, Iron Level 50, Total Iron Binding Capacity 217L, Transferrin % Saturation 23.0, Ferritin 1692H 11/18/20 06:35: Bedside Glucose (Misc Panel) 122H 11/18/20 12:21: Bedside Glucose (Misc Panel) 85 11/18/20 16:27: Bedside Glucose (Misc Panel) 68L CBC/BMP Laboratory Tests 11/18/20 03:11 Microbiology Microbiology 11/18/20 Blood Culture, Received Pending 11/17/20 Respiratory Virus Panel (PCR) (NAWAF) - Final, Complete Allergies Coded Allergies: cephalexin (Verified Allergy, Severe, RASH, DYSPNEA, 11/05/19) gatifloxacin (Verified Allergy, Severe, RASH, DYSPNEA, 11/05/19) tramadol (Verified Allergy, Severe, RASH, DYSPNEA, 11/05/19) silver nitrate (Verified Allergy, Intermediate, HIVES, RASH, 11/05/19) chlorhexidine (Verified Allergy, Mild, RASH, 11/05/19) latex (Verified Allergy, Mild, RED, SWOLLEN, RASH, 11/05/19) nitrofurantoin (Verified Allergy, Mild, RASH, 11/05/19) sulfamethoxazole (Verified Adverse Reaction, Intermediate, EFFECTS KIDNEY FUNCTION, 11/05/19) trimethoprim (Verified Adverse Reaction, Intermediate, EFFECTS KIDNEY FUNCTION, 11/05/19) Home Medications Scheduled Aspirin (Aspirin EC) 81 Mg Tab, 81 MG PO DAILY, (Reported) Atorvastatin Calcium (Atorvastatin Calcium) 40 Mg Tab, 40 MG PO QHS, (Reported) Budesonide/Formoterol (Symbicort 160-4.5 Mcg Inhaler) 6 Gm Hfa.aer.ad, 2 PUFF INH BID, (Reported) Calcitriol (Calcitriol) 0.25 Mcg Cap, 0.25 MCG PO DAILY, (Reported) Cholecalciferol (Vitamin D3) (Vitamin D3) 1,000 Unit Tablet, 1,000 UNITS PO DAILY, (Reported) Clopidogrel Bisulfate (Clopidogrel) 75 Mg Tablet, 75 MG PO DAILY, (Reported) Ferrous Sulfate (Ferrous Sulfate) 325 Mg Tablet, 325 MG PO DAILY, (Reported) Insulin Glargine,Hum.rec.anlog (Lantus Solostar) 100 Unit/1 Ml Insuln.pen, 30 UNITS SC DAILY, (Reported) Insulin Lispro (Insulin Lispro) 100 Unit/1 Ml Vial, 1 DOSE SC AC, (Reported) SLIDING SCALE: 151-200 GIVE 2 UNITS 201-250 GIVE 4 UNITS 251-300 GIVE 6 UNITS 301-350 GIVE 8 UNITS 351-400 GIVE 10 UNITS 401-450 GIVE 12 UNITS L.acidoph/L.bulg/B.bif/S.therm (Bacid Caplet) 1 Each Tablet, 1 TAB PO BID, (Reported) Levothyroxine Sodium (Levothyroxine Sodium) 125 Mcg Tablet, 125 MCG PO DAILY, (Reported) Metoprolol Tartrate (Metoprolol Tartrate) 25 Mg Tablet, 12.5 MG PO TID, (Report ed) Omeprazole (Omeprazole) 20 Mg Capsule.dr, 20 MG PO DAILY, (Reported) Torsemide (Torsemide) 20 Mg Tablet, 20 MG PO 4XWK, (Reported) TAKES 20MG BID ON TUESDAY, TUESDAY, TUESDAY AND TUESDAY Scheduled PRN Albuterol Sulfate (Ventolin Hfa) 108 Mcg/Act Aer, 2 PUFFS INH Q4H PRN for SHORTNESS OF BREATH, (Reported) Guaifenesin (Guaifenesin) 100 Mg/5 Ml Liquid, 100 MG PO Q4H PRN for CONGESTION, (Reported) Midodrine HCl (Midodrine HCl) 10 Mg Tablet, 10 MG PO TID PRN for HYPOTENSION, (Reported) Nitroglycerin (Nitrostat) 0.4 Mg Subl, 0.4 MG SL NITRO PRN for CHEST PAIN, (Reported) BETTY MILLER MD Nov 18, 2020 19:12
[2020-11-18] MEDS ORDERED: VANCOMYCIN HCL 750 MG, VIAL MATE ADAPTER 1 EACH in NS 250 ML IV ONE ×2 (21:00→22:00)
[2020-11-18] MEDS: ATORVASTATIN 20 MG TAB PO SCH (21:21)
[2020-11-18 22:00] VITALS: BP 104/46
[2020-11-19] MEDS: PIPERACILLIN/TAZOBACTAM SOD 2.25 GM in D5W MINI-BAG PLUS 50 ML IV SCH ×2 (02:37→10:29)
[2020-11-19] MEDS: SYMBICORT 160/4.5MCG INHALER 6GM INH SCH ×2 (06:07→20:00)
[2020-11-19] MEDS: LEVOTHYROXINE 125MCG TABLET (0.125MG) PO SCH (06:12)
[2020-11-19] MEDS: HEPARIN SOD (PORCINE) 5000UNITS/ML 1ML VIAL/SYRINGE SC SCH ×3 (06:13→20:40)
[2020-11-19 06:22] VITALS: BP 106/46
[2020-11-19 06:30] LABS: BASO # 0.1 10^3/uL (0.0-0.2); BASO % 0.5 % (0.0-1.0); EOS # 0.3 10^3/uL (0.0-0.5); EOS % 2.5 % (0.0-3.0); HEMATOCRIT 31.7 % (36.0-47.0); HEMOGLOBIN 9.1 g/dl (12.0-15.5); LYMPH # 0.8 10^3/uL (1.5-5.0); LYMPH % 6.3 % (24.0-44.0); MEAN CORPUSCULAR HEMOGLOBIN 28.4 pg (27.0-33.0); MEAN CORPUSCULAR HGB CONC 28.7 g/dl (32.0-36.5); MEAN CORPUSCULAR VOLUME 99.1 fl (80.0-96.0); MONO # 0.7 10^3/uL (0.0-0.8); MONO % 5.3 % (2.0-8.0); NEUTROPHILS # 10.4 10^3/uL (1.5-8.5); NEUTROPHILS % 84.5 % (36.0-66.0); PLATELET COUNT, AUTOMATED 372 10^3/uL (150-450); WHITE BLOOD COUNT 12.3 10^3/uL (4.0-10.0)
[2020-11-19 06:43] LABS: CALCIUM LEVEL 8.7 MG/DL (8.8-10.2); CREATININE FOR GFR 3.13 MG/DL (0.55-1.30); GLOMERULAR FILTRATION RATE 15.6 (>39); MAGNESIUM LEVEL 1.7 MG/DL (1.8-2.4); PHOSPHORUS LEVEL 3.2 MG/DL (2.5-4.9)
[2020-11-19] MEDS: HumaLOG INSULIN (NovoLOG) PER UNIT SC SCH ×4 (07:30→21:00)
[2020-11-19] MEDS: ASPIRIN 81MG ENTERIC TABLET PO SCH (08:28)
[2020-11-19] MEDS: METOPROLOL TART 12.5 MG PER 1/2 TAB PO SCH ×3 (08:29→20:43)
[2020-11-19] MEDS: FERROUS SULFATE 325MG TAB PO SCH (08:29)
[2020-11-19] MEDS: CALCITRIOL 0.25 MCG CAP (S0169) PO SCH (08:29)
[2020-11-19] MEDS: CLOPIDOGREL 75 MG TAB PO SCH (08:29)
[2020-11-19] MEDS: LACTOBACILLUS ACIDOPHILUS CAP (BACID) PO SCH ×2 (08:29→17:59)
[2020-11-19] MEDS: VITAMIN D 1,000 INTERNATIONAL UNITS TABLET PO SCH (08:29)
[2020-11-19] MEDS: OMEPRAZOLE 20 MG CAP PO SCH (08:30)
[2020-11-19 10:14] LABS: VANCOMYCIN RANDOM 24.1 UG/ML
--- NOTE | 2020-11-19 12:33 | IPNPDOC ---
Subjective CC/HPI The patient is a 70-year-old female admitted with a reason for visit of Missed Dialysis, Sob. Events since last encounter Pt was seen and examined at bedside in AM. HD done yesterday and 2.5Kg fluid was removed. she is feeling better. General: Denies: Chills, Night Sweats Constitutional: Reports: Malaise, Weakness; Denies: Chills, Fever Eyes: Denies: Pain, Vision change ENT: Denies: Head Aches Skin: Denies: Rash, Lesions Pulmonary: Reports: Dyspnea; Denies: Cough Cardiovascular: Denies: Chest Pain, Palpitations Gastrointestinal: Denies: Nausea, Vomiting Genitourinary: Denies: Dysuria, Frequency Hematologic: Denies: Bruising Musculoskeletal: Denies: Neck Pain, Back Pain Neurological: Reports: Weakness; Denies: Numbness Psych: Reports: Mood Normal Objective Physical Examination General Exam: Alert, No Acute Distress EYE EXAM: PERRLA, Conjunctiva & lids normal ENT EXAM: Atraumatic, Mucous membr. moist/pink Neck Exam: Supple, JVD (mild) Chest Exam: Clear to auscultation, Normal air movement (Wearing NC), Diminished (at bases,) Heart Exam: Rate Normal; No: Murmurs, Rubs ABDOMEN EXAM: Normal bowel sounds, Soft; No: Tenderness Extremity Exam: No: Clubbing, Cyanosis Skin Exam: Nl turgor and temperature; No: Rash Neuro Exam: Normal Speech Psych Exam: Mental status NL, Mood NL Vital Signs/I&O Vital Signs Date Time Temp Pulse Resp B/P (MAP) Pulse Ox O2 Delivery O2 Flow Rate FiO2 11/19/20 08:29 98 123/72 11/19/20 06:00 96.5 14 98 Nasal Cannula 2.0 I&O- Last 24 Hours up to 6 AM 11/19/20 06:00 Intake Total 345 ml Output Total 2500 ml Balance -2155 ml Laboratory Data Labs 24H Laboratory Tests 2 11/18/20 16:27: Bedside Glucose (Misc Panel) 68L 11/18/20 20:35: Bedside Glucose (Misc Panel) 163H 11/19/20 05:53: Immature Granulocyte % (Auto) 0.9, Neutrophils (%) (Auto) 84.5H, Lymphocytes (%) (Auto) 6.3L, Monocytes (%) (Auto) 5.3, Eosinophils (%) (Auto) 2.5, Basophils (%) (Auto) 0.5, Neutrophils # (Auto) 10.4H, Lymphocytes # (Auto) 0.8L, Monocytes # (Auto) 0.7, Eosinophils # (Auto) 0.3, Basophils # (Auto) 0.1, Nucleated Red Blood Cells % (auto) 0.0, Anion Gap 8, Glomerular Filtration Rate 15.6L, Calcium Level 8.7L, Phosphorus Level 3.2, Magnesium Level 1.7L, Random Vancomycin Level 24.1 11/19/20 08:47: Methicillin-Resist S.aureus DNA PCR NOT DETECTED 11/19/20 11:59: Bedside Glucose (Misc Panel) 117H CBC/BMP Laboratory Tests 11/19/20 05:53 FSBS Laboratory Tests Test 11/18/20 16:27 11/18/20 20:35 11/19/20 11:59 Range/Units Bedside Glucose (Misc Panel) 68 163 117 83-110 MG/DL Current Medications Current Medications Medications (Trade) Dose Ordered Sig/Travis Route PRN Reason Start Time Stop Time Status Last Admin Dose Admin Acetaminophen (Tylenol Tab) 650 mg Q4H PRN PO MILD PAIN or TEMP > 101 11/17/20 18:50 Albuterol/ Ipratropium (Duoneb (Ipr 0.5mg/Alb 2.5mg)) 3 ml Q6HP PRN NEB SOB/WHEEZE 11/17/20 18:50 Aspirin (Ecotrin) 81 mg DAILY PO 11/18/20 09:00 11/19/20 08:28 Atorvastatin Calcium (Lipitor) 40 mg QHS PO 11/17/20 21:00 11/18/20 21:21 Benzonatate (Tessalon Perles) 100 mg TIDP PRN PO COUGH 11/17/20 20:20 Budesonide/ Formoterol Fumarate (Symbicort 160/ 4.5mcg) 2 puff RBID INH 11/18/20 08:00 11/19/20 06:07 Calcitriol (Rocaltrol) 0.25 mcg DAILY PO 11/18/20 09:00 11/19/20 08:29 Clopidogrel Bisulfate (PLAVix) 75 mg DAILY PO 11/18/20 09:00 11/19/20 08:29 Darbepoetin Jonathan (Aranesp (Dialysis Use)) 200 mcg HD IV 11/18/20 09:00 11/18/20 11:11 Dextrose (Dextrose 50%) 25 ml ASDIRECTED PRN IV SEE LABEL COMMENTS 11/17/20 18:50 Ferrous Sulfate (Ferrous Sulfate) 325 mg DAILY PO 11/18/20 09:00 11/19/20 08:29 Glucagon (Glucagon) 1 mg ASDIRECTED PRN SC SEE LABEL COMMENTS 11/17/20 18:50 Glucose (Glucose) 16 GM ASDIRECTED PRN PO SEE LABEL COMMENTS 11/17/20 18:50 Guaifenesin (Robitussin) 5 ml Q4H PRN PO CONGESTION 11/17/20 20:40 Heparin Sodium (Heparin) Please refer to ... ASDIRECTED XX 11/18/20 06:00 11/19/20 05:59 DC Heparin Sodium (Heparin) dose as per volume indica... ASDIRECTED PRN IV SEE LABEL COMMENTS 11/17/20 23:10 11/18/20 23:09 DC Heparin Sodium (Porcine) (Heparin) 5,000 units Q8H SC 11/17/20 22:00 11/19/20 06:13 Home Med (Home Med List Complete!) ASDIRECTED XX 11/17/20 18:55 11/17/20 18:59 DC Insulin Detemir (Levemir Insulin) 30 units DAILY SC 11/18/20 09:00 11/18/20 18:23 DC 11/18/20 07:49 Insulin Human Lispro (HumaLOG INSULIN) See Protocol Table AC SC 11/18/20 07:30 Insulin Human Lispro (HumaLOG INSULIN) See Protocol Table QHS CO 11/17/20 21:00 Iron (Venofer) 100 mg HD IV 11/18/20 09:00 11/18/20 10:01 Lactobacillus Acidophilus (Bacid) 1 ea BIDWM PO 11/18/20 08:00 11/19/20 08:29 Levothyroxine Sodium (Synthroid) 125 mcg DAILY@0600 PO 11/18/20 06:00 11/19/20 06:12 Metoprolol Tartrate (Lopressor) 12.5 mg TID PO 11/17/20 21:00 11/19/20 08:29 Midodrine (Proamatine) 10 mg TID PRN PO HYPOTENSION SBP <100 11/17/20 20:40 Nitroglycerin (Nitrostat (1/ 150)) 0.4 mg Q5M PRN SL CHEST PAIN 11/17/20 20:40 Non-Formulary Medication ( See Comment Field Below ) CHECK TO SEE IF THE PATIENT... DAILY@1600 XX 11/19/20 16:00 Omeprazole (PriLOSEC) 20 mg DAILY PO 11/18/20 09:00 11/19/20 08:30 Piperacillin Sod/ Tazobactam Sod 2.25 gm/Dextrose 50 ml @ 50 mls/hr Q8H IV 11/18/20 18:00 11/19/20 10:29 Torsemide (Demadex) 20 mg SuTuThSa@0900 PO 11/18/20 09:00 11/18/20 07:50 Torsemide (Demadex) 20 mg SuTuThSa@1700 PO 11/18/20 17:00 11/18/20 16:30 Vancomycin HCl 1000 mg/IV Miscellaneous Supplies 1 each/ Sodium Chloride 270 ml @ 270 mls/hr HD IV 11/19/20 18:00 Vancomycin HCl / IV Miscellaneous Supplies 0 ml @ 0 mls/hr Q12H IV 11/18/20 17:15 11/18/20 18:13 DC Vitamin D (Vitamin D) 1,000 units DAILY PO 11/18/20 09:00 11/19/20 08:29 Allergies Coded Allergies: cephalexin (Verified Allergy, Severe, RASH, DYSPNEA, 11/05/19) gatifloxacin (Verified Allergy, Severe, RASH, DYSPNEA, 11/05/19) tramadol (Verified Allergy, Severe, RASH, DYSPNEA, 11/05/19) silver nitrate (Verified Allergy, Intermediate, HIVES, RASH, 11/05/19) chlorhexidine (Verified Allergy, Mild, RASH, 11/05/19) latex (Verified Allergy, Mild, RED, SWOLLEN, RASH, 11/05/19) nitrofurantoin (Verified Allergy, Mild, RASH, 11/05/19) sulfamethoxazole (Verified Adverse Reaction, Intermediate, EFFECTS KIDNEY FUNCTION, 11/05/19) trimethoprim (Verified Adverse Reaction, Intermediate, EFFECTS KIDNEY FUNCTION, 11/05/19) Assessment/Plan Date Seen The patient was seen on 11/19/20 in AM at bedside. Plan / VTE VTE Prophylaxis Ordered?: Yes Plan Orders past 48 Hours Orders Ed Vital Signs Q15 Minutes (11/17/20 17:02) Ed Insert Saline Lock Iv (11/17/20 17:02) Ed Continuous Taxonomist (11/17/20:) Ed Maintain Pox>92%,88-92%Copd (11/17/20 17:02) Ed Continuous Pulse Oximetry (11/17/20 17:02) Oxygen Therapy Orders (11/17/20:) Basic Metabolic Profile (11/17/20:) Liver Profile (11/17/20:) Nt-Probnp (11/17/20:) Thyroid Stimulating Hormone (11/17/20:) Cardiac Marker Panel (11/17/20:) Respiratory Panel (11/17/20:) Portable Chest X-Ray (11/17/20:) Ecg With Reading Er Phys (11/17/20 17:02) Ed Isolation: Droplet/Contact (11/17/20 17:02) Cbc With Differential (11/17/20 17:57) Ed Physician Consultation (11/17/20 ) Bed Request (11/17/20 18:49) Home Med List Complete! (Home Med List C (11/17/20 18:55) Admission / Observation Status (11/17/20 18:47) Remote Telemetry 48 Hr Order (11/17/20 18:47) Code Status (11/17/20 18:47) Vital Signs Standard Of Care (11/17/20 18:47) Fall Risk Precautions (11/17/20 18:47) Intake & Output: Every 4 Hours Q4H (11/17/20 18:47) Weigh Daily 06 (11/17/20 18:47) Nephrology Consult (11/17/20 18:47) Acetaminophen Tab (Tylenol Tab) (11/17/20 18:50) Teds And Sequentials TEDS PER POLICY (11/17/20 18:47) Heparin (Heparin) (11/17/20 22:00) Albuterol/Ipratropium (Duoneb (Ipr 0.5mg (11/17/20 18:50) Fsbs Ac&Hs (Fingerstick) ACHS (11/17/20 18:47) Hypoglycemic Protocol (11/17/20 18:47) Insulin Lispro (Humalog Insulin) (11/18/20 07:30) Insulin Lispro (Humalog Insulin) (11/17/20 21:00) D50w (Dextrose 50%) (11/17/20 18:50) Glucose (Glucose) (11/17/20 18:50) Glucagon (Glucagon) (11/17/20 18:50) Cbc With Differential (11/18/20 06:00) Cbc With Differential (11/19/20 06:00) Cbc With Differential (11/20/20 06:00) Cbc With Differential (11/21/20 06:00) Cbc With Differential (11/22/20 06:00) Cbc With Differential (11/23/20 06:00) Cbc With Differential (11/24/20 06:00) Basic Metabolic Profile (11/18/20 06:00) Basic Metabolic Profile (11/19/20 06:00) Basic Metabolic Profile (11/20/20 06:00) Basic Metabolic Profile (11/21/20 06:00) Basic Metabolic Profile (11/22/20 06:00) Basic Metabolic Profile (11/23/20 06:00) Basic Metabolic Profile (11/24/20 06:00) Magnesium Level (11/18/20 06:00) Magnesium Level (11/19/20 06:00) Magnesium Level (11/20/20 06:00) Magnesium Level (11/21/20 06:00) Magnesium Level (11/22/20 06:00) Magnesium Level (11/23/20 06:00) Magnesium Level (11/24/20 06:00) Wound Care (11/17/20 20:19) Benzonatate (Tessalon Perles) (11/17/20 20:20) Blood Cultures (11/17/20 20:21) Lactic Acid Level, Lactate (11/17/20 20:21) Procalcitonin (11/17/20 20:21) Aspirin (Ecotrin) (11/18/20 09:00) Atorvastatin (Lipitor) (11/17/20 21:00) Calcitriol (Rocaltrol) (11/18/20 09:00) Vitamin D (Vitamin D) (11/18/20 09:00) Clopidogrel Bisulfate (Plavix) (11/18/20 09:00) Ferrous Sulfate (Ferrous Sulfate) (11/18/20 09:00) Guaifenesin Syrup 200mg/10ml (Robitussin (11/17/20 20:40) Insulin Detemir (Levemir Insulin) (11/18/20 09:00) Levothyroxine Sodium (Synthroid) (11/18/20 06:00) Midodrine Hcl (Proamatine) (11/17/20 20:40) Nitroglycerin (Nitrostat (1/150)) (11/17/20 20:40) Omeprazole (Prilosec) (11/18/20 09:00) Budesonide/Formoterol 160/4.5 (Symbicort (11/18/20 08:00) Lactobacillus Acidophilus (Bacid) (11/18/20 08:00) Metoprolol Tartrate (Lopressor) (11/17/20 21:00) Torsemide (Demadex) (11/18/20 09:00) Torsemide (Demadex) (11/18/20 17:00) Torsemide (Demadex) (11/17/20 22:00) Furosemide Injection (Lasix Injection) (11/17/20 21:50) Fingerstick Blood Sugar (11/17/20 21:47) * Nursing Order * (11/17/20 23:05) Bedrest With Commode (11/17/20 23:05) Hemodialysis Acute Orders (11/18/20 06:00) Heparin (Heparin) (11/18/20 06:00) Heparin (Heparin) (11/17/20 23:10) Early Tray (11/18/20 06:00) Resp Order Cpoe (11/18/20 ) Fingerstick Blood Sugar (11/18/20 06:35) Ferritin (11/18/20 03:11) Total Iron Binding Capacit (11/18/20 03:11) Vitb12 & Fol (11/17/20 18:50) Darbepoetin (Aranesp (Dialysis Use)) (11/18/20 09:00) Iron Sucrose (Venofer) (11/18/20 09:00) Fingerstick Blood Sugar (11/18/20 12:21) Fingerstick Blood Sugar (11/18/20 16:27) Sputum Culture And Gram Stain (11/18/20 16:58) Piperacillin/Tazobactam Sod (Zosyn) (11/18/20 18:00) Vancomycin Hcl (Vancomycin Hcl) (11/18/20 17:15) Pharmacy Vancomycin Consult (11/18/20 17:15) Obtain Old Records Inpatient (11/18/20 17:21) Consistent Carbohydrates (11/18/20 Dinner) Vancomycin Hcl (Vancomycin Hcl)... (11/19/20 18:00) Note Patient Comment ( See Comment (11/19/20 16:00) Urine Strep Pneumoniae Antigen (11/18/20 18:20) Legionella Antigen Urine (11/18/20 18:20) Pt Eval & Tx As Needed (11/18/20 18:21) Ot Eval & Treat As Needed (11/18/20 18:21) Vancomycin Hcl (Vancomycin Hcl)... (11/18/20 21:00) Vancomycin Hcl (Vancomycin Hcl)... (11/18/20 22:00) Fingerstick Blood Sugar (11/18/20 20:35) Phosphorous Level (11/19/20 06:00) * Nursing Order * (11/18/20 21:16) Blood Cultures (11/19/20 07:14) Blood Cultures (11/19/20 07:34) Mrsa Pcr Screen (11/19/20 07:48) Vancomycin Random (11/19/20 05:53) Fingerstick Blood Sugar (11/19/20 11:59) Plan Text 1. Dyspnea/Acute HFpEF Exacerbation: Urgent Hd done yesterday. Next HD tomorrow. 2.ESRD on HD: HD in AM with further fluid removal. 3. Infiltrates on CXR, Possible HCAP: Pt is on empiric Abx coverage. 4. Hypotension: Continue midodrine 5.Anemia: Venofer and Aranesp. 6.hyperkalemia: Improved with HD. HD with 2K bath in AM 7.SHPT: Continue calcitriol. BETTY MILLER MD Nov 19, 2020 12:33
--- NOTE | 2020-11-19 13:44 | IPNPDOC ---
Subjective Date Seen The patient was seen on 11/19/20. Subjective Chief Complaint/HPI Patient was seen and examined at bedside this morning. She reports improvement in her shortness of breath following dialysis session yesterday. She denied chest pain, abdominal pain, nausea, vomiting, problems urination. Objective Physical Examination Chest Exam: Positive: Diminished Other physical findings General: Lying in bed, no acute distress Head/Neck/Throat: Trachea midline, mucous membranes moist Eyes: Sclera anicteric, no erythema or discharge appreciated bilaterally Thorax: Normal respiratory effort on 2 L nasal cannula, bibasilar crackles appreciated Cardiovascular: Normal rate, regular rhythm, normal S1, S2; radial and pedal pulses 2+, lower extremity edema Abdomen: Bowel sounds present, soft/nontender/nondistended Genitourinary: No CVA tenderness, no Gray in place Musculoskeletal: Moving all extremities, no edema Skin: Warm, dry Neurologic: AAOx3, speech fluent and goal-directed, no focal deficits, grossly intact Assessment /Plan Assessment #End-stage renal disease/missed dialysis -Underwent dialysis on 11/19 and tolerated it well. Plan for dialysis on 11/20. -Appreciate nephrology recommendation #Acute on chronic diastolic heart failure -Reports making some urine still. Continue with scheduled torsemide and dialysis sessions as per nephrology recommendations. -Monitor i/o, and daily weight, 2 g diet, restrict fluid intake #Leukocytosis/elevated procalcitonin -Productive cough, leukocytosis, and elevated procalcitonin. Today, patient reports that her cough has been chronic since her last hospitalization in October and transferred to [facility] and there has been no change in her sputum production, and frequency. Reviewing her chest x-rays from October to the one done this admission the infiltrates appreciated remain the same. Her procalcitonin elevation can be explained by her end-stage renal disease. Considering, she is afebrile and with information provided by the pt we can follow her off antibiotics. She reports being recently treated for PNA at [facility]. Suspect her white count is likely reactive. #Asthma -No signs of acute exacerbation. Continue with Symbicort, and prn neb treatments. #Deconditioning -Recent hospitalization in October for chest pain as well as pneumonia reportedly at [facility]. Was unable to provide details, will try to obtain further information from family members. PT/OT #Obstructive sleep apnea -CPAP nightly #Chronic CAD status post stenting / CABG -Continue with aspirin, Plavix, and statin there # IDDM -Sliding scale, Accu-Cheks, hypoglycemic protocol #Hypothyroidism -Continue levothyroxine #Hypotension -Continue midodrine #Class 3 obesity -Complicates care #Right groin wound: Patient with recent intervention in July 2020; healing. Local wound care -Also note patient with bruising from previous hospital injection sites to pannusplan for monitoring #DVT px -Heparin Dispo: Once dialyzed on 11/20 and physical therapy recommendations she can be discharged back to [facility] Plan/VTE VTE Prophylaxis Ordered?: Yes VS, I&O, 24H, Fishbone Vital Signs/I&O Vital Signs Date Time Temp Pulse Resp B/P (MAP) Pulse Ox O2 Delivery O2 Flow Rate FiO2 11/19/20 08:29 98 123/72 11/19/20 06:00 96.5 14 98 Nasal Cannula 2.0 I&O- Last 24 Hours up to 6 AM 11/19/20 06:00 Intake Total 345 ml Output Total 2500 ml Balance -2155 ml Laboratory Data 24H LABS Laboratory Tests 2 11/18/20 16:27: Bedside Glucose (Misc Panel) 68L 11/18/20 20:35: Bedside Glucose (Misc Panel) 163H 11/19/20 05:53: Immature Granulocyte % (Auto) 0.9, Neutrophils (%) (Auto) 84.5H, Lymphocytes (%) (Auto) 6.3L, Monocytes (%) (Auto) 5.3, Eosinophils (%) (Auto) 2.5, Basophils (%) (Auto) 0.5, Neutrophils # (Auto) 10.4H, Lymphocytes # (Auto) 0.8L, Monocytes # (Auto) 0.7, Eosinophils # (Auto) 0.3, Basophils # (Auto) 0.1, Nucleated Red Blood Cells % (auto) 0.0, Anion Gap 8, Glomerular Filtration Rate 15.6L, Calcium Level 8.7L, Phosphorus Level 3.2, Magnesium Level 1.7L, Random Vancomycin Level 24.1 11/19/20 08:47: Methicillin-Resist S.aureus DNA PCR NOT DETECTED 11/19/20 11:59: Bedside Glucose (Misc Panel) 117H CBC/BMP Laboratory Tests 11/19/20 05:53 Microbiology Microbiology 11/19/20 Blood Culture, Received Pending 11/19/20 Blood Culture, Received Pending 11/18/20 Blood Culture - Preliminary, Resulted No growth after 24 hours . All specim... 11/17/20 Respiratory Virus Panel (PCR) ([facility]) - Final, Complete NATY KAUFMAN M.D. Nov 19, 2020 13:44
[2020-11-19] MEDS ORDERED: MAGNESIUM OXIDE 400MG TAB (MAG-OX) PO ONE (13:50)
[2020-11-19 14:00] VITALS: BP 124/61
[2020-11-19] MEDS ORDERED: **VANCO AFTER HD** MISC XX SCH (16:00)
[2020-11-19] MEDS ORDERED: VANCOMYCIN HCL 1,000 MG, VIAL MATE ADAPTER 1 EACH in NS 250 ML IV SCH (18:00)
[2020-11-19] MEDS: ATORVASTATIN 20 MG TAB PO SCH (20:39)
[2020-11-19 22:00] VITALS: BP 111/52
[2020-11-20 06:00] VITALS: BP 115/56
[2020-11-20] MEDS: LEVOTHYROXINE 125MCG TABLET (0.125MG) PO SCH (06:42)
[2020-11-20] MEDS: CALCITRIOL 0.25 MCG CAP (S0169) PO SCH (06:42)
[2020-11-20] MEDS: LACTOBACILLUS ACIDOPHILUS CAP (BACID) PO SCH (06:42)
[2020-11-20] MEDS: HEPARIN SOD (PORCINE) 5000UNITS/ML 1ML VIAL/SYRINGE SC SCH (06:42)
[2020-11-20 06:43] VITALS: BP 115/56
[2020-11-20] MEDS: ASPIRIN 81MG ENTERIC TABLET PO SCH (06:43)
[2020-11-20] MEDS: CLOPIDOGREL 75 MG TAB PO SCH (06:43)
[2020-11-20] MEDS: OMEPRAZOLE 20 MG CAP PO SCH (06:43)
[2020-11-20] MEDS: VITAMIN D 1,000 INTERNATIONAL UNITS TABLET PO SCH (06:43)
[2020-11-20] MEDS: FERROUS SULFATE 325MG TAB PO SCH (06:43)
[2020-11-20] MEDS: METOPROLOL TART 12.5 MG PER 1/2 TAB PO SCH (06:43)
[2020-11-20] MEDS: HumaLOG INSULIN (NovoLOG) PER UNIT SC SCH ×2 (07:30→12:00)
[2020-11-20 07:43] LABS: BASO # 0.1 10^3/uL (0.0-0.2); BASO % 0.8 % (0.0-1.0); EOS # 0.4 10^3/uL (0.0-0.5); EOS % 2.9 % (0.0-3.0); HEMOGLOBIN 9.5 g/dl (12.0-15.5); LYMPH % 8.6 % (24.0-44.0); MEAN CORPUSCULAR HEMOGLOBIN 28.6 pg (27.0-33.0); MEAN CORPUSCULAR HGB CONC 28.8 g/dl (32.0-36.5); MEAN CORPUSCULAR VOLUME 99.4 fl (80.0-96.0); MONO # 0.9 10^3/uL (0.0-0.8); MONO % 7.2 % (2.0-8.0); NEUTROPHILS # 9.5 10^3/uL (1.5-8.5); PLATELET COUNT, AUTOMATED 386 10^3/uL (150-450); RED BLOOD COUNT 3.32 10^6/uL (4.00-5.40)
[2020-11-20] MEDS: SYMBICORT 160/4.5MCG INHALER 6GM INH SCH (07:56)
[2020-11-20 08:24] LABS: CALCIUM LEVEL 9.2 MG/DL (8.8-10.2); CREATININE FOR GFR 4.5 MG/DL (0.55-1.30); GLOMERULAR FILTRATION RATE 10.3 (>39); MAGNESIUM LEVEL 1.9 MG/DL (1.8-2.4); PHOSPHORUS LEVEL 4.1 MG/DL (2.5-4.9); POTASSIUM SERUM 5.7 MEQ/L (3.5-5.1)
[2020-11-20] MEDS: TORSEMIDE 20 MG TAB PO SCH (09:00)
[2020-11-20] MEDS: IRON SUCROSE 100MG 5ML VIAL (J1756 PER 1MG) IV SCH (10:22)
--- NOTE | 2020-11-20 16:40 | DS.PDOC ---
Discharge Summary General Date of Admission Nov 17, 2020 at 14:34 Date of Discharge 11/20/20 Discharge Summary DISCHARGE DIAGNOSES: 1. End-stage renal disease, missed dialysis 2. Acute on chronic diastolic heart failure 3. Elevated leukocytosis/procalcitonin 4. Deconditioning 5. Diabetes mellitus COMPLICATIONS/CHIEF COMPLAINT: Missed Dialysis, Sob. HOSPITAL COURSE: Ms. Duran, presented to the emergency room department on 11/17/20 with complaints of shortness of breath and malaise. She had missed her dialysis session and was noted to be in acute on chronic diastolic heart failure. She was evaluated by the nephrology team and underwent additional dialysis session, with significant improvement in her symptoms. Upon initial presentation she was also noted to have leukocytosis as well as elevated procalcitonin and therefore was placed on empiric antibiotics. However, she expressed that the characteristics of her cough had not changed since her last admission in October that led to a transfer to [facility] where she was treated for pneumonia. Reviewing the chest x-ray from previous admission there was no new infiltrate. Therefore antibiotics were discontinued. Her procalcitonin was likely elevated in setting of end-stage renal disease. Her leukocytosis was likely reactive. She was asked to have repeat blood work done to ensure resolution. She was asked to have repeat chest x-ray done in 4 to 6 weeks to ensure resolution of the infiltrates appreciated again during this hospitalization. Of note, prior to discharge her blood glucose was documented at 66 she was as ymptomatic. [facility] contacted and made aware of the sugar and reported it was within normal limits now. Prior to leaving she did receive her reguular dialysis session. She must resume her regular dialysis sessions follow-up with her primary care physician as well as nephrology within 5 to 7 days. She is deconditioned and is encouraged to continue working with physical therapy when she returns to [place]. DISCHARGE MEDICATIONS: Please see below. ALLERGIES: Please see below. PHYSICAL EXAMINATION ON DISCHARGE: VITAL SIGNS: Please see below. General: Lying in bed, no acute distress Head/Neck/Throat: Trachea midline, mucous membranes moist Eyes: Sclera anicteric, no erythema or discharge appreciated bilaterally Thorax: Normal respiratory effort on 2 L nasal cannula, bibasilar crackles appreciated Cardiovascular: Normal rate, regular rhythm, normal S1, S2; radial and pedal pulses 2+, lower extremity edema Abdomen: Bowel sounds present, soft/nontender/nondistended Genitourinary: No CVA tenderness, no Gray in place Musculoskeletal: Moving all extremities, no edema Skin: Warm, dry Neurologic: AAOx3, speech fluent and goal-directed, no focal deficits, grossly intact LABORATORY DATA: Please see below. IMAGING: PORTABLE CHEST X-RAY FINDINGS: Evaluation is limited by portable technique. Dialysis catheter in stable position. Sternotomy and CABG again noted. Chronic cardiomegaly suggested. Mid to lower lobe opacities remain unchanged. No pneumothorax. IMPRESSION: Bilateral mid to lower lobe opacities unchanged. PROGNOSIS: Good ACTIVITY: As per physical therapy DIET: Renal DISPOSITION: 62 D/T Rehab Facility. DISCHARGE INSTRUCTIONS: 1. Follow-up with primary care physician as well as nephrology within 5-7 2. Have repeat blood work done as described above DISCHARGE CONDITION: Stable TIME SPENT ON DISCHARGE: 30 minutes. Vital Signs/I&Os Vital Signs Date Time Temp Pulse Resp B/P (MAP) Pulse Ox O2 Delivery O2 Flow Rate FiO2 11/20/20 09:00 2.0 11/20/20 06:43 92 115/56 11/20/20 06:00 97.2 15 95 Nasal Cannula I&O- Last 24 Hours up to 6 AM 11/20/20 06:00 Intake Total 345 ml Output Total 0 ml Balance 345 ml Laboratory Data Labs 24H Laboratory Tests 2 11/19/20 16:39: Bedside Glucose (Misc Panel) 82L 11/19/20 20:54: Bedside Glucose (Misc Panel) 92 11/20/20 06:50: Immature Granulocyte % (Auto) 1.5, Neutrophils (%) (Auto) 79.0H, Lymphocytes (%) (Auto) 8.6L, Monocytes (%) (Auto) 7.2, Eosinophils (%) (Auto) 2.9, Basophils (%) (Auto) 0.8, Neutrophils # (Auto) 9.5H, Lymphocytes # (Auto) 1.0L, Monocytes # (Auto) 0.9H, Eosinophils # (Auto) 0.4, Basophils # (Auto) 0.1, Nucleated Red Blood Cells % (auto) 0.3H, Anion Gap 7L, Glomerular Filtration Rate 10.3L, Calcium Level 9.2, Phosphorus Level 4.1#, Magnesium Level 1.9 11/20/20 08:27: Coronavirus (COVID-19)(PCR) NEGATIVE 11/20/20 12:56: Bedside Glucose (Misc Panel) 66L CBC/BMP Laboratory Tests 11/20/20 06:50 FSBS Laboratory Tests Test 11/19/20 16:39 11/19/20 20:54 11/20/20 12:56 Range/Units Bedside Glucose (Misc Panel) 82 92 66 83-110 MG/DL Microbiology Microbiology 11/19/20 Blood Culture - Preliminary, Resulted No growth after 24 hours . All specim... 11/19/20 Blood Culture - Preliminary, Resulted No growth after 24 hours . All specim... 11/18/20 Blood Culture - Preliminary, Resulted No Growth after 48 hours. All Specime... 11/17/20 Respiratory Virus Panel (PCR) ([facility]) - Final, Complete Discharge Medications Scheduled Aspirin (Aspirin EC) 81 Mg Tab, 81 MG PO DAILY, (Reported) Atorvastatin Calcium (Atorvastatin Calcium) 40 Mg Tab, 40 MG PO QHS, (Reported) Budesonide/Formoterol (Symbicort 160-4.5 Mcg Inhaler) 6 Gm Hfa.aer.ad, 2 PUFF INH BID, (Reported) Calcitriol (Calcitriol) 0.25 Mcg Cap, 0.25 MCG PO DAILY, (Reported) Cholecalciferol (Vitamin D3) (Vitamin D3) 1,000 Unit Tablet, 1,000 UNITS PO DAILY, (Reported) Clopidogrel Bisulfate (Clopidogrel) 75 Mg Tablet, 75 MG PO DAILY, (Reported) Ferrous Sulfate (Ferrous Sulfate) 325 Mg Tablet, 325 MG PO DAILY, (Reported) Insulin Glargine,Hum.rec.anlog (Lantus Solostar) 100 Unit/1 Ml Insuln.pen, 30 UNITS SC DAILY, (Reported) Insulin Lispro (Insulin Lispro) 100 Unit/1 Ml Vial, 1 DOSE SC AC, (Reported) SLIDING SCALE: 151-200 GIVE 2 UNITS 201-250 GIVE 4 UNITS 251-300 GIVE 6 UNITS 301-350 GIVE 8 UNITS 351-400 GIVE 10 UNITS 401-450 GIVE 12 UNITS L.acidoph/L.bulg/B.bif/S.therm (Bacid Caplet) 1 Each Tablet, 1 TAB PO BID, (Reported) Levothyroxine Sodium (Levothyroxine Sodium) 125 Mcg Tablet, 125 MCG PO DAILY, (Reported) Metoprolol Tartrate (Metoprolol Tartrate) 25 Mg Tablet, 12.5 MG PO TID, (Reported) Omeprazole (Omeprazole) 20 Mg Capsule.dr, 20 MG PO DAILY, (Reported) Torsemide (Torsemide) 20 Mg Tablet, 20 MG PO 4XWK, (Reported) TAKES 20MG BID ON TUESDAY, TUESDAY, TUESDAY AND TUESDAY Scheduled PRN Albuterol Sulfate (Ventolin Hfa) 108 Mcg/Act Aer, 2 PUFFS INH Q4H PRN for SHORTNESS OF BREATH, (Reported) Guaifenesin (Guaifenesin) 100 Mg/5 Ml Liquid, 100 MG PO Q4H PRN for CONGESTION, (Reported) Midodrine HCl (Midodrine HCl) 10 Mg Tablet, 10 MG PO TID PRN for HYPOTENSION, (Reported) Nitroglycerin (Nitrostat) 0.4 Mg Subl, 0.4 MG SL NITRO PRN for CHEST PAIN, (Reported) Allergies Coded Allergies: cephalexin (Verified Allergy, Severe, RASH, DYSPNEA, 11/05/19) gatifloxacin (Verified Allergy, Severe, RASH, DYSPNEA, 11/05/19) tramadol (Verified Allergy, Severe, RASH, DYSPNEA, 11/05/19) silver nitrate (Verified Allergy, Intermediate, HIVES, RASH, 11/05/19) chlorhexidine (Verified Allergy, Mild, RASH, 11/05/19) latex (Verified Allergy, Mild, RED, SWOLLEN, RASH, 11/05/19) nitrofurantoin (Verified Allergy, Mild, RASH, 11/05/19) sulfamethoxazole (Verified Adverse Reaction, Intermediate, EFFECTS KIDNEY FUNCTION, 11/05/19) trimethoprim (Verified Adverse Reaction, Intermediate, EFFECTS KIDNEY FUNCTION, 11/05/19) NATY KAUFMAN M.D. Nov 20, 2020 16:40
--- NOTE | 2020-11-20 17:11 | IPNPDOC ---
Subjective CC/HPI The patient is a 70-year-old female admitted with a reason for visit of Missed Dialysis, Sob. Events since last encounter Pt was seen in AM. She was tolerating Hd. Denies any active complaints. General: Reports: Fatigue, Malaise; Denies: Chills, Night Sweats Constitutional: Reports: Malaise; Denies: Chills, Fever Eyes: Denies: Pain, Vision change ENT: Denies: Head Aches, Ear Pain Skin: Denies: Rash, Lesions Pulmonary: Reports: Dyspnea (Weaing O2); Denies: Cough Cardiovascular: Denies: Chest Pain, Palpitations Gastrointestinal: Denies: Nausea, Vomiting Genitourinary: Denies: Dysuria, Frequency Hematologic: Denies: Bruising, Bleeding Excessively Musculoskeletal: Denies: Neck Pain, Back Pain Neurological: Reports: Weakness Psych: Reports: Mood Normal Objective Physical Examination General Exam: Alert, No Acute Distress EYE EXAM: PERRLA, Conjunctiva & lids normal ENT EXAM: Atraumatic, Mucous membr. moist/pink Neck Exam: Supple, JVD (mild) Chest Exam: Clear to auscultation, Normal air movement (Wearing NC), Diminished (at bases,) Heart Exam: Rate Normal; No: Murmurs, Rubs ABDOMEN EXAM: Normal bowel sounds, Soft; No: Tenderness Extremity Exam: No: Clubbing, Cyanosis Skin Exam: Nl turgor and temperature; No: Rash Neuro Exam: Normal Speech Psych Exam: Mental status NL, Mood NL, Oriented x 3 Vital Signs/I&O Vital Signs Date Time Temp Pulse Resp B/P (MAP) Pulse Ox O2 Delivery O2 Flow Rate FiO2 11/20/20 09:00 2.0 11/20/20 06:43 92 115/56 11/20/20 06:00 97.2 15 95 Nasal Cannula I&O- Last 24 Hours up to 6 AM 11/20/20 06:00 Intake Total 345 ml Output Total 0 ml Balance 345 ml Laboratory Data Labs 24H Laboratory Tests 2 11/19/20 20:54: Bedside Glucose (Misc Panel) 92 11/20/20 06:50: Immature Granulocyte % (Auto) 1.5, Neutrophils (%) (Auto) 79.0H, Lymphocytes (%) (Auto) 8.6L, Monocytes (%) (Auto) 7.2, Eosinophils (%) (Auto) 2.9, Basophils (%) (Auto) 0.8, Neutrophils # (Auto) 9.5H, Lymphocytes # (Auto) 1.0L, Monocytes # (Auto) 0.9H, Eosinophils # (Auto) 0.4, Basophils # (Auto) 0.1, Nucleated Red Blood Cells % (auto) 0.3H, Anion Gap 7L, Glomerular Filtration Rate 10.3L, Calcium Level 9.2, Phosphorus Level 4.1#, Magnesium Level 1.9 11/20/20 08:27: Coronavirus (COVID-19)(PCR) NEGATIVE 11/20/20 12:56: Bedside Glucose (Misc Panel) 66L CBC/BMP Laboratory Tests 11/20/20 06:50 FSBS Laboratory Tests Test 11/19/20 20:54 11/20/20 12:56 Range/Units Bedside Glucose (Misc Panel) 92 66 83-110 MG/DL Current Medications Current Medications Medications (Trade) Dose Ordered Sig/Travis Route PRN Reason Start Time Stop Time Status Last Admin Dose Admin Acetaminophen (Tylenol Tab) 650 mg Q4H PRN PO MILD PAIN or TEMP > 101 11/17/20 18:50 11/20/20 14:29 DC Albuterol/ Ipratropium (Duoneb (Ipr 0.5mg/Alb 2.5mg)) 3 ml Q6HP PRN NEB SOB/WHEEZE 11/17/20 18:50 11/20/20 14:29 DC Aspirin (Ecotrin) 81 mg DAILY PO 11/18/20 09:00 11/20/20 14:29 DC 11/20/20 06:43 Atorvastatin Calcium (Lipitor) 40 mg QHS PO 11/17/20 21:00 11/20/20 14:29 DC 11/19/20 20:39 Benzonatate (Tessalon Perles) 100 mg TIDP PRN PO COUGH 11/17/20 20:20 11/20/20 14:29 DC Budesonide/ Formoterol Fumarate (Symbicort 160/ 4.5mcg) 2 puff RBID INH 11/18/20 08:00 11/20/20 14:29 DC 11/20/20 07:56 Calcitriol (Rocaltrol) 0.25 mcg DAILY PO 11/18/20 09:00 11/20/20 14:29 DC 11/20/20 06:42 Clopidogrel Bisulfate (PLAVix) 75 mg DAILY PO 11/18/20 09:00 11/20/20 14:29 DC 11/20/20 06:43 Darbepoetin Jonathan (Aranesp (Dialysis Use)) 200 mcg HD IV 11/18/20 09:00 11/20/20 14:29 DC 11/18/20 11:11 Dextrose (Dextrose 50%) 25 ml ASDIRECTED PRN IV SEE LABEL COMMENTS 11/17/20 18:50 11/20/20 14:29 DC Ferrous Sulfate (Ferrous Sulfate) 325 mg DAILY PO 11/18/20 09:00 11/20/20 14:29 DC 11/20/20 06:43 Glucagon (Glucagon) 1 mg ASDIRECTED PRN SC SEE LABEL COMMENTS 11/17/20 18:50 11/20/20 14:29 DC Glucose (Glucose) 16 GM ASDIRECTED PRN PO SEE LABEL COMMENTS 11/17/20 18:50 11/20/20 14:29 DC Guaifenesin (Robitussin) 5 ml Q4H PRN PO CONGESTION 11/17/20 20:40 11/20/20 14:29 DC Heparin Sodium (Heparin) Please refer to ... ASDIRECTED XX 11/18/20 06:00 11/19/20 05:59 DC Heparin Sodium (Heparin) Please refer to ... ASDIRECTED XX 11/20/20 07:50 11/20/20 14:29 DC Heparin Sodium (Heparin) dose as per volume indica... ASDIRECTED PRN IV SEE LABEL COMMENTS 11/17/20 23:10 11/18/20 23:09 DC Heparin Sodium (Heparin) dose as per volume indica... ASDIRECTED PRN IV SEE LABEL COMMENTS 11/20/20 07:50 11/20/20 14:29 DC Heparin Sodium (Porcine) (Heparin) 5,000 units Q8H SC 11/17/20 22:00 11/20/20 14:29 DC 11/20/20 06:42 Home Med (Home Med List Complete!) ASDIRECTED XX 11/17/20 18:55 11/17/20 18:59 DC Insulin Detemir (Levemir Insulin) 30 units DAILY SC 11/18/20 09:00 11/18/20 18:23 DC 11/18/20 07:49 Insulin Human Lispro (HumaLOG INSULIN) See Protocol Table AC SC 11/18/20 07:30 11/20/20 14:29 DC Insulin Human Lispro (HumaLOG INSULIN) See Protocol Table QHS SC 11/17/20 21:00 11/20/20 14:29 DC Iron (Venofer) 100 mg HD IV 11/18/20 09:00 11/20/20 14:29 DC 11/20/20 10:22 Lactobacillus Acidophilus (Bacid) 1 ea BIDWM PO 11/18/20 08:00 11/20/20 14:29 DC 11/20/20 06:42 Levothyroxine Sodium (Synthroid) 125 mcg DAILY@0600 PO 11/18/20 06:00 11/20/20 14:29 DC 11/20/20 06:42 Metoprolol Tartrate (Lopressor) 12.5 mg TID PO 11/17/20 21:00 11/20/20 14:29 DC 11/20/20 06:43 Midodrine (Proamatine) 10 mg TID PRN PO HYPOTENSION SBP <100 11/17/20 20:40 11/20/20 14:29 DC Nitroglycerin (Nitrostat (1/ 150)) 0.4 mg Q5M PRN SL CHEST PAIN 11/17/20 20:40 11/20/20 14:29 DC Non-Formulary Medication ( See Comment Field Below ) CHECK TO SEE IF THE PATIENT... DAILY@1600 XX 11/19/20 16:00 11/20/20 14:29 DC Omeprazole (PriLOSEC) 20 mg DAILY PO 11/18/20 09:00 11/20/20 14:29 DC 11/20/20 06:43 Piperacillin Sod/ Tazobactam Sod 2.25 gm/Dextrose 50 ml @ 50 mls/hr Q8H IV 11/18/20 18:00 11/19/20 15:51 DC 11/19/20 10:29 Torsemide (Demadex) 20 mg SuTuThSa@0900 PO 11/18/20 09:00 11/20/20 14:29 DC 11/18/20 07:50 Torsemide (Demadex) 20 mg SuTuThSa@1700 PO 11/18/20 17:00 11/20/20 14:29 DC 11/18/20 16:30 Vancomycin HCl 1000 mg/IV Miscellaneous Supplies 1 each/ Sodium Chloride 270 ml @ 270 mls/hr HD IV 11/19/20 18:00 11/19/20 15:51 DC Vancomycin HCl / IV Miscellaneous Supplies 0 ml @ 0 mls/hr Q12H IV 11/18/20 17:15 11/18/20 18:13 DC Vitamin D (Vitamin D) 1,000 units DAILY PO 11/18/20 09:00 11/20/20 14:29 DC 11/20/20 06:43 Allergies Coded Allergies: cephalexin (Verified Allergy, Severe, RASH, DYSPNEA, 11/05/19) gatifloxacin (Verified Allergy, Severe, RASH, DYSPNEA, 11/05/19) tramadol (Verified Allergy, Severe, RASH, DYSPNEA, 11/05/19) silver nitrate (Verified Allergy, Intermediate, HIVES, RASH, 11/05/19) chlorhexidine (Verified Allergy, Mild, RASH, 11/05/19) latex (Verified Allergy, Mild, RED, SWOLLEN, RASH, 11/05/19) nitrofurantoin (Verified Allergy, Mild, RASH, 11/05/19) sulfamethoxazole (Verified Adverse Reaction, Intermediate, EFFECTS KIDNEY FUNCTION, 11/05/19) trimethoprim (Verified Adverse Reaction, Intermediate, EFFECTS KIDNEY FUNCTION, 11/05/19) Assessment/Plan Date Seen The patient was seen on 11/20/20 in AM during HD. Plan / VTE VTE Prophylaxis Ordered?: Yes Plan Orders past 48 Hours Orders Sputum Culture And Gram Stain (11/18/20 16:58) Piperacillin/Tazobactam Sod (Zosyn) (11/18/20 18:00) Vancomycin Hcl (Vancomycin Hcl) (11/18/20 17:15) Pharmacy Vancomycin Consult (11/18/20 17:15) Obtain Old Records Inpatient (11/18/20 17:21) Consistent Carbohydrates (11/18/20 Dinner) Vancomycin Hcl (Vancomycin Hcl)... (11/19/20 18:00) Note Patient Comment ( See Comment (11/19/20 16:00) Urine Strep Pneumoniae Antigen (11/18/20 18:20) Legionella Antigen Urine (11/18/20 18:20) Pt Eval & Tx As Needed (11/18/20 18:21) Ot Eval & Treat As Needed (11/18/20 18:21) Vancomycin Hcl (Vancomycin Hcl)... (11/18/20 21:00) Vancomycin Hcl (Vancomycin Hcl)... (11/18/20 22:00) Fingerstick Blood Sugar (11/18/20 20:35) Phosphorous Level (11/19/20 06:00) * Nursing Order * (11/18/20 21:16) Blood Cultures (11/19/20 07:14) Blood Cultures (11/19/20 07:34) Mrsa Pcr Screen (11/19/20 07:48) Vancomycin Random (11/19/20 05:53) Fingerstick Blood Sugar (11/19/20 11:59) Dc Telemetry (11/19/20 12:29) Magnesium Oxide (Mag-Ox) (11/19/20 13:50) Fingerstick Blood Sugar (11/19/20 16:39) Fingerstick Blood Sugar (11/19/20 20:54) Phosphorous Level (11/20/20 06:00) Early Tray (11/20/20 06:11) Hemodialysis Acute Orders (11/20/20 07:48) Heparin (Heparin) (11/20/20 07:50) Heparin (Heparin) (11/20/20 07:50) Sars Covid-19 Amplification (11/20/20 08:17) Early Tray (11/20/20 12:00) Discharge/Transfer Order (11/20/20 11:12) Patient Discharge Instruction (11/20/20 11:12) Fingerstick Blood Sugar (11/20/20 12:56) Plan Text 1. Dyspnea/Acute HFpEF Exacerbation: Better volume status. Further fluid being removed now. 2.ESRD on HD: HD being done now. 3. Infiltrates on CXR, Possible HCAP: Pt is on empiric Abx coverage. 4. Hypotension: Continue midodrine 5.Anemia: Venofer and Aranesp. 6.hyperkalemia: HD with 2K bath initially and 1K bath in last hour. 7.SHPT: Continue calcitriol. BETTY MILLER MD Nov 20, 2020 17:11
== END 2020-11-20 14:10 ==
LOC: M ED 14:33 → M ED INP 14:34 → UNDOADMOB 18:47 → M MSPAV 21:50
PROVIDERS: ADMIT Internal Medicine; ATTEND Internal Medicine
DX: I50.33 Acute on chronic diastolic (congestive) heart failure (principal); Z91.15 Patient's noncompliance with renal dialysis; N18.6 End stage renal disease; I12.0 Hypertensive chronic kidney disease with stage 5 chronic kidney disease or end stage renal disease; D72.829 Elevated white blood cell count, unspecified; E22.1 Hyperprolactinemia; E11.9 Type 2 diabetes mellitus without complications; Z72.3 Lack of physical exercise; I25.10 Atherosclerotic heart disease of native coronary artery without angina pectoris; Z95.1 Presence of aortocoronary bypass graft; Z79.01 Long term (current) use of anticoagulants; Z79.82 Long term (current) use of aspirin; Z79.4 Long term (current) use of insulin; Z79.899 Other long term (current) drug therapy; Z88.1 Allergy status to other antibiotic agents; Z91.040 Latex allergy status; Z88.8 Allergy status to other drugs, medicaments and biological substances
CPT/HCPCS: 36415; 71045; 80048; 80076; 80202; 82550; 82553; 82607; 82728; 82746; 83550; 83605; 83735; 83880; 84100; 84145; 84443; 84484; 85025; 87040; 87641; 87798; 93005; 93041; 94640; 94760; 96365; 96366; 96367; 96372; 96375; 96376; 97161; 97165; 97530; 99285; G0257; G0378; J0882; J1644; J1756; J2543; J3370; U0002

== ENCOUNTER 2020-11-26 15:28 | Inpatient (IN) | payer MEDICARE ==
[~2020-11-26] VITALS: Ht 142.2 cm; Wt 75.0 kg
--- NOTE | 2020-11-26 16:29 | REP ---
INDICATION: DYSPNEA/COUGH. COMPARISON: 11/17/2020 the latest prior also portable TECHNIQUE: Portable FINDINGS: The technique utilized in obtaining the radiograph has magnified the cardiac silhouette and accentuated the interstitial markings. The cardiomediastinal silhouette is unchanged. Note is again made of previous median sternotomy and cardiomegaly accentuated by technique. The intravascular catheter is unchanged. There is no significant change in appearance of the lung aquino. They are hypoexpanded with a diffuse increase in the interstitial markings. There is a stable right lower lobe opacity. There is no significant change in the osseous structures. IMPRESSION: No significant change. Findings as described above. Mild interstitial edema is suspected. Pneumonia cannot be ruled out. <Electronically signed by Jayant Jordan > 11/26/20 [id number]
[2020-11-26] MEDS ORDERED: dexameTHASONE 4 MG/ML 1ML VIAL (J1100 PER 1MG) IV ONE (18:00)
[2020-11-26] MEDS: COMBIVENT RESPIMAT 100-20MCG INHALER 4GM INH SCH ×3 (18:12→18:46)
[2020-11-26 18:16] LABS: BASO # 0.1 10^3/uL (0.0-0.2); BASO % 0.5 % (0.0-1.0); EOS # 0.1 10^3/uL (0.0-0.5); EOS % 0.5 % (0.0-3.0); HEMATOCRIT 32.5 % (36.0-47.0); HEMOGLOBIN 9.4 g/dl (12.0-15.5); LYMPH % 4.4 % (24.0-44.0); MEAN CORPUSCULAR HEMOGLOBIN 28.8 pg (27.0-33.0); MEAN CORPUSCULAR HGB CONC 28.9 g/dl (32.0-36.5); MEAN CORPUSCULAR VOLUME 99.7 fl (80.0-96.0); MONO # 1.1 10^3/uL (0.0-0.8); MONO % 4.4 % (2.0-8.0); NEUTROPHILS # 21.1 10^3/uL (1.5-8.5); NEUTROPHILS % 88.5 % (36.0-66.0); PLATELET COUNT, AUTOMATED 287 10^3/uL (150-450); RED BLOOD COUNT 3.26 10^6/uL (4.00-5.40); WHITE BLOOD COUNT 23.8 10^3/uL (4.0-10.0)
[2020-11-26 18:41] LABS: ABG HCO3 28.1 MEQ/L (22.0-26.0); ABG STANDARD HCO3 24.4 MEQ/L (22.0-26.0); ABG TOTAL CO2 30.1 MEQ/L (23.0-31.0); ABG pH (ARTERIAL) 7.252 UNITS (7.350-7.450)
[2020-11-26 19:11] LABS: ALBUMIN 2.4 GM/DL (3.2-5.2); ALT/SGPT 21 U/L (12-78); BILIRUBIN,DIRECT 0.1 MG/DL (0.0-0.2); BILIRUBIN,TOTAL 0.4 MG/DL (0.2-1.0); BLOOD UREA NITROGEN 5 MG/DL (7-18); CALCIUM LEVEL 9.1 MG/DL (8.8-10.2); CARBON DIOXIDE LEVEL 30 MEQ/L (21-32); CHLORIDE LEVEL 101 MEQ/L (98-107); CK-MB VALUE MASS 1.9 NG/ML (<3.6); CPK CREATINE PHOSPHOKINASE 32 U/L (26-192); GLOMERULAR FILTRATION RATE 23.4 (>39); GLUCOSE, FASTING 79 MG/DL (70-100); MB/CK RELATIVE INDEX 5.94 (< OR =4); NT-PRO BNP 2555 PG/ML (<125); SODIUM LEVEL 137 MEQ/L (136-145); TOTAL PROTEIN 6.5 GM/DL (6.4-8.2); TROPONIN I < 0.02 NG/ML (< 0.10)
[2020-11-26 19:19] LABS: ABG PARTIAL PRESSURE CO2 65.3 mmHg (35.0-45.0)
[2020-11-26] MEDS ORDERED: PIPERACILLIN/TAZOBACTAM SOD 4.5 GM in D5W MINI-BAG PLUS 50 ML IV ONE (19:35)
[2020-11-26] MEDS: SYMBICORT 160/4.5MCG INHALER 6GM INH SCH (20:00)
--- NOTE | 2020-11-26 20:42 | REPVR ---
PROCEDURE INFORMATION: Exam: CT Chest Without Contrast; Diagnostic Exam date and time: 11/26/2020 7:05 PM Age: 70 years old Clinical indication: Shortness of breath; Additional info: SOB, pneumonia vs pleural effusion TECHNIQUE: Imaging protocol: Diagnostic computed tomography of the chest without contrast. 3D rendering (Not supervised by radiologist): MIP and/or 3D reconstructed images were created by the technologist. Radiation optimization: All CT scans at this facility use at least one of these dose optimization techniques: automated exposure control; mA and/or kV adjustment per patient size (includes targeted exams where dose is matched to clinical indication); or iterative reconstruction. COMPARISON: CT Chest without contrast 11/05/2020 7:13 PM FINDINGS: Lungs: There is consolidation of several segments right lower lobe consistent with atelectasis and pneumonia. This may be the result of a lobar pneumonia. There is linear atelectasis and infiltrate at the left upper lobe. Pleural spaces: There is a small left pleural effusion. Heart: The heart is normal in size and there is no pericardial effusion the aorta is normal in size with atherosclerotic plaque formation that is calcified. Lymph nodes: Unremarkable. No enlarged lymph nodes. Gallbladder and bile ducts: There is distention of the gallbladder consistent with mild hydrops the and measuring 4.3 cm in transverse dimension. Bones/joints: Very severe degenerative and arthritic change left shoulder. IMPRESSION: 1. Several segments of consolidated lung right lower lobe with air bronchograms consistent with atelectasis and pneumonia right lower lobe. 2. There is discoid atelectasis and infiltrate at the left mid lung field/lingula. 3. The gallbladder measures 4.3 cm and probable mild hydrops. Electronically signed by: David Horn On 11/26/2020 20:42:11 PM
[2020-11-26] MEDS: LEVEMIR (INSULIN DETEMIR) 1 UNITS/0.01ML SC SCH (21:00)
[2020-11-26] MEDS: HumaLOG INSULIN (NovoLOG) PER UNIT SC SCH (21:00)
[2020-11-26] MEDS: METOPROLOL TART 12.5 MG PER 1/2 TAB PO SCH (21:00)
[2020-11-26] MEDS: ATORVASTATIN 20 MG TAB PO SCH (21:00)
[2020-11-26] MEDS ORDERED: GLUCAGON INJ 1MG VIAL SC PRN (21:20)
[2020-11-26] MEDS ORDERED: DEXTROSE 50% 50 ML SYRINGE IV PRN (21:20)
[2020-11-26] MEDS ORDERED: MOM 30ML SUSPENSION UDC PO PRN (21:20)
[2020-11-26] MEDS ORDERED: GLUCOSE 4GM CHEW TABLET PO PRN (21:20)
[2020-11-26] MEDS ORDERED: ACETAMINOPHEN TAB 650MG DOSE (2X325MG) PO PRN (21:20)
[2020-11-26] MEDS ORDERED: TORS20TA2 PO (21:39)
[2020-11-26 21:40] LABS: ABG BASE EXCESS -1.7 (-2.0-2.0); ABG HCO3 25.9 MEQ/L (22.0-26.0); ABG O2 SATURATION 98.5 % (95.0-99.0); ABG PARTIAL PRESSURE CO2 58.5 mmHg (35.0-45.0); ABG PARTIAL PRESSURE O2 117.3 mmHg (75.0-100.0); ABG STANDARD HCO3 23.1 MEQ/L (22.0-26.0); ABG TOTAL CO2 27.7 MEQ/L (23.0-31.0); ABG pH (ARTERIAL) 7.264 UNITS (7.350-7.450)
[2020-11-26] MEDS ORDERED: HOME MED LIST COMPLETE! XX SCH (21:45)
[2020-11-26] MEDS ORDERED: IPRATROPIUM 0.5MG/ALBUTEROL 2.5MG INH SOL UD 3ML (DUONEB) NEB PRN (22:25)
[2020-11-26 22:40] LABS: MAGNESIUM LEVEL 1.8 MG/DL (1.8-2.4)
[2020-11-26] MEDS ORDERED: VANCOMYCIN HCL 1,000 MG, VIAL MATE ADAPTER 1 EACH in NS 250 ML IV SCH ×2 (22:40→22:55)
[2020-11-26] MEDS ORDERED: guaiFENesin SYRUP 200 MG/10 ML UDC PO PRN (22:40)
[2020-11-26] MEDS ORDERED: ALBUTEROL 90 MCG/ACT 8GM HFA INHALER INH PRN (22:40)
--- NOTE | 2020-11-26 22:47 | HPEPDOC ---
General Date of Admission Nov 26, 2020 at 20:12 Date of Service: Nov 26, 2020 Attending Physician: NELLA DAWKINS MD Chief Complaint The patient is a 70-year-old female admitted with a reason for visit of Acute Rf, Leukocytosis, Pneumonia, Sob. History of Present Illness History of present illness: Mrs. Duran is a pleasant 70 year old female who presented to the emergency room from hemodialysis with shortness of breath, runny nose, and cough of two days duration after being found to have an oxygen saturation in the mid 70's during hemodialysis. She was picked up by EMS and placed on 4L of O2 which increased her O2 saturations into the 90's. She states that she has had shortness of breath, a runny nose, and a non productive cough for the last few days. She denies chest pain, fever, chills, or coughing up any mucous. Patient is a resident of the [facility]. Mrs. Duran was recently hospitalized at [facility] on 11/17/20, 10/20/20, and 10/11/20 for shortness of breath, CHF exacerbation, and acute on chronic respiratory failure respectfully. The patient is a poor historian and is on Bipap machine when I spoke to her. It is difficult to get a thorough history from her at this time. In the emergency department she was found to be in respiratory failure and put on BIPAP. Left external jugular venous access was established but the patient pulled this out. Past medical history: ESRD with Hemodialysis on MWF schedule CAD s/p CABG 07/2020 Chronic HFpEF Pulmonary HTN Insulin Dependent Diabetes Mellitus Asthma GERD Hypothyroidism Diverticulosis History of GI bleed DIXON PVD Past surgical history: Appendectomy Cataract surgery Carpal tunnel surgery Tonsillectomy Left ankle fracture repair Social history: Patient denies tobacco, alcohol or illicit drug use. Family history: Non contributory Allergies: Please see below Review of systems: General: Patient denies fevers, chills. Patient admits to feeling fatigued HEENT: Patient denies changes in vision, swollen glands, or difficulty swallowing. Patient admits to having a "runny nose". Cardiovascular: Patient denies chest pain or palpitations Respiratory: Patient admits to feeling short of breath and having a cough for the last few days GI: Patient denies abdominal pain, nausea, vomiting, diarrhea, or noticing blood in stool or urine. Patient admits to having bruising on anterior portion of lower abdomen secondary to medication injections Extremities: Patient denies swelling or pain in extremities. She admits to easy bruising. Skin: patient admits to having pressure ulcers on her buttocks as well as a wound on the skin fold of her groin on the right Physical examination: General: An elderly female sitting in bed in no acute distress. She is alert and currently breathing on BIPAP machine. I am unable to get a thorough history from her secondary to BIPAP machine. HEENT: Normocephalic, atraumatic, moist mucous membranes, no lymphadenopathy noted Cardiac: Rate and rhythm are regular with HR around 70. Heart sounds are distant and it is difficult to assess for murmurs secondary to BIPAP machine Pulm: Equal air intake bilaterally, no rhonchi or wheezes appreciated. Abd: Nondistended, nontender to palpation, normal bowel sounds. A large area of ecchymosis is present on her lower abdomen that spans the majority of her panniculus and is roughly 12 inches in width. There is an area within the ecchymotic area that is hard to the touch and measures roughly 3 inches in diameter. Skin: Patient has two stage 1 pressure ulcers on her buttocks that are covered with a foam dressing. There is a superficial erythematous wound noted in the skin folds between her abdominal panniculus and right groin. This open is exuding a clear fluid and appears to be moist and healing. This area measures 4 inches in diameter. Ext: No edema present on bilateral lower extremities Imaging: Chest x-ray: 11/26/20: IMPRESSION: No significant change. Findings as described above. Mild interstitial edema is suspected. Pneumonia cannot be ruled out. Chest CT 11/26/20: IMPRESSION: Several segments of consolidated lung right lower lobe with air bronchograms consistent with atelectasis and pneumonia right lower lobe. There is discoid atelectasis and infiltrate at the left mid lung field/lingula. The gallbladder measures 4.3 cm and probable mild hydrops. Assessment: 70-year-old female with past medical history of ESRD with Hemodialysis, CAD s/p CABG 07/2020, Chronic HFpEF, Pulmonary HTN, Insulin Dependent Diabetes Mellitus, Asthma, GERD, Hypothyroidism, Diverticulosis, History of GI bleed, DIXON, and PVD who presented to the ED from dialysis after becoming hypoxic during hemodialysis treatment. She was found to be in respiratory failure and was placed on BIPAP machine. She is being admitted for acute on chronic respiratory failure as well as treatment for suspected pneumonia. Plan: Acute on chronic respiratory failure -ABG upon presentation: pH 7.25 pCO2 65.3 which downtrended to 58.5 after being placed on BIPAP. -BIPAP Settings: 20/8, rate 18, Fi02 35% -Dr. Thompson was consulted on this patient, we appreciate his input. He will visit patient in the AM and would like peripheral access established. He is content with current BIPAP settings. -Repeat ABG ordered for AM Community acquired pneumonia -Chest x ray and Chest CT results as above -WBC 23.8 -Blood cultures are pending, procalcitonin 1.03 (antibiotics are strongly encouraged), lactic acid wnl -Started patient on vancomycin and zosyn. Ordered MRSA PCR, can discontinue vancomycin if MRSA negative -CURB-65 score is 1 low risk ESRD with Hemodialysis on MWF schedule -Consulted nephrology -Creatinine 2.2, GFR 23.4. Patient is below baseline History of GI bleed -The nurse noticed patient's stool appeared black and tarry -Patient is on ferrous sulfate -Ordered stool occult blood test, awaiting results -Hemoglobin is stable at 9.2 Chronic HFpEF -NT pro BNP 2555 -patient does not appear fluid overloaded on PE -Will continue to monitor fluid status -continue torsemide and metoprolol Insulin Dependent Diabetes Mellitus -started insulin sliding scale q AC/HS -started insulin detemir 15 units q hs -continue consistent carbohydrate diet Asthma -continue at home inhalers -Duonebs ordered prn for shortness of breath and wheezing GERD -continue omeprazole Hypothyroidism -continue levothyroxine Diverticulosis -continue colace DIXON -patient currently on BIPAP CAD s/p CABG 07/2020 -troponin is wnl -patient denies chest pain DVT prophylaxis: -Continue with heparin Disposition: Patient is currently stable on BIPAP in ICU, will continue to monitor respiratory status. We appreciate Dr. Thompson for his input, he will evaluate patient in the AM. Will continue treatment for pneumonia, will disco ntinue vancomycin is MRSA PCR is negative. Home Medications Scheduled Aspirin (Aspirin EC) 81 Mg Tab, 81 MG PO DAILY, (Reported) Atorvastatin Calcium (Atorvastatin Calcium) 40 Mg Tab, 40 MG PO QHS, (Reported) Budesonide/Formoterol (Symbicort 160-4.5 Mcg Inhaler) 6 Gm Hfa.aer.ad, 2 PUFF INH BID, (Reported) Calcitriol (Calcitriol) 0.25 Mcg Cap, 0.25 MCG PO DAILY, (Reported) Cholecalciferol (Vitamin D3) (Vitamin D3) 1,000 Unit Tablet, 1,000 UNITS PO DAILY, (Reported) Clopidogrel Bisulfate (Clopidogrel) 75 Mg Tablet, 75 MG PO DAILY, (Reported) Ferrous Sulfate (Ferrous Sulfate) 325 Mg Tablet, 325 MG PO DAILY, (Reported) Insulin Glargine,Hum.rec.anlog (Lantus Solostar) 100 Unit/1 Ml Insuln.pen, 30 UNITS SC DAILY, (Reported) Insulin Lispro (Insulin Lispro) 100 Unit/1 Ml Vial, 1 DOSE SC AC, (Reported) SLIDING SCALE: 151-200 GIVE 2 UNITS 201-250 GIVE 4 UNITS 251-300 GIVE 6 UNITS 301-350 GIVE 8 UNITS 351-400 GIVE 10 UNITS 401-450 GIVE 12 UNITS L.acidoph/L.bulg/B.bif/S.therm (Bacid Caplet) 1 Each Tablet, 1 TAB PO BID, (Reported) Levothyroxine Sodium (Levothyroxine Sodium) 125 Mcg Tablet, 125 MCG PO DAILY, (Reported) Metoprolol Tartrate (Metoprolol Tartrate) 25 Mg Tablet, 12.5 MG PO TID, (Reported) Omeprazole (Omeprazole) 20 Mg Capsule.dr, 20 MG PO DAILY, (Reported) Torsemide (Torsemide) 20 Mg Tablet, 20 MG PO 4XWK, (Reported) TAKES ADDITIONAL 20MG TAB ON NON-DIALYSIS DAYS SUN, , , SAT Torsemide (Torsemide) 20 Mg Tablet, 20 MG PO DAILY, (Reported) Scheduled PRN Albuterol Sulfate (Ventolin Hfa) 108 Mcg/Act Aer, 2 PUFFS INH Q4H PRN for SHORTNESS OF BREATH, (Reported) Guaifenesin (Guaifenesin) 100 Mg/5 Ml Liquid, 100 MG PO Q4H PRN for CONGESTION, (Reported) Midodrine HCl (Midodrine HCl) 10 Mg Tablet, 10 MG PO TID PRN for HYPOTENSION, (Reported) Nitroglycerin (Nitrostat) 0.4 Mg Subl, 0.4 MG SL NITRO PRN for CHEST PAIN, (Repo rted) Allergies Coded Allergies: cephalexin (Verified Allergy, Severe, RASH, DYSPNEA, 11/05/19) gatifloxacin (Verified Allergy, Severe, RASH, DYSPNEA, 11/05/19) tramadol (Verified Allergy, Severe, RASH, DYSPNEA, 11/05/19) silver nitrate (Verified Allergy, Intermediate, HIVES, RASH, 11/05/19) chlorhexidine (Verified Allergy, Mild, RASH, 11/05/19) latex (Verified Allergy, Mild, RED, SWOLLEN, RASH, 11/05/19) nitrofurantoin (Verified Allergy, Mild, RASH, 11/05/19) sulfamethoxazole (Verified Adverse Reaction, Intermediate, EFFECTS KIDNEY FUNCTION, 11/05/19) trimethoprim (Verified Adverse Reaction, Intermediate, EFFECTS KIDNEY FUNCTION, 11/05/19) A-FIB/CHADSVASC A-FIB History Current/History of A-Fib/PAF?: Yes Current PO Anticoag Therapy: No Vital Signs Vital Signs Date Time Temp Pulse Resp B/P (MAP) Pulse Ox O2 Delivery O2 Flow Rate FiO2 11/26/20 22:32 77 16 94 NIPPV (BIPAP/CPAP) 11/26/20 22:30 91/52 (65) 11/26/20 19:47 2.0 11/26/20 19:45 35 11/26/20 18:30 96.8 Laboratory Data Labs 24H Laboratory Tests 2 11/26/20 17:59: Lactic Acid Level 0.7 11/26/20 18:00: Immature Granulocyte % (Auto) 1.7, Neutrophils (%) (Auto) 88.5H, Lymphocytes (%) (Auto) 4.4L, Monocytes (%) (Auto) 4.4, Eosinophils (%) (Auto) 0.5, Basophils (%) (Auto) 0.5, Neutrophils # (Auto) 21.1H, Lymphocytes # (Auto) 1.0L, Monocytes # (Auto) 1.1H, Eosinophils # (Auto) 0.1, Basophils # (Auto) 0.1, Nucleated Red Blood Cells % (auto) 1.0H, Anion Gap 6L, Glomerular Filtration Rate 23.4L, Calcium Level 9.1, Magnesium Level 1.8, Total Bilirubin 0.4, Direct Bilirubin 0.1, Aspartate Amino Transf (AST/SGOT) 26, Alanine Aminotransferase (ALT/SGPT) 21, Alkaline Phosphatase 120H, Total Creatine Kinase 32, Creatine Kinase MB 1.9, Creatine Kinase MB Relative Index 5.94H, Troponin I < 0.02, QV-Nhv-D-Type Natriuretic Peptide 2555H, Total Protein 6.5, Albumin 2.4L, Albumin/Globulin Ratio 0.6L, Thyroid Stimulating Hormone (TSH) 1.540 11/26/20 18:15: Blood Gas Bicarbonate Standard 24.4, Arterial Blood pH 7.252L, Arterial Blood Partial Pressure CO2 65.3*H, Arterial Blood Partial Pressure O2 68.0L, Arterial Blood Total CO2 30.1, Arterial Blood HCO3 28.1H, Arterial Blood Base Excess 0.0, Arterial Blood Oxygen Saturation 94.0L 11/26/20 21:26: Blood Gas Bicarbonate Standard 23.1, Arterial Blood pH 7.264L, Arterial Blood Partial Pressure CO2 58.5H, Arterial Blood Partial Pressure O2 117.3H, Arterial Blood Total CO2 27.7, Arterial Blood HCO3 25.9, Arterial Blood Base Excess -1.7, Arterial Blood Oxygen Saturation 98.5 11/26/20 21:48: Bedside Glucose (Misc Panel) 163H CBC/BMP Laboratory Tests 11/26/20 18:00 Microbiology Microbiology 11/26/20 Blood Culture, Received Pending 11/26/20 Respiratory Virus Panel (PCR) ([facility]) - Final, Complete Plan / VTE VTE Prophylaxis Ordered?: Yes GME ATTESTATION GME ATTESTATION My faculty preceptor for this patient encounter was physically present during the encounter and was fully available. All aspects of the patient interview, examination, medical decision making process, and medical care plan development were reviewed and approved by the faculty preceptor. The faculty preceptor is aware and concurs with the plan as stated in the body of this note and will attest to such by his/her cosignature. ATTENDING NOTE I, A Yousef, have independently examined this patient and performed my own physical exam, as well as reviewed the documentation and edited where necessary. I have discussed in detail with the resident / student the findings and plan of treatment as documented by the resident / student and edited their note. I agree with their findings and treatment plan and have edited their documentation. I will continue to follow the patient during this hospital stay. NAZIA MONDRAGON DO Nov 26, 2020 22:47 NELLA DAWKINS MD Nov 27, 2020 18:41
[2020-11-27] MEDS: VANCOMYCIN HCL 750 MG, VIAL MATE ADAPTER 1 EACH in NS 250 ML IV SCH ×2 (00:42→01:59)
[2020-11-27 01:55] LABS: HEMATOCRIT 32.4 % (36.0-47.0); HEMOGLOBIN 9.2 g/dl (12.0-15.5)
[2020-11-27] MEDS: IPRATROPIUM 0.5MG/ALBUTEROL 2.5MG INH SOL UD 3ML (DUONEB) NEB SCH ×4 (02:00→20:00)
[2020-11-27] MEDS: PIPERACILLIN/TAZOBACTAM SOD 2.25 GM in D5W MINI-BAG PLUS 50 ML IV SCH ×3 (04:00→22:40)
[2020-11-27 05:56] LABS: ABG BASE EXCESS -4.6 (-2.0-2.0); ABG HCO3 21.4 MEQ/L (22.0-26.0); ABG O2 SATURATION 98.8 % (95.0-99.0); ABG PARTIAL PRESSURE CO2 43.4 mmHg (35.0-45.0); ABG PARTIAL PRESSURE O2 116.2 mmHg (75.0-100.0); ABG STANDARD HCO3 20.6 MEQ/L (22.0-26.0); ABG TOTAL CO2 22.7 MEQ/L (23.0-31.0)
[2020-11-27] MEDS: HEPARIN SOD (PORCINE) 5000UNITS/ML 1ML VIAL/SYRINGE SC SCH ×3 (06:00→22:41)
[2020-11-27] MEDS: HumaLOG INSULIN (NovoLOG) PER UNIT SC SCH ×4 (07:30→21:00)
[2020-11-27] MEDS: SYMBICORT 160/4.5MCG INHALER 6GM INH SCH ×2 (08:05→20:11)
[2020-11-27 08:31] LABS: BASO # 0.1 10^3/uL (0.0-0.2); BASO % 0.4 % (0.0-1.0); EOS % 0.1 % (0.0-3.0); HEMATOCRIT 31.5 % (36.0-47.0); LYMPH # 0.7 10^3/uL (1.5-5.0); LYMPH % 4.3 % (24.0-44.0); MEAN CORPUSCULAR HEMOGLOBIN 29.2 pg (27.0-33.0); MEAN CORPUSCULAR HGB CONC 28.6 g/dl (32.0-36.5); MEAN CORPUSCULAR VOLUME 102.3 fl (80.0-96.0); MONO # 0.4 10^3/uL (0.0-0.8); MONO % 2.5 % (2.0-8.0); NEUTROPHILS # 15.2 10^3/uL (1.5-8.5); NEUTROPHILS % 91.4 % (36.0-66.0); PLATELET COUNT, AUTOMATED 261 10^3/uL (150-450); RED BLOOD COUNT 3.08 10^6/uL (4.00-5.40); WHITE BLOOD COUNT 16.6 10^3/uL (4.0-10.0)
[2020-11-27 08:44] VITALS: BP 120/57
[2020-11-27] MEDS: DOCUSATE SODIUM 100MG CAPSULE PO SCH ×2 (08:44→19:36)
[2020-11-27] MEDS: METOPROLOL TART 12.5 MG PER 1/2 TAB PO SCH (08:44)
[2020-11-27] MEDS: OMEPRAZOLE 20 MG CAP PO SCH (08:44)
[2020-11-27] MEDS: LEVOTHYROXINE 125MCG TABLET (0.125MG) PO SCH (08:48)
[2020-11-27] MEDS: ASPIRIN 81MG ENTERIC TABLET PO SCH (09:00)
[2020-11-27] MEDS: FERROUS SULFATE 325MG TAB PO SCH (09:00)
[2020-11-27] MEDS: CALCITRIOL 0.25 MCG CAP (S0169) PO SCH (09:00)
[2020-11-27] MEDS ORDERED: TORSEMIDE 20 MG TAB PO SCH (09:00)
[2020-11-27] MEDS: LACTOBACILLUS ACIDOPHILUS CAP (BACID) PO SCH ×2 (09:00→22:41)
--- NOTE | 2020-11-27 09:01 | REP ---
INDICATION: pneumonia. COMPARISON: 11/26/2020. TECHNIQUE: Single portable AP view of the chest was performed. FINDINGS: Subtle patchy opacities in the lung bases are stable. There is cardiomegaly. The mediastinal silhouette is unchanged. Multiple sternal wires are present. There is a right central venous catheter unchanged. IMPRESSION: Stable exam. <Electronically signed by Ronny Garza > 11/27/20 0857
[2020-11-27 09:06] LABS: ALBUMIN 2.4 GM/DL (3.2-5.2); BILIRUBIN,TOTAL 0.5 MG/DL (0.2-1.0); CALCIUM LEVEL 9.1 MG/DL (8.8-10.2); CREATININE FOR GFR 2.92 MG/DL (0.55-1.30); GLOMERULAR FILTRATION RATE 16.9 (>39); POTASSIUM SERUM 4.7 MEQ/L (3.5-5.1); TOTAL PROTEIN 5.7 GM/DL (6.4-8.2); VANCOMYCIN RANDOM 33.4 UG/ML
[2020-11-27 12:18] LABS: ABG BASE EXCESS -1.7 (-2.0-2.0); ABG HCO3 25.1 MEQ/L (22.0-26.0); ABG O2 SATURATION 99.3 % (95.0-99.0); ABG PARTIAL PRESSURE CO2 52.8 mmHg (35.0-45.0); ABG PARTIAL PRESSURE O2 150.2 mmHg (75.0-100.0); ABG STANDARD HCO3 23.1 MEQ/L (22.0-26.0); ABG TOTAL CO2 26.7 MEQ/L (23.0-31.0); ABG pH (ARTERIAL) 7.295 UNITS (7.350-7.450)
--- NOTE | 2020-11-27 12:44 | IPNPDOC ---
Subjective Date Seen The patient was seen on 11/27/20. Subjective Chief Complaint/HPI Patient seen at bedside in ED. Off BIPAP on nasal canula saturating well. Denied any SOB or cough. Tells me she uses oxygen mostly only at night. Sometimes uses is during HD and if she is sick then during the day. Objective Physical Examination General Exam: Positive: Alert, Cooperative, No Acute Distress Eye Exam: Positive: PERRLA, Conjunctiva & lids normal, EOMI; Negative: Sclera icteric Neck Exam: Positive: Supple; Negative: JVD, thyromegaly Chest Exam: Positive: Diminished, Other (bibasilar cracles, kyphoscoliosis) Heart Exam: Positive: Rate Normal, Regular Rhythm, Normal S1, Normal S2; Negative: Murmurs, Rubs Abdomen Exam: Positive: Normal bowel sounds, Soft; Negative: Tenderness Extremity Exam: Negative: Clubbing, Cyanosis, Edema Assessment /Plan Assessment Mrs. Duran is a 70 year old female resident of [facility] with past medical history of ESRD on hemodialysis, CAD status post CABG in 07/27/2020, chronic diastolic CHF, obesity, DIXON, chronic respiratory failure, reports uses oxygen mostly at night, pulmonary hypertension, diabetes, asthma, GERD, hypothyroidism, peripheral vascular disease, who presented to the emergency room from hemodialysis with shortness of breath, runny nose, and cough of two days duration after being found to have an oxygen saturation in the mid 70's during hemodialysis. She was picked up by EMS and placed on 4L of O2 which increased her O2 saturations into the 90's. Mrs. Duran was recently hospitalized at [facility] on 11/17/20, 10/20/20, and 10/11/20 for shortness of breath, CHF exacerbation, and acute on chronic respiratory failure respectfully. Work-up in the ED showed bilateral pneumonia with acute on chronic respiratory failure with hypoxia and hypercarbia. Patient was placed on BiPAP support and admitted. Bilateral pneumonia Likely healthcare associated pneumonia patient has multiple hospitalizations in the recent past 1 out of 2 blood cultures positive showing gram-positive cocci in clusters. We will continue with Zosyn Check MRSA PCR. Received 1 dose of Vanco Acute on chronic respiratory failure with hypoxia and hypercarbia Was initially on BiPAP Now improved We will continue oxygenation with nasal cannula Obesity/DIXON Continuous pulse oximetry ESRD Nephrology has been consulted for maintenance hemodialysis Questionable GI bleed The nurse noticed patient's stool appeared black and tarry Hemoglobin is stable at 9. Continue on ferrous sulfate Will hold Plavix. Continue aspirin Chronic HFpEF Fluid status to be managed by dialysis continue torsemide Insulin Dependent Diabetes Mellitus Continue on Levemir and lispro GERD continue omeprazole CAD s/p CABG Continue Plavix, statin, We will hold Plavix as there is some question about black tarry stools and possible GI bleed Hold metoprolol as her blood pressure low normal Asthma Continue same Hyperlipidemia Continue statin Peripheral vascular disease Continue aspirin We will hold Plavix for concern about possible GI bleed Hypothyroid Continue Synthroid Plan/VTE VTE Prophylaxis Ordered?: Yes VS, I&O, 24H, Fishbone Vital Signs/I&O Vital Signs Date Time Temp Pulse Resp B/P (MAP) Pulse Ox O2 Delivery O2 Flow Rate FiO2 11/27/20 11:32 79 100 Nasal Cannula 3.0 11/27/20 11:30 111/53 (72) 11/27/20 08:07 30 11/27/20 07:18 97.4 11/27/20 06:17 16 I&O- Last 24 Hours up to 6 AM 11/27/20 05:59 Intake Total 650 ml Balance 650 ml Laboratory Data 24H LABS Laboratory Tests 2 11/26/20 17:59: Lactic Acid Level 0.7 11/26/20 18:00: Immature Granulocyte % (Auto) 1.7, Neutrophils (%) (Auto) 88.5H, Lymphocytes (%) (Auto) 4.4L, Monocytes (%) (Auto) 4.4, Eosinophils (%) (Auto) 0.5, Basophils (%) (Auto) 0.5, Neutrophils # (Auto) 21.1H, Lymphocytes # (Auto) 1.0L, Monocytes # (Auto) 1.1H, Eosinophils # (Auto) 0.1, Basophils # (Auto) 0.1, Nucleated Red Blood Cells % (auto) 1.0H, Anion Gap 6L, Glomerular Filtration Rate 23.4L, Calcium Level 9.1, Magnesium Level 1.8, Total Bilirubin 0.4, Direct Bilirubin 0.1, Aspartate Amino Transf (AST/SGOT) 26, Alanine Aminotransferase (ALT/SGPT) 21, Alkaline Phosphatase 120H, Total Creatine Kinase 32, Creatine Kinase MB 1.9, Creatine Kinase MB Relative Index 5.94H, Troponin I < 0.02, MA-Lba-R-Type Natriuretic Peptide 2555H, Total Protein 6.5, Albumin 2.4L, Albumin/Globulin Ratio 0.6L, Procalcitonin 1.03, Thyroid Stimulating Hormone (TSH) 1.540 11/26/20 18:15: Blood Gas Bicarbonate Standard 24.4, Arterial Blood pH 7.252L, Arterial Blood Partial Pressure CO2 65.3*H, Arterial Blood Partial Pressure O2 68.0L, Arterial Blood Total CO2 30.1, Arterial Blood HCO3 28.1H, Arterial Blood Base Excess 0.0, Arterial Blood Oxygen Saturation 94.0L 11/26/20 21:26: Blood Gas Bicarbonate Standard 23.1, Arterial Blood pH 7.264L, Arterial Blood Partial Pressure CO2 58.5H, Arterial Blood Partial Pressure O2 117.3H, Arterial Blood Total CO2 27.7, Arterial Blood HCO3 25.9, Arterial Blood Base Excess -1.7, Arterial Blood Oxygen Saturation 98.5 11/26/20 21:48: Bedside Glucose (Misc Panel) 163H 11/27/20 05:50: Blood Gas Bicarbonate Standard 20.6L, Arterial Blood pH 7.310L, Arterial Blood Partial Pressure CO2 43.4, Arterial Blood Partial Pressure O2 116.2H, Arterial Blood Total CO2 22.7L, Arterial Blood HCO3 21.4L, Arterial Blood Base Excess - 4.6L, Arterial Blood Oxygen Saturation 98.8 11/27/20 07:01: Immature Granulocyte % (Auto) 1.3, Neutrophils (%) (Auto) 91.4H, Lymphocytes (%) (Auto) 4.3L, Monocytes (%) (Auto) 2.5, Eosinophils (%) (Auto) 0.1, Basophils (%) (Auto) 0.4, Neutrophils # (Auto) 15.2H, Lymphocytes # (Auto) 0.7L, Monocytes # (Auto) 0.4, Eosinophils # (Auto) 0.0, Basophils # (Auto) 0.1, Nucleated Red Blood Cells % (auto) 1.1H, Anion Gap 13, Glomerular Filtration Rate 16.9L, Calcium Level 9.1, Total Bilirubin 0.5, Aspartate Amino Transf (AST/SGOT) 27, Alanine Aminotransferase (ALT/SGPT) 23, Alkaline Phosphatase 111, Total Protein 5.7L, Albumin 2.4L, Albumin/Globulin Ratio 0.7L, Random Vancomycin Level 33.4 11/27/20 08:27: Bedside Glucose (Misc Panel) 125H CBC/BMP Laboratory Tests 11/26/20 18:00 11/27/20 01:43 11/27/20 07:01 Microbiology Microbiology 11/27/20 Blood Culture, Received Pending 11/26/20 Blood Culture - Preliminary, Resulted 11/26/20 Respiratory Virus Panel (PCR) ([facility]) - Final, Complete Jacquie Marshall MD Nov 27, 2020 12:44
[2020-11-27] MEDS ORDERED: **VANCO AFTER HD** MISC XX SCH (16:00)
[2020-11-27] MEDS ORDERED: IPRATROPIUM 0.5MG/ALBUTEROL 2.5MG INH SOL UD 3ML (DUONEB) NEB SCH (16:00)
[2020-11-27 18:26] VITALS: O2SAT 91
--- NOTE | 2020-11-27 18:57 | ECGEPIP ---
[facility] - ED Test Date: 2020-11-26 Pat Name: MARYBETH HERNADEZ Department: Room: - Gender: Female [employer]isher [employer]: JYoli : 1950 Requested By: KOKI Kay Order Number: [id number] Reading MD: Lynn Womack Measurements Intervals [place] Rate: 88 P: 53 AL: 146 QRS: 8 QRSD: 130 T: 175 QT: 378 QTc: 457 Interpretive Statements Normal sinus rhythm Left bundle branch block increased rate 11/17/20 Electronically Signed on 11-27-2020 18:57:02 EDT by Lynn Womack
--- NOTE | 2020-11-27 20:07 | CR ---
CONSULTATION DATE: 11/27/2020 REQUESTING PHYSICIAN: Krystin Mejia DO REASON FOR CONSULTATION: End-stage renal disease on hemodialysis management. HISTORY OF PRESENT ILLNESS: Barbie Duran is well known to me. She is a 70-year-old female with a past medical history of end-stage renal disease on hemodialysis on a Tuesday, Tuesday, Tuesday schedule. She has recently had multiple hospitalizations. She had a CABG done in July,. She also has a history of diastolic congestive heart failure, obesity, pulmonary hypertension and multiple other conditions listed below. She reports that she was having progressive shortness of breath for several days. During her hemodialysis treatment yesterday, she was found to have low oxygen saturation. One liter of fluid was removed with yesterday's outpatient hemodialysis treatment. EMS was called and O2 saturations were in the mid-70s and she was started on supplemental oxygen and brought to the emergency room for further evaluation and was diagnosed with community acquired pneumonia and hypoxic and hypercapnic respiratory failure. She was started on broad spectrum antibiotics. One set of blood cultures returned position. She was also treated with BiPAP in the emergency room. She reports symptomatic improvement. Nephrology evaluation was requested for help with arrangement for hemodialysis during this hospitalization. PAST MEDICAL HISTORY: 1. End-stage renal disease on hemodialysis. 2. Anemia of chronic renal failure. 3. Secondary hyperparathyroidism of renal origin. 4. Obesity. 5. Coronary artery disease, status post CABG in July of 2020. 6. Diastolic congestive heart failure. 7. Pulmonary hypertension. 8. Insulin dependent diabetes mellitus. 9. Asthma. 10. GERD. 11. Hypothyroidism. 12. Diverticulosis. 13. History of GI bleed. 14. Obstructive sleep apnea. 15. Peripheral vascular disease. PAST SURGICAL HISTORY: 1. Appendectomy. 2. Cataract surgery. 3. Carpal tunnel surgery. 4. Tonsillectomy. 5. . 6. Left ankle fracture repair. 7. History of fistulas (arteriovenous for dialysis). 8. Permacath. 9. History of wound VAC placements. 10. CABG. 11. Pseudoaneurysm repair, July,. SOCIAL HISTORY: No alcohol, tobacco or drugs reported. The patient is a resident of the [facility]. FAMILY HISTORY: She denies a family history of renal failure. ALLERGIES: CEPHALEXIN, CHLORHEXIDINE, GATIFLOXACIN, LATEX, NITROFURANTION, SILVER NITRATE, SULFAMETHOXAZOLE, TRAMADOL, TRIMETHOPRIM. HOME MEDICATIONS: 1. Aspirin 81 mg daily. 2. Atorvastatin 40 mg p.o. q.h.s. 3. Symbicort two puffs inhaled b.i.d. 4. Calcitriol given through dialysis unit. 5. Cholecalciferol 1000 units p.o. daily. 6. Plavix 75 mg p.o. daily. 7. Ferrous sulfate 325 mg p.o. daily. 8. Insulin. 9. Levothyroxine 125 mcg p.o. daily. 10. Metoprolol 12.5 mg p.o. three times a day. 11. Torsemide 20 mg p.o. four days a week and 40 mg p.o. three days a week. 12. Omeprazole 20 mg p.o. daily. REVIEW OF SYSTEMS: Constitutional: Denies fevers or chills but does feel fatigued. Eyes: Denies visual changes or tearing. ENT: Reports rhinorrhea, denies epistaxis. Cardiac: Reports CABG. Denies chest pain or leg swelling. Respiratory: Reports pulmonary hypertension. Reports progressive shortness of breath. Reports sleep apnea. GI: Denies nausea, vomiting or diarrhea. Patient reports history of GI bleed. Endocrine: Reports obesity, diabetes and hypothyroidism. Musculoskeletal: Reports generalized weakness, limitations of mobility. Skin: Reports recent wound and pressure ulcers. Neurologic: Denies seizure or syncope. Psychiatric: Reports depression. Remainder of review of systems is negative or as per HPI. PHYSICAL EXAMINATION: Vital signs: Temperature 98.7, pulse 90, respiratory rate 18, blood pressure 91/53, saturating 100% on one liter nasal canula. Weight in bed scale today is 75 kg. General: Patient was seen in the emergency room lying in a stretcher morbidly obese, elderly female awake, alert and oriented x3 and is in no acute distress. She was comfortable on nasal cannula. At the time of my visit, she was able to speak in full sentences without any conversational dyspnea. HEENT: Extraocular muscles are intact. Tongue is moist. Neck: Supple. Jugular veins were not elevated. There is a tunneled hemodialysis catheter present in the right chest wall with a clean dressing. Heart sounds are regular and distant secondary to body habitus. There is a healed midline incision. Lungs: Show symmetric air movement. She is comfortable on nasal cannula. There is no accessory muscle use. There is no tachypnea. There is occasional rhonchus. There is no cough with deep inspiration. Abdomen: Soft and obese. There is some bruising. Extremities : There is no edema in the legs. She has old failed fistula present in the arm. Neurologic: She is oriented x3, cooperative with physical exam and appears to be at baseline mentation. LABORATORY DATA: White count 16.6, hemoglobin 9.0, platelets 261. Sodium 137, potassium 4.7, bicarbonate 23, BUN 15, creatinine 2.9. Lactic acid 0.7, magnesium 1.8, albumin 2.4, BNP 2500. Blood gas most recently at noon today: pH 7.29, pCO2 52, pO2 150. Hemoglobin 9.0, platelets 261. Blood cultures: One set drawn yesterday grew gram positive cocci in clusters. IMAGING: CT of the chest done yesterday without contrast showed several segments of consolidated lung in the right lower lobe, consistent with atelectasis and pneumonia of the right lower lobe. There is also discoid atelectasis and infiltrate at the left mid-lung field. Chest x-ray done this morning showed subtle patchy opacities in the lung bases. INPATIENT MEDICATIONS: 1. Zosyn 2.25 gm IV q.8 hourly. 2. Vancomycin 750 mg. Two doses have been given. 3. Albuterol p.r.n. 4. Mylanta p.r.n. 5. Aspirin 81 mg daily. 6. Atorvastatin 40 mg p.o. q.h.s. 7. Symbicort two puffs inhaled b.i.d. 8. Calcitriol 0.25 mcg p.o. daily. 9. Decadron 5 mg IV x1. 10. Docusate 100 mg p.o. b.i.d. 11. Ferrous sulfate 325 mg p.o. daily. 12. Guaifenesin 10 mL p.o. q.4 hourly p.r.n. 13. Heparin 5000 units subcu q.8 hourly. 14. Insulin. 15. Bacid one each p.o. b.i.d. 16. Levothyroxine 125 mcg p.o. daily. 17. Midodrine 10 mg p.o. three times a day. 18. Omeprazole 20 mg p.o. daily. 19. Torsemide 40 mg on Tuesday, Tuesday, , Tuesday and 20 mg the remainder days of the week. PROBLEMS: 1. End-stage renal disease on hemodialysis on a Tuesday, Tuesday, Tuesday schedule. Patient was dialyzed yesterday as an outpatient. One liter of fluid was removed. As well, her electrolytes and volume status are acceptable at this time. Next dialysis will be on Tuesday as per her usual schedule and she is presently dialyzed in by a Permacath. 2. Community acquired pneumonia. Chest CT noted. Patient is on vancomycin and Zosyn by the primary team. She had a white count elevation of 23 on admission but this is downtrending now. She is afebrile but blood pressures have been soft. We will plan for a gentle hemodialysis treatment tomorrow. 3. Bacteremia. One out of two sets of blood cultures was positive. Patient is on broad-spectrum antibiotics and sensitivities and speciation is pending. She has had multiple hospitalization since she had a CABG in July and she also reports ulcers and wound. She has also been dialyzed via a Permacath. Antibiotics are as per primary service. 4. Diastolic congestive heart failure. Volume status seems reasonable compensated. Only one liter was removed with her last dialysis treatment which was on Tuesday as an outpatient. We will plan for another dialysis tomorrow, Tuesday, November 28. Blood pressure is soft and patient is acutely ill with ongoing infectious issues. I will most likely plan for a gentle dialysis treatment. 5. Frxxj-zx-ccegres hypoxic and hypercapnic respiratory failure. Patient was initially managed with BiPAP and is now doing well on nasal cannula (only one liter nasal cannula at this time). Blood gases have been done serially and show ongoing hypercapnia and respiratory acidosis. 6. Hypotension. In the setting of pneumonia and bacteremia, the patient is on midodrine and metoprolol has been held. I am also going to stop the diuretic as I do not see any reason to keep her on Torsemide. 7. Anemia. Hemoglobin is 9.0 on the latest lab. We will hold off on IV iron given that she had recent satisfactory transferrin saturation (23% on November 18) and also in view of infectious issues. She will continue with Aranesp on hemodialysis for goal hemoglobin 10-11.
[2020-11-27 21:20] LABS: ABG BASE EXCESS -1.6 (-2.0-2.0); ABG HCO3 25.3 MEQ/L (22.0-26.0); ABG PARTIAL PRESSURE CO2 54.3 mmHg (35.0-45.0); ABG PARTIAL PRESSURE O2 93.6 mmHg (75.0-100.0); ABG STANDARD HCO3 23.1 MEQ/L (22.0-26.0); ABG pH (ARTERIAL) 7.287 UNITS (7.350-7.450)
[2020-11-27 22:00] VITALS: BP 119/88
[2020-11-27] MEDS: LEVEMIR (INSULIN DETEMIR) 1 UNITS/0.01ML SC SCH (22:40)
[2020-11-27] MEDS: ATORVASTATIN 20 MG TAB PO SCH (22:41)
[2020-11-28] MEDS: SODIUM CHLORIDE 0.9% INJ 10 ML SYR IV PRN ×3 (00:01→22:27)
[2020-11-28] MEDS: IPRATROPIUM 0.5MG/ALBUTEROL 2.5MG INH SOL UD 3ML (DUONEB) NEB SCH ×4 (00:47→19:42)
[2020-11-28 01:08] LABS: ABG BASE EXCESS -0.3 (-2.0-2.0); ABG PARTIAL PRESSURE CO2 59.1 mmHg (35.0-45.0); ABG PARTIAL PRESSURE O2 62.4 mmHg (75.0-100.0); ABG STANDARD HCO3 24.2 MEQ/L (22.0-26.0); ABG TOTAL CO2 28.8 MEQ/L (23.0-31.0); ABG pH (ARTERIAL) 7.277 UNITS (7.350-7.450)
[2020-11-28] MEDS: PIPERACILLIN/TAZOBACTAM SOD 2.25 GM in D5W MINI-BAG PLUS 50 ML IV SCH ×3 (05:01→21:34)
[2020-11-28] MEDS: HEPARIN SOD (PORCINE) 5000UNITS/ML 1ML VIAL/SYRINGE SC SCH ×3 (05:05→21:33)
[2020-11-28] MEDS: SODIUM CHLORIDE 0.9% INJ 10 ML SYR IV SCH ×2 (05:05→17:57)
[2020-11-28 06:00] VITALS: BP 91/62
[2020-11-28] MEDS: MIDODRINE 5 MG TAB PO PRN (06:21)
[2020-11-28] MEDS: HumaLOG INSULIN (NovoLOG) PER UNIT SC SCH ×4 (07:30→20:51)
[2020-11-28] MEDS: SYMBICORT 160/4.5MCG INHALER 6GM INH SCH ×2 (07:41→19:43)
[2020-11-28] MEDS ORDERED: SODIUM CHLORIDE 0.9% 1000ML IV PRN (07:50)
[2020-11-28] MEDS: CALCITRIOL 0.25 MCG CAP (S0169) PO SCH (08:41)
[2020-11-28] MEDS: LEVOTHYROXINE 125MCG TABLET (0.125MG) PO SCH (08:41)
[2020-11-28] MEDS: FERROUS SULFATE 325MG TAB PO SCH (08:41)
[2020-11-28] MEDS: ASPIRIN 81MG ENTERIC TABLET PO SCH (08:41)
[2020-11-28] MEDS: DOCUSATE SODIUM 100MG CAPSULE PO SCH ×2 (08:41→21:33)
[2020-11-28] MEDS: OMEPRAZOLE 20 MG CAP PO SCH (08:41)
[2020-11-28] MEDS: LACTOBACILLUS ACIDOPHILUS CAP (BACID) PO SCH ×2 (08:41→21:33)
[2020-11-28] MEDS ORDERED: CLOPIDOGREL 75 MG TAB PO SCH (09:00)
[2020-11-28 09:36] LABS: VENOUS BASE EXCESS -1.3 (-2.0-2.0); VENOUS HCO3 26.1 MEQ/L (23.0-27.0); VENOUS O2 SATURATION 96.6 % (60.0-80.0); VENOUS PARTIAL PRESSURE CO2 58.9 mmHg (38.0-50.0); VENOUS PARTIAL PRESSURE O2 94.9 mmHg (30.0-50.0); VENOUS PH 7.265 UNITS (7.330-7.430); VENOUS STANDARD HCO3 23.3 MEQ/L; VENOUS TOTAL CO2 27.9 MEQ/L (24.0-28.0)
[2020-11-28 09:41] LABS: BASO # 0.1 10^3/uL (0.0-0.2); BASO % 0.3 % (0.0-1.0); EOS # 0.1 10^3/uL (0.0-0.5); EOS % 0.4 % (0.0-3.0); HEMATOCRIT 28.1 % (36.0-47.0); HEMOGLOBIN 8.2 g/dl (12.0-15.5); LYMPH # 0.9 10^3/uL (1.5-5.0); LYMPH % 5.1 % (24.0-44.0); MEAN CORPUSCULAR HEMOGLOBIN 28.1 pg (27.0-33.0); MEAN CORPUSCULAR HGB CONC 29.2 g/dl (32.0-36.5); MEAN CORPUSCULAR VOLUME 96.2 fl (80.0-96.0); MONO # 1.1 10^3/uL (0.0-0.8); MONO % 6.2 % (2.0-8.0); NEUTROPHILS # 15.7 10^3/uL (1.5-8.5); NEUTROPHILS % 87.2 % (36.0-66.0); PLATELET COUNT, AUTOMATED 247 10^3/uL (150-450); RED BLOOD COUNT 2.92 10^6/uL (4.00-5.40)
[2020-11-28] MEDS ORDERED: DARBEPOETIN 100 MCG/0.5 ML *DIALYSIS* SYRINGE (J0882) IV SCH (09:50)
[2020-11-28 10:16] LABS: ALBUMIN 2.3 GM/DL (3.2-5.2); BILIRUBIN,TOTAL 0.5 MG/DL (0.2-1.0); CREATININE FOR GFR 4.49 MG/DL (0.55-1.30); GLOMERULAR FILTRATION RATE 10.3 (>39); POTASSIUM SERUM 3.7 MEQ/L (3.5-5.1); TOTAL PROTEIN 6.2 GM/DL (6.4-8.2)
[2020-11-28 11:58] LABS: PERCENT SATURATION 37.3 % (13.2-45.0)
[2020-11-28 14:00] VITALS: BP 94/61
--- NOTE | 2020-11-28 16:22 | REP ---
PROCEDURE NAME: PICC LINE INSERTION W/SITERITE CLINICAL INFORMATION: Poor IV access. COMPARISON: None. PROCEDURE DESCRIPTION: The procedure was performed by FARIBA Florence, under the direct supervision of Dr. Garza. The risks and benefits of the procedure were explained to the patient and an informed consent was obtained both verbally and written. Directly prior to the start of the procedure a formal time-out was completed in the procedure room. The right basilic vein was localized using ultrasound guidance. The skin was prepped and draped in sterile fashion. Six mL of 1% lidocaine 10 mg/mL was used as a local anesthetic. Using ultrasound guidance the right basilic vein was cannulated, and a 0.018 guidewire was inserted and advanced to the level of SVC using fluoroscopic guidance. The needle was removed and a 6 Ecuadorean dilator and peel-away sheath was inserted over the guidewire. A 6 Ecuadorean double lumen catheter was cut to a length of 34 cm. The dilator was removed and the catheter was inserted over the guidewire with the tip ending at the level of the SVC. The peel-away sheath was removed and the catheter was flushed with heparinized saline as per hospital protocol. The catheter was affixed to the skin and a sterile dressing was applied. The patient tolerated the procedure well and there were no immediate complications. CONCLUSION: PICC line insertion into the right basilic vein. 2.9 minutes of fluoroscopy time was utilized for this procedure. Some fluoroscopic images are performed with last image hold technology. These images require no additional radiation. <Electronically signed by Betsy Mchugh > 11/28/20 1108 <Electronically signed by Ronny Garza > 11/28/20 [id number]
--- NOTE | 2020-11-28 17:01 | IPN ---
PROGRESS NOTE DATE: 11/28/2020 SUBJECTIVE: Barbie was seen and examined this morning in the hemodialysis unit receiving a treatment. She reports her breathing feels better. She offers no complaints. Dialysis is uneventful today. She is tolerating fluid removal. OBJECTIVE: VITAL SIGNS: Temperature 97.8, pulse 80, respiratory rate 20, blood pressure 91/62, saturating 98% on 2 liter nasal cannula. INTAKE/OUPUT: Intake yesterday was 710. Dialysis today removed 1.5 liters. There was incontinent void and two incontinent bowel movements recorded. GENERAL: She was seen awake, alert, oriented, receiving dialysis, in no acute distress. HEENT: Extraocular muscles are intact. Tongue is moist. Neck is supple. Jugular veins are difficult to assess, but do not look elevated. HEART: Heart sounds are regular, S1, S2. There is healed midline incision. There is a tunnel dialysis in the right chest wall, which is presently in use. LUNGS: Sounds are distant secondary to body habitus. She is comfortable on nasal cannula. There is no accessory muscle use. There is no tachypnea. ABDOMEN: Soft and obese. There is some bruising. EXTREMITIES: There is an old failed fistula in the right arm. There is trace leg edema. NEUROLOGIC: She is oriented x3, cooperative with physical exam, and at baseline mentation. LABORATORY DATA: White count 18.0, hemoglobin 8.2, platelets 247,000. Sodium 136, potassium 3.7, bicarbonate 30, BUN 26, creatinine 4.4, glucose 193. Ferritin 1,600, transferrin saturation 37%, iron 47, albumin 2.3. IMAGING: Chest x-ray done yesterday shows subtle patchy opacities in the lung bases and cardiomegaly. PROBLEMS: 1. End-stage renal disease on hemodialysis on a Tuesday, Tuesday, Tuesday schedule: Patient was dialyzed today with 1.5 liters of fluid removed. Her electrolytes and volume status are acceptable. Next dialysis will be on Tuesday per her usual schedule. 2. Community-acquired pneumonia: She continues on Vancomycin and Zosyn by the primary team. Her white count has come down to 18. She is afebrile. Blood pressures have been soft, but she tolerated 1.5 liter fluid removal with dialysis today without any issue. 3. Diastolic congestive heart failure: Volume status is reasonably compensated, 1.5 liters was removed today. Next dialysis will be on Tuesday. 4. Anemia of chronic renal failure and chronic inflammatory state: Ferritin level is markedly elevated, transferrin saturation was acceptable at 37%. She continues on Aranesp with dialysis, goal hemoglobin 10-11. 5. Questionable GI blood loss: I note primary team has held the Plavix. She is on oral iron supplemental. Continue with CBC monitoring. I would transfuse for hemoglobin less than 8. She is on GI prophylaxis with Prilosec. 6. Pneumonia (healthcare associated) and with one out of two blood cultures showing gram positive cocci in clusters: Antibiotics are managed as per the primary service. Patient is hemodynamically stable and afebrile. White count is still elevated, but better than it was on admission. 7. Status post acute on chronic renal failure with hypoxia and hypercarbia: She is now saturating well on nasal cannula. MTDD
[2020-11-28 19:58] VITALS: BP 93/49
--- NOTE | 2020-11-28 20:04 | IPNPDOC ---
Subjective Date Seen The patient was seen on 11/28/20. Subjective Chief Complaint/HPI Patient reports that her breathing is better. She had her dialysis treatment today with 1-1/2 L fluid restriction removal. She also had PICC line placement. She has been on nasal cannula oxygenation all day. Last night she had an episode of shortness of breath when an ABG was done which did show mild retention of CO2 with slightly lower pH than the day before. 7.27/59/62. Patient was placed on BiPAP which seemed to help with her breathing. Will check ABG again tomorrow morning. We will continue her on BiPAP during sleep. No further episodes of black tarry stool noted. Objective Physical Examination General Exam: Positive: Alert, Cooperative, No Acute Distress Eye Exam: Positive: PERRLA, Conjunctiva & lids normal, EOMI; Negative: Sclera icteric Neck Exam: Positive: Supple; Negative: JVD, thyromegaly Chest Exam: Positive: Diminished, Other (bibasilar cracles, kyphoscoliosis) Heart Exam: Positive: Rate Normal, Regular Rhythm, Normal S1, Normal S2; Negative: Murmurs, Rubs Abdomen Exam: Positive: Normal bowel sounds, Soft; Negative: Tenderness Extremity Exam: Negative: Clubbing, Cyanosis, Edema Assessment /Plan Assessment Mrs. Duran is a 70 year old female resident of [facility] with past medical history of ESRD on hemodialysis, CAD status post CABG in 07/27/2020, chronic diastolic CHF, obesity, DIXON, chronic respiratory failure, reports uses oxygen mostly at night, pulmonary hypertension, diabetes, asthma, GERD, hypothyroidism, peripheral vascular disease, who presented to the emergency room from hemodialysis with shortness of breath, runny nose, and cough of two days duration after being found to have an oxygen saturation in the mid 70's during hemodialysis. She was picked up by EMS and placed on 4L of O2 which increased her O2 saturations into the 90's. Mrs. Duran was recently hospitalized at [facility] on 11/17/20, 10/20/20, and 10/11/20 for shortness of breath, CHF exacerbation, and acute on chronic respiratory failure respectfully. Work-up in the ED showed bilateral pneumonia with acute on chronic respiratory failure with hypoxia and hypercarbia. Patient was placed on BiPAP support and admitted. Bilateral pneumonia Likely healthcare associated pneumonia patient has multiple hospitalizations in the recent past 1 out of 2 blood cultures positive showing gram-positive cocci in clusters. We will continue with Zosyn MRSA PCR negative so Vanco was discontinued Acute on chronic respiratory failure with hypoxia and hypercarbia Continues to have CO2 retention though a little better than before We will continue with BiPAP tabletop at night We will continue oxygenation with nasal cannula during the day Check ABG in the a.m. Obesity/DIXON/possible obesity hypoventilation Continuous pulse oximetry BIPAP at night ESRD Nephrology has been consulted for maintenance hemodialysis Questionable GI bleed The nurse noticed patient's stool appeared black and tarry Hemoglobin is stable at 9. Continue on ferrous sulfate Will hold Plavix. Continue aspirin Chronic HFpEF Fluid status to be managed by dialysis continue torsemide Insulin Dependent Diabetes Mellitus Continue on Levemir and lispro GERD continue omeprazole CAD s/p CABG Continue Plavix, statin, We will hold Plavix as there is some question about black tarry stools and possible GI bleed Hold metoprolol as her blood pressure low normal Asthma Continue same Hyperlipidemia Continue statin Peripheral vascular disease Continue aspirin We will hold Plavix for concern about possible GI bleed Hypothyroid Continue Synthroid Plan/VTE VTE Prophylaxis Ordered?: Yes VS[facility] Sign[facility]/I&O Vital Signs Date Time Temp Pulse Resp B/P (MAP) Pulse Ox O2 Delivery O2 Flow Rate FiO2 11/28/20 14:00 98.1 79 20 94/61 (72) 95 11/28/20 09:00 1.0 11/28/20 06:00 NIPPV (BIPAP/CPAP) 11/27/20 08:07 30 I&O- Last 24 Hours up to 6 AM 11/28/20 06:00 Intake Total 110 ml Output Total 0 ml Balance 110 ml Laboratory Data 24H LABS Laboratory Tests 2 11/27/20 20:55: Bedside Glucose (Misc Panel) 120H 11/27/20 21:08: Blood Gas Bicarbonate Standard 23.1, Arterial Blood pH 7.287L, Arterial Blood Partial Pressure CO2 54.3H, Arterial Blood Partial Pressure O2 93.6, Arterial Blood Total CO2 27.0, Arterial Blood HCO3 25.3, Arterial Blood Base Excess -1.6, Arterial Blood Oxygen Saturation 97.0 11/28/20 01:00: Blood Gas Bicarbonate Standard 24.2, Arterial Blood pH 7.277L, Arterial Blood Partial Pressure CO2 59.1H, Arterial Blood Partial Pressure O2 62.4L, Arterial Blood Total CO2 28.8, Arterial Blood HCO3 27.0H, Arterial Blood Base Excess -0 .3, Arterial Blood Oxygen Saturation 91.0L 11/28/20 05:00: Methicillin-Resist S.aureus DNA PCR NOT DETECTED 11/28/20 06:00: Immature Granulocyte % (Auto) 0.8, Neutrophils (%) (Auto) 87.2H, Lymphocytes (%) (Auto) 5.1L, Monocytes (%) (Auto) 6.2, Eosinophils (%) (Auto) 0.4, Basophils (%) (Auto) 0.3, Neutrophils # (Auto) 15.7H, Lymphocytes # (Auto) 0.9L, Monocytes # (Auto) 1.1H, Eosinophils # (Auto) 0.1, Basophils # (Auto) 0.1, Nucleated Red Blood Cells % (auto) 0.8H, Anion Gap 5L, Glomerular Filtration Rate 10.3L, Calcium Level 9.0, Iron Level 47L, Total Iron Binding Capacity 126L, Transferrin % Saturation 37.3, Ferritin 1656H, Total Bilirubin 0.5, Aspartate Amino Transf (AST/SGOT) 28, Alanine Aminotransferase (ALT/SGPT) 23, Alkaline Phosphatase 95, Total Protein 6.2L, Albumin 2.3L, Albumin/Globulin Ratio 0.6L 11/28/20 08:28: Bedside Glucose (Misc Panel) 105 11/28/20 09:30: Blood Gas Bicarbonate Standard 23.3, Venous Blood pH 7.265L, Venous Blood Partial Pressure CO2 58.9H, Venous Blood Partial Pressure O2 94.9H, Venous Blood Total Carbon Dioxide 27.9, Venous Blood HCO3 26.1, Venous Blood Oxygen Satu ration 96.6H, Venous Blood Base Excess -1.3 11/28/20 13:34: Bedside Glucose (Misc Panel) 75L 11/28/20 16:45: Bedside Glucose (Misc Panel) 116H CBC/BMP Laboratory Tests 11/28/20 06:00 Microbiology Microbiology 11/27/20 Stool Occult Blood ([facility]) - Final, Complete 11/27/20 Blood Culture - Preliminary, Resulted No growth after 24 hours . All specim... 11/26/20 Blood Culture - Preliminary, Resulted 11/26/20 Respiratory Virus Panel (PCR) ([facility]) - Final, Complete Jacquie Marshall MD Nov 28, 2020 20:04
[2020-11-28] MEDS: ATORVASTATIN 20 MG TAB PO SCH (21:33)
[2020-11-28] MEDS: LEVEMIR (INSULIN DETEMIR) 1 UNITS/0.01ML SC SCH (21:35)
[2020-11-29] MEDS: IPRATROPIUM 0.5MG/ALBUTEROL 2.5MG INH SOL UD 3ML (DUONEB) NEB SCH ×4 (02:46→23:20)
[2020-11-29] MEDS: PIPERACILLIN/TAZOBACTAM SOD 2.25 GM in D5W MINI-BAG PLUS 50 ML IV SCH ×3 (04:31→20:20)
[2020-11-29 05:56] LABS: ABG BASE EXCESS -1.1 (-2.0-2.0); ABG HCO3 24.5 MEQ/L (22.0-26.0); ABG O2 SATURATION 99.1 % (95.0-99.0); ABG PARTIAL PRESSURE O2 134.9 mmHg (75.0-100.0); ABG STANDARD HCO3 23.6 MEQ/L (22.0-26.0); ABG TOTAL CO2 25.9 MEQ/L (23.0-31.0); ABG pH (ARTERIAL) 7.354 UNITS (7.350-7.450)
[2020-11-29 06:00] VITALS: BP 100/47
[2020-11-29] MEDS: HEPARIN SOD (PORCINE) 5000UNITS/ML 1ML VIAL/SYRINGE SC SCH ×3 (06:19→21:39)
[2020-11-29] MEDS: SODIUM CHLORIDE 0.9% INJ 10 ML SYR IV SCH ×2 (06:20→14:41)
[2020-11-29 06:31] LABS: BASO % 0.3 % (0.0-1.0); EOS # 0.1 10^3/uL (0.0-0.5); EOS % 1.1 % (0.0-3.0); HEMATOCRIT 27.7 % (36.0-47.0); HEMOGLOBIN 8.1 g/dl (12.0-15.5); LYMPH # 0.9 10^3/uL (1.5-5.0); LYMPH % 7.5 % (24.0-44.0); MEAN CORPUSCULAR HEMOGLOBIN 28.4 pg (27.0-33.0); MEAN CORPUSCULAR HGB CONC 29.2 g/dl (32.0-36.5); MEAN CORPUSCULAR VOLUME 97.2 fl (80.0-96.0); MONO # 0.9 10^3/uL (0.0-0.8); MONO % 7.4 % (2.0-8.0); NEUTROPHILS # 10.1 10^3/uL (1.5-8.5); PLATELET COUNT, AUTOMATED 209 10^3/uL (150-450); RED BLOOD COUNT 2.85 10^6/uL (4.00-5.40); WHITE BLOOD COUNT 12.2 10^3/uL (4.0-10.0)
[2020-11-29 06:58] LABS: ALBUMIN 2.4 GM/DL (3.2-5.2); BILIRUBIN,TOTAL 0.4 MG/DL (0.2-1.0); CALCIUM LEVEL 8.6 MG/DL (8.8-10.2); CREATININE FOR GFR 2.37 MG/DL (0.55-1.30); GLOMERULAR FILTRATION RATE 21.5 (>39); TOTAL PROTEIN 5.4 GM/DL (6.4-8.2)
[2020-11-29] MEDS: SYMBICORT 160/4.5MCG INHALER 6GM INH SCH ×2 (08:05→20:00)
[2020-11-29] MEDS: LACTOBACILLUS ACIDOPHILUS CAP (BACID) PO SCH ×2 (08:34→21:37)
[2020-11-29] MEDS: FERROUS SULFATE 325MG TAB PO SCH (08:34)
[2020-11-29] MEDS: DOCUSATE SODIUM 100MG CAPSULE PO SCH ×2 (08:34→21:37)
[2020-11-29] MEDS: OMEPRAZOLE 20 MG CAP PO SCH (08:34)
[2020-11-29] MEDS: CALCITRIOL 0.25 MCG CAP (S0169) PO SCH (08:34)
[2020-11-29] MEDS: ASPIRIN 81MG ENTERIC TABLET PO SCH (08:34)
[2020-11-29] MEDS: LEVOTHYROXINE 125MCG TABLET (0.125MG) PO SCH (08:34)
[2020-11-29] MEDS: HumaLOG INSULIN (NovoLOG) PER UNIT SC SCH ×4 (08:35→20:38)
[2020-11-29] MEDS ORDERED: TORSEMIDE 20 MG TAB PO SCH (09:00)
--- NOTE | 2020-11-29 11:40 | IPNPDOC ---
Subjective Date Seen The patient was seen on 11/29/20. Subjective Chief Complaint/HPI Feels better today, denies any shortness of breath, used CPAP overnight, ABG improved. Patient indicated that she does not want to go to intermediate anymore wants to go home. Spoke with daughter Nicky who wants to take mom home. Nicky is present at home always and security says she would be able to take care of patient if she gets some home care services. I did indicate that she will likely get only 2 or 3 hours a day of home care services. I indicated to Nicky that the patient is at this point almost total care and unable to get out of bed by herself. Nicky said that she has a hospital bed at bedside commode and oxygen at home. I did say that she may not be able to get out of bed to the commode even. She only does not have wheelchair ramp into the apartment. She reported that she got a letter from her primary care provider stating that she needed a wheel chair about 5 months ago which she submitted to the housing agency and the housing agency indicated that they would put in a wheelchair ramp but that has not happened till now. She was requesting if we could help her with the housing agency about the ramp placement. I have consulted [facility] and will discuss with them patient's and patient's daughter's co ncerns. In the meantime will ask PT and OT to start working with her. Objective Physical Examination General Exam: Positive: Alert, Cooperative, No Acute Distress Eye Exam: Positive: PERRLA, Conjunctiva & lids normal, EOMI; Negative: Sclera icteric Neck Exam: Positive: Supple; Negative: JVD, thyromegaly Chest Exam: Positive: Diminished, Other (bibasilar crackles, kyphoscoliosis) Heart Exam: Positive: Rate Normal, Regular Rhythm, Normal S1, Normal S2; Negative: Murmurs, Rubs Abdomen Exam: Positive: Normal bowel sounds, Soft; Negative: Tenderness Extremity Exam: Negative: Clubbing, Cyanosis, Edema Skin Exam: Positive: Breakdown (Right groin 2 cm healing surgical lesion), Other skin issue (Extensive bruising all over the lower abdomen and extending to the left buttocks and hips) Psych Exam: Positive: Memory Intact, Oriented x 3 Assessment /Plan Assessment Mrs. Duran is a 70 year old female resident of [facility] with past medical history of ESRD on hemodialysis, CAD status post CABG in 07/27/2020, chronic diastolic CHF, obesity, DIXON, chronic respiratory failure, reports uses oxygen mostly at night, pulmonary hypertension, diabetes, asthma, GERD, hypothyroidism, peripheral vascular disease, who presented to the emergency room from hemodialysis with shortness of breath, runny nose, and cough of two days du ration after being found to have an oxygen saturation in the mid 70's during hemodialysis. She was picked up by EMS and placed on 4L of O2 which increased her O2 saturations into the 90's. Mrs. Duran was recently hospitalized at [facility] on 11/17/20, 10/20/20, and 10/11/20 for shortness of breath, CHF exacerbation, and acute on chronic respiratory failure respectfully. Work-up in the ED showed bilateral pneumonia with acute on chronic respiratory failure with hypoxia and hypercarbia. Patient was placed on BiPAP support and admitted. Bilateral pneumonia Likely healthcare associated pneumonia patient has multiple hospitalizations in the recent past 1 out of 2 blood cultures positive showing gram-positive cocci in clusters. We will continue with Zosyn MRSA PCR negative so Vanco was discontinued Acute on chronic respiratory failure with hypoxia and hypercarbia Continues to have CO2 retention though a little better than before We will continue with BiPAP tabletop at night We will continue oxygenation with nasal cannula during the day ABG improved Obesity/DIXON/possible obesity hypoventilation BIPAP at night ESRD Nephrology has been consulted for maintenance hemodialysis GI bleed ruled out Stool occult negative Hemoglobin stable Continue on ferrous sulfate. Restart Plavix. Continue aspirin Chronic HFpEF Fluid status to be managed by dialysis continue torsemide Insulin Dependent Diabetes Mellitus Continue on Levemir and lispro GERD continue omeprazole CAD s/p CABG Continue Plavix, statin, We will hold Plavix as there is some question about black tarry stools and possible GI bleed Hold metoprolol as her blood pressure low normal Asthma Continue same Hyperlipidemia Continue statin Peripheral vascular disease Status post stents in the legs. Had right groin aneurysm surgery and still has a small about 2 cm open wound which is dry and not infected Continue aspirin Restart Plavix as stool occult blood is negative. She is having dark green soft pasty stools. Hypothyroid Continue Synthroid Intertriginous candidiasis Will order nystatin powder Plan/VTE VTE Prophylaxis Ordered?: Yes VS, I&O, 24H, Fishbone Vital Signs/I&O Vital Signs Date Time Temp Pulse Resp B/P (MAP) Pulse Ox O2 Delivery O2 Flow Rate FiO2 11/29/20 09:00 1.0 11/29/20 06:00 96.4 73 14 100/47 (64) 98 NIPPV (BIPAP/CPAP) 11/27/20 08:07 30 I&O- Last 24 Hours up to 6 AM 11/29/20 05:59 Intake Total 710 ml Output Total 1500 ml Balance -790 ml Laboratory Data 24H LABS Laboratory Tests 2 11/28/20 13:34: Bedside Glucose (Misc Panel) 75L 11/28/20 16:45: Bedside Glucose (Misc Panel) 116H 11/28/20 20:39: Bedside Glucose (Misc Panel) 145H 11/29/20 05:37: Immature Granulocyte % (Auto) 0.7, Neutrophils (%) (Auto) 83.0H, Lymphocytes (%) (Auto) 7.5L, Monocytes (%) (Auto) 7.4, Eosinophils (%) (Auto) 1.1, Basophils (%) (Auto) 0.3, Neutrophils # (Auto) 10.1H, Lymphocytes # (Auto) 0.9L, Monocytes # (Auto) 0.9H, Eosinophils # (Auto) 0.1, Basophils # (Auto) 0.0, Nucleated Red Blood Cells % (auto) 0.5H, Anion Gap 7L, Glomerular Filtration Rate 21.5L, Calcium Level 8.6L, Total Bilirubin 0.4, Aspartate Amino Transf (AST/SGOT) 27, Alanine Aminotransferase (ALT/SGPT) 20, Alkaline Phosphatase 96, Total Protein 5.4L, Albumin 2.4L, Albumin/Globulin Ratio 0.8L 11/29/20 05:50: Blood Gas Bicarbonate Standard 23.6, Arterial Blood pH 7.354, Arterial Blood Partial Pressure CO2 45.0, Arterial Blood Partial Pressure O2 134.9H, Arterial Blood Total CO2 25.9, Arterial Blood HCO3 24.5, Arterial Blood Base Excess -1.1, Arterial Blood Oxygen Saturation 99.1H CBC/BMP Laboratory Tests 11/29/20 05:37 Microbiology Microbiology 11/27/20 Stool Occult Blood (NAWAF) - Final, Complete 11/27/20 Blood Culture - Preliminary, Resulted No Growth after 48 hours. All Specime... 11/26/20 Blood Culture - Final, Complete Staphylococcus Epidermidis 11/26/20 Respiratory Virus Panel (PCR) (NAWAF) - Final, Complete Jacquie Marshall MD Nov 29, 2020 11:40
[2020-11-29] MEDS: NYSTATIN 100,000 UNITS/GM TOPICAL PWD 15 GM TOP SCH ×2 (12:00→21:39)
[2020-11-29 14:00] VITALS: BP 85/41
[2020-11-29] MEDS: MIDODRINE 5 MG TAB PO PRN (14:50)
--- NOTE | 2020-11-29 15:46 | IPN ---
PROGRESS NOTE DATE: 11/29/2020 Mrs. Duran is seen this morning on her bedside. She is feeling weak but denies any fever or chills. She was dialyzed yesterday, and she tolerated it reasonably well. She has chronic low blood pressure. She has no nausea or vomiting. Her appetite has been poor. PHYSICAL EXAMINATION: Temperature 96.4 degrees Fahrenheit, heart rate 72 per minute, respiratory rate 18 per minute, blood pressure 100/47 mmHg, and oxygen saturation 98%. Her head is atraumatic. Neck is supple, and jugular venous distention (JVD) is at least moderately elevated. She has a Perm-A-Cath in right shoulder area. Her heart sounds are irregular in rhythm and lungs with diminished breath sounds. Abdomen obese, soft, and nontender, and bowel sounds are normal. Extremities without any clubbing, but she does have mild cyanosis of her hands. Her hands are very cold. Neurologically she is awake, alert, and oriented times three. Today's labs show WBC count 12.2, hemoglobin 8.1, hematocrit 27.7. Sodium 136, potassium 4.0, BUN 11, creatinine 2.37, glucose 114, and calcium 8.6. PROBLEMS: 1. End-stage renal disease. Patient was dialyzed yesterday, and we will schedule next dialysis for Tuesday. At present, there is no emergent need for dialysis today. 2. Congestive heart failure. This is a chronic issue. We are unable to remove fluid aggressively due to low blood pressure. We will keep trying to optimize her volume status. 3. Anemia. Her anemia is moderate and not unchanged. She receives Aranesp once a week with dialysis. Complete blood count (CBC) will be checked again on Tuesday. 4. Pneumonia. Patient is being treated and seems to be improving. She is currently afebrile, and her leukocytosis is improved. She remains on Zosyn 2.25 grams every 8 hours. 5. Hypotension. This a chronic issue, and blood pressure remains low, even without dialysis. Her blood pressure gets worse when she is dialyzed. She has difficult time with fluid removal. We will try midodrine if her blood pressure remains low.
[2020-11-29 19:04] VITALS: BP 98/50
[2020-11-29] MEDS: SODIUM CHLORIDE 0.9% INJ 10 ML SYR IV PRN (21:38)
[2020-11-29] MEDS: LEVEMIR (INSULIN DETEMIR) 1 UNITS/0.01ML SC SCH (21:38)
[2020-11-29] MEDS: ATORVASTATIN 20 MG TAB PO SCH (21:38)
[2020-11-29 22:00] VITALS: BP 106/50
[2020-11-30] MEDS: IPRATROPIUM 0.5MG/ALBUTEROL 2.5MG INH SOL UD 3ML (DUONEB) NEB SCH ×4 (01:02→19:51)
[2020-11-30] MEDS: PIPERACILLIN/TAZOBACTAM SOD 2.25 GM in D5W MINI-BAG PLUS 50 ML IV SCH ×3 (04:19→20:46)
[2020-11-30] MEDS: SODIUM CHLORIDE 0.9% INJ 10 ML SYR IV SCH ×2 (04:20→13:07)
[2020-11-30 06:00] VITALS: BP 107/64
[2020-11-30] MEDS: HEPARIN SOD (PORCINE) 5000UNITS/ML 1ML VIAL/SYRINGE SC SCH (06:56)
[2020-11-30 07:16] LABS: BASO # 0.1 10^3/uL (0.0-0.2); BASO % 0.4 % (0.0-1.0); EOS # 0.3 10^3/uL (0.0-0.5); HEMATOCRIT 27.6 % (36.0-47.0); HEMOGLOBIN 8.1 g/dl (12.0-15.5); LYMPH # 0.7 10^3/uL (1.5-5.0); LYMPH % 5.5 % (24.0-44.0); MEAN CORPUSCULAR HEMOGLOBIN 28.4 pg (27.0-33.0); MEAN CORPUSCULAR HGB CONC 29.3 g/dl (32.0-36.5); MEAN CORPUSCULAR VOLUME 96.8 fl (80.0-96.0); MONO # 0.9 10^3/uL (0.0-0.8); MONO % 6.7 % (2.0-8.0); NEUTROPHILS # 11.5 10^3/uL (1.5-8.5); NEUTROPHILS % 84.7 % (36.0-66.0); PLATELET COUNT, AUTOMATED 197 10^3/uL (150-450); RED BLOOD COUNT 2.85 10^6/uL (4.00-5.40); WHITE BLOOD COUNT 13.5 10^3/uL (4.0-10.0)
[2020-11-30] MEDS: HumaLOG INSULIN (NovoLOG) PER UNIT SC SCH ×4 (07:30→21:00)
[2020-11-30 07:33] LABS: ALBUMIN 2.2 GM/DL (3.2-5.2); BILIRUBIN,TOTAL 0.4 MG/DL (0.2-1.0); CALCIUM LEVEL 9.2 MG/DL (8.8-10.2); CREATININE FOR GFR 3.79 MG/DL (0.55-1.30); GLOMERULAR FILTRATION RATE 12.5 (>39); POTASSIUM SERUM 3.8 MEQ/L (3.5-5.1); TOTAL PROTEIN 5.9 GM/DL (6.4-8.2)
[2020-11-30] MEDS: DOCUSATE SODIUM 100MG CAPSULE PO SCH ×2 (08:05→20:46)
[2020-11-30] MEDS: SYMBICORT 160/4.5MCG INHALER 6GM INH SCH ×2 (08:36→19:51)
[2020-11-30] MEDS ORDERED: MIDODRINE 5 MG TAB PO SCH (09:00)
[2020-11-30 09:10] VITALS: BP 110/66
[2020-11-30] MEDS: FERROUS SULFATE 325MG TAB PO SCH (09:34)
[2020-11-30] MEDS: MAALOX 30 ML SUSP *UDC PO PRN (09:34)
[2020-11-30] MEDS: ASPIRIN 81MG ENTERIC TABLET PO SCH (09:34)
[2020-11-30] MEDS: NYSTATIN 100,000 UNITS/GM TOPICAL PWD 15 GM TOP SCH ×2 (09:35→20:46)
[2020-11-30] MEDS: CALCITRIOL 0.25 MCG CAP (S0169) PO SCH (09:35)
[2020-11-30] MEDS: LACTOBACILLUS ACIDOPHILUS CAP (BACID) PO SCH ×2 (09:35→20:46)
[2020-11-30] MEDS: OMEPRAZOLE 20 MG CAP PO SCH (09:35)
[2020-11-30] MEDS: LEVOTHYROXINE 125MCG TABLET (0.125MG) PO SCH (09:35)
[2020-11-30 09:51] VITALS: BP 126/55
[2020-11-30 14:00] VITALS: BP 100/62
[2020-11-30] MEDS ORDERED: ONDANSETRON 4MG/2ML VIAL IV PRN (14:40)
[2020-11-30] MEDS ORDERED: PANTOPRAZOLE 40MG VIAL (C9113 PER 1) IV ONE (15:15)
--- NOTE | 2020-11-30 15:18 | IPNPDOC ---
Subjective Date Seen The patient was seen on 11/30/20. Subjective Chief Complaint/HPI No issues overnight. Complains of nausea since this morning. Has not been able to take breakfast and did not want lunch. SHe complained of acid reflux. She also complained of left chest pain worse on deep breaths and worse when she is moving her left arm. Objective Physical Examination General Exam: Positive: Alert, Cooperative, No Acute Distress Eye Exam: Positive: PERRLA, Conjunctiva & lids normal, EOMI; Negative: Sclera icteric Neck Exam: Positive: Supple; Negative: JVD, thyromegaly Chest Exam: Positive: Diminished, Other (bibasilar crackles, kyphoscoliosis) Heart Exam: Positive: Rate Normal, Regular Rhythm, Normal S1, Normal S2; Negative: Murmurs, Rubs Abdomen Exam: Positive: Normal bowel sounds, Soft; Negative: Tenderness Extremity Exam: Negative: Clubbing, Cyanosis, Edema Skin Exam: Positive: Breakdown (Right groin 2 cm healing surgical lesion), Other skin issue (Extensive bruising all over the lower abdomen and extending to the left buttocks and hips) Psych Exam: Positive: Memory Intact, Oriented x 3 Assessment /Plan Assessment Mrs. Duran is a 70 year old female resident of [facility] with past medical history of ESRD on hemodialysis, CAD status post CABG in 07/27/2020, chronic diastolic CHF, obesity, DIXON, chronic respiratory failure, reports uses oxygen mostly at night, pulmonary hypertension, diabetes, asthma, GERD, hypothyroidism, peripheral vascular disease, who presented to the emergency room from hemodialysis with shortness of breath, runny nose, and cough of two days duration after being found to have an oxygen saturation in the mid 70's during hemodialysis. She was picked up by EMS and placed on 4L of O2 which increased her O2 saturations into the 90's. Mrs. Duran was recently hospitalized at [facility] on 11/17/20, 10/20/20, and 10/11/20 for shortness of breath, CHF exacerbation, and acute on chronic respiratory failure respectfully. Work-up in the ED showed bilateral pneumonia with acute on chronic respiratory failure with hypoxia and hypercarbia. Patient was placed on BiPAP support and admitted. Bilateral pneumonia Likely healthcare associated pneumonia patient has multiple hospitalizations in the recent past 1 out of 2 blood cultures positive showing gram-positive cocci in clusters. We will continue with Zosyn MRSA PCR negative so Vanco was discontinued Acute on chronic respiratory failure with hypoxia and hypercarbia Continues to have CO2 retention though a little better than before We will continue with BiPAP tabletop at night We will continue oxygenation with nasal cannula during the day ABG improved Obesity/DIXON/possible obesity hypoventilation BIPAP at night ESRD Nephrology has been consulted for maintenance hemodialysis Chronic Hypotension continue midodrine Chronic HFpEF Fluid status to be managed by dialysis continue torsemide Insulin Dependent Diabetes Mellitus Continue on Levemir and lispro GERD continue omeprazole CAD s/p CABG Continue Plavix, statin, We will hold Plavix as there is some question about black tarry stools and possible GI bleed Hold metoprolol as her blood pressure low normal Asthma Continue same Hyperlipidemia Continue statin Peripheral vascular disease Status post stents in the legs. Had right groin aneurysm surgery and still has a small about 2 cm open wound wh ich is dry and not infected Continue aspirin Restart Plavix as stool occult blood is negative. She is having dark green soft pasty stools. Hypothyroid Continue Synthroid Intertriginous candidiasis Will order nystatin powder Plan/VTE VTE Prophylaxis Ordered?: Yes VS, I&O, 24H, Fishbone Vital Signs/I&O Vital Signs Date Time Temp Pulse Resp B/P (MAP) Pulse Ox O2 Delivery O2 Flow Rate FiO2 11/29/20 22:00 98.0 74 16 106/50 (68) 95 Nasal Cannula 2.0 11/27/20 08:07 30 I&O- Last 24 Hours up to 6 AM 11/30/20 05:59 Intake Total 960 ml Output Total 0 ml Balance 960 ml Laboratory Data 24H LABS Laboratory Tests 2 11/29/20 11:41: Bedside Glucose (Misc Panel) 137H 11/29/20 17:16: Bedside Glucose (Misc Panel) 121H 11/29/20 20:33: Bedside Glucose (Misc Panel) 163H Microbiology Microbiology 11/27/20 Stool Occult Blood (NAWAF) - Final, Complete 11/27/20 Blood Culture - Preliminary, Resulted No Growth after 48 hours. All Specime... 11/26/20 Blood Culture - Final, Complete Staphylococcus Epidermidis 11/26/20 Respiratory Virus Panel (PCR) (NAWAF) - Final, Complete Jacquie Marshall MD Nov 30, 2020 07:07
[2020-11-30] MEDS: MIDODRINE 5 MG TAB PO SCH (15:40)
[2020-11-30] MEDS: SODIUM CHLORIDE 0.9% INJ 10 ML SYR IV PRN (15:41)
--- NOTE | 2020-11-30 19:39 | IPN ---
PROGRESS NOTE DATE: 11/30/2020 Ms. Duran is seen this morning on her bedside. She reports nausea and abdominal congestion. She reports that she could not eat well this morning. Her chronic dyspnea is unchanged and she denies any fevers or chills. On physical exam, temperature 98.4 degrees Fahrenheit, heart rate 84 per minute, and respiratory rate 20 per minute. Blood pressure 126/55 mmHg and oxygen saturation 95% on 1 liter oxygen. Her head is atraumatic. Neck supple and jugular venous distention (JVD) is prominent. Hemodialysis catheter is present on right side of her neck and right shoulder. Her heart sounds are irregular in rhythm and lungs with diminished breath sounds and bibasilar crepitations. Abdomen soft and nontender and bowel sounds are present. Extremities without any cyanosis or clubbing. Neurologically she is at her baseline mentation without focal deficit. Today's labs show WBC count 13.5, hemoglobin 8.1, and hematocrit 27.6. Sodium 137 and potassium 3.8. BUN is only 18 and creatinine 3.79. PROBLEMS: 1. End-stage renal disease. Patient will be dialyzed tomorrow as it is her regular dialysis day. There is no emergent need for dialysis today. 2. Congestive heart failure. Her volume status is chronically decompensated. She does not tolerate aggressive fluid removal. We will continue with three times a week dialysis and remove as much fluid as she could tolerate. 3. Anemia. Her anemia is significant but stable and without any global director air and climate change the last few days. She receives Aranesp once a week with dialysis and will continue with the same. No emergent need for a transfusion at present. 4. Recurrent hypotension. Most likely this is related to atrial fibrillation. Her blood pressure seems to be stable at present. Will continue as her heart rate is well controlled. No change in antihypertensives are being made today.
[2020-11-30] MEDS: LEVEMIR (INSULIN DETEMIR) 1 UNITS/0.01ML SC SCH (20:45)
[2020-11-30] MEDS: PANTOPRAZOLE 40MG VIAL (C9113 PER 1) IV SCH (20:45)
[2020-11-30] MEDS: ATORVASTATIN 20 MG TAB PO SCH (20:46)
[2020-11-30 22:52] VITALS: BP 99/46
[2020-12-01] MEDS: IPRATROPIUM 0.5MG/ALBUTEROL 2.5MG INH SOL UD 3ML (DUONEB) NEB SCH ×4 (02:40→19:51)
[2020-12-01] MEDS: PIPERACILLIN/TAZOBACTAM SOD 2.25 GM in D5W MINI-BAG PLUS 50 ML IV SCH ×3 (04:17→20:56)
[2020-12-01] MEDS: SODIUM CHLORIDE 0.9% INJ 10 ML SYR IV SCH ×2 (04:18→17:13)
[2020-12-01] MEDS: MAALOX 30 ML SUSP *UDC PO PRN (05:36)
[2020-12-01] MEDS: PANTOPRAZOLE 40MG VIAL (C9113 PER 1) IV SCH ×2 (05:36→21:00)
[2020-12-01] MEDS: ASPIRIN 81MG ENTERIC TABLET PO SCH (05:37)
[2020-12-01] MEDS: LACTOBACILLUS ACIDOPHILUS CAP (BACID) PO SCH ×2 (05:37→21:00)
[2020-12-01] MEDS: CALCITRIOL 0.25 MCG CAP (S0169) PO SCH (05:37)
[2020-12-01] MEDS: LEVOTHYROXINE 125MCG TABLET (0.125MG) PO SCH (05:37)
[2020-12-01] MEDS: DOCUSATE SODIUM 100MG CAPSULE PO SCH ×2 (05:38→21:00)
[2020-12-01] MEDS: FERROUS SULFATE 325MG TAB PO SCH (05:38)
[2020-12-01] MEDS: NYSTATIN 100,000 UNITS/GM TOPICAL PWD 15 GM TOP SCH ×2 (05:39→21:47)
[2020-12-01 06:18] LABS: BASO # 0.1 10^3/uL (0.0-0.2); BASO % 0.4 % (0.0-1.0); EOS # 0.4 10^3/uL (0.0-0.5); HEMATOCRIT 25.9 % (36.0-47.0); HEMOGLOBIN 7.5 g/dl (12.0-15.5); LYMPH % 6.7 % (24.0-44.0); MEAN CORPUSCULAR HEMOGLOBIN 27.5 pg (27.0-33.0); MEAN CORPUSCULAR VOLUME 94.9 fl (80.0-96.0); MONO # 0.8 10^3/uL (0.0-0.8); MONO % 5.8 % (2.0-8.0); NEUTROPHILS # 11.7 10^3/uL (1.5-8.5); NEUTROPHILS % 83.3 % (36.0-66.0); PLATELET COUNT, AUTOMATED 191 10^3/uL (150-450); RED BLOOD COUNT 2.73 10^6/uL (4.00-5.40); WHITE BLOOD COUNT 14.1 10^3/uL (4.0-10.0)
[2020-12-01 06:49] VITALS: BP 101/50
[2020-12-01 06:52] LABS: ALBUMIN 2.1 GM/DL (3.2-5.2); BILIRUBIN,TOTAL 0.4 MG/DL (0.2-1.0); CALCIUM LEVEL 8.4 MG/DL (8.8-10.2); CREATININE FOR GFR 4.8 MG/DL (0.55-1.30); GLOMERULAR FILTRATION RATE 9.5 (>39); POTASSIUM SERUM 4.1 MEQ/L (3.5-5.1); TOTAL PROTEIN 5.2 GM/DL (6.4-8.2)
[2020-12-01] MEDS: HumaLOG INSULIN (NovoLOG) PER UNIT SC SCH ×4 (07:05→21:00)
[2020-12-01] MEDS: SYMBICORT 160/4.5MCG INHALER 6GM INH SCH ×2 (07:35→19:51)
[2020-12-01] MEDS: CLOPIDOGREL 75 MG TAB PO SCH (09:53)
[2020-12-01] MEDS: MIDODRINE 5 MG TAB PO SCH ×3 (09:54→17:00)
[2020-12-01 13:15] VITALS: BP 101/45
[2020-12-01 14:00] VITALS: BP 93/52
[2020-12-01 15:00] VITALS: BP 96/40
[2020-12-01 15:01] LABS: CK-MB VALUE MASS < 1.0 NG/ML (<3.6); CPK CREATINE PHOSPHOKINASE 15 U/L (26-192); MB/CK RELATIVE INDEX 6.67 (< OR =4); TROPONIN I < 0.02 NG/ML (< 0.10)
--- NOTE | 2020-12-01 16:37 | IPN ---
PROGRESS NOTE DATE: 12/01/2020 SUBJECTIVE: Mrs. Duran is seen this morning on her bedside. She is still not feeling well and reports that she could not eat much as her stomach gets upset when she tries to eat. She has no fever or chills. She reports that she did have a soft bowel movement this morning. OBJECTIVE: VITAL SIGNS: Temperature is 98.6 degrees Fahrenheit, heart rate is 70 per minute, and respiratory rate is 18 per minute. Blood pressure is 101/50 mmHg and oxygen saturation is 99% on 2 liters of oxygen. HEAD: Atraumatic. NECK: Supple. JVD is difficult to be assessed. She has a hemodialysis catheter on the right shoulder area. HEART: Her heart sounds are irregular in rhythm. LUNGS: Diminished breath sounds at the dependent parts. ABDOMEN: Obese, soft and nontender. Bowel sounds are normal. EXTREMITIES: Without any cyanosis or clubbing. She has no peripheral edema on her lower extremities. NEUROLOGIC: She is awake, alert and oriented x3. LABORATORY DATA: Today's labs showed a WBC count of 14.1, hemoglobin 7.5 and hematocrit 25.9. Platelets are 191. Sodium is 134, potassium is 4.1, BUN is 24 and creatinine 4.8, calcium level is 8.4 and glucose is 99. PROBLEMS: 1. Endstage renal disease. Patient is due for dialysis and will be dialyzed this afternoon. 2. Congestive heart failure, volume status is clinically difficult to be assessed. She does not tolerate aggressive fluid removal. Will try to remove about 1.5 liters as tolerated. 3. Hyponatremia. She has mild hyponatremia related to endstage renal disease and congestive heart failure. This will be corrected with dialysis today and no other intervention will be needed. 4. Anemia, her anemia did get worse and we will transfuse her 1 unit of packed RBCs during dialysis today. If her anemia does not improve significantly, then will consider another unit with the next dialysis. 5. Recurrent nausea and loss of appetite. She probably has some chronic GI issues. I will recommend the Hospitalist Service gets a CT scan of the abdomen and pelvis probably with contrast and consider GI evaluation if needed. 6. Hypotension. This is another chronic issue she has and she remains on Midodrine 10 mg t.i.d. 7. Hyperparathyroidism, patient has secondary hyperparathyroidism and has been on Calcitriol 0.25 mcg daily. 8. Pneumonia. Patient remains on Zosyn and is currently afebrile.
[2020-12-01] MEDS ORDERED: LEVEMIR (INSULIN DETEMIR) 1 UNITS/0.01ML SC ONE (16:55)
[2020-12-01 20:00] VITALS: BP 105/47
--- NOTE | 2020-12-01 20:15 | IPNPDOC ---
Subjective Date Seen The patient was seen on 12/01/20. Subjective Chief Complaint/HPI Continues to complain of nausea and indigestion. She could not have any meals yesterday and also refused breakfast this morning. Also continues to complain of left-sided chest pain below the breast and left-sided back pain. Worse with deep breaths and and moving the left arm. She is not hypoxic more than baseline and not tachycardic. Objective Physical Examination General Exam: Positive: Alert, Cooperative, No Acute Distress Eye Exam: Positive: PERRLA, Conjunctiva & lids normal, EOMI; Negative: Sclera icteric Neck Exam: Positive: Supple; Negative: JVD, thyromegaly Chest Exam: Positive: Diminished, Other (bibasilar crackles, kyphoscoliosis) Heart Exam: Positive: Rate Normal, Regular Rhythm, Normal S1, Normal S2; Negative: Murmurs, Rubs Abdomen Exam: Positive: Normal bowel sounds, Soft; Negative: Tenderness Extremity Exam: Negative: Clubbing, Cyanosis, Edema Skin Exam: Positive: Breakdown (Right groin 2 cm healing surgical lesion), Other skin issue (Extensive bruising all over the lower abdomen and extending to the left buttocks and hips) Psych Exam: Positive: Memory Intact, Oriented x 3 Assessment /Plan Assessment Mrs. Duran is a 70 year old female resident of [facility] with past medical history of ESRD on hemodialysis, CAD status post CABG in 07/27/2020, chronic diastolic CHF, obesity, DIXON, chronic respiratory failure, reports uses oxygen mostly at night, pulmonary hypertension, diabetes, asthma, GERD, hypothyroidism, peripheral vascular disease, who presented to the emergency room from hemodialysis with shortness of breath, runny nose, and cough of two days duration after being found to have an oxygen saturation in the mid 70's during hemodialysis. She was picked up by EMS and placed on 4L of O2 which increased her O2 saturations into the 90's. Mrs. Duran was recently hospitalized at [facility] on 11/17/20, 10/20/20, and 10/11/20 for shortness of breath, CHF exacerbation, and acute on chronic respiratory failure respectfully. Work-up in the ED showed bilateral pneumonia with acute on chronic respiratory failure with hypoxia and hypercarbia. Patient was placed on BiPAP support and admitted. Chest pain/epigastric pain/nausea/ indigestion We will get cardiac markers and EKG. Will consider CT angio of the chest if discomfort persists. Bilateral pneumonia Likely healthcare associated pneumonia patient has multiple hospitalizations in the recent past 1 out of 2 blood cultures positive showing gram-positive cocci in clusters. We will continue with Zosyn MRSA PCR negative so Vanco was discontinued Acute on chronic respiratory failure with hypoxia and hypercarbia Continues to have CO2 retention though a little better than before We will continue with BiPAP tabletop at night We will continue oxygenation with nasal cannula during the day ABG improved Obesity/DIXON/possible obesity hypoventilation BIPAP at night ESRD Nephrology has been consulted for maintenance hemodialysis Acute on chronic anemia given 1 unit of PRBC. Chronic Hypotension continue midodrine Chronic HFpEF Fluid status to be managed by dialysis continue torsemide Insulin Dependent Diabetes Mellitus Continue on Levemir and lispro GERD With likely gastritis We will increase PPI to 40 twice daily CAD s/p CABG Continue Plavix, statin, Hold metoprolol as her blood pressure is low Asthma Continue same Hyperlipidemia Continue statin Peripheral vascular disease Status post stents in the legs. Had right groin aneurysm surgery and still has a small about 2 cm open wound which is dry and not infected Continue aspirin Restart Plavix as stool occult blood is negative. She is having dark green soft pasty stools. Hypothyroid Continue Synthroid Intertriginous candidiasis Will order nystatin powder Dispo: Patient and daughter wishes her to go home. She does not want to be in a rehab or NH any more. Plan/VTE VTE Prophylaxis Ordered?: Yes VS, I&O, 24H, Fishbone Vital Signs/I&O Vital Signs Date Time Temp Pulse Resp B/P (MAP) Pulse Ox O2 Delivery O2 Flow Rate FiO2 12/01/20 13:15 97.8 83 16 101/45 Nasal Cannula 2.0 12/01/20 06:49 99 11/27/20 08:07 30 I&O- Last 24 Hours up to 6 AM 12/01/20 05:59 Intake Total 550 ml Output Total 0 ml Balance 550 ml Laboratory Data 24H LABS Laboratory Tests 2 11/30/20 17:33: Bedside Glucose (Misc Panel) 107 11/30/20 19:38: Bedside Glucose (Misc Panel) 164H 12/01/20 05:40: Immature Granulocyte % (Auto) 0.8, Neutrophils (%) (Auto) 83.3H, Lymphocytes (%) (Auto) 6.7L, Monocytes (%) (Auto) 5.8, Eosinophils (%) (Auto) 3.0, Basophils (%) (Auto) 0.4, Neutrophils # (Auto) 11.7H, Lymphocytes # (Auto) 1.0L, Monocytes # (Auto) 0.8, Eosinophils # (Auto) 0.4, Basophils # (Auto) 0.1, Nucleated Red Blood Cells % (auto) 0.3H, Anion Gap 6L, Glomerular Filtration Rate 9.5L, Calcium Level 8.4L, Total Bilirubin 0.4, Aspartate Amino Transf (AST/SGOT) 17, Alanine Aminotransferase (ALT/SGPT) 18, Alkaline Phosphatase 86, Total Protein 5.2L, Albumin 2.1L, Albumin/Globulin Ratio 0.7L 12/01/20 12:00: Bedside Glucose (Misc Panel) 140H CBC/BMP Laboratory Tests 12/01/20 05:40 Microbiology Microbiology 11/27/20 Stool Occult Blood (NAWAF) - Final, Complete 11/27/20 Blood Culture - Preliminary, Resulted No Growth after 72 hours. All specime... 11/26/20 Blood Culture - Final, Complete Staphylococcus Epidermidis 11/26/20 Respiratory Virus Panel (PCR) (NAWAF) - Final, Complete Jacquie Marshall MD Dec 01, 2020 14:24
[2020-12-01] MEDS: LEVEMIR (INSULIN DETEMIR) 1 UNITS/0.01ML SC SCH (21:00)
[2020-12-01] MEDS: ATORVASTATIN 20 MG TAB PO SCH (21:00)
--- NOTE | 2020-12-01 21:18 | ECGEPIP ---
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 Electronically Signed on 12-01-2020 21:18:10 EDT by Jose Escobar
[2020-12-01 21:53] LABS: CPK CREATINE PHOSPHOKINASE 19 U/L (26-192); MB/CK RELATIVE INDEX 5.26 (< OR =4); TROPONIN I < 0.02 NG/ML (< 0.10)
[2020-12-01 22:00] VITALS: BP 105/47
[2020-12-02] MEDS: IPRATROPIUM 0.5MG/ALBUTEROL 2.5MG INH SOL UD 3ML (DUONEB) NEB SCH ×4 (01:24→20:00)
[2020-12-02] MEDS: PIPERACILLIN/TAZOBACTAM SOD 2.25 GM in D5W MINI-BAG PLUS 50 ML IV SCH ×3 (03:33→21:23)
[2020-12-02 06:00] VITALS: BP 107/49
[2020-12-02 06:03] LABS: BASO # 0.1 10^3/uL (0.0-0.2); BASO % 0.5 % (0.0-1.0); EOS # 0.4 10^3/uL (0.0-0.5); EOS % 2.4 % (0.0-3.0); HEMATOCRIT 33.9 % (36.0-47.0); LYMPH # 0.9 10^3/uL (1.5-5.0); MEAN CORPUSCULAR HEMOGLOBIN 28.5 pg (27.0-33.0); MEAN CORPUSCULAR HGB CONC 30.1 g/dl (32.0-36.5); MEAN CORPUSCULAR VOLUME 94.7 fl (80.0-96.0); MONO # 0.9 10^3/uL (0.0-0.8); NEUTROPHILS # 12.9 10^3/uL (1.5-8.5); NEUTROPHILS % 84.5 % (36.0-66.0); PLATELET COUNT, AUTOMATED 195 10^3/uL (150-450); RED BLOOD COUNT 3.58 10^6/uL (4.00-5.40); WHITE BLOOD COUNT 15.3 10^3/uL (4.0-10.0)
[2020-12-02 06:09] LABS: HEMOGLOBIN 10.2 g/dl (12.0-15.5)
[2020-12-02] MEDS: SODIUM CHLORIDE 0.9% INJ 10 ML SYR IV SCH ×2 (06:23→17:57)
[2020-12-02 06:35] LABS: ALBUMIN 2.3 GM/DL (3.2-5.2); ALT/SGPT 19 U/L (12-78); BILIRUBIN,TOTAL 0.4 MG/DL (0.2-1.0); BLOOD UREA NITROGEN 10 MG/DL (7-18); CARBON DIOXIDE LEVEL 25 MEQ/L (21-32); CHLORIDE LEVEL 104 MEQ/L (98-107); CK-MB VALUE MASS 1.5 NG/ML (<3.6); CPK CREATINE PHOSPHOKINASE 16 U/L (26-192); CREATININE FOR GFR 2.91 MG/DL (0.55-1.30); GLUCOSE, FASTING 100 MG/DL (70-100); MB/CK RELATIVE INDEX 9.38 (< OR =4); POTASSIUM SERUM 4.1 MEQ/L (3.5-5.1); SODIUM LEVEL 138 MEQ/L (136-145); TOTAL PROTEIN 5.6 GM/DL (6.4-8.2); TROPONIN I < 0.02 NG/ML (< 0.10)
[2020-12-02] MEDS: HumaLOG INSULIN (NovoLOG) PER UNIT SC SCH ×4 (07:30→21:00)
[2020-12-02] MEDS: SYMBICORT 160/4.5MCG INHALER 6GM INH SCH ×2 (07:55→20:06)
[2020-12-02] MEDS: LACTOBACILLUS ACIDOPHILUS CAP (BACID) PO SCH ×2 (09:24→21:25)
[2020-12-02] MEDS: LEVOTHYROXINE 125MCG TABLET (0.125MG) PO SCH (09:24)
[2020-12-02] MEDS: CLOPIDOGREL 75 MG TAB PO SCH (09:24)
[2020-12-02] MEDS: ASPIRIN 81MG ENTERIC TABLET PO SCH (09:24)
[2020-12-02] MEDS: FERROUS SULFATE 325MG TAB PO SCH (09:24)
[2020-12-02] MEDS: CALCITRIOL 0.25 MCG CAP (S0169) PO SCH (09:24)
[2020-12-02] MEDS: DOCUSATE SODIUM 100MG CAPSULE PO SCH ×2 (09:24→21:00)
[2020-12-02] MEDS: PANTOPRAZOLE 40MG VIAL (C9113 PER 1) IV SCH ×2 (09:24→21:24)
[2020-12-02] MEDS: NYSTATIN 100,000 UNITS/GM TOPICAL PWD 15 GM TOP SCH ×2 (09:25→21:25)
[2020-12-02] MEDS: MIDODRINE 5 MG TAB PO SCH ×3 (09:25→17:56)
[2020-12-02 11:02] VITALS: O2SAT 96
--- NOTE | 2020-12-02 12:38 | IPN ---
PROGRESS NOTE DATE: 12/02/2020 SUBJECTIVE: Ms. Duran is seen this morning on her bedside. She is feeling better and reports that her nausea has improved. She was dialyzed yesterday and also she was transfused 1 unit of packed RBCs. She is still very weak and remains on oxygen due to shortness of breath. PHYSICAL EXAMINATION: Temperature 97.8 degrees Fahrenheit, heart rate 80 per minute and respiratory rate 18 per minute. Blood pressure 107/49 mmHg and oxygen saturation 96% on 1 liter oxygen. Head: Atraumatic. Neck: Supple and JVD is mildly elevated. Heart: Sounds are irregular. Lungs: Diminished breath sounds at dependent parts. Abdomen: Soft and nontender and bowel sounds are normal. Extremities: Without any cyanosis or clubbing. She has a PICC line in her right upper arm. She has a hemodialysis catheter in the right shoulder area. Neurologically: She is at her baseline mentation without any focal deficit. LABORATORY DATA: Today's labs show: WBC count 15.3, hemoglobin is up to 10.2 and hematocrit 33.9. Sodium 138, potassium 4.1, BUN 10, creatinine 2.91. Total protein is 5.6 and albumin 23. PROBLEMS/PLAN: 1. End-stage renal disease: Patient was dialyzed yesterday and we will plan next dialysis for tomorrow. There is no emergent need for dialysis today. 2. Anemia: Her anemia improved following transfusion of 1 unit of packed RBCs. There is no active bleeding noticed. 3. Congestive heart failure: This is a chronic issue and still somewhat decompensated. Unfortunately she does not tolerate aggressive fluid removal. We will try to remove about 1.5 liters with the next dialysis tomorrow. 4. Hypotension: She has chronic hypotension and remains on midodrine 10 mg three times a day. 5. Pneumonia: Patient is currently afebrile; however, she still has leukocytosis. She remains on Zosyn 2.25 grams q8h.
[2020-12-02 14:00] VITALS: BP 106/66
--- NOTE | 2020-12-02 17:55 | IPNPDOC ---
Text Note Date of Service The patient was seen on 12/02/20. NOTE Subjective: Patient is a 70-year-old female who presented to the emergency d epartment short of breath and was found to have bilateral pneumonia. Patient says that she feels weak and tired today. Patient says her shortness of breath is mildly improved. Patient received dialysis yesterday. Patient states that the wound in her groin is also improved. Patient denies any chest pain at this time. Review of systems: General: Patient denies fevers HEENT: Patient denies headaches Cardiovascular: Patient denies chest pain Respiratory: Patient reports improvement of her shortness of breath GI: Patient denies abdominal pain, nausea, vomiting, diarrhea : Patient denies increased frequency or pain with urination Extremities: Patient denies swelling or pain in extremities Neurological: Patient denies numbness or tingling in legs Physical exam: Vitals: See below General: Alert and oriented female patient who was laying in bed when I walked in the room. Patient had nasal cannula oxygen in place. Patient did not appear to be in any acute distress. HEENT: Normocephalic, atraumatic, moist mucous membranes. Neck: No lymphadenopathy or thyromegaly Cardiac: Regular rate and rhythm, no murmurs, normal S1, normal S2 Pulm: Bibasilar crackles Abd: Nondistended, nontender to palpation, normal bowel sounds Ext: No edema bilateral lower extremities. There is a wound in the right groin that is about 2 cm in size that does not have any surrounding erythema or purulent discharge Labs: See below Imaging: No new imaging has been performed Assessment/plan: 70-year-old female is a resident of [facility] with past medical history of ESRD on hemodialysis who presented to the hospital with increased shortness of breath and CHF exacerbation who was worked up to find a bilateral pneumonia with acute on chronic hypoxic respiratory failure. 1. Acute on chronic respiratory failure with hypoxia and hypercarbia. Patient was found to have CO2 retention. Patient will continue with tabletop BiPAP at night. Continue with nasal cannula oxygen during the day. Patient will continue with dialysis. 2. Bilateral pneumonia. Likely healthcare associated pneumonia due to multiple hospitalizations. Patient will continue with Zosyn. MRSA PCR negative so vanco mycin has been discontinued. 3. Chest pain, this is resolved. Patient had similar episodes in prior hospitalizations. 4. Obesity/DIXON/possible obesity hypoventilation. Continue BiPAP/CPAP at night. 5. ESRD. Nephrology has been consulted for maintenance hemodialysis. 6. Acute on chronic anemia. Patient was given a unit of packed red blood cells. 7. Insulin-dependent diabetes mellitus. Continue sliding scale insulin with Levemir. 8. Chronic hypotension. Continue midodrine. 9. Chronic heart failure preserved ejection fraction. Fluid status to be managed by dialysis. 10. GERD with likely gastritis. Continue PPI 40 twice daily. 11. Coronary disease status post CABG. Continue Plavix, statin. 12. Asthma. Continue home inhalers. 13. Hyperlipidemia. Continue statin. 14. Peripheral vascular disease. Status post stenting in both bilateral legs. 15. Hypothyroidism. Continue Synthroid. 16. Intertriginous candidiasis. Will order nystatin powder. DVT Prophylaxis: Heparin Disposition: Pending clinical improvement. Patient would like to return home rather than [place] rehab. VS,Fishbone, I+O VS, Fishbone, I+O Laboratory Tests 12/02/20 05:39 12/02/20 05:40 Vital Signs Date Time Temp Pulse Resp B/P (MAP) Pulse Ox O2 Delivery O2 Flow Rate FiO2 12/02/20 14:00 98.0 88 18 106/66 (79) 98 Nasal Cannula 2.0 11/27/20 08:07 30 I&O- Last 24 Hours up to 6 AM 12/02/20 06:00 Intake Total 1400 ml Output Total 2000 ml Balance -600 ml GLORIA WINCHESTER DO Dec 02, 2020 17:55
[2020-12-02] MEDS: HEPARIN SOD (PORCINE) 5000UNITS/ML 1ML VIAL/SYRINGE SQ SCH (21:24)
[2020-12-02] MEDS: LEVEMIR (INSULIN DETEMIR) 1 UNITS/0.01ML SC SCH (21:24)
[2020-12-02] MEDS: ATORVASTATIN 20 MG TAB PO SCH (21:25)
[2020-12-02 22:00] VITALS: BP 106/45
[2020-12-02] MEDS: SODIUM CHLORIDE 0.9% INJ 10 ML SYR IV PRN (22:18)
[2020-12-03] MEDS: IPRATROPIUM 0.5MG/ALBUTEROL 2.5MG INH SOL UD 3ML (DUONEB) NEB SCH ×4 (01:27→20:00)
[2020-12-03] MEDS: PIPERACILLIN/TAZOBACTAM SOD 2.25 GM in D5W MINI-BAG PLUS 50 ML IV SCH ×3 (04:28→20:07)
[2020-12-03] MEDS: SODIUM CHLORIDE 0.9% INJ 10 ML SYR IV SCH ×2 (05:28→17:45)
[2020-12-03 06:00] VITALS: BP 106/44
[2020-12-03 06:12] LABS: BASO # 0.1 10^3/uL (0.0-0.2); BASO % 0.4 % (0.0-1.0); EOS # 0.4 10^3/uL (0.0-0.5); EOS % 2.9 % (0.0-3.0); HEMATOCRIT 32.7 % (36.0-47.0); HEMOGLOBIN 9.8 g/dl (12.0-15.5); LYMPH # 1.2 10^3/uL (1.5-5.0); LYMPH % 9.4 % (24.0-44.0); MEAN CORPUSCULAR HEMOGLOBIN 28.6 pg (27.0-33.0); MEAN CORPUSCULAR VOLUME 95.3 fl (80.0-96.0); MONO # 0.9 10^3/uL (0.0-0.8); NEUTROPHILS % 79.6 % (36.0-66.0); PLATELET COUNT, AUTOMATED 239 10^3/uL (150-450); RED BLOOD COUNT 3.43 10^6/uL (4.00-5.40); WHITE BLOOD COUNT 12.6 10^3/uL (4.0-10.0)
[2020-12-03] MEDS: HEPARIN SOD (PORCINE) 5000UNITS/ML 1ML VIAL/SYRINGE SQ SCH ×2 (06:42→20:06)
[2020-12-03] MEDS: LACTOBACILLUS ACIDOPHILUS CAP (BACID) PO SCH ×2 (06:42→20:07)
[2020-12-03] MEDS: FERROUS SULFATE 325MG TAB PO SCH (06:42)
[2020-12-03] MEDS: CLOPIDOGREL 75 MG TAB PO SCH (06:42)
[2020-12-03] MEDS: ASPIRIN 81MG ENTERIC TABLET PO SCH (06:42)
[2020-12-03] MEDS: PANTOPRAZOLE 40MG VIAL (C9113 PER 1) IV SCH ×2 (06:42→20:05)
[2020-12-03] MEDS: LEVOTHYROXINE 125MCG TABLET (0.125MG) PO SCH (06:43)
[2020-12-03] MEDS: CALCITRIOL 0.25 MCG CAP (S0169) PO SCH (06:43)
[2020-12-03] MEDS: DOCUSATE SODIUM 100MG CAPSULE PO SCH ×2 (06:43→20:16)
[2020-12-03 06:53] LABS: ALBUMIN 2.2 GM/DL (3.2-5.2); BILIRUBIN,TOTAL 0.3 MG/DL (0.2-1.0); CALCIUM LEVEL 8.6 MG/DL (8.8-10.2); CREATININE FOR GFR 3.99 MG/DL (0.55-1.30); GLOMERULAR FILTRATION RATE 11.8 (>39); POTASSIUM SERUM 4.6 MEQ/L (3.5-5.1); TOTAL PROTEIN 5.3 GM/DL (6.4-8.2)
[2020-12-03] MEDS: HumaLOG INSULIN (NovoLOG) PER UNIT SC SCH ×4 (07:30→21:00)
[2020-12-03] MEDS: MIDODRINE 5 MG TAB PO SCH ×3 (07:56→17:44)
[2020-12-03] MEDS: NYSTATIN 100,000 UNITS/GM TOPICAL PWD 15 GM TOP SCH ×2 (07:56→20:16)
[2020-12-03 08:00] VITALS: O2SAT 97
[2020-12-03] MEDS: SYMBICORT 160/4.5MCG INHALER 6GM INH SCH ×2 (08:00→20:53)
[2020-12-03] MEDS: SODIUM CHLORIDE 0.9% INJ 10 ML SYR IV PRN (13:25)
--- NOTE | 2020-12-03 13:25 | ECGEPIP ---
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 No remarkable changes but slower heart rate Electronically Signed on 12-03-2020 13:25:24 EDT by Jose Escobar
--- NOTE | 2020-12-03 13:44 | IPN ---
NEPHROLOGY PROGRESS NOTE DATE: 12/03/2020 SUBJECTIVE: Ms. Duran is seen this morning during hemodialysis. She is feeling better today and reports that her nausea has improved and she was able to eat breakfast. She has chronic dyspnea and remains on oxygen. She denies any fever or chills. PHYSICAL EXAMINATION: Temperature 97.6 degrees Fahrenheit, heart rate 80 per minute and respiratory rate 18 per minute. Blood pressure was 106/44 mmHg this morning; however, right now during dialysis it is 128/60 mmHg. Head: Atraumatic. Neck: Hemodialysis catheter in right internal jugular vein is present. Heart: Sounds are irregular. Lungs: Diminished breath sounds at bases. Abdomen: Obese, soft and nontender and bowel sounds are normal. Extremities: Without any cyanosis or clubbing. She has a PICC line in her right arm. Neurologically: She is awake, alert and at her baseline mentation. LABORATORY DATA: Today's labs show: WBC count 12.6, hemoglobin 9.8, hematocrit 32.7, platelets 239. Sodium 136, potassium 4.6, CO2 26, BUN 20, creatinine 3.99, glucose 83 and calcium 8.6. PROBLEMS/PLAN: 1. End-stage renal disease: Patient is being dialyzed and she is tolerating dialysis very well. 2. Congestive heart failure: Volume status seems to be reasonably well compensated. We are trying to remove about 2.5 liters of fluid today which she is tolerating well so far. 3. Anemia: She was transfused last a couple of days ago and her anemia has improved. At present we will continue to monitor closely and she will receive Aranesp 100 mcg once a week. 4. Generalized weakness and deconditioning: Patient has been hospitalized multiple times during the last 6 months. She is very deconditioned and likely to require some subacute rehab. 5. Pneumonia: She is currently afebrile and doing better. She remains on Zosyn.
[2020-12-03 14:00] VITALS: BP 118/58
--- NOTE | 2020-12-03 16:59 | IPNPDOC ---
Text Note Date of Service The patient was seen on 12/03/20. NOTE Subjective: Patient is a 70-year-old female presented to the emergency depar tment short of breath and was found to have bilateral pneumonia. Patient says that she feels weak and tired today but is tolerating dialysis well. Patient says her shortness of breath is improved. Patient states the wound in her groin is also improving. Patient denies any chest pain at this time. Review of systems: General: Patient denies fevers HEENT: Patient denies headaches Cardiovascular: Patient denies chest pain Respiratory: Patient reports improvement in shortness of breath GI: Patient denies abdominal pain, nausea, vomiting, diarrhea : Patient denies increased frequency or pain with urination Extremities: Patient denies swelling or pain in extremities Neurological: Patient denies numbness or tingling in legs Physical exam: Vitals: See below General: Alert and oriented female patient who was laying in bed receiving dialysis when I walked in the room. Patient on nasal cannula oxygen in place. Patient does not appear to be in any acute distress. HEENT: Normocephalic, atraumatic, moist mucous membranes. Neck: No lymphadenopathy or thyromegaly Cardiac: Regular rate and rhythm, no murmurs, normal S1, normal S2 Pulm: Bibasilar crackles, clear in the upper lung aquino Abd: Nondistended, nontender to palpation, normal bowel sounds Ext: No edema bilateral lower extremities Labs: See below Imaging: No new imaging has been performed Assessment/plan: 70-year-old female who is a resident of [facility] with past medical history of ESRD on hemodialysis presented to hospital increased shortness of breath and CHF exacerbation was found to have bilateral pneumonia with acute on chronic hypoxic respiratory failure 1. Acute on chronic respiratory failure with hypoxia and hypercarbia. Patient was found to have CO2 retention. Patient will continue with tabletop BiPAP at night. Continue with nasal cannula oxygen during the day. Continue with dialysis. 2. Bilateral pneumonia. Likely healthcare associated due to multiple hospitalizations. Continue with Zosyn. MRSA PCR negative so vancomycin was discontinued. 3. Chest pain, resolved. Similar episodes in prior hospitalizations. Patient does have a history of coronary artery disease status post CABG. 4. Obesity/DIXON/possible obesity hypoventilation. Continue CPAP at night. 5. ESRD. I appreciate Dr. Marcial's help in treating the patient. Continue with hemodialysis on a Tuesday, Tuesday, Tuesday schedule. 6. Acute on chronic anemia. Patient was given a unit of packed red blood c ells. Continue with Vega per nephrology. 7. Insulin-dependent diabetes mellitus. Continue with sliding scale insulin coverage along with Levemir. Continue consistent carbohydrate diet. 8. Chronic hypotension. Continue midodrine. 9. Chronic heart failure preserved ejection fraction. Fluid status managed by dialysis. 10. GERD with likely gastritis. PPI increased to 40 twice daily. 11. Coronary artery disease status post CABG. Continue with Plavix and statin. 12. Asthma. Continue home inhalers. 13. Hyperlipidemia. Continue statin therapy. 14. Peripheral vascular disease. Status post stenting in bilateral legs. 15. Hypothyroidism. Continue Synthroid. 16. Intertriginous candidiasis. Continue nystatin powder. 17. surgical wound and groin. Continue to keep the area clean and dry. DVT Prophylaxis: Heparin Disposition: Pending clinical improvement. Patient would like to return home rather than go back to [facility] rehab. VS,[place], I+O VSGrayson, I+O Laboratory Tests 12/03/20 05:41 Vital Signs Date Time Temp Pulse Resp B/P (MAP) Pulse Ox O2 Delivery O2 Flow Rate FiO2 12/03/20 08:00 97 Nasal Cannula 1.0 12/03/20 06:00 97.6 80 18 106/44 (64) 11/27/20 08:07 30 I&O- Last 24 Hours up to 6 AM 12/03/20 06:00 Intake Total 630 ml Output Total 0 ml Balance 630 ml GLORIA WINCHESTER DO Dec 03, 2020 16:59
[2020-12-03] MEDS: LEVEMIR (INSULIN DETEMIR) 1 UNITS/0.01ML SC SCH (20:06)
[2020-12-03] MEDS: ATORVASTATIN 20 MG TAB PO SCH (20:07)
[2020-12-03 22:00] VITALS: BP 114/55
[2020-12-04] MEDS: IPRATROPIUM 0.5MG/ALBUTEROL 2.5MG INH SOL UD 3ML (DUONEB) NEB SCH ×2 (02:00→08:00)
[2020-12-04] MEDS: PIPERACILLIN/TAZOBACTAM SOD 2.25 GM in D5W MINI-BAG PLUS 50 ML IV SCH (04:11)
[2020-12-04] MEDS: SODIUM CHLORIDE 0.9% INJ 10 ML SYR IV SCH (05:22)
[2020-12-04 06:00] VITALS: BP 116/58
[2020-12-04] MEDS: HumaLOG INSULIN (NovoLOG) PER UNIT SC SCH (07:25)
[2020-12-04] MEDS: SYMBICORT 160/4.5MCG INHALER 6GM INH SCH (08:04)
[2020-12-04] MEDS: LEVOTHYROXINE 125MCG TABLET (0.125MG) PO SCH (08:16)
[2020-12-04] MEDS: CLOPIDOGREL 75 MG TAB PO SCH (08:16)
[2020-12-04] MEDS: CALCITRIOL 0.25 MCG CAP (S0169) PO SCH (08:16)
[2020-12-04] MEDS: MIDODRINE 5 MG TAB PO SCH (08:16)
[2020-12-04] MEDS: FERROUS SULFATE 325MG TAB PO SCH (08:16)
[2020-12-04] MEDS: ASPIRIN 81MG ENTERIC TABLET PO SCH (08:16)
[2020-12-04] MEDS: LACTOBACILLUS ACIDOPHILUS CAP (BACID) PO SCH (08:16)
[2020-12-04] MEDS: SODIUM CHLORIDE 0.9% INJ 10 ML SYR IV PRN (08:17)
[2020-12-04] MEDS: DOCUSATE SODIUM 100MG CAPSULE PO SCH (08:17)
[2020-12-04] MEDS: PANTOPRAZOLE 40MG VIAL (C9113 PER 1) IV SCH (08:17)
[2020-12-04] MEDS: NYSTATIN 100,000 UNITS/GM TOPICAL PWD 15 GM TOP SCH (08:17)
[2020-12-04 08:19] VITALS: BP 118/53
[2020-12-04 09:00] VITALS: O2SAT 98
[2020-12-04 13:26] LABS: BASO # 0.1 10^3/uL (0.0-0.2); BASO % 0.5 % (0.0-1.0); EOS # 0.4 10^3/uL (0.0-0.5); EOS % 2.6 % (0.0-3.0); HEMATOCRIT 35.9 % (36.0-47.0); HEMOGLOBIN 10.5 g/dl (12.0-15.5); LYMPH # 0.8 10^3/uL (1.5-5.0); MEAN CORPUSCULAR HEMOGLOBIN 28.5 pg (27.0-33.0); MEAN CORPUSCULAR HGB CONC 29.2 g/dl (32.0-36.5); MEAN CORPUSCULAR VOLUME 97.6 fl (80.0-96.0); MONO # 0.9 10^3/uL (0.0-0.8); MONO % 6.2 % (2.0-8.0); NEUTROPHILS # 11.8 10^3/uL (1.5-8.5); NEUTROPHILS % 84.1 % (36.0-66.0); PLATELET COUNT, AUTOMATED 184 10^3/uL (150-450); RED BLOOD COUNT 3.68 10^6/uL (4.00-5.40)
[2020-12-04 13:45] LABS: CREATININE FOR GFR 2.93 MG/DL (0.55-1.30); GLOMERULAR FILTRATION RATE 16.8 (>39); MAGNESIUM LEVEL 1.7 MG/DL (1.8-2.4); POTASSIUM SERUM 5.1 MEQ/L (3.5-5.1)
--- NOTE | 2020-12-04 18:20 | IPN ---
PROGRESS NOTE DATE: 12/04/2020 Mrs. Duran is seen this morning on her bedside. She is feeling about the same. Nursing staff reports that she has been very weak. She is unable to even get up from the bed. She has chronic dyspnea and remains on oxygen. She denies any nausea or vomiting. Patient was dialyzed yesterday, which she tolerated reasonably well. PHYSICAL EXAMINATION: Temperature 97.3 degrees Fahrenheit, heart rate 96 per minute, respiratory rate 20 per minute, blood pressure 118/53 mmHg, and oxygen saturation 98%. Head is atraumatic. Neck supple, and jugular venous distention (JVD) difficult to be assessed. She is using oxygen via nasal cannula. Heart sounds are irregular and lungs with diminished breath sounds and few basilar rales. Abdomen obese, soft, and nontender, and bowel sounds are normal. Extremities without any cyanosis or clubbing. She has a Perm-A-Cath in her right internal jugular vein. Neurologically she is at her baseline mentation without a focal deficit. PROBLEMS: 1. End-stage renal disease. Patient was dialyzed yesterday and will be scheduled for next dialysis tomorrow. 2. Anemia. Her anemia has been stable and will be managed with dialysis. She receives Aranesp 100 mcg once a week. 3. Congestive heart failure. Volume status still slightly decompensated. We will try to remove fluid more aggressively as tolerated. 4. Hypotension. She has chronic hypotension and has been on midodrine. We will continue with the same.
--- NOTE | 2020-12-04 19:36 | DS.PDOC ---
Discharge Summary General Date of Admission Nov 26, 2020 at 20:12 Date of Discharge 12/04/2020 Primary Care Physician: JAQUAN MONTALVO DO Attending Physician: GLORIA WINCHESTER DO Specialist/Consultants Involve: Scar Montalvo MD Discharge Summary PROCEDURES PERFORMED DURING STAY: None. ADMITTING DIAGNOSES: 1. Acute on chronic respiratory failure. 2. Community-acquired pneumonia 3. ESRD with hemodialysis on a Tuesday schedule 4. History of GI bleed 5. Chronic heart failure preserved ejection fraction 6. Insulin-dependent diabetes mellitus 7. Asthma 8. GERD 9. Hypothyroidism 10. Diverticulosis 11. DIXON 12. Coronary artery disease status post CABG 07/2020 DISCHARGE DIAGNOSES: 1. Acute on chronic respiratory failure with hypoxia and hypercarbia. 2. Bilateral pneumonia, likely healthcare associated 3. Chest pain resolved 4. Obesity/DIXON 5. ESRD 6. Acute on chronic anemia 7. Insulin-dependent diabetes mellitus 8. Chronic hypotension 9. Chronic heart failure with preserved ejection fraction currently compensated 10. GERD with likely gastritis 11. Coronary artery disease status post CABG 12. Asthma 13. Hyperlipidemia 14. Peripheral vascular disease 15. Hypothyroidism 16. Intertriginous candidiasis 17. Surgical wound in groin COMPLICATIONS/CHIEF COMPLAINT: Acute Rf, Leukocytosis, Pneumonia, Sob. HISTORY OF PRESENT ILLNESS: Patient is a 70-year-old female presented the emergency department from hemodialysis with shortness of breath, runny nose, cough for 2 days duration was found to have an oxygen saturation in the 70s during hemodialysis. She was picked up by EMS and placed on 4 L of oxygen which increased her O2 saturations into the 90s. She states that she had some shortness of breath, runny nose and nonproductive cough for the last few days. She denies chest pain, fever, chills or coughing up any mucus. Patient is a resident of [facility]. Patient was recently hospitalized [facility] on 11/07, 10/20/2020, and 10/11/2020 for shortness of breath, CHF exacerbation, and acute on chronic respiratory failure respectively. The patient is a poor historian is on a BiPAP machine when the admitting provider spoke with her. It is difficult to get history from her at this time because of that. In the emergency department she was found to be in respiratory failure and put on BiPAP. Left external jugular venous access was established but the patient pulled this out.. HOSPITAL COURSE: Patient was able to be transitioned from BiPAP to nasal cannula on her first day of hospitalization. Patient was on IV Zosyn for possible bilateral pneumonia that was most likely healthcare associated. Patient did receive 1 dose of vancomycin prior to the MRSA PCR coming back negative. Patient continues to tolerate dialysis well and with the help of nephrology, patient was fluid optimized. Patient was given tabletop BiPAP to be used at night due to possible DIXON as she continues to have CO2 retention but this did improve throughout the patient's hospitalization. Patient is ABG continue to improve. There was an attempt to try to discharge the patient home however, patient's daughter needed to come in and work with physical and Occupational Therapy to see if this would be a feasible option. On 12/03/2020, patient's daughter came into the hospital and work with physical and Occupational Therapy however, patient is a max to assist and patient will be unable to be cared for at home so the decision was made to attempt to discharge the patient back to [facility] rehab. Patient received 7 days of IV Zosyn which was stopped on the day of discharge. Patient was feeling better and her fluid status was optimized. Patient received a bed offer, had a negative Covid test and was discharged to [facility] on 12/04/2020. DISCHARGE MEDICATIONS: Please see below. ALLERGIES: Please see below. PHYSICAL EXAMINATION ON DISCHARGE: VITAL SIGNS: Please see below. General: Alert and oriented female patient with nasal cannula oxygen in place who was sitting up in bed when I walked in. Patient did not appear to be in any acute distress. HEENT: Normocephalic, atraumatic, moist mucous membranes. Neck: No lymphadenopathy or thyromegaly Cardiac: Regular rate and rhythm, no murmurs, normal S1, normal S2 Pulm: Diminished breath sounds bilaterally with faint bibasilar crackles Abd: Nondistended, nontender to palpation, normal bowel sounds Ext: No edema bilateral lower extremities LABORATORY DATA: Please see below. IMAGING: Chest x-ray performed on 11/26/2020 was reported to show no significant change. Mild interstitial edema is suspected. Pneumonia cannot be ruled out. CT of the chest without contrast performed on 11/26/2020 was reported to show several segments of consolidated lung right lower lobe with air bronchograms consistent with atelectasis and pneumonia right lower lobe. There is discoid atelectasis and infiltrate at the left lung field/lingula. Gallbladder measures 4.3 cm and probable mild hydrops. Chest x-ray on 11/27/2020 was reported to show stable exam PROGNOSIS: Fair ACTIVITY: As tolerated. DIET: Renal diet DISCHARGE PLAN: Discharged to [facility] DISPOSITION: [facility]. DISCHARGE INSTRUCTIONS: 1. Follow-up with provider at [facility]. 2. Continue with regular scheduled dialysis 3. Return to emergency department symptoms worsen ITEMS TO FOLLOWUP ON ON OUTPATIENT: 1. Pneumonia to resolution. DISCHARGE CONDITION: Stable. TIME SPENT ON DISCHARGE: 35 minutes. Vital Signs/I&Os Vital Signs Date Time Temp Pulse Resp B/P (MAP) Pulse Ox O2 Delivery O2 Flow Rate FiO2 12/04/20 09:00 98 Nasal Cannula 1.0 12/04/20 08:19 96 118/53 (74) 12/04/20 06:00 97.3 20 I&O- Last 24 Hours up to 6 AM 12/04/20 06:00 Intake Total 510 ml Output Total 2500 ml Balance -1990 ml Laboratory Data Labs 24H Laboratory Tests 2 12/03/20 20:03: Bedside Glucose (Misc Panel) 130H 12/04/20 05:25: Bedside Glucose (Misc Panel) 88 12/04/20 07:00: Bedside Glucose (Misc Panel) 78L 12/04/20 11:04: Coronavirus (COVID-19)(PCR) NEGATIVE 12/04/20 12:16: Immature Granulocyte % (Auto) 0.6, Neutrophils (%) (Auto) 84.1H, Lymphocytes (%) (Auto) 6.0L, Monocytes (%) (Auto) 6.2, Eosinophils (%) (Auto) 2.6, Basophils (%) (Auto) 0.5, Neutrophils # (Auto) 11.8H, Lymphocytes # (Auto) 0.8L, Monocytes # (Auto) 0.9H, Eosinophils # (Auto) 0.4, Basophils # (Auto) 0.1, Nucleated Red Blood Cells % (auto) 0.0, Anion Gap 6L, Glomerular Filtration Rate 16.8L, Calcium Level 9.0, Magnesium Level 1.7L CBC/BMP Laboratory Tests 12/04/20 12:16 FSBS Laboratory Tests Test 12/03/20 20:03 12/04/20 05:25 12/04/20 07:00 Range/Units Bedside Glucose (Misc Panel) 130 88 78 83-110 MG/DL Microbiology Microbiology 11/27/20 Stool Occult Blood (NAWAF) - Final, Complete 11/27/20 Blood Culture - Final, Complete NO GROWTH AFTER 5 DAYS 11/26/20 Blood Culture - Final, Complete Staphylococcus Epidermidis 11/26/20 Respiratory Virus Panel (PCR) (NAWAF) - Final, Complete Discharge Medications Scheduled Aspirin (Aspirin EC) 81 Mg Tab, 81 MG PO DAILY, (Reported) Atorvastatin Calcium (Atorvastatin Calcium) 40 Mg Tab, 40 MG PO QHS, (Reported) Budesonide/Formoterol (Symbicort 160-4.5 Mcg Inhaler) 6 Gm Hfa.aer.ad, 2 PUFF INH BID, (Reported) Calcitriol (Calcitriol) 0.25 Mcg Cap, 0.25 MCG PO DAILY, (Reported) Cholecalciferol (Vitamin D3) (Vitamin D3) 1,000 Unit Tablet, 1,000 UNITS PO DAILY, (Reported) Clopidogrel Bisulfate (Clopidogrel) 75 Mg Tablet, 75 MG PO DAILY, (Reported) Ferrous Sulfate (Ferrous Sulfate) 325 Mg Tablet, 325 MG PO DAILY, (Reported) Insulin Glargine,Hum.rec.anlog (Lantus Solostar) 100 Unit/1 Ml Insuln.pen, 30 UNITS SC DAILY, (Reported) Insulin Lispro (Insulin Lispro) 100 Unit/1 Ml Vial, 1 DOSE SC AC, (Reported) SLIDING SCALE: 151-200 GIVE 2 UNITS 201-250 GIVE 4 UNITS 251-300 GIVE 6 UNITS 301-350 GIVE 8 UNITS 351-400 GIVE 10 UNITS 401-450 GIVE 12 UNITS L.acidoph/L.bulg/B.bif/S.therm (Bacid Caplet) 1 Each Tablet, 1 TAB PO BID, (Reported) Levothyroxine Sodium (Levothyroxine Sodium) 125 Mcg Tablet, 125 MCG PO DAILY, (Reported) Metoprolol Tartrate (Metoprolol Tartrate) 25 Mg Tablet, 12.5 MG PO TID, (Reported) Omeprazole (Omeprazole) 20 Mg Capsule.dr, 20 MG PO DAILY, (Reported) Torsemide (Torsemide) 20 Mg Tablet, 20 MG PO 4XWK, (Reported) TAKES ADDITIONAL 20MG TAB ON NON-DIALYSIS DAYS SUN, TUES, THURS, SAT Torsemide (Torsemide) 20 Mg Tablet, 20 MG PO DAILY, (Reported) Scheduled PRN Albuterol Sulfate (Ventolin Hfa) 108 Mcg/Act Aer, 2 PUFFS INH Q4H PRN for SHORTNESS OF BREATH, (Reported) Guaifenesin (Guaifenesin) 100 Mg/5 Ml Liquid, 100 MG PO Q4H PRN for CONGESTION, (Reported) Midodrine HCl (Midodrine HCl) 10 Mg Tablet, 10 MG PO TID PRN for HYPOTENSION, (Reported) Nitroglycerin (Nitrostat) 0.4 Mg Subl, 0.4 MG SL NITRO PRN for CHEST PAIN, (Reported) Allergies Coded Allergies: cephalexin (Verified Allergy, Severe, RASH, DYSPNEA, 11/05/19) gatifloxacin (Verified Allergy, Severe, RASH, DYSPNEA, 11/05/19) tramadol (Verified Allergy, Severe, RASH, DYSPNEA, 11/05/19) silver nitrate (Verified Allergy, Intermediate, HIVES, RASH, 11/05/19) chlorhexidine (Verified Allergy, Mild, RASH, 11/05/19) latex (Verified Allergy, Mild, RED, SWOLLEN, RASH, 11/05/19) nitrofurantoin (Verified Allergy, Mild, RASH, 11/05/19) sulfamethoxazole (Verified Adverse Reaction, Intermediate, EFFECTS KIDNEY FUNCTION, 11/05/19) trimethoprim (Verified Adverse Reaction, Intermediate, EFFECTS KIDNEY FUNCTION, 11/05/19) GLORIA WINCHESTER DO Dec 04, 2020 19:36
== END 2020-12-04 12:35 | DRG 193 ==
LOC: M ED 15:28 → M ED INP 20:12 → ENRESERV 11-27 14:35 → M MSPAV 11-27 17:49
PROVIDERS: ADMIT Family Medicine; ATTEND Family Medicine
PROC: 02HV33Z Insertion of Infusion Device into Superior Vena Cava, Percutaneous Approach (ICD-10-PCS; principal; 2020-11-27 15:00)
PROC: 5A1D70Z Performance of Urinary Filtration, Intermittent, Less than 6 Hours Per Day (ICD-10-PCS; 2020-11-28)
DX: J18.9 Pneumonia, unspecified organism (principal); J96.21 Acute and chronic respiratory failure with hypoxia; N18.6 End stage renal disease; J96.22 Acute and chronic respiratory failure with hypercapnia; D62 Acute posthemorrhagic anemia; I50.32 Chronic diastolic (congestive) heart failure; E66.9 Obesity, unspecified; G47.33 Obstructive sleep apnea (adult) (pediatric); E11.22 Type 2 diabetes mellitus with diabetic chronic kidney disease; K21.9 Gastro-esophageal reflux disease without esophagitis; I25.10 Atherosclerotic heart disease of native coronary artery without angina pectoris; Z95.5 Presence of coronary angioplasty implant and graft; I95.9 Hypotension, unspecified; J45.909 Unspecified asthma, uncomplicated; E78.5 Hyperlipidemia, unspecified; I73.9 Peripheral vascular disease, unspecified; E03.9 Hypothyroidism, unspecified; Z99.2 Dependence on renal dialysis; I27.20 Pulmonary hypertension, unspecified; Z90.49 Acquired absence of other specified parts of digestive tract; Z98.49 Cataract extraction status, unspecified eye; Z79.82 Long term (current) use of aspirin; Z79.4 Long term (current) use of insulin; Z79.899 Other long term (current) drug therapy; Z88.1 Allergy status to other antibiotic agents; Z88.2 Allergy status to sulfonamides; Z88.8 Allergy status to other drugs, medicaments and biological substances; Z91.040 Latex allergy status; Z20.822 Contact with and (suspected) exposure to COVID-19; D63.1 Anemia in chronic kidney disease; R07.89 Other chest pain; B37.9 Candidiasis, unspecified